=== PATIENT | female | born 1950 | race Caucasian/White ===

== ENCOUNTER 2017-03-12 21:58 | Inpatient (IN) | payer MEDICARE, SELFPAY ==
[2017-03-12 22:01] VITALS: BP 140/90; PULSE 90; RESP 20; TEMP 37.2; O2SAT 95; BMI 24.7
--- NOTE | 2017-03-12 23:13 | RAD_ITS ---
STUDY: X-RAY CHEST REASON FOR EXAM: Female, 67 years old. 100.1, chills, coughing since last night. Chemotherapy 03/04. History of breast cancer. TECHNIQUE: PA and lateral views of the chest. COMPARISON: 02/27/2017 FINDINGS: Stable left internal jugular port with catheter tip over the mid superior vena cava. Superimposed monitor leads, surgical clips right axilla with right mastectomy. There is stable hyperinflation interstitial prominence. There is left retrocardiac opacification, new since previous exam. There is no demonstrated pleural abnormality. Normal size heart. Normal mediastinum and wil. Normal visualized pulmonary arteries. There is atherosclerotic calcification of the aortic arch with tortuosity. There is demineralization of the osseous structures. Stable compression T12 vertebral body. Normal visualized ribs, clavicles, and shoulders. There is no demonstrated abnormality of the visualized soft tissue structures of the upper abdomen. RAD/Chest PA and Lateral IMPRESSION: Hyperinflation, mild chronic appearing interstitial lung disease. New airspace disease left retrocardiac lung possible early pneumonia. Other nonacute findings as outlined above. Electronically Signed: Ramya Mayberry MD at 1:05 EST , Service support ,
[2017-03-12 23:21] VITALS: BP 127/89; PULSE 92; RESP 26; O2SAT 96
[2017-03-12] MEDS: 0.9% Normal Saline 1,000 ML 125 ML IV (23:58)
[2017-03-13] VITALS (13 sets, daily range): BP systolic 110–127; BP diastolic 52–99; PULSE 80–101; RESP 17–24; TEMP 36.6–36.9; O2SAT 95–98; BMI 23.8
[2017-03-13 00:08] LABS: Hematocrit 35.4 % (37-47); Hemoglobin 11.7 g/dl (12.0-15.0); Mean Corp Hgb Conc 33.1 g/gl (32-36); Mean Corpuscular Hgb 30.1 pg (27.0-32.0); Mean Platelet Vol. 10.4 fl (6.2-12.0); Platelet Count 268 K/mm3 (150-450); RBC Distribution Width CV 16.1 % (11.6-14.6); RBC Distribution Width SD 53.4 fl (35.1-43.9); Red Blood Count 3.89 M/mm3 (4.2-5.4); White Blood Count 29.3 K/mm3 (4.4-11.0)
[2017-03-13 00:10] LABS: Differential Indicated MANUAL DIFF; POSITIVE COUNT YES; POSITIVE DIFFERENTIAL YES; POSITIVE MORPHOLOGY YES
[2017-03-13 00:21] LABS: ALB/GLOB Ratio 0.9 RATIO (0.9-2.4); AST(SGOT) 13 U/L (15-37); Alanine Aminotransfer ALT/SGPT 20 U/L (12-78); Albumin, Serum 3.2 g/dL (3.4-5.0); Alkaline Phosphatase 156 U/L (45-117); Anion Gap 11 (5-15); BUN 11 mg/dL (7-18); BUN/Creat Ratio 21.9 RATIO (10-20); Calcium,Total 8.8 mg/dL (8.5-10.1); Chloride 102 mmol/L (98-107); EST Glomerular Filtration Rate 130 mL/min (>60); Est Glom Filt Rate - Afr Amer 157 mL/min (>60); Estimated Creatinine Clearance 47.35 ml/min; Globulin 3.6 g/dL (2.2-4.2); Glucose 83 mg/dL (70-110); Potassium 3.5 mmol/L (3.5-5.1); Protein, Total 6.8 g/dL (6.4-8.2); Sodium Level 137 mmol/L (136-145)
[2017-03-13 00:53] LABS: Anisocytosis 1+; Hypochromasia RARE; Lymphocyte 5 % (19-41); Metamyelocyte 3 % (0-1); Microcytosis 1+; Monocyte 4 % (0-10); Myelocyte 1 (0-0); Neutrophil-Band 9 % (0-5); Neutrophil-Segmented 78 % (47-70); Polychromasia 1+; Total Cells Counted 100 (MANUAL DIFF)
[2017-03-13 00:54] LABS: Dohle Bodies RARE; Toxic Granulation 1+; Vacuolated Cells RARE
[2017-03-13 00:55] LABS: Absolute Lymphocyte Count 1.47 X10^3/ul (0.83-4.51); Absolute Neutrophil Count 25.5 X10^3/uL (2.0-7.7)
[2017-03-13 00:59] LABS: Bacteria 0 SEEN /hpf (None Seen)
[2017-03-13 01:01] LABS: Color, Urine Yellow (Yellow); Glucose, Dipstick Normal (Normal); Leukocyte Esterase-Dipstick 100 /ul (Negative); Nitrite-Dipstick Negative (Negative); Occult Blood-Urine 25 /ul (Negative); Protein-Dipstick 15 mg/dl (Negative); Urine Bilirubin Dipstick Negative (Negative); Urine Clarity Sl. Cloudy (Clear); Urine Urobilinogen Normal (Normal)
[2017-03-13 01:05] LABS: Ketone-Dipstick 150 mg/dl (Negative)
[2017-03-13 01:08] LABS: Mucous, Urine 2+ /hpf (<or=2+); Red Blood Cells-Urine 0-5 SEEN /hpf (0-5); Squamous Epithelial Cells - UA > 100 SEEN /hpf (5-10); White Blood Cells 10-25 SEEN /hpf (0-5)
--- NOTE | 2017-03-13 01:28 | ED.DCSUM_ITS ---
- ER Visit Summary Date of Service: 03/13/17 Chief Complaint: Fever 100.9 and cough recent chemotherapy History of Present Illness: The patient is a 67 F history of stage II breast cancer status post mastectomy who received her third course of chemotherapy March 04 presents with documented temperature 100.9, cough and not feeling well. She denies headache, double vision, blurred vision loss of vision. She denies photophobia. She denies earache or sore throat. Her cough is nonproductive. She has no chest pain of any type. She does plan of nausea without vomiting diarrhea. She denies dysuria, frequency, urgency or hematuria. She denies any skin lesions or bruising easily. Physical Examination: Vital signs are unremarkable. Patient appears ill. She is thin and pale. Pupils equal round reactive. Extra muscle intact. Nares slight boggy nasal mucosa. Posterior pharyngeal erythema x-ray. Mucosa is dry. TMs are normal. Heart is regular without murmur, gallop or rub. Lungs are without wheeze, rales or rhonchi. Breath sounds are noted bilaterally. Abdomen is soft nontender with no palpable semester no bruit. There are no skin lesions noted. Neuro exam is nonfocal. Test Results: White count is 29.3 thousand with 78 segs, 9 bands and myelocytes and metamyelocytes with toxic granulation. Electrode panel was unremarkable. Urine is a contaminated specimen. Lactate is pending. Chest x-ray reveals a left lower lobe infiltrate that is new from February 17. Emergency Department Course and Treatment: Neutropenic order set was initiated. Based on chest x-ray findings patient received 700 mg of levofloxacin IV piggyback. Treatment Plan: IV antibiotics, admission to the hospital Disposition: [facility] admission Impression: 1. Left lower lobe pneumonia 2. Sepsis 3. Immune suppressed patient 4. Stage II breast cancer, right 5. Status post total mastectomy This note was generated with [employer] dictation software. It may contain incorrect words, spelling, and punctuation that were not noted in review of the chart prior to signing ED Disposition - Plan for ED Patient: Chief Complaint: Fever Referrals: Weston Tobar MD [Primary Care Provider] -
--- NOTE | 2017-03-13 01:30 | PCM.HP.STD ---
Problem List (1) Chronic back pain Status: Chronic Qualifiers: Back pain location: back pain in unspecified location Back pain laterality: unspecified Qualified Code(s): M54.9 - Dorsalgia, unspecified; G89.29 - Other chronic pain (2) IBS (irritable bowel syndrome) Status: Chronic Qualifiers: Irritable bowel syndrome type: unspecified Qualified Code(s): K58.9 - Irritable bowel syndrome without diarrhea (3) GERD (gastroesophageal reflux disease) Status: Chronic Qualifiers: Esophagitis presence: esophagitis presence not specified Qualified Code(s): K21.9 - Gastro-esophageal reflux disease without esophagitis (4) Rheumatoid arthritis Status: Chronic Qualifiers: Rheumatoid arthritis location: unspecified site Rheumatoid factor presence: unspecified presence Qualified Code(s): M06.9 - Rheumatoid arthritis, unspecified (5) Anxiety and depression Status: Chronic (6) Invasive ductal carcinoma of right breast Status: Chronic Comment: Patient complains of pain all over body area as well as in her chest did give her her Percocet 5/325#15 but states she would have to get any additional pain meds from oncology if she needed more for pain due to chemo. History of Present Illness Date of Admission: 03/13/17 Chief Complaint: Fever, Chills, Coughing, Recent chemotherapy The patient is a 67 y/o F w/ PMHx: Rheumatoid Arthritis, Chronic Back Pain, IBS, Anxiety and Depression, Invasive ductal carcinoma of right breast s/p mastectomy, ongoing chemotherapy (03/04/17 last chemotherapy) following w/ Dr. Esparza who presents to the [facility] ED on 03/13/17 w/ history of ongoing fever, chills, cough, dyspnea x 24 hours. In the ED work-up included T 98.9, HR 90s, BP 127/89, RR 26-->20, 95% on RA, CBC w/ WBC 29.3, Hgb 11.7, Plts 268 with L shift, CMP w/ pending LA, alk phos 156, AST/ALT 13/20, UA poor sample, CXR w/ hyperinflation, mild chronic appearing interstitial lung disease, new airspace disease left retrocardiac lung. In the ED patient administered NS, levaquin. Past Medical History Past Medical History (Chronic Problems): Chronic Problems (Last Reviewed 02/27/17 @ 11:10 by Bryanna Nieto) Chronic back pain (Chronic) IBS (irritable bowel syndrome) (Chronic) GERD (gastroesophageal reflux disease) (Chronic) Rheumatoid arthritis (Chronic) Anxiety and depression (Chronic) Invasive ductal carcinoma of right breast (Chronic) Patient complains of pain all over body area as well as in her chest did give her her Percocet 5/325#15 but states she would have to get any additional pain meds from oncology if she needed more for pain due to chemo. Allergies Antihistamines - Alkylamine Allergy (Verified 03/12/17 22:03) TACHYCARDIA Antihistamines - Ethanolamine Allergy (Verified 03/12/17 22:03) TACHYCARDIA Antihistamines - Ethylenediamine Allergy (Verified 03/12/17 22:03) TACHYCARDIA Antihistamines - Piperazine Allergy (Verified 03/12/17 22:03) TACHYCARDIA Antihistamines - Piperidine Allergy (Verified 03/12/17 22:03) TACHYCARDIA diphenhydramine [From Benadryl] Allergy (Verified 03/12/17 22:03) TACHYCARDIA Home Medications: Ambulatory Orders Medication Instructions Recorded ALPRAZolam [Xanax] 0.5 mg PO BID PRN PRN #30 11/17/16 Lidocaine/Prilocaine 2.5 % TP DAILY PRN 01/21/17 [Lidocaine-Prilocaine Cream] Omeprazole 20 mg PO DAILY 02/11/17 Ibuprofen [Ibuprofen Ib] 200 mg PO Q6H PRN PRN 02/27/17 Acetaminophen [Tylenol Extra 500 mg PO Q6H PRN PRN 03/12/17 Strength] Loratadine [Claritin] 10 mg PO DAILY 03/12/17 Surgical History: - - R mastectomy, port placement, , appendectomy, cholecystectomy, lymph node dissection R axilla, L TKR. Psychiatric History: Anxiety, Depression [employer] History: No pertinent [employer] history Lives: Spouse/ Significant Other Smoking Status: Light Smoker (<10/day) Tobacco Use: Cigarettes Alcohol: None Drugs: None - *Family History Maternal Family History: Family History (Last Reviewed 02/27/17 @ 11:10 by Bryanna Nieto) Mother Heart disease Diabetes Arthritis Father Heart disease History Items: - - Maternal family history of arthritis, heart disease, diabetes. Paternal Family History: Family History (Last Reviewed 02/27/17 @ 11:10 by Bryanna Nieto) Mother Heart disease Diabetes Arthritis Father Heart disease History Items: - - Paternal family history of heart disease. Review of Systems Constitutional: Reports: Chills, Fever, Malaise, Weakness, Fatigue. Denies: Weight Change HEENT: Denies: Head Aches, Sinus Congestion, Sinus Drainage Cardiovascular: Denies: Chest Pain, Palpitations Respiratory: Reports: Cough, Shortness of Breath, Shortness of breath at rest, Shortness of breath upon exertion, Sputum production Gastrointestinal: Denies: Abdominal Pain, Nausea, Vomiting Genitourinary: Denies: Dysuria Musculoskeletal: Denies: Joint Pain, Joint Tenderness Skin: Denies: Rash, Wounds Neurological: Denies: Numbness, Tingling, Focal weakness Psychiatric: Reports: Anxiety, Depression. Denies: Homicidal Ideations, Suicidal Ideations Hematologic/ Lymphatic: Reports: Anemia. Denies: Easy Bruising, Easy Bleeding VTE Information - Inpt Only VTE Present on Admission: No VTE Mechan Device Prophylaxis: SCD's VTE Pharm Prophylaxis ordered?: No Subjective: Seated upright in the ED bed, fatigued appearing, NAD. Objective: Physical Examination: General: awake, alert, oriented x 3 and cooperative, seated upright in the ED bed, fatigued appearance, ill appearing. Skin: normal color, turgor, no icterus, cyanosis. HEENT: AT/NC, EOMI, PERRLA, dry MM, no carotid bruits or JVD noted. Lungs: Diminished BS, coarse bases, L>R, occasional expiratory wheeze noted, mild effort. Heart: Regular rate and rhythm; no gallop, rub audible, L chest port in place. Abdomen: soft, NTTP, ND, normal BS, no HSM. Extremities: no cyanosis, clubbing, or edema. Neurological: patient awake, alert, oriented x 3; cognitive function intact; pupils equally reactive to light and accomodation; cranial nerves II-XII grossly normal, moving all 4 extremities, no focal deficits, strength severely globally decreased secondary to acute presentation. Psychiatric: affect appears flat, no acute evidence of depressive or anxiety feelings. - Physical Exam Vital Signs Temp Pulse Resp BP Pulse Ox 98.3 F 90 20 H 127/66 H 98 03/13/17 00:59 03/13/17 00:59 03/13/17 00:59 03/13/17 00:59 03/13/17 00:59 Oxygen Delivery Method Room Air Weight: 122 lb 12.76 oz Body Mass Index (BMI) 24.7 Laboratory Tests Past 24 Hrs 03/12/17 03/12/17 03/13/17 23:45 23:45 00:45 WBC 29.3 H RBC 3.89 L Hgb 11.7 L Hct 35.4 L MCV 91.0 MCH 30.1 MCHC 33.1 RDW 16.1 H RDW Differential 53.4 H Plt Count 268 MPV 10.4 Neut % (Auto) Not Reportable Absolute Neuts (auto) 25.5 H Absolute Lymphs (auto) 1.47 Total Counted 100 Neutrophils % (Manual) 78 H Band Neutrophils % 9 H Lymphocytes % (Manual) 5 L Monocytes % (Manual) 4 Metamyelocytes % 3 H Myelocytes % 1 H Differential Comment RARE Diff Path Review May foll Toxic Granulation 1+ Dohle Bodies RARE Polychromasia 1+ Hypochromasia RARE Anisocytosis 1+ Microcytosis 1+ Sodium 137 Potassium 3.5 Chloride 102 Carbon Dioxide 24.0 Anion Gap 11 BUN 11 Creatinine 0.50 L Estim Creat Clear Calc 47.35 Est GFR (MDRD) Af Amer 157 Est GFR (MDRD) Non-Af 130 BUN/Creatinine Ratio 21.9 H Glucose 83 Lactic Acid Calcium 8.8 Total Bilirubin 0.40 AST 13 L ALT 20 Alkaline Phosphatase 156 H Total Protein 6.8 Albumin 3.2 L Globulin 3.6 Albumin/Globulin Ratio 0.9 Urine Color Yellow Urine Clarity Sl. Cloudy Urine pH 6.0 Ur Specific [place] 1.020 Urine Protein 15 H Urine Glucose (UA) Normal Urine Ketones 150 H Urine Occult Blood 25 H Urine Nitrite Negative Urine Bilirubin Negative Urine Urobilinogen Normal Ur Leukocyte Esterase 100 H Urine RBC 0-5 SEEN Urine WBC 10-25 SEEN Ur Squamous Epith Cells > 100 SEEN Urine Bacteria 0 SEEN Urine Mucus 2+ 03/13/17 01:18 WBC RBC Hgb Hct MCV MCH MCHC RDW RDW Differential Plt Count MPV Neut % (Auto) Absolute Neuts (auto) Absolute Lymphs (auto) Total Counted Neutrophils % (Manual) Band Neutrophils % Lymphocytes % (Manual) Monocytes % (Manual) Metamyelocytes % Myelocytes % Differential Comment Diff Path Review Toxic Granulation Dohle Bodies Polychromasia Hypochromasia Anisocytosis Microcytosis Sodium Potassium Chloride Carbon Dioxide Anion Gap BUN Creatinine Estim Creat Clear Calc Est GFR (MDRD) Af Amer Est GFR (MDRD) Non-Af BUN/Creatinine Ratio Glucose Lactic Acid Pending Calcium Total Bilirubin AST ALT Alkaline Phosphatase Total Protein Albumin Globulin Albumin/Globulin Ratio Urine Color Urine Clarity Urine pH Ur Specific [place] Urine Protein Urine Glucose (UA) Urine Ketones Urine Occult Blood Urine Nitrite Urine Bilirubin Urine Urobilinogen Ur Leukocyte Esterase Urine RBC Urine WBC Ur Squamous Epith Cells Urine Bacteria Urine Mucus Assessment/Plan The patient is a 67 y/o F w/ PMHx: Rheumatoid Arthritis, Chronic Back Pain, IBS, Anxiety and Depression, Invasive ductal carcinoma of right breast s/p mastectomy, ongoing chemotherapy (03/04/17 last chemotherapy) following w/ Dr. Esparza who presents to the [facility] ED on 03/13/17 w/ history of ongoing fever, chills, cough, dyspnea x 24 hours. (1) Acute Sepsis secondary to Community Acquired Pneumonia: CXR w/ hyperinflation, mild chronic appearing interstitial lung disease, new airspace disease left retrocardiac lung. Admission CBC w/ WBC 29.3, LA pending. Will admit to [facility], maintain on oxygen with wean as tolerated to room air, continue ATC duonebs, PRN albuterol, maintained on IV Rocephin and Azithromycin, HOB, IS parameters w/ pending sputum cultures and urine antigens. Bld cx x 2 obtained in the ED. (2) Invasive ductal carcinoma of right breast: Recent Dx, 10/2016 s/p mastectomy, ongoing chemotherapy w/ 03/04/17 last chemotherapy, following w/ Dr. Esparza. Mag, phos pending. (3) Rheumatoid Arthritis: Not on agent, likely secondary to ongoing chemotherapy, encourage frequent position changes, PRN pain regimen. (4) Chronic Back Pain: Encourage frequent position changes, PRN pain regimen. (5) IBS: Not on regimen, defer to outpatient. (6) Anxiety and Depression: Maintain on home xanax regimen. (7) Tobacco Abuse: Encouraged cessation, inpatient consultation per RT, NR if desired. (8) DVT Prophylaxis: SCDs, lovenox. Code Visit Inpatient E&M: 54494 Init Hosp L3
--- NOTE | 2017-03-13 01:43 | HP.PCM_ITS ---
Problem List (1) Chronic back pain Status: Chronic Qualifiers: Back pain location: back pain in unspecified location Back pain laterality : unspecified Qualified Code(s): M54.9 - Dorsalgia, unspecified; G89.29 - Other chronic pain (2) IBS (irritable bowel syndrome) Status: Chronic Qualifiers: Irritable bowel syndrome type: unspecified Qualified Code(s): K58.9 - Irritable bowel syndrome without diarrhea (3) GERD (gastroesophageal reflux disease) Status: Chronic Qualifiers: Esophagitis presence: esophagitis presence not specified Qualified Code(s) : K21.9 - Gastro-esophageal reflux disease without esophagitis (4) Rheumatoid arthritis Status: Chronic Qualifiers: Rheumatoid arthritis location: unspecified site Rheumatoid factor presence : unspecified presence Qualified Code(s): M06.9 - Rheumatoid arthritis, unspecified (5) Anxiety and depression Status: Chronic (6) Invasive ductal carcinoma of right breast Status: Chronic Comment: Patient complains of pain all over body area as well as in her chest did give her her Percocet 5/325#15 but states she would have to get any additional pain meds from oncology if she needed more for pain due to chemo. History of Present Illness Date of Admission: 03/13/17 Chief Complaint: Fever, Chills, Coughing, Recent chemotherapy The patient is a 67 y/o F w/ PMHx: Rheumatoid Arthritis, Chronic Back Pain, IBS , Anxiety and Depression, Invasive ductal carcinoma of right breast s/p mastectomy, ongoing chemotherapy (03/04/17 last chemotherapy) following w/ Dr. Esparza who presents to the [facility] ED on 03/13/17 w/ history of ongoing fever, chills, cough, dyspnea x 24 hours. In the ED work-up included T 98.9, HR 90s, BP 127/89, RR 26-->20, 95% on RA, CBC w/ WBC 29.3, Hgb 11.7, Plts 268 with L shift, CMP w/ pending LA, alk phos 156, AST/ALT 13/20, UA poor sample, CXR w/ hyperinflation, mild chronic appearing interstitial lung disease, new airspace disease left retrocardiac lung. In the ED patient administered NS, levaquin. Past Medical History Past Medical History (Chronic Problems): Chronic Problems (Last Reviewed 02/27/17 @ 11:10 by Bryanna Nieto) Chronic back pain (Chronic) IBS (irritable bowel syndrome) (Chronic) GERD (gastroesophageal reflux disease) (Chronic) Rheumatoid arthritis (Chronic) Anxiety and depression (Chronic) Invasive ductal carcinoma of right breast (Chronic) Patient complains of pain all over body area as well as in her chest did give her her Percocet 5/325#15 but states she would have to get any additional pain meds from oncology if she needed more for pain due to chemo. Allergies Antihistamines - Alkylamine Allergy (Verified 03/12/17 22:03) TACHYCARDIA Antihistamines - Ethanolamine Allergy (Verified 03/12/17 22:03) TACHYCARDIA Antihistamines - Ethylenediamine Allergy (Verified 03/12/17 22:03) TACHYCARDIA Antihistamines - Piperazine Allergy (Verified 03/12/17 22:03) TACHYCARDIA Antihistamines - Piperidine Allergy (Verified 03/12/17 22:03) TACHYCARDIA diphenhydramine [From Benadryl] Allergy (Verified 03/12/17 22:03) TACHYCARDIA Home Medications: Ambulatory Orders Medication Instructions Recorded ALPRAZolam [Xanax] 0.5 mg PO BID PRN PRN #30 11/17/16 Lidocaine/Prilocaine 2.5 % TP DAILY PRN 01/21/17 [Lidocaine-Prilocaine Cream] Omeprazole 20 mg PO DAILY 02/11/17 Ibuprofen [Ibuprofen Ib] 200 mg PO Q6H PRN PRN 02/27/17 Acetaminophen [Tylenol Extra 500 mg PO Q6H PRN PRN 03/12/17 Strength] Loratadine [Claritin] 10 mg PO DAILY 03/12/17 Surgical History: - - R mastectomy, port placement, , appendectomy, cholecystectomy, lymph node dissection R axilla, L TKR. 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 Paternal Family History: Family History (Last Reviewed 02/27/17 @ 11:10 by Bryanna Nieto) Mother Heart disease Diabetes Arthritis Father Heart disease History Items: - - Paternal family history of heart disease. Review of Systems Constitutional: Reports: Chills, Fever, Malaise, Weakness, Fatigue. Denies: Weight Change HEENT: Denies: Head Aches, Sinus Congestion, Sinus Drainage Cardiovascular: Denies: Chest Pain, Palpitations Respiratory: Reports: Cough, Shortness of Breath, Shortness of breath at rest, Shortness of breath upon exertion, Sputum production Gastrointestinal: Denies: Abdominal Pain, Nausea, Vomiting Genitourinary: Denies: Dysuria Musculoskeletal: Denies: Joint Pain, Joint Tenderness Skin: Denies: Rash, Wounds Neurological: Denies: Numbness, Tingling, Focal weakness Psychiatric: Reports: Anxiety, Depression. Denies: Homicidal Ideations, Suicidal Ideations Hematologic/ Lymphatic: Reports: Anemia. Denies: Easy Bruising, Easy Bleeding VTE Information - Inpt Only VTE Present on Admission: No VTE Mechan Device Prophylaxis: SCD's VTE Pharm Prophylaxis ordered?: No Subjective: Seated upright in the ED bed, fatigued appearing, NAD. Objective: Physical Examination: General: awake, alert, oriented x 3 and cooperative, seated upright in the ED bed, fatigued appearance, ill appearing. Skin: normal color, turgor, no icterus, cyanosis. HEENT: AT/NC, EOMI, PERRLA, dry MM, no carotid bruits or JVD noted. Lungs: Diminished BS, coarse bases, L>R, occasional expiratory wheeze noted, mild effort. Heart: Regular rate and rhythm; no gallop, rub audible, L chest port in place. Abdomen: soft, NTTP, ND, normal BS, no HSM. Extremities: no cyanosis, clubbing, or edema. Neurological: patient awake, alert, oriented x 3; cognitive function intact; pupils equally reactive to light and accomodation; cranial nerves II-XII grossly normal, moving all 4 extremities, no focal deficits, strength severely globally decreased secondary to acute presentation. Psychiatric: affect appears flat, no acute evidence of depressive or anxiety feelings. - Physical Exam Vital Signs Temp Pulse Resp BP Pulse Ox 98.3 F 90 20 H 127/66 H 98 03/13/17 00:59 03/13/17 00:59 03/13/17 00:59 03/13/17 00:59 03/13/17 00:59 Oxygen Delivery Method Room Air Weight: 122 lb 12.76 oz Body Mass Index (BMI) 24.7 Laboratory Tests Past 24 Hrs 03/12/17 03/12/17 03/13/17 23:45 23:45 00:45 WBC 29.3 H RBC 3.89 L Hgb 11.7 L Hct 35.4 L MCV 91.0 MCH 30.1 MCHC 33.1 RDW 16.1 H RDW Differential 53.4 H Plt Count 268 MPV 10.4 Neut % (Auto) Not Reportable Absolute Neuts (auto) 25.5 H Absolute Lymphs (auto) 1.47 Total Counted 100 Neutrophils % (Manual) 78 H Band Neutrophils % 9 H Lymphocytes % (Manual) 5 L Monocytes % (Manual) 4 Metamyelocytes % 3 H Myelocytes % 1 H Differential Comment RARE Diff Path Review May foll Toxic Granulation 1+ Dohle Bodies RARE Polychromasia 1+ Hypochromasia RARE Anisocytosis 1+ Microcytosis 1+ Sodium 137 Potassium 3.5 Chloride 102 Carbon Dioxide 24.0 Anion Gap 11 BUN 11 Creatinine 0.50 L Estim Creat Clear Calc 47.35 Est GFR (MDRD) Af Amer 157 Est GFR (MDRD) Non-Af 130 BUN/Creatinine Ratio 21.9 H Glucose 83 Lactic Acid Calcium 8.8 Total Bilirubin 0.40 AST 13 L ALT 20 Alkaline Phosphatase 156 H Total Protein 6.8 Albumin 3.2 L Globulin 3.6 Albumin/Globulin Ratio 0.9 Urine Color Yellow Urine Clarity Sl. Cloudy Urine pH 6.0 Ur Specific [place] 1.020 Urine Protein 15 H Urine Glucose (UA) Normal Urine Ketones 150 H Urine Occult Blood 25 H Urine Nitrite Negative Urine Bilirubin Negative Urine Urobilinogen Normal Ur Leukocyte Esterase 100 H Urine RBC 0-5 SEEN Urine WBC 10-25 SEEN Ur Squamous Epith Cells > 100 SEEN Urine Bacteria 0 SEEN Urine Mucus 2+ 03/13/17 01:18 WBC RBC Hgb Hct MCV MCH MCHC RDW RDW Differential Plt Count MPV Neut % (Auto) Absolute Neuts (auto) Absolute Lymphs (auto) Total Counted Neutrophils % (Manual) Band Neutrophils % Lymphocytes % (Manual) Monocytes % (Manual) Metamyelocytes % Myelocytes % Differential Comment Diff Path Review Toxic Granulation Dohle Bodies Polychromasia Hypochromasia Anisocytosis Microcytosis Sodium Potassium Chloride Carbon Dioxide Anion Gap BUN Creatinine Estim Creat Clear Calc Est GFR (MDRD) Af Amer Est GFR (MDRD) Non-Af BUN/Creatinine Ratio Glucose Lactic Acid Pending Calcium Total Bilirubin AST ALT Alkaline Phosphatase Total Protein Albumin Globulin Albumin/Globulin Ratio Urine Color Urine Clarity Urine pH Ur Specific [place] Urine Protein Urine Glucose (UA) Urine Ketones Urine Occult Blood Urine Nitrite Urine Bilirubin Urine Urobilinogen Ur Leukocyte Esterase Urine RBC Urine WBC Ur Squamous Epith Cells Urine Bacteria Urine Mucus Assessment/Plan The patient is a 67 y/o F w/ PMHx: Rheumatoid Arthritis, Chronic Back Pain, IBS , Anxiety and Depression, Invasive ductal carcinoma of right breast s/p mastectomy, ongoing chemotherapy (03/04/17 last chemotherapy) following w/ Dr. Esparza who presents to the [facility] ED on 03/13/17 w/ history of ongoing fever, chills, cough, dyspnea x 24 hours. (1) Acute Sepsis secondary to Community Acquired Pneumonia: CXR w/ hyperinflation, mild chronic appearing interstitial lung disease, new airspace disease left retrocardiac lung. Admission CBC w/ WBC 29.3, LA pending. Will admit to [facility], maintain on oxygen with wean as tolerated to room air, continue ATC duonebs, PRN albuterol, maintained on IV Rocephin and Azithromycin, HOB, IS parameters w/ pending sputum cultures and urine antigens. Bld cx x 2 obtained in the ED. (2) Invasive ductal carcinoma of right breast: Recent Dx, 10/2016 s/p mastectomy , ongoing chemotherapy w/ 03/04/17 last chemotherapy, following w/ Dr. Esparza. Mag, phos pending. (3) Rheumatoid Arthritis: Not on agent, likely secondary to ongoing chemotherapy , encourage frequent position changes, PRN pain regimen. (4) Chronic Back Pain: Encourage frequent position changes, PRN pain regimen. (5) IBS: Not on regimen, defer to outpatient. (6) Anxiety and Depression: Maintain on home xanax regimen. (7) Tobacco Abuse: Encouraged cessation, inpatient consultation per RT, NR if desired. (8) DVT Prophylaxis: SCDs, lovenox. Code Visit Inpatient E&M: 25748 Init Hosp L3
[2017-03-13 01:46] LABS: Lactic Acid 0.9 mmol/L (0.4-2.0)
[2017-03-13] MEDS: Ceftriaxone 1 GM/50 ML BAG IV (03:55)
[2017-03-13] MEDS: 0.9% Normal Saline 1,000 ML 125 ML IV ×3 (03:57→20:23)
[2017-03-13] MEDS: 0.9% NaCl Peripheral Flush Adult/Peds IV (04:08)
[2017-03-13] MEDS: Ibuprofen 200 MG Tablet PO ×2 (04:09→19:53)
[2017-03-13 04:12] LABS: Magnesium 2.1 mg/dL (1.6-2.6); Phosphorus 3.1 mg/dL (2.5-4.9)
[2017-03-13] MEDS: Ipratropium/Albuterol Sulfate 3 ML AMPUL.NEB INHALATION ×3 (06:58→19:55)
--- NOTE | 2017-03-13 07:32 | CPS ---
patient does not want incentive spirometer
--- NOTE | 2017-03-13 09:00 | PCM.HOSP.N ---
Hospitalist Note The patient is admitted with left retrocardiac community-acquired pneumonia. Patient has symptoms of cough, sore throat, fever with chills at home. Her son at home was also sick with URI symptoms. Chest x-ray shows left retrocardiac infiltrate background of bilateral interstitial changes Patient did not had fever or chills. Currently 97% on room air. Patient follows Dr. Esparza for invasive ductal carcinoma of right breast. Patient was diagnosed in August 2016 and probably chemo was started in September 2016. Last chemo was on March 04, 2016 and next is due on 25 March. After that, she also plan for radiotherapy. The patient wants her oncologist to be informed. Currently, on IV ceftriaxone and Zithromax. Was given Levaquin 750 mg in the ER.
[2017-03-13 09:35] LABS: Absolute Lymphocyte Count 1.27 X10^3/ul (0.83-4.51); Absolute Neutrophil Count 15.1 X10^3/uL (2.0-7.7); Basophil# 0.03 X10^3/uL; Basophil% 0.2 % (0-1); Eosinophil# 0.04 X10^3/uL; Eosinophils% 0.2 % (0-5); Hemoglobin 10.4 g/dl (12.0-15.0); Lymphocyte # 1.27 X10^3/ul (4.0); Lymphocyte % 6.9 % (19-41); Mean Corp Hgb Conc 32.5 g/gl (32-36); Mean Corpuscular Hgb 29.5 pg (27.0-32.0); Mean Corpuscular Volume 90.9 fL (81-99); Mean Platelet Vol. 9.9 fl (6.2-12.0); Monocyte# 1.51 X10^3/uL; Monocyte% 8.2 % (0-10); Neutrophil # 15.05 X10^3/uL (2.7-7.7); Neutrophil % 81.8 % (47-70); Platelet Count 214 K/mm3 (150-450); RBC Distribution Width SD 52.8 fl (35.1-43.9); Red Blood Count 3.52 M/mm3 (4.2-5.4); White Blood Count 18.4 K/mm3 (4.4-11.0)
--- NOTE | 2017-03-13 09:53 | CASEMGMT ---
CLINTON BEE met with patient. CLINTON BEE assessment complete. See attached link for full assessment. Disposition Plan: Home Transition Planning/Care Coordination: Patient is independent, is connected with community providers, and has good support at home. Patient denies any home-going needs. CLINTON BEE will continue to follow patient's hospital course and will provided case management interventions should needs arise. CLINTON BEE handoff provided to Mal Coe RN CM, MS2 business case analyst.
[2017-03-13 09:56] LABS: Differential Indicated SCAN CRITERIA MET; POSITIVE COUNT YES; POSITIVE DIFFERENTIAL YES; POSITIVE MORPHOLOGY YES
[2017-03-13 09:57] LABS: Differential Comment SCANNED; Platelet Estimate ADEQUATE (ADEQ)
[2017-03-13 10:07] LABS: Pathologist Review Reviewed
[2017-03-13] MEDS: guaiFENesin 1,200 MG Tablet 1200 MG PO ×2 (10:18→21:03)
[2017-03-13] MEDS: Enoxaparin 40 MG/0.4 ML Syringe SC (10:18)
[2017-03-13] MEDS: Loratadine 10 MG Tablet PO (10:18)
[2017-03-13] MEDS: Famotidine 20 MG Tablet PO ×2 (10:18→21:03)
--- NOTE | 2017-03-13 12:48 | CHAPLAIN ---
Type of Pastoral Visit _x__ Initial Visit ___ Follow-up Visit ___ On-call Visit ___ General Patient Visit ___ Spiritual Assessment ___ Family Conference ___ Bereavement ___ Rapid Response ___ Code Blue ___ Other (describe below) Pastoral Care Referral From _x__ Patient ___ Family ___ Nurse ___ Physician ___ Restrike Hammer Operator ___ Vocational Nursing Instructor ___ Other (describe below) Sacrament/Intervention _x__ Active listening ___ Anointing ___ Tenriism ___ Bereavement ___ Communion ___ Idania exploration ___ _x__ Life review _x__ Prayer ___ Reconciliation ___ Sacrament of Sick _x__ Supportive presence ___ Wedding ___ Other (describe below) Pastoral Comments patient talks about her life, family, and her illness; pt identifies anger, doubts, the why me questions, fear, shock as experiences and feelings she has encountered since diagnosis of cancer; pt tells me that she missing her job and the many people that she would see day to day because 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
--- NOTE | 2017-03-13 16:34 | ONC.CONSULT ---
Consult Referring Physician: Dr. Geradro Jha Date of Service:: 03/13/17 Chief Complaint: Admitted for Pneumonia. History of Present Illness: 67-year-old woman was diagnosed with right breast cancer stage IIa) T2 and 0M0, ER NE positive HER-2 negative. Tumor size 2.5 cm sentinel node negative. Oncotype DX score 34. She had right modified radical mastectomy and sentinel node biopsy on November 15, 2016. She started adjuvant therapy with Taxotere and Cytoxan on January 21, 2017. She received cycle 3 on March 04, 2017. 3 days ago she developed cough, shortness of breath and fever. She came to the ER yesterday, was found to have left lower lobe pneumonia. Admitted and started on antibiotics. She feels better today. Power of Academic Coordinator: No Living Will: No Health History: Social History Smoking Status Light Smoker (<10/day) Allergies/Adverse Reactions: Allergy/AdvReac Type Severity Reaction Status Date / Time Antihistamines - Alkylamine Allergy TACHYCARDIA Verified 03/12/17 22:03 Antihistamines - Ethanolamine Allergy TACHYCARDIA Verified 03/12/17 22:03 Antihistamines - Allergy TACHYCARDIA Verified 03/12/17 22:03 Ethylenediamine Antihistamines - Piperazine Allergy TACHYCARDIA Verified 03/12/17 22:03 Antihistamines - Piperidine Allergy TACHYCARDIA Verified 03/12/17 22:03 diphenhydramine Allergy TACHYCARDIA Verified 03/12/17 22:03 [From Benadryl] Home Medications Medication Instructions Recorded ALPRAZolam [Xanax] 0.5 mg PO BID PRN PRN #30 11/17/16 Lidocaine/Prilocaine 2.5 % TP DAILY PRN 01/21/17 [Lidocaine-Prilocaine Cream] Omeprazole 20 mg PO DAILY 02/11/17 Ibuprofen [Ibuprofen Ib] 200 mg PO Q6H PRN PRN 02/27/17 Acetaminophen [Tylenol Extra 500 mg PO Q6H PRN PRN 03/12/17 Strength] Loratadine [Claritin] 10 mg PO DAILY 03/12/17 Review of Systems Constitutional:: Reports: Fatigue, Fever. Denies: Sweats Cardiovascular:: Denies: Chest pain, Palpitations, Dyspnea on exertion, Orthopnea, PND, Shortness of breath Respiratory: Denies: Cough, Hemoptysis, Shortness of Breath, Wheezing Gastrointestinal:: Denies: Abdominal pain, Nausea, Vomiting, Diarrhea, Constipation, Hematochezia Genitourinary: Denies: Dysuria, Hematuria, 15, Flank pain Musculoskeletal:: Denies: Back pain, Myalgia, Arthralgia Skin: Denies: Rash, Skin Changes, Wounds Neurological:: Denies: Headache, Dizziness, Visual changes, Tinnitus, Hearing loss Psychiatric: Denies: Anxiety, Depression, Homicidal Ideations, Suicidal Ideations Vital Signs Height 5 ft Weight: 55.2 kg Weight in Pounds 121.7 lbs Pulse Ox 97 Temperature 98.1 F Pulse Rate 82 Respiratory Rate 18 Blood Pressure 110/52 Blood Pressure Position Sitting - Physical Exam General: Alert, Oriented x3, No apparent distress HEENT: Atraumatic, PERRLA, EOMI, Normocephalic Oropharynx:: Dry mucosa Neck:: Supple, Trachea midline. Negative for: JVD, bilateral Cardiac:: Regular rate, Regular rhythm, Normal S1, Normal S2. Negative for: Murmur Lungs: Clear to auscultation, Excusion symmetrical. Negative for: Rhonchi, Wheezes Abdomen:: Bowel sounds x 4, Soft, Non-tender, Non-distended. Negative for: Hepatosplenomegaly Extremities:: Negative for: Cyanosis, Edema Neurological: Neuro grossly intact Skin:: Negative for: Lesions, Rash, Petechiae, Ecchymosis Psychiatric:: Appropriate affect, Euthymic Lymphatics:: Negative for: Cervical lymphadenopathy, Supraclavicular lymphadenopathy, Axillary lymphadenopathy Laboratory Data: Microbiology 03/13/17 04:15 Gram Stain - Final Sputum, Expectorated/Coughed Laboratory Tests 03/13/17 Range/Units 09:20 WBC 18.4 H (4.4-11.0) K/mm3 RBC 3.52 L (4.2-5.4) M/mm3 Hgb 10.4 L (12.0-15.0) g/dl Hct 32.0 L (37-47) % MCV 90.9 (81-99) fL MCH 29.5 (27.0-32.0) pg MCHC 32.5 (32-36) g/gl RDW 16.0 H (11.6-14.6) % RDW Differential 52.8 H (35.1-43.9) fl Plt Count 214 (150-450) K/mm3 MPV 9.9 (6.2-12.0) fl Immature Gran % (Auto) 2.700 H (0.0-0.9) % Neut % (Auto) 81.8 H (47-70) % Lymph % (Auto) 6.9 L (19-41) % [place] % (Auto) 8.2 (0-10) % Eos % (Auto) 0.2 (0-5) % Baso % (Auto) 0.2 (0-1) % Absolute Neuts (auto) 15.1 H (2.0-7.7) X10^3/uL Absolute Lymphs (auto) 1.27 (0.83-4.51) X10^3/ul Total Counted Not Reportable Differential Comment SCANNED Diff Path Review May foll Platelet Estimate ADEQUATE (ADEQ) Diagnostic Data: Diagnostic Data Chest X-Ray 03/12/17 23:13 IMPRESSION: Hyperinflation, mild chronic appearing interstitial lung disease. New airspace disease left retrocardiac lung possible early pneumonia. Other nonacute findings as outlined above. Electronically Signed: Ramya Mayberry MD at 1:05 EST , Service support , Assessment and Plan Left lower lobe Pneumonia. Right breast cancer on adjuvant chemotherapy, next cycle is due on 03/25/2017. Suggestion to continue management for Pneumonia. If stable, to discharge home for outpatient follow up with Dr. Esparza at [facility]. Medications: Prescriptions This Visit Medication Instructions Recorded Acetaminophen [Tylenol Extra 500 mg PO Q6H PRN PRN 03/12/17 Strength] Loratadine [Claritin] 10 mg PO DAILY 03/12/17 Medications Added to Medication List This Visit Category Date Time Status Azithromycin [Zithromax] 500 mg Med 03/13/17 10:00 Active Dextrose 5% 250 ml IV Q24 Enoxaparin [Lovenox] Med 03/13/17 10:00 Active 40 mg SC DAILY@1000 Famotidine [Pepcid] Med 03/13/17 10:00 Active 20 mg PO BID Guaifenesin [Mucinex] Med 03/13/17 10:00 Active 1,200 mg PO BID Loratadine [Claritin] Med 03/13/17 10:00 Active 10 mg PO DAILY Potassium Chloride [K-Dur] Med 03/13/17 08:47 Active 40 meq PO DAILYCM Primary Care Provider: Weston Tobar MD Referring Provider: (1) Pneumonia Status: Acute (2) Invasive ductal carcinoma of right breast Status: Chronic Comment: Patient complains of pain all over body area as well as in her chest did give her her Percocet 5/325#15 but states she would have to get any additional pain meds from oncology if she needed more for pain due to chemo. Code Visit Office Visits / Consults: [id number] IP Consult L4
--- NOTE | 2017-03-13 16:44 | CON.PCM_ITS ---
Consult Referring Physician: Dr. Gerardo Jha Date of Service:: 03/13/17 Chief Complaint: Admitted for Pneumonia. History of Present Illness: 67-year-old woman was diagnosed with right breast cancer stage IIa) T2 and 0M0, ER [place] positive HER-2 negative. Tumor size 2.5 cm sentinel node negative. Oncotype DX score 34. She had right modified radical mastectomy and sentinel node biopsy on November 15, 2016. She started adjuvant therapy with Taxotere and Cytoxan on January 21, 2017. She received cycle 3 on March 04, 2017. 3 days ago she developed cough, shortness of breath and fever. She came to the ER yesterday, was found to have left lower lobe pneumonia. Admitted and started on antibiotics. She feels better today. Power of Butter Wrapper: No Living Will: No Health History: Social History Smoking Status Light Smoker (<10/day) Allergies/Adverse Reactions: Allergy/AdvReac Type Severity Reaction Status Date / Time Antihistamines - Alkylamine Allergy TACHYCARDIA Verified 03/12/17 22:03 Antihistamines - Ethanolamine Allergy TACHYCARDIA Verified 03/12/17 22:03 Antihistamines - Allergy TACHYCARDIA Verified 03/12/17 22:03 Ethylenediamine Antihistamines - Piperazine Allergy TACHYCARDIA Verified 03/12/17 22:03 Antihistamines - Piperidine Allergy TACHYCARDIA Verified 03/12/17 22:03 diphenhydramine Allergy TACHYCARDIA Verified 03/12/17 22:03 [From Benadryl] Home Medications Medication Instructions Recorded ALPRAZolam [Xanax] 0.5 mg PO BID PRN PRN #30 11/17/16 Lidocaine/Prilocaine 2.5 % TP DAILY PRN 01/21/17 [Lidocaine-Prilocaine Cream] Omeprazole 20 mg PO DAILY 02/11/17 Ibuprofen [Ibuprofen Ib] 200 mg PO Q6H PRN PRN 02/27/17 Acetaminophen [Tylenol Extra 500 mg PO Q6H PRN PRN 03/12/17 Strength] Loratadine [Claritin] 10 mg PO DAILY 03/12/17 Review of Systems Constitutional:: Reports: Fatigue, Fever. Denies: Sweats Cardiovascular:: Denies: Chest pain, Palpitations, Dyspnea on exertion, Orthopnea, PND, Shortness of breath Respiratory: Denies: Cough, Hemoptysis, Shortness of Breath, Wheezing Gastrointestinal:: Denies: Abdominal pain, Nausea, Vomiting, Diarrhea, Constipation, Hematochezia Genitourinary: Denies: Dysuria, Hematuria, 15, Flank pain Musculoskeletal:: Denies: Back pain, Myalgia, Arthralgia Skin: Denies: Rash, Skin Changes, Wounds Neurological:: Denies: Headache, Dizziness, Visual changes, Tinnitus, Hearing loss Psychiatric: Denies: Anxiety, Depression, Homicidal Ideations, Suicidal Ideations Vital Signs Height 5 ft Weight: 55.2 kg Weight in Pounds 121.7 lbs Pulse Ox 97 Temperature 98.1 F Pulse Rate 82 Respiratory Rate 18 Blood Pressure 110/52 Blood Pressure Position Sitting - Physical Exam General: Alert, Oriented x3, No apparent distress HEENT: Atraumatic, PERRLA, EOMI, Normocephalic Oropharynx:: Dry mucosa Neck:: Supple, Trachea midline. Negative for: JVD, bilateral Cardiac:: Regular rate, Regular rhythm, Normal S1, Normal S2. Negative for: Murmur Lungs: Clear to auscultation, Excusion symmetrical. Negative for: Rhonchi, Wheezes Abdomen:: Bowel sounds x 4, Soft, Non-tender, Non-distended. Negative for: Hepatosplenomegaly Extremities:: Negative for: Cyanosis, Edema Neurological: Neuro grossly intact Skin:: Negative for: Lesions, Rash, Petechiae, Ecchymosis Psychiatric:: Appropriate affect, Euthymic Lymphatics:: Negative for: Cervical lymphadenopathy, Supraclavicular lymphadenopathy, Axillary lymphadenopathy Laboratory Data: Microbiology 03/13/17 04:15 Gram Stain - Final Sputum, Expectorated/Coughed Laboratory Tests 3 03/13/17 Range/Units 09:20 WBC 18.4 H (4.4-11.0) K/mm3 RBC 3.52 L (4.2-5.4) M/mm3 Hgb 10.4 L (12.0-15.0) g/dl Hct 32.0 L (37-47) % MCV 90.9 (81-99) fL MCH 29.5 (27.0-32.0) pg MCHC 32.5 (32-36) g/gl RDW 16.0 H (11.6-14.6) % RDW Differential 52.8 H (35.1-43.9) fl Plt Count 214 (150-450) K/mm3 MPV 9.9 (6.2-12.0) fl Immature Gran % (Auto) 2.700 H (0.0-0.9) % Neut % (Auto) 81.8 H (47-70) % Lymph % (Auto) 6.9 L (19-41) % [place] % (Auto) 8.2 (0-10) % Eos % (Auto) 0.2 (0-5) % Baso % (Auto) 0.2 (0-1) % Absolute Neuts (auto) 15.1 H (2.0-7.7) X10^3/uL Absolute Lymphs (auto) 1.27 (0.83-4.51) X10^3/ul Total Counted Not Reportable Differential Comment SCANNED Diff Path Review May foll Platelet Estimate ADEQUATE (ADEQ) Diagnostic Data: Diagnostic Data Chest X-Ray 03/12/17 23:13 IMPRESSION: Hyperinflation, mild chronic appearing interstitial lung disease. New airspace disease left retrocardiac lung possible early pneumonia. Other nonacute findings as outlined above. Electronically Signed: Ramya Mayberry MD at 1:05 EST , Service support , Assessment and Plan Left lower lobe Pneumonia. Right breast cancer on adjuvant chemotherapy, next cycle is due on 03/25/2017. Suggestion to continue management for Pneumonia. If stable, to discharge home for outpatient follow up with Dr. Esparza at [facility]. Medications: Prescriptions This Visit Medication Instructions Recorded Acetaminophen [Tylenol Extra 500 mg PO Q6H PRN PRN 03/12/17 Strength] Loratadine [Claritin] 10 mg PO DAILY 03/12/17 Medications Added to Medication List This Visit Category Date Time Status Azithromycin [Zithromax] 500 mg Med 03/13/17 10:00 Active Dextrose 5% 250 ml IV Q24 Enoxaparin [Lovenox] Med 03/13/17 10:00 Active 40 mg SC DAILY@1000 Famotidine [Pepcid] Med 03/13/17 10:00 Active 20 mg PO BID Guaifenesin [Mucinex] Med 03/13/17 10:00 Active 1,200 mg PO BID Loratadine [Claritin] Med 03/13/17 10:00 Active 10 mg PO DAILY Potassium Chloride [K-Dur] Med 03/13/17 08:47 Active 40 meq PO DAILYCM Primary Care Provider: Weston Tobar MD Referring Provider: (1) Pneumonia Status: Acute (2) Invasive ductal carcinoma of right breast Status: Chronic Comment: Patient complains of pain all over body area as well as in her chest did give her her Percocet 5/325#15 but states she would have to get any additional pain meds from oncology if she needed more for pain due to chemo. Code Visit Office Visits / Consults: [id number] IP Consult L4
[2017-03-14] VITALS (9 sets, daily range): BP systolic 98–121; BP diastolic 57–70; PULSE 76–89; RESP 16–19; TEMP 36.4–36.8; O2SAT 96–98
[2017-03-14] MEDS: Ipratropium/Albuterol Sulfate 3 ML AMPUL.NEB INHALATION ×4 (01:05→19:55)
[2017-03-14] MEDS: guaiFENesin 10 ML UDC (200MG/10ML) PO (03:35)
[2017-03-14] MEDS: oxyCODONE 5 MG Tablet PO (03:40)
[2017-03-14] MEDS: 0.9% Normal Saline 1,000 ML 125 ML IV (03:52)
[2017-03-14 07:09] LABS: Hematocrit 29.5 % (37-47); Hemoglobin 9.4 g/dl (12.0-15.0); Mean Corp Hgb Conc 31.9 g/gl (32-36); Mean Corpuscular Hgb 29.9 pg (27.0-32.0); Mean Corpuscular Volume 93.9 fL (81-99); POSITIVE COUNT YES; POSITIVE DIFFERENTIAL NO; POSITIVE MORPHOLOGY YES; Platelet Count 189 K/mm3 (150-450); RBC Distribution Width CV 16.2 % (11.6-14.6); RBC Distribution Width SD 53.3 fl (35.1-43.9); Red Blood Count 3.14 M/mm3 (4.2-5.4); White Blood Count 16.7 K/mm3 (4.4-11.0)
[2017-03-14 07:10] LABS: Differential Indicated MANUAL DIFF
[2017-03-14 07:31] LABS: Anion Gap 7 (5-15); BUN 6 mg/dL (7-18); BUN/Creat Ratio 16.3 RATIO (10-20); Calcium,Total 7.8 mg/dL (8.5-10.1); Chloride 115 mmol/L (98-107); Creatinine, Serum 0.37 mg/dL (0.55-1.02); EST Glomerular Filtration Rate 186 mL/min (>60); Est Glom Filt Rate - Afr Amer 225 mL/min (>60); Estimated Creatinine Clearance 38.68 ml/min; Glucose 124 mg/dL (70-110); Potassium 3.7 mmol/L (3.5-5.1); Sodium Level 144 mmol/L (136-145)
[2017-03-14 07:48] LABS: Lymphocyte 9 % (19-41); Metamyelocyte 5 % (0-1); Neutrophil-Band 1 % (0-5); Neutrophil-Segmented 85 % (47-70); Platelet Estimate ADEQUATE (ADEQ); Total Cells Counted 100 (MANUAL DIFF); Toxic Granulation 1+
[2017-03-14 07:49] LABS: Absolute Neutrophil Count 14.4 X10^3/uL (2.0-7.7); Red Cell Morphology NORM C+C NORMAL (NORM C&C)
[2017-03-14] MEDS: Ceftriaxone 1 GM/50 ML BAG IV (09:35)
[2017-03-14] MEDS: Loratadine 10 MG Tablet PO (09:38)
[2017-03-14] MEDS: Famotidine 20 MG Tablet PO ×2 (09:38→21:35)
[2017-03-14] MEDS: Enoxaparin 40 MG/0.4 ML Syringe SC (09:38)
[2017-03-14 10:37] LABS: Pathologist Review Reviewed
[2017-03-14] MEDS: guaiFENesin 1,200 MG Tablet 1200 MG PO ×2 (11:56→21:35)
[2017-03-14] MEDS: guaiFENesin/Codeine 5 ML UDC 10 ML PO ×3 (12:00→21:35)
--- NOTE | 2017-03-14 15:17 | PCM.PN.HOSP ---
Patient Problems: Active and Suspected Problems (Last Reviewed 02/27/17 @ 11:10 by Bryanna Nieto) Pneumonia (Acute) Subjective: Patient complaint of sore throat, cough. No fever. She does still has leukocytosis with left shift. Vitals/I&O's: Vital Signs Temp Pulse Resp BP Pulse Ox 98.0 F 82 16 118/69 96 03/14/17 09:30 03/14/17 12:35 03/14/17 12:35 03/14/17 09:30 03/14/17 12:35 Oxygen Delivery Method Room Air Weight: 121 lb 11.123 oz Body Mass Index (BMI) 23.8 Intake and Output for Last 24 Hours 03/12/17 03/13/17 03/14/17 23:59 23:59 23:59 Intake Total 806 / 806 2761 / 2761 Balance 806 / 806 2761 / 2761 General: Alert, Oriented x3, Cooperative HEENT: Atraumatic, PERRLA, EOMI, Normocephalic Oral: - - No oropharyngeal thrush noted Neck: Supple, No JVD, Negative Carotid Bruits Lungs: Diminished, Rhonchi Cardiovascular: Regular rate, Regular Rhythm, Normal S1, Normal S2, No murmurs Abdomen: Bowel Sounds Present, Soft, Non Tender, Non-Distended Extremities: No edema, Capillary Refill Less than 3 Seconds Skin: No rashes, No breakdown Musculoskeletal: No Tenderness to Palpation of Joints or Extremities Neurological: Cranial nerves II-XII grossly intact Psych/Mental Status: Normal Affect, Appropriate Microbiology Past 72 Hours 03/13/17 04:15 Sputum, Expectorated/Coughed Gram Stain - Final 03/13/17 04:15 Sputum, Expectorated/Coughed Respiratory Culture - Preliminary Appears to be normal respiratory rosy. Further studies to follow. Laboratory Results 03/13/17 09:20: Diff Path Review Reviewed 03/14/17 06:12: WBC 16.7 H, RBC 3.14 L, Hgb 9.4 L, Hct 29.5 L, MCV 93.9, MCH 29.9, MCHC 31.9 L, RDW 16.2 H, RDW Differential 53.3 H, Plt Count 189, MPV 11.0, Neut % (Auto) Not Reportable, Absolute Neuts (auto) 14.4 H, Absolute Lymphs (auto) 1.50, Total Counted 100, Neutrophils % (Manual) 85 H, Band Neutrophils % 1, Lymphocytes % (Manual) 9 L, Metamyelocytes % 5 H, Diff Path Review May foll, Toxic Granulation 1+, Platelet Estimate ADEQUATE, RBC Morphology NORM C+C 03/14/17 06:12: Sodium 144, Potassium 3.7, Chloride 115 H, Carbon Dioxide 22.0, Anion Gap 7, BUN 6 L, Creatinine 0.37 L, Estim Creat Clear Calc 38.68, Est GFR (MDRD) Af Amer 225, Est GFR (MDRD) Non-Af 186, BUN/Creatinine Ratio 16.3, Glucose 124 H, Calcium 7.8 L Current Medications Acetaminophen (Tylenol) 650 mg PO Q4H PRN PRN PRN Reason: FEVER Acetaminophen (Tylenol) 650 mg PO Q6H PRN PRN PRN Reason: Mild Pain (scale 0-3)/T>100.7 Al Hydroxide/Mg Hydroxide (Mylanta Ii) 30 ml PO Q6H PRN PRN PRN Reason: Gastric burning Albuterol Sulfate (Ventolin Aerosols) 2.5 mg INHALATION Q2H PRN PRN PRN Reason: SHORTNESS OF BREATH Albuterol/Ipratropium (Duoneb) 3 ml INHALATION Q6H.RT [facility] Last Admin: 03/14/17 12:30 Dose: 3 ml Alprazolam (Xanax) 0.5 mg PO BID PRN PRN PRN Reason: ANXIETY Docusate Sodium (Colace) 100 mg PO BID PRN PRN PRN Reason: Constipation Enoxaparin Sodium (Lovenox) 40 mg SC DAILY@1000 [facility] Last Admin: 03/14/17 09:38 Dose: 40 mg Famotidine (Pepcid) 20 mg PO BID [facility] Last Admin: 03/14/17 09:38 Dose: 20 mg Guaifenesin (Mucinex) 1,200 mg PO BID [facility] Last Admin: 03/14/17 11:56 Dose: 1,200 mg Guaifenesin/Codeine Phosphate (Robitussin Ac) 10 ml PO Q4HWA [facility] Last Admin: 03/14/17 12:00 Dose: 10 ml Azithromycin 500 mg/ Dextrose 255 mls @ 250 mls/hr IV Q24 [facility] Stop: 03/15/17 11:02 Last Admin: 03/14/17 10:19 Dose: 250 mls/hr Ceftriaxone Sodium (Rocephin) 1 gm in 50 mls @ 100 mls/hr IV Q24 [facility] Last Admin: 03/14/17 09:35 Dose: 100 mls/hr Sodium Chloride () 250 mls @ 15 mls/hr IV .[id number] PRN PRN Reason: SALINE FLUSH Ibuprofen (Motrin) 200 mg PO Q6H PRN PRN PRN Reason: PAIN Last Admin: 03/13/17 19:53 Dose: 200 mg Lidocaine HCl (Xylocaine Viscous) 5 ml PO Q3H PRN PRN Reason: severe throat pain Last Admin: 03/14/17 11:56 Dose: 5 ml Lidocaine/Prilocaine (Emla Cream W/Tegaderm) 5 gm TOPICAL DAILY PRN PRN PRN Reason: PAIN Loratadine (Claritin) 10 mg PO DAILY [facility] Last Admin: 03/14/17 09:38 Dose: 10 mg Magnesium Hydroxide (Milk Of Magnesia) 30 ml PO DAILY PRN PRN PRN Reason: Constipation Morphine Sulfate (Morphine) 2 - 4 mg IV Q3H PRN PRN PRN Reason: Severe Pain (pain scale 6-10) Morphine Sulfate (Morphine) 1 - 2 mg IV Q4H PRN PRN PRN Reason: Moderate Pain (pain scale 4-5) Ondansetron HCl (Zofran) 4 mg IV Q8H PRN PRN PRN Reason: NAUSEA Oxycodone HCl (Oxyir) 5 mg PO Q4H PRN PRN PRN Reason: Moderate Pain (pain scale 4-5) Last Admin: 03/14/17 03:40 Dose: 5 mg Promethazine HCl (Phenergan (Ll)) 12.5 mg IV Q6H PRN PRN PRN Reason: NAUSEA/VOMITING Sodium Chloride () 5 - 30 ml IV UD PRN PRN Reason: SALINE FLUSH Last Admin: 03/13/17 04:08 Dose: 10 ml Throat Lozenges (Cepacol Sore Throat Lozenge) 1 lozenge MUCOUS MEM Q2H PRN PRN PRN Reason: SORE THROAT Assessment/Plan Active and Suspected Problems (Last Reviewed 02/27/17 @ 11:10 by Bryanna Nieto) Pneumonia (Acute) The patient is a 67 y/o F w/ PMHx: Rheumatoid Arthritis, Chronic Back Pain, IBS, Anxiety and Depression, Invasive ductal carcinoma of right breast s/p mastectomy, ongoing chemotherapy (03/04/17 last chemotherapy) following w/ Dr. Esparza who presents [facility] ED on 03/13/17 w/ history of ongoing fever, chills, cough, dyspnea x 24 hours. (1) Acute Sepsis secondary to left lower lobe community Acquired Pneumonia: And is being admitted on the gated bed. CXR with hyperinflation, mild chronic appearing interstitial lung disease, new airspace disease left retrocardiac lung. Admission CBC w/ WBC 29.3, LA normal. Continue oxygen with wean as tolerated to room air, continue ATC duonebs, PRN albuterol, maintained on IV Rocephin and Azithromycin. Blood culture is negative so far. Urinary antigens are negative. Sputum culture grows normal respiratory rosy. Upper respiratory infection with sore throat: On supportive treatment with lozenges and lidocaine oral suspension. (2) Invasive ductal carcinoma of right breast: Recent Dx, 10/2016 s/p mastectomy, ongoing chemotherapy w/ 03/04/17 last chemotherapy, following w/ Dr. Esparza. Dr. Gregory consult appreciated. Patient is right breast cancer stage IIa, T2 N0 M0, ER [place] positive, HER-2 negative. She had right modified radical mastectomy and sentinel node biopsy in November 15, 2069. Started on adjuvant chemotherapy on December 2016. She received third cycle on March 04, 2017. She also received Neupogen. Leukocytosis with left shift: WBC count is improving. I think leukocytosis probably due to Neupogen. (3) Rheumatoid Arthritis: Not on agent, likely secondary to ongoing chemotherapy, encourage frequent position changes, PRN pain regimen. (4) Chronic Back Pain: Encourage frequent position changes, PRN pain regimen. (5) IBS: Not on regimen, defer to outpatient. (6) Anxiety and Depression: Maintain on home xanax regimen. (7) Tobacco Abuse: Encouraged cessation, inpatient consultation per RT, nicotine patch. (8) DVT Prophylaxis: SCDs, lovenox. This note was generated with [employer] dictation software. Every effort was made to ensure accuracy, however computerized brush cleaner mistakes may be persist. Code Visit Inpatient E&M: 71434 [facility] Hosp L3
--- NOTE | 2017-03-14 15:28 | PN_ITS ---
Patient Problems: Active and Suspected Problems (Last Reviewed 02/27/17 @ 11:10 by Bryanna Nieto) Pneumonia (Acute) Subjective: Patient complaint of sore throat, cough. No fever. She does still has leukocytosis with left shift. Vitals/I&O's: Vital Signs Temp Pulse Resp BP Pulse Ox 98.0 F 82 16 118/69 96 03/14/17 09:30 03/14/17 12:35 03/14/17 12:35 03/14/17 09:30 03/14/17 12:35 Oxygen Delivery Method Room Air Weight: 121 lb 11.123 oz Body Mass Index (BMI) 23.8 Intake and Output for Last 24 Hours 03/12/17 03/13/17 03/14/17 23:59 23:59 23:59 Intake Total 806 / 806 2761 / 2761 Balance 806 / 806 2761 / 2761 General: Alert, Oriented x3, Cooperative HEENT: Atraumatic, PERRLA, EOMI, Normocephalic Oral: - - No oropharyngeal thrush noted Neck: Supple, No JVD, Negative Carotid Bruits Lungs: Diminished, Rhonchi Cardiovascular: Regular rate, Regular Rhythm, Normal S1, Normal S2, No murmurs Abdomen: Bowel Sounds Present, Soft, Non Tender, Non-Distended Extremities: No edema, Capillary Refill Less than 3 Seconds Skin: No rashes, No breakdown Musculoskeletal: No Tenderness to Palpation of Joints or Extremities Neurological: Cranial nerves II-XII grossly intact Psych/Mental Status: Normal Affect, Appropriate Microbiology Past 72 Hours 03/13/17 04:15 Sputum, Expectorated/Coughed Gram Stain - Final 03/13/17 04:15 Sputum, Expectorated/Coughed Respiratory Culture - Preliminary Appears to be normal respiratory rosy. Further studies to follow. Laboratory Results 03/13/17 09:20: Diff Path Review Reviewed 03/14/17 06:12: WBC 16.7 H, RBC 3.14 L, Hgb 9.4 L, Hct 29.5 L, MCV 93.9, MCH 29.9, MCHC 31.9 L, RDW 16.2 H, RDW Differential 53.3 H, Plt Count 189, MPV 11.0 , Neut % (Auto) Not Reportable, Absolute Neuts (auto) 14.4 H, Absolute Lymphs ( auto) 1.50, Total Counted 100, Neutrophils % (Manual) 85 H, Band Neutrophils % 1 , Lymphocytes % (Manual) 9 L, Metamyelocytes % 5 H, Diff Path Review May foll, Toxic Granulation 1+, Platelet Estimate ADEQUATE, RBC Morphology NORM C+C 03/14/17 06:12: Sodium 144, Potassium 3.7, Chloride 115 H, Carbon Dioxide 22.0, Anion Gap 7, BUN 6 L, Creatinine 0.37 L, Estim Creat Clear Calc 38.68, Est GFR ( MDRD) Af Amer 225, Est GFR (MDRD) Non-Af 186, BUN/Creatinine Ratio 16.3, Glucose 124 H, Calcium 7.8 L Current Medications Acetaminophen (Tylenol) 650 mg PO Q4H PRN PRN PRN Reason: FEVER Acetaminophen (Tylenol) 650 mg PO Q6H PRN PRN PRN Reason: Mild Pain (scale 0-3)/T>100.7 Al Hydroxide/Mg Hydroxide (Mylanta Ii) 30 ml PO Q6H PRN PRN PRN Reason: Gastric burning Albuterol Sulfate (Ventolin Aerosols) 2.5 mg INHALATION Q2H PRN PRN PRN Reason: SHORTNESS OF BREATH Albuterol/Ipratropium (Duoneb) 3 ml INHALATION Q6H.RT [facility] Last Admin: 03/14/17 12:30 Dose: 3 ml Alprazolam (Xanax) 0.5 mg PO BID PRN PRN PRN Reason: ANXIETY Docusate Sodium (Colace) 100 mg PO BID PRN PRN PRN Reason: Constipation Enoxaparin Sodium (Lovenox) 40 mg SC DAILY@1000 [facility] Last Admin: 03/14/17 09:38 Dose: 40 mg Famotidine (Pepcid) 20 mg PO BID [facility] Last Admin: 03/14/17 09:38 Dose: 20 mg Guaifenesin (Mucinex) 1,200 mg PO BID [facility] Last Admin: 03/14/17 11:56 Dose: 1,200 mg Guaifenesin/Codeine Phosphate (Robitussin Ac) 10 ml PO Q4HWA [facility] Last Admin: 03/14/17 12:00 Dose: 10 ml Azithromycin 500 mg/ Dextrose 255 mls @ 250 mls/hr IV Q24 [facility] Stop: 03/15/17 11:02 Last Admin: 03/14/17 10:19 Dose: 250 mls/hr Ceftriaxone Sodium (Rocephin) 1 gm in 50 mls @ 100 mls/hr IV Q24 [facility] Last Admin: 03/14/17 09:35 Dose: 100 mls/hr Sodium Chloride () 250 mls @ 15 mls/hr IV .[id number] PRN PRN Reason: SALINE FLUSH Ibuprofen (Motrin) 200 mg PO Q6H PRN PRN PRN Reason: PAIN Last Admin: 03/13/17 19:53 Dose: 200 mg Lidocaine HCl (Xylocaine Viscous) 5 ml PO Q3H PRN PRN Reason: severe throat pain Last Admin: 03/14/17 11:56 Dose: 5 ml Lidocaine/Prilocaine (Emla Cream W/Tegaderm) 5 gm TOPICAL DAILY PRN PRN PRN Reason: PAIN Loratadine (Claritin) 10 mg PO DAILY [facility] Last Admin: 03/14/17 09:38 Dose: 10 mg Magnesium Hydroxide (Milk Of Magnesia) 30 ml PO DAILY PRN PRN PRN Reason: Constipation Morphine Sulfate (Morphine) 2 - 4 mg IV Q3H PRN PRN PRN Reason: Severe Pain (pain scale 6-10) Morphine Sulfate (Morphine) 1 - 2 mg IV Q4H PRN PRN PRN Reason: Moderate Pain (pain scale 4-5) Ondansetron HCl (Zofran) 4 mg IV Q8H PRN PRN PRN Reason: NAUSEA Oxycodone HCl (Oxyir) 5 mg PO Q4H PRN PRN PRN Reason: Moderate Pain (pain scale 4-5) Last Admin: 03/14/17 03:40 Dose: 5 mg Promethazine HCl (Phenergan (Ll)) 12.5 mg IV Q6H PRN PRN PRN Reason: NAUSEA/VOMITING Sodium Chloride () 5 - 30 ml IV UD PRN PRN Reason: SALINE FLUSH Last Admin: 03/13/17 04:08 Dose: 10 ml Throat Lozenges (Cepacol Sore Throat Lozenge) 1 lozenge MUCOUS MEM Q2H PRN PRN PRN Reason: SORE THROAT Assessment/Plan Active and Suspected Problems (Last Reviewed 02/27/17 @ 11:10 by Bryanna Nieto) Pneumonia (Acute) The patient is a 67 y/o F w/ PMHx: Rheumatoid Arthritis, Chronic Back Pain, IBS , Anxiety and Depression, Invasive ductal carcinoma of right breast s/p mastectomy, ongoing chemotherapy (03/04/17 last chemotherapy) following w/ Dr. Esparza who presents to the [facility] ED on 03/13/17 w/ history of ongoing fever, chills, cough, dyspnea x 24 hours. (1) Acute Sepsis secondary to left lower lobe community Acquired Pneumonia: And is being admitted on the gated bed. CXR with hyperinflation, mild chronic appearing interstitial lung disease, new airspace disease left retrocardiac lung. Admission CBC w/ WBC 29.3, LA normal. Continue oxygen with wean as tolerated to room air, continue ATC duonebs, PRN albuterol, maintained on IV Rocephin and Azithromycin. Blood culture is negative so far. Urinary antigens are negative. Sputum culture grows normal respiratory rosy. Upper respiratory infection with sore throat: On supportive treatment with lozenges and lidocaine oral suspension. (2) Invasive ductal carcinoma of right breast: Recent Dx, 10/2016 s/p mastectomy , ongoing chemotherapy w/ 03/04/17 last chemotherapy, following w/ Dr. Esparza. Dr. Gregory consult appreciated. Patient is right breast cancer stage IIa, T2 N0 M0, ER [place] positive, HER-2 negative. She had right modified radical mastectomy and sentinel node biopsy in November 15, 2069. Started on adjuvant chemotherapy on December 2016. She received third cycle on March 04, 2017. She also received Neupogen. Leukocytosis with left shift: WBC count is improving. I think leukocytosis probably due to Neupogen. (3) Rheumatoid Arthritis: Not on agent, likely secondary to ongoing chemotherapy , encourage frequent position changes, PRN pain regimen. (4) Chronic Back Pain: Encourage frequent position changes, PRN pain regimen. (5) IBS: Not on regimen, defer to outpatient. (6) Anxiety and Depression: Maintain on home xanax regimen. (7) Tobacco Abuse: Encouraged cessation, inpatient consultation per RT, nicotine patch. (8) DVT Prophylaxis: SCDs, lovenox. This note was generated with [employer] dictation software. Every effort was made to ensure accuracy, however computerized machine turner mistakes may be persist. Code Visit Inpatient E&M: 93561 [facility] Hosp L3
[2017-03-15] VITALS (10 sets, daily range): BP systolic 102–130; BP diastolic 43–73; PULSE 79–90; RESP 14–20; TEMP 36.7–37.7; O2SAT 94–98
[2017-03-15] MEDS: guaiFENesin/Codeine 5 ML UDC 10 ML PO ×2 (05:21→09:43)
[2017-03-15] MEDS: Acetaminophen 325 MG Tablet 650 MG PO ×2 (05:29→23:28)
[2017-03-15] MEDS: 0.9% NaCl IVPB Med Flush (250 mL) 15 ML IV (05:29)
[2017-03-15] MEDS: Ipratropium/Albuterol Sulfate 3 ML AMPUL.NEB INHALATION ×4 (06:38→23:52)
[2017-03-15 07:55] LABS: Absolute Lymphocyte Count 1.23 X10^3/ul (0.83-4.51); Basophil# 0.03 X10^3/uL; Basophil% 0.2 % (0-1); Eosinophil# 0.05 X10^3/uL; Eosinophils% 0.3 % (0-5); Hematocrit 30.1 % (37-47); Hemoglobin 9.7 g/dl (12.0-15.0); Lymphocyte # 1.23 X10^3/ul (4.0); Lymphocyte % 7.9 % (19-41); Mean Corp Hgb Conc 32.2 g/gl (32-36); Mean Corpuscular Hgb 29.8 pg (27.0-32.0); Mean Corpuscular Volume 92.6 fL (81-99); Mean Platelet Vol. 10.9 fl (6.2-12.0); Monocyte# 0.85 X10^3/uL; Monocyte% 5.4 % (0-10); Neutrophil # 13.04 X10^3/uL (2.7-7.7); Neutrophil % 83.3 % (47-70); Platelet Count 195 K/mm3 (150-450); RBC Distribution Width SD 52.3 fl (35.1-43.9); Red Blood Count 3.25 M/mm3 (4.2-5.4); White Blood Count 15.7 K/mm3 (4.4-11.0)
[2017-03-15 08:00] LABS: Differential Indicated SCAN CRITERIA MET; POSITIVE COUNT YES; POSITIVE DIFFERENTIAL NO; POSITIVE MORPHOLOGY YES
[2017-03-15 08:24] LABS: Anion Gap 7 (5-15); BUN 4 mg/dL (7-18); BUN/Creat Ratio 8.7 RATIO (10-20); Calcium,Total 8.5 mg/dL (8.5-10.1); Chloride 108 mmol/L (98-107); Creatinine, Serum 0.46 mg/dL (0.55-1.02); EST Glomerular Filtration Rate 143 mL/min (>60); Est Glom Filt Rate - Afr Amer 173 mL/min (>60); Estimated Creatinine Clearance 38.68 ml/min; Glucose 110 mg/dL (70-110); Potassium 3.7 mmol/L (3.5-5.1); Sodium Level 141 mmol/L (136-145)
[2017-03-15] MEDS: guaiFENesin 1,200 MG Tablet 1200 MG PO ×2 (09:43→22:02)
[2017-03-15] MEDS: Loratadine 10 MG Tablet PO (09:43)
[2017-03-15] MEDS: Famotidine 20 MG Tablet PO ×2 (09:43→22:02)
[2017-03-15] MEDS: Enoxaparin 40 MG/0.4 ML Syringe SC (09:44)
[2017-03-15] MEDS: Ceftriaxone 1 GM/50 ML BAG IV (10:59)
--- NOTE | 2017-03-15 11:49 | PN_ITS ---
Patient Problems: Active and Suspected Problems (Last Reviewed 02/27/17 @ 11:10 by Bryanna Nieto) Pneumonia (Acute) Subjective: Patient is still has severe cough. Sore throat is better. Patient still gets short of breath on exertion. Vitals/I&O's: Vital Signs Temp Pulse Resp BP Pulse Ox 98.3 F 84 14 107/43 L 96 03/15/17 10:58 03/15/17 10:58 03/15/17 10:58 03/15/17 10:58 03/15/17 10:58 Oxygen Delivery Method Room Air Weight: 121 lb 11.123 oz Body Mass Index (BMI) 23.8 Intake and Output for Last 24 Hours 03/13/17 03/14/17 03/15/17 23:59 23:59 23:59 Intake Total 806 / 806 4209 / 4209 744 / 744 Balance 806 / 806 4209 / 4209 744 / 744 General: Alert, Oriented x3, Cooperative HEENT: Atraumatic, PERRLA, EOMI, Normocephalic Neck: Supple, No JVD, Negative Carotid Bruits Lungs: No rhonchi, No wheeze, Diminished - Air entry diminished in the left lung base., - Cardiovascular: Regular rate, Regular Rhythm, Normal S1, Normal S2, No murmurs Abdomen: Bowel Sounds Present, Soft, Non Tender, Non-Distended, No Hepato- splenomegaly Extremities: No edema, Capillary Refill Less than 3 Seconds Skin: No rashes, No breakdown Musculoskeletal: No Tenderness to Palpation of Joints or Extremities Neurological: Cranial nerves II-XII grossly intact Psych/Mental Status: Normal Affect, Appropriate Microbiology Past 72 Hours 03/13/17 04:15 Sputum, Expectorated/Coughed Gram Stain - Final 03/13/17 04:15 Sputum, Expectorated/Coughed Respiratory Culture - Final Mixed normal respiratory rosy. No Haemophilus, Streptococcus pneumoniae, beta-hemolytic Streptococcus or Staphylococcus aureus isolated. Laboratory Results 03/15/17 06:41: WBC 15.7 H, RBC 3.25 L, Hgb 9.7 L, Hct 30.1 L, MCV 92.6, MCH 29.8, MCHC 32.2, RDW 16.0 H, RDW Differential 52.3 H, Plt Count 195, MPV 10.9, Immature Gran % (Auto) 2.900 H, Neut % (Auto) 83.3 H, Lymph % (Auto) 7.9 L, [place] % (Auto) 5.4, Eos % (Auto) 0.3, Baso % (Auto) 0.2, Absolute Neuts (auto) 13.0 H, Absolute Lymphs (auto) 1.23, Total Counted Not Reportable, Diff Path Review June03/15/17 06:41: Sodium 141, Potassium 3.7, Chloride 108 H, Carbon Dioxide 26.0, Anion Gap 7, BUN 4 L, Creatinine 0.46 L, Estim Creat Clear Calc 38.68, Est GFR ( MDRD) Af Amer 173, Est GFR (MDRD) Non-Af 143, BUN/Creatinine Ratio 8.7 L, Glucose 110, Calcium 8.5 Current Medications Acetaminophen (Tylenol) 650 mg PO Q4H PRN PRN PRN Reason: FEVER Last Admin: 03/15/17 05:29 Dose: 650 mg Acetaminophen (Tylenol) 650 mg PO Q6H PRN PRN PRN Reason: Mild Pain (scale 0-3)/T>100.7 Al Hydroxide/Mg Hydroxide (Mylanta Ii) 30 ml PO Q6H PRN PRN PRN Reason: Gastric burning Albuterol Sulfate (Ventolin Aerosols) 2.5 mg INHALATION Q2H PRN PRN PRN Reason: SHORTNESS OF BREATH Albuterol/Ipratropium (Duoneb) 3 ml INHALATION Q4H.RT [facility] Alprazolam (Xanax) 0.5 mg PO BID PRN PRN PRN Reason: ANXIETY Artificial Tears (Tears Naturale, Artificial Tears) 2 drop EACH EYE Q1H PRN PRN PRN Reason: dry, itching eyes Diphenhydramine HCl (Benadryl) 25 mg PO TID PRN PRN PRN Reason: ITCHING Docusate Sodium (Colace) 100 mg PO BID PRN PRN PRN Reason: Constipation Enoxaparin Sodium (Lovenox) 40 mg SC DAILY@1000 [facility] Last Admin: 03/15/17 09:44 Dose: 40 mg Famotidine (Pepcid) 20 mg PO BID [facility] Last Admin: 03/15/17 09:43 Dose: 20 mg Guaifenesin (Mucinex) 1,200 mg PO BID [facility] Last Admin: 03/15/17 09:43 Dose: 1,200 mg Guaifenesin/Codeine Phosphate ([facility]itussin Ac) [facility] Ceftriaxone Sodium (Rocephin) 1 gm in 50 mls @ 100 mls/hr IV Q24 [facility] Last Admin: 03/15/17 10:59 Dose: 100 mls/hr Sodium Chloride () 250 mls @ 15 mls/hr IV .[id number] PRN PRN Reason: SALINE FLUSH Last Admin: 03/15/17 05:29 Dose: 15 mls/hr Ibuprofen (Motrin) 200 mg PO Q6H PRN PRN PRN Reason: PAIN Last Admin: 03/13/17 19:53 Dose: 200 mg Lidocaine HCl (Xylocaine Viscous) 5 ml PO Q3H PRN PRN Reason: severe throat pain Last Admin: 03/14/17 11:56 Dose: 5 ml Lidocaine/Prilocaine (Emla Cream W/Tegaderm) 5 gm TOPICAL DAILY PRN PRN PRN Reason: PAIN Loratadine (Claritin) 10 mg PO DAILY [facility] Last Admin: 03/15/17 09:43 Dose: 10 mg Magnesium Hydroxide (Milk Of Magnesia) 30 ml PO DAILY PRN PRN PRN Reason: Constipation Morphine Sulfate (Morphine) 2 - 4 mg IV Q3H PRN PRN PRN Reason: Severe Pain (pain scale 6-10) Morphine Sulfate (Morphine) 1 - 2 mg IV Q4H PRN PRN PRN Reason: Moderate Pain (pain scale 4-5) Ondansetron HCl (Zofran) 4 mg IV Q8H PRN PRN PRN Reason: NAUSEA Oxycodone HCl (Oxyir) 5 mg PO Q4H PRN PRN PRN Reason: Moderate Pain (pain scale 4-5) Last Admin: 03/14/17 03:40 Dose: 5 mg Promethazine HCl (Phenergan (Ll)) 12.5 mg IV Q6H PRN PRN PRN Reason: NAUSEA/VOMITING Sodium Chloride () 5 - 30 ml IV UD PRN PRN Reason: SALINE FLUSH Last Admin: 03/13/17 04:08 Dose: 10 ml Throat Lozenges (Cepacol Sore Throat Lozenge) 1 lozenge MUCOUS MEM Q2H PRN PRN PRN Reason: SORE THROAT Assessment/Plan Active and Suspected Problems (Last Reviewed 02/27/17 @ 11:10 by Bryanna Nieto) Pneumonia (Acute) The patient is a 67 y/o F w/ PMHx: Rheumatoid Arthritis, Chronic Back Pain, IBS , Anxiety and Depression, Invasive ductal carcinoma of right breast s/p mastectomy, ongoing chemotherapy (03/04/17 last chemotherapy) following w/ Dr. Esparza who presents to the [facility] ED on 03/13/17 w/ history of ongoing fever, chills, cough, dyspnea x 24 hours. (1) Acute Sepsis secondary to left lower lobe community Acquired Pneumonia: And is being admitted on the gated bed. CXR with hyperinflation, mild chronic appearing interstitial lung disease, new airspace disease left retrocardiac lung. Admission CBC w/ WBC 29.3, LA normal. Continue oxygen with wean as tolerated to room air, continue ATC duonebs, PRN albuterol, maintained on IV Rocephin and Azithromycin. Blood culture is negative so far. Urinary antigens are negative. Sputum culture grows normal respiratory rosy. Urine culture shows mixed gram-positive organisms, less than 1000 colonies per mL suggestive of contamination. Upper respiratory infection with sore throat: On supportive treatment with lozenges and lidocaine oral suspension. Patient is on Robitussin AC 5 mL every 4 hourly. (2) Invasive ductal carcinoma of right breast: Recent Dx, 10/2016 s/p mastectomy , ongoing chemotherapy w/ 03/04/17 last chemotherapy, following w/ Dr. Esparza. Dr. Gregory consult appreciated. Patient is right breast cancer stage IIa, T2 N0 M0, ER ND positive, HER-2 negative. She had right modified radical mastectomy and sentinel node biopsy in November 15, 2069. Started on adjuvant chemotherapy on December 2016. She received third cycle on March 04, 2017. She also received Neupogen. Leukocytosis with left shift: WBC count is improving. Patient is still has leukocytosis I think probably from Neupogen and possible sepsis from pneumonia (3) Rheumatoid Arthritis: Not on agent, likely secondary to ongoing chemotherapy , encourage frequent position changes, PRN pain regimen. (4) Chronic Back Pain: Encourage frequent position changes, PRN pain regimen. (5) IBS: Not on regimen, defer to outpatient. (6) Anxiety and Depression: Maintain on home xanax regimen. (7) Tobacco Abuse: Encouraged cessation, inpatient consultation per RT, nicotine patch. (8) DVT Prophylaxis: SCDs, lovenox. Anticipate discharge tomorrow a.m. This note was generated with [employer] dictation software. Every effort was made to ensure accuracy, however computerized mechanical insulator mistakes may persist. Code Visit Inpatient E&M: 58753 Subs Hosp L3
[2017-03-15] MEDS: guaiFENesin/Codeine 5 ML UDC PO ×3 (13:51→22:02)
[2017-03-15] MEDS: Calcium Carbonate 500 MG Tablet PO (20:50)
[2017-03-16] VITALS (11 sets, daily range): BP systolic 88–127; BP diastolic 45–60; PULSE 66–98; RESP 14–20; TEMP 36.4–37.1; O2SAT 92–98
[2017-03-16] MEDS: 0.9% NaCl IVPB Med Flush (250 mL) 15 ML IV ×2 (00:18→08:00)
[2017-03-16] MEDS: Ipratropium/Albuterol Sulfate 3 ML AMPUL.NEB INHALATION ×6 (03:15→23:05)
[2017-03-16] MEDS: guaiFENesin/Codeine 5 ML UDC PO ×5 (05:31→21:58)
[2017-03-16] MEDS: Docusate Sodium 100 MG Capsule PO ×2 (06:58→20:31)
[2017-03-16] MEDS: 0.9% Normal Saline 1,000 ML 250 ML IV ×2 (08:41→12:18)
[2017-03-16] MEDS: Loratadine 10 MG Tablet PO (08:52)
[2017-03-16] MEDS: Acetaminophen 325 MG Tablet 650 MG PO (08:52)
[2017-03-16] MEDS: Famotidine 20 MG Tablet PO ×2 (08:55→21:58)
--- NOTE | 2017-03-16 09:12 | PCM.PN.HOSP ---
Patient Problems: Active and Suspected Problems (Last Reviewed 02/27/17 @ 11:10 by Bryanna Nieto) Pneumonia (Acute) Subjective: Patient has hypotension, blood pressure 88/45's, 95/54 yesterday. No high-grade fever, T-max 99.8. No associated tachycardia. Patient complaint of severe throat pain mainly on the right angle of mandible than the left one. Patient grandson is sick and intubated in the other hospital most probably for URI Vitals/I&O's: Vital Signs Temp Pulse Resp BP Pulse Ox 98.3 F 68 18 106/60 95 03/16/17 08:26 03/16/17 08:26 03/16/17 08:26 03/16/17 08:26 03/16/17 08:26 Oxygen Delivery Method Room Air Weight: 121 lb 11.123 oz Body Mass Index (BMI) 23.8 Intake and Output for Last 24 Hours 03/14/17 03/15/17 03/16/17 23:59 23:59 23:59 Intake Total 4209 / 4209 2505 / 2505 114.3 / 114.3 Balance 4209 / 4209 2505 / 2505 114.3 / 114.3 General: Alert, Oriented x3, Cooperative HEENT: Atraumatic, PERRLA, EOMI, Normocephalic, - - On otoscopic exam, left TM is foggy, light reflex is damp in appearance suggestive of otitis media Right ear canal and tympanic membrane except mild wax appears okay. Good light reflex. Oral: - - Thrush present over the distal margin of soft palate, mainly on the right side Tenderness present over the right submandibular region/suprahyoid region Neck: Supple, No JVD, Negative Carotid Bruits Lungs: No rhonchi, No wheeze, No rales, Diminished - Left lung base Cardiovascular: Regular rate, No murmurs Abdomen: Bowel Sounds Present, Soft, Non Tender, Non-Distended Extremities: No edema, Capillary Refill Less than 3 Seconds Skin: No rashes, No breakdown Musculoskeletal: No Tenderness to Palpation of Joints or Extremities Neurological: Cranial nerves II-XII grossly intact Psych/Mental Status: Normal Affect, Appropriate Microbiology Past 72 Hours 03/13/17 04:15 Sputum, Expectorated/Coughed Gram Stain - Final 03/13/17 04:15 Sputum, Expectorated/Coughed Respiratory Culture - Final Mixed normal respiratory rosy. No Haemophilus, Streptococcus pneumoniae, beta-hemolytic Streptococcus or Staphylococcus aureus isolated. Current Medications Acetaminophen (Tylenol) 650 mg PO Q4H PRN PRN PRN Reason: FEVER Last Admin: 03/15/17 23:28 Dose: 650 mg Acetaminophen (Tylenol) 650 mg PO Q6H PRN PRN PRN Reason: Mild Pain (scale 0-3)/T>100.7 Last Admin: 03/16/17 08:52 Dose: 650 mg Al Hydroxide/Mg Hydroxide (Mylanta Ii) 30 ml PO Q6H PRN PRN PRN Reason: Gastric burning Albuterol Sulfate (Ventolin Aerosols) 2.5 mg INHALATION Q2H PRN PRN PRN Reason: SHORTNESS OF BREATH Albuterol/Ipratropium (Duoneb) 3 ml INHALATION Q4H.RT [facility] Last Admin: 03/16/17 06:42 Dose: 3 ml Alprazolam (Xanax) 0.5 mg PO BID PRN PRN PRN Reason: ANXIETY Artificial Tears (Tears Naturale, Artificial Tears) 2 drop EACH EYE Q1H PRN PRN PRN Reason: dry, itching eyes Calcium Carbonate (Tums) 500 mg PO Q6H PRN PRN PRN Reason: DYSPEPSIA Last Admin: 03/15/17 20:50 Dose: 500 mg Diphenhydramine HCl (Benadryl) 25 mg PO TID PRN PRN PRN Reason: ITCHING Docusate Sodium (Colace) 100 mg PO BID PRN PRN PRN Reason: Constipation Last Admin: 03/16/17 06:58 Dose: 100 mg Enoxaparin Sodium (Lovenox) 40 mg SC DAILY@1000 [facility] Last Admin: 03/15/17 09:44 Dose: 40 mg Famotidine (Pepcid) 20 mg PO BID [facility] Last Admin: 03/16/17 08:55 Dose: 20 mg Guaifenesin (Mucinex) 1,200 mg PO BID [facility] Last Admin: 03/16/17 08:57 Dose: Not Given Guaifenesin/Codeine Phosphate (Robitussin Ac) 5 ml PO Q4HWA [facility] Last Admin: 03/16/17 05:31 Dose: 5 ml Ceftriaxone Sodium (Rocephin) 1 gm in 50 mls @ 100 mls/hr IV Q24 [facility] Last Admin: 03/15/17 10:59 Dose: 100 mls/hr Sodium Chloride () 250 mls @ 15 mls/hr IV .[id number] PRN PRN Reason: SALINE FLUSH Last Admin: 03/16/17 00:18 Dose: 15 mls/hr Sodium Chloride () 1,000 mls @ 250 mls/hr IV .Q4H [facility] Stop: 03/16/17 15:49 Last Admin: 03/16/17 08:41 Dose: 250 mls/hr Sodium Chloride () 1,000 mls @ 100 mls/hr IV .Q10H [facility] Ibuprofen (Motrin) 200 mg PO Q6H PRN PRN PRN Reason: PAIN Last Admin: 03/13/17 19:53 Dose: 200 mg Lidocaine HCl (Xylocaine Viscous) 5 ml PO Q3H PRN PRN Reason: severe throat pain Last Admin: 03/14/17 11:56 Dose: 5 ml Lidocaine/Prilocaine (Emla Cream W/Tegaderm) 5 gm TOPICAL DAILY PRN PRN PRN Reason: PAIN Loratadine (Claritin) 10 mg PO DAILY [facility] Last Admin: 03/16/17 08:52 Dose: 10 mg Magnesium Hydroxide (Milk Of Magnesia) 30 ml PO DAILY PRN PRN PRN Reason: Constipation Morphine Sulfate (Morphine) 2 - 4 mg IV Q3H PRN PRN PRN Reason: Severe Pain (pain scale 6-10) Morphine Sulfate (Morphine) 1 - 2 mg IV Q4H PRN PRN PRN Reason: Moderate Pain (pain scale 4-5) Nystatin (Nystatin) 500,000 unit PO 4X/DAY [facility] Ondansetron HCl (Zofran) 4 mg IV Q8H PRN PRN PRN Reason: NAUSEA Oxycodone HCl (Oxyir) 5 mg PO Q4H PRN PRN PRN Reason: Moderate Pain (pain scale 4-5) Last Admin: 03/14/17 03:40 Dose: 5 mg Promethazine HCl (Phenergan (Ll)) 12.5 mg IV Q6H PRN PRN PRN Reason: NAUSEA/VOMITING Sodium Chloride () 5 - 30 ml IV UD PRN PRN Reason: SALINE FLUSH Last Admin: 03/13/17 04:08 Dose: 10 ml Throat Lozenges (Cepacol Sore Throat Lozenge) 1 lozenge MUCOUS MEM Q2H PRN PRN PRN Reason: SORE THROAT Assessment/Plan Active and Suspected Problems (Last Reviewed 02/27/17 @ 11:10 by Bryanna Nieto) Pneumonia (Acute) The patient is a 67 y/o F w/ PMHx: Rheumatoid Arthritis, Chronic Back Pain, IBS, Anxiety and Depression, Invasive ductal carcinoma of right breast s/p mastectomy, ongoing chemotherapy (03/04/17 last chemotherapy) following w/ Dr. Esparza who presents to the [facility] ED on 03/13/17 w/ history of ongoing fever, chills, cough, dyspnea x 24 hours. Patient had mild hypotension, low blood pressure the morning of 03/16/2017 which is responding with IV fluid normal saline (1) Acute severe sepsis secondary to left lower lobe community Acquired Pneumonia (tachycardia and mild hypotension) on admission: And is being admitted on the gated bed. CXR with hyperinflation, mild chronic appearing interstitial lung disease, new airspace disease left retrocardiac lung. Admission CBC w/ WBC 29.3, LA normal. Continue oxygen with wean as tolerated to room air, continue ATC duonebs, PRN albuterol, maintained on IV Rocephin and Azithromycin. Blood culture is negative so far. Urinary antigens are negative. Sputum culture grows normal respiratory rosy. Urine culture shows mixed gram-positive organisms, less than 1000 colonies per mL suggestive of contamination. Upper respiratory infection with sore throat and odynophagia, most probably with thrush: On supportive treatment with lozenges and lidocaine oral suspension. Patient is on Robitussin AC 5 mL every 4 hourly. Started on nystatin swish and swallow. ENT consult. Speech/swallow evaluation. (2) Invasive ductal carcinoma of right breast: Recent Dx, 10/2016 s/p mastectomy, ongoing chemotherapy w/ 03/04/17 last chemotherapy, following w/ Dr. Esparza. Dr. Gregory consult appreciated. Patient is right breast cancer stage IIa, T2 N0 M0, ER ND positive, HER-2 negative. She had right modified radical mastectomy and sentinel node biopsy in November 15, 2069. Started on adjuvant chemotherapy on December 2016. She received third cycle on March 04, 2017. She also received Neupogen. Leukocytosis with left shift: WBC count is improving. Patient is still has leukocytosis I think probably from Neupogen and possible sepsis from pneumonia (3) Rheumatoid Arthritis: Not on agent, likely secondary to ongoing chemotherapy, encourage frequent position changes, PRN pain regimen. (4) Chronic Back Pain: Encourage frequent position changes, PRN pain regimen. (5) IBS: Not on regimen, defer to outpatient. (6) Anxiety and Depression: Maintain on home xanax regimen. (7) Tobacco Abuse: Encouraged cessation, inpatient consultation per RT, nicotine patch. (8) DVT Prophylaxis: SCDs, lovenox. In view of severe throat point, odynophagia most probably due to URI, discharge is postponed. Anticipate discharge in 1-2 days when her throat symptoms gets better. This note was generated with [employer] dictation software. Every effort was made to ensure accuracy, however computerized olive packer mistakes may persist. Code Visit Inpatient E&M: 05623 Subs Hosp L3
--- NOTE | 2017-03-16 09:21 | PN_ITS ---
Patient Problems: Active and Suspected Problems (Last Reviewed 02/27/17 @ 11:10 by Bryanna Nieto) Pneumonia (Acute) Subjective: Patient has hypotension, blood pressure 88/45's, 95/54 yesterday. No high- grade fever, T-max 99.8. No associated tachycardia. Patient complaint of severe throat pain mainly on the right angle of mandible than the left one. Patient grandson is sick and intubated in the other hospital most probably for URI Vitals/I&O's: Vital Signs Temp Pulse Resp BP Pulse Ox 98.3 F 68 18 106/60 95 03/16/17 08:26 03/16/17 08:26 03/16/17 08:26 03/16/17 08:26 03/16/17 08:26 Oxygen Delivery Method Room Air Weight: 121 lb 11.123 oz Body Mass Index (BMI) 23.8 Intake and Output for Last 24 Hours 03/14/17 03/15/17 03/16/17 23:59 23:59 23:59 Intake Total 4209 / 4209 2505 / 2505 114.3 / 114.3 Balance 4209 / 4209 2505 / 2505 114.3 / 114.3 General: Alert, Oriented x3, Cooperative HEENT: Atraumatic, PERRLA, EOMI, Normocephalic, - - On otoscopic exam, left TM is foggy, light reflex is damp in appearance suggestive of otitis media Right ear canal and tympanic membrane except mild wax appears okay. Good light reflex. Oral: - - Thrush present over the distal margin of soft palate, mainly on the right side Tenderness present over the right submandibular region/suprahyoid region Neck: Supple, No JVD, Negative Carotid Bruits Lungs: No rhonchi, No wheeze, No rales, Diminished - Left lung base Cardiovascular: Regular rate, No murmurs Abdomen: Bowel Sounds Present, Soft, Non Tender, Non-Distended Extremities: No edema, Capillary Refill Less than 3 Seconds Skin: No rashes, No breakdown Musculoskeletal: No Tenderness to Palpation of Joints or Extremities Neurological: Cranial nerves II-XII grossly intact Psych/Mental Status: Normal Affect, Appropriate Microbiology Past 72 Hours 03/13/17 04:15 Sputum, Expectorated/Coughed Gram Stain - Final 03/13/17 04:15 Sputum, Expectorated/Coughed Respiratory Culture - Final Mixed normal respiratory rosy. No Haemophilus, Streptococcus pneumoniae, beta-hemolytic Streptococcus or Staphylococcus aureus isolated. Current Medications Acetaminophen (Tylenol) 650 mg PO Q4H PRN PRN PRN Reason: FEVER Last Admin: 03/15/17 23:28 Dose: 650 mg Acetaminophen (Tylenol) 650 mg PO Q6H PRN PRN PRN Reason: Mild Pain (scale 0-3)/T>100.7 Last Admin: 03/16/17 08:52 Dose: 650 mg Al Hydroxide/Mg Hydroxide (Mylanta Ii) 30 ml PO Q6H PRN PRN PRN Reason: Gastric burning Albuterol Sulfate (Ventolin Aerosols) 2.5 mg INHALATION Q2H PRN PRN PRN Reason: SHORTNESS OF BREATH Albuterol/Ipratropium (Duoneb) 3 ml INHALATION Q4H.RT [facility] Last Admin: 03/16/17 06:42 Dose: 3 ml Alprazolam (Xanax) 0.5 mg PO BID PRN PRN PRN Reason: ANXIETY Artificial Tears (Tears Naturale, Artificial Tears) 2 drop EACH EYE Q1H PRN PRN PRN Reason: dry, itching eyes Calcium Carbonate (Tums) 500 mg PO Q6H PRN PRN PRN Reason: DYSPEPSIA Last Admin: 03/15/17 20:50 Dose: 500 mg Diphenhydramine HCl (Benadryl) 25 mg PO TID PRN PRN PRN Reason: ITCHING Docusate Sodium (Colace) 100 mg PO BID PRN PRN PRN Reason: Constipation Last Admin: 03/16/17 06:58 Dose: 100 mg Enoxaparin Sodium (Lovenox) 40 mg SC DAILY@1000 [facility] Last Admin: 03/15/17 09:44 Dose: 40 mg Famotidine (Pepcid) 20 mg PO BID [facility] Last Admin: 03/16/17 08:55 Dose: 20 mg Guaifenesin (Mucinex) 1,200 mg PO BID [facility] Last Admin: 03/16/17 08:57 Dose: Not Given Guaifenesin/Codeine Phosphate (Robitussin Ac) 5 ml PO Q4HWA [facility] Last Admin: 03/16/17 05:31 Dose: 5 ml Ceftriaxone Sodium (Rocephin) 1 gm in 50 mls @ 100 mls/hr IV Q24 [facility] Last Admin: 03/15/17 10:59 Dose: 100 mls/hr Sodium Chloride () 250 mls @ 15 mls/hr IV .[id number] PRN PRN Reason: SALINE FLUSH Last Admin: 03/16/17 00:18 Dose: 15 mls/hr Sodium Chloride () 1,000 mls @ 250 mls/hr IV .Q4H [facility] Stop: 03/16/17 15:49 Last Admin: 03/16/17 08:41 Dose: 250 mls/hr Sodium Chloride () 1,000 mls @ 100 mls/hr IV .Q10H [facility] Ibuprofen (Motrin) 200 mg PO Q6H PRN PRN PRN Reason: PAIN Last Admin: 03/13/17 19:53 Dose: 200 mg Lidocaine HCl (Xylocaine Viscous) 5 ml PO Q3H PRN PRN Reason: severe throat pain Last Admin: 03/14/17 11:56 Dose: 5 ml Lidocaine/Prilocaine (Emla Cream W/Tegaderm) 5 gm TOPICAL DAILY PRN PRN PRN Reason: PAIN Loratadine (Claritin) 10 mg PO DAILY [facility] Last Admin: 03/16/17 08:52 Dose: 10 mg Magnesium Hydroxide (Milk Of Magnesia) 30 ml PO DAILY PRN PRN PRN Reason: Constipation Morphine Sulfate (Morphine) 2 - 4 mg IV Q3H PRN PRN PRN Reason: Severe Pain (pain scale 6-10) Morphine Sulfate (Morphine) 1 - 2 mg IV Q4H PRN PRN PRN Reason: Moderate Pain (pain scale 4-5) Nystatin (Nystatin) 500,000 unit PO 4X/DAY [facility] Ondansetron HCl (Zofran) 4 mg IV Q8H PRN PRN PRN Reason: NAUSEA Oxycodone HCl (Oxyir) 5 mg PO Q4H PRN PRN PRN Reason: Moderate Pain (pain scale 4-5) Last Admin: 03/14/17 03:40 Dose: 5 mg Promethazine HCl (Phenergan (Ll)) 12.5 mg IV Q6H PRN PRN PRN Reason: NAUSEA/VOMITING Sodium Chloride () 5 - 30 ml IV UD PRN PRN Reason: SALINE FLUSH Last Admin: 03/13/17 04:08 Dose: 10 ml Throat Lozenges (Cepacol Sore Throat Lozenge) 1 lozenge MUCOUS MEM Q2H PRN PRN PRN Reason: SORE THROAT Assessment/Plan Active and Suspected Problems (Last Reviewed 02/27/17 @ 11:10 by Bryanna Nieto) Pneumonia (Acute) The patient is a 67 y/o F w/ PMHx: Rheumatoid Arthritis, Chronic Back Pain, IBS , Anxiety and Depression, Invasive ductal carcinoma of right breast s/p mastectomy, ongoing chemotherapy (03/04/17 last chemotherapy) following w/ Dr. Esparza who presents to the [facility] ED on 03/13/17 w/ history of ongoing fever, chills, cough, dyspnea x 24 hours. Patient had mild hypotension, low blood pressure the morning of 03/16/2017 which is responding with IV fluid normal saline (1) Acute severe sepsis secondary to left lower lobe community Acquired Pneumonia (tachycardia and mild hypotension) on admission: And is being admitted on the gated bed. CXR with hyperinflation, mild chronic appearing interstitial lung disease, new airspace disease left retrocardiac lung. Admission CBC w/ WBC 29.3, LA normal. Continue oxygen with wean as tolerated to room air, continue ATC duonebs, PRN albuterol, maintained on IV Rocephin and Azithromycin. Blood culture is negative so far. Urinary antigens are negative. Sputum culture grows normal respiratory rosy. Urine culture shows mixed gram-positive organisms, less than 1000 colonies per mL suggestive of contamination. Upper respiratory infection with sore throat and odynophagia, most probably with thrush: On supportive treatment with lozenges and lidocaine oral suspension. Patient is on Robitussin AC 5 mL every 4 hourly. Started on nystatin swish and swallow. ENT consult. Speech/swallow evaluation. (2) Invasive ductal carcinoma of right breast: Recent Dx, 10/2016 s/p mastectomy , ongoing chemotherapy w/ 03/04/17 last chemotherapy, following w/ Dr. Esparza. Dr. Gregory consult appreciated. Patient is right breast cancer stage IIa, T2 N0 M0, ER GA positive, HER-2 negative. She had right modified radical mastectomy and sentinel node biopsy in November 15, 2069. Started on adjuvant chemotherapy on December 2016. She received third cycle on March 04, 2017. She also received Neupogen. Leukocytosis with left shift: WBC count is improving. Patient is still has leukocytosis I think probably from Neupogen and possible sepsis from pneumonia (3) Rheumatoid Arthritis: Not on agent, likely secondary to ongoing chemotherapy , encourage frequent position changes, PRN pain regimen. (4) Chronic Back Pain: Encourage frequent position changes, PRN pain regimen. (5) IBS: Not on regimen, defer to outpatient. (6) Anxiety and Depression: Maintain on home xanax regimen. (7) Tobacco Abuse: Encouraged cessation, inpatient consultation per RT, nicotine patch. (8) DVT Prophylaxis: SCDs, lovenox. In view of severe throat point, odynophagia most probably due to URI, discharge is postponed. Anticipate discharge in 1-2 days when her throat symptoms gets better. This note was generated with [employer] dictation software. Every effort was made to ensure accuracy, however computerized manager clinical pharmacy mistakes may persist. Code Visit Inpatient E&M: 37086 Subs Hosp L3
[2017-03-16 10:29] LABS: Lactic Acid 1.7 mmol/L (0.4-2.0)
[2017-03-16] MEDS: NYSTATIN 500,000 UNIT/5 ML UDC 500000 UNIT PO ×4 (10:53→21:58)
[2017-03-16] MEDS: Enoxaparin 40 MG/0.4 ML Syringe SC (10:53)
[2017-03-16] MEDS: Ibuprofen 200 MG Tablet PO ×2 (10:53→20:31)
[2017-03-16] MEDS: 0.9% Normal Saline 1,000 ML 100 ML IV ×2 (16:21→21:57)
[2017-03-16] MEDS: guaiFENesin 1,200 MG Tablet 1200 MG PO (21:58)
[2017-03-17] VITALS (8 sets, daily range): BP systolic 106–139; BP diastolic 57–76; PULSE 79–89; RESP 16–20; TEMP 36.8–36.9; O2SAT 94–96
[2017-03-17] MEDS: Ipratropium/Albuterol Sulfate 3 ML AMPUL.NEB INHALATION ×4 (03:33→22:23)
[2017-03-17] MEDS: guaiFENesin/Codeine 5 ML UDC PO ×5 (06:07→21:37)
[2017-03-17 06:49] LABS: Anion Gap 7 (5-15); BUN 8 mg/dL (7-18); Calcium,Total 8.1 mg/dL (8.5-10.1); Chloride 110 mmol/L (98-107); Creatinine, Serum 0.47 mg/dL (0.55-1.02); EST Glomerular Filtration Rate 140 mL/min (>60); Est Glom Filt Rate - Afr Amer 169 mL/min (>60); Estimated Creatinine Clearance 38.68 ml/min; Glucose 87 mg/dL (70-110); Potassium 3.8 mmol/L (3.5-5.1); Sodium Level 142 mmol/L (136-145)
[2017-03-17 06:54] LABS: Absolute Lymphocyte Count 0.85 X10^3/ul (0.83-4.51); Absolute Neutrophil Count 7.4 X10^3/uL (2.0-7.7); Basophil# 0.03 X10^3/uL; Basophil% 0.3 % (0-1); Eosinophil# 0.03 X10^3/uL; Eosinophils% 0.3 % (0-5); Hematocrit 27.8 % (37-47); Lymphocyte # 0.85 X10^3/ul (4.0); Lymphocyte % 9.4 % (19-41); Mean Corp Hgb Conc 32.4 g/gl (32-36); Mean Corpuscular Hgb 30.1 pg (27.0-32.0); Mean Platelet Vol. 10.5 fl (6.2-12.0); Monocyte% 5.5 % (0-10); Neutrophil # 7.42 X10^3/uL (2.7-7.7); Neutrophil % 82.5 % (47-70); Platelet Count 159 K/mm3 (150-450); RBC Distribution Width CV 15.5 % (11.6-14.6); RBC Distribution Width SD 50.4 fl (35.1-43.9); Red Blood Count 2.99 M/mm3 (4.2-5.4)
[2017-03-17 07:13] LABS: POSITIVE COUNT NO; POSITIVE DIFFERENTIAL NO; POSITIVE MORPHOLOGY NO
[2017-03-17] MEDS: Magnesium Hydroxide 30 ML UDC PO (07:34)
[2017-03-17] MEDS: Docusate Sodium 100 MG Capsule PO (07:34)
[2017-03-17] MEDS: Acetaminophen 325 MG Tablet 650 MG PO ×3 (07:37→21:37)
[2017-03-17] MEDS: 0.9% Normal Saline 1,000 ML 100 ML IV ×2 (07:40→17:29)
--- NOTE | 2017-03-17 08:23 | CON.PCM_ITS ---
Problem List (1) Sore throat Status: Acute Reason for Consult Date of Consultation: 03/17/17 Reason for Consultation: sore throat x 3 days History of Present Illness: The patient is a 67 year old F who is admitted for pneumonia. She reports development of sore throat and dysphagia 3 days ago. Initially this also had hoarse voice, but this has improved. She denies intolerance of oral intake or significant shortness of breath other than that from her pneumonia. She reports that nothing has helped much, but did get some Nystatin. She denies prior episodes, other than that of childhood illness. She denies sick contacts with similar symptoms. The sore throat has improved somewhat since its onset and she is no longer hoarse. Her pain radiates to the ears with swallowing, but she denies hearing loss, and has had trouble with the right ear since a traumatic cerumen removal many years ago. She denies discharge from the ear, nose, or throat. She does wear dentures.[] Past Medical History Past Medical History (Chronic Problems): Chronic Problems (Last Reviewed 02/27/17 @ 11:10 by Bryanna Nieto) Chronic back pain (Chronic) IBS (irritable bowel syndrome) (Chronic) GERD (gastroesophageal reflux disease) (Chronic) Rheumatoid arthritis (Chronic) Anxiety and depression (Chronic) Invasive ductal carcinoma of right breast (Chronic) Patient complains of pain all over body area as well as in her chest did give her her Percocet 5/325#15 but states she would have to get any additional pain meds from oncology if she needed more for pain due to chemo. Allergies Antihistamines - Alkylamine Allergy (Verified 03/12/17 22:03) TACHYCARDIA Antihistamines - Ethanolamine Allergy (Verified 03/12/17 22:03) TACHYCARDIA Antihistamines - Ethylenediamine Allergy (Verified 03/12/17 22:03) TACHYCARDIA Antihistamines - Piperazine Allergy (Verified 03/12/17 22:03) TACHYCARDIA Antihistamines - Piperidine Allergy (Verified 03/12/17 22:03) TACHYCARDIA diphenhydramine [From Benadryl] Allergy (Verified 03/12/17 22:03) TACHYCARDIA Home Medications: Ambulatory Orders Medication Instructions Recorded ALPRAZolam [Xanax] 0.5 mg PO BID PRN PRN #30 11/17/16 Lidocaine/Prilocaine 2.5 % TP DAILY PRN 01/21/17 [Lidocaine-Prilocaine Cream] Omeprazole 20 mg PO DAILY 02/11/17 Ibuprofen [Ibuprofen Ib] 200 mg PO Q6H PRN PRN 02/27/17 Acetaminophen [Tylenol Extra 500 mg PO Q6H PRN PRN 03/12/17 Strength] Loratadine [Claritin] 10 mg PO DAILY 03/12/17 Surgical History: - - R mastectomy, port placement, , appendectomy, cholecystectomy, lymph node dissection R axilla, L TKR. Psychiatric History: Anxiety, Depression [employer] History: No pertinent [employer] history Lives: Spouse/ Significant Other Smoking Status: Light Smoker (<10/day) Tobacco Use: Cigarettes Alcohol: None Drugs: None - *Family History Maternal Family History: Family History (Last Reviewed 02/27/17 @ 11:10 by Bryanna Nieto) Mother Heart disease Diabetes Arthritis Father Heart disease History Items: - - Maternal family history of arthritis, heart disease, diabetes. Paternal Family History: Family History (Last Reviewed 02/27/17 @ 11:10 by Bryanna Nieto) Mother Heart disease Diabetes Arthritis Father Heart disease History Items: - - Paternal family history of heart disease. Review of Systems HEENT: Reports: Ear Pain, Sore Throat Musculoskeletal: Reports: Neck Pain Patient Problems: Active and Suspected Problems (Last Reviewed 02/27/17 @ 11:10 by Bryanna Nieto) Pneumonia (Acute) Sore throat (Acute) - Physical Exam General: Alert, Oriented x3, Cooperative, No apparent distress HEENT: Atraumatic, PERRLA, EOMI, Normocephalic, TM's Clear, - - ear canals clear Oral: Dry Mucosa, - - dentures, mild erythema of soft palate, no edema or exudates Neck: Supple, No Nodes, No Nuchal Rigidity, Trachea Midline, Thyroid Normal Size and Texture, - - tender lateral to SCM bilaterally Lungs: Diminished Cardiovascular: Regular rate, Regular Rhythm Extremities: No clubbing, No cyanosis Skin: No rashes Lymphatic: No Cervical, Supraclavicular, or Inguinal Adenopathy Neurological: Cranial nerves II-XII grossly intact Psych/Mental Status: Normal Affect, Appropriate, Alert and oriented to time, place, person, mood and affect Vital Signs Temp Pulse Resp BP Pulse Ox 98.4 F 82 18 122/71 H 95 03/17/17 07:30 03/17/17 07:30 03/17/17 07:30 03/17/17 07:30 03/17/17 07:30 Oxygen Delivery Method Room Air Weight: 55.2 kg Body Mass Index (BMI) 23.8 Intake and Output for Last 24 Hours 03/15/17 03/16/17 03/17/17 23:59 23:59 23:59 Intake Total 2505 / 2505 3035.3 / 3035.3 1897 Balance 2505 / 2505 3035.3 / 3035.3 1897 Microbiology Past 72 Hours 03/16/17 11:50 Group A Streptococcus Rapid Screen - Preliminary Mucosa - Throat 03/13/17 04:15 Gram Stain - Final Sputum, Expectorated/Coughed Respiratory Culture - Final Mixed normal respiratory rosy. No Haemophilus, Streptococcus pneumoniae, beta-hemolytic Streptococcus or Staphylococcus aureus isolated. Laboratory Tests Past 24 Hrs 03/16/17 03/17/17 03/17/17 09:47 06:08 06:08 WBC 9.0 RBC 2.99 L Hgb 9.0 L Hct 27.8 L MCV 93.0 MCH 30.1 MCHC 32.4 RDW 15.5 H RDW Differential 50.4 H Plt Count 159 MPV 10.5 Immature Gran % (Auto) 2.000 H Neut % (Auto) 82.5 H Lymph % (Auto) 9.4 L [place] % (Auto) 5.5 Eos % (Auto) 0.3 Baso % (Auto) 0.3 Absolute Neuts (auto) 7.4 Absolute Lymphs (auto) 0.85 Total Counted Not Reportable Diff Path Review June Sodium 142 Potassium 3.8 Chloride 110 H Carbon Dioxide 25.0 Anion Gap 7 BUN 8 Creatinine 0.47 L Estim Creat Clear Calc 38.68 Est GFR (MDRD) Af Amer 169 Est GFR (MDRD) Non-Af 140 BUN/Creatinine Ratio 17.0 Glucose 87 Lactic Acid 1.7 Calcium 8.1 L Assessment/Plan Active and Suspected Problems (Last Reviewed 02/27/17 @ 11:10 by Bryanna Nieto) Pneumonia (Acute) Sore throat (Acute) Patient with acute sore throat in setting of pneumonia treatment. Acute infectious process suspected with fungal overgrowth likely in the setting of antibiotic, dry oral mucosa, and denture use. I see no acute ear disease or suspicious adenopathy of the neck. Coverage fo fungal infection is advised with Diflucan given incomplete resolution with Nystatin. Ear complaints may be followed as an outpatient if continue given chronic history.
[2017-03-17] MEDS: Loratadine 10 MG Tablet PO (08:53)
[2017-03-17] MEDS: NYSTATIN 500,000 UNIT/5 ML UDC 500000 UNIT PO ×4 (08:53→21:37)
[2017-03-17] MEDS: guaiFENesin 1,200 MG Tablet 1200 MG PO ×2 (08:53→21:37)
[2017-03-17] MEDS: Famotidine 20 MG Tablet PO ×2 (08:56→21:39)
[2017-03-17] MEDS: Fluconazole 100 MG Tablet 200 MG PO (09:46)
[2017-03-17] MEDS: Enoxaparin 40 MG/0.4 ML Syringe SC (09:47)
--- NOTE | 2017-03-17 10:45 | PCM.PN.HOSP ---
Patient Problems: Active and Suspected Problems (Last Reviewed 02/27/17 @ 11:10 by Bryanna Nieto) Pneumonia (Acute) Sore throat (Acute) Subjective: Patient was seen and examined. Complains of sore throat, difficulty swallowing. Appreciate ENT consult, noted addition of Diflucan. Denies any fever or chills. Complains of fatigue and is unwilling to be discharged today. Vitals/I&O's: Vital Signs Temp Pulse Resp BP Pulse Ox 98.4 F 82 18 122/71 H 95 03/17/17 07:30 03/17/17 07:30 03/17/17 07:30 03/17/17 07:30 03/17/17 07:30 Oxygen Delivery Method Room Air Weight: 55.2 kg Body Mass Index (BMI) 23.8 Intake and Output for Last 24 Hours 03/15/17 03/16/17 03/17/17 23:59 23:59 23:59 Intake Total 2505 / 2505 3035.3 / 3035.3 1897 / 1898 Balance 2505 / 2505 3035.3 / 3035.3 1897 General: Alert, Oriented x3, Cooperative, No apparent distress HEENT: Atraumatic, PERRLA, EOMI, Normocephalic Oral: Moist Mucosa, - - No oral thrush or exudate seen or edema Neck: Supple, - - Multiple anterior cervical lymph nodes with tenderness on palpation Lungs: Clear to auscultation, Normal air movement Cardiovascular: Regular rate, Regular Rhythm, Normal S1, Normal S2, No murmurs Abdomen: Bowel Sounds Present, Soft, Non Tender, Non-Distended, No Hepato-splenomegaly Extremities: No edema Skin: No rashes Musculoskeletal: No Tenderness to Palpation of Joints or Extremities Neurological: Cranial nerves II-XII grossly intact Psych/Mental Status: Normal Affect, Appropriate Microbiology Past 72 Hours 03/16/17 11:50 Mucosa - Throat Group A Streptococcus Rapid Screen - Preliminary 03/13/17 04:15 Sputum, Expectorated/Coughed Gram Stain - Final 03/13/17 04:15 Sputum, Expectorated/Coughed Respiratory Culture - Final Mixed normal respiratory rosy. No Haemophilus, Streptococcus pneumoniae, beta-hemolytic Streptococcus or Staphylococcus aureus isolated. Laboratory Results 03/17/17 06:08: WBC 9.0, RBC 2.99 L, Hgb 9.0 L, Hct 27.8 L, MCV 93.0, MCH 30.1, MCHC 32.4, RDW 15.5 H, RDW Differential 50.4 H, Plt Count 159, MPV 10.5, Immature Gran % (Auto) 2.000 H, Neut % (Auto) 82.5 H, Lymph % (Auto) 9.4 L, [place] % (Auto) 5.5, Eos % (Auto) 0.3, Baso % (Auto) 0.3, Absolute Neuts (auto) 7.4, Absolute Lymphs (auto) 0.85, Total Counted Not Reportable, Diff Path Review June03/17/17 06:08: Sodium 142, Potassium 3.8, Chloride 110 H, Carbon Dioxide 25.0, Anion Gap 7, BUN 8, Creatinine 0.47 L, Estim Creat Clear Calc 38.68, Est GFR (MDRD) Af Amer 169, Est GFR (MDRD) Non-Af 140, BUN/Creatinine Ratio 17.0, Glucose 87, Calcium 8.1 L Current Medications Acetaminophen (Tylenol) 650 mg PO Q4H PRN PRN PRN Reason: FEVER Last Admin: 03/15/17 23:28 Dose: 650 mg Acetaminophen (Tylenol) 650 mg PO Q6H PRN PRN PRN Reason: Mild Pain (scale 0-3)/T>100.7 Last Admin: 03/17/17 07:37 Dose: 650 mg Al Hydroxide/Mg Hydroxide (Mylanta Ii) 30 ml PO Q6H PRN PRN PRN Reason: Gastric burning Albuterol Sulfate (Ventolin Aerosols) 2.5 mg INHALATION Q2H PRN PRN PRN Reason: SHORTNESS OF BREATH Albuterol/Ipratropium (Duoneb) 3 ml INHALATION Q4H.RT [facility] Last Admin: 03/17/17 07:24 Dose: 3 ml Alprazolam (Xanax) 0.5 mg PO BID PRN PRN PRN Reason: ANXIETY Artificial Tears (Tears Naturale, Artificial Tears) 2 drop EACH EYE Q1H PRN PRN PRN Reason: dry, itching eyes Calcium Carbonate (Tums) 500 mg PO Q6H PRN PRN PRN Reason: DYSPEPSIA Last Admin: 03/15/17 20:50 Dose: 500 mg Diphenhydramine HCl (Benadryl) 25 mg PO TID PRN PRN PRN Reason: ITCHING Docusate Sodium (Colace) 100 mg PO BID PRN PRN PRN Reason: Constipation Last Admin: 03/17/17 07:34 Dose: 100 mg Enoxaparin Sodium (Lovenox) 40 mg SC DAILY@1000 [facility] Last Admin: 03/17/17 09:47 Dose: 40 mg Famotidine (Pepcid) 20 mg PO BID [facility] Last Admin: 03/17/17 08:56 Dose: 20 mg Fluconazole (Diflucan) 100 mg PO DAILY [facility] Stop: 03/31/17 23:59 Guaifenesin (Mucinex) 1,200 mg PO BID [facility] Last Admin: 03/17/17 08:53 Dose: 1,200 mg Guaifenesin/Codeine [facility]ate ([facility]) [facility] Last Admin: 03/17/17 08:56 Dose: 5 ml Sodium Chloride () 1,000 mls @ 100 mls/hr IV .Q10H [facility] Last Admin: 03/17/17 07:40 Dose: 100 mls/hr Piperacillin Sod/Tazobactam (Sod 3.375 gm/ Sodium Chloride) 50 mls @ 12.5 mls/hr IV Q8 [facility] Last Admin: 03/17/17 06:07 Dose: 12.5 mls/hr Sodium Chloride () 250 mls @ 15 mls/hr IV .[id number] PRN PRN Reason: SALINE FLUSH Ibuprofen (Motrin) 200 mg PO Q6H PRN PRN PRN Reason: PAIN Last Admin: 03/16/17 20:31 Dose: 200 mg Lactobacillus Acidophilus (Acidophilus) 1 tablet PO TID [facility] Last Admin: 03/17/17 06:07 Dose: 1 tablet Lidocaine HCl (Xylocaine Viscous) 5 ml PO Q3H PRN PRN Reason: severe throat pain Last Admin: 03/14/17 11:56 Dose: 5 ml Lidocaine/Prilocaine (Emla Cream W/Tegaderm) 5 gm TOPICAL DAILY PRN PRN PRN Reason: PAIN Loratadine (Claritin) 10 mg PO DAILY [facility] Last Admin: 03/17/17 08:53 Dose: 10 mg Magnesium Hydroxide (Milk Of Magnesia) 30 ml PO DAILY PRN PRN PRN Reason: Constipation Last Admin: 03/17/17 07:34 Dose: 30 ml Morphine Sulfate (Morphine) 2 - 4 mg IV Q3H PRN PRN PRN Reason: Severe Pain (pain scale 6-10) Morphine Sulfate (Morphine) 1 - 2 mg IV Q4H PRN PRN PRN Reason: Moderate Pain (pain scale 4-5) Nystatin (Nystatin) 500,000 unit PO 4X/DAY [facility] Last Admin: 03/17/17 08:53 Dose: 500,000 unit Ondansetron HCl (Zofran) 4 mg IV Q8H PRN PRN PRN Reason: NAUSEA Oxycodone HCl (Oxyir) 5 mg PO Q4H PRN PRN PRN Reason: Moderate Pain (pain scale 4-5) Last Admin: 03/14/17 03:40 Dose: 5 mg Promethazine HCl (Phenergan (Ll)) 12.5 mg IV Q6H PRN PRN PRN Reason: NAUSEA/VOMITING Sodium Chloride () 5 - 30 ml IV UD PRN PRN Reason: SALINE FLUSH Last Admin: 03/13/17 04:08 Dose: 10 ml Throat Lozenges (Cepacol Sore Throat Lozenge) 1 lozenge MUCOUS MEM Q2H PRN PRN PRN Reason: SORE THROAT Assessment/Plan Active and Suspected Problems (Last Reviewed 02/27/17 @ 11:10 by Bryanna Nieto) Pneumonia (Acute) Sore throat (Acute) 67 y/o female with Invasive ductal carcinoma of right breast s/p mastectomy, ongoing chemotherapy, 03/04/17 last chemotherapy, following with Dr. Esparza admitted through the ED 03/13/17 with history of ongoing fever, chills, cough, dyspnea x 24 hours. Written chest x-ray was suggestive of left retrocardiac pneumonia. 1. Acute severe sepsis secondary to left lower lobe community acquired Pneumonia, patient's vitals have remained stable, no fevers seen, white cell count has improved, remains at 9.0 this morning, blood cultures ?48 hours have been negative, urine streptococcal and Legionella antigens are negative. Remains on IV Zosyn since yesterday on account of relative hypotension, will continue on Zosyn for 24 hours, if patient continues to remain stable will de-escalate from IV Zosyn 2. Odynophagia, likely related to oropharyngeal candidiasis, status post nystatin swish and swallow, appreciate ENT consult, continue with Diflucan addition, will continue with supportive treatment with lozenges and lidocaine oral suspension 3. Invasive ductal carcinoma of right breast s/p mastectomy, ongoing chemotherapy, last chemotherapy on 03/04/2017, following Dr. Esparza. 4. Rheumatoid Arthritis. 5.Chronic Back Pain, on NSAIDs, oxycodone and as needed morphine 6. IBS: Not on regimen, defer to outpatient. 7. Anxiety and Depression, as needed Xanax 8. Tobacco Abuse: Encouraged cessation, inpatient consultation per RT, nicotine patch. 9. DVT Prophylaxis: SCDs, lovenox. 10. Disposition: Possible discharge in a.m. if patient continues to be stable Code Visit Inpatient E&M: 66119 Subs Hosp L2
[2017-03-17 10:48] LABS: Pathologist Review Reviewed
[2017-03-17 10:49] LABS: Pathologist Review Reviewed
--- NOTE | 2017-03-17 10:57 | PN_ITS ---
Patient Problems: Active and Suspected Problems (Last Reviewed 02/27/17 @ 11:10 by Bryanna Nieto) Pneumonia (Acute) Sore throat (Acute) Subjective: Patient was seen and examined. Complains of sore throat, difficulty swallowing. Appreciate ENT consult, noted addition of Diflucan. Denies any fever or chills. Complains of fatigue and is unwilling to be discharged today. Vitals/I&O's: Vital Signs Temp Pulse Resp BP Pulse Ox 98.4 F 82 18 122/71 H 95 03/17/17 07:30 03/17/17 07:30 03/17/17 07:30 03/17/17 07:30 03/17/17 07:30 Oxygen Delivery Method Room Air Weight: 55.2 kg Body Mass Index (BMI) 23.8 Intake and Output for Last 24 Hours 03/15/17 03/16/17 03/17/17 23:59 23:59 23:59 Intake Total 2505 / 2505 3035.3 / 3035.3 1897 / 1898 Balance 2505 / 2505 3035.3 / 3035.3 1897 General: Alert, Oriented x3, Cooperative, No apparent distress HEENT: Atraumatic, PERRLA, EOMI, Normocephalic Oral: Moist Mucosa, - - No oral thrush or exudate seen or edema Neck: Supple, - - Multiple anterior cervical lymph nodes with tenderness on palpation Lungs: Clear to auscultation, Normal air movement Cardiovascular: Regular rate, Regular Rhythm, Normal S1, Normal S2, No murmurs Abdomen: Bowel Sounds Present, Soft, Non Tender, Non-Distended, No Hepato- splenomegaly Extremities: No edema Skin: No rashes Musculoskeletal: No Tenderness to Palpation of Joints or Extremities Neurological: Cranial nerves II-XII grossly intact Psych/Mental Status: Normal Affect, Appropriate Microbiology Past 72 Hours 03/16/17 11:50 Mucosa - Throat Group A Streptococcus Rapid Screen - Preliminary 03/13/17 04:15 Sputum, Expectorated/Coughed Gram Stain - Final 03/13/17 04:15 Sputum, Expectorated/Coughed Respiratory Culture - Final Mixed normal respiratory rosy. No Haemophilus, Streptococcus pneumoniae, beta-hemolytic Streptococcus or Staphylococcus aureus isolated. Laboratory Results 03/17/17 06:08: WBC 9.0, RBC 2.99 L, Hgb 9.0 L, Hct 27.8 L, MCV 93.0, MCH 30.1, MCHC 32.4, RDW 15.5 H, RDW Differential 50.4 H, Plt Count 159, MPV 10.5, Immature Gran % (Auto) 2.000 H, Neut % (Auto) 82.5 H, Lymph % (Auto) 9.4 L, Mcdonald % (Auto) 5.5, Eos % (Auto) 0.3, Baso % (Auto) 0.3, Absolute Neuts (auto) 7.4, Absolute Lymphs (auto) 0.85, Total Counted Not Reportable, Diff Path Review June03/17/17 06:08: Sodium 142, Potassium 3.8, Chloride 110 H, Carbon Dioxide 25.0, Anion Gap 7, BUN 8, Creatinine 0.47 L, Estim Creat Clear Calc 38.68, Est GFR ( MDRD) Af Amer 169, Est GFR (MDRD) Non-Af 140, BUN/Creatinine Ratio 17.0, Glucose 87, Calcium 8.1 L Current Medications Acetaminophen (Tylenol) 650 mg PO Q4H PRN PRN PRN Reason: FEVER Last Admin: 03/15/17 23:28 Dose: 650 mg Acetaminophen (Tylenol) 650 mg PO Q6H PRN PRN PRN Reason: Mild Pain (scale 0-3)/T>100.7 Last Admin: 03/17/17 07:37 Dose: 650 mg Al Hydroxide/Mg Hydroxide (Mylanta Ii) 30 ml PO Q6H PRN PRN PRN Reason: Gastric burning Albuterol Sulfate (Ventolin Aerosols) 2.5 mg INHALATION Q2H PRN PRN PRN Reason: SHORTNESS OF BREATH Albuterol/Ipratropium (Duoneb) 3 ml INHALATION Q4H.RT CELINE Last Admin: 03/17/17 07:24 Dose: 3 ml Alprazolam (Xanax) 0.5 mg PO BID PRN PRN PRN Reason: ANXIETY Artificial Tears (Tears Naturale, Artificial Tears) 2 drop EACH EYE Q1H PRN PRN PRN Reason: dry, itching eyes Calcium Carbonate (Tums) 500 mg PO Q6H PRN PRN PRN Reason: DYSPEPSIA Last Admin: 03/15/17 20:50 Dose: 500 mg Diphenhydramine HCl (Benadryl) 25 mg PO TID PRN PRN PRN Reason: ITCHING Docusate Sodium (Colace) 100 mg PO BID PRN PRN PRN Reason: Constipation Last Admin: 03/17/17 07:34 Dose: 100 mg Enoxaparin Sodium (Lovenox) 40 mg SC DAILY@1000 [facility] Last Admin: 03/17/17 09:47 Dose: 40 mg Famotidine (Pepcid) 20 mg PO BID [facility] Last Admin: 03/17/17 08:56 Dose: 20 mg Fluconazole (Diflucan) 100 mg PO DAILY [facility] Stop: 03/31/17 23:59 Guaifenesin (Mucinex) 1,200 mg PO BID [facility] Last Admin: 03/17/17 08:53 Dose: 1,200 mg Guaifenesin/Codeine Phosphate ([facility]ussin [facility]) [facility] Last Admin: 03/17/17 08:56 Dose: 5 ml Sodium Chloride () 1,000 mls @ 100 mls/hr IV .Q10H [facility] Last Admin: 03/17/17 07:40 Dose: 100 mls/hr Piperacillin Sod/Tazobactam (Sod 3.375 gm/ Sodium Chloride) 50 mls @ 12.5 mls/ hr IV Q8 [facility] Last Admin: 03/17/17 06:07 Dose: 12.5 mls/hr Sodium Chloride () 250 mls @ 15 mls/hr IV .[id number] PRN PRN Reason: SALINE FLUSH Ibuprofen (Motrin) 200 mg PO Q6H PRN PRN PRN Reason: PAIN Last Admin: 03/16/17 20:31 Dose: 200 mg Lactobacillus Acidophilus (Acidophilus) 1 tablet PO TID [facility] Last Admin: 03/17/17 06:07 Dose: 1 tablet Lidocaine HCl (Xylocaine Viscous) 5 ml PO Q3H PRN PRN Reason: severe throat pain Last Admin: 03/14/17 11:56 Dose: 5 ml Lidocaine/Prilocaine (Emla Cream W/Tegaderm) 5 gm TOPICAL DAILY PRN PRN PRN Reason: PAIN Loratadine (Claritin) 10 mg PO DAILY [facility] Last Admin: 03/17/17 08:53 Dose: 10 mg Magnesium Hydroxide (Milk Of Magnesia) 30 ml PO DAILY PRN PRN PRN Reason: Constipation Last Admin: 03/17/17 07:34 Dose: 30 ml Morphine Sulfate (Morphine) 2 - 4 mg IV Q3H PRN PRN PRN Reason: Severe Pain (pain scale 6-10) Morphine Sulfate (Morphine) 1 - 2 mg IV Q4H PRN PRN PRN Reason: Moderate Pain (pain scale 4-5) Nystatin (Nystatin) 500,000 unit PO 4X/DAY CELINE Last Admin: 03/17/17 08:53 Dose: 500,000 unit Ondansetron HCl (Zofran) 4 mg IV Q8H PRN PRN PRN Reason: NAUSEA Oxycodone HCl (Oxyir) 5 mg PO Q4H PRN PRN PRN Reason: Moderate Pain (pain scale 4-5) Last Admin: 03/14/17 03:40 Dose: 5 mg Promethazine HCl (Phenergan (Ll)) 12.5 mg IV Q6H PRN PRN PRN Reason: NAUSEA/VOMITING Sodium Chloride () 5 - 30 ml IV UD PRN PRN Reason: SALINE FLUSH Last Admin: 03/13/17 04:08 Dose: 10 ml Throat Lozenges (Cepacol Sore Throat Lozenge) 1 lozenge MUCOUS MEM Q2H PRN PRN PRN Reason: SORE THROAT Assessment/Plan Active and Suspected Problems (Last Reviewed 02/27/17 @ 11:10 by Bryanna Nieto) Pneumonia (Acute) Sore throat (Acute) 67 y/o female with Invasive ductal carcinoma of right breast s/p mastectomy, ongoing chemotherapy, 03/04/17 last chemotherapy, following with Dr. Esparza admitted through the ED 03/13/17 with history of ongoing fever, chills, cough, dyspnea x 24 hours. Written chest x-ray was suggestive of left retrocardiac pneumonia. 1. Acute severe sepsis secondary to left lower lobe community acquired Pneumonia , patient's vitals have remained stable, no fevers seen, white cell count has improved, remains at 9.0 this morning, blood cultures ?48 hours have been negative, urine streptococcal and Legionella antigens are negative. Remains on IV Zosyn since yesterday on account of relative hypotension, will continue on Zosyn for 24 hours, if patient continues to remain stable will de- escalate from IV Zosyn 2. Odynophagia, likely related to oropharyngeal candidiasis, status post nystatin swish and swallow, appreciate ENT consult, continue with Diflucan addition, will continue with supportive treatment with lozenges and lidocaine oral suspension 3. Invasive ductal carcinoma of right breast s/p mastectomy, ongoing chemotherapy, last chemotherapy on 03/04/2017, following Dr. Esparza. 4. Rheumatoid Arthritis. 5.Chronic Back Pain, on NSAIDs, oxycodone and as needed morphine 6. IBS: Not on regimen, defer to outpatient. 7. Anxiety and Depression, as needed Xanax 8. Tobacco Abuse: Encouraged cessation, inpatient consultation per RT, nicotine patch. 9. DVT Prophylaxis: SCDs, lovenox. 10. Disposition: Possible discharge in a.m. if patient continues to be stable Code Visit Inpatient E&M: 23084 Subs Hosp L2
--- NOTE | 2017-03-17 11:41 | PCM.PROGNOTE ---
Patient Problems: Active and Suspected Problems (Last Reviewed 02/27/17 @ 11:10 by Bryanna Nieto) Pneumonia (Acute) Sore throat (Acute) Subjective: 67-year-old woman was diagnosed with right breast cancer stage IIa) T2 and 0M0, ER MT positive HER-2 negative. Tumor size 2.5 cm sentinel node negative. Oncotype DX score 34. She had right modified radical mastectomy and sentinel node biopsy on November 15, 2016. Began adjuvant therapy with Taxotere and Cytoxan on January 21, 2017. She received cycle 3 on March 04, 2017. 03/13/17 the patient developed cough, shortness of breath and fever which prompted presentation to [facility] ED. Was found to have left lower lobe pneumonia. Admitted and started on antibiotics. Due for cycle 4 TC on 03/25/17. Upon assessment, patient states I am feeling better in terms of breathing, however admits to moderate-severe fatigue. Just returned from walk with therapy and tolerated well. Otherwise, denies CP, palpitations, N/V, diarrhea, hematuria and swelling/pain of her extremities. Describes appetite as good. Continues to smoke. - Physical Exam General: Alert, Oriented x3, Cooperative HEENT: Atraumatic, Normocephalic Neck: Supple, No JVD, Negative Carotid Bruits Lungs: No rhonchi, No wheeze, No rales, Diminished Cardiovascular: Regular rate, Normal S1, Normal S2, No murmurs Abdomen: Bowel Sounds Present, Soft, Non Tender, No Hepato-splenomegaly Extremities: No edema, Capillary Refill Less than 3 Seconds, No Calf Tenderness, Peripheral Pulses Normal Skin: No rashes, No breakdown Musculoskeletal: No Tenderness to Palpation of Joints or Extremities Lymphatic: No Cervical, Supraclavicular, or Inguinal Adenopathy Neurological: Cranial nerves II-XII grossly intact Psych/Mental Status: Normal Affect, Appropriate Vital Signs Temp Pulse Resp BP Pulse Ox 98.4 F 82 18 122/71 H 95 03/17/17 07:30 03/17/17 07:30 03/17/17 07:30 03/17/17 07:30 03/17/17 07:30 Oxygen Delivery Method Room Air Weight: 55.2 kg Body Mass Index (BMI) 23.8 Intake and Output for Last 24 Hours 01/20/18 01/21/18 01/22/18 23:59 23:59 23:59 Intake Total 2505 / 2505 3035.3 / 3035.3 1897 Balance 2505 / 2505 3035.3 / 3035.3 1897 Microbiology Past 72 Hours 03/16/17 11:50 Group A Streptococcus Rapid Screen - Preliminary Mucosa - Throat 03/13/17 04:15 Gram Stain - Final Sputum, Expectorated/Coughed Respiratory Culture - Final Mixed normal respiratory rosy. No Haemophilus, Streptococcus pneumoniae, beta-hemolytic Streptococcus or Staphylococcus aureus isolated. Laboratory Tests Past 24 Hrs 03/14/17 03/15/17 03/17/17 06:12 06:41 06:08 WBC 9.0 RBC 2.99 L Hgb 9.0 L Hct 27.8 L MCV 93.0 MCH 30.1 MCHC 32.4 RDW 15.5 H RDW Differential 50.4 H Plt Count 159 MPV 10.5 Immature Gran % (Auto) 2.000 H Neut % (Auto) 82.5 H Lymph % (Auto) 9.4 L [place] % (Auto) 5.5 Eos % (Auto) 0.3 Baso % (Auto) 0.3 Absolute Neuts (auto) 7.4 Absolute Lymphs (auto) 0.85 Total Counted Not Reportable Diff Path Review Reviewed Reviewed June Sodium Potassium Chloride Carbon Dioxide Anion Gap BUN Creatinine Estim Creat Clear Calc Est GFR (MDRD) Af Amer Est GFR (MDRD) Non-Af BUN/Creatinine Ratio Glucose Calcium 03/17/17 06:08 WBC RBC Hgb Hct MCV MCH MCHC RDW RDW Differential Plt Count MPV Immature Gran % (Auto) Neut % (Auto) Lymph % (Auto) Washburn % (Auto) Eos % (Auto) Baso % (Auto) Absolute Neuts (auto) Absolute Lymphs (auto) Total Counted Diff Path Review Sodium 142 Potassium 3.8 Chloride 110 H Carbon Dioxide 25.0 Anion Gap 7 BUN 8 Creatinine 0.47 L Estim Creat Clear Calc 38.68 Est GFR (MDRD) Af Amer 169 Est GFR (MDRD) Non-Af 140 BUN/Creatinine Ratio 17.0 Glucose 87 Calcium 8.1 L Assessment/Plan Active and Suspected Problems (Last Reviewed 02/27/17 @ 11:10 by Bryanna Nieto) Pneumonia (Acute) Sore throat (Acute) 67 y/o female with Invasive ductal carcinoma of right breast s/p mastectomy, presently receiving TC chemotherapy supported with G-CSF admitted through the ED 03/13/17 for management of pneumonia. 1. Acute severe sepsis secondary to left lower lobe community acquired Pneumonia- Stable VS, no fevers. CBC reviewed, WBC improved now 9. On IV Zosyn. 2. Stage IIA invasive ductal cancer of the right breast s/p mastectomy- Began systemic adjuvant chemotherapy, non-anthracycline (TC) 01/21/2017 support with Neulasta, most recent dose administered on 03/04/17. Will await clinical picture 03/25/17 to determine whether or not she will commence with 4th and final cycle of TC as scheduled. 3. Tobacco Abuse: Encouraged cessation, inpatient consultation per RT, nicotine patch. 4. DVT Prophylaxis: SCDs, lovenox. 5. Central line- Patient has power port left upper chest. Certainly this can be utilized using sterile technique if adequate blood return is present upon aspiration. Ms. Colladomami to follow up with Dr. Esparza at [facility] upon discharge. Tonie Enrique, YAO, RN CLINICAL COORDINATOR-C, AOCNP
[2017-03-17] MEDS: 0.9% NaCl Peripheral Flush Adult/Peds IV (14:51)
[2017-03-18] MEDS: 0.9% Normal Saline 1,000 ML 100 ML IV (03:50)
[2017-03-18] MEDS: Acetaminophen 325 MG Tablet 650 MG PO (06:52)
[2017-03-18] MEDS: guaiFENesin/Codeine 5 ML UDC PO ×2 (06:53→09:54)
[2017-03-18 07:13] VITALS: PULSE 81; RESP 16; O2SAT 97
[2017-03-18] MEDS: Ipratropium/Albuterol Sulfate 3 ML AMPUL.NEB INHALATION ×2 (07:13→10:46)
--- NOTE | 2017-03-18 08:04 | PCM.PROGNOTE ---
Patient Problems: Active and Suspected Problems (Last Reviewed 02/27/17 @ 11:10 by Bryanna Nieto) Pneumonia (Acute) Sore throat (Acute) Subjective: Patient reports improved sore throat this morning with only mild residual discomfort. Overall she reports feeling much better and denies any significant complaints. She reports that she anticipated discharge today. Objective: Well appearing female with normal voicing. - Physical Exam General: Alert, Oriented x3 HEENT: Atraumatic, PERRLA, EOMI Oral: Dry Mucosa Skin: No rashes, No breakdown Lymphatic: No Cervical, Supraclavicular, or Inguinal Adenopathy Psych/Mental Status: Normal Affect Vital Signs Temp Pulse Resp BP Pulse Ox 98.3 F 81 16 139/76 H 97 03/17/17 20:40 03/18/17 07:13 03/18/17 07:13 03/17/17 20:40 03/18/17 07:13 Oxygen Delivery Method Room Air Weight: 55.2 kg Body Mass Index (BMI) 23.8 Intake and Output for Last 24 Hours 03/16/17 03/17/17 03/18/17 23:59 23:59 23:59 Intake Total 3035.3 / 3035.3 3768 / 3768 1934 / 1934 Balance 3035.3 / 3035.3 3768 / 3768 193 / 193 Microbiology Past 72 Hours 03/16/17 11:50 Group A Streptococcus Rapid Screen - Preliminary Mucosa - Throat 03/13/17 04:15 Gram Stain - Final Sputum, Expectorated/Coughed Respiratory Culture - Final Mixed normal respiratory rosy. No Haemophilus, Streptococcus pneumoniae, beta-hemolytic Streptococcus or Staphylococcus aureus isolated. Laboratory Tests Past 24 Hrs 03/14/17 03/15/17 06:12 06:41 Diff Path Review Reviewed Reviewed Assessment/Plan Active and Suspected Problems (Last Reviewed 02/27/17 @ 11:10 by Bryanna Nieto) Pneumonia (Acute) Sore throat (Acute) Good clinical improvement of sore throat complaints. Continuation of antibiotic and antifungal therapy due to compromised state is advised to ensure resolution. Follow-up as an outpatient is offered for any further issues or recurrence of sore throat or hoarseness complaints for further assessment and my card was provided at the bedside.
--- NOTE | 2017-03-18 08:35 | PCM.DC ---
- Discharge Diagnoses Current Active Problems: Current Active and Chronic Problems (Last Reviewed 02/27/17 @ 11:10 by Bryanna Nieto) Chronic back pain (Chronic) IBS (irritable bowel syndrome) (Chronic) GERD (gastroesophageal reflux disease) (Chronic) Rheumatoid arthritis (Chronic) Anxiety and depression (Chronic) Pneumonia (Acute) Sore throat (Acute) Reason(s) for Visit for Discharge Instructions: Fever, chills, cough You will use the following diet at home:: Regular Your food should be the consistency of: Regular Your liquids should be the consistency of: Regular/Thin Discharge Activity: Return to Normal Activity Additional Instructions: Call your doctor or report back to ED if ypu develop persistent fever more than 101F or you get short of breath Allergies/Adverse Reactions: Allergies Antihistamines - Alkylamine Allergy (Verified 03/12/17 22:03) TACHYCARDIA Antihistamines - Ethanolamine Allergy (Verified 03/12/17 22:03) TACHYCARDIA Antihistamines - Ethylenediamine Allergy (Verified 03/12/17 22:03) TACHYCARDIA Antihistamines - Piperazine Allergy (Verified 03/12/17 22:03) TACHYCARDIA Antihistamines - Piperidine Allergy (Verified 03/12/17 22:03) TACHYCARDIA diphenhydramine [From Benadryl] Allergy (Verified 03/12/17 22:03) TACHYCARDIA Medications to take at Discharge ALPRAZolam [Xanax] 0.5 mg PO BID PRN PRN #30 11/17/16 Lidocaine/Prilocaine [Lidocaine-Prilocaine Cream] 2.5 % TP DAILY PRN 01/21/17 Omeprazole 20 mg PO DAILY 02/11/17 Ibuprofen [Ibuprofen Ib] 200 mg PO Q6H PRN PRN 02/27/17 Acetaminophen [Tylenol] 500 mg PO Q6H PRN PRN 03/12/17 Loratadine [Claritin] 10 mg PO DAILY 03/12/17 Amox/Clavulanate Tablet [Augmentin Tablet] 875 mg PO Q12H #14 tablet 03/18/17 Fluconazole [Diflucan] 100 mg PO DAILY #10 tablet 03/18/17 Guaifenesin [Mucinex] 1,200 mg PO BID #20 tablet 03/18/17 Nystatin 500,000 unit PO 4X/DAY #1 bottle 01/23/18 The following prescriptions were given: Amox/Clavulanate Tablet [Augmentin Tablet] 875 mg PO Q12H #14 tablet Fluconazole [Diflucan] 100 mg PO DAILY #10 tablet Guaifenesin [Mucinex] 1,200 mg PO BID #20 tablet Nystatin 500,000 unit PO 4X/DAY #1 bottle Orders to be completed after discharge: Basic Metabolic Profile (BMP) Time Frame: 1 Week, Location: Laboratory CBC W/Diff, Automated Time Frame: 1 Week, Location: Laboratory Primary Care Physician: Weston Tobar MD [Primary Care Provider] - Please follow up with your Primary Care Physician in: within 2 weeks of discharge Please Follow Up With: Lorenza Esparza MD When: as scheduled Please Follow Up With: Jose M Henson MD When: within 2 weeks Proposed Discharge Date: 03/18/17
--- NOTE | 2017-03-18 08:44 | DS.PCM_ITS ---
Discharge Date and Diagnosis Date of Admission: 03/13/17 Date of Discharge: 03/18/17 - Primary Discharge Diagnosis Active and Suspected Problems (Last Reviewed 02/27/17 @ 11:10 by Bryanna Nieto) Pneumonia (Acute) Sore throat (Acute) - Secondary Discharge Diagnosis Chronic Problems (Last Reviewed 02/27/17 @ 11:10 by Bryanna Nieto) Chronic back pain (Chronic) IBS (irritable bowel syndrome) (Chronic) GERD (gastroesophageal reflux disease) (Chronic) Rheumatoid arthritis (Chronic) Anxiety and depression (Chronic) Invasive ductal carcinoma of right breast (Chronic) Patient complains of pain all over body area as well as in her chest did give her her Percocet 5/325#15 but states she would have to get any additional pain meds from oncology if she needed more for pain due to chemo. Hospital Course and Treatment Imaging Results: Clinical Impression(s) from Imaging Studies Chest X-Ray 03/12/17 23:13 IMPRESSION: Hyperinflation, mild chronic appearing interstitial lung disease. New airspace disease left retrocardiac lung possible early pneumonia. Other nonacute findings as outlined above. Electronically Signed: Ramya Mayberry MD at 1:05 EST , Service support , ENT Operations: None Procedures: None Summary of Care Provided: 67 y/o female with invasive ductal carcinoma of right breast s/p mastectomy, ongoing chemotherapy, her last chemotherapy was 03/04/17, following with Dr. Esparza admitted through the ED 03/13/17 with history of ongoing fever, chills , cough, dyspnea x 24 hours. Her admission chest x-ray was suggestive of left retrocardiac pneumonia. Active management was follows: 1. Acute severe sepsis secondary to left lower lobe community acquired Pneumonia , patient's vitals have remained stable, no fevers seen, white cell count has improved, remains at 9.0 this morning, blood cultures ?48 hours have been negative, urine streptococcal and Legionella antigens are negative. Initially on Zosyn and Vanco and discharged on Augmentin. 2. Odynophagia, likely related to oropharyngeal candidiasis,discharged on nystatin swish and swallow and diflucan. 3. Invasive ductal carcinoma of right breast s/p mastectomy, ongoing chemotherapy, last chemotherapy on 03/04/2017, following Dr. Esparza. 4. Rheumatoid Arthritis. 5.Chronic Back Pain, on NSAIDs, oxycodone and as needed morphine 6. IBS: Not on regimen, defer to outpatient. 7. Anxiety and Depression, as needed Xanax 8. Tobacco Abuse: Encouraged cessation, inpatient consultation per RT, nicotine patch. Discharge Diet: Low fat/ Low Cholesterol, 2000 mg Sodium Diet Discharge Activity: Return to Normal Activity Home Medications: Medications to take at Discharge ALPRAZolam [Xanax] 0.5 mg PO BID PRN PRN #30 11/17/16 Lidocaine/Prilocaine [Lidocaine-Prilocaine Cream] 2.5 % TP DAILY PRN 01/21/17 Omeprazole 20 mg PO DAILY 02/11/17 Ibuprofen [Ibuprofen Ib] 200 mg PO Q6H PRN PRN 02/27/17 Acetaminophen [Tylenol] 500 mg PO Q6H PRN PRN 03/12/17 Loratadine [Claritin] 10 mg PO DAILY 03/12/17 Amox/Clavulanate Tablet [Augmentin Tablet] 875 mg PO Q12H #14 tab 03/18/17 Fluconazole [Diflucan] 100 mg PO DAILY #10 tab 03/18/17 Guaifenesin [Mucinex] 1,200 mg PO BID #20 tab 03/18/17 Nystatin 500,000 unit PO 4X/DAY #1 bottle 03/18/17 Following Prescrptions Were Given to Patient: Amox/Clavulanate Tablet [Augmentin Tablet] 875 mg PO Q12H #14 tab Fluconazole [Diflucan] 100 mg PO DAILY #10 tab Guaifenesin [Mucinex] 1,200 mg PO BID #20 tab Nystatin 500,000 unit PO 4X/DAY #1 bottle Primary Care Physician: Weston Tobar MD [Primary Care Provider] - Please follow up with your Primary Care Physician in: within 2 weeks of discharge Please Follow Up With: Lorenza Esparza MD When: as scheduled Please Follow Up With: Jose M Henson MD When: within 2 weeks Disposition: Home Minutes spent on discharge:: 25 Patient Condition:: Stable Meaningful Use Info Meaningful Use Diagnoses (Choose all that apply): None applicable Code Visit Inpatient E&M: 58841 Disch Hosp
[2017-03-18 09:05] VITALS: BP 124/64; PULSE 89; RESP 18; TEMP 36.7; O2SAT 93
[2017-03-18] MEDS: guaiFENesin 1,200 MG Tablet 1200 MG PO (09:54)
[2017-03-18] MEDS: Enoxaparin 40 MG/0.4 ML Syringe SC (09:54)
[2017-03-18] MEDS: Fluconazole 100 MG Tablet PO (09:54)
[2017-03-18] MEDS: NYSTATIN 500,000 UNIT/5 ML UDC 500000 UNIT PO (09:54)
[2017-03-18] MEDS: Famotidine 20 MG Tablet PO (09:54)
[2017-03-18] MEDS: Loratadine 10 MG Tablet PO (09:54)
[2017-03-18 10:46] VITALS: PULSE 83; RESP 16
[2017-03-18 11:52] VITALS: BP 124/74; PULSE 88; RESP 18; TEMP 36.4; O2SAT 93
[2017-03-18 13:01] LABS: Pathologist Review Reviewed
== END 2017-03-18 12:37 | disposition home or self-care (01) | DRG 871 ==
LOC: ED 23:42 → MS2 03-13 02:04
PROVIDERS: Internal Medicine; Admitting Provider Family Medicine; Emergency Provider Emergency Medicine; Family Provider Internal Medicine; PCP Internal Medicine; Visit Provider Internal Medicine
DX: A41.9 Sepsis, unspecified organism (principal); J18.9 Pneumonia, unspecified organism; B37.0 Candidal stomatitis; C50.911 Malignant neoplasm of unspecified site of right female breast; R65.20 Severe sepsis without septic shock; G89.29 Other chronic pain; Z90.11 Acquired absence of right breast and nipple; M54.9 Dorsalgia, unspecified; F17.210 Nicotine dependence, cigarettes, uncomplicated; K21.9 Gastro-esophageal reflux disease without esophagitis; F41.9 Anxiety disorder, unspecified; F32.9 Major depressive disorder, single episode, unspecified; M06.9 Rheumatoid arthritis, unspecified; K58.9 Irritable bowel syndrome, unspecified; Z79.899 Other long term (current) drug therapy; Z17.0 Estrogen receptor positive status [ER+]
CPT/HCPCS: 36415; 71046; 80048; 80053; 81001; 83605; 83735; 84100; 85025; 87040; 87070; 87086; 87088; 87205; 87449; 87880; 94640; 94667; 94668; 97110; 97116; 97162; 97166; 97530; 97535; 99285; 99406; J7030; J7040; J7050; A4216

== ENCOUNTER → 2017-03-24 13:15 | Outpatient (CLI) | payer MEDICARE, SELFPAY ==
[2017-03-24 14:10] LABS: Absolute Lymphocyte Count 1.34 X10^3/ul (0.83-4.51); Absolute Neutrophil Count 6.2 X10^3/uL (2.0-7.7); Basophil# 0.06 X10^3/uL; Basophil% 0.7 % (0-1); Eosinophil# 0.01 X10^3/uL; Eosinophils% 0.1 % (0-5); Hematocrit 35.2 % (37-47); Hemoglobin 11.7 g/dl (12.0-15.0); Lymphocyte # 1.34 X10^3/ul (4.0); Lymphocyte % 16.3 % (19-41); Mean Corp Hgb Conc 33.2 g/gl (32-36); Mean Corpuscular Volume 93.4 fL (81-99); Mean Platelet Vol. 10.2 fl (6.2-12.0); Monocyte# 0.64 X10^3/uL; Monocyte% 7.8 % (0-10); Neutrophil # 6.15 X10^3/uL (2.7-7.7); Neutrophil % 74.7 % (47-70); Platelet Count 525 K/mm3 (150-450); RBC Distribution Width CV 16.5 % (11.6-14.6); RBC Distribution Width SD 53.8 fl (35.1-43.9); Red Blood Count 3.77 M/mm3 (4.2-5.4); White Blood Count 8.2 K/mm3 (4.4-11.0)
[2017-03-24 14:11] LABS: ALB/GLOB Ratio 0.8 RATIO (0.9-2.4); AST(SGOT) 15 U/L (15-37); Alanine Aminotransfer ALT/SGPT 27 U/L (13-56); Albumin, Serum 3.3 g/dL (3.2-5.0); Alkaline Phosphatase 110 U/L (45-117); Anion Gap 8 (5-15); BUN 11 mg/dL (7-18); BUN/Creat Ratio 20.4 RATIO (10-20); Calcium,Total 8.9 mg/dL (8.5-10.1); Chloride 104 mmol/L (98-107); Creatinine, Serum 0.54 mg/dL (0.55-1.02); EST Glomerular Filtration Rate 120 mL/min (>60); Est Glom Filt Rate - Afr Amer 145 mL/min (>60); Globulin 4.1 g/dL (2.2-4.2); Glucose 88 mg/dL (70-110); Potassium 4.3 mmol/L (3.5-5.1); Protein, Total 7.4 g/dL (6.4-8.2); Sodium Level 138 mmol/L (136-145)
[2017-03-24 14:12] LABS: POSITIVE COUNT NO; POSITIVE DIFFERENTIAL NO; POSITIVE MORPHOLOGY NO
[2017-03-24 21:24] LABS: Xtra Tube EP Lab EXTRA TUBE
== END ==
PROVIDERS: Internal Medicine Hematology & Oncology; Family Provider Internal Medicine; PCP Internal Medicine; Visit Provider Internal Medicine
DX: Z51.89 Encounter for other specified aftercare (principal); J18.9 Pneumonia, unspecified organism
CPT/HCPCS: 36591; 80053; 85025; A4216

== ENCOUNTER → 2017-05-01 12:14 | Outpatient (CLI) | payer MEDICARE, SELFPAY ==
[2017-04-25 10:48] VITALS: BMI 24.4
== END ==
PROVIDERS: Family Provider Internal Medicine; PCP Internal Medicine; Visit Provider Internal Medicine Hematology & Oncology
DX: Z78.0 Asymptomatic menopausal state (principal); C50.911 Malignant neoplasm of unspecified site of right female breast; Z79.899 Other long term (current) drug therapy
CPT/HCPCS: 77080

== ENCOUNTER → 2017-05-07 10:10 | Outpatient (CLI) | payer MEDICARE, SELFPAY ==
[2017-04-25 10:48] VITALS: BMI 24.4
--- NOTE | 2017-05-01 12:22 | HPBD_ITS ---
STUDY: DUAL ENERGY X-RAY ABSORPTIOMETRY / DXA REASON FOR EXAM: Female, 67 years old. The patient is postmenopausal. Loss of height of 3 images. TECHNIQUE: Bone Mineral Density (BMD) measurements of lumbar spine and bilateral hips were obtained. COMPARISON: None. FINDINGS: Lumbar Spine (L1-L4): g/cm2 (0.773) / T-score (-3.6) / Z-score (-1.9) Findings are suggestive of osteoporosis with a high fracture risk. Increased thoracic kyphosis. Left Femur Total: g/cm2 (0.619) / T-score (-3.1) / Z-score (-1.7) Left Femoral Neck: g/cm2 (0.631) / T-score (-2.9) / Z-score (-1.3) Right Femur Total: g/cm2 (0.617) / T-score (-3.1) / Z-score (-1.7) Right Femoral Neck: g/cm2 (0.651) / T-score (-2.8) / Z-score (-1.2) HPBD/Dexa Bone Density Study (HP) IMPRESSION: The patient is considered osteoporotic as outlined below according to World [employer] Organization (WHO) criteria with a high fracture risk. Reference Information: The T-score is the number of standard deviations above or below the standard which is normal for young adults at their peak bone mineral density. The World Health Organization (WHO) interprets the T-scores as follows: Above -1 Normal bone density Between -1 and -2.5 Osteopenia Equal to / or below -2.5 Osteoporosis As a practical clinical guideline, osteopenia may be graded as follows: Mild -1 through -1.5 Moderate -1.6 through -2.0 Severe -2.1 through -2.4 The Z-score is the number of standard deviations above or below age-matched controls. A Z-score of less than -1.5 would be considered abnormal. References: 1. NIH Osteoporosis and Related Bone Diseases http://www.osteo.org 2. International Society for Clinical Densitometry http://www.iscd.org 3. National Osteoporosis Foundation http://www.nof.org Electronically Signed: Channing Villanueva MD at 15:00 EST Tel [phone], Service support ,
--- NOTE | 2017-05-07 10:13 | NM_ITS ---
CLINICAL: Female, 67 years old. Breast cancer and osteoporosis. WHOLE BODY NUCLEAR BONE SCAN TECHNIQUE: Following the IV administration of mCi of Tc MDP, whole body bone imaging was performed with a gamma camera following a three hour delay. COMPARISON STUDIES : NM - None. CR - Not available for review at this time. CT - Not available for review at this time. MR - Not available for review at this time. US - Not available for review at this time. FINDINGS: No definite focal areas of abnormal uptake suspicious for skeletal metastatic disease. Degenerative type changes in the left mid cervical spine, both shoulders, both elbows, wrists, and the knees. NM/Bone Scan Whole Body IMPRESSION: No definite metastatic disease. Electronically Signed: Eduardo Willoughby MD at 14:13 EDT , Service support ,
== END ==
PROVIDERS: Family Provider Internal Medicine; PCP Internal Medicine; Visit Provider Internal Medicine Hematology & Oncology
DX: M54.9 Dorsalgia, unspecified (principal); C50.911 Malignant neoplasm of unspecified site of right female breast
CPT/HCPCS: 78306

== ENCOUNTER → 2017-06-06 13:57 | Outpatient (CLI) | payer MEDICARE, SELFPAY ==
[2017-04-25 10:48] VITALS: BMI 24.4
--- NOTE | 2017-06-06 13:57 | VDUE_ITS ---
Left Proximal Jugular vein intraluminal echogenicity extends fromproximal to mid Jugular V. Left subclavian vein is spontaneous, widely patent, phasic, with no intraluminal echogenicity noted. Left Arm Left axillary vein is spontaneous, patent, phasic, competent, compressible and demonstrates augmentation. Left brachial vein is compressible. Left cephalic vein is compressible. Left basilic vein is compressible. Left Lower Arm Left radial vein is compressible. Left ulnar vein is compressible. < Interpretation Summary Acute deep venous thrombosis left internal jugular vein. Patent and compressible left subclavian, axillary, brachial, radial and ulnar veins. Patent and compressible left cephalic and basilic veins. Ordering Physician: Divine Win Referring Physician: Divine Win
== END ==
PROVIDERS: Family Provider Internal Medicine; PCP Internal Medicine; Visit Provider Surgery
DX: M79.602 Pain in left arm (principal); M54.2 Cervicalgia; Z45.2 Encounter for adjustment and management of vascular access device
CPT/HCPCS: 93971

== ENCOUNTER 2017-07-03 19:56 | Emergency (ER) | payer MEDICARE, SELFPAY ==
[2017-06-19 15:58] VITALS: BMI 24.4
[2017-07-03 19:57] VITALS: BP 149/80; PULSE 91; RESP 20; TEMP 36.8; O2SAT 98; BMI 25.2
--- NOTE | 2017-07-03 20:15 | EKG12_ITS ---
Test Reason : CP Blood Pressure : / mmHG Vent. Rate : 086 BPM Atrial Rate : 086 BPM P-R Int : 176 ms QRS Dur : 074 ms QT Int : 388 ms P-R-T Axes : 059 024 045 degrees QTc Int : 464 ms Normal sinus rhythm Normal ECG Confirmed by STANISLAV HERNADEZ MD ([id number]), sound editor PACHECO CORDOVA ([id number]) on 07/08/2017 1:38:00 PM Referred By: VITO Confirmed By:STANISLAV HERNADEZ MD
--- NOTE | 2017-07-03 20:15 | RAD_ITS ---
STUDY: X-RAY CHEST REASON FOR EXAM: Female, 67 years old. Chest pain TECHNIQUE: 1 view COMPARISON: Prior chest radiograph of March 13, 2017 FINDINGS: The lungs are clear and expanded. There is no demonstrated pleural abnormality. Normal size heart. Normal mediastinum and wil. Normal visualized pulmonary arteries. Normal visualized aortic arch and descending thoracic aorta. There is demineralization of the osseous structures. Normal visualized ribs, clavicles, and shoulders. Surgical kamryn of the right axilla status post right mastectomy. RAD/Chest 1 View (Portable) IMPRESSION: No acute cardiopulmonary findings or changes. Negative for new consolidation, focal atelectasis, cardiomegaly or pleural effusion. Electronically Signed: Livier Whitney MD at 21:03 EDT , Service support ,
--- NOTE | 2017-07-03 20:18 | ED.DCSUM_ITS ---
- ER Visit Summary Date of Service: 07/03/17 Chief Complaint: Chest pain History of Present Illness: The patient is a 67 F presenting with chest pain ?1 hour. She states the pain started in her left chest and radiates to her left shoulder and left side of her neck. She denies shortness of breath or diaphoresis. No nausea or vomiting. She has a history of breast cancer, GERD, IBS, rheumatoid arthritis. 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 Her mom had an NM in her 50s. She is a smoker. Physical Examination: Vitals are stable. Patient is afebrile. Alert no acute distress. 98% on room air. HEENT exam is unremarkable. Neck is supple. Lungs are clear and equal bilaterally. Heart is regular rate and rhythm. Abdomen is soft nontender nondistended. Extremities are unremarkable. Skin is warm and dry. No focal neurologic deficit. Remainder of exam is unremarkable. Emergency Department Course and Treatment: Patient was given aspirin on arrival. EKG is sinus rate of 86 with no acute ischemic changes. Chest x-ray shows no acute process. CBC, chemistries are unremarkable. Troponin is negative. On reevaluation, recommend observation for serial enzymes and stress test. Patient does not want to stay in the hospital. She is advised the risks of leaving AGAINST MEDICAL ADVICE including NM and . Patient understands these risks and signed out AGAINST MEDICAL ADVICE. She is advised to follow-up with her primary care physician and advised to return to ED if she has any worsening complaints. Disposition: Left AGAINST MEDICAL ADVICE Impression: Chest pain This note was generated with [employer] dictation software. It may contain incorrect words, spelling, and punctuation that were not noted in review of the chart prior to signing ED Disposition - Plan for ED Patient: Chief Complaint: Chest Pain Referrals: Weston Tobar MD [Primary Care Provider] -
[2017-07-03] MEDS: Aspirin 81 MG TAB.CHEW 324 MG PO (20:20)
[2017-07-03 21:03] LABS: Absolute Lymphocyte Count 1.68 X10^3/ul (0.83-4.51); Absolute Neutrophil Count 3.2 X10^3/uL (2.0-7.7); Basophil# 0.02 X10^3/uL; Basophil% 0.4 % (0-1); Eosinophil# 0.12 X10^3/uL; Eosinophils% 2.2 % (0-5); Hematocrit 41.6 % (37-47); Hemoglobin 13.8 g/dl (12.0-15.0); Lymphocyte # 1.68 X10^3/ul (4.0); Lymphocyte % 30.8 % (19-41); Mean Corp Hgb Conc 33.2 g/gl (32-36); Mean Corpuscular Hgb 29.3 pg (27.0-32.0); Mean Corpuscular Volume 88.3 fL (81-99); Mean Platelet Vol. 10.6 fl (6.2-12.0); Monocyte# 0.41 X10^3/uL; Monocyte% 7.5 % (0-10); Neutrophil # 3.23 X10^3/uL (2.7-7.7); Neutrophil % 59.1 % (47-70); Platelet Count 208 K/mm3 (150-450); Red Blood Count 4.71 M/mm3 (4.2-5.4); White Blood Count 5.5 K/mm3 (4.4-11.0)
[2017-07-03 21:07] LABS: POSITIVE COUNT NO; POSITIVE DIFFERENTIAL NO; POSITIVE MORPHOLOGY NO
[2017-07-03 21:09] VITALS: BP 135/82; PULSE 82; RESP 97; O2SAT 17
[2017-07-03 21:18] LABS: Anion Gap 7 (5-15); BUN 20 mg/dL (7-18); BUN/Creat Ratio 24.6 RATIO (10-20); Calcium,Total 8.3 mg/dL (8.5-10.1); Chloride 110 mmol/L (98-107); Creatinine, Serum 0.81 mg/dL (0.55-1.02); EST Glomerular Filtration Rate 74 mL/min (>60); Est Glom Filt Rate - Afr Amer 90 mL/min (>60); Estimated Creatinine Clearance 55.62 ml/min; Glucose 119 mg/dL (74-106); Potassium 3.9 mmol/L (3.5-5.1); Sodium Level 144 mmol/L (136-145)
--- NOTE | 2017-07-03 22:35 | ED.DEP ---
ED Disposition - Plan for ED Patient: Chief Complaint: Chest Pain Instructions: ED Chest Pain Atypical Unkn Cause Referrals: Weston Tobar MD [Primary Care Provider] -
[2017-07-03 23:01] VITALS: BP 145/80; PULSE 71; RESP 16; O2SAT 98
--- NOTE | 2017-07-03 23:04 | ED.RN ---
PT VOICES UNDERSTANDING OF DC INSTRUCTIONS, WILL RETURN FOR ANY CHANGES IN SYMPTOMS OR CONCERNS.
== END 2017-07-03 23:03 | disposition left against medical advice (07) ==
PROVIDERS: Emergency Provider Emergency Medicine; Family Provider Internal Medicine; PCP Internal Medicine
DX: R07.9 Chest pain, unspecified (principal); M06.9 Rheumatoid arthritis, unspecified; M54.9 Dorsalgia, unspecified; G89.29 Other chronic pain; F17.200 Nicotine dependence, unspecified, uncomplicated; Z85.3 Personal history of malignant neoplasm of breast; Z79.02 Long term (current) use of antithrombotics/antiplatelets; Z79.891 Long term (current) use of opiate analgesic; Z79.899 Other long term (current) drug therapy
CPT/HCPCS: 71045; 80048; 84484; 85025; 93005; 99284; A4216

== ENCOUNTER → 2017-08-29 12:43 | Outpatient (CLI) | payer MEDICARE, SELFPAY ==
[2017-06-19 15:58] VITALS: BMI 24.4
--- NOTE | 2017-08-29 12:47 | CDU_ITS ---
Reason For Study: DIZZINESS Rt. Velocities/BP Lt. Velocities/BP Prox CCA 104.0/19.9 cm/sec. Prox CCA 86.8/20.5 cm/sec. Mid CCA 8734/22.9 cm/sec. Mid CCA 89.1/18.8 cm/sec. Dist CCA 74.5/19.3 cm/sec. Dist CCA 85.0/22.9 cm/sec. Prox ICA 92.6/24.0 cm/sec. Prox ICA 72.7/24.6 cm/sec. Mid ICA 90.9/28.1 cm/sec. Mid ICA 62.5/18.2 cm/sec. Dist ICA 70.0/21.5 cm/sec. Dist ICA 70.4/24.0 cm/sec. Rt. ICA/CCA = 1.1. Lt. ICA/CCA = .82. Prox ECA 116.0/22.9 cm/sec. Prox ECA 85.6/18.8 cm/sec. Rt. Vert. 45.2/12.2 cm/sec. Lt. Vert. 45.7/13.5 cm/sec. Right Extracranial There is intimal thickening but no significant atherosclerotic plaque noted in the right common carotid artery. There is heterogeneous, irregular atherosclerotic plaque noted in the right internal carotid artery. There is heterogeneous, smooth atherosclerotic plaque noted in the right external carotid artery. Antegrade flow is noted in the right vertebral artery. Left Extracranial There is intimal thickening but no significant atherosclerotic plaque noted in the left common carotid artery. There is heterogeneous, irregular atherosclerotic plaque noted in the left internal carotid artery. There is intimal thickening but no significant atherosclerotic plaque noted in the left external carotid artery. Antegrade flow is noted in the left vertebral artery. Procedure Carotid Duplex [id number]. Exam performed in department. Interpretation Summary Irregular plague at the proixmal right internal carotid with <50% stenosis. Moderate plague at the proximal right external carotid with mild stenosis. Irregular calcific plague at the proximal left internal carotid with <50% stenosis. Normal flow left external carotid Patent and antegrade vertebrals bilaterally Ordering Physician: Dhiraj Jean Referring Physician: Dhiraj Jean Performed By: Cally Galarza RVT
== END ==
LOC: CVS 12:46
PROVIDERS: Family Provider Internal Medicine; PCP Internal Medicine; Visit Provider Nurse Practitioner Family
DX: R42 Dizziness and giddiness (principal); I82.C19 Acute embolism and thrombosis of unspecified internal jugular vein; M54.2 Cervicalgia; Z72.0 Tobacco use
CPT/HCPCS: 93880

== ENCOUNTER → 2017-11-24 08:36 | Outpatient (CLI) | payer MEDICARE, SELFPAY ==
[2017-06-19 15:58] VITALS: BMI 24.4
--- NOTE | 2017-11-24 09:07 | VDUE_ITS ---
Reason For Study: DVT F/U Left Proximal Left jugular vein is spontaneous, widely patent, phasic, with no intraluminal echogenicity noted. Left Arm Left axillary vein is spontaneous, patent, phasic, competent, compressible and demonstrates augmentation. Left brachial vein is compressible. Left cephalic vein is compressible. Left basilic vein is compressible. Left Lower Arm Left radial vein is compressible. Left ulnar vein is compressible. Interpretation Summary No evidence for acute deep venous thrombosis[left] upper extremity with patent and compressible cephalic and basilic veins. No acute findings in the left jugular vein. Resolved since 06/06/17. Ordering Physician: Weston Tobar Referring Physician: Weston Tobar Performed By: Yenny Martinez, OSCAR, RVT ???
== END ==
PROVIDERS: Family Provider Internal Medicine; PCP Internal Medicine; Referring Provider Internal Medicine; Visit Provider Internal Medicine
DX: I82.C12 Acute embolism and thrombosis of left internal jugular vein (principal)
CPT/HCPCS: 93971

== ENCOUNTER → 2017-12-01 11:01 | Outpatient (CLI) | payer MEDICARE, SELFPAY ==
[2017-06-19 15:58] VITALS: BMI 24.4
--- NOTE | 2017-12-01 11:09 | BI_ITS ---
MAMMOGRAPHY - UNILATERAL DIAGNOSTIC: LEFT BREAST REASON FOR EXAM: Female, 67 years old. Right breast carcinoma and mastectomy 11/15/2016 with chemotherapy and estrogen inhibitor. 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 TECHNIQUE: Digital examination. Mediolateral oblique (MLO) and craniocaudad (CC) views of the breast were obtained. CAD: CAD performed COMPARISON: 09/06/2016. FINDINGS: Breast Composition: The breasts are extremely dense, which lowers the sensitivity of mammography. Scattered benign appearing calcifications are again seen. No dense spiculated dominant masses or suspicious microcalcification cluster are identified. No architectural distortion, asymmetric density, adenopathy, skin thickening or nipple retraction identified. No significant abnormality noted with tomosynthesis imaging. There has been no significant change since the most recent prior study. BI/UNILAT LT SCRN W/CAD IMPRESSION: No mammographic sign of malignancy. Routine yearly mammograms recommended. ASSESSMENT CATEGORY: BIRADS Category 2: Benign. A letter regarding these results will be sent to the patient by the facility within 30 days. FOLLOW UP RECOMMENDATION: Yearly follow up mammogram recommended. (A) If clinically indicated, MRI breasts may be more helpful for further evaluation due to extreme dense breast tissue which lowers the sensitivity of mammography for neoplasm. Negative mammographic results should not deter biopsy as a palpable lesion if present should be followed on clinical grounds and biopsy performed if clinically persistent for 3 months or increasing size. Approximately 10% of breast cancers are not detected by mammography. A normal mammogram should not delay biopsy of a clinically suspicious abnormality. Dense breast tissue mainstream neoplasm. Electronically Signed: Wilbur Barlow, at 10:34 EDT Tel , Service support ,
== END ==
LOC: OPBI 11:02
PROVIDERS: Family Provider Internal Medicine; PCP Internal Medicine; Referring Provider Internal Medicine Hematology & Oncology; Visit Provider Internal Medicine Hematology & Oncology
DX: Z85.3 Personal history of malignant neoplasm of breast (principal); Z90.11 Acquired absence of right breast and nipple
CPT/HCPCS: 77061; 77062; 77066; 77067; G0279

== ENCOUNTER → 2018-03-23 09:30 | Outpatient (CLI) | payer MEDICARE, SELFPAY ==
[2018-02-09 10:47] VITALS: BMI 24.4
[2018-03-23 08:45] VITALS: BMI 26.8
[2018-03-23 11:01] LABS: Anion Gap 10 (5-15); BUN 13 mg/dL (7-18); Calcium,Total 9.1 mg/dL (8.5-10.1); Chloride 107 mmol/L (98-107); Creatinine, Serum 0.68 mg/dL (0.55-1.02); EST Glomerular Filtration Rate 90 mL/min (>60); Est Glom Filt Rate - Afr Amer 109 mL/min (>60); Glucose 93 mg/dL (74-106); Potassium 3.6 mmol/L (3.5-5.1); Sodium Level 142 mmol/L (136-145)
== END ==
PROVIDERS: Family Provider Internal Medicine; PCP Internal Medicine; Referring Provider Internal Medicine; Visit Provider Internal Medicine
DX: I10 Essential (primary) hypertension (principal)
CPT/HCPCS: 36415; 80048

== ENCOUNTER 2018-05-29 18:52 | Emergency (ER) | payer MEDICARE, SELFPAY ==
[2018-02-09 10:47] VITALS: BMI 24.4
[2018-05-04 10:46] VITALS: BMI 27.3
[2018-05-29 18:53] VITALS: BP 128/73; PULSE 84; RESP 20; TEMP 36.6; O2SAT 97; BMI 26.2
[2018-05-29 19:09] VITALS: O2SAT 95
--- NOTE | 2018-05-29 19:23 | EKG12_ITS ---
Test Reason : Blood Pressure : / mmHG Vent. Rate : 076 BPM Atrial Rate : 076 BPM P-R Int : 190 ms QRS Dur : 072 ms QT Int : 402 ms P-R-T Axes : 060 035 035 degrees QTc Int : 452 ms Normal sinus rhythm Low voltage QRS Borderline ECG Confirmed by SATYA CRUZ, STANISLAV ([id number]), publication editor KARTHIK WORLEY ([id number]) on 06/01/2018 10:57:33 AM Referred By: MARKUS Confirmed By:STANISLAV HERNADEZ MD
--- NOTE | 2018-05-29 19:31 | ED.DCSUM_ITS ---
- ER Visit Summary Date of Service: 05/29/18 Chief Complaint: Cough, shortness of breath History of Present Illness: The patient is a 68 F with history of underlying lung disease and prior mastectomy for breast cancer presents to the emergency department cough, fever, shortness of breath. Patient states she feels like she is getting pneumonia. She did have this a few years ago. She states 3 days ago, she started with nasal drainage, runny nose, myalgias, and cough. Over the past 2 days, she had worsening cough. She describes pain in the right side of her chest. She does feel mildly short of breath. She states this feels very similar when she had pneumonia in the past. She did not get a flu shot this year. She denies any sick contacts. Physical Examination: Vital signs reviewed General: Well-nourished, well-developed Head: Normocephalic, atraumatic Eyes: Pupils equal and reactive, extraocular muscles intact Neck, supple, no lymphadenopathy Heart: Regular rate and rhythm Respiratory: No distress, rhonchi on the right Abdomen: Soft, nontender, nondistended, no peritoneal signs Back: Nontender Extremities: Nontender, no edema, no cords Skin: Normal color no rash Neuro: Alert and oriented, no focal or lateralizing deficits Test Results: [] Emergency Department Course and Treatment: The patient does have wheezing and rhonchi in the right lower lung field. She was not hypoxic. She has no tachyp carl. The patient was given nebulized breathing treatments and fluids. She had improvement of aeration. She was resting more comfortably. Her lung sounds have cleared. Chest x-ray shows no evidence of focal infiltrate. Patient's white blood cells were 4. The rest of her labs are unremarkable. Her influenza was negative. My suspicion is that this may be a COPD exacerbation versus an atypical pneumonia. I do feel the patient is safe for outpatient therapy. I am going to treat her with azithromycin. She is comfortable with this plan of care. She will be discharged home. Treatment Plan: [] Disposition: Discharge Impression: 1. Atypical pneumonia This note was generated with [employer] software. It may contain incorrect words, spelling, and punctuation that were not noted in review of the chart prior to signing ED Disposition - Plan for ED Patient: Instructions: ED Upper Resp Infec Abx Tx Prescriptions: Azithromycin [Zithromax] 250 mg PO DAILY #4 tab RX: Prednisone [Deltasone] 40 mg PO DAILY #10 tab Referrals: Weston Tobar MD [Primary Care Provider] -
[2018-05-29] MEDS: 0.9% Normal Saline 1,000 ML 1000 ML IV (19:57)
--- NOTE | 2018-05-29 20:00 | RAD_ITS ---
STUDY: X-RAY CHEST REASON FOR EXAM: Female, 68 years old. Cough TECHNIQUE: Frontal and lateral views COMPARISON: July 03, 2017. FINDINGS: The lungs are clear and expanded. There is no demonstrated pleural abnormality. Normal size heart. Normal mediastinum and wil. Normal visualized pulmonary arteries. Calcified visualized aortic arch and descending thoracic aorta. Normal visualized thoracic spine. Normal visualized ribs, clavicles, and shoulders. Surgical clips over the right axilla. There is no demonstrated abnormality of the visualized soft tissue structures of the upper abdomen. RAD/Chest PA and Lateral IMPRESSION: Normal x-ray examination of the chest. Electronically Signed: Avtar Morel DO at 21:01 EDT Tel [phone], Service support ,
[2018-05-29] MEDS: Albuterol 2.5 MG/3 ML VIAL.NEB. INHALATION ×2 (20:02)
[2018-05-29] MEDS: Ipratropium/Albuterol Sulfate 3 ML AMPUL.NEB INHALATION (20:02)
[2018-05-29 20:15] LABS: Absolute Lymphocyte Count 1.29 X10^3/ul (0.83-4.51); Absolute Neutrophil Count 2.3 X10^3/uL (2.0-7.7); Basophil# 0.02 X10^3/uL; Basophil% 0.5 % (0-1); Eosinophil# 0.05 X10^3/uL; Eosinophils% 1.3 % (0-5); Hematocrit 41.4 % (37-47); Hemoglobin 13.8 g/dl (12.0-15.0); Lymphocyte # 1.29 X10^3/ul (4.0); Lymphocyte % 32.6 % (19-41); Mean Corp Hgb Conc 33.3 g/gl (32-36); Mean Corpuscular Hgb 30.1 pg (27.0-32.0); Mean Corpuscular Volume 90.2 fL (81-99); Mean Platelet Vol. 10.6 fl (6.2-12.0); Monocyte% 7.6 % (0-10); Neutrophil # 2.29 X10^3/uL (2.7-7.7); Neutrophil % 57.7 % (47-70); Platelet Count 174 K/mm3 (150-450); RBC Distribution Width CV 12.9 % (11.6-14.6); RBC Distribution Width SD 42.1 fl (35.1-43.9); Red Blood Count 4.59 M/mm3 (4.2-5.4)
[2018-05-29 20:17] LABS: POSITIVE COUNT NO; POSITIVE DIFFERENTIAL NO; POSITIVE MORPHOLOGY NO
[2018-05-29 20:21] VITALS: PULSE 71; RESP 18
[2018-05-29 20:25] LABS: ALB/GLOB Ratio 1.2 RATIO (0.9-2.4); AST(SGOT) 18 U/L (15-37); Alanine Aminotransfer ALT/SGPT 23 U/L (13-56); Albumin, Serum 3.6 g/dL (3.2-5.0); Alkaline Phosphatase 96 U/L (45-117); Anion Gap 5 (5-15); BUN 10 mg/dL (7-18); BUN/Creat Ratio 17.7 RATIO (10-20); Calcium,Total 7.9 mg/dL (8.5-10.1); Chloride 108 mmol/L (98-107); Creatinine, Serum 0.56 mg/dL (0.55-1.02); EST Glomerular Filtration Rate 113 mL/min (>60); Est Glom Filt Rate - Afr Amer 137 mL/min (>60); Estimated Creatinine Clearance 49.43 ml/min; Glucose 90 mg/dL (74-106); Potassium 3.4 mmol/L (3.5-5.1); Protein, Total 6.6 g/dL (6.4-8.2); Sodium Level 140 mmol/L (136-145)
[2018-05-29 20:35] LABS: Lactic Acid 0.8 mmol/L (0.4-2.0)
[2018-05-29 20:37] LABS: Bacteria 0 SEEN /hpf (None Seen); Mucous, Urine 0 SEEN /hpf (<or=2+); White Blood Cells 0 SEEN /hpf (0-5)
[2018-05-29 20:43] LABS: Color, Urine Yellow (Yellow); Glucose, Dipstick Normal (Normal); Ketone-Dipstick Negative (Negative); Leukocyte Esterase-Dipstick Negative /ul (Negative); Nitrite-Dipstick Negative (Negative); Occult Blood-Urine 10 /ul (Negative); Protein-Dipstick Negative (Negative); Specific Gravity, Urine 1.005 (1.002-1.030); Urine Bilirubin Dipstick Negative (Negative); Urine Clarity Sl. Cloudy (Clear); Urine Urobilinogen Normal (Normal)
[2018-05-29 20:49] LABS: Red Blood Cells-Urine 0-5 SEEN /hpf (0-5); Squamous Epithelial Cells - UA 0-5 SEEN /hpf (5-10)
[2018-05-29 21:10] VITALS: BP 124/57; PULSE 85; RESP 20; O2SAT 95
[2018-05-29] MEDS: Azithromycin 250 MG Tablet 500 MG PO (21:26)
[2018-05-29] MEDS: MethylPREDNISolone 125 MG/2 ML Vial IV (21:26)
[2018-05-29 21:30] VITALS: BP 124/57; PULSE 87; RESP 16; O2SAT 95
== END 2018-05-29 21:39 | disposition home or self-care (01) ==
PROVIDERS: Emergency Provider Emergency Medicine; Family Provider Internal Medicine; PCP Internal Medicine
DX: J18.9 Pneumonia, unspecified organism (principal); J40 Bronchitis, not specified as acute or chronic; K21.9 Gastro-esophageal reflux disease without esophagitis; I10 Essential (primary) hypertension; Z72.0 Tobacco use; Z85.3 Personal history of malignant neoplasm of breast; Z79.82 Long term (current) use of aspirin; Z79.899 Other long term (current) drug therapy
CPT/HCPCS: 71046; 80053; 81001; 83605; 85025; 87040; 87804; 93005; 94640; 96361; 96374; 99285; J7030; A4216; J2405

== ENCOUNTER → 2018-12-08 | Outpatient (CLI) | payer MEDICARE, SELFPAY ==
[2018-02-09 10:47] VITALS: BMI 24.4
[2018-11-03 11:37] VITALS: BMI 26.9
--- NOTE | 2018-12-08 11:01 | BI_ITS ---
MAMMOGRAPHY - UNILATERAL SCREENING: LEFT BREAST REASON FOR EXAM: Female, 68 years old. Routine annual screening examination (unilateral). PERTINENT HISTORY: Personal history of breast cancer. Prior right mastectomy with chemotherapy. TECHNIQUE: Digital unilateral breast mita (3D mammographic acquisition) in the CC and MLO projections. 2-D mediolateral oblique (MLO) and craniocaudad (CC) views of both breasts were obtained. CAD: Full Field Digital Mammography with Computer Added Detection was performed. COMPARISON: Comparison is made with prior study dated December 01, 2017 and October 03, 2016. FINDINGS: Breast Composition: The breasts are extremely dense, which lowers the sensitivity of mammography. There are no dominant masses or suspicious calcifications. No other significant abnormalities are identified. There has been no significant change since the prior study. BI/SCREEN MAMM (CAD) W/MITA UNI L IMPRESSION: Stable unilateral screening mammogram. Yearly follow-up mammogram recommended. (A) ASSESSMENT CATEGORY: BIRADS Category 1: Negative. A letter regarding these results will be sent to the patient by the facility within 30 days. Approximately 10% of breast cancers are not detected by mammography. A normal mammogram should not delay biopsy of a clinically suspicious abnormality. [id number] Electronically Signed: Channing Villanueva, at 14:08 EDT , Service support ,
--- NOTE | 2018-12-08 12:19 | CT_ITS ---
STUDY: LOW DOSE CT LUNG CANCER SCREENING REASON FOR EXAM: Female, 68 years old. Patient has a smoking history of 2 packs per day for 55 years. History of breast cancer and mastectomy. RADIATION DOSAGE (If Supplied By Facility): CTDIvol = ( 1.7 ) mGy, DLP = ( 51.48 ) mGycm TECHNIQUE: No contrast was administered. Low dose technique was utilized (average mAS-38 and kVp 120). 1.25 mm axial source images with a slice interval of 1.25-mm were reconstructed in lung windows. 2.5 mm axial source images with a slice interval of 2.5-mm were reconstructed in lung windows. 5.0 mm axial source images with a slice interval of 5.0-mm were reconstructed in soft tissue windows. Nodule measured using lung windows on PACS and/or independent workstation with automated measurement of minimum and maximum diameter. Nodule measurement reported as average diameter rounded to the nearest whole number. Growth is defined as an increase ins size of greater than 1.5 mm. COMPARISON: None. Prior right mastectomy and right axillary kylie dissection. NODULES: Findings suggestive of scarring at the lung apices more prominent at the right lung apex. No suspicious nodules seen. Emphysema: Mild emphysematous changes. Aorta: Atherosclerotic calcification. Coronary arteries: Coronary artery calcification. Mediastinal nodes: Small lymph nodes. Other chest and abdominal findings: Degenerative changes of the thoracic spine. CT/Low Dose CT Lung Screening IMPRESSION: Lung-RADS category 2 - Continue annual screening with LDCT in 12 months. IMPORTANT NOTES FOR USE: ACR Lung-RADS Version 1.0 Assessment Categories Release Date: June 21, 2013 Category: Coded 0-4 bases on nodule(s) with highest degree of suspicion. Negative screen is defined as categories 1 and 2; a positive screen is defined as categories 3 and 4. Category 3 and 4A nodules that are unchanged on interval CT should be coded as category 2, and individuals returned to screening in 12 months. Category 4X: Category 3 or 4 nodules with additional imaging findings that increase the suspicion of lung cancer, such as spiculation, GGN that doubles in size in 1 year, enlarged lymph notes, etc. Category Modifiers: S (significant finding unrelated to lung cancer) and C (prior history of treated lung cancer) may be added to the 0-4 Lung-RADS Electronically Signed: Channing Villanueva, at 15:54 EDT , Service support ,
== END | disposition home or self-care (01) ==
PROVIDERS: Family Provider Internal Medicine; PCP Internal Medicine; Referring Provider Internal Medicine Hematology & Oncology; Visit Provider Internal Medicine Hematology & Oncology
DX: C50.911 Malignant neoplasm of unspecified site of right female breast (principal); F17.200 Nicotine dependence, unspecified, uncomplicated; Z12.2 Encounter for screening for malignant neoplasm of respiratory organs; Z12.31 Encounter for screening mammogram for malignant neoplasm of breast; Z87.891 Personal history of nicotine dependence
CPT/HCPCS: 77061; 77067; G0297; G0279

== ENCOUNTER → 2018-12-21 | Outpatient (CLI) | payer MEDICARE, SELFPAY ==
[2018-02-09 10:47] VITALS: BMI 24.4
[2018-12-21 11:07] VITALS: BMI 26.6
[2018-12-21 12:31] LABS: Cholesterol 215 mg/dL (200); High Density Lipoprotein 46 mg/dL; Triglycerides 108 mg/dL; Very Low Density Lipoprotein 22 mg/dL (5-40)
== END | disposition home or self-care (01) ==
LOC: BIMLAB 11:26
PROVIDERS: Family Provider Internal Medicine; PCP Internal Medicine; Visit Provider Internal Medicine
DX: I10 Essential (primary) hypertension (principal)
CPT/HCPCS: 36415; 80061

== ENCOUNTER 2019-11-23 04:58 | Emergency (ER) | payer MEDICARE, SELFPAY ==
[2018-02-09 10:47] VITALS: BMI 24.4
[2019-09-10 11:24] VITALS: BMI 27.8
[2019-11-23 05:01] VITALS: BP 137/60; PULSE 89; RESP 16; TEMP 37.1; O2SAT 95; BMI 28.0
--- NOTE | 2019-11-23 05:12 | RAD_ITS ---
STUDY: X-RAY CHEST REASON FOR EXAM: Female, 69 years old. CHILLS, COUGH, SOB, WEAKNESS. THAT IS WITH HER IS COVID POSITIVE TECHNIQUE: Single AP portable view of the chest. . COMPARISON: Chest x-ray 05/29/2018. FINDINGS: There are no confluent pulmonary infiltrates. There is no demonstrated pleural abnormality. Normal size heart. Normal mediastinum and wil. Normal visualized aortic arch and descending thoracic aorta. There are no demonstrated acute fractures or destructive bone lesions. There is no demonstrated abnormality of the visualized soft tissue structures of the upper abdomen. RAD/Chest 1 View (Portable) IMPRESSION: No evidence for acute cardiopulmonary pathology. Electronically Signed: Neno Lopez MD at 6:06 EDT , Service support ,
--- NOTE | 2019-11-23 05:17 | ED.VIS.GEN ---
History of Present Illness Chief Complaint: Weakness Informant: Patient Onset: Today Context: Sudden Onset Timing: Continuous Current Severity: Moderate Maximum Severity: Moderate Narrative: The patient is a 69-year-old female medical history significant for prior breast cancer status post mastectomy and chemo 4 years ago, smoking history, and hypertension that presents to the emergency department with chills and generalized malaise. The patient's was here yesterday and was diagnosed with COVID. She states she was doing fine until an hour prior to arrival. She began to have rigors and joint pain. She denies shortness of breath. She denies change in taste or smell. She felt like she had a fever but did not take her temperature. She is not currently on any immunosuppressants. She states she is otherwise been in her normal state of health. Prior similar symptoms: No Recent Illness/Hospitalization: No Past Medical History - Allergies and Home Meds Allergies/Adverse Reactions: Allergies Antihistamines - Alkylamine Allergy (Severe, Verified 11/23/19 05:06) TACHYCARDIA REVIEWED ALL ALERGEN/ADVREAC ON 07-29-17 Antihistamines - Ethanolamine Allergy (Severe, Verified 11/23/19 05:06) TACHYCARDIA Antihistamines - Ethylenediamine Allergy (Severe, Verified 11/23/19 05:06) TACHYCARDIA Antihistamines - Piperazine Allergy (Severe, Verified 11/23/19 05:06) TACHYCARDIA Antihistamines - Piperidine Allergy (Severe, Verified 11/23/19 05:06) TACHYCARDIA diphenhydramine [From Benadryl] Allergy (Severe, Verified 11/23/19 05:06) TACHYCARDIA Primary Care Physician: Weston Tobar MD [Primary Care Provider] - Prior records reviewed: Yes Past Medical History: - - Hypertension, prior breast cancer, rheumatoid arthritis Surgical History: noncontributory, - Smoking Status: Current every day smoker - Family History Maternal Family History: Family History (Last Reviewed 09/10/19 @ 11:22 by Shira Garcia) Mother Heart disease Diabetes Arthritis Father Heart disease Family History: Reports: - - Maternal family history of arthritis, heart disease, diabetes. Paternal Family History: Family History (Last Reviewed 09/10/19 @ 11:22 by Shira Garcia) Mother Heart disease Diabetes Arthritis Father Heart disease Family History: Reports: - - Paternal family history of heart disease. Review of Systems General: Reports: Chills, Malaise. Denies: Fever, Sweats Eyes: Denies: Visual changes - bilaterally, Diplopia ENT: Denies: Rhinorrhea, Sore throat Cardiovascular: Denies: Chest pain, Palpitations Respiratory: Denies: Dyspnea, Cough, Dyspnea on exertion Gastrointestinal: Denies: Abdominal pain, Nausea, Vomiting, Diarrhea, Melena, Hematochezia Genitourinary: Denies: Dysuria, Hematuria, Frequency Musculoskeletal: Denies: Back pain, Extremity Pain Skin: Denies: Rash, Wounds Neurological: Denies: Headache, Weakness, Numbness Physical Exam Vital Signs/Narrative: Vital Signs Temp Pulse Resp BP Pulse Ox 11/23/19 05:01 98.8 F 89 16 137/60 H 95 Inital Vital Signs reviewed: Yes General: Well nourished, Well developed, No Acute Distress Head: Normocephalic, Atraumatic Eyes: Perrl, EOMI ENT: Moist mucous membranes, No rhinorrhea Neck: Supple, Nontender Cardiovascular: Regular rate, Regular rhythm, No murmurs Respiratory: No distress, CTA bilaterally, Chest nontender Abdomen: Soft, Nontender, Nondistended, Normal bowel sounds Back: Nontender, Normal Inspection Extremities: Nontender, No edema Skin: Normal color, No rash Neurological: Alert, Oriented x3, Cranial nerves II-XII grossly intact, Normal Strength, Normal Sensation Psychological: Normal affect, Normal Mood Diagnostic/Tx/Re-eval Abnormal Lab Results 11/23/19 11/23/19 05:40 05:40 WBC 6.8 RBC 4.50 Hgb 13.5 Hct 41.2 MCV 91.6 MCH 30.0 MCHC 32.8 RDW Std Deviation 43.1 RDW Coeff of Awa 12.7 Plt Count 121 L MPV 11.4 Immature Gran % (Auto) 1.500 H Neut % (Auto) 87.0 H Lymph % (Auto) 7.6 L [place] % (Auto) 3.2 Eos % (Auto) 0.4 Baso % (Auto) 0.3 Absolute Neuts (auto) 6.0 Absolute Lymphs (auto) 0.52 L Nucleated RBC % 0 Sodium 140 Potassium 4.1 Chloride 108 H Carbon Dioxide 28.0 Anion Gap 4 L BUN 19 H Creatinine 0.79 Estim Creat Clear Calc 52.15 Est GFR (MDRD) Af Amer 92 Est GFR (MDRD) Non-Af 76 BUN/Creatinine Ratio 24.0 H Glucose 195 H Calcium 9.0 Total Bilirubin 0.30 AST 26 ALT 37 Alkaline Phosphatase 98 Total Protein 6.4 Albumin 3.3 Globulin 3.1 Albumin/Globulin Ratio 1.1 - Medical Decision Making The patient presents with rather sudden onset malaise and fatigue. She does have smoking history but is never formally been diagnosed with COPD. She is not tachypneic or hypoxic. She is in no distress. The patient's was diagnosed with COVID about 6 hours ago. Her symptoms have just started. COVID was obtained as a send out. Chest x-ray shows no focal infiltrative process. Screening labs are relatively unremarkable. The patient is in no distress. On reevaluation, she is resting comfortably. She has no oxygen requirement. She appears well-hydrated. I did discuss with her that this is likely COVID especially given her exposure. At this point however I do feel the patient is safe for discharge with outpatient monitoring. She is comfortable with this plan of care. She was counseled on quarantine and reasons to return. She will be discharged home. Impression 1. Exposure to COVID-19 2. Generalized malaise ED Disposition - Plan for ED Patient: Instructions: ED Viral Syndrome Referrals: Weston Tobar MD [Primary Care Provider] -
[2019-11-23] MEDS: 0.9% Normal Saline 1,000 ML 125 ML IV (05:35)
[2019-11-23 05:43] VITALS: BP 137/60; PULSE 89; RESP 16; TEMP 37.1; O2SAT 95
[2019-11-23 05:49] LABS: Absolute Lymphocyte Count 0.52 X10^3/uL (0.83-4.51); Basophil# 0.02 X10^3/uL; Basophil% 0.3 % (0-1); Differential Indicated SCAN CRITERIA MET; Eosinophil# 0.03 X10^3/uL; Eosinophils% 0.4 % (0-5); Hematocrit 41.2 % (37-47); Hemoglobin 13.5 g/dL (12.0-15.0); Lymphocyte # 0.52 X10^3/ul (4.0); Lymphocyte % 7.6 % (19-41); Mean Corp Hgb Conc 32.8 g/dL (32-36); Mean Corpuscular Volume 91.6 fL (81-99); Mean Platelet Vol. 11.4 fl (6.2-12.0); Monocyte# 0.22 X10^3/uL; Monocyte% 3.2 % (0-10); NRBC Flagged by Analyzer 0 % (0-5); Neutrophil # 5.95 X10^3/uL (2.7-7.7); POSITIVE COUNT YES; POSITIVE DIFFERENTIAL YES; Platelet Count 121 K/mm3 (150-450); RBC Distribution Width CV 12.7 % (11.6-14.6); RBC Distribution Width SD 43.1 fl (35.1-43.9); White Blood Count 6.8 K/mm3 (4.4-11.0)
[2019-11-23 06:01] LABS: ALB/GLOB Ratio 1.1 RATIO (0.9-2.4); AST(SGOT) 26 U/L (15-37); Alanine Aminotransfer ALT/SGPT 37 U/L (13-56); Albumin, Serum 3.3 g/dL (3.2-5.0); Alkaline Phosphatase 98 U/L (45-117); Anion Gap 4 (5-15); BUN 19 mg/dL (7-18); Chloride 108 mmol/L (98-107); Creatinine, Serum 0.79 mg/dL (0.55-1.02); EST Glomerular Filtration Rate 76 mL/min (>60); Est Glom Filt Rate - Afr Amer 92 mL/min (>60); Estimated Creatinine Clearance 52.15 ml/min; Globulin 3.1 g/dL (2.2-4.2); Glucose 195 mg/dL (74-106); Potassium 4.1 mmol/L (3.5-5.1); Protein, Total 6.4 g/dL (6.4-8.2); Sodium Level 140 mmol/L (136-145)
[2019-11-23 06:06] VITALS: BP 110/60; PULSE 84; RESP 22; TEMP 36.7; O2SAT 96
[2019-11-23 06:25] LABS: Differential Comment SCANNED
[2019-11-23 06:39] VITALS: BP 110/60; PULSE 84; RESP 22; TEMP 36.7; O2SAT 96
--- NOTE | 2019-11-25 10:48 | ED.RN ---
THIS NURSE LEFT A MESSAGE FOR THE PATIENT TO CONTACT THE ER
--- NOTE | 2019-11-25 18:38 | ED.RN ---
this nurse contacted the pt and informed her of the positive covid results
== END 2019-11-23 06:57 | disposition home or self-care (01) ==
LOC: ED 05:49
PROVIDERS: Emergency Provider Emergency Medicine; PCP Internal Medicine
DX: U07.1 COVID-19 (principal); R53.81 Other malaise; I10 Essential (primary) hypertension; M06.9 Rheumatoid arthritis, unspecified; F17.200 Nicotine dependence, unspecified, uncomplicated
CPT/HCPCS: 71045; 80053; 85025; 87635; 96360; 99284; J7030; U0003

== ENCOUNTER 2019-11-28 19:52 | Inpatient (IN) | payer MEDICARE, SELFPAY ==
[2018-02-09 10:47] VITALS: BMI 24.4
[2019-11-28] VITALS (10 sets, daily range): BP systolic 113–128; BP diastolic 60–99; PULSE 79–88; RESP 14–26; TEMP 36.2–36.6; O2SAT 95–98; BMI 26.2; BMI 26.9; BMI 27.0
--- NOTE | 2019-11-28 20:07 | RAD_ITS ---
STUDY: X-RAY CHEST REASON FOR EXAM: Female, 69 years old. Shortness of breath, COVID positive. TECHNIQUE: Single frontal view of the chest. COMPARISON: 11/23/2019 FINDINGS: Right axillary clips. The lungs are clear and expanded. There is no demonstrated pleural abnormality. Normal size heart. Normal mediastinum and wil. Normal visualized pulmonary arteries. Normal visualized aortic arch and descending thoracic aorta. Normal visualized thoracic spine. Normal visualized ribs, clavicles, and shoulders. Cholecystectomy clips. RAD/Chest 1 View (Portable) IMPRESSION: No acute pulmonary findings. Electronically Signed: Rashard Cao MD at 21:04 EDT Tel , Service support ,
--- NOTE | 2019-11-28 20:07 | EKG12_ITS ---
Test Reason : SOB Blood Pressure : / mmHG Vent. Rate : 084 BPM Atrial Rate : 084 BPM P-R Int : 178 ms QRS Dur : 072 ms QT Int : 380 ms P-R-T Axes : 046 027 025 degrees QTc Int : 449 ms Normal sinus rhythm Normal ECG Confirmed by SATYA CRUZ, STANISLAV ([id number]), map editor KARTHIK WORLEY ([id number]) on 12/01/2019 10:05:10 AM Referred By: Obdulio Valenzuela Confirmed By:STANISLAV HERNADEZ MD
--- NOTE | 2019-11-28 20:12 | ED.VIS.GEN ---
History of Present Illness Chief Complaint: Shortness of Breath Narrative: Patient presents with shortness of breath and generalized weakness. She tested positive for COVID 6 days ago. She is starting to feel short of breath 3 days ago. She denies fevers. Her has similar symptoms he is hospitalized with COVID. She has no nausea vomiting or abdominal pain. She is not hypoxic or has a history of hypoxia. Past Medical History - Allergies and Home Meds Allergies/Adverse Reactions: Allergies Antihistamines - Alkylamine Allergy (Severe, Verified 11/23/19 05:06) TACHYCARDIA REVIEWED ALL ALERGEN/ADVREAC ON 07-29-17 Antihistamines - Ethanolamine Allergy (Severe, Verified 11/23/19 05:06) TACHYCARDIA Antihistamines - Ethylenediamine Allergy (Severe, Verified 11/23/19 05:06) TACHYCARDIA Antihistamines - Piperazine Allergy (Severe, Verified 11/23/19 05:06) TACHYCARDIA Antihistamines - Piperidine Allergy (Severe, Verified 11/23/19 05:06) TACHYCARDIA diphenhydramine [From Benadryl] Allergy (Severe, Verified 11/23/19 05:06) TACHYCARDIA Primary Care Physician: Weston Tobar MD [Primary Care Provider] - Past Medical History: - - Hypertension, history of breast cancer, history of knee replacement. Surgical History: noncontributory, - Smoking Status: Current every day smoker - Family History Maternal Family History: Family History (Last Reviewed 09/10/19 @ 11:22 by Shira Garcia) Mother Heart disease Diabetes Arthritis Father Heart disease Family History: Reports: - - Maternal family history of arthritis, heart disease, diabetes. Paternal Family History: Family History (Last Reviewed 09/10/19 @ 11:22 by Shira Garcia) Mother Heart disease Diabetes Arthritis Father Heart disease Family History: Reports: - - Paternal family history of heart disease. Review of Systems All systems negative except as indicated General: Denies: Fever Eyes: Denies: Visual changes - bilaterally ENT: Denies: Rhinorrhea, Sore throat Cardiovascular: Denies: Chest pain Respiratory: Reports: Dyspnea, Cough. Denies: Sputum, Dyspnea on exertion Gastrointestinal: Reports: Nausea. Denies: Abdominal pain, Vomiting Genitourinary: Denies: Dysuria Musculoskeletal: Reports: Myalgias. Denies: Arthralgias, Neck pain, Back pain Neurological: Reports: - - Generalized weakness, no focal weakness. Denies: Headache Endocrine: Denies: Polyuria Hematologic: Denies: Easy bruising Allergy: Denies: Uticaria Physical Exam Vital Signs/Narrative: Vital Signs Temp Pulse Resp BP Pulse Ox 11/28/19 19:55 97.7 F L 86 26 H 127/71 H 96 11/28/19 19:52 97.7 F L 86 26 H 127/71 H 96 General: - - Patient appears in some distress but she is speaking in full sentences. Head: Normocephalic ENT: Moist mucous membranes Neck: Supple Cardiovascular: Regular rate, Regular rhythm Respiratory: - - Mostly clear breath sounds, some coarse breath sounds, she is not tachypneic. She is not hypoxic. She is on room air and speaking in full sentences. There are no retractions Abdomen: Soft Back: Nontender, Normal Inspection Extremities: Nontender, No edema. Negative for: Tenderness Skin: Normal color Neurological: Alert, Oriented x3 Diagnostic/Tx/Re-eval - Medical Decision Making Patient has an unremarkable ED work-up. She has no leukocytosis, she did not desaturate but when I try to ambulate her she felt quite lightheaded and weak. I did try to see if she can go home she tells me she is feeling too weak and too lightheaded and cannot go home tonight. I will call the hospitalist for admission. ED Disposition - Plan for ED Patient: Disposition: Acute Care Hospital [facility] Diagnosis: COVID-19 Referrals: Weston Tobar MD [Primary Care Provider] -
[2019-11-28 20:22] LABS: Absolute Lymphocyte Count 0.95 X10^3/uL (0.83-4.51); Absolute Neutrophil Count 3.4 X10^3/uL (2.0-7.7); Basophil# 0.01 X10^3/uL; Basophil% 0.2 % (0-1); Eosinophil# 0.01 X10^3/uL; Eosinophils% 0.2 % (0-5); Hematocrit 39.4 % (37-47); Hemoglobin 12.9 g/dL (12.0-15.0); Lymphocyte # 0.95 X10^3/ul (4.0); Lymphocyte % 19.5 % (19-41); Mean Corp Hgb Conc 32.7 g/dL (32-36); Mean Corpuscular Hgb 30.4 pg (27.0-32.0); Mean Corpuscular Volume 92.7 fL (81-99); Mean Platelet Vol. 11.2 fl (6.2-12.0); Monocyte# 0.44 X10^3/uL; NRBC Flagged by Analyzer 0 % (0-5); Neutrophil # 3.44 X10^3/uL (2.7-7.7); Neutrophil % 70.7 % (47-70); Platelet Count 169 K/mm3 (150-450); RBC Distribution Width SD 43.4 fl (35.1-43.9); Red Blood Count 4.25 M/mm3 (4.2-5.4); White Blood Count 4.9 K/mm3 (4.4-11.0)
[2019-11-28 20:32] LABS: International Normalized Ratio 0.9; Partial Thromboplast Time 25.1 Seconds (24.1-36.2); Prothrombin Time (Protime)PT. 12.1 SECONDS (11.7-14.9)
[2019-11-28 20:34] LABS: Squamous Epithelial Cells - UA 0 SEEN /hpf (5-10)
[2019-11-28 20:35] LABS: Color, Urine Yellow (Yellow); Glucose, Dipstick Normal (Normal); Ketone-Dipstick Negative (Negative); Leukocyte Esterase-Dipstick 25 /ul (Negative); Nitrite-Dipstick Negative (Negative); Occult Blood-Urine 25 /ul (Negative); Protein-Dipstick Negative (Negative); Specific Gravity, Urine 1.015 (1.002-1.030); Urine Bilirubin Dipstick Negative (Negative); Urine Clarity Clear (Clear); Urine Urobilinogen Normal (Normal)
[2019-11-28 20:41] LABS: AST(SGOT) 42 U/L (15-37); Alanine Aminotransfer ALT/SGPT 58 U/L (13-56); Albumin, Serum 3.4 g/dL (3.2-5.0); Alkaline Phosphatase 89 U/L (45-117); Anion Gap 4 (5-15); BUN 14 mg/dL (7-18); BUN/Creat Ratio 21.7 RATIO (10-20); Calcium,Total 8.3 mg/dL (8.5-10.1); Chloride 109 mmol/L (98-107); Creatinine, Serum 0.65 mg/dL (0.55-1.02); EST Glomerular Filtration Rate 96 mL/min (>60); Est Glom Filt Rate - Afr Amer 116 mL/min (>60); Estimated Creatinine Clearance 48.73 ml/min; Globulin 3.3 g/dL (2.2-4.2); Glucose 110 mg/dL (74-106); Potassium 3.3 mmol/L (3.5-5.1); Protein, Total 6.7 g/dL (6.4-8.2); Sodium Level 141 mmol/L (136-145)
[2019-11-28 20:43] LABS: Lactic Acid 1.3 mmol/L (0.4-1.9)
[2019-11-28 20:46] LABS: Bacteria 1+ /hpf (None Seen)
[2019-11-28 20:47] LABS: Mucous, Urine 1+ /hpf (<or=2+); Red Blood Cells-Urine 0-5 SEEN /hpf (0-5); White Blood Cells 0-5 SEEN /hpf (0-5)
[2019-11-28] MEDS: Ketorolac 15 MG/ML Vial IV (21:06)
--- NOTE | 2019-11-28 22:34 | HP.PCM_ITS ---
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 Comment: Left status post left IJ Port-A-Cath, which has been removed (9) Internal jugular (IJ) vein thromboembolism, acute Status: Inactive (10) Cancer of right female breast Status: Resolved Qualifiers: Breast location: central portion of breast Estrogen receptor status: positive Qualified Code(s): C50.111 - Malignant neoplasm of central portion of right female breast; Z17.0 - Estrogen receptor positive status [ER+] (11) Cough Status: Acute (12) Exertional dyspnea Status: Acute (13) Elevated d-dimer Status: Inactive (14) Chronic back pain Status: Chronic Qualifiers: Back pain location: back pain in unspecified location Back pain laterality: unspecified Qualified Code(s): M54.9 - Dorsalgia, unspecified; G89.29 - Other chronic pain (15) IBS (irritable bowel syndrome) Status: Chronic Qualifiers: Irritable bowel syndrome type: unspecified Qualified Code(s): K58.9 - Irritable bowel syndrome without diarrhea (16) GERD (gastroesophageal reflux disease) Status: Chronic Qualifiers: Esophagitis presence: esophagitis presence not specified Qualified Code(s): K21.9 - Gastro-esophageal reflux disease without esophagitis (17) Rheumatoid arthritis Status: Chronic Qualifiers: Rheumatoid arthritis location: unspecified site Rheumatoid factor presence: unspecified presence Qualified Code(s): M06.9 - Rheumatoid arthritis, unspecified (18) Anxiety and depression Status: Chronic (19) Pneumonia Status: Inactive (20) Sore throat Status: Inactive (21) Invasive ductal carcinoma of right breast Status: Chronic (22) Encounter for adjustment or management of vascular access device Status: Inactive (23) Educational circumstance Status: Inactive History of Present Illness Date of Admission: 11/28/19 Chief Complaint: SOB The patient is a 69 year old F with a significant history of rheumatoid arthritis; tobacco abuse; invasive ductal carcinoma of right breast status post mastectomy; and hypertension who presents to the emergency department with shortness of breath. Associated with her symptoms is wheezing; nonproductive cough; poor appetite; dysgeusia; change in sense of smell; fatigue and weakness. Also she reports a temperature of 100.2 Fahrenheit 3 days ago. Her symptoms started on 21 November 2019. She was diagnosed with COVID on 11/22/2019. Her is currently hospitalized at our hospital with COVID-19 infection. At the emergency department patient was not hypoxic. Her vitals was normal. However she was walked on the hallway and she reported weakness and lightheadedness. She thought she could not go home. Past Medical History Past Medical History (Chronic Problems): Chronic Problems (Last Reviewed 11/29/19 @ 01:[address] Obdulio Valenzuela MD) Tobacco abuse (Chronic) Vaginal dryness (Chronic) Hypertension (Chronic) Neck pain (Chronic) Osteoporosis (Chronic) Acute internal jugular vein thrombosis (Chronic) Left status post left IJ Port-A-Cath, which has been removed Chronic back pain (Chronic) IBS (irritable bowel syndrome) (Chronic) GERD (gastroesophageal reflux disease) (Chronic) Rheumatoid arthritis (Chronic) Anxiety and depression (Chronic) Invasive ductal carcinoma of right breast (Chronic) Medical History: Medical History (Last Reviewed 11/29/19 @ 01:[address] Obdulio Valenzuela MD) Neck pain (Chronic) M54.2 Acute internal jugular vein thrombosis (Chronic) I82.C19 Left status post left IJ Port-A-Cath, which has been removed Invasive ductal carcinoma of right breast (Chronic) C50.911 Encounter for adjustment or management of vascular access device (Acute) Z45.2 Arthritis M19.90 Back problem M53.9 Breast cancer, right C50.911 GERD (gastroesophageal reflux disease) K21.9 Hemorrhoids K64.9 IBS (irritable bowel syndrome) Rheumatoid arthritis M06.9 Allergies Antihistamines - Alkylamine Allergy (Severe, Verified 11/23/19 05:06) TACHYCARDIA REVIEWED ALL ALERGEN/ADVREAC ON 07-29-17 Antihistamines - Ethanolamine Allergy (Severe, Verified 11/23/19 05:06) TACHYCARDIA Antihistamines - Ethylenediamine Allergy (Severe, Verified 11/23/19 05:06) TACHYCARDIA Antihistamines - Piperazine Allergy (Severe, Verified 11/23/19 05:06) TACHYCARDIA Antihistamines - Piperidine Allergy (Severe, Verified 11/23/19 05:06) TACHYCARDIA diphenhydramine [From Benadryl] Allergy (Severe, Verified 11/23/19 05:06) TACHYCARDIA Home Medications: Ambulatory Orders Medication Instructions Recorded cholecalciferol (vitamin D3) 25 5,000 unit PO QDAY cap 06/13/17 mcg (1,000 unit) capsule denosumab 60 mg/mL subcutaneous 60 mg SC [id number] #1 ml 06/13/17 syringe Handicap Placard #1 ea 11/17/17 Ascorbic Acid [Vitamin C] 1,000 mg PO DAILY 05/29/18 Aspirin [Aspir 81] 81 mg PO DAILY 05/29/18 Anastrozole [Arimidex] 1 mg PO DAILY 90 Days #90 tab 06/01/19 amlodipine 5 mg tablet 5 mg PO QDAY #90 tab 09/10/19 escitalopram oxalate 5 mg tablet 5 mg PO QDAY #90 tab 09/10/19 losartan 25 mg tablet 25 mg PO DAILY #90 tab 09/10/19 Surgical History: Surgical History (Last Reviewed 11/29/19 @ 01:[address] Obdulio Valenzuela MD) H/O section Z98.891 History of appendectomy Z90.49 History of cholecystectomy Z90.49 History of lymph node dissection of right axilla Z98.890 History of reconstruction of right breast Z98.890 History of right total mastectomy Z90.11 11/15/16 History of total left knee replacement Z96.652 Surgical History: - Psychiatric History: Anxiety, Depression [employer] History: No pertinent [employer] history Smoking Status: Current every day smoker Tobacco Use: Cigarettes - *Family History Maternal Family History: Family History (Last Reviewed 11/29/19 @ 01:[address] Obdulio Valenzuela MD) Mother Heart disease Diabetes Arthritis Father Heart disease History Items: - - Maternal family history of arthritis, heart disease, diabetes. Paternal Family History: Family History (Last Reviewed 11/29/19 @ 01:[address] Obdulio Valenzuela MD) Mother Heart disease Diabetes Arthritis Father Heart disease History Items: - - Paternal family history of heart disease. Review of Systems Constitutional: Reports: Anorexia, Chills, Fever, Malaise, Weakness, Fatigue. Denies: Weight Change HEENT: Denies: Head Aches, Sinus Congestion, Sinus Drainage Cardiovascular: Reports: Light Headedness. Denies: Chest Pain, Palpitations Respiratory: Reports: Cough, Shortness of Breath. Denies: Sputum production Gastrointestinal: Denies: Abdominal Pain, Nausea, Vomiting Genitourinary: Denies: Dysuria Musculoskeletal: Denies: Joint Pain, Joint Tenderness Skin: Denies: Rash, Wounds Neurological: Denies: Numbness, Tingling, Focal weakness Psychiatric: Denies: Anxiety, Depression, Homicidal Ideations, Suicidal Ideations Hematologic/ Lymphatic: Denies: Easy Bruising, Easy Bleeding VTE Information - Inpt Only VTE Present on Admission: No VTE Mechan Device Prophylaxis: None VTE Pharm Prophylaxis ordered?: Yes Patient Problems: Active and Suspected Problems (Last Reviewed 11/29/19 @ 01:[address] Obdulio Valenzuela MD) COVID-19 (Acute) SARS-associated coronavirus infection (Acute) - Physical Exam Vitals/I&O's: Vital Signs Temp Pulse Resp BP Pulse Ox 97.4 F L 88 25 H 113/99 H 97 11/28/19 21:08 11/28/19 21:08 11/28/19 21:08 11/28/19 21:08 11/28/19 21:08 Oxygen Flow Rate (L/min) 2 Oxygen Delivery Method Room Air Weight: 58.967 kg Body Mass Index (BMI) 26.2 General: Alert, Oriented x3, Cooperative HEENT: Atraumatic, PERRLA, EOMI, Normocephalic Neck: Supple, No JVD, Negative Carotid Bruits Lungs: Rhonchi, Wheezes Cardiovascular: Regular rate, Normal S1, Normal S2, No murmurs Abdomen: Bowel Sounds Present, Soft, Non Tender Extremities: No edema, Capillary Refill Less than 3 Seconds Skin: No rashes, No breakdown Musculoskeletal: No Tenderness to Palpation of Joints or Extremities Neurological: Cranial nerves II-XII grossly intact Psych/Mental Status: Normal Affect, Appropriate Laboratory Results 11/28/19 20:05: WBC 4.9, RBC 4.25, Hgb 12.9, Hct 39.4, MCV 92.7, MCH 30.4, MCHC 32.7, RDW Std Deviation 43.4, RDW Coeff of Awa 13.0, Plt Count 169, MPV 11.2, Immature Gran % (Auto) 0.400, Neut % (Auto) 70.7 H, Lymph % (Auto) 19.5, Roberts % (Auto) 9.0, Eos % (Auto) 0.2, Baso % (Auto) 0.2, Absolute Neuts (auto) 3.4, Absolute Lymphs (auto) 0.95, Nucleated RBC % 0 11/28/19 20:05: PT 12.1, INR 0.9, APTT 25.1 11/28/19 20:05: Sodium 141, Potassium 3.3 L, Chloride 109 H, Carbon Dioxide 28.0, Anion Gap 4 L, BUN 14, Creatinine 0.65, Estim Creat Clear Calc 48.73, Est GFR (MDRD) Af Amer 116, Est GFR (MDRD) Non-Af 96, BUN/Creatinine Ratio 21.7 H, Glucose 110 H, Calcium 8.3 L, Total Bilirubin 0.30, AST 42 H, ALT 58 H, Alkaline Phosphatase 89, Total Protein 6.7, Albumin 3.4, Globulin 3.3, Albumin/Globulin Ratio 1.0 11/28/19 20:05: Lactic Acid 1.3 11/28/19 20:20: Urine Color Yellow, Urine Clarity Clear, Urine pH 6.0, Ur Specific [place] 1.015, Urine Protein Negative, Urine Glucose (UA) Normal, Urine Ketones Negative, Urine Occult Blood 25 H, Urine Nitrite Negative, Urine Bilirubin Negative, Urine Urobilinogen Normal, Ur Leukocyte Esterase 25 H, Urine RBC 0-5 SEEN, Urine WBC 0-5 SEEN, Ur Squamous Epith Cells 0 SEEN, Urine Bacteria 1+, Urine Mucus 1+ Assessment/Plan All Active Problems (Last Reviewed 11/29/19 @ 01:[address] Obdulio Valenzuela MD) COVID-19 (Acute) SARS-associated coronavirus infection (Acute) Cancer of right female breast (Resolved) Cough (Acute) Exertional dyspnea (Acute) The patient is a 69 year old F with a significant history of rheumatoid arthritis; tobacco abuse; invasive ductal carcinoma of right breast status post mastectomy; and hypertension who presents to the emergency department with shortness of breath; wheezing; nonproductive cough; poor appetite; dysgeusia; change in sense of smell; fever; fatigue; weakness; and was tested for COVID-19 infection. Acute bronchitis secondary to a COVID-19. Chest x-ray independent review did not show any acute cardiopulmonary process. Will start patient on dexamethasone IV. Scheduled DuoNeb) albuterol inhalation ordered. Will check a procalcitonin. Enhanced covid precautions. Mucinex for cough. Will admit patient to [facility] COVID unit and a consult bariatric program coordinator. Invasive ductal carcinoma of right breast status post mastectomy Arimidex continued Hypertension Blood pressure was elevated on presentation Amlodipine and losartan are continued Trend blood pressure and adjust blood pressure medication Osteoporosis On denosumab. Vitamin D continued. Depression/anxiety Lexapro continued. Tobacco abuse Counseled Declined nicotine patch. DVT prophylaxis Subcutaneous Lovenox per COVID-19 protocol. Inpatient E&M: [id number] Init Hosp L3
[2019-11-28] MEDS: guaiFENesin 1,200 MG Tablet 1200 MG PO (23:50)
[2019-11-28] MEDS: dexAMETHasone 10 MG/ML Vial 6 MG IV (23:50)
[2019-11-28] MEDS: 0.9% Saline Lock 10 ML Syringe IV (23:53)
[2019-11-29] VITALS (7 sets, daily range): BP systolic 118–125; BP diastolic 61–70; PULSE 75–86; RESP 18; TEMP 36.1–36.4; O2SAT 93–96
[2019-11-29 04:06] LABS: Absolute Lymphocyte Count 0.74 X10^3/uL (0.83-4.51); Absolute Neutrophil Count 3.8 X10^3/uL (2.0-7.7); Basophil# 0.01 X10^3/uL; Basophil% 0.2 % (0-1); Eosinophil# 0.01 X10^3/uL; Eosinophils% 0.2 % (0-5); Hematocrit 40.1 % (37-47); Hemoglobin 13.2 g/dL (12.0-15.0); Lymphocyte # 0.74 X10^3/ul (4.0); Lymphocyte % 15.7 % (19-41); Mean Corp Hgb Conc 32.9 g/dL (32-36); Mean Corpuscular Hgb 30.2 pg (27.0-32.0); Mean Corpuscular Volume 91.8 fL (81-99); Mean Platelet Vol. 10.9 fl (6.2-12.0); Monocyte# 0.14 X10^3/uL; NRBC Flagged by Analyzer 0 % (0-5); Neutrophil # 3.81 X10^3/uL (2.7-7.7); Neutrophil % 80.7 % (47-70); Platelet Count 169 K/mm3 (150-450); RBC Distribution Width CV 12.9 % (11.6-14.6); RBC Distribution Width SD 43.6 fl (35.1-43.9); Red Blood Count 4.37 M/mm3 (4.2-5.4); White Blood Count 4.7 K/mm3 (4.4-11.0)
[2019-11-29] MEDS: 0.9% Saline Lock 10 ML Syringe IV (04:13)
[2019-11-29 04:45] LABS: AST(SGOT) 36 U/L (15-37); Alanine Aminotransfer ALT/SGPT 60 U/L (13-56); Albumin, Serum 3.5 g/dL (3.2-5.0); Alkaline Phosphatase 90 U/L (45-117); Anion Gap 4 (5-15); BUN 14 mg/dL (7-18); BUN/Creat Ratio 24.3 RATIO (10-20); Calcium,Total 8.5 mg/dL (8.5-10.1); Chloride 108 mmol/L (98-107); Creatinine, Serum 0.58 mg/dL (0.55-1.02); EST Glomerular Filtration Rate 110 mL/min (>60); Est Glom Filt Rate - Afr Amer 133 mL/min (>60); Estimated Creatinine Clearance 50.08 ml/min; Globulin 3.5 g/dL (2.2-4.2); Glucose 154 mg/dL (74-106); Potassium 3.7 mmol/L (3.5-5.1); Sodium Level 140 mmol/L (136-145)
--- NOTE | 2019-11-29 07:21 | CON.PCM_ITS ---
Reason for Consult Date of Consultation: 11/29/19 Reason for Consultation: Acute coronavirus infection History of Present Illness: The patient is a 69-year-old female, with a history as outlined below, who presented to the emergency department on November 27 with complaints of shortness of breath, nonproductive cough, wheezing, generalized malaise, weakness and dizziness. Her is currently admitted to the hospital with coronavirus. The patient does have an extensive smoking history and continues to smoke 0.5 packs of cigarettes per day. She does not currently follow with a child care nurse, nor does utilize inhalers at her baseline. The patient's medical history is also significant for invasive ductal cell carcinoma of the right breast. On presentation to the emergency department, the patient was noted to be afebrile and hemodynamically stable. She was maintaining appropriate oxygen saturations on room air. Laboratory evaluation revealed a normal CBC with differential. Coagulation profile was within normal limits. Chemistry profile was unremarkable, with the exception of a potassium of 3.3. Lactate was within normal limits. Urine analysis was unremarkable. Plain film chest x-ray demonstrated no acute cardiopulmonary process. The patient was able to ambulate in the emergency department and maintain appropriate oxygen saturations. However, due to her report of weakness and dizziness, the decision was made to admit the patient to the hospital. Past Medical History Past Medical History (Chronic Problems): Chronic Problems (Last Reviewed 11/29/19 @ 01:[address] Obdulio Valenzuela MD) Tobacco abuse (Chronic) Vaginal dryness (Chronic) Hypertension (Chronic) Neck pain (Chronic) Osteoporosis (Chronic) Acute internal jugular vein thrombosis (Chronic) Left status post left IJ Port-A-Cath, which has been removed Chronic back pain (Chronic) IBS (irritable bowel syndrome) (Chronic) GERD (gastroesophageal reflux disease) (Chronic) Rheumatoid arthritis (Chronic) Anxiety and depression (Chronic) Invasive ductal carcinoma of right breast (Chronic) Medical History: Medical History (Last Reviewed 11/29/19 @ 01:[address] Obdulio Valenzuela MD) Neck pain (Chronic) M54.2 Acute internal jugular vein thrombosis (Chronic) I82.C19 Left status post left IJ Port-A-Cath, which has been removed Invasive ductal carcinoma of right breast (Chronic) C50.911 Encounter for adjustment or management of vascular access device (Inactive) Z45.2 Arthritis M19.90 Back problem M53.9 Breast cancer, right C50.911 GERD (gastroesophageal reflux disease) K21.9 Hemorrhoids K64.9 IBS (irritable bowel syndrome) Rheumatoid arthritis M06.9 Allergies Antihistamines - Alkylamine Allergy (Severe, Verified 11/23/19 05:06) TACHYCARDIA REVIEWED ALL ALERGEN/ADVREAC ON 07-29-17 Antihistamines - Ethanolamine Allergy (Severe, Verified 11/23/19 05:06) TACHYCARDIA Antihistamines - Ethylenediamine Allergy (Severe, Verified 11/23/19 05:06) TACHYCARDIA Antihistamines - Piperazine Allergy (Severe, Verified 11/23/19 05:06) TACHYCARDIA Antihistamines - Piperidine Allergy (Severe, Verified 11/23/19 05:06) TACHYCARDIA diphenhydramine [From Benadryl] Allergy (Severe, Verified 11/23/19 05:06) TACHYCARDIA Home Medications: Ambulatory Orders Medication Instructions Recorded cholecalciferol (vitamin D3) 25 5,000 unit PO QDAY cap 06/13/17 mcg (1,000 unit) capsule denosumab 60 mg/mL subcutaneous 60 mg SC [id number] #1 ml 06/13/17 syringe Handicap Placard #1 ea 11/17/17 Ascorbic Acid [Vitamin C] 1,000 mg PO DAILY 05/29/18 Aspirin [Aspir 81] 81 mg PO DAILY 05/29/18 Anastrozole [Arimidex] 1 mg PO DAILY 90 Days #90 tab 06/01/19 amlodipine 5 mg tablet 5 mg PO QDAY #90 tab 09/10/19 escitalopram oxalate 5 mg tablet 5 mg PO QDAY #90 tab 09/10/19 losartan 25 mg tablet 25 mg PO DAILY #90 tab 09/10/19 Albuterol IH (ProAir) [Proair Hfa] 1 puff INHALATION Q2H PRN PRN #1 11/29/19 inhaler Apixaban [Eliquis] 5 mg PO BID #30 tab 11/29/19 Azithromycin [Zithromax] 500 mg PO DAILY #5 tab 11/29/19 Dexamethasone 6 mg PO DAILY #10 tab 11/29/19 Guaifenesin [Mucinex] 1,200 mg PO BID #14 tab 11/29/19 Surgical History: Surgical History (Last Reviewed 11/29/19 @ 01:[address] Obdulio Valenzuela MD) H/O section Z98.891 History of appendectomy Z90.49 History of cholecystectomy Z90.49 History of lymph node dissection of right axilla Z98.890 History of reconstruction of right breast Z98.890 History of right total mastectomy Z90.11 11/15/16 History of total left knee replacement Z96.652 Surgical History: - Psychiatric History: Anxiety, Depression [employer] History: No pertinent [employer] history Smoking Status: Current every day smoker Tobacco Use: Cigarettes - *Family History Maternal Family History: Family History (Last Reviewed 11/29/19 @ 01:[address] Obdulio Valenzuela MD) Mother Heart disease Diabetes Arthritis Father Heart disease History Items: - - Maternal family history of arthritis, heart disease, diabetes. Paternal Family History: Family History (Last Reviewed 11/29/19 @ 01:[address] Obdulio Valenzuela MD) Mother Heart disease Diabetes Arthritis Father Heart disease History Items: - - Paternal family history of heart disease. Review of Systems Constitutional: Reports: Malaise, Weakness, Fatigue. Denies: Chills, Fever, Night Sweats Eyes: Denies: Blurred vision, Double vision HEENT: Denies: Head Aches, Sinus Congestion, Sinus Drainage Cardiovascular: Denies: Chest Pain, Palpitations Respiratory: Reports: Cough, Shortness of Breath, Wheezing. Denies: Sputum production Gastrointestinal: Denies: Abdominal Pain, Nausea, Vomiting Genitourinary: Denies: Dysuria Musculoskeletal: Denies: Joint Pain, Joint Tenderness Skin: Denies: Rash, Wounds Neurological: Denies: Numbness, Tingling, Focal weakness Psychiatric: Denies: Anxiety, Depression, Homicidal Ideations, Suicidal Ideations Hematologic/ Lymphatic: Denies: Easy Bruising, Easy Bleeding Patient Problems: Active and Suspected Problems (Last Reviewed 11/29/19 @ 01:[address] Obdulio Valenzuela MD) COVID-19 (Acute) SARS-associated coronavirus infection (Acute) Objective: The patient's most recent lab work, culture data and imaging studies have all been personally reviewed. Coronavirus PCR was positive on November 22. - Physical Exam Vitals/I&O's: Vital Signs Temp Pulse Resp BP Pulse Ox 97.6 F L 76 18 125/70 H 96 10/05/20 04:09 11/29/19 04:09 11/29/19 04:09 11/29/19 04:09 11/29/19 04:09 Oxygen Flow Rate (L/min) 2 Oxygen Delivery Method Room Air Weight: 133 lb 9.602 oz Body Mass Index (BMI) 26.9 Intake and Output for Last 24 Hours 11/27/19 11/28/19 11/29/19 23:59 23:59 23:59 Intake Total 240 / 240 240 / 240 Balance 240 / 240 240 / 240 General: Alert, Oriented x3, Cooperative, No apparent distress HEENT: Atraumatic, PERRLA, Normocephalic Oral: Moist Mucosa, No Gingival or Mucosal Lesions/ Ulcerations Neck: Supple, No Nodes, Trachea Midline Lungs: Diminished, Wheezes Cardiovascular: Regular rate, Regular Rhythm Abdomen: Bowel Sounds Present, Soft, Non Tender Extremities: No clubbing, No cyanosis, No edema Skin: No breakdown Musculoskeletal: No Tenderness to Palpation of Joints or Extremities, No Muscle Wasting Lymphatic: No Cervical, Supraclavicular, or Inguinal Adenopathy Neurological: Cranial nerves II-XII grossly intact, Neuro grossly intact Psych/Mental Status: Normal Affect, Appropriate Labs (Last 48 Hours) 11/28/19 11/28/19 11/28/19 20:05 20:05 20:05 WBC 4.9 RBC 4.25 Hgb 12.9 Hct 39.4 MCV 92.7 MCH 30.4 MCHC 32.7 RDW Std Deviation 43.4 RDW Coeff of Awa 13.0 Plt Count 169 MPV 11.2 Immature Gran % (Auto) 0.400 Neut % (Auto) 70.7 H Lymph % (Auto) 19.5 [place] % (Auto) 9.0 Eos % (Auto) 0.2 Baso % (Auto) 0.2 Absolute Neuts (auto) 3.4 Absolute Lymphs (auto) 0.95 Nucleated RBC % 0 PT 12.1 INR 0.9 APTT 25.1 Sodium 141 Potassium 3.3 L Chloride 109 H Carbon Dioxide 28.0 Anion Gap 4 L BUN 14 Creatinine 0.65 Estim Creat Clear Calc 48.73 Est GFR (MDRD) Af Amer 116 Est GFR (MDRD) Non-Af 96 BUN/Creatinine Ratio 21.7 H Glucose 110 H Lactic Acid Calcium 8.3 L Total Bilirubin 0.30 AST 42 H ALT 58 H Alkaline Phosphatase 89 Total Protein 6.7 Albumin 3.4 Globulin 3.3 Albumin/Globulin Ratio 1.0 Procalcitonin Urine Color Urine Clarity Urine pH Ur Specific [place] Urine Protein Urine Glucose (UA) Urine Ketones Urine Occult Blood Urine Nitrite Urine Bilirubin Urine Urobilinogen Ur Leukocyte Esterase Urine RBC Urine WBC Ur Squamous Epith Cells Urine Bacteria Urine Mucus 11/28/19 11/28/19 11/28/19 20:05 20:05 20:20 WBC RBC Hgb Hct MCV MCH MCHC RDW Std Deviation RDW Coeff of Awa Plt Count MPV Immature Gran % (Auto) Neut % (Auto) Lymph % (Auto) [place] % (Auto) Eos % (Auto) Baso % (Auto) Absolute Neuts (auto) Absolute Lymphs (auto) Nucleated RBC % PT INR APTT Sodium Potassium Chloride Carbon Dioxide Anion Gap BUN Creatinine Estim Creat Clear Calc Est GFR (MDRD) Af Amer Est GFR (MDRD) Non-Af BUN/Creatinine Ratio Glucose Lactic Acid 1.3 Calcium Total Bilirubin AST ALT Alkaline Phosphatase Total Protein Albumin Globulin Albumin/Globulin Ratio Procalcitonin Pending Urine Color Yellow Urine Clarity Clear Urine pH 6.0 Ur Specific [place] 1.015 Urine Protein Negative Urine Glucose (UA) Normal Urine Ketones Negative Urine Occult Blood 25 H Urine Nitrite Negative Urine Bilirubin Negative Urine Urobilinogen Normal Ur Leukocyte Esterase 25 H Urine RBC 0-5 SEEN Urine WBC 0-5 SEEN Ur Squamous Epith Cells 0 SEEN Urine Bacteria 1+ Urine Mucus 1+ 11/29/19 11/29/19 03:50 03:50 WBC 4.7 RBC 4.37 Hgb 13.2 Hct 40.1 MCV 91.8 MCH 30.2 MCHC 32.9 RDW Std Deviation 43.6 RDW Coeff of Awa 12.9 Plt Count 169 MPV 10.9 Immature Gran % (Auto) 0.200 Neut % (Auto) 80.7 H Lymph % (Auto) 15.7 L [place] % (Auto) 3.0 Eos % (Auto) 0.2 Baso % (Auto) 0.2 Absolute Neuts (auto) 3.8 Absolute Lymphs (auto) 0.74 L Nucleated RBC % 0 PT INR APTT Sodium 140 Potassium 3.7 Chloride 108 H Carbon Dioxide 28.0 Anion Gap 4 L BUN 14 Creatinine 0.58 Estim Creat Clear Calc 50.08 Est GFR (MDRD) Af Amer 133 Est GFR (MDRD) Non-Af 110 BUN/Creatinine Ratio 24.3 H Glucose 154 H Lactic Acid Calcium 8.5 Total Bilirubin 0.30 AST 36 ALT 60 H Alkaline Phosphatase 90 Total Protein 7.0 Albumin 3.5 Globulin 3.5 Albumin/Globulin Ratio 1.0 Procalcitonin Urine Color Urine Clarity Urine pH Ur Specific [place] Urine Protein Urine Glucose (UA) Urine Ketones Urine Occult Blood Urine Nitrite Urine Bilirubin Urine Urobilinogen Ur Leukocyte Esterase Urine RBC Urine WBC Ur Squamous Epith Cells Urine Bacteria Urine Mucus Clinical Impression(s) from Imaging Studies Chest X-Ray 11/28/19 20:07 IMPRESSION: No acute pulmonary findings. Electronically Signed: Rashard Cao MD at 21:04 EDT Tel , Service support , Current Medications Acetaminophen (Tylenol) 650 mg PO Q8H PRN PRN PRN Reason: Pain Score 1-10/Temp > 100.7 F Albuterol Sulfate (Proair Hfa (Sp) Surgery/Vent Pts) 1 puff INHALATION Q2H PRN PRN PRN Reason: SOB/WHEEZING Amlodipine Besylate (Norvasc) 5 mg PO DAILY [facility] Anastrozole (Arimidex) 1 mg PO DAILY [facility] Ascorbic Acid (Vitamin C) 1,000 mg PO DAILY [facility]) [facility] Cholecalciferol (Vitamin D (25mcg)) 5,000 unit PO DAILY [facility] Dexamethasone Sodium Phosphate (Decadron) 6 mg IV DAILY [facility] Last Admin: 11/28/19 23:50 Dose: 6 mg Documented by: Enoxaparin Sodium (Lovenox) 40 mg SC BID [facility] Escitalopram Oxalate (Lexapro) 5 mg PO DAILY [facility] Guaifenesin (Mucinex) 1,200 mg PO BID [facility] Last Admin: 11/28/19 23:50 Dose: 1,200 mg Documented by: Sodium Chloride () 250 mls @ 15 mls/hr IV .[id number] PRN PRN Reason: Saline Flush Sodium Chloride () 250 mls @ 15 mls/hr IV .[id number] PRN PRN Reason: Additional IVPB Infusion Losartan Potassium (Cozaar) 25 mg PO DAILY [facility] Melatonin (Melatonin) 3 mg PO QHS PRN PRN PRN Reason: INSOMNIA Miscellaneous Information (Pocket Chamber) 1 each INHALATION PRN PRN PRN Reason: with albuterol MDI Ondansetron HCl (Zofran) 4 mg IV Q8H PRN PRN PRN Reason: NAUSEA/VOMITING Senna/Docusate Sodium (Senokot-S, Niyah-Colace) 2 tablet PO BID PRN PRN PRN Reason: Constipation Sodium Chloride () 10 - 40 ml IV UD PRN PRN Reason: SALINE FLUSH Last Admin: 11/29/19 04:13 Dose: 20 ml Documented by: Assessment/Plan All Active Problems (Last Reviewed 11/29/19 @ 01:[address] Obdulio Valenzuela MD) COVID-19 (Acute) SARS-associated coronavirus infection (Acute) Cancer of right female breast (Resolved) Cough (Acute) Exertional dyspnea (Acute) RECOMMENDATIONS: 1. Continue scheduled bronchodilator therapy. Provide patient with prescription at discharge for duo nebs in her home environment. 2. Perform walking oximetry study this morning. 3. If the patient continues to maintain appropriate oxygen saturations with ambulation she can be discharged home. 4. Smoking cessation is strongly recommended. 5. The patient can follow-up in the pulmonary medicine clinic in 2 weeks for further work-up of her possible COPD. IMPRESSIONS: 1. Shortness of breath and cough Likely the sequelae of the patient's coronavirus infection, which was initially diagnosed on November 22. She does have an extensive smoking history and continues to smoke cigarettes daily. Therefore, the patient may have a component of underlying obstructive lung disease, which is in a state of exacerbation due to the aforementioned viral infection. Nevertheless, the patient is currently maintaining appropriate oxygen saturations on room air. She is afebrile without evidence of an elevated white blood cell count. At this time, I would recommend it be simply place her on scheduled bronchodilator therapy, which can be continued upon discharge from the hospital. If the patient is able to ambulate as she was yesterday without the need for supplemental oxygen, she can be discharged home with plans to continue to quarantine. Ideally, the patient should follow-up in the pulmonary medicine clinic in 2 weeks so that baseline PFTs can be obtained. 2. Tobacco dependency I personally spent 4 minutes discussing the deleterious effects of continued tobacco use with the patient, including modalities which could be utilized to achieve a smoke-free lifestyle. Nicotine replacement therapy can be offered to the patient while admitted to the hospital. 3. History of breast cancer/hypertension/depression/anxiety Complicates care, management, recovery and prognosis. Continue home medications as indicated. This note was generated with [employer] dictation software. It may contain incorrect words, spelling, and punctuation that were not noted in checking the note before signing. Inpatient E&M: 61468 Init Hosp L3 - Behavior Interventions Behavior Intervention: [id number] Smoking Cessation 3-10 min
--- NOTE | 2019-11-29 07:23 | PN_ITS ---
Patient Problems: Active and Suspected Problems (Last Reviewed 11/29/19 @ 01:[address] Obdulio Valenzuela MD) COVID-19 (Acute) SARS-associated coronavirus infection (Acute) Vitals/I&O's: Vital Signs Temp Pulse Resp BP Pulse Ox 97.6 F L 76 18 125/70 H 96 11/29/19 04:09 11/29/19 04:09 11/29/19 04:09 11/29/19 04:09 11/29/19 04:09 Oxygen Flow Rate (L/min) 2 Oxygen Delivery Method Room Air Weight: 60.6 kg Body Mass Index (BMI) 26.9 Intake and Output for Last 24 Hours 11/27/19 11/28/19 11/29/19 23:59 23:59 23:59 Intake Total 240 / 240 240 / 240 Balance 240 / 240 240 / 240 Laboratory Results 11/28/19 20:05: WBC 4.9, RBC 4.25, Hgb 12.9, Hct 39.4, MCV 92.7, MCH 30.4, MCHC 32.7, RDW Std Deviation 43.4, RDW Coeff of Awa 13.0, Plt Count 169, MPV 11.2, Immature Gran % (Auto) 0.400, Neut % (Auto) 70.7 H, Lymph % (Auto) 19.5, Real % (Auto) 9.0, Eos % (Auto) 0.2, Baso % (Auto) 0.2, Absolute Neuts (auto) 3.4, Absolute Lymphs (auto) 0.95, Nucleated RBC % 0 11/28/19 20:05: PT 12.1, INR 0.9, APTT 25.1 11/28/19 20:05: Sodium 141, Potassium 3.3 L, Chloride 109 H, Carbon Dioxide 28.0, Anion Gap 4 L, BUN 14, Creatinine 0.65, Estim Creat Clear Calc 48.73, Est GFR (MDRD) Af Amer 116, Est GFR (MDRD) Non-Af 96, BUN/Creatinine Ratio 21.7 H, Glucose 110 H, Calcium 8.3 L, Total Bilirubin 0.30, AST 42 H, ALT 58 H, Alkaline Phosphatase 89, Total Protein 6.7, Albumin 3.4, Globulin 3.3, Albumin/Globulin Ratio 1.0 11/28/19 20:05: Lactic Acid 1.3 11/28/19 20:05: Procalcitonin Pending 11/28/19 20:20: Urine Color Yellow, Urine Clarity Clear, Urine pH 6.0, Ur Specific [place] 1.015, Urine Protein Negative, Urine Glucose (UA) Normal, Urine Ketones Negative, Urine Occult Blood 25 H, Urine Nitrite Negative, Urine Bilirubin Negative, Urine Urobilinogen Normal, Ur Leukocyte Esterase 25 H, Urine RBC 0-5 SEEN, Urine WBC 0-5 SEEN, Ur Squamous Epith Cells 0 SEEN, Urine Bacteria 1+, Urine Mucus 1+ 11/29/19 03:50: WBC 4.7, RBC 4.37, Hgb 13.2, Hct 40.1, MCV 91.8, MCH 30.2, MCHC 32.9, RDW Std Deviation 43.6, RDW Coeff of Awa 12.9, Plt Count 169, MPV 10.9, Immature Gran % (Auto) 0.200, Neut % (Auto) 80.7 H, Lymph % (Auto) 15.7 L, Real % (Auto) 3.0, Eos % (Auto) 0.2, Baso % (Auto) 0.2, Absolute Neuts (auto) 3.8, Absolute Lymphs (auto) 0.74 L, Nucleated RBC % 0 11/29/19 03:50: Sodium 140, Potassium 3.7, Chloride 108 H, Carbon Dioxide 28.0, Anion Gap 4 L, BUN 14, Creatinine 0.58, Estim Creat Clear Calc 50.08, Est GFR (MDRD) Af Amer 133, Est GFR (MDRD) Non-Af 110, BUN/Creatinine Ratio 24.3 H, Glucose 154 H, Calcium 8.5, Total Bilirubin 0.30, AST 36, ALT 60 H, Alkaline Phosphatase 90, Total Protein 7.0, Albumin 3.5, Globulin 3.5, Albumin/Globulin Ratio 1.0 Current Medications Acetaminophen (Tylenol) 650 mg PO Q8H PRN PRN PRN Reason: Pain Score 1-10/Temp > 100.7 F Albuterol Sulfate (Proair Hfa (Sp) Surgery/Vent Pts) 1 puff INHALATION Q2H PRN PRN PRN Reason: SOB/WHEEZING Amlodipine Besylate (Norvasc) 5 mg PO DAILY [facility] Anastrozole (Arimidex) 1 mg PO DAILY [facility] Ascorbic Acid (Vitamin C) 1,000 mg PO DAILY [facility] Aspirin ([facility]) [facility] Cholecalciferol (Vitamin D (25mcg)) 5,000 unit PO DAILY [facility] Dexamethasone Sodium Phosphate (Decadron) 6 mg IV DAILY [facility] Last Admin: 11/28/19 23:50 Dose: 6 mg Documented by: Enoxaparin Sodium (Lovenox) 40 mg SC BID [facility] Escitalopram Oxalate (Lexapro) 5 mg PO DAILY [facility] Guaifenesin (Mucinex) 1,200 mg PO BID [facility] Last Admin: 11/28/19 23:50 Dose: 1,200 mg Documented by: Sodium Chloride () 250 mls @ 15 mls/hr IV .[id number] PRN PRN Reason: Saline Flush Sodium Chloride () 250 mls @ 15 mls/hr IV .[id number] PRN PRN Reason: Additional IVPB Infusion Losartan Potassium (Cozaar) 25 mg PO DAILY [facility] Melatonin (Melatonin) 3 mg PO QHS PRN PRN PRN Reason: INSOMNIA Miscellaneous Information (Pocket Chamber) 1 each INHALATION PRN PRN PRN Reason: with albuterol MDI Ondansetron HCl (Zofran) 4 mg IV Q8H PRN PRN PRN Reason: NAUSEA/VOMITING Senna/Docusate Sodium (Senokot-S, Niyah-Colace) 2 tablet PO BID PRN PRN PRN Reason: Constipation Sodium Chloride () 10 - 40 ml IV UD PRN PRN Reason: SALINE FLUSH Last Admin: 11/29/19 04:13 Dose: 20 ml Documented by: STROKE Vital Signs/Narrative: Vital Signs Temp Pulse Resp BP Pulse Ox 11/29/19 04:09 97.6 F L 76 18 125/70 H 96 Medical Necessity - Tobacco Use Smoking Status: Current every day smoker Tobacco Use: Cigarettes Assessment/Plan All Active Problems (Last Reviewed 11/29/19 @ 01:[address] Obdulio Valenzuela MD) COVID-19 (Acute) SARS-associated coronavirus infection (Acute) Cancer of right female breast (Resolved) Cough (Acute) Exertional dyspnea (Acute) Acute bronchitis secondary to a COVID-19. Invasive ductal carcinoma of right breast status post mastectomy Arimidex continued Hypertension Blood pressure was elevated on presentation Amlodipine and losartan are continued Trend blood pressure and adjust blood pressure medication Osteoporosis On denosumab. Vitamin D continued. Depression/anxiety Lexapro continued. Tobacco abuse Counseled Declined nicotine patch. DVT prophylaxis Subcutaneous Lovenox per COVID-19 protocol.
--- NOTE | 2019-11-29 08:42 | DCINST_ITS ---
- Discharge Diagnoses Current Active Problems: Current Active and Chronic Problems (Last Reviewed 11/29/19 @ 01:[address] Obdulio Valenzuela MD) COVID-19 (Acute) SARS-associated coronavirus infection (Acute) You will use the following diet at home:: No restrictions Your food should be the consistency of: Regular Call your doctor if you observe: Fever of 101 or Higher, Shortness of breath, Dizziness, Fainting spells, Chest pain, Calf discomfort Allergies/Adverse Reactions: Allergies Antihistamines - Alkylamine Allergy (Severe, Verified 11/23/19 05:06) TACHYCARDIA REVIEWED ALL ALERGEN/ADVREAC ON 07-29-17 Antihistamines - Ethanolamine Allergy (Severe, Verified 11/23/19 05:06) TACHYCARDIA Antihistamines - Ethylenediamine Allergy (Severe, Verified 11/23/19 05:06) TACHYCARDIA Antihistamines - Piperazine Allergy (Severe, Verified 11/23/19 05:06) TACHYCARDIA Antihistamines - Piperidine Allergy (Severe, Verified 11/23/19 05:06) TACHYCARDIA diphenhydramine [From Benadryl] Allergy (Severe, Verified 11/23/19 05:06) TACHYCARDIA Medications to take at Discharge cholecalciferol (vitamin D3) 25 mcg (1,000 unit) capsule 5,000 unit PO QDAY cap 06/13/17 denosumab 60 mg/mL subcutaneous syringe 60 mg SC [id number] #1 ml 06/13/17 Handicap Placard #1 ea 11/17/17 Ascorbic Acid [Vitamin C] 1,000 mg PO DAILY 05/29/18 Aspirin [Aspir 81] 81 mg PO DAILY 05/29/18 Anastrozole [Arimidex] 1 mg PO DAILY 90 Days #90 tab 06/01/19 amlodipine 5 mg tablet 5 mg PO QDAY #90 tab 09/10/19 escitalopram oxalate 5 mg tablet 5 mg PO QDAY #90 tab 09/10/19 losartan 25 mg tablet 25 mg PO DAILY #90 tab 09/10/19 Albuterol IH (ProAir) [Proair Hfa] 1 puff INHALATION Q2H PRN PRN #1 inhaler 11/29/19 Apixaban [Eliquis] 5 mg PO BID #30 tab 11/29/19 Azithromycin [Zithromax] 500 mg PO DAILY #5 tab 11/29/19 Dexamethasone 6 mg PO DAILY #10 tab 11/29/19 Guaifenesin [Mucinex] 1,200 mg PO BID #14 tab 11/29/19 The following prescriptions were given: Dexamethasone 6 mg PO DAILY #10 tab Transmission Status: Pending to [id number] Apixaban [Eliquis] 5 mg PO BID #30 tab Transmission Status: Pending to [facility] Guaifenesin [Mucinex] 1,200 mg PO BID #14 tab Transmission Status: Received by [id number] Albuterol IH (ProAir) [Proair Hfa] 1 puff INHALATION Q2H PRN PRN #1 inhaler PRN Reason: SOB/WHEEZING Transmission Status: Received by [id number] Azithromycin [Zithromax] 500 mg PO DAILY #5 tab Transmission Status: Pending to [facility] Primary Care Physician: Weston Tobar MD [Primary Care Provider] - Please follow up with your Primary Care Physician in: in 2 weeks Test Results: Test results from this visit will be discussed in further detail at your follow- up appointment, if applicable. Please Follow Up With: Antonio Judd DO When: in 2-3 weeks Proposed Discharge Date: 11/29/19
--- NOTE | 2019-11-29 08:48 | DS.PCM_ITS ---
Discharge Date and Diagnosis - Problem List Patient Problems: Active and Suspected Problems (Last Reviewed 11/29/19 @ 01:[address] Obdulio Valenzuela MD) COVID-19 (Acute) SARS-associated coronavirus infection (Acute) Date of Admission: 11/28/19 Date of Discharge: 11/29/19 - Primary Discharge Diagnosis Acute Problems: Active Problems (Last Reviewed 11/29/19 @ 01:[address] Obdulio Valenzuela MD) COVID-19 (Acute) SARS-associated coronavirus infection (Acute) - Secondary Discharge Diagnosis Chronic Problems: Chronic Problems (Last Reviewed 11/29/19 @ 01:[address] Obdulio Valenzuela MD) Tobacco abuse (Chronic) Vaginal dryness (Chronic) Hypertension (Chronic) Neck pain (Chronic) Osteoporosis (Chronic) Acute internal jugular vein thrombosis (Chronic) Left status post left IJ Port-A-Cath, which has been removed Chronic back pain (Chronic) IBS (irritable bowel syndrome) (Chronic) GERD (gastroesophageal reflux disease) (Chronic) Rheumatoid arthritis (Chronic) Anxiety and depression (Chronic) Invasive ductal carcinoma of right breast (Chronic) Hospital Course and Treatment Imaging Results: Clinical Impression(s) from Imaging Studies Chest X-Ray 11/28/19 20:07 IMPRESSION: No acute pulmonary findings. Electronically Signed: Rashard Cao MD at 21:04 EDT Tel , Service support , Summary of Care Provided: Patient is a 69-year-old lady admitted with progressive shortness of breath with wheezing and changes in smell. Been diagnosed with COVID-19 on 11/22/2019. Admitted to a monitored bed for further management 1. Acute bronchitis secondary to a COVID-19. - Admitted to a monitored bed managed with bronchodilator treatment, steroid as well as antibiotics. Patient did respond to treatment discharged home the day after admission with plans for patient to follow-up with her PCP and pulmonary medicine. Patient was prescribed Decadron, azithromycin, Eliquis for 2 weeks and a bronchodilator therapy in addition to her home regimen. She was instructed to come back to the ED if she develops shortness of breath chest pain and persistent fever. 2. Invasive ductal carcinoma of right breast status post mastectomy - on Arimidex continued 3. Hypertension - Blood pressure controlled, home medications continued with dose adjustment as needed 4. Osteoporosis - On denosumab and Vitamin D continued. 5. Depression/anxiety Lexapro continued. 6. Tobacco dependence - Counseled on cessation, offered nicotine patch for tobacco cravings 7. DVT prophylaxis Subcutaneous Lovenox per COVID-19 protocol. Patient Problems: Active and Suspected Problems (Last Reviewed 11/29/19 @ 01:[address] Obdulio lundberg MD) COVID-19 (Acute) SARS-associated coronavirus infection (Acute) - Physical Exam Vitals/I&O's: Vital Signs Temp Pulse Resp BP Pulse Ox 97.1 F L 78 18 118/61 94 11/29/19 08:44 11/29/19 08:44 11/29/19 08:44 11/29/19 08:44 11/29/19 08:44 Oxygen Flow Rate (L/min) 2 Oxygen Delivery Method Room Air Weight: 60.6 kg Body Mass Index (BMI) 26.9 Intake and Output for Last 24 Hours 11/27/19 11/28/19 11/29/19 23:59 23:59 23:59 Intake Total 240 / 240 240 / 240 Balance 240 / 240 240 / 240 General: Alert HEENT: Atraumatic Neck: Supple Lungs: Diminished Laboratory Results 11/28/19 20:05: WBC 4.9, RBC 4.25, Hgb 12.9, Hct 39.4, MCV 92.7, MCH 30.4, MCHC 32.7, RDW Std Deviation 43.4, RDW Coeff of Awa 13.0, Plt Count 169, MPV 11.2, Immature Gran % (Auto) 0.400, Neut % (Auto) 70.7 H, Lymph % (Auto) 19.5, [place] % (Auto) 9.0, Eos % (Auto) 0.2, Baso % (Auto) 0.2, Absolute Neuts (auto) 3.4, Absolute Lymphs (auto) 0.95, Nucleated RBC % 0 11/28/19 20:05: PT 12.1, INR 0.9, APTT 25.1 11/28/19 20:05: Sodium 141, Potassium 3.3 L, Chloride 109 H, Carbon Dioxide 28.0, Anion Gap 4 L, BUN 14, Creatinine 0.65, Estim Creat Clear Calc 48.73, Est GFR (MDRD) Af Amer 116, Est GFR (MDRD) Non-Af 96, BUN/Creatinine Ratio 21.7 H, Glucose 110 H, Calcium 8.3 L, Total Bilirubin 0.30, AST 42 H, ALT 58 H, Alkaline Phosphatase 89, Total Protein 6.7, Albumin 3.4, Globulin 3.3, Albumin/Globulin Ratio 1.0 11/28/19 20:05: Lactic Acid 1.3 11/28/19 20:05: Procalcitonin Pending 11/28/19 20:20: Urine Color Yellow, Urine Clarity Clear, Urine pH 6.0, Ur Specific Hobgood 1.015, Urine Protein Negative, Urine Glucose (UA) Normal, Urine Ketones Negative, Urine Occult Blood 25 H, Urine Nitrite Negative, Urine Bilirubin Negative, Urine Urobilinogen Normal, Ur Leukocyte Esterase 25 H, Urine RBC 0-5 SEEN, Urine WBC 0-5 SEEN, Ur Squamous Epith Cells 0 SEEN, Urine Bacteria 1+, Urine Mucus 1+ 11/29/19 03:50: WBC 4.7, RBC 4.37, Hgb 13.2, Hct 40.1, MCV 91.8, MCH 30.2, MCHC 32.9, RDW Std Deviation 43.6, RDW Coeff of Awa 12.9, Plt Count 169, MPV 10.9, Immature Gran % (Auto) 0.200, Neut % (Auto) 80.7 H, Lymph % (Auto) 15.7 L, [place] % (Auto) 3.0, Eos % (Auto) 0.2, Baso % (Auto) 0.2, Absolute Neuts (auto) 3.8, Absolute Lymphs (auto) 0.74 L, Nucleated RBC % 0 11/29/19 03:50: Sodium 140, Potassium 3.7, Chloride 108 H, Carbon Dioxide 28.0, Anion Gap 4 L, BUN 14, Creatinine 0.58, Estim Creat Clear Calc 50.08, Est GFR (MDRD) Af Amer 133, Est GFR (MDRD) Non-Af 110, BUN/Creatinine Ratio 24.3 H, Glucose 154 H, Calcium 8.5, Total Bilirubin 0.30, AST 36, ALT 60 H, Alkaline Phosphatase 90, Total Protein 7.0, Albumin 3.5, Globulin 3.5, Albumin/Globulin Ratio 1.0 Current Medications Acetaminophen (Tylenol) 650 mg PO Q8H PRN PRN PRN Reason: Pain Score 1-10/Temp > 100.7 F Albuterol Sulfate (Proair Hfa (Sp) Surgery/Vent Pts) 1 puff INHALATION Q2H PRN PRN PRN Reason: SOB/WHEEZING Amlodipine Besylate (Norvasc) 5 mg PO DAILY COUNT INCLUDES THE [facility] Anastrozole (Arimidex) 1 mg PO DAILY COUNT INCLUDES THE [facility] Ascorbic Acid (Vitamin C) 1,000 mg PO DAILY COUNT INCLUDES THE [facility] Cholecalciferol (Vitamin D (25mcg)) 5,000 unit PO DAILY COUNT INCLUDES THE [facility] Dexamethasone Sodium Phosphate (Decadron) 6 mg IV DAILY COUNT INCLUDES THE [facility] Last Admin: 11/28/19 23:50 Dose: 6 mg Documented by: Enoxaparin Sodium (Lovenox) 40 mg SC BID COUNT INCLUDES THE [facility] Escitalopram Oxalate (Lexapro) 5 mg PO DAILY COUNT INCLUDES THE [facility] Guaifenesin (Mucinex) 1,200 mg PO BID COUNT INCLUDES THE [facility] Last Admin: 11/28/19 23:50 Dose: 1,200 mg Documented by: Sodium Chloride () 250 mls @ 15 mls/hr IV .[id number] PRN PRN Reason: Saline Flush Sodium Chloride () 250 mls @ 15 mls/hr IV .[id number] PRN PRN Reason: Additional IVPB Infusion Losartan Potassium (Cozaar) 25 mg PO DAILY COUNT INCLUDES THE [facility] Melatonin (Melatonin) 3 mg PO QHS PRN PRN PRN Reason: INSOMNIA Miscellaneous Information (Pocket Chamber) 1 each INHALATION PRN PRN PRN Reason: with albuterol MDI Ondansetron HCl (Zofran) 4 mg IV Q8H PRN PRN PRN Reason: NAUSEA/VOMITING Senna/Docusate Sodium (Senokot-S, Niyah-Colace) 2 tablet PO BID PRN PRN PRN Reason: Constipation Sodium Chloride () 10 - 40 ml IV UD PRN PRN Reason: SALINE FLUSH Last Admin: 11/29/19 04:13 Dose: 20 ml Documented by: Discharge Diet: No Restrictions Discharge Activity: Return to Normal Activity Call your doctor if you observe: Fever of 101 or Higher, Shortness of breath, Dizziness, Fainting spells, Chest pain, Calf discomfort Home Medications: Medications to take at Discharge cholecalciferol (vitamin D3) 25 mcg (1,000 unit) capsule 5,000 unit PO QDAY cap 06/13/17 denosumab 60 mg/mL subcutaneous syringe 60 mg SC [id number] #1 ml 06/13/17 Handicap Placard #1 ea 11/17/17 Ascorbic Acid [Vitamin C] 1,000 mg PO DAILY 05/29/18 Aspirin [Aspir 81] 81 mg PO DAILY 05/29/18 Anastrozole [Arimidex] 1 mg PO DAILY 90 Days #90 tab 06/01/19 amlodipine 5 mg tablet 5 mg PO QDAY #90 tab 09/10/19 escitalopram oxalate 5 mg tablet 5 mg PO QDAY #90 tab 09/10/19 losartan 25 mg tablet 25 mg PO DAILY #90 tab 09/10/19 Albuterol IH (ProAir) [Proair Hfa] 1 puff INHALATION Q2H PRN PRN #1 inhaler 11/29/19 Apixaban [Eliquis] 5 mg PO BID #30 tab 11/29/19 Azithromycin [Zithromax] 500 mg PO DAILY #5 tab 11/29/19 Dexamethasone 6 mg PO DAILY #10 tab 11/29/19 Guaifenesin [Mucinex] 1,200 mg PO BID #14 tab 11/29/19 Following Prescriptions Were Given to Patient: Dexamethasone 6 mg PO DAILY #10 tab Transmission Status: Pending to [id number] Apixaban [Eliquis] 5 mg PO BID #30 tab Transmission Status: [facility] to [facility] Guaifenesin [Mucinex] 1,200 mg PO BID #14 tab Transmission Status: Received by [facility] Albuterol IH (ProAir) [Proair Hfa] 1 puff INHALATION Q2H PRN PRN #1 inhaler PRN Reason: SOB/WHEEZING Transmission Status: Received by [facility] Azithromycin [Zithromax] 500 mg PO DAILY #5 tab Transmission Status: Pending to [facility] Primary Care Physician: Weston Tobar MD [Primary Care Provider] - Please follow up with your Primary Care Physician in: in 2 weeks Please Follow Up With: Antonio Judd DO When: in 2-3 weeks Disposition: Home Minutes spent on discharge:: 35 Patient Condition:: Stable Medical Necessity - Tobacco Use Smoking Status: Current every day smoker Tobacco Use: Cigarettes Meaningful Use Info Meaningful Use Diagnoses (Choose all that apply): None applicable Inpatient E&M: 26805 Disch Hosp
--- NOTE | 2019-11-29 09:22 | CASEMGMT ---
CLINTON BEE assessment completed with patient via phone for initial transition planning/care coordination. CLINTON BEE introduced self and role at [facility], pt voices understanding. Care providers, pharmacy, and demographics verified. PCP: Dr. Tobar Specialists: Dr. Joseph (hx of breast CA, follows up q4-6 months) Preferred Pharmacy: [facility] [place] but gets her hormone tx from [facility] in [place] Insurance: [facility] Prescription Benefit: Yes LNOK: , Son Living Arrangements: with in a one story home with 4 steps to enter (handrail present). Transportation: Pt states she does not drive and her drives her to appointments. DME/HHC: Has a cane and walker available in the home if she would need them but does not use them regularly. Pt denies any other DME in home such as shower chairs, BSC, CPAP, nebulizers, or wheelchair. SNF: No previous stays HHC: Had s/p knee OR but does not recall the provider's name. Quarantine needs: Pt states she has a son who lives in the area who is able to obtain groceries or medications as needed. States she has been leaving a list and the money on the front step which the son picks up. Her son obtains the needed items and places them back on the door step for her to retrieve. Pt denies any other concerns with continued quarantine at discharge. Plan: Pt states she feels able to return home without services. Noted pt ambulating in room with one assist of nursing. Transportation home: Pt states she does not want her son to drive her home and place him at risk of blanche COVID. Pt's also hospitalized and not available at this time to transport. Pt states their car is at their home. Will investigate options. Wilfrido aRmsey RN CM
[2019-11-29] MEDS: Anastrozole 1 MG Tablet PO (10:10)
[2019-11-29] MEDS: Ascorbic Acid 500 MG Tablet 1000 MG PO (10:10)
[2019-11-29] MEDS: Escitalopram Oxalate 10 MG Tablet 5 MG PO (10:11)
[2019-11-29] MEDS: amLODIPine 5 MG Tablet PO (10:11)
[2019-11-29] MEDS: Losartan Potassium 25 MG Tablet PO (10:11)
[2019-11-29] MEDS: Aspirin E.C. 81 MG Tablet PO (10:12)
[2019-11-29] MEDS: Enoxaparin 40 MG/0.4 ML Syringe SC (10:12)
[2019-11-29] MEDS: dexAMETHasone 10 MG/ML Vial 6 MG IV (10:12)
--- NOTE | 2019-11-29 10:26 | CASEMGMT ---
Addendum entered by Alysa Bustillos 11/29/19 13:29: Call to Kaye in pharmacy and she states pt's total for meds is $47.49 at this time and pt preferred that this RN CM call (also pt in ICU) to update and for payment. Pt/ are both to be discharged today and transportation is set up at 1430 thru [facility]. Chris ALONZO aware of all, voices understanding. Original Note: Pt to be sent home on Eliquis at discharge and meds were initially sent to [facility] pharmacy. Per pt/, they would prefer meds be transferred here to [facility] so that they can just take them home at discharge. Call to Kaye in [facility] retail pharmacy and she is updated to transfer meds to [facility] at this time. Pt is concerned about cost so this RN CM will call later to check on out of pocket for pt's meds. Eliquis card will be applied. SStkemar ALONZO CM
--- NOTE | 2019-11-29 10:34 | PHA.DC.MC ---
Pharmacy Service has performed discharge medication reconciliation and counseling for this patient. The patient's discharge medication list was reviewed for discrepancies and discrepancies were resolved. The patient was counseled on the following discharge medications and changes in medications for homegoing were reviewed. Albuterol IH (ProAir) [Proair Hfa] 1 puff INHALATION Q2H PRN PRN #1 inhaler 11/29/19 Apixaban [Eliquis] 5 mg PO BID #30 tab 11/29/19 Azithromycin [Zithromax] 500 mg PO DAILY #5 tab 11/29/19 Dexamethasone 6 mg PO DAILY #10 tab 11/29/19 Guaifenesin [Mucinex] 1,200 mg PO BID #14 tab 11/29/19 The Reason for Use, instructions for use, and potential side effects were reviewed for all new medications. The patient's questions regarding all of their medications were answered. The patient demonstrated some understanding but would benefit from further education and reinforcement. Home Medications cholecalciferol (vitamin D3) 25 mcg (1,000 unit) capsule 5,000 unit PO QDAY cap 06/13/17 denosumab 60 mg/mL subcutaneous syringe 60 mg SC [id number] #1 ml 06/13/17 Handicap Placard #1 ea 11/17/17 Ascorbic Acid [Vitamin C] 1,000 mg PO DAILY 05/29/18 Aspirin [Aspir 81] 81 mg PO DAILY 05/29/18 Anastrozole [Arimidex] 1 mg PO DAILY 90 Days #90 tab 06/01/19 amlodipine 5 mg tablet 5 mg PO QDAY #90 tab 09/10/19 escitalopram oxalate 5 mg tablet 5 mg PO QDAY #90 tab 09/10/19 losartan 25 mg tablet 25 mg PO DAILY #90 tab 09/10/19 Albuterol IH (ProAir) [Proair Hfa] 1 puff INHALATION Q2H PRN PRN #1 inhaler 11/29/19 Apixaban [Eliquis] 5 mg PO BID #30 tab 11/29/19 Azithromycin [Zithromax] 500 mg PO DAILY #5 tab 11/29/19 Dexamethasone 6 mg PO DAILY #10 tab 11/29/19 Guaifenesin [Mucinex] 1,200 mg PO BID #14 tab 11/29/19 The patient's discharge medication list was reviewed for discrepancies and discrepancies were resolved.
--- NOTE | 2019-11-30 14:50 | CASEMGMT ---
CLINTON CM DC PHONE CALL DC DATE: 11/29/2019 DC DISPOSITION: Home DC DIAGNOSIS: COVID-19 LACE/STRATA: 11/26 F/U APPTS MADE PRIOR TO DC: NO PRESCRIPTIONS ACQUIRED BY PT: yes Attempted call to listed phone. No answer and no messaging available.
[2019-11-30 17:02] LABS: Procalcitonin 0.15 ng/mL (0.00-0.09)
== END 2019-11-29 14:45 | disposition home or self-care (01) | DRG 179 ==
LOC: ED 22:34 → ICU 22:46
PROVIDERS: Admitting Provider Hospitalist; Emergency Provider Emergency Medicine; PCP Internal Medicine; Referring Provider Hospitalist; Visit Provider Internal Medicine
DX: U07.1 COVID-19 (principal); J20.8 Acute bronchitis due to other specified organisms; I10 Essential (primary) hypertension; Z86.718 Personal history of other venous thrombosis and embolism; K21.9 Gastro-esophageal reflux disease without esophagitis; M06.9 Rheumatoid arthritis, unspecified; Z79.899 Other long term (current) drug therapy; F17.210 Nicotine dependence, cigarettes, uncomplicated; Z90.11 Acquired absence of right breast and nipple; M81.0 Age-related osteoporosis without current pathological fracture; F32.9 Major depressive disorder, single episode, unspecified; F41.9 Anxiety disorder, unspecified; C50.911 Malignant neoplasm of unspecified site of right female breast
CPT/HCPCS: 71045; 80053; 81001; 83605; 84145; 85025; 85610; 85730; 87040; 87086; 87088; 87186; 93005; 94640; 99285; J7040; A4216

== ENCOUNTER → 2019-12-09 | Outpatient (CLI) | payer MEDICARE, SELFPAY ==
[2018-02-09 10:47] VITALS: BMI 24.4
== END | disposition home or self-care (01) ==
LOC: MTDU 12-14 14:47
PROVIDERS: PCP Internal Medicine; Referring Provider Internal Medicine; Visit Provider Internal Medicine
DX: U07.1 COVID-19 (principal)
CPT/HCPCS: 87635; C9803; U0003

== ENCOUNTER → 2019-12-28 10:23 | Outpatient (CLI) | payer MEDICARE, SELFPAY ==
[2018-02-09 10:47] VITALS: BMI 24.4
== END ==
LOC: MTDU 10:23
PROVIDERS: PCP Internal Medicine; Referring Provider Internal Medicine; Visit Provider Internal Medicine
DX: U07.1 COVID-19 (principal)
CPT/HCPCS: 87635; C9803; U0003

== ENCOUNTER → 2020-01-14 09:49 | Outpatient (CLI) | payer MEDICARE, SELFPAY ==
[2018-02-09 10:47] VITALS: BMI 24.4
--- NOTE | 2020-01-14 09:53 | VDLE_ITS ---
Reason For Study: BLE EDEMA RIGHT LEFT GSV is normal. GSV is normal. CFV is compressible, spontaneous, phasic, CFV is compressible, spontaneous, phasic, competent and demonstrates normal competent, and demonstrates normal augmentation. augmentation. FV is compressible, spontaneous, phasic, FV is compressible, spontaneous, phasic, competent and demonstrates normal competent and demonstrates normal augmentation. augmentation. POP V is compressible, spontaneous, phasic, POP V is compressible, spontaneous, phasic, competent and demonstrates normal competent and demonstrates normal augmentation. augmentation. T/P Trunk is compressible. T/P Trunk is compressible. PTV is compressible. PTV is compressible. RT PerV is compressible. LT PerV is compressible. Procedure This is a venous duplex using B-mode, color flow and spectral Doppler. Exam performed in department. The study was technically difficult. BLE EDEMA R>L, RLE TENDER TO TOUCH, difficulty tolerating compressions. A preliminary report was called and/or faxed to Dhiraj Snyder @ [phone] @ 10:45am. Interpretation Summary Deep veins of the lower extremities are bilaterally patent and compressible segmentally. There is no evidence of deep vein thrombosis on either side. Valvular competence appears intact within the proximal deep venous systems bilaterally. The great saphenous veins appear bilaterally patent and compressible segmentally. Ordering Physician: Dhiraj Jean Referring Physician: Weston Aguilera Performed By: Slime Muro, OSCAR, RVT
== END ==
LOC: CVS 09:51
PROVIDERS: PCP Internal Medicine; Referring Provider Nurse Practitioner Family; Visit Provider Nurse Practitioner Family
DX: R60.0 Localized edema (principal)
CPT/HCPCS: 93970

== ENCOUNTER → 2020-02-08 14:02 | Outpatient (CLI) | payer MEDICARE, SELFPAY ==
[2018-02-09 10:47] VITALS: BMI 24.4
[2019-09-10 11:24] VITALS: BMI 27.8
--- NOTE | 2020-02-08 14:13 | CT_ITS ---
STUDY: LOW DOSE CT LUNG CANCER SCREENING REASON FOR EXAM: Female, 70 years old. SMOKER X 55 YEARS. 1 PACK EVERY 2 DAYS. HX OF HTN. HX OF BREAST CA RADIATION DOSAGE (If Supplied By Facility): CTDIvol = ( 1.70 ) mGy, DLP = ( 59.86 ) mGycm TECHNIQUE: No contrast was administered. Low dose technique was utilized (average mAS-38 and kVp 120). 1.25 mm axial source images with a slice interval of 1.25-mm were reconstructed in lung windows. 2.5 mm axial source images with a slice interval of 2.5-mm were reconstructed in lung windows. 5.0 mm axial source images with a slice interval of 5.0-mm were reconstructed in soft tissue windows. Nodule measured using lung windows on PACS and/or independent workstation with automated measurement of minimum and maximum diameter. Nodule measurement reported as average diameter rounded to the nearest whole number. Growth is defined as an increase ins size of greater than 1.5 mm. COMPARISON: Comparison is made with prior study dated 12/08/2018. Surgical clips are seen in the right axillary region. The patient is status post right mastectomy. NODULES: No suspicious nodules are seen. Emphysema: Stable scarring in the lung apices more prominent on the right side. Minimal increased markings in the lateral aspect of the left upper lobe adjacent to the left major fissure as seen on axial image #98. This is suggestive of focal scarring. Minimal increased linear markings at the left lung base suggestive of scarring. Aorta: Atherosclerotic calcification. Coronary arteries: Coronary artery calcifications. Mediastinal nodes: Small mediastinal lymph nodes. Other chest and abdominal findings: Degenerative changes of the thoracic spine. CT/Low Dose CT Lung Screening IMPRESSION: Lung-RADS category 2 - Continue annual screening with LDCT in 12 months. IMPORTANT NOTES FOR USE: ACR Lung-RADS Version 1.0 Assessment Categories Release Date: June 21, 2013 Category: Coded 0-4 bases on nodule(s) with highest degree of suspicion. Negative screen is defined as categories 1 and 2; a positive screen is defined as categories 3 and 4. Category 3 and 4A nodules that are unchanged on interval CT should be coded as category 2, and individuals returned to screening in 12 months. Category 4X: Category 3 or 4 nodules with additional imaging findings that increase the suspicion of lung cancer, such as spiculation, GGN that doubles in size in 1 year, enlarged lymph notes, etc. Category Modifiers: S (significant finding unrelated to lung cancer) and C (prior history of treated lung cancer) may be added to the 0-4 Lung-RADS Electronically Signed: Channing Villanueva, at 14:36 EST , Service support ,
== END ==
PROVIDERS: PCP Internal Medicine; Referring Provider Nurse Practitioner Family; Visit Provider Nurse Practitioner Family
DX: F17.210 Nicotine dependence, cigarettes, uncomplicated (principal); Z12.2 Encounter for screening for malignant neoplasm of respiratory organs
CPT/HCPCS: G0297

== ENCOUNTER → 2020-03-17 11:41 | Outpatient (CLI) | payer MEDICARE, SELFPAY ==
[2018-02-09 10:47] VITALS: BMI 24.4
[2020-03-17 11:04] VITALS: BMI 26.4
[2020-03-17 15:18] LABS: Absolute Lymphocyte Count 1.79 X10^3/uL (0.83-4.51); Absolute Neutrophil Count 4.6 X10^3/uL (2.0-7.7); Basophil# 0.03 X10^3/uL; Basophil% 0.4 % (0-1); Eosinophil# 0.07 X10^3/uL; Hematocrit 45.9 % (37-47); Hemoglobin 14.9 g/dL (12.0-15.0); Lymphocyte # 1.79 X10^3/ul (4.0); Lymphocyte % 25.6 % (19-41); Mean Corp Hgb Conc 32.5 g/dL (32-36); Mean Corpuscular Hgb 29.6 pg (27.0-32.0); Mean Corpuscular Volume 91.3 fL (81-99); Mean Platelet Vol. 11.5 fl (6.2-12.0); Monocyte# 0.45 X10^3/uL; Monocyte% 6.4 % (0-10); NRBC Flagged by Analyzer 0 % (0-5); Neutrophil # 4.63 X10^3/uL (2.7-7.7); Neutrophil % 66.2 % (47-70); Platelet Count 250 K/mm3 (150-450); RBC Distribution Width CV 12.6 % (11.6-14.6); RBC Distribution Width SD 41.9 fl (35.1-43.9); Red Blood Count 5.03 M/mm3 (4.2-5.4)
[2020-03-17 16:01] LABS: ALB/GLOB Ratio 1.1 RATIO (0.9-2.4); AST(SGOT) 16 U/L (15-37); Alanine Aminotransfer ALT/SGPT 30 U/L (13-56); Albumin, Serum 3.9 g/dL (3.2-5.0); Alkaline Phosphatase 90 U/L (45-117); Anion Gap 8 (5-15); BUN 17 mg/dL (7-18); BUN/Creat Ratio 22.3 RATIO (10-20); Calcium,Total 9.5 mg/dL (8.5-10.1); Chloride 100 mmol/L (98-107); Creatinine, Serum 0.76 mg/dL (0.55-1.02); EST Glomerular Filtration Rate 79 mL/min (>60); Est Glom Filt Rate - Afr Amer 96 mL/min (>60); Globulin 3.4 g/dL (2.2-4.2); Glucose 95 mg/dL (74-106); Potassium 3.2 mmol/L (3.5-5.1); Protein, Total 7.3 g/dL (6.4-8.2); Sodium Level 137 mmol/L (136-145)
== END ==
PROVIDERS: PCP Internal Medicine; Referring Provider Internal Medicine; Visit Provider Internal Medicine
DX: Z01.818 Encounter for other preprocedural examination (principal)
CPT/HCPCS: 36415; 80053; 85025

== ENCOUNTER → 2020-03-24 14:45 | Outpatient (CLI) | payer MEDICARE, SELFPAY ==
[2018-02-09 10:47] VITALS: BMI 24.4
[2020-03-13 13:17] VITALS: BMI 26.9
[2020-03-17 11:04] VITALS: BMI 26.4
--- NOTE | 2020-03-24 14:59 | CT_ITS ---
STUDY: CT RIGHTLOWER EXTREMITY WITHOUT CONTRAST REASON FOR EXAM: Female, 70 years old. Right knee osteoarthritis, templating for Makoplasty. RADIATION DOSAGE (If Supplied By Facility): CTDIvol = ( 18.42 ) mGy, DLP = ( 1140.14 ) mGycm TECHNIQUE: Thin section transaxial imaging of the ankle was obtained, with sagittal and coronal reconstructed images. Individualized dose optimization techniques were used for this CT. COMPARISON: Right knee x-ray dated March 13, 2020 Hip findings: Normal visualized femur from the hip joint to the knee joint. There is mild to moderate axial narrowing of the right hip joint. A benign bone island is present in the far anterior and central aspect of the right femoral head. No visualized fracture or avascular necrosis. No malignant lesions are seen. Knee findings: There is severe narrowing in the medial compartment of the knee and mild cortical osteophyte formation osteoarthritis. Normal proximal tibiofibular articulation. There is no joint effusion. The lateral compartment spaces preserved. There is mild narrowing of the patellofemoral compartment and osteoarthritis. A small joint effusion is present. The quadriceps tendon is grossly normal. The patellar tendon is grossly normal. Normal Hoffa''s fat pad. The soft tissues are unremarkable. Ankle findings: Normal visualized distal tibia and fibula. Normal tibiotalar articulation and talar dome. Normal talus, calcaneus, navicular and cuboid tarsal bones. Normal subtalar, talonavicular and calcaneocuboid articulations. Normal navicular-cuneiform, cuneiform tarsal bones and intercuneiform articulations. Normal tarsometatarsal articulations and visualized metatarsi. The soft tissue structures are grossly normal. CT/Extremity Lower without Contra IMPRESSION: 1. Severe narrowing of the medial compartment of the knee joint. 2. No fracture or suspicious abnormalities seen in the right lower extremity. Electronically Signed: Ramo Ortega MD at 21:18 EST , Service support ,
== END ==
LOC: CT 14:47
PROVIDERS: PCP Internal Medicine; Visit Provider Orthopaedic Surgery
DX: M17.11 Unilateral primary osteoarthritis, right knee (principal)
CPT/HCPCS: 73700

== ENCOUNTER 2020-04-04 15:32 | Observation (INO) | payer MEDICARE, SELFPAY ==
[2018-02-09 10:47] VITALS: BMI 24.4
[2020-03-13 13:17] VITALS: BMI 26.9
[2020-03-17 11:04] VITALS: BMI 26.4
--- NOTE | 2020-03-28 11:17 | EKG12_ITS ---
Test Reason : PRE SURGERY Blood Pressure : / mmHG Vent. Rate : 075 BPM Atrial Rate : 075 BPM P-R Int : 184 ms QRS Dur : 074 ms QT Int : 404 ms P-R-T Axes : 057 053 018 degrees QTc Int : 451 ms Normal sinus rhythm Normal ECG Confirmed by GARRETT CRUZ, BECCA ([id number]), commissioning editor DAY FARR ([id number]) on 03/29/2020 9:14:44 AM Referred By: Obdulio Zuleta Confirmed By:BECCA TUCKER MD
--- NOTE | 2020-03-28 11:20 | RAD_ITS ---
STUDY: X-RAY CHEST REASON FOR EXAM: Female, 70 years old. No chest complaints, pre op eval for knee surgery TECHNIQUE: PA and lateral views of the chest. COMPARISON: Comparison is made with prior examination dated 11/28/2019. FINDINGS: Surgical clips are seen in the right axillary region. Status post right mastectomy. The lungs are clear and expanded. There is no demonstrated pleural abnormality. Normal size heart. Normal mediastinum and wil. Normal visualized pulmonary arteries. There is atherosclerotic calcification of the aortic arch with tortuosity. Normal visualized thoracic spine. Normal visualized ribs, clavicles, and shoulders. There is no demonstrated abnormality of the visualized soft tissue structures of the upper abdomen. RAD/Chest PA and Lateral IMPRESSION: No acute abnormality is seen. Electronically Signed: Channing Villanueva MD at 12:43 EST , Service support ,
[2020-03-28 13:03] LABS: Prothrombin Time (Protime)PT. 12.2 SECONDS (11.7-14.9)
[2020-03-28 13:04] LABS: Partial Thromboplast Time 24.9 Seconds (24.1-36.2)
[2020-03-28 13:18] LABS: Magnesium 2.3 mg/dL (1.6-2.6)
[2020-03-28 13:19] LABS: Anion Gap 7 (5-15); BUN 13 mg/dL (7-18); BUN/Creat Ratio 17.5 RATIO (10-20); Calcium,Total 9.5 mg/dL (8.5-10.1); Chloride 102 mmol/L (98-107); Creatinine, Serum 0.74 mg/dL (0.55-1.02); EST Glomerular Filtration Rate 82 mL/min (>60); Est Glom Filt Rate - Afr Amer 99 mL/min (>60); Glucose 97 mg/dL (74-106); Potassium 3.4 mmol/L (3.5-5.1); Sodium Level 139 mmol/L (136-145)
[2020-03-29 08:24] LABS: Fructosamine 224 umol/L (0-285)
[2020-04-04] VITALS (10 sets, daily range): BP systolic 107–137; BP diastolic 56–77; PULSE 65–90; RESP 16–18; TEMP 36.3–36.7; O2SAT 94–100; BMI 28.7
[2020-04-04] MEDS: Acetaminophen 500 MG Tablet 1000 MG PO ×2 (10:43→21:41)
[2020-04-04] MEDS: Celecoxib 200 MG Capsule 400 MG PO (10:43)
[2020-04-04] MEDS: Gabapentin 600 MG Tablet PO (10:44)
[2020-04-04 11:26] LABS: Bedside Glucose 86 mg/dL (70-110)
--- NOTE | 2020-04-04 13:21 | HP.PCM_ITS ---
History and Physical Date of Admission: 04/04/20 Intake Vital Signs 03/13/20 Height 4 ft 11 in 03/13/20 Weight: 133 lb Intake Visit Reasons: Bilat knees Chief Complaint: BL knees Accompanied by: self Is patient in pain?: Yes Allergies Antihistamines - Alkylamine Allergy (Severe, Verified 02/09/20 14:25) TACHYCARDIA Antihistamines - Ethanolamine Allergy (Severe, Verified 02/09/20 14:25) TACHYCARDIA Antihistamines - Ethylenediamine Allergy (Severe, Verified 02/09/20 14:25) TACHYCARDIA Antihistamines - Piperazine Allergy (Severe, Verified 02/09/20 14:25) TACHYCARDIA Antihistamines - Piperidine Allergy (Severe, Verified 02/09/20 14:25) TACHYCARDIA diphenhydramine [From Benadryl] Allergy (Severe, Verified 02/09/20 14:25) TACHYCARDIA Medications cholecalciferol (vitamin D3) 25 mcg (1,000 unit) capsule 5,000 unit PO QDAY cap 06/13/17 [History Confirmed 03/13/20] denosumab 60 mg/mL subcutaneous syringe 60 mg SC [id number] #1 ml 06/13/17 [Rx Confirmed 03/13/20] Handicap Placard #1 ea 11/17/17 [Rx Confirmed 03/13/20] Ascorbic Acid [Vitamin C] 1,000 mg PO DAILY 05/29/18 [History Confirmed 03/13/20] Aspirin [Aspir 81] 81 mg PO DAILY 05/29/18 [History Confirmed 03/13/20] Anastrozole [Arimidex] 1 mg PO DAILY 90 Days #90 tab 06/01/19 [Rx Confirmed 03/13/20] escitalopram oxalate 5 mg tablet 5 mg PO QDAY #90 tab 09/10/19 [Rx Confirmed 03/13/20] losartan 25 mg tablet 25 mg PO DAILY #90 tab 09/10/19 [Rx Confirmed 03/13/20] amlodipine 2.5 mg tablet 2.5 mg PO QDAY #90 tab 01/11/20 [Rx Confirmed 03/13/20] [place] Protectrice See Rx Instructions .ROUTE .MEDSUPPLY #200 ea 02/01/20 [Rx Confirmed 03/13/20] furosemide 20 mg tablet 20 mg PO DAILY #30 tab 02/01/20 [Rx Confirmed 03/13/20] tramadol 50 mg tablet 50 mg PO BID PRN #20 tab 02/01/20 [Rx Confirmed 03/13/20] PFSH Medical History Neck pain (Chronic) Acute internal jugular vein thrombosis (Chronic) Invasive ductal carcinoma of right breast (Chronic) Encounter for adjustment or management of vascular access device (Inactive) Arthritis (Acute) Back problem (Acute) Breast cancer, right (Acute) GERD (gastroesophageal reflux disease) (Acute) Hemorrhoids (Acute) IBS (irritable bowel syndrome) (Acute) Rheumatoid arthritis (Acute) Surgical History H/O section (Acute) History of appendectomy (Acute) History of cholecystectomy (Acute) History of lymph node dissection of right axilla (Acute) History of reconstruction of right breast (Acute) History of right total mastectomy (Acute) History of total left knee replacement (Acute) Family History Mother Heart disease Diabetes Arthritis Father Heart disease Social History (Updated 03/13/20 @ 14:[address] Obdulio Zuleta, ) Smoking Status: Current every day smoker tobacco type: cigarettes Tobacco: How many years used: 55 Electronic Cigarette Use: not used second hand exposure: Yes quit status: has quit before counseling given: provider counseling alcohol intake: never substance use type: does not use caffeine: Yes what type of physical activity do you participate in: none, walking frequency: does not exercise seatbelt use: always HPI Bilat knees: Chief Complaint: Referral from Dr. Tobar bilateral knee pain Details: Parts of this documentation were recorded by a scribe, this documentation accurately reflects the service provided and the decisions made by me, Dr. Obdulio Zuleta DO 03/13/20 0756. LUIS F FERREIRA is a 70 year old F NEW patient here today for BL knee pain. Referred by Dr. Tobar. She has a partial knee replacement of the left knee which was done 7 years ago. She states the left knee was good after surgery. She started having left knee pain for about 1-2 months. Once Doctor in room patient states she has had left knee pain for 1-2 years. Denies any injury. She has had right knee pain for a few years and she was supposed to have a right TKA but did not go through with this. She states that she has generalized right knee over the anterior knee and she has posterior knee pain. She does have pain into her calf as well as into her rico a times. She does have numbness and tingling of the upper shins. Denies any PT. Denies any injections of the knees recently. She is on tramadol right now for the knee pain. She states she has painful popping and clicking of the right knee at times. She states that the left knee pain is over the anterior knee. She is unable to kneel d/t the pain. She is unable to fully extend the right knee and she has limited flexion of the right knee. She has full extension and good flexion of the left knee. She states she has tried bracing in the past along with PT. Right knee is medial anterior, posterior. She now states that she has had numbness of her BL feet since the chemo not in her shins. She has a hx of cancer and received chemo therapy and states she has had numbness since the chemo. Her last chemo treatment was about 4 years ago. She had breast cancer and has to have a right mastectomy. She has been in remission for 4 years now. She does get injections into her pain. Ortho Exam General General: Yes no acute distress Neurologic: Yes alert, Yes oriented x3 Psychologic: Yes reasonable and appropriate Right Knee Skin/Wound: No erythema, No ecchymosis, No swelling Homans Sign: No Knee ROM: No ROM-Extension -20 to 0 (lacking 3), No ROM-Flexion 0-140 (89) Examination: Yes Med jt line tenderness, No Lat jt line tenderness Stability: NML: Anterior Drawer, NML: Posterior Drawer, NML: Valgus 30, NML: Varus 30 Patella Grind: Yes KNEE: no significant swelling hypersensitivity of hamstring insertion faint joint effusion crepitation and pain with patellar grind hypersensitivity to the right lower leg Left Knee Skin/Wound: No ecchymosis, No erythema, No swelling Homans Sign: No Knee ROM: No ROM-Extension -20 to 0 (lacking 3), No ROM-Flexion 0-140 (95) Examination: Yes Lat jt line tenderness Stability: NML: Anterior Drawer, NML: Posterior Drawer, NML: Valgus 0, NML: Valgus 30 Apprehension with Lateral Translation: No Patella Grind: Yes KNEE: no significant swelling no joint effusion scap over incision from recent scratch no patellar instability Supplemental Info 03/13/2020 x-ray right knee advanced tricompartmental DJD 03/13/2020 x-ray left knee: Status post unicompartmental medial uniarthroplasty there is mild narrowing of the lateral compartment and mild spurring of the patellofemoral joint, Implant appears well fixed and well-positionedThe polyethylene markers appear to be positioned within the joint suggesting a mobile-bearing Assessment & Plan Plan Obtained X-rays of patient's right knee and left knee. Personally reviewed x- rays. There is no obvious fracture, dislocation, or lucency noted. Patient educated that the left knee partial replacement is in place and there is no sign of loosening but she is developing some very mild medial OA of the knee. It is recommended that she tries a left knee brace for stability after right TKA. Discussed increased risk of infection in left knee with injection of steroid and at this point patient does not wish to assume this risk. Educated that she has right knee advanced OA. Treatment options are do nothing or steroid injection or PT or NSAIDs or right TKA. Risks, benefits and alternatives of surgery reviewed including but not limited to bleeding, infection, nerve, artery and/or tissue damage, fracture, VTE, mechanical feel of the knee, continued pain, stiffness and expected post-operative course. Patient wishes to proceed with right total knee replacement at this time. We will plan on the patient staying the night for surgery. Patient may require transitional care or rehab before returning home considering her contralateral knee having pain. However at this time patient wishes to plan on returning home PO Day #1. We will proceed with [employer] robotic assist. Instructed and educated on IOVERA treatment. Patient wishes to proceed with IOVERA as long as the procedure is covered by insurance. Hold all NSAIDs 1 week prior to surgery. Follow up 2 weeks post op or for IOVERA treatment or sooner if pain, swelling, numbness or associated symptoms, or concerns develop. All questions answered. Patient in agreement of plan. will foward a copy to Dr. Tobar. thank you for this consultation Orders Orders: Knee 4 or More Views Today M25.562, Z96.659 Knee 4 or More Views Today M25.561 Coding Level of Care Code 20947 I have re-examined the patient. There are no clinical changes since date of exam
[2020-04-04] MEDS: Cefazolin 2 GM in 0.9% Normal Saline 100 ML IV (13:55)
[2020-04-04] MEDS: dexAMETHasone 10 MG/ML Vial IV (14:06)
[2020-04-04] MEDS: 0.9% Normal Saline (Pres. free 10 ML Vial (15:10)
[2020-04-04] MEDS: Betamethasone/Betamethasone 30 MG/5 ML Vial (15:10)
[2020-04-04] MEDS: Bupivacaine Mpf 0.5% 30 ML VIAL (15:10)
[2020-04-04] MEDS: Epinephrine (1 mg/ml) 1 MG/ML VIAL (15:10)
--- NOTE | 2020-04-04 15:36 | OP.PCM_ITS ---
Report of Operation Date of Procedure: 04/04/20 Description of Surgical Findings:: Preoperative diagnosis: Right knee DJD Postoperative diagnosis: Same Procedure: Right total knee arthroplasty CT guided Robotic Assisted Implant: Barbie triathlon cemented femoral component size2, cemented tibial baseplate size 2, cemented asymmetric patella size 32, polyethylene X3 size 9 CS Anesthesia: Spinal with adductor canal block Tourniquet time: 10 minutes at 300 mmHg Complications: None Condition: Stable to PACU Estimated blood loss: 125 cc Indication for procedure: This is a 70-year-old female with long standing degenerative joint disease of the knee who has failed conservative treatment and wished to proceed with elective total knee arthroplasty. Risk benefits and alternatives were reviewed including; risk of bleeding, infection, nerve artery and tissue damage, continued pain, postoperative stiffness, venous thromboembolism, need for postoperative rehabilitation, mechanical feel to the knee, and expected postoperative course. The operative CT and templating was performed with component sizing Procedure: The patient was met in the preoperative holding area. The operative extremity was identified by both patient and physician and was marked. Patient was met by anesthesia. An adductor canal block was placed by anesthesia postoperatively the patient was brought back to the operating room on a wheeled cart and transferred to the operating table in the supine position. Anesthesia was started. A well-padded tourniquet was placed on the operative extremity. The patient was prepped and draped in the usual sterile fashion. A timeout was called to ensure the proper patient procedure and extremity were being contemplated. An Esmarch was used to exsanguinate the extremity. The tourniquet was inflated. A 10 blade scalpel was used to make a midline incision down through the skin and subcutaneous tissue. Skin retractors placed. Bovie was used to perform meticulous hemostasis. full-thickness flaps were elevated medial and lateral along the joint capsule. A deep blade scalpel was used to perform a medial parapatellar arthrotomy. The knee was brought to full extension. A Bovie was used to release the soft tissues off the most proximal aspect of the medial tibial plateau, a three-quarter inch curved osteotome was also used for this process. The infrapatellar fat pad was excised. The superior fat pad was excised partially anteriorolateraly and portion the anterioromedial pad was elevated from the femur. At this point our intra- articular femoral array was placed of a 45 degree angle proximal and posterior to the medial epicondyle. Our tibial array was placed greater than 1 hands breath below the incision at a 20 degree angle stab incisions were used for this case were attached and checked with the robotic software. Tourniquet was let down. At this point registration huff were taken throughout the knee as well as checkpoints placed in the femur and tibia once the knee was registered then tensioned the medial and lateral ligaments in extension and 90 degrees of flexion. We then used these numbers to adjust our components within parameters to balance the knee in both flexion and extension once this was done on our monitor we then proceeded with using the robotic arm to make our tibial plateau cut and anterior posterior and chamfer cuts and distal on the femur we then trialed and achieved the desired plan with a well-balanced knee. Lug holes were drilled in the femur the tibia preparation was completed with a fin punch and the patella was prepared by first using a caliper to ensure sufficient bone stock and a patellar reamer to remove the desired amount of bone locals were drilled for an asymmetric poly-. We then brought the knee through range of motion with excellent patellar tracking. We thoroughly irrigated the knee with a trial components were removed a posterior capsular injection with her standard cocktail was performed the aqua Mantis was also used to aid in hemostasis. Betadine rinse was allowed to sit and washed out components were cemented Aricept rinse was then used followed by several more rate liters of irrigation after it was allowed to sit. Joint capsule was closed with #1 Ethibond [id number] followed by Vicryl in the subcutaneous tissues staple in the skin arrays and checkpoints were removed prior to closure all counts were correct stab incisions were closed with a stable standard dressing in the form of Mepilex for the main incision Xeroform 4 x 4 and Tegaderm over pin site holes. Thigh-high FRANKLYN hose applied over top of dressing. Patient tolerated the procedure well and was directed to PACU in stable condition no intraoperative complications
[2020-04-04] MEDS: Cefazolin 1 GM/50 ML BAG IV (16:29)
--- NOTE | 2020-04-04 16:30 | RAD_ITS ---
STUDY: X-RAY - RIGHT KNEE REASON FOR EXAM: Female, 70 years old. POST OP TECHNIQUE: 2 view(s) of the knee. COMPARISON: None. FINDINGS: Normal visualized distal femur. Normal visualized proximal tibia and fibula. Normal proximal tibiofibular articulation. Total knee arthroplasty. Normal medial femorotibial compartment. Normal lateral femorotibial compartment. Normal patellofemoral articulation. Skin kamryn anteriorly. Subcutaneous gas and gas in the joint. RAD/Knee 1 or 2 Views IMPRESSION: Status post total knee arthroplasty Electronically Signed: Julio Marie MD at 17:19 EST , Service support ,
[2020-04-04] MEDS: Lactated Ringers 1,000 ML 125 ML IV ×2 (16:35→18:46)
[2020-04-04] MEDS: oxyCODONE 5 MG Tablet PO (18:59)
[2020-04-04] MEDS: Senna/Docusate Sodium 1 Tablet 2 TABLET PO (21:41)
[2020-04-05] MEDS: Cefazolin 1 GM/50 ML BAG IV ×2 (00:12→08:50)
[2020-04-05] MEDS: 0.9% Saline Lock 10 ML Syringe IV ×3 (00:13→11:15)
[2020-04-05 02:35] VITALS: BP 133/70; PULSE 61; RESP 18; TEMP 36.5; O2SAT 98
[2020-04-05] MEDS: Acetaminophen 500 MG Tablet 1000 MG PO ×3 (06:18→21:21)
[2020-04-05] MEDS: APIXABAN 2.5 MG TABLET PO ×2 (06:18→21:21)
[2020-04-05 06:35] LABS: Hematocrit 41.6 % (37-47); Hemoglobin 13.6 g/dL (12.0-15.0); Mean Corp Hgb Conc 32.7 g/dL (32-36); Mean Corpuscular Hgb 29.9 pg (27.0-32.0); Mean Corpuscular Volume 91.4 fL (81-99); Platelet Count 198 K/mm3 (150-450); RBC Distribution Width SD 40.4 fl (35.1-43.9); Red Blood Count 4.55 M/mm3 (4.2-5.4); White Blood Count 14.3 K/mm3 (4.4-11.0)
[2020-04-05 07:04] LABS: Anion Gap 4 (5-15); BUN 13 mg/dL (7-18); BUN/Creat Ratio 15.8 RATIO (10-20); Calcium,Total 9.2 mg/dL (8.5-10.1); Chloride 104 mmol/L (98-107); Creatinine, Serum 0.82 mg/dL (0.55-1.02); EST Glomerular Filtration Rate 73 mL/min (>60); Est Glom Filt Rate - Afr Amer 88 mL/min (>60); Glucose 206 mg/dL (74-106); Potassium 4.5 mmol/L (3.5-5.1); Sodium Level 135 mmol/L (136-145)
[2020-04-05 08:45] VITALS: BP 127/55; PULSE 79; RESP 16; TEMP 36.3; O2SAT 97
[2020-04-05] MEDS: Senna/Docusate Sodium 1 Tablet 2 TABLET PO (08:50)
--- NOTE | 2020-04-05 10:12 | CASEMGMT ---
Social Work Assessment Referral Date: 04/04/2020 Date of Assessment: 04/05/2020 Reason for consult: Rehab/SNF Informant: Personal Status: SW met with pt to complete assessment. SW introduced self and role at [facility]. Pt is alert and orientated x3, answers questions appropriately. Living Arrangements: Pt states she lives with her in a one story home with 3-4 steps to enter. Pt states she has railings by the steps. DME: Cane, Walker, Crutches ADLs: Pt states was previously independent with [employer], states she no longer drives. Pt states her is usually able to drive but since he has been home from the hospital and recovering, he has not been able to drive. Pt states her has been home for 3 weeks. PCP: Dr. Tobar Pharmacy: [facility], pt states for her cancer medication she goes to [facility] in [place]. Substance Abuse Hx: Pt states she currently smokes. Mental Health Hx: Pt states history of anxiety. Pt states she is prescribed anxiety medication through her PCP. Pt states she hasn't been able to find the bottle of medications so she will need to order more. Pt states she has been through a lot with her cancer. Pt states all she knows is it was stage two and she had her breast removed. Pt states her son is supportive. Pt states she has been cancer free for four years. SW offered support to pt. HHC: Pt states she has had HHC in the pt when she had left knee done. Pt unable to remember name of the agency. SNF: Pt denied and then states I am not going to a long term. Before DANIE went to speak with pt DANIE spoke with PT. Pt was min assist able to walk about 50ft. SW spoke with pt regarding discharge plans. Pt states she cannot go home as her is too weak to assist. Pt states how is he going to help me to the bathroom with a walker when he needs to use a walker? Pt states that's why I want to go to fourth floor rehab unit. SW informed pt that pt's insurance will not approve RU and [facility] has no beds available at this time. SW explained that if pt feels she cannot go home, then she needs to consider SNF in the community. Patient was provided a list of SNF providers including quality and resource use data and consistent with the patient?s preferred geographic region, medical needs, and insurance network. Pt states I can't read it. SW asked pt if she can put on her glasses to read the list and pt states I still won't be able to see it, I am going blind. SW verbally went over list for pt. DANIE informed pt that only two SNF in [place] that are in contract with pt's insurance is [facility] and [facility] but explained [facility] is not taking anthem insurance at this time. SW also informed pt that regardless of SNF she goes to, pt will not be able to have visitors. Pt states that is not fair. SW provided support. Pt asked if she need to make a decision right now and SW informed pt that she needs to decide today as pt is likely medically ready for discharge and if SNF is the choice, pre-cert needs to be submitted today. Pt states she will be calling her son to discuss options. SW informed pt that this worker will stop back in and get choices and decision from pt today. Pt states understanding. DANIE placed a call to referral line and spoke with Belén. Belén confirms pt's insurance will not pay for RU. Belén states [facility] is having plan of care meetings today, may have a bed open up but is not sure. DANIE informed Belén to let this worker know if a bed opens up. Plan: TBD. Pt is deciding what she wants to do. Alysa De Oliveira MUSIC ARTIST, FIRE APPARATUS SPRINKLER INSPECTOR
--- NOTE | 2020-04-05 10:57 | CASEMGMT ---
Social Work Note DANIE updated that pt is agreeable to [facility]. DANIE and CLINTON BEE in to speak with pt. DANIE updated pt that at this time, [facility] also doesn't have beds available and reminded pt that this worker told that to pt earlier. DANIE explained again that if pt feels she cannot go home then she needs to consider SNF in the community. Pt then calls her son Shawn. Dumontwn on speaker phone. SW started to explain to Zacarias that pt's insurance will not approve RU and [facility] has no beds available at this time. Pt then starts to cry and states just send me home, they want me to go home and fall. DANIE and CLINTON BEE tried to speak with pt but pt becoming more tearful. CLINTON BEE took phone out of room to speak with Zacarias. SW stayed in room to provide support to pt. Pt states I just don't need any more stress right now, I don't want to go home and fall. DANIE spoke with pt about how pt can fall anywhere, (home, SNF) and that pt will have pain regardless as she just had knee surgery. DANIE spoke with pt regarding stress. Pt states her was at [facility] for four months with COVID and almost three times. Pt states he has only been home for three weeks and is recovering. DANIE offered support to pt and spoke with pt about how difficult that must have been. Pt states she doesn't want to go anywhere that will have COVID as she and her are getting over it. (Per chart, pt had COVID back in November). SW spoke with pt regarding her feelings of returning home and the anxiety she has. DANIE offered much support to pt. CLINTON BEE back into room with Zacarias on the phone and Zacarias agreeable to referral being sent to [facility]. Pt also agreeable. SW did inform pt and Zacarias and pt's procedure was an outpatient procedure and pt may get denied SNF. DANIE placed a call to [facility] and spoke with Jerrica, nurse manager ccu. DANIE updated Jerrica that referral will be sent and to let this worker know if they are able to accept pt. Jerrica states [facility]a is out today and may not get to review referral until tomorrow. DANIE asked Jerrica if anyone else is covering for Maura to look at referrals. Jerrica states she and another nurse manager ccu and child care center administrator is in today and may be able to look at referral and possibly call Maura regarding referral. SW asked Jerrica to let this worker know when they decide if they can accept or not. SW faxed referral. Plan: SNF pending acceptance and pre-cert Alysa De Oliveira ARCHITECTURAL SALES CONSULTANT, DEPENDENCY CASE MANAGER
[2020-04-05] MEDS: Losartan Potassium 25 MG Tablet PO (11:13)
[2020-04-05] MEDS: Escitalopram Oxalate 10 MG Tablet 5 MG PO (11:14)
[2020-04-05] MEDS: amLODIPine 2.5 MG Tablet PO (11:14)
[2020-04-05] MEDS: Furosemide 20 MG Tablet PO (11:14)
--- NOTE | 2020-04-05 11:35 | PN.ORTHO_ITS ---
Subjective: Upon entering the room patient states today that she is doing okay. She states that her block is still working very well having minimal pain in the knee. She states that she does have some early [id number] sensation within the ankle/foot. She states that this is starting to be a little sore in the same ankle/foot but that for the most part she is still numb from the block. Patient states that she has tried to walk a little bit but states that she only made it just out of the door and was having pain and unable to put all her weigh t on her knee so she had to turn back to the bed. At that point patient began to get a little emotional talking about how she can go home as her just came home from 4 months in the hospital due to Covid as well as Covid complications. She states that she cannot take care of herself at this point if he cannot move let alone try to take care of her . She states that she just cannot be at home her current physical state. Objective: Patient examined while she was sitting up in the bedside recliner. Patient was alert and oriented today and cooperative and appropriately responsive during conversation. She did as noted above get a little emotional and teary-eyed talking about her current state with her just getting home from the hospital. Inspection of the right knee shows a minor generalized swelling in the without any of the ecchymosis/bruising, erythema, or other skin changes. Incision sites are still covered with overlying Mepilex dressings. There is some minor saturation in the midportion of the larger dressing. This has not leaked to overlying stockings. Very minimal seeping on the smaller of the Mepilex dressings. There is no erythema, ecchymosis/bruising, warmth, or other signs of inflammation/infection around the dressing. Patient does have some minor tenderness on palpation of the knee. She has no calf tenderness today and and a negative Homans. She does have what she describes as soreness in the ankle/foot with light palpation. She states that she has pins and needle sensations here and palpation tends to cause a burning type sensation. She does have intact motor function of the knee/ankle/foot. She does have some discomfort with flexion and extension of the knee. Again she does have some decreased sensation to light touch secondary to waning block. She states that he is getting more and more sensation gradually. - Physical Exam Vitals/I&O's: Vital Signs Temp Pulse Resp BP Pulse Ox 97.3 F L 79 16 127/55 H 97 04/05/20 08:45 04/05/20 08:45 04/05/20 08:45 04/05/20 08:45 04/05/20 08:45 Oxygen Flow Rate (L/min) 6 Oxygen Delivery Method Room Air Weight: 132 lb 11.492 oz Body Mass Index (BMI) 28.7 Intake and Output for Last 24 Hours 04/03/20 04/04/20 04/05/20 23:59 23:59 23:59 Intake Total 1506.42 / 1506.42 2180.00 / 2180.00 Output Total 300 / 300 600 / 600 Balance 1206.42 / 1206.42 1580.00 / 1580.00 General: Alert, Oriented x3, Cooperative, No apparent distress - No signs of acute or uncontrolled pain, Well developed, Well nourished Oral: Moist Mucosa Lungs: Normal air movement Extremities: No cyanosis, No Calf Tenderness Skin: No rashes, Incision - Occlusive dressing (mepilex) still in place over both wounds. Some minor blood saturation in the center of the larger dressing (nothing through to overlying stocking). No surrounding erythema, ecchymosis, warmth, or tenderness to light touch. Musculoskeletal: Tenderness - minor tenderness on palpation of the knee. Psych/Mental Status: Appropriate, Depressed - Patient is emotional and gets teary eyed talking about her and how she wont be taken care of at home and cant do it herself. Microbiology Past 72 Hours 04/03/20 11:15 Interface Orders SARS-CoV-2 Antigen (Rapid) - Final Laboratory Results 04/05/20 06:25: WBC 14.3 H, RBC 4.55, Hgb 13.6, Hct 41.6, MCV 91.4, MCH 29.9, MCHC 32.7, RDW Std Deviation 40.4, RDW Coeff of Awa 12.0, Plt Count 198, MPV 11.0 04/05/20 06:25: Sodium 135 L, Potassium 4.5, Chloride 104, Carbon Dioxide 27.0, Anion Gap 4 L, BUN 13, Creatinine 0.82, Estim Creat Clear Calc 59.80, Est GFR (MDRD) Af Amer 88, Est GFR (MDRD) Non-Af 73, BUN/Creatinine Ratio 15.8, Glucose 206 H, Calcium 9.2 Current Medications Acetaminophen (Acetaminophen 500 Mg Tablet) 1,000 mg PO Q8 [facility] Last Admin: 04/05/20 06:18 Dose: 1,000 mg Documented by: Amlodipine Besylate (Amlodipine 2.5 Mg Tablet) 2.5 mg PO DAILY [facility] Last Admin: 04/05/20 11:14 Dose: 2.5 mg Documented by: Anastrozole (Anastrozole 1 Mg Tablet) 1 mg PO DAILY [facility] Last Admin: 04/05/20 11:21 Dose: Not Given Documented by: Apixaban (Apixaban 2.5 Mg Tablet) 2.5 mg PO BID [facility] Last Admin: 04/05/20 06:18 Dose: 2.5 mg Documented by: Aspirin ([facility]in E.C. 81 Mg Tablet) [facility] Escitalopram Oxalate (Escitalopram Oxalate 10 Mg Tablet) 5 mg PO DAILY [facility] Last Admin: 04/05/20 11:14 Dose: 5 mg Documented by: Furosemide (Furosemide 20 Mg Tablet) 20 mg PO DAILY [facility] Last Admin: 04/05/20 11:14 Dose: 20 mg Documented by: Hydromorphone HCl (Hydromorphone 0.5 Mg/0.5 Ml Syringe) 0.5 mg IV Q2H PRN PRN PRN Reason: Pain Score 6-10 Lactated Ringer's () 1,000 mls @ 125 mls/hr IV .Q8H [facility] Last Admin: 04/05/20 04:24 Dose: Not Given Documented by: Insulin Human Lispro (Insulin Lispro 100 Unit/Ml Insuln.Pen) 1 - 6 unit SC Q4H PRN PRN; Protocol PRN Reason: BG>/= 180, SEE PROTOCOL Ketorolac Tromethamine (Ketorolac 15 Mg/Ml Vial) 15 mg IV Q6H PRN PRN PRN Reason: Pain Score 1-5 Losartan Potassium (Losartan Potassium 25 Mg Tablet) 25 mg PO DAILY [facility] Last Admin: 04/05/20 11:13 Dose: 25 mg Documented by: Non-Formulary Medication (Omeprazole Magnesium [Prilosec Otc]) 20 mg PO QODAY [facility] Ondansetron HCl (Ondansetron 4 Mg/2 Ml Vial) 4 mg IV Q6H PRN PRN PRN Reason: NAUSEA Oxycodone HCl (Oxycodone 5 Mg Tablet) 5 - 10 mg PO Q4H PRN PRN PRN Reason: Pain Score 4-10 Last Admin: 04/04/20 18:59 Dose: 10 mg Documented by: Potassium Chloride (Potassium Chloride 20 Meq Tablet) 20 meq PO BID [facility] Last Admin: 04/05/20 11:14 Dose: 20 meq Documented by: Senna/Docusate Sodium (Senna/Docusate Sodium 1 Tablet) 2 tablet PO BID [facility] Last Admin: 04/05/20 08:50 Dose: 2 tablet Documented by: Sodium Chloride (0.9% Saline Lock 10 Ml Syringe) 10 - 40 ml IV UD PRN PRN Reason: SALINE FLUSH Last Admin: 04/05/20 11:15 Dose: 10 ml Documented by: Medical Necessity - Tobacco Use Smoking Status: Current every day smoker Tobacco Use: Cigarettes Assessment/Plan All Active Problems (Last Reviewed 03/17/20 @ 11:02 by Marlene Augustin) COVID-19 (Acute) SARS-associated coronavirus infection (Acute) Cancer of right female breast (Resolved) Cough (Acute) Exertional dyspnea (Acute) Postop day 1 status post right total knee arthroplasty. Patient seen today at patient's bedside sitting up in bedside recliner. At this time patient seems to be doing well at this point postop. She still having good relief from the postop block although starting to have some pins and needle sensation causing her some minor burning sensation in the ankle/foot. She does have intact motor function. Incisional dressings are still intact without any evidence of surrounding erythema, ecchymosis/bruising, warmth, or other signs of inflammation or infection. Minor saturation of the larger incision site dressing. Minor tenderness on palpation of the knee. She has no signs of DVT at this point. At this time patient has had some difficulties postop with ambulation. She was only able to walk approximately 20 to 30 feet and even then was not able to apply full weight onto the extremity and was apparently modified assist throughout ambulation. There is some concern with patient's current at home condition/living situation and that she does not feel that she would be able to safely take care of her self and especially able to take care of her who again just got out of the hospital after 4 months. She states that she does not really have anybody else that is able to come into the house to help her and just does not feel like she is able to be home right now. So at this point with her current physical and emotional state post-op as well as her living situation, it probably would be beneficial for her to be somewhere to receive some assistance until she feels comfortable/confident to be able to move and take care of her self as well as her . At this time we can continue ice, elevation, and SCDs while in hospital. She is to continue to ambulate only with assistance. She can be weightbearing as tolerated (with assistive device). She should continue with her thigh-high FRANKLYN hose. Continue with anticoagulation therapy at this point. We will continue to keep the current Mepilex dressing intact today. If there is worsening saturation could change tomorrow otherwise will change on day 3. Notify with any changes or other issues.
--- NOTE | 2020-04-05 13:48 | CASEMGMT ---
Social Work Note SW received call from Bel[facility] with TCU stating TCU will have a bed available for pt on Friday. Pre-cert will need to be submitted still. SW in to speak with pt. SW updated pt that TCU will now have a bed available for pt if she prefers to remain at [facility]. Pt [facility]. SW updated pt that pre-cert will be needed and pt still won't be allowed to have visitors. Pt states understanding, agreeable to [facility] TCU. Pt apologized for her break down earlier. SW spoke with pt about all the stress pt has had lately and that it is normal to have break downs. [facility] and updated her to disregard referral. Plan: TCU pending pre-cert Alysa De Oliveira [employer], [employer]
[2020-04-05 13:55] VITALS: BP 126/56; PULSE 73; RESP 16; TEMP 36.6; O2SAT 94
[2020-04-05] MEDS: oxyCODONE 5 MG Tablet PO ×2 (13:57→21:24)
--- NOTE | 2020-04-05 16:10 | CASEMGMT ---
CLINTON BEE in to discuss KELLY form with patient. RN CRISTAL explained KELLY form to patient, patient voiced understanding. Patient signed KELLY form and filed in chart. CLINTON BEE provided patient with copy of signed KELLY form. Patient had no further questions or concerns at this time.
[2020-04-05 20:29] VITALS: BP 129/57; PULSE 78; RESP 18; TEMP 36.5; O2SAT 97
[2020-04-06 03:17] VITALS: BP 128/68; PULSE 66; RESP 18; TEMP 36.6; O2SAT 98
[2020-04-06] MEDS: oxyCODONE 5 MG Tablet PO ×2 (03:24→21:37)
[2020-04-06] MEDS: Acetaminophen 500 MG Tablet 1000 MG PO ×3 (05:18→21:36)
[2020-04-06] MEDS: 0.9% Saline Lock 10 ML Syringe IV ×2 (05:20→23:19)
[2020-04-06] MEDS: Ketorolac 15 MG/ML Vial IV ×2 (05:20→23:19)
[2020-04-06 05:54] LABS: Hemoglobin 11.5 g/dL (12.0-15.0); Mean Corp Hgb Conc 31.9 g/dL (32-36); Mean Corpuscular Hgb 29.6 pg (27.0-32.0); Mean Corpuscular Volume 92.8 fL (81-99); Mean Platelet Vol. 11.5 fl (6.2-12.0); Platelet Count 173 K/mm3 (150-450); RBC Distribution Width CV 12.5 % (11.6-14.6); RBC Distribution Width SD 42.3 fl (35.1-43.9); Red Blood Count 3.88 M/mm3 (4.2-5.4); White Blood Count 9.9 K/mm3 (4.4-11.0)
[2020-04-06 07:27] VITALS: BP 129/68; PULSE 62; RESP 16; TEMP 36.4
[2020-04-06] MEDS: Aspirin E.C. 81 MG Tablet PO (07:51)
[2020-04-06] MEDS: Losartan Potassium 25 MG Tablet PO (09:03)
[2020-04-06] MEDS: Furosemide 20 MG Tablet PO (09:04)
[2020-04-06] MEDS: Escitalopram Oxalate 10 MG Tablet 5 MG PO (09:04)
[2020-04-06] MEDS: APIXABAN 2.5 MG TABLET PO ×2 (09:04→21:37)
[2020-04-06] MEDS: Pantoprazole Sodium 20 MG Tablet PO (09:05)
[2020-04-06] MEDS: amLODIPine 2.5 MG Tablet PO (09:05)
[2020-04-06] MEDS: Anastrozole 1 MG TABLET PO (09:05)
[2020-04-06] MEDS: Senna/Docusate Sodium 1 Tablet 2 TABLET PO (09:06)
--- NOTE | 2020-04-06 09:10 | PCM.PN.ORT ---
Subjective: Seen and examined. Doing okay ambulating with physical therapy complain of significant pain does not wish to return home wishes for rehab. Denies fevers chills nausea vomiting shortness of breath or chest pain she is eating and passing gas. - Physical Exam Vitals/I&O's: Vital Signs Temp Pulse Resp BP Pulse Ox 97.6 F L 62 16 129/68 H 98 04/06/20 07:27 04/06/20 07:27 04/06/20 07:27 04/06/20 07:27 04/06/20 03:17 Oxygen Flow Rate (L/min) 6 Oxygen Delivery Method Room Air Weight: 132 lb 11.492 oz Body Mass Index (BMI) 28.7 Intake and Output for Last 24 Hours 04/04/20 04/05/20 04/06/20 23:59 23:59 23:59 Intake Total 1506.42 / 1506.42 3880.00 / 3880.00 600 / 600 Output Total 300 / 300 900 / 900 Balance 1206.42 / 1206.42 2980.00 / 2980.00 600 / 600 General: Alert, Oriented x3, Cooperative, No apparent distress Extremities: - - Dressing with minimal drainage compartments soft neurovascular intact Microbiology Past 72 Hours 04/03/20 11:15 Interface Orders SARS-CoV-2 Antigen (Rapid) - Final Laboratory Results 04/06/20 05:10: WBC 9.9, RBC 3.88 L, Hgb 11.5 L, Hct 36.0 L, MCV 92.8, MCH 29.6, MCHC 31.9 L, RDW Std Deviation 42.3, RDW Coeff of Awa 12.5, Plt Count 173, MPV 11.5 Current Medications Acetaminophen (Acetaminophen 500 Mg Tablet) 1,000 mg PO Q8 [facility] Last Admin: 04/06/20 05:18 Dose: 1,000 mg Documented by: Amlodipine Besylate (Amlodipine 2.5 Mg Tablet) 2.5 mg PO DAILY [facility] Last Admin: 04/06/20 09:05 Dose: 2.5 mg Documented by: Anastrozole (Anastrozole 1 Mg Tablet) 1 mg PO DAILY [facility] Last Admin: 04/06/20 09:05 Dose: 1 mg Documented by: Apixaban (Apixaban 2.5 Mg Tablet) 2.5 mg PO BID [facility] Last Admin: 04/06/20 09:04 Dose: 2.5 mg Documented by: Aspirin (Aspirin E.C. 81 Mg Tablet) [facility] Last Admin: 04/06/20 07:51 Dose: 81 mg Documented by: Escitalopram Oxalate (Escitalopram Oxalate 10 Mg Tablet) 5 mg PO DAILY [facility] Last Admin: 04/06/20 09:04 Dose: 5 mg Documented by: Furosemide (Furosemide 20 Mg Tablet) 20 mg PO DAILY [facility] Last Admin: 04/06/20 09:04 Dose: 20 mg Documented by: Hydromorphone HCl (Hydromorphone 0.5 Mg/0.5 Ml Syringe) 0.5 mg IV Q2H PRN PRN PRN Reason: Pain Score 6-10 Insulin Human Lispro (Insulin Lispro 100 Unit/Ml Insuln.Pen) 1 - 6 unit SC Q4H PRN PRN; Protocol PRN Reason: BG>/= 180, SEE PROTOCOL Ketorolac Tromethamine (Ketorolac 15 Mg/Ml Vial) 15 mg IV Q6H PRN PRN PRN Reason: Pain Score 1-5 Last Admin: 04/06/20 05:20 Dose: 15 mg Documented by: Losartan Potassium (Losartan Potassium 25 Mg Tablet) 25 mg PO DAILY [facility] Last Admin: 04/06/20 09:03 Dose: 25 mg Documented by: Ondansetron HCl (Ondansetron 4 Mg/2 Ml Vial) 4 mg IV Q6H PRN PRN PRN Reason: NAUSEA Oxycodone HCl (Oxycodone 5 Mg Tablet) 5 - 10 mg PO Q4H PRN PRN PRN Reason: Pain Score 4-10 Last Admin: 04/06/20 03:24 Dose: 10 mg Documented by: Pantoprazole Sodium (Pantoprazole Sodium 20 Mg Tablet) 20 mg PO QODAY [facility] Last Admin: 04/06/20 09:05 Dose: 20 mg Documented by: Potassium Chloride (Potassium Chloride 20 Meq Tablet) 20 meq PO BID [facility] Last Admin: 04/06/20 09:04 Dose: 20 meq Documented by: Senna/Docusate Sodium (Senna/Docusate Sodium 1 Tablet) 2 tablet PO BID [facility] Last Admin: 04/06/20 09:06 Dose: 2 tablet Documented by: Sodium Chloride (0.9% Saline Lock 10 Ml Syringe) 10 - 40 ml IV UD PRN PRN Reason: SALINE FLUSH Last Admin: 04/06/20 05:20 Dose: 10 ml Documented by: Medical Necessity - Tobacco Use Smoking Status: Current every day smoker Tobacco Use: Cigarettes Assessment/Plan All Active Problems (Last Reviewed 03/17/20 @ 11:02 by Marlene Augustin) COVID-19 (Acute) SARS-associated coronavirus infection (Acute) Cancer of right female breast (Resolved) Cough (Acute) Exertional dyspnea (Acute) Postop day #2 right TKA PT OT weightbearing as tolerated DC to TCU versus home today DVT prophylaxis Pablo leal Follow-up in office 2 weeks
--- NOTE | 2020-04-06 09:15 | DCINST_ITS ---
Discharge Diet: No Restrictions Weight Bearing Status: Weight bearing as tolerated Keep extremity elevated above heart level: Operative Extremity Call your doctor if you observe: Shortness of breath, Chest pain Additional Instructions: Ice and elevate one week while not ambulating. Ambulation is encouraged. Weightbearing as tolerated. Use assistive devise for stability. Encourage FULL knee extension and flexion 1 time EVERY time you get up and down and MULTIPLE times per day. No showering 72 hours after surgery. Begin showering postop day #3. Remove the dressing prior to shower and gently wash with warm water and antibacterial soap then pat dry and place abdominal pad (or plain gauze) and FRANKLYN hose over top. This is to be done daily. Do not submerge for 3 weeks. If not showering daily after the initial 72 hours then you must clean incision and change dressing daily. Do not allow animals near the incision area. Keep clean. Follow anticoagulation recommendations as prescribed. Do not take any NSAIDs while on blood thinner. Do not take any additional narcotic pain medication other than what was prescribed on you surgery day without discussing with physician. Start physical therapy. If you are not currently scheduled for physical therapy or you are unsure of appointment time please call office [facility] to arrange. Call Dr. Zuleta with any concerns. Allergies/Adverse Reactions: Allergies Antihistamines - Alkylamine Allergy (Severe, Verified 04/04/20 10:02) TACHYCARDIA REVIEWED ALL ALERGEN/ADVREAC ON 07-29-17 Antihistamines - Ethanolamine Allergy (Severe, Verified 04/04/20 10:02) TACHYCARDIA Antihistamines - Ethylenediamine Allergy (Severe, Verified 04/04/20 10:02) TACHYCARDIA Antihistamines - Piperazine Allergy (Severe, Verified 04/04/20 10:02) TACHYCARDIA Antihistamines - Piperidine Allergy (Severe, Verified 04/04/20 10:02) TACHYCARDIA diphenhydramine [From Benadryl] Allergy (Severe, Verified 04/04/20 10:02) TACHYCARDIA Medications to take at Discharge cholecalciferol (vitamin D3) 25 mcg (1,000 unit) capsule 5,000 unit PO QDAY cap 06/13/17 denosumab 60 mg/mL subcutaneous syringe 60 mg SC [id number] #1 ml 06/13/17 Ascorbic Acid [Vitamin C] 1,000 mg PO DAILY 05/29/18 Aspirin [Aspir 81] 81 mg PO DAILY 05/29/18 Anastrozole [Arimidex] 1 mg PO DAILY 90 Days #90 tab 06/01/19 escitalopram oxalate 5 mg tablet 5 mg PO QDAY #90 tab 09/10/19 losartan 25 mg tablet 25 mg PO DAILY #90 tab 09/10/19 amlodipine 2.5 mg tablet 2.5 mg PO QDAY #90 tab 01/11/20 tramadol 50 mg tablet 50 mg PO BID PRN #20 tab 02/01/20 potassium chloride 20 mEq tablet,extended release 20 meq PO BID #60 tab 03/20/20 Omeprazole Magnesium [Prilosec Otc] 20 mg PO QODAY 03/21/20 furosemide 20 mg tablet 20 mg PO DAILY #30 tab 03/28/20 Acetaminophen [Tylenol Extra Strength] 1,000 mg PO Q6H PRN #100 tab 04/06/20 Apixaban [Eliquis] 2.5 mg PO BID #28 tab 04/06/20 Oxycodone [Oxyir] 5 mg PO Q4H PRN PRN #60 tab 04/06/20 The following prescriptions were given: Apixaban [Eliquis] 2.5 mg PO BID #28 tab Prescription Printed Oxycodone [Oxyir] 5 mg PO Q4H PRN PRN #60 tab PRN Reason: Pain Score 6-10 Prescription Printed Acetaminophen [Tylenol Extra Strength] 1,000 mg PO Q6H PRN #100 tab Prescription Printed Primary Care Physician: Weston Tobar MD [Primary Care Provider] - Test Results: Test results from this visit will be discussed in further detail at your follow- up appointment, if applicable. Please Follow Up With: Obdulio Zuleta DO - 2 weeks
--- NOTE | 2020-04-06 09:20 | DS.PCM_ITS ---
Discharge Date and Diagnosis Date of Admission: 04/04/20 Date of Discharge: 04/06/20 - Secondary Discharge Diagnosis Chronic Problems: Chronic Problems (Last Reviewed 03/17/20 @ 11:02 by Marlene Augustin) Tobacco abuse (Chronic) Vaginal dryness (Chronic) Hypertension (Chronic) Neck pain (Chronic) Osteoporosis (Chronic) Acute internal jugular vein thrombosis (Chronic) Left status post left IJ Port-A-Cath, which has been removed Chronic back pain (Chronic) IBS (irritable bowel syndrome) (Chronic) GERD (gastroesophageal reflux disease) (Chronic) Rheumatoid arthritis (Chronic) Anxiety and depression (Chronic) Invasive ductal carcinoma of right breast (Chronic) Hospital Course and Treatment Summary of Care Provided: The patient is a 70 year old F who has long history of 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 Patient underwent the aformentioned procedure on the admission date without any intraoperative complications. Patient did receive pre-and postoperative antibiotics which were discontinued within 23 hours postoperatively. Patient did receive spinal anesthesia as well as an adductor canal block postoperatively. pain was controlled with IV and transition to p.o. pain medication Patient will be discharged TCU vs home with oxycodone and will continue Tylenol as well. Patient had minimal intraoperative blood loss and 2gm tranexamic acid was administered there was no need for postoperative blood transfusion Patients vital signs remained stable. Patient was started on both mechanical and chemical DVT per prophylaxis postoperatively in the form of SCDs FRANKLYN hose and Eliquis 2.5 mg twice daily for which she will continue for 2 additional weeks post hospital discharge. thigh high franklyn hose placed over top of the meplix silver dressing. This should be removed 72 hrs post operatively and showering begun daily at that time with warm water and antibacterial soap. not to submerge for 3 weeks. To change dressing daily after first dressing change. Patient will follow-up in the office in 2 weeks. No intrahospital complications. - Physical Exam Vitals/I&O's: Vital Signs Temp Pulse Resp BP Pulse Ox 97.6 F L 62 16 129/68 H 98 04/06/20 07:27 04/06/20 07:27 04/06/20 07:27 04/06/20 07:27 04/06/20 03:17 Oxygen Flow Rate (L/min) 6 Oxygen Delivery Method Room Air Weight: 132 lb 11.492 oz Body Mass Index (BMI) 28.7 Intake and Output for Last 24 Hours 04/04/20 04/05/20 04/06/20 23:59 23:59 23:59 Intake Total 1506.42 / 1506.42 3880.00 / 3880.00 600 / 600 Output Total 300 / 300 900 / 900 Balance 1206.42 / 1206.42 2980.00 / 2980.00 600 / 600 Microbiology Past 72 Hours 04/03/20 11:15 Interface Orders SARS-CoV-2 Antigen (Rapid) - Final Laboratory Results 04/06/20 05:10: WBC 9.9, RBC 3.88 L, Hgb 11.5 L, Hct 36.0 L, MCV 92.8, MCH 29.6, MCHC 31.9 L, RDW Std Deviation 42.3, RDW Coeff of Awa 12.5, Plt Count 173, MPV 11.5 Current Medications Acetaminophen (Acetaminophen 500 Mg Tablet) 1,000 mg PO Q8 [facility] Last Admin: 04/06/20 05:18 Dose: 1,000 mg Documented by: Amlodipine Besylate (Amlodipine 2.5 Mg Tablet) 2.5 mg PO DAILY [facility] Last Admin: 04/06/20 09:05 Dose: 2.5 mg Documented by: Anastrozole (Anastrozole 1 Mg Tablet) 1 mg PO DAILY [facility] Last Admin: 04/06/20 09:05 Dose: 1 mg Documented by: Apixaban (Apixaban 2.5 Mg Tablet) 2.5 mg PO BID [facility] Last Admin: 04/06/20 09:04 Dose: 2.5 mg Documented by: Aspirin ([facility] E.C. 81 Mg [facility] Admin: 04/06/20 07:51 Dose: 81 mg Documented by: Escitalopram Oxalate (Escitalopram Oxalate 10 Mg Tablet) 5 mg PO DAILY [facility] Last Admin: 04/06/20 09:04 Dose: 5 mg Documented by: Furosemide (Furosemide 20 Mg Tablet) 20 mg PO DAILY [facility] Last Admin: 04/06/20 09:04 Dose: 20 mg Documented by: Hydromorphone HCl (Hydromorphone 0.5 Mg/0.5 Ml Syringe) 0.5 mg IV Q2H PRN PRN PRN Reason: Pain Score 6-10 Insulin Human Lispro (Insulin Lispro 100 Unit/Ml Insuln.Pen) 1 - 6 unit SC Q4H PRN PRN; Protocol PRN Reason: BG>/= 180, SEE PROTOCOL Ketorolac Tromethamine (Ketorolac 15 Mg/Ml Vial) 15 mg IV Q6H PRN PRN PRN Reason: Pain Score 1-5 Last Admin: 04/06/20 05:20 Dose: 15 mg Documented by: Losartan Potassium (Losartan Potassium 25 Mg Tablet) 25 mg PO DAILY [facility] Last Admin: 04/06/20 09:03 Dose: 25 mg Documented by: Ondansetron HCl (Ondansetron 4 Mg/2 Ml Vial) 4 mg IV Q6H PRN PRN PRN Reason: NAUSEA Oxycodone HCl (Oxycodone 5 Mg Tablet) 5 - 10 mg PO Q4H PRN PRN PRN Reason: Pain Score 4-10 Last Admin: 04/06/20 03:24 Dose: 10 mg Documented by: Pantoprazole Sodium (Pantoprazole Sodium 20 Mg Tablet) 20 mg PO QODAY [facility] Last Admin: 04/06/20 09:05 Dose: 20 mg Documented by: Potassium Chloride (Potassium Chloride 20 Meq Tablet) 20 meq PO BID [facility] Last Admin: 04/06/20 09:04 Dose: 20 meq Documented by: Senna/Docusate Sodium (Senna/Docusate Sodium 1 Tablet) 2 tablet PO BID [facility] Last Admin: 04/06/20 09:06 Dose: 2 tablet Documented by: Sodium Chloride (0.9% Saline Lock 10 Ml Syringe) 10 - 40 ml IV UD PRN PRN Reason: SALINE FLUSH Last Admin: 04/06/20 05:20 Dose: 10 ml Documented by: Discharge Diet: No Restrictions Weight Bearing Status: Weight bearing as tolerated Keep extremity elevated above heart level: Operative Extremity Call your doctor if you observe: Shortness of breath, Chest pain Home Medications: Medications to take at Discharge cholecalciferol (vitamin D3) 25 mcg (1,000 unit) capsule 5,000 unit PO QDAY cap 06/13/17 denosumab 60 mg/mL subcutaneous syringe 60 mg SC [id number] #1 ml 06/13/17 Ascorbic Acid [Vitamin C] 1,000 mg PO DAILY 05/29/18 Aspirin [Aspir 81] 81 mg PO DAILY 05/29/18 Anastrozole [Arimidex] 1 mg PO DAILY 90 Days #90 tab 06/01/19 escitalopram oxalate 5 mg tablet 5 mg PO QDAY #90 tab 09/10/19 losartan 25 mg tablet 25 mg PO DAILY #90 tab 09/10/19 amlodipine 2.5 mg tablet 2.5 mg PO QDAY #90 tab 01/11/20 potassium chloride 20 mEq tablet,extended release 20 meq PO BID #60 tab 03/20/20 Omeprazole Magnesium [Prilosec Otc] 20 mg PO QODAY 03/21/20 furosemide 20 mg tablet 20 mg PO DAILY #30 tab 03/28/20 Acetaminophen [Tylenol Extra Strength] 1,000 mg PO Q6H PRN #100 tab 04/06/20 Apixaban [Eliquis] 2.5 mg PO BID #28 tab 04/06/20 Oxycodone [Oxyir] 5 mg PO Q4H PRN PRN #60 tab 04/06/20 Following Prescriptions Were Given to Patient: Apixaban [Eliquis] 2.5 mg PO BID #28 tab Prescription Printed Oxycodone [Oxyir] 5 mg PO Q4H PRN PRN #60 tab PRN Reason: Pain Score 6-10 Prescription Printed Acetaminophen [Tylenol Extra Strength] 1,000 mg PO Q6H PRN #100 tab Prescription Printed Primary Care Physician: Weston Tobar MD [Primary Care Provider] - Please Follow Up With: Obdulio Zuleta DO - 2 weeks Additional Instructions: Ice and elevate one week while not ambulating. Ambulation is encouraged. Weightbearing as tolerated. Use assistive devise for stability. Encourage FULL knee extension and flexion 1 time EVERY time you get up and down and MULTIPLE times per day. No showering 72 hours after surgery. Begin showering postop day #3. Remove the dressing prior to shower and gently wash with warm water and antibacterial soap then pat dry and place abdominal pad (or plain gauze) and FRANKLYN hose over top. This is to be done daily. Do not submerge for 3 weeks. If not showering daily after the initial 72 hours then you must clean incision and change dressing daily. Do not allow animals near the incision area. Keep clean. Follow anticoagulation recommendations as prescribed. Do not take any NSAIDs while on blood thinner. Do not take any additional narcotic pain medication other than what was prescribed on you surgery day without discussing with physician. Start physical therapy. If you are not currently scheduled for physical therapy or you are unsure of appointment time please call office [facility] to arrange. Call Dr. Zuleta with any concerns. Medical Necessity - Tobacco Use Smoking Status: Current every day smoker Tobacco Use: Cigarettes Meaningful Use Info Meaningful Use Diagnoses (Choose all that apply): None applicable
--- NOTE | 2020-04-06 09:39 | CASEMGMT ---
Addendum entered by Alysa De Oliveira 04/06/20 14:34: DANIE received call from Belén with TCU stating pt's case is still in review, no determination has been made. Original Note: Social Work Note DANIE spoke with Belén in TCU. If pre-cert is obtained, pt can discharge to TCU today. DANIE updated physician that if pt is approved for TCU, pt will need another COVID test. Charge Nurse updated as well. Plan: TCU today pending pre-cert Alysa De Oliveira DENTAL TECHNICIAN, CIVIL PREPAREDNESS TRAINING OFFICER
[2020-04-06 13:30] VITALS: BP 116/72; PULSE 72; RESP 18; TEMP 36.9; O2SAT 95
--- NOTE | 2020-04-06 16:09 | CASEMGMT ---
Social Work Note SW hasn't heard anything regarding pre-cert. SW is leaving soon for the day. SW in to speak with pt. SW updated pt that this worker is still waiting to hear from insurance. SW encouraged pt to have a back up plan in the event pt gets denied. Pt states if that happens, call my son and he will call insurance. DANIE informed pt that pt could still get denied regardless and to have a back up plan. Pt states insurance has tried to tell my that he didn't need therapy and my son called and got it approved. SW informed pt that this worker will update pt as soon as this worker hears from insurance. DANIE placed a call to Belén in TCU and left message that SW is leaving for the day and to call [facility] if pre-cert is obtained. DANIE informed Belén to just call this worker if pt gets denied. Green sheet on the chart in the event pre-cert is obtained. Alysa De Oliveira HYPERBARIC TECHNOLOGIST,AD TRAFFICKER
[2020-04-06 21:26] VITALS: BP 139/67; PULSE 68; RESP 17; TEMP 36.8; O2SAT 97
[2020-04-07 02:43] VITALS: BP 111/58; PULSE 64; RESP 17; TEMP 36.8; O2SAT 97
[2020-04-07] MEDS: Acetaminophen 500 MG Tablet 1000 MG PO ×2 (05:48→13:51)
[2020-04-07 06:36] LABS: Hematocrit 37.8 % (37-47); Hemoglobin 12.2 g/dL (12.0-15.0); Mean Corp Hgb Conc 32.3 g/dL (32-36); Mean Corpuscular Hgb 30.1 pg (27.0-32.0); Mean Corpuscular Volume 93.3 fL (81-99); Mean Platelet Vol. 11.5 fl (6.2-12.0); Platelet Count 181 K/mm3 (150-450); RBC Distribution Width CV 12.7 % (11.6-14.6); RBC Distribution Width SD 43.8 fl (35.1-43.9); Red Blood Count 4.05 M/mm3 (4.2-5.4); White Blood Count 7.4 K/mm3 (4.4-11.0)
[2020-04-07] MEDS: oxyCODONE 5 MG Tablet PO (07:34)
[2020-04-07 07:39] VITALS: BP 148/78; PULSE 69; RESP 18; TEMP 36.3; O2SAT 98
--- NOTE | 2020-04-07 09:18 | CASEMGMT ---
Addendum entered by Alysa De Oliveira 04/07/20 11:38: DANIE updated by TCU that if pt needs Prolia Injection (every 6 months) while on TCU, medication will need to be brought in and TCU can administer it, TCU cannot order it. SW updated pt of this. Pt states her family will be able to bring in medication if needed. Original Note: Social Work Note DANIE received message from Belén in TCU stating pt was approved for TCU, can admit today, will need another COVID test. DANIE updated pt on approval and discharge to TCU. DANIE placed a call to Dr. Zuleta's office and updated Kim to update Dr. Zuleta that pt will be discharged to TCU today. Plan: TCU today Alysa De Oliveira REHAB TECH, MACHINE PAN GREASER
[2020-04-07] MEDS: Losartan Potassium 25 MG Tablet PO (10:44)
[2020-04-07] MEDS: Anastrozole 1 MG TABLET PO (10:44)
[2020-04-07] MEDS: Furosemide 20 MG Tablet PO (10:44)
[2020-04-07] MEDS: Escitalopram Oxalate 10 MG Tablet 5 MG PO (10:44)
[2020-04-07] MEDS: amLODIPine 2.5 MG Tablet PO (10:44)
[2020-04-07] MEDS: APIXABAN 2.5 MG TABLET PO (10:44)
[2020-04-07] MEDS: Aspirin E.C. 81 MG Tablet PO (10:44)
--- NOTE | 2020-04-07 11:31 | PHA.DC.MR ---
Pharmacy Service has performed discharge medication reconciliation for this patient upon transfer to TCU. Home Medications cholecalciferol (vitamin D3) 25 mcg (1,000 unit) capsule 5,000 unit PO QDAY cap 06/13/17 denosumab 60 mg/mL subcutaneous syringe 60 mg SC [id number] #1 ml 06/13/17 Ascorbic Acid [Vitamin C] 1,000 mg PO DAILY 05/29/18 Aspirin [Aspir 81] 81 mg PO DAILY 05/29/18 Anastrozole [Arimidex] 1 mg PO DAILY 90 Days #90 tab 06/01/19 escitalopram oxalate 5 mg tablet 5 mg PO QDAY #90 tab 09/10/19 losartan 25 mg tablet 25 mg PO DAILY #90 tab 09/10/19 amlodipine 2.5 mg tablet 2.5 mg PO QDAY #90 tab 01/11/20 potassium chloride 20 mEq tablet,extended release 20 meq PO BID #60 tab 03/20/20 Omeprazole Magnesium [Prilosec Otc] 20 mg PO QODAY 03/21/20 furosemide 20 mg tablet 20 mg PO DAILY #30 tab 03/28/20 Acetaminophen [Tylenol Extra Strength] 1,000 mg PO Q6H PRN #100 tab 04/06/20 Apixaban [Eliquis] 2.5 mg PO BID #28 tab 04/06/20 Oxycodone [Oxyir] 5 mg PO Q4H PRN PRN #60 tab 04/06/20 The patient's discharge medication list was reviewed for discrepancies and discrepancies were resolved.
--- NOTE | 2020-04-07 11:46 | NURSING ---
Report called to Mary MCCALL
== END 2020-04-07 13:57 | disposition skilled nursing facility (03) ==
LOC: SDC 15:38 → MS3 15:38
PROVIDERS: Anesthesiology; Admitting Provider Orthopaedic Surgery; PCP Internal Medicine; Referring Provider Orthopaedic Surgery; Visit Provider Orthopaedic Surgery
PROC: 0SRC0JZ Replacement of Right Knee Joint with Synthetic Substitute, Open Approach (ICD-10-PCS; CPT 27447; principal; 2020-04-04 12:15)
DX: M17.11 Unilateral primary osteoarthritis, right knee (principal); Z20.828 Contact with and (suspected) exposure to other viral communicable diseases; K21.9 Gastro-esophageal reflux disease without esophagitis; M06.9 Rheumatoid arthritis, unspecified; K58.9 Irritable bowel syndrome, unspecified; Z79.899 Other long term (current) drug therapy; Z79.82 Long term (current) use of aspirin; Z85.3 Personal history of malignant neoplasm of breast; F17.210 Nicotine dependence, cigarettes, uncomplicated; I10 Essential (primary) hypertension; F41.9 Anxiety disorder, unspecified; F32.9 Major depressive disorder, single episode, unspecified; Z86.718 Personal history of other venous thrombosis and embolism; Z87.19 Personal history of other diseases of the digestive system
CPT/HCPCS: 01400; 27447; 64447; S2900; 36415; 71046; 73560; 80048; 82962; 82985; 83735; 85027; 85610; 85730; 86850; 86900; 86901; 87081; 87426; 93005; 96361; 96365; 96366; 96375; 96376; 97110; 97116; 97162; 97166; 97530; 97535; 99218; 99251; 99406; C1776; C9803; J7120; A4216; G0378; G0379; G0463; J0702; J3475; J3490

== ENCOUNTER 2020-04-07 14:22 | Inpatient (IN) | payer MEDICARE, SELFPAY ==
[2018-02-09 10:47] VITALS: BMI 24.4
[2020-04-04 17:11] VITALS: BMI 28.7
[2020-04-07 14:32] VITALS: BP 123/64; PULSE 78; RESP 16; TEMP 36.1; O2SAT 96; BMI 27.1; BMI 27.2
--- NOTE | 2020-04-07 14:49 | PCM.HP.STD ---
Problem List (1) Debility Status: Acute (2) Osteoarthritis of right knee Status: Chronic (3) Vitamin D deficiency Status: Chronic (4) Breast cancer Status: Chronic (5) Depression Status: Chronic (6) Edema Status: Chronic (7) Hypertension Status: Chronic (8) Osteoporosis Status: Chronic History of Present Illness Date of Admission: 04/07/20 Chief Complaint: Here for rehabilitation, strengthening, prior to discharge home with . 04/04/2020 The patient is a 70 year old Female with below past medical history with followin03/28/2020 EKG normal sinus rhythm, normal EKG. Chest X-ray normal. 04/04/2020 Admit to Hospital. Orthopedics performed right total knee arthroplasty, CT guided, robotic assisted. Pre and post antibiotics given. Tranexamic acid 2GM given, no blood transfusion needed. Sequential compression devices, Franklyn hose, Eliquis for DVT prophylaxis thru 04/21/2020. 04/07/2020 Admit to TCU with debility, here for rehabilitation, strengthening, prior to discharge home with . Past Medical History Past Medical History (Chronic Problems): Chronic Problems (Last Reviewed 03/17/20 @ 11:02 by Marlene Augustin) Osteoarthritis of right knee (Chronic) Vitamin D deficiency (Chronic) Breast cancer (Chronic) Depression (Chronic) Edema (Chronic) Tobacco abuse (Chronic) Vaginal dryness (Chronic) Hypertension (Chronic) Neck pain (Chronic) Osteoporosis (Chronic) Acute internal jugular vein thrombosis (Chronic) Left status post left IJ Port-A-Cath, which has been removed Chronic back pain (Chronic) IBS (irritable bowel syndrome) (Chronic) GERD (gastroesophageal reflux disease) (Chronic) Rheumatoid arthritis (Chronic) Anxiety and depression (Chronic) Invasive ductal carcinoma of right breast (Chronic) Medical History: Medical History (Last Reviewed 03/17/20 @ 11:02 by Marlene Augustin) Neck pain (Chronic) M54.2 Acute internal jugular vein thrombosis (Chronic) I82.C19 Left status post left IJ Port-A-Cath, which has been removed Invasive ductal carcinoma of right breast (Chronic) C50.911 Encounter for adjustment or management of vascular access device (Inactive) Z45.2 Arthritis M19.90 Back problem M53.9 Breast cancer, right C50.911 GERD (gastroesophageal reflux disease) K21.9 Hemorrhoids K64.9 IBS (irritable bowel syndrome) Rheumatoid arthritis M06.9 Allergies Antihistamines - Alkylamine Allergy (Severe, Verified 04/04/20 10:02) TACHYCARDIA REVIEWED ALL ALERGEN/ADVREAC ON 07-29-17 Antihistamines - Ethanolamine Allergy (Severe, Verified 04/04/20 10:02) TACHYCARDIA Antihistamines - Ethylenediamine Allergy (Severe, Verified 04/04/20 10:02) TACHYCARDIA Antihistamines - Piperazine Allergy (Severe, Verified 04/04/20 10:02) TACHYCARDIA Antihistamines - Piperidine Allergy (Severe, Verified 04/04/20 10:02) TACHYCARDIA diphenhydramine [From Benadryl] Allergy (Severe, Verified 04/04/20 10:02) TACHYCARDIA Home Medications: Ambulatory Orders Medication Instructions Recorded cholecalciferol (vitamin D3) 25 5,000 unit PO QDAY cap 06/13/17 mcg (1,000 unit) capsule Ascorbic Acid [Vitamin C] 1,000 mg PO DAILY 05/29/18 Aspirin [Aspir 81] 81 mg PO DAILY 05/29/18 Omeprazole Magnesium [Prilosec Otc] 20 mg PO QODAY 03/21/20 Oxycodone [Oxyir] 5 mg PO Q4H PRN PRN #60 tab 04/06/20 Acetaminophen [Tylenol Extra 1,000 mg PO Q6H PRN PRN 04/07/20 Strength] Amlodipine Besylate 2.5 mg PO QDAY 04/07/20 Anastrozole [Arimidex] 1 mg PO DAILY 04/07/20 Apixaban [Eliquis] 2.5 mg PO BID 04/07/20 Denosumab [Prolia] 60 mg SC [id number] 04/07/20 Escitalopram Oxalate 5 mg PO QDAY 04/07/20 Furosemide [Lasix] 20 mg PO DAILY 04/07/20 Losartan Potassium [Cozaar] 25 mg PO DAILY 04/07/20 Potassium Chloride [K-Tab ER] 20 meq PO BID 04/07/20 Surgical History: Surgical History (Last Reviewed 03/17/20 @ 11:02 by Marlene Augustin) H/O section Z98.891 History of appendectomy Z90.49 History of cholecystectomy Z90.49 History of lymph node dissection of right axilla Z98.890 History of reconstruction of right breast Z98.890 History of right total mastectomy Z90.11 11/15/16 History of total left knee replacement Z96.652 Surgical History: appendectomy, cholecystectomy, mastectomy - Right total., total knee arthroplasty - Bilateral., - - Right axilla lymph node dissection, Right breast reconstruction. Psychiatric History: Anxiety, Depression BIG DATA PLATFORM ARCHITECT History: No pertinent BIG DATA PLATFORM ARCHITECT history Lives: Spouse/ Significant Other Smoking Status: Current every day smoker Tobacco Use: Cigarettes Alcohol: None Drugs: None - *Family History Maternal Family History: Family History (Last Reviewed 03/17/20 @ 11:02 by Marlene Augustin) Mother Heart disease Diabetes Arthritis Father Heart disease History Items: - - Maternal family history of arthritis, heart disease, diabetes. Paternal Family History: Family History (Last Reviewed 03/17/20 @ 11:02 by Marlene Augustin) Mother Heart disease Diabetes Arthritis Father Heart disease History Items: - - Paternal family history of heart disease. Review of Systems Constitutional: Denies: Chills, Fever, Weight Change HEENT: Denies: Head Aches, Sinus Congestion, Sinus Drainage Cardiovascular: Denies: Chest Pain, Palpitations Respiratory: Denies: Cough, Shortness of breath at rest, Sputum production Gastrointestinal: Denies: Abdominal Pain, Nausea, Vomiting Genitourinary: Denies: Dysuria Musculoskeletal: Denies: Joint Pain, Joint Tenderness Skin: Denies: Rash, Wounds Neurological: Denies: Numbness, Tingling, Focal weakness Psychiatric: Denies: Anxiety, Depression, Homicidal Ideations, Suicidal Ideations Hematologic/ Lymphatic: Denies: Easy Bruising, Easy Bleeding VTE Information - Inpt Only VTE Present on Admission: No VTE Mechan Device Prophylaxis: Knee High FRANKLYN Hose VTE Pharm Prophylaxis ordered?: Yes Patient Problems: Active and Suspected Problems (Last Reviewed 03/17/20 @ 11:02 by Marlene Augustin) Debility (Acute) - Physical Exam Vitals/I&O's: Body Mass Index (BMI) 28.7 General: Alert, Oriented x3, Cooperative HEENT: Atraumatic, PERRLA, EOMI, Normocephalic Neck: Supple, No JVD, Negative Carotid Bruits Lungs: Clear to auscultation, Normal air movement Cardiovascular: Regular rate, No murmurs Abdomen: Bowel Sounds Present, Soft, Non Tender Extremities: No edema, Capillary Refill Less than 3 Seconds Skin: No rashes, No breakdown Musculoskeletal: No Tenderness to Palpation of Joints or Extremities, - - Right knee dressed. Neurological: Cranial nerves II-XII grossly intact Psych/Mental Status: Normal Affect, Appropriate Current Medications Sodium Chloride (0.9% Saline Lock 10 Ml Syringe) 10 - 40 ml IV UD PRN PRN Reason: SALINE FLUSH Assessment/Plan All Active Problems (Last Reviewed 03/17/20 @ 11:02 by Marlene Augustin) COVID-19 (Acute) SARS-associated coronavirus infection (Acute) Debility (Acute) Cancer of right female breast (Resolved) Cough (Acute) Exertional dyspnea (Acute) 70 year old female with below past medical history hospitalized for CT guided, robotic assisted right total knee arthroplasty 04/04/2020, admitted to TCU with debility, here for rehabilitation, strengthening, prior to discharge home with . Debility - PT/OT. Pain - Tylenol 1000MG Q6H PRN pain (1-5), Oxycodone 5MG Q6H PRN pain (6-10). Bowel - Miralax 17GM daily, Senna/colace 2 tablets BID, MOM 30ML daily PRN, Dulcolax 10MG AK daily PRN. Adult immunization - Administer Prevnar 13, Pneumovax 23, Fluzone, COVID19 vaccine as appropriate. DVT prophylaxis - Eliquis 2.5MG BID thru 04/21/2020. Vitamin D deficiency - D3 1000IU daily. Vitamin C deficiency - Vitamin C 1000MG daily. CV prophylaxis - Aspirin 81MG daily. Breast cancer - Anastrozole 1MG daily. Depression - Escitalopram 5MG daily, stable chronic supervisor intermediates use, GDR not recommended. Hypertension - Losartan 25MG daily, Amlodipine 2.5MG daily. Hypokalemia - KCL ER 20MEQ daily. GERD - Pantoprazole 20MG every other day. Edema - Lasix 20MG daily.
--- NOTE | 2020-04-07 16:03 | CASEMGMT ---
Social Work Discussed code status with pt. Pt confirmed full code. MOLST form reviewed, communication to , placed in chart. Pt denied having POA/LW and not wanting to complete. Aida Warner, STEAM CLEAN MACHINE OPERATOR WIRE DRAWING MACHINE OPERATOR
[2020-04-07] MEDS: oxyCODONE 5 MG Tablet PO ×2 (17:19→22:00)
[2020-04-07] MEDS: Potassium Chloride Oral Tablet 20 MEQ PO (17:20)
[2020-04-07] MEDS: APIXABAN 2.5 MG TABLET PO (17:21)
[2020-04-07] MEDS: 0.9% Saline Lock 10 ML Syringe IV (21:05)
[2020-04-08 05:57] VITALS: BP 136/69; PULSE 75; RESP 16; TEMP 36.9; O2SAT 93
[2020-04-08] MEDS: APIXABAN 2.5 MG TABLET PO ×2 (06:00→17:00)
[2020-04-08] MEDS: Potassium Chloride Oral Tablet 20 MEQ PO ×2 (06:00→17:00)
[2020-04-08] MEDS: Escitalopram Oxalate 10 MG Tablet 5 MG PO (06:00)
[2020-04-08] MEDS: Furosemide 20 MG Tablet PO (06:00)
[2020-04-08] MEDS: Anastrozole 1 MG TABLET PO (06:00)
[2020-04-08] MEDS: Losartan Potassium 25 MG Tablet PO (06:00)
[2020-04-08] MEDS: amLODIPine 2.5 MG Tablet PO (06:00)
[2020-04-08] MEDS: Pantoprazole Sodium 20 MG Tablet PO (06:01)
[2020-04-08] MEDS: Senna/Docusate Sodium 1 Tablet 2 TABLET PO ×2 (06:01→17:00)
[2020-04-08] MEDS: Ascorbic Acid 500 MG Tablet 1000 MG PO (06:01)
--- NOTE | 2020-04-08 06:10 | NURSING ---
Patient states that she would like for some of her medication changed taking to many in the morning. Rn made aware
[2020-04-08 08:15] LABS: Absolute Lymphocyte Count 1.62 X10^3/uL (0.83-4.51); Absolute Neutrophil Count 4.9 X10^3/uL (2.0-7.7); Basophil# 0.05 X10^3/uL; Basophil% 0.7 % (0-1); Eosinophil# 0.12 X10^3/uL; Eosinophils% 1.6 % (0-5); Lymphocyte # 1.62 X10^3/ul (4.0); Lymphocyte % 21.8 % (19-41); Mean Corp Hgb Conc 31.6 g/dL (32-36); Mean Corpuscular Hgb 29.3 pg (27.0-32.0); Mean Corpuscular Volume 92.7 fL (81-99); Mean Platelet Vol. 11.5 fl (6.2-12.0); Monocyte# 0.63 X10^3/uL; Monocyte% 8.5 % (0-10); NRBC Flagged by Analyzer 0 % (0-5); Neutrophil # 4.91 X10^3/uL (2.7-7.7); Neutrophil % 66.1 % (47-70); Platelet Count 191 K/mm3 (150-450); RBC Distribution Width CV 12.8 % (11.6-14.6); RBC Distribution Width SD 43.6 fl (35.1-43.9); White Blood Count 7.4 K/mm3 (4.4-11.0)
[2020-04-08 08:48] LABS: Anion Gap 3 (5-15); BUN 15 mg/dL (7-18); BUN/Creat Ratio 22.3 RATIO (10-20); Calcium,Total 9.6 mg/dL (8.5-10.1); Chloride 103 mmol/L (98-107); Creatinine, Serum 0.67 mg/dL (0.55-1.02); EST Glomerular Filtration Rate 92 mL/min (>60); Est Glom Filt Rate - Afr Amer 111 mL/min (>60); Estimated Creatinine Clearance 49.69 ml/min; Glucose 119 mg/dL (74-106); Potassium 4.2 mmol/L (3.5-5.1); Sodium Level 135 mmol/L (136-145)
[2020-04-08] MEDS: Aspirin E.C. 81 MG Tablet PO (09:08)
[2020-04-08] MEDS: Acetaminophen 500 MG Tablet 1000 MG PO (09:12)
[2020-04-08] MEDS: Tuberculin,Purif.prot.deriv. 50 TU/ML Vial 5 ML ID (10:06)
[2020-04-08] MEDS: 0.9% Saline Lock 10 ML Syringe IV (10:10)
[2020-04-08 10:15] VITALS: PULSE 73; RESP 18; O2SAT 93
[2020-04-08 13:59] VITALS: BP 110/59; PULSE 74; RESP 18; TEMP 35.9; O2SAT 94
[2020-04-09 05:00] VITALS: BP 123/60; PULSE 77; RESP 18; TEMP 36.9; O2SAT 92
[2020-04-09] MEDS: Senna/Docusate Sodium 1 Tablet 2 TABLET PO (05:38)
[2020-04-09] MEDS: Losartan Potassium 25 MG Tablet PO (05:39)
[2020-04-09] MEDS: APIXABAN 2.5 MG TABLET PO ×2 (05:39→17:17)
[2020-04-09] MEDS: amLODIPine 2.5 MG Tablet PO (05:39)
[2020-04-09] MEDS: Furosemide 20 MG Tablet PO (05:39)
[2020-04-09] MEDS: Acetaminophen 500 MG Tablet 1000 MG PO (08:50)
[2020-04-09] MEDS: Aspirin E.C. 81 MG Tablet PO (08:52)
[2020-04-09] MEDS: Ascorbic Acid 500 MG Tablet 1000 MG PO (08:52)
[2020-04-09] MEDS: Potassium Chloride Oral Tablet 20 MEQ PO ×2 (08:52→17:17)
[2020-04-09] MEDS: Escitalopram Oxalate 10 MG Tablet 5 MG PO (08:53)
[2020-04-09] MEDS: Anastrozole 1 MG TABLET PO (08:54)
[2020-04-09] MEDS: 0.9% Saline Lock 10 ML Syringe IV (10:08)
[2020-04-09 14:52] VITALS: BP 113/62; PULSE 82; RESP 14; TEMP 36.7; O2SAT 95
[2020-04-09] MEDS: oxyCODONE 5 MG Tablet PO (20:10)
[2020-04-10 05:00] VITALS: BP 125/74; PULSE 77; RESP 18; TEMP 36.6; O2SAT 94
[2020-04-10] MEDS: Furosemide 20 MG Tablet PO (06:40)
[2020-04-10] MEDS: APIXABAN 2.5 MG TABLET PO ×2 (06:40→17:00)
[2020-04-10] MEDS: amLODIPine 2.5 MG Tablet PO (06:40)
[2020-04-10] MEDS: Losartan Potassium 25 MG Tablet PO (06:41)
[2020-04-10] MEDS: Pantoprazole Sodium 20 MG Tablet PO (06:44)
[2020-04-10] MEDS: Ascorbic Acid 500 MG Tablet 1000 MG PO (08:47)
[2020-04-10] MEDS: Potassium Chloride Oral Tablet 20 MEQ PO ×2 (08:47→17:00)
[2020-04-10] MEDS: Aspirin E.C. 81 MG Tablet PO (08:47)
[2020-04-10] MEDS: Escitalopram Oxalate 10 MG Tablet 5 MG PO (08:47)
[2020-04-10] MEDS: Anastrozole 1 MG TABLET PO (08:47)
[2020-04-10] MEDS: Acetaminophen 500 MG Tablet 1000 MG PO (10:10)
[2020-04-10] MEDS: oxyCODONE 5 MG Tablet PO ×2 (10:10→16:58)
--- NOTE | 2020-04-10 10:16 | PCM.PN.RX ---
<Malorie Jean - Last Filed: 04/10/20 10:16> Progress Note - Pharmacy Subjective: TCU Admission Objective: Allergies Antihistamines - Alkylamine Allergy (Severe, Verified 04/04/20 10:02) TACHYCARDIA REVIEWED ALL ALERGEN/ADVREAC ON 07-29-17 Antihistamines - Ethanolamine Allergy (Severe, Verified 04/04/20 10:02) TACHYCARDIA Antihistamines - Ethylenediamine Allergy (Severe, Verified 04/04/20 10:02) TACHYCARDIA Antihistamines - Piperazine Allergy (Severe, Verified 04/04/20 10:02) TACHYCARDIA Antihistamines - Piperidine Allergy (Severe, Verified 04/04/20 10:02) TACHYCARDIA diphenhydramine [From Benadryl] Allergy (Severe, Verified 04/04/20 10:02) TACHYCARDIA Current Medications Generic Name Dose Route Start Last Admin Trade Name Freq PRN Reason Stop Dose Admin Acetaminophen 1,000 mg 04/07/20 14:56 04/10/20 10:10 Acetaminophen 500 Mg Tablet PO 1,000 mg Q6H PRN PRN Administration Pain 1-10 or Fever Amlodipine Besylate 2.5 mg 04/08/20 06:00 04/10/20 06:40 Amlodipine 2.5 Mg Tablet PO 2.5 mg DAILY CELINE Administration Anastrozole 1 mg 04/09/20 08:00 04/10/20 08:47 Anastrozole 1 Mg Tablet PO 1 mg DAILYCM CELINE Administration Apixaban 2.5 mg 04/07/20 18:00 04/10/20 06:40 Apixaban 2.5 Mg Tablet PO 2.5 mg BID CELINE Administration Ascorbic Acid 1,000 mg 04/09/20 08:00 04/10/20 08:47 Ascorbic Acid 500 Mg Tablet PO 1,000 mg DAILYCM CELINE Administration Aspirin 81 mg 04/08/20 08:00 04/10/20 08:47 Aspirin E.C. 81 Mg Tablet PO 81 mg DAILYCM CELINE Administration Bisacodyl 10 mg 04/07/20 15:12 Bisacodyl 10 Mg Suppository RC DAILY PRN Constipation Cholecalciferol 5,000 unit 04/08/20 06:00 04/10/20 06:40 Cholecalciferol (Vit D3) 1,000 Unit (25mcg) PO 5,000 unit DAILY CELINE Administration Escitalopram Oxalate 5 mg 02/14/21 08:00 04/10/20 08:47 Escitalopram Oxalate 10 Mg Tablet PO 5 mg DAILYCM CELINE Administration Furosemide 20 mg 04/08/20 06:00 04/10/20 06:40 Furosemide 20 Mg Tablet PO 20 mg DAILY CELINE Administration Losartan Potassium 25 mg 04/08/20 06:00 04/10/20 06:41 Losartan Potassium 25 Mg Tablet PO 25 mg DAILY CELINE Administration Magnesium Hydroxide 30 ml 04/07/20 15:12 Magnesium Hydroxide 30 Ml Udc PO DAILY PRN Constipation Oxycodone HCl 5 mg 04/07/20 14:56 04/10/20 10:10 Oxycodone 5 Mg Tablet PO 5 mg Q4H PRN PRN Administration Pain Score 6-10 Pantoprazole Sodium 20 mg 04/08/20 06:00 04/10/20 06:44 Pantoprazole Sodium 20 Mg Tablet PO 20 mg QODAY@0600 CELINE Administration Polyethylene Glycol 17 gm 04/08/20 06:00 04/10/20 06:41 Polyethylene Glycol 3350 17 Gm Packet PO Not Given DAILY CELINE Potassium Chloride 20 meq 04/08/20 17:00 04/10/20 08:47 Potassium Chloride Oral Tablet 20 Meq PO 20 meq BIDCM CELINE Administration Senna/Docusate Sodium 2 tablet 04/07/20 18:00 04/10/20 06:40 Senna/Docusate Sodium 1 Tablet PO Not Given BID CELINE Sodium Chloride 10 - 40 ml 04/07/20 14:42 04/09/20 10:08 0.9% Saline Lock 10 Ml Syringe IV 10 ml UD PRN Administration SALINE FLUSH Tuberculin PPD 5 tu 04/15/20 10:00 Tuberculin,Purif.Prot.Deriv. 50 Tu/Ml Vial ID 04/15/20 10:01 X1 ONE Problem List (Last Reviewed 03/17/20 @ 11:02 by Marlene Augustin) Debility (Acute) Osteoarthritis of right knee (Chronic) Vitamin D deficiency (Chronic) Breast cancer (Chronic) Depression (Chronic) Edema (Chronic) Hypertension (Chronic) Osteoporosis (Chronic) Vital Signs Temp Pulse Resp BP Pulse Ox 97.8 F 77 18 125/74 H 94 04/10/20 05:00 04/10/20 05:00 04/10/20 05:00 04/10/20 05:00 04/10/20 05:00 Oxygen Delivery Method Room Air Weight: 61 kg Body Mass Index (BMI) 27.1 Sodium 135 mmol/L (136-145) L 04/08/20 07:22 Potassium 4.2 mmol/L (3.5-5.1) 04/08/20 07:22 Chloride 103 mmol/L (98-107) 04/08/20 07:22 Carbon Dioxide 29.0 mmol/L (21.0-32.0) 04/08/20 07:22 Anion Gap 3 (5-15) L 04/08/20 07:22 BUN 15 mg/dL (7-18) 04/08/20 07:22 Creatinine 0.67 mg/dL (0.55-1.02) 04/08/20 07:22 Est GFR (MDRD) Af Amer 111 mL/min (>60) 04/08/20 07:22 Est GFR (MDRD) Non-Af 92 mL/min (>60) 04/08/20 07:22 BUN/Creatinine Ratio 22.3 RATIO (10-20) H 04/08/20 07:22 Glucose 119 mg/dL (74-106) H 04/08/20 07:22 Assessment/Plan: 1. Pain: acetaminophen 1000mg PO Q6H PRN pain 1-10/10 and oxycodone 5mg PO Q6H PRN pain 6-10/10. Please continue to monitor for increased pain, PRN usage, constipation and respiratory depression. *2. DVT prophylaxis/CV prophylaxis: apixaban 2.5mg PO BID (thru 04/21/20) and aspirin 81mg PO DAILYCM. There is no stop date entered for apixaban. Please consider adding the stop date. Thanks. Please continue to monitor for S/S of bleeding/DVT, hemoglobin (last 12 g/dL) and platelets (191,000). 3. Hypertension: losartan 25mg PO daily and amlodipine 2.5mg PO daily. Please continue to monitor BP (last 125/74), HR (last 77), renal function and swelling. 4. Breast Cancer: anastrozole 1mg PO daily. Please continue to monitor for hot flashes and GI side effects. 5. GERD: pantoprazole 20mg PO every other day. Please continue to monitor for GI side effects. 6. Edema: furosemide 20mg PO daily. Please continue to monitor for edema, potassium levels, and renal function. 7. Hypokalemia: potassium chloride 20mEq PO BIDCM. Please continue to monitor potassium levels (last 4.2 mmol/L). *8. Vitamin deficiencies: cholecalciferol 5000units PO daily and ascorbic acid 1000mg PO DAILYCM. Please consider ordering a vitamin D level as patient does not have one in chart. Thanks. Psychotropic Medications: 1. Depression: escitalopram 5mg PO daily. Please see physician note regarding GDR. Unnecessary Medications: None *Bowel Regimen: Miralax 17gm PO daily, senna/docusate 2T PO BID, MOM 30mL PO daily PRN constipation, and bisacodyl 10mg RC daily PRN constipation. Please continue to monitor for S/S of constipation and PRN usage. Patient has refused 3/3 doses of Miralax. Please consider changing to PRN constipation. Thanks. Date of Note:: 04/10/20 - Provider Comments Provider responsibility: Provider responsible to enter orders to implement recommendations <Chidi Short Chi - Last Filed: 04/10/20 11:05> Progress Note - Pharmacy Subjective: [] Objective: Allergies Antihistamines - Alkylamine Allergy (Severe, Verified 04/04/20 10:02) TACHYCARDIA REVIEWED ALL ALERGEN/ADVREAC ON 618 Antihistamines - Ethanolamine Allergy (Severe, Verified 04/04/20 10:02) TACHYCARDIA Antihistamines - Ethylenediamine Allergy (Severe, Verified 04/04/20 10:02) TACHYCARDIA Antihistamines - Piperazine Allergy (Severe, Verified 04/04/20 10:02) TACHYCARDIA Antihistamines - Piperidine Allergy (Severe, Verified 04/04/20 10:02) TACHYCARDIA diphenhydramine [From Benadryl] Allergy (Severe, Verified 04/04/20 10:02) TACHYCARDIA Current Medications Generic Name Dose Route Start Last Admin Trade Name Freq PRN Reason Stop Dose Admin Acetaminophen 1,000 mg 04/07/20 14:56 04/10/20 10:10 Acetaminophen 500 Mg Tablet PO 1,000 mg Q6H PRN PRN Administration Pain 1-10 or Fever Amlodipine Besylate 2.5 mg 04/08/20 06:00 04/10/20 06:40 Amlodipine 2.5 Mg Tablet PO 2.5 mg DAILY CELINE Administration Anastrozole 1 mg 04/09/20 08:00 04/10/20 08:47 Anastrozole 1 Mg [facility] Administration Apixaban 2.5 mg 04/07/20 18:00 04/10/20 06:40 Apixaban 2.5 Mg Tablet PO 2.5 mg BID [facility] Administration Ascorbic Acid 1,000 mg 04/09/20 08:00 04/10/20 08:47 Ascorbic Acid 500 Mg Tablet PO 1,000 mg [facility] Administration Aspirin 81 mg 04/08/20 08:00 04/10/20 08:47 Aspirin E.C. 81 Mg Tablet PO 81 mg [facility] Administration Bisacodyl 10 mg 04/07/20 15:12 Bisacodyl 10 Mg Suppository RC DAILY PRN Constipation Cholecalciferol 5,000 unit 04/08/20 06:00 04/10/20 06:40 Cholecalciferol (Vit D3) 1,000 Unit (25mcg) PO 5,000 unit DAILY [facility] Administration Escitalopram Oxalate 5 mg 04/09/20 08:00 04/10/20 08:47 Escitalopram Oxalate 10 Mg Tablet PO 5 mg [facility] Administration Furosemide 20 mg 04/08/20 06:00 04/10/20 06:40 Furosemide 20 Mg Tablet PO 20 mg DAILY [facility] Administration Losartan Potassium 25 mg 04/08/20 06:00 04/10/20 06:41 Losartan Potassium 25 Mg Tablet PO 25 mg DAILY [facility] Administration Magnesium Hydroxide 30 ml 04/07/20 15:12 Magnesium Hydroxide 30 Ml Udc PO DAILY PRN Constipation Oxycodone HCl 5 mg 04/07/20 14:56 04/10/20 10:10 Oxycodone 5 Mg Tablet PO 5 mg Q4H PRN PRN Administration Pain Score 6-10 Pantoprazole Sodium 20 mg 04/08/20 06:00 04/10/20 06:44 Pantoprazole Sodium 20 Mg Tablet PO 20 mg QODAY@0600 [facility] Administration Polyethylene Glycol 17 gm 04/08/20 06:00 04/10/20 06:41 Polyethylene Glycol 3350 17 Gm Packet PO Not Given DAILY [facility] Potassium Chloride 20 meq 04/08/20 17:00 04/10/20 08:47 Potassium Chloride Oral Tablet 20 Meq PO 20 meq [facility] Administration Senna/Docusate Sodium 2 tablet 04/07/20 18:00 04/10/20 06:40 Senna/Docusate Sodium 1 Tablet PO Not Given BID CELINE Sodium Chloride 10 - 40 ml 04/07/20 14:42 04/09/20 10:08 0.9% Saline Lock 10 Ml Syringe IV 10 ml UD PRN Administration SALINE FLUSH Tuberculin PPD 5 tu 04/15/20 10:00 Tuberculin,Purif.Prot.Deriv. 50 Tu/Ml Vial ID 04/15/20 10:01 X1 ONE Problem List (Last Reviewed 03/17/20 @ 11:02 by Marlene Augustin) Debility (Acute) Osteoarthritis of right knee (Chronic) Vitamin D deficiency (Chronic) Breast cancer (Chronic) Depression (Chronic) Edema (Chronic) Hypertension (Chronic) Osteoporosis (Chronic) Vital Signs Temp Pulse Resp BP Pulse Ox 97.8 F 77 18 125/74 H 94 04/10/20 05:00 04/10/20 05:00 04/10/20 05:00 04/10/20 05:00 04/10/20 05:00 Oxygen Delivery Method Room Air Weight: 61 kg Body Mass Index (BMI) 27.1 Sodium 135 mmol/L (136-145) L 04/08/20 07:22 Potassium 4.2 mmol/L (3.5-5.1) 04/08/20 07:22 Chloride 103 mmol/L (98-107) 04/08/20 07:22 Carbon Dioxide 29.0 mmol/L (21.0-32.0) 04/08/20 07:22 Anion Gap 3 (5-15) L 04/08/20 07:22 BUN 15 mg/dL (7-18) 04/08/20 07:22 Creatinine 0.67 mg/dL (0.55-1.02) 04/08/20 07:22 Est GFR (MDRD) Af Amer 111 mL/min (>60) 04/08/20 07:22 Est GFR (MDRD) Non-Af 92 mL/min (>60) 04/08/20 07:22 BUN/Creatinine Ratio 22.3 RATIO (10-20) H 04/08/20 07:22 Glucose 119 mg/dL (74-106) H 04/08/20 07:22 Assessment/Plan: Psychotropic Medications: Unnecessary Medications: Bowel Regimen: - Provider Comments Provider responsibility: Provider responsible to enter orders to implement recommendations Provider Comments to Recommendations by Pharmacy: Agree
[2020-04-10 14:32] VITALS: BP 112/66; PULSE 74; RESP 18; TEMP 36.5; O2SAT 95
--- NOTE | 2020-04-10 15:51 | NURSING ---
Saline lock d/c today, pt tolerated well IV catheter intact
[2020-04-11 05:00] VITALS: BP 128/68; PULSE 80; RESP 16; TEMP 36.8; O2SAT 94
[2020-04-11] MEDS: Losartan Potassium 25 MG Tablet PO (05:29)
[2020-04-11] MEDS: amLODIPine 2.5 MG Tablet PO (05:29)
[2020-04-11] MEDS: APIXABAN 2.5 MG TABLET PO ×2 (05:29→17:28)
[2020-04-11] MEDS: Furosemide 20 MG Tablet PO (05:29)
[2020-04-11] MEDS: Senna/Docusate Sodium 1 Tablet 2 TABLET PO ×2 (05:32→17:29)
[2020-04-11] MEDS: oxyCODONE 5 MG Tablet PO ×2 (07:00→11:30)
[2020-04-11] MEDS: Aspirin E.C. 81 MG Tablet PO (08:53)
[2020-04-11] MEDS: Potassium Chloride Oral Tablet 20 MEQ PO ×2 (08:53→17:29)
[2020-04-11] MEDS: Anastrozole 1 MG TABLET PO (08:54)
[2020-04-11] MEDS: Escitalopram Oxalate 10 MG Tablet 5 MG PO (08:54)
[2020-04-11] MEDS: Ascorbic Acid 500 MG Tablet 1000 MG PO (08:55)
[2020-04-11 12:40] VITALS: BP 114/63; PULSE 74; RESP 18; TEMP 36.4; O2SAT 944
[2020-04-11 21:45] VITALS: PULSE 88; RESP 16; O2SAT 95
--- NOTE | 2020-04-12 00:51 | PCA ---
Patient stated they would like to get cleaned in the morning. Maryellen is an ADL with therapy in the morning
[2020-04-12 05:00] VITALS: BP 119/65; PULSE 78; RESP 16; TEMP 36.8; O2SAT 94
[2020-04-12] MEDS: oxyCODONE 5 MG Tablet PO ×3 (05:41→20:55)
[2020-04-12] MEDS: amLODIPine 2.5 MG Tablet PO (05:42)
[2020-04-12] MEDS: Furosemide 20 MG Tablet PO (05:42)
[2020-04-12] MEDS: Losartan Potassium 25 MG Tablet PO (05:42)
[2020-04-12] MEDS: APIXABAN 2.5 MG TABLET PO ×2 (05:42→17:25)
[2020-04-12] MEDS: Pantoprazole Sodium 20 MG Tablet PO (05:44)
[2020-04-12] MEDS: Anastrozole 1 MG TABLET PO (08:06)
[2020-04-12] MEDS: Escitalopram Oxalate 10 MG Tablet 5 MG PO (08:07)
[2020-04-12] MEDS: Aspirin E.C. 81 MG Tablet PO (08:07)
[2020-04-12] MEDS: Potassium Chloride Oral Tablet 20 MEQ PO ×2 (08:07→17:25)
[2020-04-12] MEDS: Ascorbic Acid 500 MG Tablet 1000 MG PO (08:07)
[2020-04-12 10:00] VITALS: PULSE 81; RESP 18; O2SAT 95
[2020-04-12 14:33] VITALS: BP 121/53; PULSE 78; RESP 15; TEMP 36.5; O2SAT 94
--- NOTE | 2020-04-12 14:38 | CASEMGMT ---
Social Work IDT met with patient and via conference call for care plan meeting. Discussed patient's progress in therapy and nursing. Therapy will practice box steps with pt. Pt is out of isolation 04/21. The goal is for pt to return home with at PLOF. pt has 4 steps to enter, independent prior and did not use AD. just discharged from hospital for s/p COVID and was admitted for about four weeks. is still recovering and pt should be close to PLOF at [place]. Explained [facility] insurance with NRD 04/12 and continued stay is not guaranteed. SW will continue to follow for DC plans. SHERMAN BeachW
--- NOTE | 2020-04-12 14:49 | NURSING ---
Pt refused to have dressing changed to knee today stated she just had it changed this morning after her shower.
[2020-04-13 05:00] VITALS: BP 123/64; PULSE 76; RESP 16; TEMP 36.8; O2SAT 93
[2020-04-13] MEDS: Losartan Potassium 25 MG Tablet PO (05:56)
[2020-04-13] MEDS: APIXABAN 2.5 MG TABLET PO ×2 (05:56→17:47)
[2020-04-13] MEDS: Furosemide 20 MG Tablet PO (05:58)
[2020-04-13] MEDS: amLODIPine 2.5 MG Tablet PO (05:59)
[2020-04-13] MEDS: Senna/Docusate Sodium 1 Tablet 2 TABLET PO ×2 (06:00→17:47)
[2020-04-13] MEDS: oxyCODONE 5 MG Tablet PO ×3 (07:17→20:09)
[2020-04-13] MEDS: Potassium Chloride Oral Tablet 20 MEQ PO ×2 (09:11→17:47)
[2020-04-13] MEDS: Escitalopram Oxalate 10 MG Tablet 5 MG PO (09:12)
[2020-04-13] MEDS: Aspirin E.C. 81 MG Tablet PO (09:14)
[2020-04-13] MEDS: Anastrozole 1 MG TABLET PO (09:15)
[2020-04-13] MEDS: Ascorbic Acid 500 MG Tablet 1000 MG PO (09:15)
[2020-04-13 15:17] VITALS: BP 112/73; PULSE 77; RESP 16; TEMP 36.3; O2SAT 93
[2020-04-13] MEDS: Acetaminophen 500 MG Tablet 1000 MG PO (20:09)
[2020-04-13 23:34] VITALS: PULSE 75; RESP 16; O2SAT 93
[2020-04-14 03:13] VITALS: BP 108/53; PULSE 75; RESP 16; TEMP 36.6; O2SAT 93
[2020-04-14] MEDS: Furosemide 20 MG Tablet PO (05:56)
[2020-04-14] MEDS: Losartan Potassium 25 MG Tablet PO (05:56)
[2020-04-14] MEDS: Senna/Docusate Sodium 1 Tablet 2 TABLET PO (05:56)
[2020-04-14] MEDS: APIXABAN 2.5 MG TABLET PO ×2 (05:56→17:11)
[2020-04-14] MEDS: amLODIPine 2.5 MG Tablet PO (05:56)
[2020-04-14] MEDS: Pantoprazole Sodium 20 MG Tablet PO (05:56)
[2020-04-14] MEDS: Acetaminophen 500 MG Tablet 1000 MG PO ×2 (06:01→23:33)
[2020-04-14] MEDS: oxyCODONE 5 MG Tablet PO ×2 (06:01→19:59)
[2020-04-14] MEDS: Aspirin E.C. 81 MG Tablet PO (09:00)
[2020-04-14] MEDS: Ascorbic Acid 500 MG Tablet 1000 MG PO (09:01)
[2020-04-14] MEDS: Anastrozole 1 MG TABLET PO (09:01)
[2020-04-14] MEDS: Potassium Chloride Oral Tablet 20 MEQ PO ×2 (09:01→17:12)
[2020-04-14] MEDS: Escitalopram Oxalate 10 MG Tablet 5 MG PO (09:01)
[2020-04-14 10:40] VITALS: PULSE 68; RESP 18; O2SAT 95
[2020-04-14 13:37] VITALS: BP 108/54; PULSE 16; RESP 16; TEMP 36.3; O2SAT 95
[2020-04-14] MEDS: Nystatin Powder 15gm Bottle 1 APPLIC TOPICAL (17:11)
[2020-04-15 05:00] VITALS: BP 109/59; PULSE 69; RESP 18; TEMP 36.6; O2SAT 94
[2020-04-15] MEDS: oxyCODONE 5 MG Tablet PO ×2 (06:17→10:24)
[2020-04-15] MEDS: Nystatin Powder 15gm Bottle 1 APPLIC TOPICAL ×2 (06:18→17:34)
[2020-04-15] MEDS: amLODIPine 2.5 MG Tablet PO (06:18)
[2020-04-15] MEDS: Losartan Potassium 25 MG Tablet PO (06:18)
[2020-04-15] MEDS: Furosemide 20 MG Tablet PO (06:18)
[2020-04-15] MEDS: APIXABAN 2.5 MG TABLET PO ×2 (06:18→17:32)
[2020-04-15 07:32] LABS: Absolute Neutrophil Count 3.9 X10^3/uL (2.0-7.7); Basophil# 0.04 X10^3/uL; Basophil% 0.7 % (0-1); Eosinophil# 0.15 X10^3/uL; Eosinophils% 2.5 % (0-5); Hematocrit 36.2 % (37-47); Hemoglobin 11.2 g/dL (12.0-15.0); Lymphocyte % 24.8 % (19-41); Mean Corp Hgb Conc 30.9 g/dL (32-36); Mean Corpuscular Volume 93.8 fL (81-99); Mean Platelet Vol. 10.7 fl (6.2-12.0); Monocyte# 0.47 X10^3/uL; Monocyte% 7.8 % (0-10); NRBC Flagged by Analyzer 0 % (0-5); Neutrophil # 3.85 X10^3/uL (2.7-7.7); Neutrophil % 63.4 % (47-70); Platelet Count 291 K/mm3 (150-450); RBC Distribution Width CV 12.9 % (11.6-14.6); RBC Distribution Width SD 44.1 fl (35.1-43.9); Red Blood Count 3.86 M/mm3 (4.2-5.4); White Blood Count 6.1 K/mm3 (4.4-11.0)
[2020-04-15 07:47] LABS: Anion Gap 5 (5-15); BUN 17 mg/dL (7-18); BUN/Creat Ratio 26.5 RATIO (10-20); Calcium,Total 9.5 mg/dL (8.5-10.1); Chloride 101 mmol/L (98-107); Creatinine, Serum 0.64 mg/dL (0.55-1.02); EST Glomerular Filtration Rate 97 mL/min (>60); Est Glom Filt Rate - Afr Amer 117 mL/min (>60); Estimated Creatinine Clearance 48.84 ml/min; Glucose 166 mg/dL (74-106); Potassium 3.5 mmol/L (3.5-5.1); Sodium Level 138 mmol/L (136-145)
[2020-04-15] MEDS: Anastrozole 1 MG TABLET PO (07:58)
[2020-04-15] MEDS: Escitalopram Oxalate 10 MG Tablet 5 MG PO (07:59)
[2020-04-15] MEDS: Aspirin E.C. 81 MG Tablet PO (07:59)
[2020-04-15] MEDS: Potassium Chloride Oral Tablet 20 MEQ PO ×2 (07:59→17:32)
[2020-04-15] MEDS: Ascorbic Acid 500 MG Tablet 1000 MG PO (08:00)
[2020-04-15] MEDS: Tuberculin,Purif.prot.deriv. 50 TU/ML Vial 5 ML ID (10:21)
[2020-04-15 15:15] VITALS: BP 113/58; PULSE 74; RESP 14; TEMP 36.8; O2SAT 94
[2020-04-16] MEDS: Losartan Potassium 25 MG Tablet PO (03:59)
[2020-04-16] MEDS: APIXABAN 2.5 MG TABLET PO ×2 (03:59→17:07)
[2020-04-16] MEDS: Pantoprazole Sodium 20 MG Tablet PO (04:00)
[2020-04-16] MEDS: Furosemide 20 MG Tablet PO (04:00)
[2020-04-16] MEDS: amLODIPine 2.5 MG Tablet PO (04:00)
[2020-04-16] MEDS: Nystatin Powder 15gm Bottle 1 APPLIC TOPICAL ×2 (04:01→17:09)
[2020-04-16] MEDS: oxyCODONE 5 MG Tablet PO ×2 (04:02→13:46)
[2020-04-16] MEDS: Iron Polysaccharide Complex 150 MG CAPSULE PO (04:02)
[2020-04-16 04:04] VITALS: BP 129/58; PULSE 72; RESP 18; TEMP 36.6; O2SAT 96
[2020-04-16] MEDS: Anastrozole 1 MG TABLET PO (08:27)
[2020-04-16] MEDS: Escitalopram Oxalate 10 MG Tablet 5 MG PO (08:28)
[2020-04-16] MEDS: Ascorbic Acid 500 MG Tablet 1000 MG PO (08:29)
[2020-04-16] MEDS: Potassium Chloride Oral Tablet 20 MEQ PO ×2 (08:29→17:06)
[2020-04-16] MEDS: Aspirin E.C. 81 MG Tablet PO (08:29)
[2020-04-16 10:00] VITALS: PULSE 70; O2SAT 92
[2020-04-16 14:13] VITALS: BP 109/60; PULSE 76; RESP 14; TEMP 36.7; O2SAT 100
[2020-04-16] MEDS: Senna/Docusate Sodium 1 Tablet 2 TABLET PO (17:06)
[2020-04-16] MEDS: Acetaminophen 500 MG Tablet 1000 MG PO (17:24)
[2020-04-17 03:07] VITALS: BP 111/52; PULSE 75; RESP 16; TEMP 36.7; O2SAT 95
[2020-04-17] MEDS: amLODIPine 2.5 MG Tablet PO (05:31)
[2020-04-17] MEDS: Iron Polysaccharide Complex 150 MG CAPSULE PO (05:31)
[2020-04-17] MEDS: Losartan Potassium 25 MG Tablet PO (05:31)
[2020-04-17] MEDS: APIXABAN 2.5 MG TABLET PO ×2 (05:31→17:42)
[2020-04-17] MEDS: Furosemide 20 MG Tablet PO (05:31)
[2020-04-17] MEDS: Nystatin Powder 15gm Bottle 1 APPLIC TOPICAL ×2 (05:32→17:43)
[2020-04-17 05:53] LABS: Hematocrit 35.8 % (37-47); Hemoglobin 11.3 g/dL (12.0-15.0)
[2020-04-17] MEDS: Ascorbic Acid 500 MG Tablet 1000 MG PO (08:14)
[2020-04-17] MEDS: Escitalopram Oxalate 10 MG Tablet 5 MG PO (08:14)
[2020-04-17] MEDS: Aspirin E.C. 81 MG Tablet PO (08:14)
[2020-04-17] MEDS: Anastrozole 1 MG TABLET PO (08:15)
[2020-04-17] MEDS: Potassium Chloride Oral Tablet 20 MEQ PO ×2 (08:15→17:42)
[2020-04-17] MEDS: oxyCODONE 5 MG Tablet PO (08:18)
--- NOTE | 2020-04-17 12:36 | NURSING ---
pt left unit to go to appt
--- NOTE | 2020-04-17 13:16 | MDS.RN ---
Information for the mds was obtained from review of the clinical record, interview of resident, staff, and direct observation of resident's care.
--- NOTE | 2020-04-17 13:44 | NURSING ---
ISRRAEL Alvarez calls from Dr Zuleta's office. She states that Dr Zuleta would like orders entered for resident to have a doppler to her RLE to be done today. Also to increased Oxycodone from 5mg to 10mg Q 4 hrs prn and to make the tylenol scheduled. Orders entered at this time.
[2020-04-17] MEDS: Acetaminophen 500 MG Tablet 1000 MG PO ×2 (14:42→19:51)
[2020-04-17 15:00] VITALS: BP 124/56; PULSE 79; RESP 16; TEMP 37; O2SAT 94
--- NOTE | 2020-04-17 15:35 | NURSING ---
PT STATED SHE WILL UPDATE SON.
--- NOTE | 2020-04-17 15:40 | NURSING ---
PT WENT TO SEE TODAY. NEW ORDER FOR A DOPPLER TO RIGHT LOWER LEG DUE TO PT COMPLAINT OF PAIN IN RIGHT CALF. RN AWARE
--- NOTE | 2020-04-17 16:13 | NURSING ---
DOPPLER TO RIGHT LOWER LEG CAME BACK NEGATIVE. RN AWARE
[2020-04-17 19:51] VITALS: PULSE 77; RESP 16; O2SAT 99
[2020-04-18] MEDS: Acetaminophen 500 MG Tablet 1000 MG PO ×4 (01:50→20:16)
[2020-04-18 02:32] VITALS: BP 105/49; PULSE 77; RESP 16; TEMP 36.9; O2SAT 100
[2020-04-18] MEDS: oxyCODONE 5 MG Tablet 10 MG PO ×2 (03:33→10:55)
[2020-04-18] MEDS: Pantoprazole Sodium 20 MG Tablet PO (05:18)
[2020-04-18] MEDS: Senna/Docusate Sodium 1 Tablet 2 TABLET PO (05:18)
[2020-04-18] MEDS: Furosemide 20 MG Tablet PO (05:18)
[2020-04-18] MEDS: APIXABAN 2.5 MG TABLET PO ×2 (05:18→17:37)
[2020-04-18] MEDS: Iron Polysaccharide Complex 150 MG CAPSULE PO (05:18)
[2020-04-18] MEDS: Losartan Potassium 25 MG Tablet PO (05:18)
[2020-04-18] MEDS: amLODIPine 2.5 MG Tablet PO (05:18)
[2020-04-18] MEDS: Nystatin Powder 15gm Bottle 1 APPLIC TOPICAL ×2 (05:20→17:40)
[2020-04-18] MEDS: Potassium Chloride Oral Tablet 20 MEQ PO ×2 (08:40→17:37)
[2020-04-18] MEDS: Anastrozole 1 MG TABLET PO (08:40)
[2020-04-18] MEDS: Escitalopram Oxalate 10 MG Tablet 5 MG PO (08:40)
[2020-04-18] MEDS: Aspirin E.C. 81 MG Tablet PO (08:40)
[2020-04-18] MEDS: Ascorbic Acid 500 MG Tablet 1000 MG PO (08:41)
[2020-04-18 09:30] VITALS: PULSE 78; RESP 18; O2SAT 95
[2020-04-18 12:39] VITALS: BP 108/56; PULSE 70; RESP 16; TEMP 36.2; O2SAT 95
--- NOTE | 2020-04-18 15:37 | NURSING ---
PT STATED SHE UPDATES FAMILY
[2020-04-19] MEDS: Acetaminophen 500 MG Tablet 1000 MG PO ×4 (02:07→21:01)
[2020-04-19 05:00] VITALS: BP 114/66; PULSE 68; RESP 16; TEMP 36.7; O2SAT 94
[2020-04-19] MEDS: Iron Polysaccharide Complex 150 MG CAPSULE PO (06:13)
[2020-04-19] MEDS: Escitalopram Oxalate 10 MG Tablet 5 MG PO (06:13)
[2020-04-19] MEDS: Losartan Potassium 25 MG Tablet PO (06:13)
[2020-04-19] MEDS: amLODIPine 2.5 MG Tablet PO (06:13)
[2020-04-19] MEDS: APIXABAN 2.5 MG TABLET PO ×2 (06:14→17:31)
[2020-04-19] MEDS: Furosemide 20 MG Tablet PO (06:14)
[2020-04-19] MEDS: Senna/Docusate Sodium 1 Tablet 2 TABLET PO (06:14)
[2020-04-19] MEDS: Potassium Chloride Oral Tablet 20 MEQ PO ×2 (08:01→17:30)
[2020-04-19] MEDS: Aspirin E.C. 81 MG Tablet PO (08:02)
[2020-04-19] MEDS: Anastrozole 1 MG TABLET PO (08:02)
[2020-04-19] MEDS: Ascorbic Acid 500 MG Tablet 1000 MG PO (08:03)
[2020-04-19] MEDS: oxyCODONE 5 MG Tablet 10 MG PO (12:31)
[2020-04-19 13:36] VITALS: BP 111/61; PULSE 83; RESP 18; TEMP 36.6; O2SAT 96
--- NOTE | 2020-04-19 16:50 | CASEMGMT ---
Social Work Insurance issued LCD 04/21, DC 04/22. Notified pt of DC date and appeal rights. Pt agreeable to DC. Pt agreeable to HHC vs OP. Provided [facility] list of providers including quality and resource use data and consistent with the patient?s preferred geographic region, medical needs, and insurance network. Inquired about preference - pt prefers [facility]. Referral made to [facility] PT/OT. Pt requesting FWW. Referral made to [facility]. Son to transport. Plan: DC home with , [facility] PT/OT, FWW Aida Warner, FOOD CHECKER CONTROL BOARD OPERATOR
[2020-04-19] MEDS: Nystatin Powder 15gm Bottle 1 APPLIC TOPICAL (17:31)
--- NOTE | 2020-04-19 19:00 | DCINST_ITS ---
- Discharge Diagnoses Current Active Problems: Current Active and Chronic Problems (Last Reviewed 03/17/20 @ 11:02 by Marlene Augustin) Debility (Acute) Osteoarthritis of right knee (Chronic) Vitamin D deficiency (Chronic) Breast cancer (Chronic) Depression (Chronic) Edema (Chronic) Hypertension (Chronic) Osteoporosis (Chronic) You will use the following diet at home:: No restrictions, Regular Your food should be the consistency of: Regular Your liquids should be the consistency of: Regular/Thin Discharge Activity: May Shower, Use Walker Weight Bearing Status: Weight bearing as tolerated Call your doctor if you observe: Fever of 101 or Higher, Inability to urinate, Inability to have a bowel movement, Shortness of breath, Chest pain, Uncontrolled pain Allergies/Adverse Reactions: Allergies Antihistamines - Alkylamine Allergy (Severe, Verified 04/04/20 10:02) TACHYCARDIA REVIEWED ALL ALERGEN/ADVREAC ON 07-29-17 Antihistamines - Ethanolamine Allergy (Severe, Verified 04/04/20 10:02) TACHYCARDIA Antihistamines - Ethylenediamine Allergy (Severe, Verified 04/04/20 10:02) TACHYCARDIA Antihistamines - Piperazine Allergy (Severe, Verified 04/04/20 10:02) TACHYCARDIA Antihistamines - Piperidine Allergy (Severe, Verified 04/04/20 10:02) TACHYCARDIA diphenhydramine [From Benadryl] Allergy (Severe, Verified 04/04/20 10:02) TACHYCARDIA Medications to take at Discharge cholecalciferol (vitamin D3) 25 mcg (1,000 unit) capsule 5,000 unit PO QDAY cap 06/13/17 Ascorbic Acid [Vitamin C] 1,000 mg PO DAILY 05/29/18 Aspirin [Aspir 81] 81 mg PO DAILY 05/29/18 Omeprazole Magnesium [Prilosec Otc] 20 mg PO QODAY 03/21/20 Acetaminophen [Tylenol] 1,000 mg PO Q6H PRN PRN 04/07/20 Amlodipine Besylate 2.5 mg PO QDAY 04/07/20 Anastrozole [Arimidex] 1 mg PO DAILY 04/07/20 Denosumab [Prolia] 60 mg SC [id number] 04/07/20 Escitalopram Oxalate 5 mg PO QDAY 04/07/20 Furosemide [Lasix] 20 mg PO DAILY 04/07/20 Losartan Potassium [Cozaar] 25 mg PO DAILY 04/07/20 Iron Polysaccharide Complex [Ferrex 150] 150 mg PO DAILY #30 cap 04/19/20 Nystatin Powder [Mycostatin Powder] 1 applic TOPICAL BID bottle 04/19/20 Oxycodone [Oxyir] 5 mg PO Q4H PRN PRN #42 tab 04/19/20 Polyethylene Glycol 3350 [Miralax] 17 gm PO DAILY #30 packet 04/19/20 Potassium Chloride [K-Tab ER] 20 meq PO BID #60 04/19/20 Senna/Docusate Sodium [Senokot-S] 2 tab PO BID #120 tab 04/19/20 The following prescriptions were given: Iron Polysaccharide Complex [Ferrex 150] 150 mg PO DAILY #30 cap Transmission Status: Pending to [facility] Potassium Chloride [K-Tab ER] 20 meq PO BID #60 Prescription Printed Polyethylene Glycol 3350 [Miralax] 17 gm PO DAILY #30 packet Transmission Status: Pending to [facility] Oxycodone [Oxyir] 5 mg PO Q4H PRN PRN #42 tab PRN Reason: Pain Score 6-10 Transmission Status: Received by [facility] [id number] Senna/Docusate Sodium [Senokot-S] 2 tab PO BID #120 tab Transmission Status: Pending to [facility] Primary Care Physician: Weston Tobar MD [Primary Care Provider] - Please follow up with your Primary Care Physician in: 1 week. Test Results: Test results from this visit will be discussed in further detail at your follow- up appointment, if applicable. Please Follow Up With: Dr. Zuleta When: 04/17/2020 Proposed Discharge Date: 04/22/20
--- NOTE | 2020-04-19 19:01 | PCM.DC.SUM ---
Discharge Date and Diagnosis - Problem List Patient Problems: Active and Suspected Problems (Last Reviewed 03/17/20 @ 11:02 by Marlene Augustin) Debility (Acute) Date of Admission: 04/07/20 Date of Discharge: 04/22/20 - Primary Discharge Diagnosis Acute Problems: Active Problems (Last Reviewed 03/17/20 @ 11:02 by Marlene Augustin) Debility (Acute) - Secondary Discharge Diagnosis Chronic Problems: Chronic Problems (Last Reviewed 03/17/20 @ 11:02 by Marlene Augustin) Osteoarthritis of right knee (Chronic) Vitamin D deficiency (Chronic) Breast cancer (Chronic) Depression (Chronic) Edema (Chronic) Tobacco abuse (Chronic) Vaginal dryness (Chronic) Hypertension (Chronic) Neck pain (Chronic) Osteoporosis (Chronic) Acute internal jugular vein thrombosis (Chronic) Left status post left IJ Port-A-Cath, which has been removed Chronic back pain (Chronic) IBS (irritable bowel syndrome) (Chronic) GERD (gastroesophageal reflux disease) (Chronic) Rheumatoid arthritis (Chronic) Anxiety and depression (Chronic) Invasive ductal carcinoma of right breast (Chronic) Hospital Course and Treatment Imaging Results: 04/07/20 15:01 Diet: Regular - General Food consistency:: Regular Liquid Consistency:: Regular/Thin Is pt able to select menu?: Yes Operations: None Procedures: None Summary of Care Provided: The patient is a 70 year old Female with below past medical history hospitalized for CT guided, robotic assisted right total knee arthroplasty 04/04/2020, admitted to TCU with debility, here for rehabilitation, strengthening, prior to discharge home with . Discharge home with , [facility] PT/OT, Front wheeled walker. Patient Problems: Active and Suspected Problems (Last Reviewed 03/17/20 @ 11:02 by Marlene Augustin) Debility (Acute) - Physical Exam Vitals/I&O's: Vital Signs Temp Pulse Resp BP Pulse Ox 97.9 F 83 18 111/61 96 04/19/20 13:36 04/19/20 13:36 04/19/20 13:36 04/19/20 13:36 04/19/20 13:36 Oxygen Delivery Method Room Air Weight: 60.838 kg Body Mass Index (BMI) 27.1 Intake and Output for Last 24 Hours 04/17/20 04/18/20 04/19/20 23:59 23:59 23:59 Intake Total 1060 / 1060 960 / 960 960 / 960 Balance 1060 / 1060 960 / 960 960 / 960 Current Medications Acetaminophen (Acetaminophen 500 Mg Tablet) 1,000 mg PO Q6H [facility] Last Admin: 04/19/20 14:47 Dose: 1,000 mg Documented by: Amlodipine Besylate (Amlodipine 2.5 Mg Tablet) 2.5 mg PO DAILY [facility] Last Admin: 04/19/20 06:13 Dose: 2.5 mg Documented by: Anastrozole ([facility] 1 Mg Tablet) [facility] Last Admin: 04/19/20 08:02 Dose: 1 mg Documented by: Apixaban (Apixaban 2.5 Mg Tablet) 2.5 mg PO BID [facility] Last Admin: 04/19/20 17:31 Dose: 2.5 mg Documented by: Ascorbic Acid (Ascorbic Acid 500 Mg Tablet) 1,[facility] Last Admin: 04/19/20 08:03 Dose: 1,000 mg Documented by: Aspirin (Aspirin E.C. 81 Mg Tablet) 81 [facility] Last Admin: 04/19/20 08:02 Dose: 81 mg Documented by: Bisacodyl (Bisacodyl 10 Mg Suppository) 10 mg RC DAILY PRN PRN Reason: Constipation Cholecalciferol (Cholecalciferol (Vit D3) 1,000 Unit (25mcg)) 5,000 unit PO DAILY [facility] Last Admin: 04/19/20 06:14 Dose: 5,000 unit Documented by: Escitalopram Oxalate (Escitalopram Oxalate 10 Mg Tablet) 5 [facility] Last Admin: 04/19/20 06:13 Dose: 5 mg Documented by: Furosemide (Furosemide 20 Mg Tablet) 20 mg PO DAILY [facility] Last Admin: 04/19/20 06:14 Dose: 20 mg Documented by: Losartan Potassium (Losartan Potassium 25 Mg Tablet) 25 mg PO DAILY [facility] Last Admin: 04/19/20 06:13 Dose: 25 mg Documented by: Magnesium Hydroxide (Magnesium Hydroxide 30 Ml Udc) 30 ml PO DAILY PRN PRN Reason: Constipation Nystatin (Nystatin Powder 15gm Bottle) 1 applic TOPICAL BID [facility]; Protocol Last Admin: 04/19/20 17:31 Dose: 1 applicatio Documented by: Oxycodone HCl (Oxycodone 5 Mg Tablet) 10 mg PO Q4H PRN PRN PRN Reason: Pain Score 6-10 Last Admin: 04/19/20 12:31 Dose: 10 mg Documented by: Pantoprazole Sodium (Pantoprazole Sodium 20 Mg Tablet) 20 mg PO QODAY@0600 [facility] Last Admin: 04/18/20 05:18 Dose: 20 mg Documented by: Polyethylene Glycol (Polyethylene Glycol 3350 17 Gm Packet) 17 gm PO DAILY [facility] Last Admin: 04/19/20 06:15 Dose: Not Given Documented by: Polysaccharide Iron Complex (Iron Polysaccharide Complex 150 Mg Capsule) 150 mg PO DAILY [facility] Last Admin: 04/19/20 06:13 Dose: 150 mg Documented by: Potassium Chloride (Potassium Chloride Oral Tablet 20 Meq) 20 meq PO BIDCM [facility] Last Admin: 04/19/20 17:30 Dose: 20 meq Documented by: Senna/Docusate Sodium (Senna/Docusate Sodium 1 Tablet) 2 tablet PO BID [facility] Last Admin: 04/19/20 17:31 Dose: Not Given Documented by: Sodium Chloride (0.9% Saline Lock 10 Ml Syringe) 10 - 40 ml IV UD PRN PRN Reason: SALINE FLUSH Last Admin: 04/09/20 10:08 Dose: 10 ml Documented by: Discharge Diet: No Restrictions Discharge Activity: May Shower, Use Walker Weight Bearing Status: Weight bearing as tolerated Call your doctor if you observe: Fever of 101 or Higher, Inability to urinate, Inability to have a bowel movement, Shortness of breath, Chest pain, Uncontrolled pain Home Medications: Medications to take at Discharge cholecalciferol (vitamin D3) 25 mcg (1,000 unit) capsule 5,000 unit PO QDAY cap 06/13/17 Ascorbic Acid [Vitamin C] 1,000 mg PO DAILY 05/29/18 Aspirin [Aspir 81] 81 mg PO DAILY 05/29/18 Omeprazole Magnesium [Prilosec Otc] 20 mg PO QODAY 03/21/20 Acetaminophen [Tylenol] 1,000 mg PO Q6H PRN PRN 04/07/20 Amlodipine Besylate 2.5 mg PO QDAY 04/07/20 Anastrozole [Arimidex] 1 mg PO DAILY 04/07/20 Denosumab [Prolia] 60 mg SC [id number] 04/07/20 Escitalopram Oxalate 5 mg PO QDAY 04/07/20 Furosemide [Lasix] 20 mg PO DAILY 04/07/20 Losartan Potassium [Cozaar] 25 mg PO DAILY 04/07/20 Iron Polysaccharide Complex [Ferrex 150] 150 mg PO DAILY #30 cap 04/19/20 Nystatin Powder [Mycostatin Powder] 1 applic TOPICAL BID bottle 04/19/20 Oxycodone [Oxyir] 5 mg PO Q4H PRN PRN #42 tab 04/19/20 Polyethylene Glycol 3350 [Miralax] 17 gm PO DAILY #30 packet 04/19/20 Potassium Chloride [K-Tab ER] 20 meq PO BID #60 04/19/20 Senna/Docusate Sodium [Senokot-S] 2 tab PO BID #120 tab 04/19/20 Following Prescriptions Were Given to Patient: Iron Polysaccharide Complex [Ferrex 150] 150 mg PO DAILY #30 cap Transmission Status: Pending to [facility] Potassium Chloride [K-Tab ER] 20 meq PO BID #60 Prescription Printed Polyethylene Glycol 3350 [Miralax] 17 gm PO DAILY #30 packet Transmission Status: Pending to [facility] Oxycodone [Oxyir] 5 mg PO Q4H PRN PRN #42 tab PRN Reason: Pain Score 6-10 Transmission Status: Received by [id number] Senna/Docusate Sodium [Senokot-S] 2 tab PO BID #120 tab Transmission Status: Pending to [facility] Primary Care Physician: Weston Tobar MD [Primary Care Provider] - Please follow up with your Primary Care Physician in: 1 week. Please Follow Up With: Dr. Zuleta When: 04/17/2020 Disposition: Home with Home Health Minutes spent on discharge:: 35 Patient Condition:: Stable Medical Necessity - Tobacco Use Smoking Status: Current every day smoker Tobacco Use: Cigarettes Meaningful Use Info Meaningful Use Diagnoses (Choose all that apply): None applicable
[2020-04-20] MEDS: Acetaminophen 500 MG Tablet 1000 MG PO ×4 (02:08→21:06)
[2020-04-20 05:00] VITALS: BP 126/73; PULSE 63; RESP 18; TEMP 36.6; O2SAT 92
[2020-04-20] MEDS: APIXABAN 2.5 MG TABLET PO ×2 (06:15→17:52)
[2020-04-20] MEDS: amLODIPine 2.5 MG Tablet PO (06:15)
[2020-04-20] MEDS: Senna/Docusate Sodium 1 Tablet 2 TABLET PO (06:15)
[2020-04-20] MEDS: Losartan Potassium 25 MG Tablet PO (06:15)
[2020-04-20] MEDS: Pantoprazole Sodium 20 MG Tablet PO (06:15)
[2020-04-20] MEDS: Furosemide 20 MG Tablet PO (06:15)
[2020-04-20] MEDS: Iron Polysaccharide Complex 150 MG CAPSULE PO (06:16)
[2020-04-20] MEDS: Nystatin Powder 15gm Bottle 1 APPLIC TOPICAL ×2 (06:17→17:57)
[2020-04-20] MEDS: Anastrozole 1 MG TABLET PO (09:15)
[2020-04-20] MEDS: Potassium Chloride Oral Tablet 20 MEQ PO ×2 (09:15→17:52)
[2020-04-20] MEDS: Aspirin E.C. 81 MG Tablet PO (09:15)
[2020-04-20] MEDS: Escitalopram Oxalate 10 MG Tablet 5 MG PO (09:16)
[2020-04-20] MEDS: Ascorbic Acid 500 MG Tablet 1000 MG PO (09:18)
[2020-04-20] MEDS: oxyCODONE 5 MG Tablet 10 MG PO (10:08)
[2020-04-20 10:10] VITALS: PULSE 76; RESP 18; O2SAT 96
--- NOTE | 2020-04-20 13:06 | MDS.RN ---
Completed pain interview for JAYY 04/22/20.
[2020-04-20 14:12] VITALS: BP 108/57; PULSE 76; RESP 17; TEMP 36.2; O2SAT 94
--- NOTE | 2020-04-20 14:48 | NURSING ---
pt stated she updates family.
[2020-04-21] MEDS: Acetaminophen 500 MG Tablet 1000 MG PO ×3 (02:12→20:58)
[2020-04-21 05:00] VITALS: BP 120/56; PULSE 73; RESP 18; TEMP 36.6; O2SAT 94
[2020-04-21] MEDS: amLODIPine 2.5 MG Tablet PO (05:50)
[2020-04-21] MEDS: Iron Polysaccharide Complex 150 MG CAPSULE PO (05:50)
[2020-04-21] MEDS: Furosemide 20 MG Tablet PO (05:50)
[2020-04-21] MEDS: APIXABAN 2.5 MG TABLET PO ×2 (05:50→17:39)
[2020-04-21] MEDS: Losartan Potassium 25 MG Tablet PO (05:50)
[2020-04-21] MEDS: Nystatin Powder 15gm Bottle 1 APPLIC TOPICAL ×2 (05:51→17:41)
[2020-04-21] MEDS: Anastrozole 1 MG TABLET PO (07:54)
[2020-04-21] MEDS: Potassium Chloride Oral Tablet 20 MEQ PO ×2 (07:54→17:40)
[2020-04-21] MEDS: Aspirin E.C. 81 MG Tablet PO (07:55)
[2020-04-21] MEDS: Ascorbic Acid 500 MG Tablet 1000 MG PO (07:55)
[2020-04-21] MEDS: Escitalopram Oxalate 10 MG Tablet 5 MG PO (07:56)
[2020-04-21] MEDS: oxyCODONE 5 MG Tablet 10 MG PO (08:02)
--- NOTE | 2020-04-21 08:57 | CASEMGMT ---
Social Work BIMS and PHQ-9 completed for MDS assessment. 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
[2020-04-21 14:29] VITALS: BP 136/68; PULSE 84; RESP 16; TEMP 36.7; O2SAT 94
[2020-04-22] MEDS: Acetaminophen 500 MG Tablet 1000 MG PO ×3 (02:06→13:15)
[2020-04-22] MEDS: oxyCODONE 5 MG Tablet 10 MG PO ×2 (03:04→13:15)
[2020-04-22 05:00] VITALS: BP 119/56; PULSE 72; RESP 16; TEMP 36.6; O2SAT 95
[2020-04-22] MEDS: Losartan Potassium 25 MG Tablet PO (05:40)
[2020-04-22] MEDS: Iron Polysaccharide Complex 150 MG CAPSULE PO (05:40)
[2020-04-22] MEDS: Furosemide 20 MG Tablet PO (05:41)
[2020-04-22] MEDS: Pantoprazole Sodium 20 MG Tablet PO (05:41)
[2020-04-22] MEDS: amLODIPine 2.5 MG Tablet PO (05:41)
[2020-04-22] MEDS: APIXABAN 2.5 MG TABLET PO (05:42)
[2020-04-22 07:26] LABS: Absolute Lymphocyte Count 2.26 X10^3/uL (0.83-4.51); Absolute Neutrophil Count 3.8 X10^3/uL (2.0-7.7); Basophil# 0.03 X10^3/uL; Basophil% 0.4 % (0-1); Eosinophil# 0.19 X10^3/uL; Eosinophils% 2.8 % (0-5); Hematocrit 40.5 % (37-47); Hemoglobin 12.7 g/dL (12.0-15.0); Lymphocyte # 2.26 X10^3/ul (4.0); Lymphocyte % 33.3 % (19-41); Mean Corp Hgb Conc 31.4 g/dL (32-36); Mean Corpuscular Hgb 29.7 pg (27.0-32.0); Mean Corpuscular Volume 94.8 fL (81-99); Mean Platelet Vol. 10.6 fl (6.2-12.0); Monocyte% 7.4 % (0-10); NRBC Flagged by Analyzer 0 % (0-5); Neutrophil # 3.77 X10^3/uL (2.7-7.7); Neutrophil % 55.5 % (47-70); Platelet Count 372 K/mm3 (150-450); RBC Distribution Width CV 13.4 % (11.6-14.6); RBC Distribution Width SD 46.6 fl (35.1-43.9); Red Blood Count 4.27 M/mm3 (4.2-5.4); White Blood Count 6.8 K/mm3 (4.4-11.0)
[2020-04-22 07:43] LABS: Anion Gap 7 (5-15); BUN 16 mg/dL (7-18); BUN/Creat Ratio 21.5 RATIO (10-20); Calcium,Total 9.6 mg/dL (8.5-10.1); Chloride 102 mmol/L (98-107); Creatinine, Serum 0.74 mg/dL (0.55-1.02); EST Glomerular Filtration Rate 82 mL/min (>60); Est Glom Filt Rate - Afr Amer 99 mL/min (>60); Estimated Creatinine Clearance 49.56 ml/min; Glucose 95 mg/dL (74-106); Potassium 3.6 mmol/L (3.5-5.1); Sodium Level 141 mmol/L (136-145)
[2020-04-22] MEDS: Escitalopram Oxalate 10 MG Tablet 5 MG PO (08:51)
[2020-04-22] MEDS: Potassium Chloride Oral Tablet 20 MEQ PO (08:53)
[2020-04-22] MEDS: Aspirin E.C. 81 MG Tablet PO (08:54)
[2020-04-22] MEDS: Anastrozole 1 MG TABLET PO (08:55)
[2020-04-22] MEDS: Ascorbic Acid 500 MG Tablet 1000 MG PO (08:55)
== END 2020-04-22 14:00 | disposition home health service (06) | DRG 561 ==
LOC: TCU 14:26
PROVIDERS: Admitting Provider Family Medicine Geriatric Medicine; PCP Internal Medicine; Visit Provider Family Medicine Geriatric Medicine
DX: Z47.1 Aftercare following joint replacement surgery (principal); Z96.651 Presence of right artificial knee joint; I10 Essential (primary) hypertension; E55.9 Vitamin D deficiency, unspecified; K21.9 Gastro-esophageal reflux disease without esophagitis; M06.9 Rheumatoid arthritis, unspecified; F17.210 Nicotine dependence, cigarettes, uncomplicated; F41.9 Anxiety disorder, unspecified; F32.9 Major depressive disorder, single episode, unspecified; E87.6 Hypokalemia
CPT/HCPCS: 36415; 80048; 85014; 85018; 85025; 87635; 97110; 97116; 97162; 97166; 97530; 97535; 97802; 99406; U0005; A4216; U0003

== ENCOUNTER → 2020-04-17 15:27 | Outpatient (CLI) | payer MEDICARE, SELFPAY ==
[2018-02-09 10:47] VITALS: BMI 24.4
[2020-04-17 13:34] VITALS: BMI 26.9
--- NOTE | 2020-04-17 15:33 | VDLE_ITS ---
Reason For Study: Right leg swelling RIGHT GSV is normal. CFV is compressible, spontaneous, phasic, competent and demonstrates normal augmentation. FV is compressible, spontaneous, phasic, competent and demonstrates normal augmentation. POP V is compressible, spontaneous, phasic, competent and demonstrates normal augmentation. T/P Trunk is compressible. PTV is compressible. RT PerV is compressible. Procedure This is a venous duplex using B-mode, color flow and spectral Doppler. Exam performed portable in patient room. A preliminary report was called and/or faxed to TCU RN and Mayra @ [facility]'s office. Interpretation Summary Deep veins of the right lower extremity are patent and compressible segmentally. There is no evidence of right lower extremity deep vein thrombosis. Valvular competence appears intact within the proximal deep venous system on the right . The right great saphenous vein appears patent and compressible segmentally. Ordering Physician: Obdulio Zuleta Referring Physician: Weston Tobar Performed By: Alysa Cantor RVT
== END ==
LOC: CVS 15:28
PROVIDERS: PCP Internal Medicine; Referring Provider Orthopaedic Surgery; Visit Provider Orthopaedic Surgery
DX: R22.41 Localized swelling, mass and lump, right lower limb (principal)
CPT/HCPCS: 93971

== ENCOUNTER 2020-05-23 05:37 | Day surgery (SDC) | payer MEDICARE, SELFPAY ==
[2018-02-09 10:47] VITALS: BMI 24.4
[2020-05-23] VITALS (8 sets, daily range): BP systolic 112–139; BP diastolic 51–70; PULSE 73–82; RESP 14–16; TEMP 36.2–36.7; O2SAT 94–100; BMI 27.3
[2020-05-23] MEDS: Cefazolin 2 GM in 0.9% Normal Saline 100 ML IV (07:12)
--- NOTE | 2020-05-23 07:13 | HP.PCM_ITS ---
History and Physical Date of Admission: 05/23/20 Intake Intake Visit Reasons: RIGHT KNEE Chief Complaint: right total knee replacement Allergies Antihistamines - Alkylamine Allergy (Severe, Verified 04/04/20 10:02) TACHYCARDIA Antihistamines - Ethanolamine Allergy (Severe, Verified 04/04/20 10:02) TACHYCARDIA Antihistamines - Ethylenediamine Allergy (Severe, Verified 04/04/20 10:02) TACHYCARDIA Antihistamines - Piperazine Allergy (Severe, Verified 04/04/20 10:02) TACHYCARDIA Antihistamines - Piperidine Allergy (Severe, Verified 04/04/20 10:02) TACHYCARDIA diphenhydramine [From Benadryl] Allergy (Severe, Verified 04/04/20 10:02) TACHYCARDIA [facility] Medical History (Updated 05/02/20 @ 15:03 by Dhiraj Jean MECHANICAL APPLICATIONS ENGINEER, MECHANICAL APPLICATIONS ENGINEER-C) Neck pain (Chronic) Acute internal jugular vein thrombosis (Chronic) Invasive ductal carcinoma of right breast (Chronic) Encounter for adjustment or management of vascular access device (Inactive) Arthritis (Acute) Back problem (Acute) Breast cancer, right (Acute) GERD (gastroesophageal reflux disease) (Acute) Hemorrhoids (Acute) IBS (irritable bowel syndrome) (Acute) Rheumatoid arthritis (Acute) Surgical History H/O section (Acute) History of appendectomy (Acute) History of cholecystectomy (Acute) History of lymph node dissection of right axilla (Acute) History of reconstruction of right breast (Acute) History of right total mastectomy (Acute) History of total left knee replacement (Acute) Family History Mother Heart disease Diabetes Arthritis Father Heart disease Social History (Updated 05/19/20 @ 12:[address] Obdulio Zuleta, DO) Smoking Status: Current every day smoker tobacco type: cigarettes Tobacco: How many years used: 55 Electronic Cigarette Use: not used second hand exposure: Yes quit status: has quit before counseling given: provider counseling alcohol intake: never substance use type: does not use caffeine: Yes what type of physical activity do you participate in: none, walking frequency: does not exercise seatbelt use: always HPI RIGHT KNEE: Details: Parts of this documentation were recorded by a scribe, this documentation accurately reflects the service provided and the decisions made by me, Dr. Obdulio Zuleta, DO 05/19/20 0747. LUIS F FERREIRA is a 70 year old F here today for 6 weeks post op right TKA. She has been in home PT 2 times weekly for an additional 2 weeks. Patient can extend her knee without problems to day but is having trouble with flexion can only go about 100 degrees. Patient continues with numbness and tingling from the knee down to her toes. Ortho Exam Right Knee Date of Surgery: 04/04/20 Skin/Wound: Yes healed, Yes swelling Homans Sign: Yes Knee ROM: Yes ROM-Extension -20 to 0, No ROM-Flexion 0-140 (95) Assessment & Plan Problems 1. Orthopedic aftercare Z47.89 2. 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 Explained patient was stiff prior to her surgery and is not improving. Surgery will be on 05/23/2020 for manipulation. Advised patient will also receive an administration of an injection for pain relief. All questions answered. Patient in agreement of plan. Follow up post-op or sooner if pain, swelling, numbness or associated symptoms, or concerns develop. 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 There are no clinical changes since date of exam Procedure Criteria Procedure Type: Elective COVID Risk Discussion: The surgeon/proceduralist and patient have discussed in detail the risk of exposure to and/or potential harm posed by the COVID-19 virus with having a hayward rgery/procedure at this time versus the risk of delaying the surgery/procedure. It is not possible to know either the risk of delaying the surgery or procedure or chance of getting an infection with perfect accuracy, but a joint decision was made between the patient and the surgeon/proceduralist to proceed at this time with the scheduled surgery/procedure as indicated on the consent form.
--- NOTE | 2020-05-23 07:14 | DCINST_ITS ---
Discharge Diet: No Restrictions Call your doctor if you observe: Shortness of breath, Chest pain Additional Instructions: Encourage full knee flexion and extension regularly. Start physical therapy immediately. May shower and return to activities as normal. Keep pain controlled with medications as discussed with Dr. Zuleta in order to keep full range of motion. Ice and elevate next 72 hours. Follow-up with Dr. Zuleta and call with any questions or concerns. Allergies/Adverse Reactions: Allergies Antihistamines - Alkylamine Allergy (Severe, Verified 05/23/20 06:06) TACHYCARDIA REVIEWED ALL ALERGEN/ADVREAC ON 07-29-17 Antihistamines - Ethanolamine Allergy (Severe, Verified 05/23/20 06:06) TACHYCARDIA Antihistamines - Ethylenediamine Allergy (Severe, Verified 05/23/20 06:06) TACHYCARDIA Antihistamines - Piperazine Allergy (Severe, Verified 05/23/20 06:06) TACHYCARDIA Antihistamines - Piperidine Allergy (Severe, Verified 05/23/20 06:06) TACHYCARDIA diphenhydramine [From Benadryl] Allergy (Severe, Verified 05/23/20 06:06) TACHYCARDIA Medications to take at Discharge cholecalciferol (vitamin D3) 25 mcg (1,000 unit) capsule 5,000 unit PO QDAY cap 06/13/17 Ascorbic Acid [Vitamin C] 1,000 mg PO DAILY 05/29/18 Aspirin [Aspir 81] 81 mg PO DAILY 05/29/18 Omeprazole Magnesium [Prilosec Otc] 20 mg PO QODAY 03/21/20 Acetaminophen [Tylenol] 1,000 mg PO Q6H PRN PRN 04/07/20 Amlodipine Besylate 2.5 mg PO QDAY 04/07/20 Anastrozole [Arimidex] 1 mg PO DAILY 04/07/20 Denosumab [Prolia] 60 mg SC [id number] 04/07/20 Iron Polysaccharide Complex [Ferrex 150] 150 mg PO DAILY #30 cap 04/19/20 Oxycodone [Oxyir] 5 mg PO Q4H PRN PRN #42 tab 04/19/20 Potassium Chloride [K-Tab ER] 20 meq PO BID #60 04/19/20 escitalopram oxalate 5 mg tablet 5 mg PO QDAY #90 tab 04/25/20 furosemide 20 mg tablet 20 mg PO DAILY #30 tab 04/25/20 losartan 25 mg tablet 25 mg PO DAILY #90 tab 04/25/20 Nystatin Powder [Mycostatin Powder] 1 applic TOPICAL BID PRN 05/22/20 Polyethylene Glycol 3350 17 gm PO DAILY PRN 05/22/20 Primary Care Physician: Weston Tobar MD [Primary Care Provider] - Test Results: Test results from this visit will be discussed in further detail at your follow- up appointment, if applicable. Please Follow Up With: Obdulio Zuleta DO - 2 weeks
--- NOTE | 2020-05-23 07:18 | OP.PCM_ITS ---
Report of Operation Date of Procedure: 05/23/20 Description of Surgical Findings:: Preoperative diagnosis: Arthrofibrosis right knee Postoperative diagnosis: Same Procedure: Manipulation under anesthesia with intra-articular steroid injection Anesthesia: General EBL: None Complications: None Condition: Able to PACU Indication for procedure: This is a 58-year-old male who underwent total knee arthroplasty approximately 6 weeks ago who is failed to gain her range of motion wish to undergo an elective manipulation under anesthesia to increase range of motion. risk benefits and alternatives were reviewed including risk of bleeding infection nerve, artery, bone, tissue damage, blood clot need for further surge ry and continued pain. Procedure: Patient was met in the preoperative holding area once again the operative extremity was identified by both patient and physician and was marked. Patient was brought back to the operating room anesthesia was started. A timeout was called into the proper patient procedure and extremity were being contemplated. The operative range of motion was lacking 8 degrees of extension and achieving 95 degrees flexion. After patient was adequately anesthetized extension manipulation was performed followed by patellar mobilization followed by gradual flexion scar tissue was palpated being released with no concerning signs for tendon rupture or fracture. Postoperative range of motion was much improved with near full extension and 125 degrees of flexion. Following the manipulation using sterile technique from the superior lateral position an intra-articular injection with 40 mg of depomedrol and 8 cc 0.25%marcaine with epi was injected. bandaid applied. Preoperative diagnosis: Arthrofibrosis right knee Postoperative diagnosis: Same Procedure: Manipulation under anesthesia with intra-articular steroid injection Anesthesia: General EBL: None Complications: None Condition: Able to PACU Indication for procedure: This is a 70-year-old female who underwent total knee arthroplasty approximately 6 weeks ago who is failed to gain her range of motion wish to undergo an elective manipulation under anesthesia to increase range of motion. risk benefits and alternatives were reviewed including risk of bleeding infection nerve, artery, bone, tissue damage, blood clot need for further surgery and continued pain. Procedure: Patient was met in the preoperative holding area once again the operative extremity was identified by both patient and physician and was marked. Patient was brought back to the operating room anesthesia was started. A timeout was called into the proper patient procedure and extremity were being contemplated. The operative range of motion was lacking 3 extension and achieving 90 degrees flexion. After patient was adequately anesthetized extension manipulation was performed followed by patellar mobilization followed by gradual flexion scar tissue was palpated being released with no concerning signs for tendon rupture or fracture. Postoperative range of motion was much improved with near full extension and 125 degrees of flexion. Following the manipulation using sterile technique from the superior lateral position an intra-articular injection with 40 mg of depomedrol and 8 cc 0.25%marcaine with epi was injected. bandaid applied
[2020-05-23] MEDS: MethylPREDNISolone Acetate 40 MG/ML Vial IM (07:24)
[2020-05-23] MEDS: Bupiv/Epi 0.25% 30 ML Vial (07:24)
== END 2020-05-23 09:14 | disposition home or self-care (01) ==
LOC: SDC 05:39 → AC 05:40
PROVIDERS: PCP Internal Medicine; Referring Provider Orthopaedic Surgery; Visit Provider Orthopaedic Surgery
PROC: (CPT 27570; principal; 2020-05-23 07:10)
DX: M24.661 Ankylosis, right knee (principal); M06.9 Rheumatoid arthritis, unspecified; K21.9 Gastro-esophageal reflux disease without esophagitis; F17.210 Nicotine dependence, cigarettes, uncomplicated; I10 Essential (primary) hypertension; F41.9 Anxiety disorder, unspecified; Z96.651 Presence of right artificial knee joint; Z79.899 Other long term (current) drug therapy; Z20.822 Contact with and (suspected) exposure to COVID-19
CPT/HCPCS: 20610; 27570; 87426; J7120

== ENCOUNTER 2020-06-12 12:30 | Outpatient (RCR) | payer MEDICARE, SELFPAY ==
[2018-02-09 10:47] VITALS: BMI 24.4
[2020-05-23 06:07] VITALS: BMI 27.3
--- NOTE | 2020-05-24 16:20 | HP.PTEVAL ---
Patient's Visit Information LUIS F FERREIRA is a 70 year old F referred to Physical Therapy by Dr. Obdulio Zuleta DO with a diagnosis of L TKR on 04-04-20 and Manipulation 05-23-20. Date of Evaluation: 05/24/20 Physical Therapist: DEBRA Noe - Visit Plan Frequency: 3x /Week Duration: 4 Weeks Plan: Await insurance approval. 3X/ week for 4 weeks for R knee AROM/PROM/AAROM, stretching, strengthening, stairs, sit to stands, manual therapy to increase ROM, functional activities with HEP - Subjective Pt had R TKR on 04-04-20 and then a manipulation on 05-23-20. She had minimal therapy after her TKR.... [place] was [place] and quarentined [place] there and did not get the therapy that she needed. She had her maipulation yesterday and she has very light pain but not like she was. She has stairs to her basement and 3 steps up onto deck. She is not using a walker or a cane. She has been moving her R knee a lot since yesterday and she has even been doing sink squats. HEP: Squats, stairs, knee flex and ext. - Pain R knee pain Pain Intensity (Out of 10): 2 - Objective Gait: Walks with slight antalgic gait on the R knee... R knee AROM: -1 degree from full extension to 102 degrees R knee fleixon. R knee PROM with a strap X 5 ... measure to 110 degrees. (pt in a lot of pain ... had to stop as she was going to pass out). SLR: able to do 10 with fatigue and needed to rest. R hip abd 4-/5 and L hip abd 4/5, R hip ext 3-/5, and L hip ext 3+/5.... R knee flex and ext not tested due to recent manip. Pt is able to walk on heels and toes with assist of UE. Nu-step L1 X 3 min and after a break 1 min) X 4 minutes total at seat #1 She was out of breath (pt will need an actual bike next visit). Stairs: Up and down recip with 2 handrails with increase hesitancy descending the stairs and bending the R knee. Palpation: tender over entire R knee especially joint line. - Goals Goal 1:: I HEP Goal Time Frame: 4-6 Weeks Goal 2:: Increase knee AROM 0-125 degrees without pain Goal Time Frame: 4-6 Weeks Goal 3:: Be able to go up and down the stairs recip with 1 handrail with no hesitation/ substitution Goal Time Frame: 4-6 Weeks Goal 4:: Increase L hip strength by 1/2 muscle grade( at time of eval: R hip abd 4-/5 and L hip abd 4/5, R hip ext 3-/5, and L hip ext 3+/5....). Goal Time Frame: 4-6 Weeks - Anticipated Interventions Patient/Client Instruction: Educate patient on: Condition, Plan of Care For the Purpose of:: To decrease pain, To decrease swelling/inflammation, To increase ROM, To improve nutrient delivery to tissue, To improve muscle performance and motor function, To improve ability to perform ADL's, To increase tolerance to activity/condition/position, To improve performance and independence with ADL's, To decrease level of supervision to perform tasks, To improve ability of physical actions for home/community/work/leisure, To improve gait and locomotor functions, To improve health of tissue, To decrease soft tissue restriction, To increase flexibility/ROM, To improve balance, To improve safety with gait Therapeutic Exercise to Include: Strength training, Flexibilty training, Gait and locomotor training, Passive ROM, Active ROM For the Purpose of:: To decrease pain, To decrease swelling/inflammation, To increase ROM, To improve nutrient delivery to tissue, To increase oxygenation perfusion, To improve muscle performance and motor function, To improve ability to perform ADL's, To increase tolerance to activity/condition/position, To improve performance and independence with ADL's, To decrease level of supervision to perform tasks, To improve ability of physical actions for home/community/work/leisure, To improve gait and locomotor functions, To improve health of tissue, To decrease soft tissue restriction, To increase flexibility/ROM Functional Training to Include: Gait training For the Purpose of:: To improve gait and locomotor functions Manual Therapy Techniques to Include: Passive ROM, Soft tissue mobilization For the Purpose of:: To increase ROM, To improve nutrient delivery to tissue Cryotherapy (ice pack, ice massage): Yes For the Purpose of:: To decrease pain, To decrease swelling/inflammation Thank you for the opportunity to evaluate your patient. For Medicare and Medicare HMO plans, please review the plan of care and approve it. It will need to be FAXED BACK to us at [phone] for Medicare purposes. For Medicare only, by signing this I certify the plan of care. Please let me know if there are questions or concerns regarding this plan of care. Physician Signature: Date:
--- NOTE | 2020-06-12 13:03 | HP.PTDCSUM ---
It has been my pleasure to treat LUIS F FERREIRA referred by Dr. Obdulio Zuleta DO, with the diagnosis of R TKR on 04-04-20 and Manipulation 05-23-20 for a total of 5 visit(s). Discharge Date: 06/12/20 Please see the following information for a summary of their discharge status. Subjective: Still struggling with the very end range bending. Pt needs to work on her eyesight. She does not want to be here in PT anymore and will do her exercises at home. R knee pain Pain Intensity (Out of 10): 2 % Improvement: 95 Objective/Function: 0 degrees extension R knee. 118 degrees R kne flexion. Stairs: up and down recip with 1 hand rail for balance Goal 1:: I HEP Goal Progress: Goal Met Goal 2:: Increase knee AROM 0-125 degrees without pain Goal Progress: Progressing Goal 3:: Be able to go up and down the stairs recip with 1 handrail with no hesitation/ substitution Goal Progress: Goal Met Goal 4:: Increase L hip strength by 1/2 muscle grade( at time of eval: R hip abd 4-/5 and L hip abd 4/5, R hip ext 3-/5, and L hip ext 3+/5....). Goal Progress: Progressing Plan: DC PT to HEP... pt can not afford further PT at this time Discharge Comments: DC PT to HEP If there are questions or concerns regarding this patient's physical therapy, please feel free to call me at [phone]. Thank you for the referral of this patient. Sincerely, Halley Shelley, MPT
== END 2020-06-12 19:00 | disposition home or self-care (01) ==
LOC: PT 12:30
PROVIDERS: PCP Internal Medicine; Referring Provider Orthopaedic Surgery; Visit Provider Orthopaedic Surgery
DX: Z47.1 Aftercare following joint replacement surgery (principal); Z96.651 Presence of right artificial knee joint
CPT/HCPCS: 97110; 97140; 97161

== ENCOUNTER → 2020-06-15 13:24 | Outpatient (CLI) | payer MEDICARE, SELFPAY ==
[2018-02-09 10:47] VITALS: BMI 24.4
[2020-06-05 15:44] VITALS: BMI 27.9
--- NOTE | 2020-06-15 13:27 | BI_ITS ---
MAMMOGRAPHY - UNILATERAL SCREENING: LEFT BREAST REASON FOR EXAM: Female, 70 years old. Routine annual screening examination (unilateral). PERTINENT HISTORY: Personal history of breast cancer. Prior right mastectomy and chemotherapy. TECHNIQUE: Digital unilateral breast mita (3D mammographic acquisition) in the CC and MLO projections. 2-D mediolateral oblique (MLO) and craniocaudad (CC) views of both breasts were obtained. CAD: Full Field Digital Mammography with Computer Added Detection was performed. COMPARISON: Comparison is made with prior study dated 12/08/2018 and 12/01/2017. FINDINGS: Breast Composition: The breasts are extremely dense, which lowers the sensitivity of mammography. There are no dominant masses or suspicious calcifications. No other significant abnormalities are identified. There has been no significant change since the prior study. BI/SCREEN MAMM (CAD) W/MITA UNI L IMPRESSION: Stable unilateral screening mammogram. Yearly follow-up mammogram recommended. (A) ASSESSMENT CATEGORY: BIRADS Category 1: Negative. A letter regarding these results will be sent to the patient by the facility within 30 days. Approximately 10% of breast cancers are not detected by mammography. A normal mammogram should not delay biopsy of a clinically suspicious abnormality. [id number] Electronically Signed: Channing Villanueva MD at 14:33 EDT , Service support ,
--- NOTE | 2020-06-15 13:29 | BD_ITS ---
STUDY: DUAL ENERGY X-RAY ABSORPTIOMETRY / DXA REASON FOR EXAM: Female, 70 years old. 733.00OsteoporosisBONE DENSITY REASON FOR EXAM TECHNIQUE: Bone Mineral Density (BMD) measurements of lumbar spine and bilateral hips were obtained. COMPARISON: Comparison is made with prior study dated 05/01/2017. FINDINGS: Lumbar Spine (L1-L4): g/cm2 (0.834) / T-score (-2.9) / Z-score (-1.2) Findings are suggestive of osteoporosis with a high fracture risk. Left Femur Total: g/cm2 (0.641) / T-score (-2.9) / Z-score (-1.4) Left Femoral Neck: g/cm2 (0.646) / T-score (-2.8) / Z-score (-1.1) Right Femur Total: g/cm2 (0.615) / T-score (-3.1) / Z-score (-1.6) Right Femoral Neck: g/cm2 (0.642) / T-score (-2.8) / Z-score (-1.1) The T-Scores on the most recent prior examination were: Lumbar Spine (L1-L4): There has been improvement of bone density since the previous examination. Left Femur Total: which represents an improvement of 3.6%. Right Femur Total: which represents a worsening of 0.3%. BD/Dexa Bone Density Study IMPRESSION: The patient is considered osteoporotic as outlined below according to World [employer] Organization (WHO) criteria with a high fracture risk. There has been improvement of bone density since the previous examination. Reference Information: The T-score is the number of standard deviations above or below the standard which is normal for young adults at their peak bone mineral density. The World Health Organization (WHO) interprets the T-scores as follows: Above -1 Normal bone density Between -1 and -2.5 Osteopenia Equal to / or below -2.5 Osteoporosis As a practical clinical guideline, osteopenia may be graded as follows: Mild -1 through -1.5 Moderate -1.6 through -2.0 Severe -2.1 through -2.4 The Z-score is the number of standard deviations above or below age-matched controls. A Z-score of less than -1.5 would be considered abnormal. References: 1. NIH Osteoporosis and Related Bone Diseases www osteo.org 2. International Society for Clinical Densitometry www iscd.org 3. National Osteoporosis Foundation www nof.org Electronically Signed: Channing Villanueva MD at 15:40 EDT , Service support ,
== END ==
PROVIDERS: PCP Internal Medicine; Referring Provider Internal Medicine Hematology & Oncology; Visit Provider Internal Medicine Hematology & Oncology
DX: M81.0 Age-related osteoporosis without current pathological fracture (principal); Z12.31 Encounter for screening mammogram for malignant neoplasm of breast
CPT/HCPCS: 77063; 77067; 77080

== ENCOUNTER 2020-07-07 02:42 | Observation (INO) | payer MEDICARE, SELFPAY ==
[2018-02-09 10:47] VITALS: BMI 24.4
[2020-06-23 11:31] VITALS: BMI 27.9
[2020-07-07] VITALS (18 sets, daily range): BP systolic 99–145; BP diastolic 46–79; PULSE 70–89; RESP 16–28; TEMP 36.1–37.3; O2SAT 95–98; BMI 26.5; BMI 26.2
--- NOTE | 2020-07-07 03:12 | EKG12_ITS ---
Test Reason : CP Blood Pressure : / mmHG Vent. Rate : 081 BPM Atrial Rate : 081 BPM P-R Int : 170 ms QRS Dur : 072 ms QT Int : 382 ms P-R-T Axes : 056 036 020 degrees QTc Int : 443 ms Normal sinus rhythm Normal ECG Confirmed by GARRETT CRUZ, BECCA ([id number]), videotape editor KARTHIK WORLEY ([id number]) on 07/10/2020 2:55:57 PM Referred By: VANESA Confirmed By:BECCA TUCKER MD
--- NOTE | 2020-07-07 03:13 | EX.ED.DYSGE1 ---
HPI History of Present Illness Chief Complaint: General Illness Detail of Chief Complaint: chills Informant: patient Onset/Context/Timing Onset: Hours (Within the past hour) Context: Sudden Onset (While sitting in chair, watching a movie 2-3 AM) Timing: Continuous Quality: Tightness, tremoring, chills Location: All over Current Severity: Mild Maximum Severity: Severe Worsened by: Nothing Relieved by: Nothing in particular Associated Symptoms Associated Symptoms: Chest tightness Narrative Narrative: Patient states she has been feeling fine, however while she was sitting in her chair this morning she started feeling very poorly, weak all over, tight in muscles all over, tightness in her chest and a mild dyspnea, she had no loss of consciousness or focal neurologic symptoms/lateralization. No history of seizures. She was feeling fine prior to this. She states she feels better now just malaised and she still has the tightness in her chest. No known history of heart problems. No pleuritic symptoms. [facility] Medical History Acute internal jugular vein thrombosis Arthritis Back problem Breast cancer, right Encounter for adjustment or management of vascular access device GERD (gastroesophageal reflux disease) Hemorrhoids IBS (irritable bowel syndrome) Invasive ductal carcinoma of right breast Macular degeneration Neck pain Rheumatoid arthritis Home Medications aspirin 81 mg PO DAILY 05/29/18 [History Last Taken Unknown] omeprazole magnesium 20 mg PO QODAY 03/21/20 [History Last Taken 05/23/20 04:30 20 MG] amlodipine 2.5 mg PO QDAY 04/07/20 [History Last Taken 05/23/20 04:30 2.5 MG] denosumab 60 mg SC [id number] 04/07/20 [History Last Taken Unknown] nystatin 1 applic TOPICAL BID PRN 05/22/20 [History Last Taken Unknown] escitalopram oxalate 5 mg tablet 5 mg PO QDAY #90 tablet 06/01/20 [Rx Last Taken Unknown] losartan 25 mg tablet 25 mg PO DAILY #90 tablet 06/01/20 [Rx Last Taken Unknown] potassium chloride 20 mEq tablet,extended release 20 meq PO BID #180 tablet 06/01/20 [Rx Last Taken Unknown] celecoxib 200 mg capsule 20 mg PO DAILY 06/23/20 [History Last Taken Unknown] furosemide 20 mg tablet 20 mg PO DAILY #30 tablet 06/30/20 [Rx Last Taken Unknown] anastrozole 1 mg tablet 1 mg PO DAILY 90 Days #90 tab NS 07/03/20 [Rx Last Taken Unknown] Allergy/AdvReac Type Severity Reaction Status Date / Time Antihistamines - Alkylamine Allergy Severe TACHYCARDIA Verified 06/05/20 15:38 Antihistamines - Ethanolamine Allergy Severe TACHYCARDIA Verified 06/05/20 15:38 Antihistamines - Allergy Severe TACHYCARDIA Verified 06/05/20 15:38 Ethylenediamine Antihistamines - Piperazine Allergy Severe TACHYCARDIA Verified 06/05/20 15:38 Antihistamines - Piperidine Allergy Severe TACHYCARDIA Verified 06/05/20 15:38 diphenhydramine Allergy Severe TACHYCARDIA Verified 06/05/20 15:38 [From [facility]] Family History Mother Heart disease Diabetes Arthritis Father Heart disease Surgical History H/O section History of appendectomy History of cholecystectomy History of lymph node dissection of right axilla History of reconstruction of right breast History of right total mastectomy History of total left knee replacement History of total right knee replacement (TKR) Social History (Updated 05/19/20 @ 12:[address] Obdulio Zuleta DO) Smoking Status: Former smoker quit date: 04/04/20 Tobacco: How many years used: 55 Electronic Cigarette Use: not used second hand exposure: Yes quit status: has quit before counseling given: provider counseling alcohol intake: never substance use type: does not use caffeine: Yes what type of physical activity do you participate in: none and walking frequency: does not exercise seatbelt use: always ROS ROS ED Constitutional Constitutional ED: Reports as per HPI, chills, malaise and weakness; Denies fever(s) Eyes Eyes: Denies change in vision or diplopia ENT ENT ED: Denies rhinorrhea or sore throat Cardiovascular Cardiovascular: Reports chest pain; Denies palpitations or racing heartbeat Respiratory/Chest Respiratory/Chest: Reports as per HPI and dyspnea; Denies cough Gastrointestinal Gastrointestinal: Reports diarrhea and other Details: several bouts of loose nonbloody diarrhea per day lately ; Denies abdominal pain, nausea or vomiting Genitourinary Genitourinary ED: Denies dysuria or hematuria Musculoskeletal Musculoskeletal: Denies back pain or neck pain Integumentary Denies abscess or rash Neurologic Neurologic: Denies headache(s), paresthesias or weakness Psychiatric Psychiatric: Denies anxiety or suicidal thoughts EXAM Physical Exam Const Vital Signs: 07/07/20 02:44 07/07/20 02:48 07/07/20 02:49 Temperature 99.1 F 99.1 F Temperature Source Oral Oral Pulse Rate 89 89 Respiratory Rate 28 H 28 H Respiratory Effort Non-Labored Respiratory Pattern Tachypnea Blood Pressure 136/77 H 136/77 H Blood Pressure Mean 96 96 Pulse Ox 95 95 Oxygen Delivery Method Room Air Room Air 07/07/20 03:39 07/07/20 03:44 07/07/20 03:46 Temperature Temperature Source Pulse Rate 82 82 Respiratory Rate 16 Respiratory Effort Respiratory Pattern Blood Pressure 145/65 H Blood Pressure Mean Pulse Ox Oxygen Delivery Method Room Air 07/07/20 04:11 07/07/20 04:26 07/07/20 04:34 Temperature Temperature Source Pulse Rate 87 82 82 Respiratory Rate 18 Respiratory Effort Respiratory Pattern Blood Pressure 141/79 H 109/64 Blood Pressure Mean Pulse Ox Oxygen Delivery Method 07/07/20 04:35 Temperature 98.9 F Temperature Source Temporal Pulse Rate 82 Respiratory Rate 18 Respiratory Effort Respiratory Pattern Blood Pressure 109/64 Blood Pressure Mean 79 Pulse Ox 96 Oxygen Delivery Method Room Air Positive well nourished and well developed General Appearance ED: well developed and NAD HEENT Reports moist mucous membranes normocephalic and atraumatic Eyes PERRL and EOMs intact bilaterally Neck full ROM and supple Resp normal respiratory effort and clear to auscultation bilaterally Cardio regular rate, regular rhythm and no murmurs Rate: Negative for tachycardic GI non-tender and non-distended Auscultation: normoactive bowel sounds Palpation: soft Back/Spine no CVA tenderness General Back: other FROM Extremity normal to inspection General Extremety ED: Negative for edema, pulses abnormal or tenderness General Extremity: Negative for edema or pulses abnormal Neuro oriented x3, CN's II-XII intact bilaterally and no sensory deficits noted Sensorium / Orientation: awake and alert Motor Exam: strength 5/5 throughout Psych mental status grossly normal Mood & Affect: anxious Skin no rashes or lesions noted and no wounds MDM MDM MDM Narrative Medical decision making narrative: Patient has chest discomfort along with fairly vague malaise, chills with a low-grade temperature. She does not have any other specific symptoms to indicate a source of infection. A septic work-up was obtained, including blood cultures. She does not meet criteria for sepsis proper, but her lactate is elevated, slightly and nonspecifically. She was given nitroglycerin in case her chest discomfort is cardiac in etiology although her EKG looks excellent, this did not help her chest discomfort at all. She does have a little prerenal azotemia. She was given some IV fluids. Heart score: 1, 0, 2, 1, 0 = 4 Will admit to rule out cardiac etiologies. Lab Data Attestation: I reviewed the patient's lab results. Labs: Laboratory Results - last 24 hr 07/07/20 07/07/20 07/07/20 03:00 03:00 03:00 WBC 5.9 RBC 4.79 Hgb 14.0 Hct 43.2 MCV 90.2 MCH 29.2 MCHC 32.4 RDW Std Deviation 42.0 RDW Coeff of Awa 12.6 Plt Count 232 MPV 10.4 Immature Gran % (Auto) 0.900 Neut % (Auto) 69.2 Lymph % (Auto) 22.7 [place] % (Auto) 3.8 Eos % (Auto) 2.7 Baso % (Auto) 0.7 Absolute Neuts (auto) 4.1 Absolute Lymphs (auto) 1.33 Nucleated RBC % 0 PT 12.3 INR 1.0 APTT 24.1 Sodium 139 Potassium 4.1 Chloride 105 Carbon Dioxide 28.0 Anion Gap 6 BUN 19 H Creatinine 0.79 Estim Creat Clear Calc 37.06 Est GFR (MDRD) Af Amer 92 Est GFR (MDRD) Non-Af 76 BUN/Creatinine Ratio 23.9 H Glucose 149 H Lactic Acid Calcium 8.7 Total Bilirubin 0.40 AST 14 L ALT 28 Alkaline Phosphatase 109 Troponin I < 0.015 Total Protein 7.3 Albumin 3.6 Globulin 3.7 Albumin/Globulin Ratio 1.0 Urine Color Urine Clarity Urine pH Ur Specific [place] Urine Protein Urine Glucose (UA) Urine Ketones Urine Occult Blood Urine Nitrite Urine Bilirubin Urine Urobilinogen Ur Leukocyte Esterase Urine RBC Urine WBC Ur Squamous Epith Cells Urine Bacteria Urine Mucus 07/07/20 07/07/20 03:00 04:30 WBC RBC Hgb Hct MCV MCH MCHC RDW Std Deviation RDW Coeff of Awa Plt Count MPV Immature Gran % (Auto) Neut % (Auto) Lymph % (Auto) [place] % (Auto) Eos % (Auto) Baso % (Auto) Absolute Neuts (auto) Absolute Lymphs (auto) Nucleated RBC % PT INR APTT Sodium Potassium Chloride Carbon Dioxide Anion Gap BUN Creatinine Estim Creat Clear Calc Est GFR (MDRD) Af Amer Est GFR (MDRD) Non-Af BUN/Creatinine Ratio Glucose Lactic Acid 2.3 H* Calcium Total Bilirubin AST ALT Alkaline Phosphatase Troponin I Total Protein Albumin Globulin Albumin/Globulin Ratio Urine Color Yellow Urine Clarity Clear Urine pH 5.0 Ur Specific [place] 1.025 Urine Protein 30 H Urine Glucose (UA) 50 H Urine Ketones 5 H Urine Occult Blood 50 H Urine Nitrite Negative Urine Bilirubin Negative Urine Urobilinogen Normal Ur Leukocyte Esterase 25 H Urine RBC 0-5 SEEN Urine WBC 0-5 SEEN Ur Squamous Epith Cells 0-5 SEEN Urine Bacteria 0 SEEN Urine Mucus 0 SEEN Radiography Chest X-Ray - ED: 1 View, Read by ED Physician, No Acute Disease and No Infiltrates Diagnostic Testing: Radiology Impression Chest X-Ray 07/07/20 03:43 IMPRESSION: Normal x-ray examination of the chest. Electronically Signed: Carloz Naqvi DO at 4:10 EDT Tel , Service support , EKG Initial EKG: Attestation: I personally reviewed and interpreted this EKG as follows: Interpretation: Sinus Rhythm and No Acute Injury Pattern Prior EKG tracings: available for review Prior: Unchanged Discharge Plan Dx/Rx/DC Orders Clinical Impression: Chest pain, unspecified Disposition Disposition: Acute Care [facility]
[2020-07-07 03:17] LABS: Absolute Lymphocyte Count 1.33 X10^3/uL (0.83-4.51); Absolute Neutrophil Count 4.1 X10^3/uL (2.0-7.7); Basophil# 0.04 X10^3/uL; Basophil% 0.7 % (0-1); Eosinophil# 0.16 X10^3/uL; Eosinophils% 2.7 % (0-5); Hematocrit 43.2 % (37-47); Lymphocyte # 1.33 X10^3/ul (0.83-4.51); Lymphocyte % 22.7 % (19-41); Mean Corp Hgb Conc 32.4 g/dL (32-36); Mean Corpuscular Hgb 29.2 pg (27.0-32.0); Mean Corpuscular Volume 90.2 fL (81-99); Mean Platelet Vol. 10.4 fl (6.2-12.0); Monocyte# 0.22 X10^3/uL; Monocyte% 3.8 % (0-10); NRBC Flagged by Analyzer 0 % (0-5); Neutrophil # 4.05 X10^3/uL (2.7-7.7); Neutrophil % 69.2 % (47-70); Platelet Count 232 K/mm3 (150-450); RBC Distribution Width CV 12.6 % (11.6-14.6); Red Blood Count 4.79 M/mm3 (4.2-5.4); White Blood Count 5.9 K/mm3 (4.4-11.0)
[2020-07-07 03:23] LABS: Prothrombin Time (Protime)PT. 12.3 SECONDS (11.7-14.9)
[2020-07-07 03:24] LABS: Partial Thromboplast Time 24.1 Seconds (24.1-36.2)
[2020-07-07 03:32] LABS: AST(SGOT) 14 U/L (15-37); Alanine Aminotransfer ALT/SGPT 28 U/L (13-56); Albumin, Serum 3.6 g/dL (3.2-5.0); Alkaline Phosphatase 109 U/L (45-117); Anion Gap 6 (5-15); BUN 19 mg/dL (7-18); BUN/Creat Ratio 23.9 RATIO (10-20); Calcium,Total 8.7 mg/dL (8.5-10.1); Chloride 105 mmol/L (98-107); Creatinine, Serum 0.79 mg/dL (0.55-1.02); EST Glomerular Filtration Rate 76 mL/min (>60); Est Glom Filt Rate - Afr Amer 92 mL/min (>60); Estimated Creatinine Clearance 37.06 ml/min; Globulin 3.7 g/dL (2.2-4.2); Glucose 149 mg/dL (74-106); Potassium 4.1 mmol/L (3.5-5.1); Protein, Total 7.3 g/dL (6.4-8.2); Sodium Level 139 mmol/L (136-145)
[2020-07-07 03:38] LABS: Lactic Acid 2.3 mmol/L (0.4-1.9)
[2020-07-07] MEDS: Nitroglycerin SL (ED/IMG/CATH) 0.4 MG TABLET SL ×3 (03:39→04:26)
[2020-07-07] MEDS: Acetaminophen 500 MG Tablet 1000 MG PO (03:39)
--- NOTE | 2020-07-07 03:43 | RAD_ITS ---
STUDY: X-RAY CHEST REASON FOR EXAM: Female, 70 years old. chest pain TECHNIQUE: Single AP portable view of the chest. COMPARISON: None. FINDINGS: The lungs are clear and expanded. There is no demonstrated pleural abnormality. Normal size heart. Normal mediastinum and wil. Normal visualized pulmonary arteries. Normal visualized aortic arch and descending thoracic aorta. Normal visualized thoracic spine. Normal visualized ribs, clavicles, and shoulders. There is no demonstrated abnormality of the visualized soft tissue structures of the upper abdomen. RAD/Chest 1 View (Portable) IMPRESSION: Normal x-ray examination of the chest. Electronically Signed: Carloz Naqvi DO at 4:10 EDT Tel , Service support ,
[2020-07-07 04:34] LABS: Bacteria 0 SEEN /hpf (None Seen); Mucous, Urine 0 SEEN /hpf (<or=2+)
[2020-07-07 04:35] LABS: Color, Urine Yellow (Yellow); Glucose, Dipstick 50 mg/dl (Normal); Ketone-Dipstick 5 mg/dl (Negative); Leukocyte Esterase-Dipstick 25 /ul (Negative); Nitrite-Dipstick Negative (Negative); Occult Blood-Urine 50 /ul (Negative); Protein-Dipstick 30 mg/dl (Negative); Specific Gravity, Urine 1.025 (1.002-1.030); Urine Bilirubin Dipstick Negative (Negative); Urine Clarity Clear (Clear); Urine Urobilinogen Normal (Normal)
[2020-07-07 04:40] LABS: Red Blood Cells-Urine 0-5 SEEN /hpf (0-5); Squamous Epithelial Cells - UA 0-5 SEEN /hpf (5-10); White Blood Cells 0-5 SEEN /hpf (0-5)
--- NOTE | 2020-07-07 05:06 | HP.PCM.HOS_ITS ---
[facility] - General General Date of Admission: 07/07/20 HPI Narrative Patient is a 70 yo F who presented to the emergency department with sudden onset chest pain that started few hours before presentation. Her chest pain started when she was sitting in her chair. She described the chest pain as severe tightening of her chest. The chest pain was nonradiating. She reports chills and rigors with shortness of breath. Also she had a tightening of all the muscles in her body. She was given nitroglycerin at the emergency department that did not really help her. She denies any ameliorating or aggravating factors to the chest pain. The chest pain was nonradiating. She denied any nausea or vomiting. About 3 hours before the chest pain started as she took oxycodone for right knee pain. [facility] Medical History Acute internal jugular vein thrombosis Arthritis Back problem Breast cancer, right Chest pain Encounter for adjustment or management of vascular access device GERD (gastroesophageal reflux disease) Hemorrhoids Hypertension IBS (irritable bowel syndrome) Invasive ductal carcinoma of right breast Macular degeneration Neck pain Rheumatoid arthritis Home Medications aspirin 81 mg PO DAILY 05/29/18 [History Last Taken Unknown] omeprazole magnesium 20 mg PO DAILY 03/21/20 [History Last Taken 05/23/20 04:30 20 MG] amlodipine 2.5 mg PO QDAY 04/07/20 [History Last Taken 05/23/20 04:30 2.5 MG] denosumab 60 mg SC [id number] 04/07/20 [History Last Taken Unknown] nystatin 1 applic TOPICAL BID PRN 05/22/20 [History Last Taken Unknown] escitalopram oxalate 5 mg tablet 5 mg PO QDAY #90 tablet 06/01/20 [Rx Last Taken Unknown] losartan 25 mg tablet 25 mg PO DAILY #90 tablet 06/01/20 [Rx Last Taken Unknown] potassium chloride 20 mEq tablet,extended release 20 meq PO BID #180 tablet 06/01/20 [Rx Last Taken Unknown] celecoxib 200 mg capsule 20 mg PO DAILY 06/23/20 [History Last Taken Unknown] furosemide 20 mg tablet 20 mg PO DAILY #30 tablet 06/30/20 [Rx Last Taken Unknown] anastrozole 1 mg PO DAILY 07/07/20 [History Last Taken Unknown] oxycodone 5 - 10 mg PO QHS 07/07/20 [History Last Taken Unknown] Allergy/AdvReac Type Severity Reaction Status Date / Time Antihistamines - Alkylamine Allergy Severe TACHYCARDIA Verified 06/05/20 15:38 Antihistamines - Ethanolamine Allergy Severe TACHYCARDIA Verified 06/05/20 15:38 Antihistamines - Allergy Severe TACHYCARDIA Verified 06/05/20 15:38 Ethylenediamine Antihistamines - Piperazine Allergy Severe TACHYCARDIA Verified 06/05/20 15:38 Antihistamines - Piperidine Allergy Severe TACHYCARDIA Verified 06/05/20 15:38 diphenhydramine Allergy Severe TACHYCARDIA Verified 06/05/20 15:38 [From Benadryl] Family History Mother Heart disease Diabetes Arthritis Father Heart disease Surgical History H/O section History of appendectomy History of cholecystectomy History of lymph node dissection of right axilla History of reconstruction of right breast History of right total mastectomy History of total left knee replacement History of total right knee replacement (TKR) Social History Smoking Status: Former smoker quit date: 04/04/20 Tobacco: How many years used: 55 Electronic Cigarette Use: not used second hand exposure: Yes quit status: has quit before counseling given: provider counseling alcohol intake: never substance use type: does not use caffeine: Yes what type of physical activity do you participate in: none and walking frequency: does not exercise seatbelt use: always ROS ROS Narrative 12 point review of system is negative except as stated in HPI Vital Signs Vital Signs Vital Signs: 07/07/20 02:44 07/07/20 02:48 07/07/20 02:49 Temperature 99.1 F 99.1 F Temperature Source Oral Oral Pulse Rate 89 89 Respiratory Rate 28 H 28 H Respiratory Effort Non-Labored Respiratory Pattern Tachypnea Blood Pressure 136/77 H 136/77 H Blood Pressure Mean 96 96 Pulse Ox 95 95 Oxygen Delivery Method Room Air Room Air 07/07/20 03:39 07/07/20 03:44 07/07/20 03:46 Temperature Temperature Source Pulse Rate 82 82 Respiratory Rate 16 Respiratory Effort Respiratory Pattern Blood Pressure 145/65 H Blood Pressure Mean Pulse Ox Oxygen Delivery Method Room Air 07/07/20 04:11 07/07/20 04:26 07/07/20 04:34 Temperature Temperature Source Pulse Rate 87 82 82 Respiratory Rate 18 Respiratory Effort Respiratory Pattern Blood Pressure 141/79 H 109/64 Blood Pressure Mean Pulse Ox Oxygen Delivery Method 07/07/20 04:35 Temperature 98.9 F Temperature Source Temporal Pulse Rate 82 Respiratory Rate 18 Respiratory Effort Respiratory Pattern Blood Pressure 109/64 Blood Pressure Mean 79 Pulse Ox 96 Oxygen Delivery Method Room Air Physical Exam Narrative Alert and oriented x3 Nontraumatic; normocephalic Lung clear to auscultate Heart sounds S1-S2. No murmur, gallop or rubs. Abdomen bowel sounds present soft, nontender nondistended Extremity without edema cyanosis or clubbing. Lab / Micro Data Result Diagrams: 07/07/20 03:00 07/07/20 03:00 Labs: Laboratory Results - last 24 hr 07/07/20 07/07/20 07/07/20 03:00 03:00 03:00 WBC 5.9 RBC 4.79 Hgb 14.0 Hct 43.2 MCV 90.2 MCH 29.2 MCHC 32.4 RDW Std Deviation 42.0 RDW Coeff of Awa 12.6 Plt Count 232 MPV 10.4 Immature Gran % (Auto) 0.900 Neut % (Auto) 69.2 Lymph % (Auto) 22.7 Traill % (Auto) 3.8 Eos % (Auto) 2.7 Baso % (Auto) 0.7 Absolute Neuts (auto) 4.1 Absolute Lymphs (auto) 1.33 Nucleated RBC % 0 PT 12.3 INR 1.0 APTT 24.1 Sodium 139 Potassium 4.1 Chloride 105 Carbon Dioxide 28.0 Anion Gap 6 BUN 19 H Creatinine 0.79 Estim Creat Clear Calc 37.06 Est GFR (MDRD) Af Amer 92 Est GFR (MDRD) Non-Af 76 BUN/Creatinine Ratio 23.9 H Glucose 149 H Lactic Acid Calcium 8.7 Total Bilirubin 0.40 AST 14 L ALT 28 Alkaline Phosphatase 109 Troponin I < 0.015 Total Protein 7.3 Albumin 3.6 Globulin 3.7 Albumin/Globulin Ratio 1.0 Urine Color Urine Clarity Urine pH Ur Specific Sprague Urine Protein Urine Glucose (UA) Urine Ketones Urine Occult Blood Urine Nitrite Urine Bilirubin Urine Urobilinogen Ur Leukocyte Esterase Urine RBC Urine WBC Ur Squamous Epith Cells Urine Bacteria Urine Mucus 07/07/20 07/07/20 03:00 04:30 WBC RBC Hgb Hct MCV MCH MCHC RDW Std Deviation RDW Coeff of Awa Plt Count MPV Immature Gran % (Auto) Neut % (Auto) Lymph % (Auto) Traill % (Auto) Eos % (Auto) Baso % (Auto) Absolute Neuts (auto) Absolute Lymphs (auto) Nucleated RBC % PT INR APTT Sodium Potassium Chloride Carbon Dioxide Anion Gap BUN Creatinine Estim Creat Clear Calc Est GFR (MDRD) Af Amer Est GFR (MDRD) Non-Af BUN/Creatinine Ratio Glucose Lactic Acid 2.3 H* Calcium Total Bilirubin AST ALT Alkaline Phosphatase Troponin I Total Protein Albumin Globulin Albumin/Globulin Ratio Urine Color Yellow Urine Clarity Clear Urine pH 5.0 Ur Specific Sprague 1.025 Urine Protein 30 H Urine Glucose (UA) 50 H Urine Ketones 5 H Urine Occult Blood 50 H Urine Nitrite Negative Urine Bilirubin Negative Urine Urobilinogen Normal Ur Leukocyte Esterase 25 H Urine RBC 0-5 SEEN Urine WBC 0-5 SEEN Ur Squamous Epith Cells 0-5 SEEN Urine Bacteria 0 SEEN Urine Mucus 0 SEEN Radiology Impression Chest X-Ray 07/07/20 03:43 IMPRESSION: Normal x-ray examination of the chest. Electronically Signed: Carloz Naqvi DO at 4:10 EDT Tel , Service support , Assessment & Plan Assessment/Plan (1) Chest pain: QUALIFIERS: Chest pain type: unspecified Qualified Code(s): R07.9 - Chest pain, unspecified PLAN: Chest pain Differential diagnosis include anxiety. Placed on a monitored bed at the PCU Actual CXR image was independently visualized. No acute cardiopulmonary process was noted. Actual EKG tracing was independently visualized. EKG tracing showed sinus rhythm ASA 81 mg p.o. daily ordered Morphine as needed for pain ordered We will check lipid panel. Initial troponin was negative Serial cardiac enzymes ordered Stat EKG as needed for chest pain Chemical stress test in the AM if the cardiac enzymes are negative. Of note patient has a history of right total knee replacement. DVT prophylaxis SCD ordered Visit Charges OBSV E&M: 37578 Initial observation care L2
--- NOTE | 2020-07-07 05:42 | EKG12_ITS ---
Test Reason : CP ADMIT Blood Pressure : / mmHG Vent. Rate : 075 BPM Atrial Rate : 075 BPM P-R Int : 178 ms QRS Dur : 072 ms QT Int : 410 ms P-R-T Axes : 053 011 031 degrees QTc Int : 457 ms Normal sinus rhythm Normal ECG Confirmed by GARRETT CRUZ, BECCA ([id number]), graphic editor KARTHIK WORLEY ([id number]) on 07/10/2020 2:58:21 PM Referred By: VALENTE Confirmed By:BECCA TUCKER MD
[2020-07-07] MEDS: Aspirin E.C. 81 MG Tablet PO (06:33)
[2020-07-07] MEDS: 0.9% Saline Lock 10 ML Syringe IV (06:38)
[2020-07-07 07:15] LABS: Reflex Lactate? Y
[2020-07-07 07:20] LABS: Cholesterol 183 mg/dL (200); High Density Lipoprotein 44 mg/dL; Triglycerides 67 mg/dL; Very Low Density Lipoprotein 13 mg/dL (5-40)
[2020-07-07 09:14] LABS: Lactic Acid 1.3 mmol/L (0.4-1.9)
[2020-07-07] MEDS: Potassium Chloride Oral Tablet 20 MEQ PO ×2 (11:27→16:52)
[2020-07-07] MEDS: Escitalopram Oxalate 10 MG Tablet 5 MG PO (11:28)
[2020-07-07] MEDS: Pantoprazole Sodium 20 MG Tablet PO (11:28)
[2020-07-07] MEDS: Losartan Potassium 25 MG Tablet PO (11:28)
[2020-07-07] MEDS: amLODIPine 2.5 MG Tablet PO (11:28)
--- NOTE | 2020-07-07 14:57 | PCM.DC ---
Discharge Instructions Diet Discharge Diet: No restrictions Activity Discharge Activity: Return to Normal Activity Follow Up Care Test Results: Test results from this visit will be discussed in further detail at your follow-up appointment, if applicable. Discharge Plan Admission Admit Date/Time: 07/07/20 05:05 Attending Provider: Jose M Rosen Primary Care Provider: Weston Tobar Instructions Patient Instructions: ED Chest Pain, Noncardiac Discharge Orders/Prescriptions Prescriptions: Continued celecoxib 200 mg capsule 20 mg PO DAILY RF: 0 aspirin 81 MG tablet,delayed release (DR/EC) 81 mg PO DAILY RF: 0 omeprazole magnesium 20 MG tablet,delayed release (DR/EC) 20 mg PO DAILY RF: 0 amlodipine 2.5 MG tablet 2.5 mg PO QDAY RF: 0 denosumab 60 MG/ML syringe 60 mg SC [id number] RF: 0 nystatin 1 APPLIC bottle 1 applic TOPICAL BID PRN (Reason: SKIN IRRITATION') RF: 0 anastrozole 1 mg tablet 1 mg PO DAILY RF: 0 oxycodone 5 mg tablet 5 - 10 mg PO QHS RF: 0 escitalopram oxalate 5 mg tablet 5 mg PO QDAY Qty: 90 RF: 2 losartan 25 mg tablet 25 mg PO DAILY Qty: 90 RF: 2 potassium chloride 20 mEq tablet extended release 20 meq PO BID Qty: 180 RF: 3 furosemide 20 mg tablet 20 mg PO DAILY Qty: 30 RF: 1 Referrals / Follow Up: Weston Tobar MD [Primary Care Provider] - Within 2 Weeks Disposition Disposition (needs filled in before D/C Order can be placed): Home, self care
[2020-07-07] MEDS: Furosemide 20 MG Tablet PO (16:52)
--- NOTE | 2020-07-07 17:12 | STRESSREP_ITS ---
Stress Test Report Pharmacologic myocardial perfusion stress test. Indication: 70-year-old female presented to the emergency department with sudden onset of chest pain. Patient is a former smoker, family history of CAD. Patient had a history of breast cancer as well as has a invasive ductal carcinoma of the right breast. And a history of mastectomy/right breast Stress protocol: Resting EKG demonstrates. Normal sinus rhythm. 0.4 mg of regadenoson was infused per usual protocol followed by rapid intravenous saline flush injection continuous EKG monitoring was performed. The maximum heart rate attained was [] bpm which was []% of maximum predicted heart . Stress EKG showed[, no significant change from the resting EKG, with maximum heart rate of 82 bpm. Arrhythmia: No arrhythmia demonstrated Symptoms: Patient had no symptoms of chest pain Blood pressure at rest: [120/78 mmHg, blood pressure at the end of stress: 120/70 mmHg] Myocardial perfusion protocol. [11.1 mCi ]of Technetium 99m Sestamibi was injected at rest. [ 0.4 mg ]of Regadenoson was infused per usual protocol peak infusion[33 mCi ]of Technetium 99m sestamibi was injected. Stress images were obtained stress and rest images were reconstructed and compared in the short axis vertical and horizontal long axis. Gated images were also obtained Perfusion SPECT analysis: Review of the images demonstrate normal uptake of sestamibi at rest, post stress images demonstrate similar uptake of sestamibi to the resting images, homogeneous tracer uptake With no evidence of reversible myocardial ischemia. Reduced tracer uptake in the inferior myocardium consistent with prior inferior SD. Gated SPECT analysis: The gated ejection fraction is [87 %]. Wall motion showed hyperdynamic left ventricle. Conclusion: Negative regadenoson sestamibi myocardial perfusion study for reversible myocardial ischemia Hyperdynamic left ventricle. Orville Jama MD,FACC,[facility]
--- NOTE | 2020-07-08 06:54 | PCM.DC.SUM ---
Providers Date of Admission: 07/07/20 Primary Care Physician: Dr. Weston Tobar MD Reason For Visit: CHEST PAIN Diagnosis Discharge Diagnosis (1) Chest pain: Status: Acute Code(s): R07.9 - Chest pain, unspecified Qualifiers: Chest pain type: unspecified Qualified Code(s): R07.9 - Chest pain, unspecified Medications at Discharge Home Medications aspirin 81 mg PO DAILY 05/29/18 omeprazole magnesium 20 mg PO DAILY 03/21/20 amlodipine 2.5 mg PO QDAY 04/07/20 denosumab 60 mg SC [id number] 04/07/20 nystatin 1 applic TOPICAL BID PRN 05/22/20 escitalopram oxalate 5 mg tablet 5 mg PO QDAY #90 tablet 06/01/20 losartan 25 mg tablet 25 mg PO DAILY #90 tablet 06/01/20 potassium chloride 20 mEq tablet,extended release 20 meq PO BID #180 tablet 06/01/20 celecoxib 200 mg capsule 20 mg PO DAILY 06/23/20 furosemide 20 mg tablet 20 mg PO DAILY #30 tablet 06/30/20 anastrozole 1 mg PO DAILY 07/07/20 oxycodone 5 - 10 mg PO QHS 07/07/20 Hospital Course Operations None Procedures Stress test Summary of Care Provided Hospital Course: Presents on the with chest pain that began shortly before presentation. Patient had tightening of the chest and just diffuse myalgias. Patient underwent a cardiac work-up including a stress test all of which was negative for cardiac etiology. Patient had no manifestations of infection during the course of her hospitalization as well. Patient discharged home in stable condition Physical Exam Const alert General Appearance: cooperative HEENT normocephalic Neck no lymphadenopathy Resp normal respiratory effort Cardio regular rate, regular rhythm, S1 normal heart sound and S2 normal heart sound ABG / Lab / Microbiology Data Result Diagrams: 07/07/20 03:00 07/07/20 03:00 Laboratory: Laboratory Results - last 24 hr 07/07/20 07/07/20 07/07/20 06:45 08:28 08:28 Lactic Acid 1.3 Troponin I < 0.015 < 0.015 Triglycerides 67 Cholesterol 183 LDL Cholesterol 126 VLDL Cholesterol 13 HDL Cholesterol 44 D/C Instructions Discharge Diet: No restrictions Discharge Activity: Return to Normal Activity Meaningful Use Info Meaningful Use Diagnoses (Choose all that apply): None applicable Discharge Plan Admission Admit Date/Time: 07/07/20 05:05 Attending Provider: Jose M Rosen Primary Care Provider: Weston Tobar Instructions Patient Instructions: ED Chest Pain, Noncardiac Discharge Orders/Prescriptions Prescriptions: Continued celecoxib 200 mg capsule 20 mg PO DAILY RF: 0 aspirin 81 MG tablet,delayed release (DR/EC) 81 mg PO DAILY RF: 0 omeprazole magnesium 20 MG tablet,delayed release (DR/EC) 20 mg PO DAILY RF: 0 amlodipine 2.5 MG tablet 2.5 mg PO QDAY RF: 0 denosumab 60 MG/ML syringe 60 mg SC [id number] RF: 0 nystatin 1 APPLIC bottle 1 applic TOPICAL BID PRN (Reason: SKIN IRRITATION') RF: 0 anastrozole 1 mg tablet 1 mg PO DAILY RF: 0 oxycodone 5 mg tablet 5 - 10 mg PO QHS RF: 0 escitalopram oxalate 5 mg tablet 5 mg PO QDAY Qty: 90 RF: 2 losartan 25 mg tablet 25 mg PO DAILY Qty: 90 RF: 2 potassium chloride 20 mEq tablet extended release 20 meq PO BID Qty: 180 RF: 3 furosemide 20 mg tablet 20 mg PO DAILY Qty: 30 RF: 1 Referrals / Follow Up: Weston Tobar MD [Primary Care Provider] - Within 2 Weeks Disposition Disposition (needs filled in before D/C Order can be placed): Home, self care Visit Charges OBSV E&M: 55398 Observ/hosp same date L2
== END 2020-07-07 17:24 | disposition home or self-care (01) ==
LOC: ED 04:50 → PCU 05:09
PROVIDERS: Admitting Provider Hospitalist; Emergency Provider Emergency Medicine; PCP Internal Medicine
DX: R07.89 Other chest pain (principal); K21.9 Gastro-esophageal reflux disease without esophagitis; M06.9 Rheumatoid arthritis, unspecified; H35.30 Unspecified macular degeneration; K58.9 Irritable bowel syndrome, unspecified; Z85.3 Personal history of malignant neoplasm of breast; Z79.899 Other long term (current) drug therapy; Z79.82 Long term (current) use of aspirin; Z87.891 Personal history of nicotine dependence
CPT/HCPCS: 36415; 71045; 78452; 80053; 80061; 81001; 83605; 84484; 85025; 85610; 85730; 87040; 87086; 87088; 93005; 93017; 96360; 99218; 99285; A9500; J7030; A4216; G0378; J2785

== ENCOUNTER → 2020-08-11 15:11 | Outpatient (CLI) | payer MEDICARE, SELFPAY ==
[2018-02-09 10:47] VITALS: BMI 24.4
[2020-08-11 14:39] VITALS: BMI 26.2
[2020-08-11 16:43] LABS: Absolute Lymphocyte Count 1.76 X10^3/uL (0.83-4.51); Basophil# 0.03 X10^3/uL; Basophil% 0.5 % (0-1); Eosinophil# 0.13 X10^3/uL; Hemoglobin 14.8 g/dL (12.0-15.0); Lymphocyte # 1.76 X10^3/ul (0.83-4.51); Lymphocyte % 27.4 % (19-41); Mean Corp Hgb Conc 32.9 g/dL (32-36); Mean Corpuscular Hgb 28.8 pg (27.0-32.0); Mean Corpuscular Volume 87.5 fL (81-99); Mean Platelet Vol. 10.7 fl (6.2-12.0); Monocyte% 7.8 % (0-10); NRBC Flagged by Analyzer 0 % (0-5); Neutrophil # 3.99 X10^3/uL (2.7-7.7); Platelet Count 260 K/mm3 (150-450); RBC Distribution Width CV 12.7 % (11.6-14.6); RBC Distribution Width SD 40.6 fl (35.1-43.9); Red Blood Count 5.14 M/mm3 (4.2-5.4); White Blood Count 6.4 K/mm3 (4.4-11.0)
[2020-08-11 16:58] LABS: AST(SGOT) 22 U/L (15-37); Alanine Aminotransfer ALT/SGPT 35 U/L (13-56); Albumin, Serum 3.7 g/dL (3.2-5.0); Alkaline Phosphatase 78 U/L (45-117); Anion Gap 7 (5-15); BUN 15 mg/dL (7-18); BUN/Creat Ratio 20.7 RATIO (10-20); Calcium,Total 9.4 mg/dL (8.5-10.1); Chloride 103 mmol/L (98-107); Creatinine, Serum 0.73 mg/dL (0.55-1.02); EST Glomerular Filtration Rate 84 mL/min (>60); Est Glom Filt Rate - Afr Amer 102 mL/min (>60); Globulin 3.8 g/dL (2.2-4.2); Glucose 106 mg/dL (74-106); Magnesium 2.2 mg/dL (1.6-2.6); Protein, Total 7.5 g/dL (6.4-8.2); Sodium Level 140 mmol/L (136-145)
== END ==
LOC: BIMLAB 15:12
PROVIDERS: PCP Internal Medicine; Referring Provider Internal Medicine; Visit Provider Internal Medicine
DX: I10 Essential (primary) hypertension (principal); E87.6 Hypokalemia
CPT/HCPCS: 36415; 80053; 83735; 85025

== ENCOUNTER → 2020-11-06 12:10 | Outpatient (CLI) | payer MEDICARE, SELFPAY ==
[2018-02-09 10:47] VITALS: BMI 24.4
--- NOTE | 2020-11-06 12:22 | RAD_ITS ---
STUDY: X-RAY - LUMBAR SPINE REASON FOR EXAM: Female, 70 years old. Low back pain TECHNIQUE: 3 view(s) of the lumbar spine were obtained. COMPARISON: None FINDINGS: Normal lumbar lordosis. There is no substantial scoliosis. There is a normal alignment of the vertebrae. There is multilevel endplate spondylosis of the lumbar vertebrae. There is multi-level degenerative disc disease with multi-level disc space narrowing. There is no demonstrated fracture. There is atherosclerotic calcification of the abdominal aorta without a demonstrated aneurysm. RAD/Lumbar Spine 2 or 3 Views IMPRESSION: Degenerative changes of the spine, as detailed above. Electronically Signed: Aditya Thompson MD at 16:56 EDT , Service support ,
[2020-11-06 12:55] LABS: Anion Gap 6 (5-15); BUN 12 mg/dL (7-18); BUN/Creat Ratio 17.1 RATIO (10-20); Calcium,Total 9.2 mg/dL (8.5-10.1); Chloride 104 mmol/L (98-107); EST Glomerular Filtration Rate 87 mL/min (>60); Est Glom Filt Rate - Afr Amer 106 mL/min (>60); Glucose 118 mg/dL (74-106); Sodium Level 138 mmol/L (136-145)
== END ==
LOC: LAB 12:11
PROVIDERS: PCP Internal Medicine; Referring Provider Internal Medicine; Visit Provider Internal Medicine
DX: M54.5 Low back pain (principal); I10 Essential (primary) hypertension
CPT/HCPCS: 36415; 72100; 80048

== ENCOUNTER 2020-12-14 12:30 | Outpatient (RCR) | payer MEDICARE, SELFPAY ==
[2018-02-09 10:47] VITALS: BMI 24.4
--- NOTE | 2020-11-23 14:58 | HP.PTEVAL ---
Patient's Visit Information LUIS F FERREIRA is a 70 year old F referred to Physical Therapy by Dr. Weston Tobar MD with a diagnosis of Low back pain, M54.5. Date of Evaluation: 11/23/20 Physical Therapist: Terrance Sánchez - Visit Plan Frequency: 1-2x /Week Duration: 6 Weeks Plan: Continue with core/back/hip strengthening. Also add balance exercises as well. - Subjective Pt. is a 70 y.o. female who has been having back pain for a couple of years but has gotten worse in the last several of months. Pt. PLOF includes no history of back pain in the past before this. She had recent x-ray of her lumbar spine which showed multilevel endplate spondylosis of the lumbar vertebrae, multilevel degenerative disc disease and narrowing. She has not had any other imaging. Pt. denies any change in her bowel or bladder function or unexplained weight loss. Pt. denies any falls and does not use an assistive device. She does get numbness in both of her legs especially from her knees down which is constant. She noted that the numbness got worse after her chemotherapy following her breast cancer diagnosis. Pt. has difficulty with bending forward, standing/walking long periods of time, occasionally sleeping, sitting longer than 15 minutes, lifting things, pushing/pulling, housework, and working in the [employer]. Pt. is retired and worked at [employer]. Her goal with physical therapy is to decrease her pain. She has had previous physical therapy for her right knee in the past. Pt. rates back pain at 4.5/10 currently, at worst 7/10, at best 1/10 and describes the pain as achy. Pt. will occasionally taking Tylenol and Oxycodone if needed. Her PMH includes right breast cancer with masectomy, former smoker quit last March, right TKR in 2019, left partial knee replacement, macular degeneration both eyes, appendectomy, irritable bowel syndrome, and gall bladder removed. Pt. lives with her in a one story home with four steps to enter and right side handrail. Her hobbies include working in her flower beds. - Objective Posture- Mild forward flexed posture. Palpation- Tenderness over lower lumbar spine at L5 and bilateral buttocks and sacrum. Lumbar AROM flexion- WNL and mild pain in low back. No change in numbness in either leg. extension- severe restriction and moderate pain in low back. No change in numbness in either leg. SB to left- WNL and no change in numbness in either leg. SB to right- WNL and no change in numbness in either leg. Rotation- min restriction and no change in numbness in either leg. Left LE strength hip flexion 5/5, abduction 4/5, adduction 5/5, extension 4/5, knee flexion 5/5, knee extension 5/5, DF 5/5, PF 5/5. Right LE strength hip flexion 4+/5, abduction 4/5, adduction 5/5, extension 4/5, knee flexion 5/5, knee extension 5/5, DF 5/5, PF 5/5. Core strength 4/5. Sensation- Decreased sensation bilateral LE from the knees down. Tandem stance right- 30 secs, left- 28 secs. SLS on right- 2 secs, left-4 secs. Special tests- Straight leg raise [-], Well's leg raise [-], ALEKSANDAR's [+ bilaterally], Hip scour [+ bilaterally], Hip quadrant [+ bilaterally]. Gait- Pt. ambulates with wider base of support. - Balance/Special Test Scores Oswestry Low Back Score: 30 - Goals Goal 1:: Pt. will be independent with home exercise program. Goal Time Frame: 2 Weeks Goal 2:: Pt. will be able to sit for at least 1 hour with pain < 3/10. Goal Time Frame: 4-6 Weeks Goal 3:: Pt. will be able to stand/walk for at least 20 minutes with pain < 3/10. Goal Time Frame: 4-6 Weeks Goal 4:: Pt. will be able to lift at least 15# with proper body mechanics and pain < 3/10. Goal Time Frame: 4-6 Weeks Goal 5:: Pt. will rate back pain at worst at 3/10 with ADL's. Goal Time Frame: 4-6 Weeks Goal 6:: Pt. will be able to sleep a full night with no back pain. Goal Time Frame: 4-6 Weeks - Rehabilitation Potential Physical Therapy Diagnosis: Decreased lumbar ROM, core/back/hip strength, balance, and pain Rehabilitation Potential: Good - Anticipated Interventions Patient/Client Instruction: Educate patient on: Condition, Plan of Care For the Purpose of:: To decrease pain, To decrease swelling/inflammation, To increase ROM, To improve ability to perform ADL's, To improve performance and independence with ADL's, To assume or resume ADL's, To improve tolerance to ADL's Therapeutic Exercise to Include: Strength training, Endurance training, Balance training, Body mechanics, Postural training, Flexibilty training, Gait and locomotor training, Active ROM, Dynamic Lumbar Stabilization, Scapular Strength/Stabilization Comment: Continue with core/back/hip strengthening. Add balance work as well. For the Purpose of:: To decrease pain, To decrease swelling/inflammation, To increase ROM, To improve ability to perform ADL's, To improve performance and independence with ADL's, To increase flexibility/ROM, To assume or resume ADL's, To improve tolerance to ADL's Functional Training to Include: ADL Training, Gait training For the Purpose of:: To decrease pain, To decrease swelling/inflammation, To increase ROM, To improve ability to perform ADL's, To improve performance and independence with ADL's, To improve tolerance to ADL's Assistive Devices: Cane, Wheeled walker Comment: Educated pt. on using a cane at this time due to her balance. For the Purpose of:: To improve ability to perform ADL's, To improve performance and independence with ADL's, To improve balance, To improve safety with gait, To assume or resume ADL's, To improve tolerance to ADL's Thank you for the opportunity to evaluate your patient. For Medicare and Medicare HMO plans, please review the plan of care and approve it. It will need to be FAXED BACK to us at [phone] for Medicare purposes. For Medicare only, by signing this I certify the plan of care. Please let me know if there are questions or concerns regarding this plan of care. Physician Signature: Date:
--- NOTE | 2021-03-12 09:12 | HP.PT.NRP ---
LUIS F FERREIRA was seen in my office for initial evaluation on 11/23/20. The following Plan of Care was established for this patient: Initial Frequency: 1-2x /Week Initial Duration: 6 Weeks Patient/Client Instruction: Educate patient on: Condition, Plan of Care For the Purpose of:: To decrease pain, To decrease swelling/inflammation, To increase ROM, To improve ability to perform ADL's, To improve performance and independence with ADL's, To assume or resume ADL's, To improve tolerance to ADL's Therapeutic Exercise to Include: Strength training, Endurance training, Balance training, Body mechanics, Postural training, Flexibilty training, Gait and locomotor training, Active ROM, Dynamic Lumbar Stabilization, Scapular Strength/Stabilization For the Purpose of:: To decrease pain, To decrease swelling/inflammation, To increase ROM, To improve ability to perform ADL's, To improve performance and independence with ADL's, To increase flexibility/ROM, To assume or resume ADL's, To improve tolerance to ADL's Functional Training to Include: ADL Training, Gait training For the Purpose of:: To decrease pain, To decrease swelling/inflammation, To increase ROM, To improve ability to perform ADL's, To improve performance and independence with ADL's, To improve tolerance to ADL's Assistive Devices: Cane, Wheeled walker Comment: Educated pt. on using a cane at this time due to her balance. For the Purpose of:: To improve ability to perform ADL's, To improve performance and independence with ADL's, To improve balance, To improve safety with gait, To assume or resume ADL's, To improve tolerance to ADL's This patient was last seen in our office 12/14/20. Pertinent comments regarding their Physical therapy will appear below: Pt seen 5 visits of POC but did not schedule or attend any further visits. At this point, it has been well over two months and I will discontinue due to nonattendance. At this point I will be discontinuing this patient from physical therapy. I would be happy to see this patient again in the future if found appropriate by the physician. Thank you! Jose M Luciano, DPT, OCS, CSCS Balance/Gait/Functional tests - Balance/Special Test Scores Oswestry Low Back Score: 30
== END 2020-12-14 19:00 | disposition home or self-care (01) ==
LOC: PT 12:30
PROVIDERS: PCP Internal Medicine; Referring Provider Internal Medicine; Visit Provider Internal Medicine
DX: M54.50 Low back pain, unspecified (principal); G89.29 Other chronic pain
CPT/HCPCS: 97110; 97162

== ENCOUNTER 2021-03-27 13:29 | Outpatient (CLI) | payer MEDICARE, SELFPAY ==
[2018-02-09 10:47] VITALS: BMI 24.4
--- NOTE | 2021-03-27 13:35 | CT_ITS ---
STUDY: LOW DOSE CT LUNG CANCER SCREENING REASON FOR EXAM: Female, 71 years old. Lung cancer screening -- asymptomatic; former smoker; 55 pk yr hx RADIATION DOSAGE (If Supplied By Facility): CTDIvol = ( 3.02 ) mGy, DLP = ( 85.35 ) mGycm TECHNIQUE: No contrast was administered. Low dose technique was utilized (average mAS-38 and kVp 120). 1.25 mm axial source images with a slice interval of 1.25-mm were reconstructed in lung windows. 2.5 mm axial source images with a slice interval of 2.5-mm were reconstructed in lung windows. 5.0 mm axial source images with a slice interval of 5.0-mm were reconstructed in soft tissue windows. Nodule measured using lung windows on PACS and/or independent workstation with automated measurement of minimum and maximum diameter. Nodule measurement reported as average diameter rounded to the nearest whole number. Growth is defined as an increase ins size of greater than 1.5 mm. COMPARISON: Comparison is made with prior examination dated 02/08/2020. Once again, surgical clips are seen in the right axillary region. The patient is status post right mastectomy. NODULES: No suspicious nodular densities are seen. Emphysema: Stable scarring in the lung apices more prominent on the right side. The previously seen focal area of heterogeneous density in the anterolateral aspect of the lingular segment of the left upper lobe is not seen at this time. Endobronchial lesion: None Aorta: Atherosclerotic calcification. Coronary arteries: Coronary artery calcification. Heart: Unremarkable Pulmonary artery: Unremarkable Mediastinal nodes: Small mediastinal lymph nodes. Other chest and abdominal findings: CT/Low Dose CT Lung Screening IMPRESSION: Lung-RADS category 2 - Continue annual screening with LDCT in 12 months. IMPORTANT NOTES FOR USE: ACR Lung-RADS Version 1.1 Assessment Categories Release Date: 2018 Category: Coded 0-4 bases on nodule(s) with highest degree of suspicion. Negative screen is defined as categories 1 and 2; a positive screen is defined as categories 3 and 4. Category 3 and 4A nodules that are unchanged on interval CT should be coded as category 2, and individuals returned to screening in 12 months. Category 4X: Category 3 or 4 nodules with additional imaging findings that increase the suspicion of lung cancer, such as spiculation, GGN that doubles in size in 1 year, enlarged lymph notes, etc. Category Modifiers: S (significant finding unrelated to lung cancer) Electronically Signed: Channing Villanueva MD at 14:00 EST ,
[2021-03-27 14:12] LABS: Absolute Lymphocyte Count 1.63 X10^3/uL (0.83-4.51); Absolute Neutrophil Count 3.4 X10^3/uL (2.0-7.7); Basophil# 0.03 X10^3/uL; Basophil% 0.5 % (0-1); Eosinophil# 0.11 X10^3/uL; Eosinophils% 1.9 % (0-5); Hematocrit 41.2 % (37-47); Lymphocyte # 1.63 X10^3/ul (0.83-4.51); Lymphocyte % 28.6 % (19-41); Mean Corpuscular Hgb 30.1 pg (27.0-32.0); Mean Corpuscular Volume 88.6 fL (81-99); Mean Platelet Vol. 10.6 fl (6.2-12.0); Monocyte# 0.46 X10^3/uL; Monocyte% 8.1 % (0-10); NRBC Flagged by Analyzer 0 % (0-5); Neutrophil # 3.44 X10^3/uL (2.7-7.7); Neutrophil % 60.5 % (47-70); Platelet Count 250 K/mm3 (150-450); RBC Distribution Width CV 12.8 % (11.6-14.6); RBC Distribution Width SD 41.4 fl (35.1-43.9); Red Blood Count 4.65 M/mm3 (4.2-5.4); White Blood Count 5.7 K/mm3 (4.4-11.0)
[2021-03-27 14:28] LABS: AST(SGOT) 19 U/L (15-37); Alanine Aminotransfer ALT/SGPT 33 U/L (13-56); Albumin, Serum 3.7 g/dL (3.2-5.0); Alkaline Phosphatase 66 U/L (45-117); Anion Gap 6 (5-15); BUN 15 mg/dL (7-18); BUN/Creat Ratio 19.6 RATIO (10-20); Chloride 105 mmol/L (98-107); Creatinine, Serum 0.76 mg/dL (0.55-1.02); EST Glomerular Filtration Rate 79 mL/min (>60); Est Glom Filt Rate - Afr Amer 96 mL/min (>60); Globulin 3.6 g/dL (2.2-4.2); Glucose 114 mg/dL (74-106); Potassium 3.6 mmol/L (3.5-5.1); Protein, Total 7.3 g/dL (6.4-8.2); Sodium Level 139 mmol/L (136-145)
== END 2021-03-27 23:59 | disposition short-term general hospital (02) ==
PROVIDERS: Nurse Practitioner Family; PCP Internal Medicine; Referring Provider Internal Medicine Hematology & Oncology; Visit Provider Internal Medicine Hematology & Oncology
DX: Z12.2 Encounter for screening for malignant neoplasm of respiratory organs (principal); C50.111 Malignant neoplasm of central portion of right female breast; M54.9 Dorsalgia, unspecified; Z17.0 Estrogen receptor positive status [ER+]; Z87.891 Personal history of nicotine dependence
CPT/HCPCS: 36415; 71271; 80053; 85025

== ENCOUNTER 2021-04-09 08:19 | Outpatient (CLI) | payer MEDICARE, SELFPAY ==
[2018-02-09 10:47] VITALS: BMI 24.4
--- NOTE | 2021-04-09 08:23 | NM_ITS ---
CLINICAL: 71-year-old female with history of carcinoma of the breast. WHOLE BODY 99m Tc MDP RADIONUCLIDE BONE SCINTIGRAPHY COMPARISON: Whole body bone scintigraphy report 05/07/2017 FINDINGS: Following the intravenous administration of 25.1 mCi of 99m Tc MDP, whole body bone images reveal: 1. Increased radiopharmaceutical concentration is defined in the mid cervical spine posteriorly on the left, lower cervical spine posteriorly on the right, fifth lumbar vertebra posteriorly on the left and right, right elbow, wrist and hands, glenohumeral and sternoclavicular compartments of both shoulders, acromioclavicular compartment of the right shoulder, patellofemoral compartment of the right knee. 2. The remaining skeletal structures are scintigraphically unremarkable with normal-appearing renal images and urinary bladder activity identified. Facilitated uptake is demonstrated in the femoral and tibial components of the right knee prosthesis and tibial-femoral components of the left hemiarthroplasty. An increase in tracer distribution is defined in the lateral cortical compartment of the bilateral mid-distal femoral diaphyses most consistent with periostitis. NM/Bone Scan Whole Body IMPRESSION: 1. The increase in radiopharmaceutical concentration identified in the cervical and lumbar spine, right elbow, bilateral wrists and hands, shoulders bilaterally, the patellofemoral compartment of the right knee (in the absence of orthopedic hardware placement) is most consistent with degenerative arthritis. 2. Overall compared to the previous whole body bone scintigraphy report dated 05/07/2017, there is no significant interval change. No current typical scintigraphic evidence of diffuse axial skeletal metastatic disease is defined on the present examination. Electronically Signed: Iván Maradiaga DO at 21:27 EST ,
== END 2021-04-09 23:59 | disposition home or self-care (01) ==
LOC: NM 08:21
PROVIDERS: PCP Internal Medicine; Referring Provider Nurse Practitioner Family; Visit Provider Nurse Practitioner Family
DX: M54.9 Dorsalgia, unspecified (principal); Z85.3 Personal history of malignant neoplasm of breast
CPT/HCPCS: 78306; A9503

== ENCOUNTER 2021-05-08 11:15 | Outpatient (CLI) | payer MEDICARE, SELFPAY ==
[2018-02-09 10:47] VITALS: BMI 24.4
[2021-05-08 12:49] LABS: Rheumatoid Factor < 10.0 IU/mL (<15)
[2021-05-10 08:19] LABS: CCP IgG Antibodies 10 units (0-19)
== END 2021-05-08 23:59 | disposition home or self-care (01) ==
LOC: BIMLAB 11:15
PROVIDERS: PCP Internal Medicine; Referring Provider Internal Medicine; Visit Provider Internal Medicine
DX: M19.90 Unspecified osteoarthritis, unspecified site (principal)
CPT/HCPCS: 36415; 86200; 86431

== ENCOUNTER → 2021-06-19 | Outpatient (CLI) | payer MEDICARE, SELFPAY ==
[2018-02-09 10:47] VITALS: BMI 24.4
--- NOTE | 2021-06-19 11:50 | BI_ITS ---
MAMMOGRAPHY - UNILATERAL SCREENING: LEFT BREAST REASON FOR EXAM: Female, 71 years old. Routine annual screening examination (unilateral). PERTINENT HISTORY: Personal history of breast cancer. Right prior mastectomy and chemotherapy. TECHNIQUE: Digital unilateral breast mita (3D mammographic acquisition) in the CC and MLO projections. 2-D mediolateral oblique (MLO) and craniocaudad (CC) views of the left breasts were obtained. CAD: Full Field Digital Mammography with Computer Added Detection was performed. COMPARISON: Left breast unilateral mammogram from 06/15/2020, 12/08/2018. Bilateral screening mammogram from 09/20/2016. Right breast unilateral mammogram from 10/03/2016. FINDINGS: Breast Composition: The left breast composition is extremely dense, which lowers the sensitivity of mammography. There are no dominant masses or suspicious calcifications. No other significant abnormalities are identified. There has been no significant change since the prior study. BI/SCREEN MAMM (CAD) W/MITA UNI L IMPRESSION: Stable unilateral screening mammogram. Yearly follow-up mammogram recommended. (A) ASSESSMENT CATEGORY: BIRADS Category 1: Negative. A letter regarding these results will be sent to the patient by the facility within 30 days. Approximately 10% of breast cancers are not detected by mammography. A normal mammogram should not delay biopsy of a clinically suspicious abnormality. [id number] Electronically Signed: Bart Webb, at 16:54 EDT ,
== END | disposition home or self-care (01) ==
LOC: OPBI 11:48
PROVIDERS: PCP Internal Medicine; Visit Provider Internal Medicine Hematology & Oncology
DX: Z12.31 Encounter for screening mammogram for malignant neoplasm of breast (principal); Z85.3 Personal history of malignant neoplasm of breast; Z90.11 Acquired absence of right breast and nipple
CPT/HCPCS: 77063; 77067

== ENCOUNTER → 2021-07-12 | Outpatient (CLI) | payer MEDICARE, SELFPAY ==
[2018-02-09 10:47] VITALS: BMI 24.4
[2021-07-12 19:00] LABS: Amphetamine Urine VISTA NEGATIVE (<1000 ng/mL); Barbiturate Urine VISTA NEGATIVE (< 200 ng/mL); Benzodiazepine Urine VISTA NEGATIVE (< 200 ng/mL); Cocaine Urine VISTA NEGATIVE (< 300 ng/mL); Ecstacy Urine VISTA NEGATIVE (< 500 ng/mL); Methadone Urine VISTA NEGATIVE (< 300 ng/mL); PCP Urine VISTA NEGATIVE (< 25 ng/mL); THC Urine VISTA NEGATIVE (< 50 ng/mL); Vista UDS pH Range 4
== END | disposition home or self-care (01) ==
LOC: LAB 13:21
PROVIDERS: PCP Internal Medicine; Visit Provider Anesthesiology Pain Medicine
DX: F11.20 Opioid dependence, uncomplicated (principal)
CPT/HCPCS: 80307

== ENCOUNTER → 2021-08-20 | Outpatient (CLI) | payer MEDICARE, SELFPAY ==
[2018-02-09 10:47] VITALS: BMI 24.4
--- NOTE | 2021-08-20 15:26 | RAD_ITS ---
STUDY: X-RAY - CERVICAL SPINE REASON FOR EXAM: Female, 71 years old. M50.30/M54.12 BILATERAL ARM PAIN RADIATING FROM NECK DOWN, X 6 MONTHS TECHNIQUE: 5 view(s) of the cervical spine were obtained. COMPARISON: None FINDINGS: Vertebral bodies are normal height. No definite fracture demonstrated. No subluxation. C1-2 alignment is maintained. Facet arthropathy at multiple levels. Prevertebral soft tissues are unremarkable. RAD/Cerv Spine 4 or 5 Views IMPRESSION: No evidence of fracture or subluxation. Degenerative changes with multilevel facet arthropathy. Electronically Signed: Yenny Fischer MD at 7:26 EDT ,
== END | disposition home or self-care (01) ==
LOC: RAD 15:13
PROVIDERS: PCP Internal Medicine; Visit Provider Anesthesiology Pain Medicine
DX: M50.30 Other cervical disc degeneration, unspecified cervical region (principal); M54.12 Radiculopathy, cervical region
CPT/HCPCS: 72050

== ENCOUNTER → 2021-10-04 | Outpatient (CLI) | payer MEDICARE, SELFPAY ==
[2018-02-09 10:47] VITALS: BMI 24.4
--- NOTE | 2021-10-04 13:09 | MRI_ITS ---
STUDY: MRI CERVICAL SPINE WITHOUT CONTRAST REASON FOR EXAM: Female, 71 years old. Radicular pain into shoulders and arms. TECHNIQUE: Standardized fat and water weighted pulse sequences were obtained in the sagittal and axial planes. COMPARISON: None FINDINGS: Normal foramen magnum and brainstem-cervical cord junction. Normal craniovertebral junction. Normal anterior atlantoaxial articulation. Normal odontoid process. Normal cervical lordosis. Normal vertebral bodies and posterior osseous elements. C2-3: Normal endplates. Normal disc height, signal and morphology. Normal central canal and intervertebral neural foramina. C3-4: Normal endplates. Normal disc height, signal and morphology. Normal central canal and intervertebral neural foramina. C4-5: Normal endplates. Normal disc height, signal and morphology. Normal central canal and intervertebral neural foramina. C5-6: Normal endplates. Normal disc height. Prominent ventral extra dural defect is suspicious for prominent posterior bulging disc. This appears to touch the ventral cord surface. The axial cuts do not match the level of this prominent ventral extra dural defect. Normal central canal and bilateral intervertebral neural foramina. C6-7: Normal endplates. Mild disc space height narrowing. Mild ventral extra dural defect due to small posterior bulging disc. Normal central canal and intervertebral neural foramina. The axial cuts do not match this mild ventral extra dural defect. In my opinion, the prominent ventral extra dural defect in the axial cuts corresponding to the C5-C6 disc level rather than the C6-C7 disc space level. C7-T1 and T1-T2: Normal endplates. Normal disc height, signal and morphology. Normal central canal and intervertebral neural foramina. T2-T3, T3-T4, T4-T5, T5-T6 and T6-T7: (Sagittal only). Normal endplates. Normal disc height, signal and morphology. Normal central canal and intervertebral neural foramina. Normal cervical cord. Normal included upper thoracic spinal cord. Normal included portions of the brainstem and cerebellum. Normal visualized soft tissue structures. MRI/Spine Cervical (Routine) IMPRESSION: 1. All disc levels of the axial cuts do not match the sagittal cuts. 2. Prominent ventral extra dural defect at C5-C6 disc space level is prominent posterior bulging disc. It touches the ventral cord surface without definite cord displacement. 3. Small C6-C7 posterior bulging disc. 4. No definite MRI evidence of cervical extruded disc fragment or nerve root displacement. 5. Normal cervical spinal cord. Electronically Signed: Krunla Daniels MD at 11:41 EDT ,
== END | disposition home or self-care (01) ==
LOC: MRI 12:40
PROVIDERS: PCP Internal Medicine; Referring Provider Anesthesiology Pain Medicine; Visit Provider Anesthesiology Pain Medicine
DX: M54.12 Radiculopathy, cervical region (principal)
CPT/HCPCS: 72141

== ENCOUNTER → 2021-11-13 | Outpatient (CLI) | payer MEDICARE, SELFPAY ==
[2018-02-09 10:47] VITALS: BMI 24.4
[2021-11-13 16:33] LABS: Absolute Lymphocyte Count 1.48 X10^3/uL (0.83-4.51); Absolute Neutrophil Count 3.1 X10^3/uL (2.0-7.7); Basophil# 0.03 X10^3/uL; Basophil% 0.6 % (0-1); Eosinophil# 0.15 X10^3/uL; Eosinophils% 2.8 % (0-5); Hematocrit 43.5 % (37-47); Hemoglobin 14.1 g/dL (12.0-15.0); Lymphocyte # 1.48 X10^3/ul (0.83-4.51); Mean Corp Hgb Conc 32.4 g/dL (32-36); Mean Corpuscular Hgb 29.8 pg (27.0-32.0); Mean Platelet Vol. 11.7 fl (6.2-12.0); Monocyte# 0.52 X10^3/uL; Monocyte% 9.8 % (0-10); NRBC Flagged by Analyzer 0 % (0-5); Neutrophil # 3.07 X10^3/uL (2.7-7.7); Neutrophil % 58.2 % (47-70); Platelet Count 212 K/mm3 (150-450); RBC Distribution Width CV 13.1 % (11.6-14.6); Red Blood Count 4.73 M/mm3 (4.2-5.4); White Blood Count 5.3 K/mm3 (4.4-11.0)
[2021-11-13 17:44] LABS: Anion Gap 9 (5-15); BUN 15 mg/dL (7-18); BUN/Creat Ratio 17.9 RATIO (10-20); Calcium,Total 9.7 mg/dL (8.5-10.1); Chloride 100 mmol/L (98-107); Creatinine, Serum 0.84 mg/dL (0.55-1.02); EST Glomerular Filtration Rate 71 mL/min (>60); Est Glom Filt Rate - Afr Amer 86 mL/min (>60); Glucose 125 mg/dL (74-106); Potassium 3.8 mmol/L (3.5-5.1); Sodium Level 139 mmol/L (136-145)
== END | disposition home or self-care (01) ==
LOC: BIMLAB 15:02
PROVIDERS: PCP Internal Medicine; Visit Provider Internal Medicine
DX: I10 Essential (primary) hypertension (principal)
CPT/HCPCS: 36415; 80048; 85025

== ENCOUNTER → 2022-02-11 | Outpatient (CLI) | payer MEDICARE, SELFPAY ==
[2018-02-09 10:47] VITALS: BMI 24.4
[2022-02-11 17:07] LABS: Anion Gap 6 (5-15); BUN 22 mg/dL (7-18); BUN/Creat Ratio 28.7 RATIO (10-20); Calcium,Total 9.5 mg/dL (8.5-10.1); Chloride 103 mmol/L (98-107); Creatinine, Serum 0.77 mg/dL (0.55-1.02); EST Glomerular Filtration Rate 79 mL/min (>60); Est Glom Filt Rate - Afr Amer 95 mL/min (>60); Glucose 164 mg/dL (74-106); Potassium 3.6 mmol/L (3.5-5.1); Sodium Level 140 mmol/L (136-145)
[2022-02-11 17:11] LABS: Vitamin D,25 Hydroxy 32.8 ng/mL
[2022-02-12 09:49] LABS: Hemoglobin A1c 7.9 % (3.8-5.6)
== END | disposition home or self-care (01) ==
LOC: BIMLAB 15:16
PROVIDERS: PCP Internal Medicine; Visit Provider Internal Medicine
DX: M81.0 Age-related osteoporosis without current pathological fracture (principal); R73.9 Hyperglycemia, unspecified
CPT/HCPCS: 36415; 80048; 82306; 83036

== ENCOUNTER 2022-06-24 01:24 | Emergency (ER) | payer MEDICARE, SELFPAY ==
[2018-02-09 10:47] VITALS: BMI 24.4
[2022-06-24 01:25] VITALS: BP 181/84; PULSE 90; RESP 18; TEMP 36.6; O2SAT 95
--- NOTE | 2022-06-24 01:38 | EDS_ITS ---
HPI History of Present Illness Chief Complaint: Hypertension Detail of Chief Complaint: Acute on chronic hypertension. Informant: patient Onset/Context/Timing Onset: Month(s) Context: Gradual Onset Timing: Intermittent Current Severity: Mild Maximum Severity: Mild Narrative Narrative: 72-year-old female history of hypertension. Blood pressures have been elevated lately. She denies other complaints. No significant headache. No chest pain. She is on amlodipine, losartan and furosemide. She states she has been taking an as prescribed. She has multiple blood pressure readings that she is taking her last several days. The highest has been is around 170/103. Prior similar symptoms: Yes Recent Illness/Hospitalization: No PFSH PFSH Medical History Acute internal jugular vein thrombosis Arthritis Back pain Back problem Blurry vision Breast cancer, right Chest pain Encounter for adjustment or management of vascular access device Encounter for screening for malignant neoplasm of lung in former smoker who quit in past 15 years with 30 pack year history or greater GERD (gastroesophageal reflux disease) Headache Health care maintenance Hemorrhoids History of breast cancer Hyperglycemia Hypertension IBS (irritable bowel syndrome) Intertriginous dermatitis associated with moisture Invasive ductal carcinoma of right breast Low back pain Macular degeneration Macular degeneration Neck pain Obesity (BMI 30-39.9) Rheumatoid arthritis Type 2 diabetes mellitus Venous insufficiency of both lower extremities Home Medications aspirin 81 mg tablet,delayed release 81 mg PO DAILY Heart Health 05/29/18 [History Last Taken Unknown] omeprazole magnesium 20 mg tablet,delayed release 20 mg PO DAILY GERD 03/21/20 [History Last Taken 05/23/20 04:30 20 MG] Iris Vision Goggles #1 ea 08/11/20 [Rx Last Taken Unknown] nystatin 100,000 unit/gram topical powder 1 applic topical BID PRN Dermatitis #60 grams 05/08/21 [Rx Last Taken Unknown] hydrocodone-acetaminophen 5-325mg 5mg-325mg 1 tab PO Q12H PRN pain 06/26/21 [History Last Taken Unknown] alendronate 70 mg tablet 70 mg PO QWEEK #14 tabs 02/11/22 [Rx Last Taken Unknown] cholecalciferol (vitamin D3) 125 mcg (5,000 unit) capsule 125 mcg PO DAILY #90 caps 02/11/22 [Rx Last Taken Unknown] blood sugar diagnostic (Blood Glucose Test strips) #100 ea 02/14/22 [Rx Last Taken Unknown] blood-glucose meter #1 ea 02/14/22 [Rx Last Taken Unknown] lancets (Fingerstix Lancets) #100 ea 02/14/22 [Rx Last Taken Unknown] escitalopram oxalate 5 mg tablet 5 mg PO QDAY Anxiety #90 tabs 03/19/22 [Rx Last Taken Unknown] amlodipine 2.5 mg tablet 2.5 mg PO QDAY BP #90 tabs 05/03/22 [Rx Last Taken Unknown] biotin 5 mg capsule 5 mg PO DAILY 05/03/22 [History Last Taken Unknown] furosemide 20 mg tablet 20 mg PO DAILY #90 tabs 05/03/22 [Rx Last Taken Unknown] mecobalamin (vitamin B12) 5,000 mcg disintegrating tablet 2,500 mcg PO DAILY 05/03/22 [History Last Taken Unknown] metformin 500 mg tablet,extended release 24 hr 500 mg PO BID #180 tabs 05/17/22 [Rx Last Taken Unknown] anastrozole 1 mg tablet 1 mg PO DAILY cancer #90 tabs 06/10/22 [Rx Last Taken Unknown] losartan 50 mg tablet 50 mg PO DAILY BP #60 tabs 06/17/22 [Rx Last Taken Unknown] latanoprost 0.005 % eye drops 1 drp EACH EYE DAILY 06/24/22 [History Last Taken Unknown] Allergy/AdvReac Type Severity Reaction Status Date / Time Antihistamines - Alkylamine Allergy Severe TACHYCARDIA Verified 06/17/22 13:01 Antihistamines - Ethanolamine Allergy Severe TACHYCARDIA Verified 06/17/22 13:01 Antihistamines - Allergy Severe TACHYCARDIA Verified 06/17/22 13:01 Ethylenediamine Antihistamines - Piperazine Allergy Severe TACHYCARDIA Verified 06/17/22 13:01 Antihistamines - Piperidine Allergy Severe TACHYCARDIA Verified 06/17/22 13:01 diphenhydramine Allergy Severe TACHYCARDIA Verified 06/17/22 13:01 [From Bensvenryl] Family History Mother Heart disease Diabetes Arthritis Father Heart disease Surgical History H/O section History of appendectomy History of cholecystectomy History of lymph node dissection of right axilla History of reconstruction of right breast History of right total mastectomy History of total left knee replacement History of total right knee replacement (TKR) Social History Smoking Status: Former smoker quit date: 04/04/20 Tobacco: How many years used: 55 Electronic Cigarette Use: not used second hand exposure: Yes quit status: has quit before counseling given: provider counseling alcohol intake: never substance use type: does not use caffeine: Yes what type of physical activity do you participate in: none and walking frequency: does not exercise seatbelt use: always ROS ROS ED ROS Narrative Denies recent illness. Review of Systems ROS Unobtainable: Denies due to encephalopathy Constitutional Constitutional ED: Denies chills or fever(s) Eyes Eyes: Denies blurry vision ENT ENT ED: Denies ear pain Cardiovascular Cardiovascular: Denies chest pain Respiratory/Chest Respiratory/Chest: Denies cough or dyspnea Gastrointestinal Gastrointestinal: Denies abdominal pain Genitourinary Genitourinary ED: Denies dysuria Musculoskeletal Musculoskeletal: Denies arthralgias Integumentary Denies abscess Neurologic Neurologic: Denies headache(s) Psychiatric Psychiatric: Denies anxiety Endocrine Endocrinology: Denies cold intolerance Hematologic/Lymphatic Hematologic/Lymphatic: Reports none Allergic/Immunologic Allergic/Immunologic ED: Denies mouth swelling or tongue swelling EXAM Physical Exam Narrative Exam Narrative: Well-appearing female. Vital signs stable afebrile. Initial blood pressure 181/84. While in the room at 152/90. She does not look septic or toxic. She is in no distress. She has no complaints. HEENT exam unremarkable. Pupils round reactive light. No facial droop. Normal speech. Lungs clear. Heart regular rhythm rate about 90 no murmur. Chest wall nontender. Abdomen soft nontender. Moving all 4 extremities. Normal motor strength. Neurologically she is awake and alert with no focal motor deficits. present in the room. Const Vital Signs: 06/24/22 01:25 06/24/22 01:28 Temperature 98 F Temperature Source Temporal Pulse Rate 90 Respiratory Rate 18 Respiratory Effort Normal Respiratory Pattern Normal Blood Pressure 181/84 H Blood Pressure Mean 116 Pulse Ox 95 Oxygen Delivery Method Room Air Positive well nourished and well developed; Negative for obese, cachectic, contractures or unkempt General Appearance ED: well developed and NAD; Negative for unkempt, cachectic, contractures, cyanotic or diaphoretic Nutritional Appearance: Negative for cachectic or obese HEENT Reports moist mucous membranes; Denies dry mucous membranes Negative for trauma or tenderness Mouth ED: No dry mucous membranes Mouth: No dry mucous membranes Eyes PERRL and EOMs intact bilaterally General Eye ED: Negative for pale conjunctiva or scleral icterus Neck no lymphadenopathy, supple and no JVD General: Negative for tenderness or other Lymph Lymphatic: Negative for other Chest Wall inspection of chest normal and palpation of chest normal Chest: Negative for other Resp normal respiratory effort and clear to auscultation bilaterally Effort and Inspection: Negative for retractions Auscultation: Negative for rales, rhonchi or wheezes Cardio regular rate, regular rhythm, S1 normal heart sound, S2 normal heart sound and no murmurs Palpation: Negative for palpable S3 or palpable S4 Rate: Negative for bradycardia Rhythm: Negative for abnormal rhythm GI normal to inspection, nondistended, normoactive bowel sounds, non-tender, non- distended and no masses Inspection: Negative for abdominal distention Auscultation: normoactive bowel sounds Palpation: soft; Negative for tender or guarding Bladder / Kidney Exam: No other Back/Spine no CVA tenderness General Back: Negative for CVA tenderness Cervical Spine: Negative for cervical spine tenderness Thoracic Spine / Upper Back: Negative for thoracic spinal tenderness Lumbar Spine / Lower Back: Negative for lumbar spinal tenderness Extremity normal to inspection General Extremety ED: Negative for edema or tenderness General Extremity: Negative for edema Neuro oriented x3 and CN's II-XII intact bilaterally Sensorium / Orientation: alert; Negative for orientation impaired, lethargic or stuporous Motor Exam: strength 5/5 throughout Psych mental status grossly normal Appearance: Negative for unkempt Attitude: No agitated Mood & Affect: Negative for depressed, anxious or tearful Skin no rashes or lesions noted and no wounds Rashes: No rashes noted Trauma: Negative for abrasion Wounds: Negative for wounds noted MDM MDM MDM Narrative Medical decision making narrative: Patient with acute on chronic hypertension. Currently on 3 medications for it. Normal exam. She does not need anything done at this time. We will repeat her blood pressure. She was instructed to follow-up with her doctor to see if they need to do any medication adjustments. History & Record Review Discussion w/independent historian: Patient and Family Discharge Plan Triage Chief Complaint: Hypertension ED Provider: Ramakrishna Garsia Dx/Rx/DC Orders Clinical Impression: Chronic hypertension, History of breast cancer, History of diabetes mellitus Instructions: Controlling High Blood Pressure, ED Hypertension, Established Prescriptions: No Action (DME) Iris Vision Goggles See Rx Instructions .Route .MEDSUPPLY Qty: 1 0RF Rx Instructions: As directed nystatin 100,000 unit/gram powder 1 applic TOPICAL BID PRN (Reason: Dermatitis) Qty: 60 3RF Protocol: *Topical Application Instructions APPLICATION INSTRUCTIONS: Apply to affected area hydrocodone-acetaminophen 5-325 mg tablet 1 tab PO Q12H PRN (Reason: pain) alendronate 70 mg tablet 70 mg PO QWEEK Qty: 14 3RF biotin 5 mg capsule 5 mg PO DAILY mecobalamin (vitamin B12) 5,000 mcg tablet,disintegrating 2,500 mcg PO DAILY amlodipine 2.5 mg tablet 2.5 mg PO QDAY Qty: 90 3RF furosemide 20 mg tablet 20 mg PO DAILY Qty: 90 2RF losartan 50 mg tablet 50 mg PO DAILY Qty: 60 2RF aspirin 81 MG tablet,delayed release (DR/EC) 81 mg PO DAILY omeprazole magnesium 20 MG tablet,delayed release (DR/EC) 20 mg PO DAILY latanoprost 0.005 % drops 1 drp EACH EYE DAILY Label Comments: Apply 1 drop in both eyes daily cholecalciferol (vitamin D3) 125 mcg (5,000 unit) capsule 125 mcg PO DAILY Qty: 90 2RF (DME) blood-glucose meter Misc See Rx Instructions .Route Qty: 1 0RF Rx Instructions: Check blood sugar twice a day (DME) lancets [Fingerstix Lancets] Misc See Rx Instructions .Route Qty: 100 3RF Rx Instructions: Check blood sugar twice a day (DME) Blood Glucose Test Strip See Rx Instructions .Route Qty: 100 3RF Rx Instructions: Check blood sugar twice a day escitalopram oxalate 5 mg tablet 5 mg PO QDAY Qty: 90 2RF metformin 500 mg tablet extended release 24 hr 500 mg PO BID Qty: 180 2RF anastrozole 1 mg tablet 1 mg PO DAILY Qty: 90 1RF Primary Care Provider: Weston Tobar Referrals: Weston Tobar MD [Primary Care Provider] - 1 Week Activity Restrictions/Additional Instructions: Log your blood pressures twice a day once in the morning and once in the evening. Follow-up with your primary care physician and show them the blood pressure readings. Your doctor and you can decide if they need to adjust or change any of your blood pressure medications. Disposition Disposition: Home, Self Care
[2022-06-24 01:47] VITALS: BP 158/79; PULSE 79; RESP 16; O2SAT 95
== END 2022-06-24 02:01 | disposition home or self-care (01) ==
LOC: ED 01:54
PROVIDERS: Emergency Provider Emergency Medicine; PCP Internal Medicine; Visit Provider Emergency Medicine
DX: I10 Essential (primary) hypertension (principal); E11.9 Type 2 diabetes mellitus without complications; Z87.891 Personal history of nicotine dependence; Z85.3 Personal history of malignant neoplasm of breast
CPT/HCPCS: 99283

== ENCOUNTER → 2022-06-25 | Outpatient (CLI) | payer MEDICARE, SELFPAY ==
[2018-02-09 10:47] VITALS: BMI 24.4
--- NOTE | 2022-06-25 12:58 | CT_ITS ---
STUDY: CT BRAIN WITHOUT CONTRAST REASON FOR EXAM: Female, 72 years old. Headache RADIATION DOSAGE (If Supplied By Facility): CTDIvol = ( 47.06 ) mGy, DLP = ( 819.74 ) mGycm TECHNIQUE: Transaxial CT imaging of the brain was performed without administration of intravenous contrast material. Individualized dose optimization techniques were used for this CT. COMPARISON: No relevant priors. FINDINGS: Normal soft tissue structures. Normal calvarium. There is mild cerebral atrophy with widening of the extra-axial spaces and ventricular dilatation. Normal white matter tracts of the cerebral hemispheres. There are small punctate calcifications of the basal ganglia which are seen in the aging brain as a normal variant. Normal brainstem. Normal cerebellum. There is no intracranial hemorrhage. There are no findings of an acute ischemic infarction. Atherosclerotic plaque formation of the cavernous portions of the internal carotid arteries bilaterally. Normal visualized paranasal sinuses. CT/Brain/Head without Contrast IMPRESSION: Chronic involutional changes of the brain. Electronically Signed: Channing Villanueva MD at 14:43 EDT ,
== END | disposition home or self-care (01) ==
LOC: CT 12:57
PROVIDERS: PCP Internal Medicine; Referring Provider Internal Medicine; Visit Provider Internal Medicine
DX: Z12.31 Encounter for screening mammogram for malignant neoplasm of breast (principal); R51.9 Headache, unspecified; Z87.891 Personal history of nicotine dependence
CPT/HCPCS: 70450; 71271; 77063; 77067

== ENCOUNTER → 2022-06-25 | Outpatient (CLI) | payer MEDICARE, SELFPAY ==
[2018-02-09 10:47] VITALS: BMI 24.4
--- NOTE | 2022-06-25 13:58 | CT_ITS ---
STUDY: LOW DOSE CT LUNG CANCER SCREENING REASON FOR EXAM: Female, 72 years old. Lung cancer screening -- and gt;20 pk yr hx;former smoker;asymptomatic RADIATION DOSAGE (If Supplied By Facility): CTDIvol = ( 2.39 ) mGy, DLP = ( 62.22 ) mGycm TECHNIQUE: No contrast was administered. Low dose technique was utilized (average mAS-38 and kVp 120). 1.25 mm axial source images with a slice interval of 1.25-mm were reconstructed in lung windows. 2.5 mm axial source images with a slice interval of 2.5-mm were reconstructed in lung windows. 5.0 mm axial source images with a slice interval of 5.0-mm were reconstructed in soft tissue windows. COMPARISON: Comparison is made with prior study dated March 27, 2021. The patient is status post right mastectomy and right No dissection. NODULES: No suspicious nodules are seen. Emphysema: Stable scarring at the lung apices slightly worse on the right side. Endobronchial lesion: Unremarkable Aorta: Atherosclerotic plaque formation. CORONARY ARTERIES: Coronary artery calcification is seen. Heart: Unremarkable. Pulmonary artery: Unremarkable. Mediastinal nodes: Stable small benign-appearing mediastinal lymph nodes. Other chest and abdominal findings: CT/Low Dose CT Lung Screening IMPRESSION: Lung-RADS category 2 - Continue annual screening with LDCT in 12 months. IMPORTANT NOTES FOR USE: ACR Lung-RADS Version 1.1 Assessment Categories Release Date: 2018 Category: Coded 0-4 bases on nodule(s) with highest degree of suspicion. Negative screen is defined as categories 1 and 2; a positive screen is defined as categories 3 and 4. Category 3 and 4A nodules that are unchanged on interval CT should be coded as category 2, and individuals returned to screening in 12 months. Category 4X: Category 3 or 4 nodules with additional imaging findings that increase the suspicion of lung cancer, such as spiculation, GGN that doubles in size in 1 year, enlarged lymph notes, etc. Category Modifiers: S (significant finding unrelated to lung cancer) Electronically Signed: Channing Villanueva MD at 14:42 EDT ,
--- NOTE | 2022-06-25 14:27 | BI_ITS ---
MAMMOGRAPHY - UNILATERAL SCREENING: LEFT BREAST REASON FOR EXAM: Female, 72 years old. Routine annual screening examination (unilateral). PERTINENT HISTORY: Personal history of breast cancer. Prior right mastectomy. TECHNIQUE: Digital unilateral breast mita (3D mammographic acquisition) in the CC and MLO projections. 2-D mediolateral oblique (MLO) and craniocaudad (CC) views of both breasts were obtained. CAD: Full Field Digital Mammography with Computer Added Detection was performed. COMPARISON: Comparison is made with prior study June 19, 2021 and June 15, 2020. FINDINGS: Breast Composition: The breasts are extremely dense, which lowers the sensitivity of mammography. There are no dominant masses or suspicious calcifications. No other significant abnormalities are identified. There has been no significant change since the prior study. BI/SCREEN MAMM (CAD) W/MITA UNI L IMPRESSION: ASSESSMENT CATEGORY: BIRADS Category 1: Negative. A letter regarding these results will be sent to the patient by the facility within 30 days. Approximately 10% of breast cancers are not detected by mammography. A normal mammogram should not delay biopsy of a clinically suspicious abnormality. [id number] Electronically Signed: Channing Villanueva MD at 15:43 EDT ,
== END | disposition home or self-care (01) ==
LOC: CT 12:52
PROVIDERS: PCP Internal Medicine; Referring Provider Nurse Practitioner Family; Visit Provider Nurse Practitioner Family
DX: Z12.31 Encounter for screening mammogram for malignant neoplasm of breast (principal); Z87.891 Personal history of nicotine dependence
CPT/HCPCS: 71271; 77063; 77067

== ENCOUNTER → 2022-07-03 | Outpatient (CLI) | payer MEDICARE, SELFPAY ==
[2018-02-09 10:47] VITALS: BMI 24.4
[2022-07-03 14:40] LABS: Amphetamine Urine VISTA NEGATIVE (<1000 ng/mL); Barbiturate Urine VISTA NEGATIVE (< 200 ng/mL); Benzodiazepine Urine VISTA NEGATIVE (< 200 ng/mL); Cocaine Urine VISTA NEGATIVE (< 300 ng/mL); Ecstacy Urine VISTA NEGATIVE (< 500 ng/mL); Methadone Urine VISTA NEGATIVE (< 300 ng/mL); PCP Urine VISTA NEGATIVE (< 25 ng/mL); THC Urine VISTA NEGATIVE (< 50 ng/mL); Vista UDS pH Range 5
== END | disposition home or self-care (01) ==
LOC: LAB 13:27
PROVIDERS: PCP Internal Medicine; Referring Provider Anesthesiology Pain Medicine; Visit Provider Anesthesiology Pain Medicine
DX: F11.20 Opioid dependence, uncomplicated (principal)
CPT/HCPCS: 80307

== ENCOUNTER → 2022-08-05 | Outpatient (CLI) | payer MEDICARE, SELFPAY ==
[2018-02-09 10:47] VITALS: BMI 24.4
[2022-08-05 15:39] LABS: Vitamin D,25 Hydroxy 89.6 ng/mL
[2022-08-05 15:46] LABS: ALB/GLOB Ratio 1.1 RATIO (0.9-2.4); AST(SGOT) 21 U/L (15-37); Alanine Aminotransfer ALT/SGPT 36 U/L (13-56); Albumin, Serum 3.6 g/dL (3.2-5.0); Alkaline Phosphatase 158 U/L (45-117); Anion Gap 5 (5-15); BUN 27 mg/dL (7-18); Calcium,Total 9.7 mg/dL (8.5-10.1); Chloride 105 mmol/L (98-107); Creatinine, Serum 0.93 mg/dL (0.55-1.02); EST Glomerular Filtration Rate 63 mL/min (>60); Est Glom Filt Rate - Afr Amer 76 mL/min (>60); Globulin 3.4 g/dL (2.2-4.2); Glucose 110 mg/dL (74-106); Potassium 4.5 mmol/L (3.5-5.1); Sodium Level 139 mmol/L (136-145); T4 Free Direct 1.15 ng/dL (0.76-1.46); Thyroid Stim Hormone (TSH) 1.44 uIU/mL (0.358-3.74)
== END | disposition home or self-care (01) ==
LOC: BIMLAB 13:18
PROVIDERS: PCP Internal Medicine; Visit Provider Internal Medicine
DX: E11.9 Type 2 diabetes mellitus without complications (principal); R06.09 Other forms of dyspnea; Z13.29 Encounter for screening for other suspected endocrine disorder; M81.0 Age-related osteoporosis without current pathological fracture
CPT/HCPCS: 36415; 80053; 82306; 83036; 84439; 84443

== ENCOUNTER → 2022-11-18 | Outpatient (CLI) | payer MEDICARE, SELFPAY ==
[2018-02-09 10:47] VITALS: BMI 24.4
[2022-11-18 15:37] LABS: Cholesterol 218 mg/dL (200); High Density Lipoprotein 60 mg/dL; Triglycerides 72 mg/dL; Very Low Density Lipoprotein 14 mg/dL (5-40)
== END | disposition home or self-care (01) ==
LOC: BIMLAB 13:26
PROVIDERS: PCP Internal Medicine; Visit Provider Internal Medicine
DX: E11.9 Type 2 diabetes mellitus without complications (principal)
CPT/HCPCS: 36415; 80061

== ENCOUNTER → 2022-12-16 | Outpatient (CLI) | payer MEDICARE, SELFPAY ==
[2018-02-09 10:47] VITALS: BMI 24.4
--- NOTE | 2022-12-16 13:57 | US_ITS ---
STUDY: SUPERFICIAL ULTRASOUND - RIGHT CHEST WALL. REASON FOR EXAM: Female, 72 years old. Right chest wall painful swelling TECHNIQUE: A superficial ultrasound was performed with real-time and static abebe-scale imaging. COMPARISON: None. FINDINGS: The palpable lump corresponds to a 1.7 cm x 1.5 cm x 0.6 cm irregular heterogeneous hypoechoic mass. Increased vascularity is seen within it. Biopsy is recommended. US/Chest IMPRESSION: The palpable lump corresponds to a 1.7 cm x 1.5 cm x 0.6 cm irregular heterogeneous hypoechoic mass with increased vascularity. Biopsy recommended. Electronically Signed: Channing Villanueva MD at 15:22 EDT ,
== END | disposition home or self-care (01) ==
LOC: US 13:56
PROVIDERS: PCP Internal Medicine; Referring Provider Internal Medicine; Visit Provider Internal Medicine
DX: R22.2 Localized swelling, mass and lump, trunk (principal); Z90.10 Acquired absence of unspecified breast and nipple; R07.89 Other chest pain
CPT/HCPCS: 76604

== ENCOUNTER → 2022-12-23 | Outpatient (CLI) | payer MEDICARE, SELFPAY ==
[2018-02-09 10:47] VITALS: BMI 24.4
--- NOTE | 2022-12-23 | IMM_PTH ---
PATIENT: LUIS F FERREIRA LOC: [facility] U#:[id number] AGE/SX: 72/F ROOM: RE12/23/[address]: Dr. Divine Win MD : 1950 BED: DIS: 12/23/2022 SPEC #: [id number] RECD: 12/25/22 14:09 STATUS: NATANAEL REQ #: [id number] ANYA: 12/23/22 00:[address]: Divine Win DEPT: IMMUNOHISTOCHEMISTRY RECD BY: Liz Underwood ENTERED: 12/25/22 14:10 SP TYPE: IMMUNO OTHR DR: Dr. Weston Tobar MD Tissues: Chest wall, NOS Procedures: CK20 (add) CK7 (add) CK8 (add) E-CAD (add) HER2 JUAN (add) KI-67 (add) MAMM (add) P53 (add) WV (add) Pankeratin (add) GATA3 (add) P40 (add) ER (initial) S-100 (add) PHYSICIAN & [address] [address] SPECIMEN INFORMATION: Tissue Source: Right chest wall mass Clinical Info: Right chest wall mass Specimen Number: [id number] CPT code: 71324, 99665 x13 METHODOLOGY: Deparaffinized sections of prefer/formalin-fixed tissue or PAP/DQ stained slides are incubated with monoclonal/polyclonal antibodies/oligonucleotide probes. Localization is made via biotin free immunoperoxidase method. Appropriate controls are performed and reacted as expected. Results on target cell population are indicated in the following table: RESULTS: ANTIBODY / CLONE RESULT ER (6F11) positive, 5%, dim WV (1E2) negative Her-2neu (CB11) negative E-Cad (ECH-6) positive Mammaglobin (31A5) positive GATA3 (L50-823) positive AE1-3 (AE1/AE3/PCK26) positive CK7 (OV-TL12/30) positive CK8 (58tlfnS40) positive CK20 (KS20.8) negative S-100 (4C4.9) negative P40 (BC28) negative P53 (DO-7) positive, missense pattern Ki-67 (30-9) positive, moderate These tests were developed and their performance characteristics determined by [facility]. They may not have been cleared or approved by the U.S. Food and Drug Administration. The FDA has determined that such clearance or approval is not necessary. The above immunohistochemical/dualISH markers are ordered and reviewed by the Pathologist. INTERPRETATION: Right chest wall mass, core biopsy: Consistent with invasive ductal carcinoma. AM:sd 12/26/2022 Case has been reviewed in consultation with Dr. Martines who concurs with the above diagnosis. IDC:SJ
--- NOTE | 2022-12-23 14:45 | MASS_PTH ---
PATIENT: LUIS F FERREIRA LOC: [facility] U#:[id number] AGE/SX: 72/F ROOM: RE12/23/[address]: Dr. Divine Win MD : 1950 BED: DIS: 12/23/2022 SPEC #: [id number] RECD: 12/23/22 15:15 STATUS: SOUNneka REQ #: [id number] ANYA: 12/23/22 14:[address]: Divine Win DEPT: SURGICAL PATHOLOGY RECD BY: Kim Wilson ENTERED: 12/24/22 08:51 SP TYPE: Mass OTHR DR: Dr. Weston Tobar MD Tissues: Chest wall, NOS Procedures: Surgery Specimen Level IV Comments: @ Originally on account #[id number] Req #[id number] HEADER OPERATION: Biopsy of right chest wall mass PRE-OP DIAGNOSIS: Right chest wall mass, ? recurrent breast cancer status post right mastectomy TISSUE SUBMITTED: Right chest wall mass MICROSCOPIC DIAGNOSIS Right chest wall mass, core biopsy: Metastatic carcinoma consistent with breast primary. See comment. AM:sd 12/25/2022 COMMENT Immunohistochemistry ([id number]) supports the above diagnosis and supports a breast primary. Case is discussed with Dr. Win 12/25/[address] Burns. Case has been reviewed in consultation with Dr. Martines who concurs with the above diagnosis. GINA:CLIFF MICROSCOPIC DESCRIPTION Slides are reviewed. GROSS DESCRIPTION Received in fixative is one container labeled with the patient's name and designated biopsy right chest wall mass. The specimen consists of multiple elongated pieces of rolon soft tissue measuring in aggregate 1.2 x 0.5 x 0.1 cm. The entire specimen is submitted in one cassette. / CLIFF:sd 12/24/2022 TC:0 CPT: 31678 ADDENDUM ADDENDUM ADDENDUM ADDENDUM ADDENDUM ADDENDUM ADDENDUM ADDENDUM ADDENDUM ADDENDUM ADDENDUM ADDENDUM ADDENDUM ADDENDUM ADDENDUM ADDENDUM ADDENDUM ADDENDUM ADDENDUM ADDENDUM ADDENDUM ADDENDUM ADDENDUM ADDENDUM ADDENDUM ADDENDUM ADDENDUM ADDENDUM ADDENDUM ADDENDUM 02/07/2023 10:17 ADDENDUM 02/07/2023 10:17 ADDENDUM 02/07/2023 10:17 ADDENDUM 02/07/2023 10:17 ADDENDUM 02/07/2023 10:17 PD-L1 (KEYTRUDA) IMMUNOHISTOCHEMICAL ANALYSIS FROM [facility] RESULTS: Tumor proportion score: <1% / [facility] REPORT FROM [facility] RESULT SUMMARY: Abnormal DETECTED STRUCTURAL ALTERATIONS: Complex cytogenetic abnormalities (three or more aberrations) were detected. DETECTED GENOMIC ALTERATIONS: Tier I: Variants of Strong Clinical Significance RB1 p.? TP53 p.([id number]) IMMUNOTHERAPY BIOMARKERS: Tumor Mutation Frontier: Low (2.3 Mutations / MB) Microsatellite Instability: MSI Negative (2.42%) PERTINENT NEGATIVE RESULTS: The following genes are NEGATIVE for clinically relevant mutations. Mutational hotspots and surrounding exonic regions were interrogated for DNA level point mutations and indels (fusions not assayed). AKT1, AR, MANUEL, ATR, ATRX, BARD1, BRAF, BRCA1, BRCA2, BRIP1, CCNE1, CDH1, CDK12, CHEK1, CHEK2, EGFR, EPCAM, ERBB2, ERBB3, ERBB4, ESR1, FANCA, FANCC, FANCL, FGFR1, FGFR2, FOXA1, KRAS, MLH1, MRE11A, MSH2, MSH6, MUTYH, MYC, NBN, PALB2, PIK3CA, PMS2, PTEN, RAD50, RAD51, RAD51B, RAD51C, RAD51D, RAD54L, RECQL4, TERT, XRCC2 Please see complete report in e-chart or EMR
== END | disposition home or self-care (01) ==
LOC: LABSPEC 15:45
PROVIDERS: PCP Internal Medicine; Referring Provider Surgery; Visit Provider Surgery
DX: R22.2 Localized swelling, mass and lump, trunk (principal)
CPT/HCPCS: 88305; 88341; 88342

== ENCOUNTER → 2023-01-14 | Outpatient (CLI) | payer MEDICARE, SELFPAY ==
[2018-02-09 10:47] VITALS: BMI 24.4
--- NOTE | 2023-01-14 06:54 | MRI_ITS ---
EXAM: MR HEAD WITHOUT AND WITH INTRAVENOUS CONTRAST CLINICAL INDICATION: LOCALLY RECURRENT BREAST CANCER, RESTAGING TECHNIQUE: Multiplanar and multisequence MR images of the brain were obtained without and with intravenous contrast. Magnetic field strength 1.5 T. CONTRAST: IV 12ml Clariscan. COMPARISON: Noncontrast head CT 07-16. FINDINGS: BRAIN AND EXTRA-AXIAL SPACES: Unremarkable. No intra- or extra-axial hemorrhage. No evidence of acute infarct. No intracranial mass or mass effect. There is preservation of the abebe/white matter interface. Posterior fossa structures are unremarkable. Ventricles are appropriate for age. No hydrocephalus. Basal cisterns are patent. SELLA: Unremarkable. Normal sella turcica, pituitary gland, infundibular stalk, optic chiasm and hypothalamus. AUDITORY SYSTEM: Unremarkable. The internal auditory canals are patent. BONES/JOINTS: Unremarkable. No discrete lytic or blastic abnormalities. SINUSES: Unremarkable as visualized. Clear. MASTOID AIR CELLS: Unremarkable as visualized. Clear. ORBITS: Unremarkable as visualized. Both globes, extraocular muscles, optic nerves and retrobulbar fat appear unremarkable. VASCULATURE: Unremarkable as visualized. Normal flow voids in the major intracranial circulation. MRI/Brain W/WO Contrast IMPRESSION: Negative MRI brain without and with intravenous contrast. Electronically Signed: Rashad Garcia MD at 16:05 EST ,
== END | disposition home or self-care (01) ==
PROVIDERS: PCP Internal Medicine; Referring Provider Internal Medicine Hematology & Oncology; Visit Provider Internal Medicine Hematology & Oncology
DX: C79.81 Secondary malignant neoplasm of breast (principal)
CPT/HCPCS: 70553; A9575

== ENCOUNTER 2023-01-27 13:45 | Emergency (ER) | payer MEDICARE, SELFPAY ==
[2018-02-09 10:47] VITALS: BMI 24.4
[2023-01-27 13:45] VITALS: BP 136/70; PULSE 89; RESP 16; TEMP 36.2; O2SAT 91
[2023-01-27 13:46] VITALS: BMI 28.9
--- NOTE | 2023-01-27 14:14 | CT_ITS ---
STUDY: CT ABDOMEN AND PELVIS WITH CONTRAST REASON FOR EXAM: Female, 72 years old. Abdominal pain. History of metastatic breast cancer. Prior mastectomy. RADIATION DOSAGE (If Supplied By Facility): CTDIvol = ( 11.07 ) mGy, DLP = ( 550.86 ) mGycm TECHNIQUE: Transaxial images were obtained from the dome of the diaphragm to the symphysis pubis without oral contrast. IV 100mL Isovue-300 was administered. Sagittal and coronal images were reconstructed. Individualized dose optimization techniques were used for this CT. COMPARISON: None. FINDINGS: The patient is status post right mastectomy. There is a 1.4 cm x 1.2 cm nodular density in the lung the inferior aspect of the right breast adjacent to the chest wall. The visualized lung bases are unremarkable. The visualized portions of the heart are within normal limits. Heterogeneous appearance of the right lobe of the liver with multiple hypodense lesions in keeping with diffuse metastatic disease. Enlargement of the inferior aspect of the right lobe of the liver. There are surgical clips in the gallbladder fossa consistent with a prior cholecystectomy. There is a 9.2 mm hypodensity in the posterior portion of the spleen. This is not a typical cyst. Normal pancreas. Normal bilateral adrenal glands. Normal right kidney. Normal left kidney. Normal visualized stomach. Normal small intestine. Normal colon. The appendix is visualized and appears normal. There is diffuse atherosclerotic calcification of the abdominal aorta, without a demonstrated aneurysm. Normal inferior vena cava. Normal retroperitoneum. Distended urinary bladder. Surgical clips are seen in both inguinal regions. Loss of height of the superior endplate of the T12 vertebrae. Prominent trabecular pattern involving the vertebrae. CT/Abdomen/Pelvis W IV Cont ONLY IMPRESSION: Metastasis involving the liver. Moderate degree of fecal material is seen in the colon. Electronically Signed: Channing Villanueva MD at 15:40 EST ,
--- NOTE | 2023-01-27 14:16 | ED.VIS.GI ---
HPI HPI - GI History of Present Illness Chief Complaint: Abd Pain Narrative Narrative: 72-year-old female states she has recurrent breast cancer, had mastectomy 6 years ago, now states that she has stage IV liver cancer was reportedly sent in by her oncologist, Dr. Garcia, because of abdominal pain and bloating. She states that she has mainly right-sided pain but diffuse and bloating that began yesterday. Her states that she ate mashed potatoes for breakfast this morning, and it seemed to worsen it. She states that she is supposed to have a Mediport placed on Friday, 2 days from now and supposed to start chemotherapy, but was sent in because of the worsening abdominal pain. She states past surgical history includes section, cholecystectomy, and appendectomy. She denies any nausea or vomiting, no fevers or chills, no problems with urination, no problems with bowel movements. No exacerbating or alleviating factors to her pain. She states it hurts whenever you touch her abdomen. [facility] Medical History Acute internal jugular vein thrombosis Anxiety Arthritis Back pain Back problem Blurry vision Breast cancer, right Chest pain Dietary restriction DVT (deep venous thrombosis) Encounter for adjustment or management of vascular access device Encounter for screening for malignant neoplasm of lung in former smoker who quit in past 15 years with 30 pack year history or greater Flu vaccine need GERD (gastroesophageal reflux disease) Headache Health care maintenance Hemorrhoids History of edema History of steroid therapy History of stress test History of tobacco use Hyperglycemia Hyperlipidemia Hypertension IBS (irritable bowel syndrome) Intertriginous dermatitis associated with moisture Invasive ductal carcinoma of right breast Legally blind Low back pain Macular degeneration Macular degeneration Metastasis to liver Neck pain Obesity (BMI 30-39.9) Recurrent breast cancer Restless legs Rheumatoid arthritis Scalp itch Screening for thyroid disorder Type 2 diabetes mellitus Venous insufficiency of both lower extremities Wears dentures Wears hearing aid Home Medications aspirin 81 mg tablet,delayed release 81 mg PO DAILY Heart Health 05/29/18 [History Last Taken 01/27/23] omeprazole magnesium 20 mg tablet,delayed release 20 mg PO DAILY GERD 03/21/20 [History Last Taken 01/27/23] Iris Vision Goggles #1 ea 08/11/20 [Rx Last Taken Unknown] nystatin 100,000 unit/gram topical powder 1 applic topical BID PRN Dermatitis #60 grams 05/08/21 [Rx Last Taken 01/27/23] hydrocodone-acetaminophen 5-325mg 5mg-325mg 1 tab PO Q12H PRN pain 06/26/21 [History Last Taken 01/27/23] biotin 5 mg capsule 5 mg PO DAILY 05/03/22 [History Last Taken 01/27/23] mecobalamin (vitamin B12) 5,000 mcg disintegrating tablet 2,500 mcg PO DAILY 05/03/22 [History Last Taken 01/27/23] latanoprost 0.005 % eye drops 1 drp EACH EYE DAILY 06/24/22 [History Last Taken 01/27/23] blood sugar diagnostic (Blood Glucose Test strips) #100 ea 07/01/22 [Rx Last Taken Unknown] furosemide 20 mg tablet 20 mg PO DAILY #90 tabs 07/01/22 [Rx Last Taken 01/27/23] metformin 500 mg tablet,extended release 24 hr 500 mg PO BID #180 tabs 08/05/22 [Rx Last Taken 01/27/23] cholecalciferol (vitamin D3) 125 mcg (5,000 unit) capsule 125 mcg PO DAILY #90 caps 09/02/22 [Rx Last Taken 01/27/23] escitalopram oxalate 5 mg tablet 5 mg PO QDAY Anxiety #90 tabs 09/02/22 [Rx Last Taken 01/27/23] losartan 100 mg tablet 100 mg PO DAILY BP #90 tabs 10/22/22 [Rx Last Taken 01/27/23] alendronate 70 mg tablet 70 mg PO QWEEK #14 tabs 11/27/22 [Rx Last Taken Unknown] blood-glucose meter #1 ea 11/27/22 [Rx Last Taken Unknown] lancets (Fingerstix Lancets) #100 ea 11/27/22 [Rx Last Taken Unknown] rosuvastatin 10 mg tablet 10 mg PO DAILY #60 tabs 11/27/22 [Rx Last Taken 01/27/23] amlodipine 2.5 mg tablet 2.5 mg PO QDAY BP #90 tabs 12/06/22 [Rx Last Taken 01/27/23] potassium chloride 10 mEq tablet,extended release 10 meq PO DAILY 12/31/22 [History Last Taken 01/27/23] Handicap Placard #1 ea 01/07/23 [Rx Last Taken Unknown] Handicap Placard #1 ea 01/07/23 [Rx Last Taken Unknown] tramadol 50 mg tablet 50 mg PO Q6H PRN pain 3 days #12 tabs 01/27/23 [Rx Last Taken Unknown] Allergy/AdvReac Type Severity Reaction Status Date / Time Antihistamines - Ethanolamine Allergy Severe TACHYCARDIA Verified 01/27/23 10:28 Antihistamines - Allergy Severe TACHYCARDIA Verified 01/27/23 10:28 Ethylenediamine Antihistamines - Piperazine Allergy Severe TACHYCARDIA Verified 01/27/23 10:28 Antihistamines - Piperidine Allergy Severe TACHYCARDIA Verified 01/27/23 10:28 diphenhydramine Allergy Severe TACHYCARDIA Verified 01/27/23 10:28 [From Benadryl] Antihistamines - Alkylamine AdvReac Mild TACHYCARDIA Verified 01/27/23 10:28 Family History Mother Heart disease Diabetes Arthritis Father Heart disease Surgical History H/O section H/O mastectomy History of appendectomy History of cholecystectomy History of lymph node dissection of right axilla History of reconstruction of right breast History of right total mastectomy History of total left knee replacement History of total right knee replacement (TKR) Hx of right knee surgery Social History Smoking Status: Former smoker quit date: 04/04/20 Tobacco: How many years used: 55 Electronic Cigarette Use: not used second hand exposure: Yes quit status: has quit before counseling given: provider counseling alcohol intake: never substance use type: does not use caffeine: Yes what type of physical activity do you participate in: none and walking frequency: does not exercise seatbelt use: always ROS ROS ED ROS Narrative Constitutional: No fever, no chills. HEENT: No sore throat. No neck pain. No loss of vision. No rhinorrhea. Cardiovascular: No chest pain. No palpitations. No pedal edema. Respiratory: No cough, no shortness of breath. Abdominal: Positive diffuse abdominal pain and bloating. No nausea. No vomiting. No problems with bowel movements. Genitourinary: No dysuria. No hematuria. Musculoskeletal: No myalgias. No arthralgias. Neurologic: No headaches. No dizziness. No lightheadedness. Skin: No rash. No change in color. Psychiatric: No depression. No anxiety. EXAM Physical Exam Narrative Exam Narrative: Afebrile. Vital signs noted. HEENT: Normocephalic. Atraumatic. PERRL, EOMI. Neck soft and supple. No point tenderness or step off. Cardiovascular: Regular rate and rhythm. No murmurs, rubs, or gallops appreciated. Respiratory: No tachypnea. Lungs clear to auscultation bilaterally. Gastrointestinal: Abdomen distended, diffusely tender, with decreased bowel sounds. No rebound or guarding. Neurological: Awake. Alert. Nonfocal, nonlateralizing. Skin: No rash. Normal color. No pallor. Musculoskeletal: No pedal edema. Full range of motion extremities. Const Vital Signs: 01/27/23 13:45 01/27/23 16:00 Temperature 97.1 F L 98.0 F Temperature Source Temporal Temporal Pulse Rate 89 67 Respiratory Rate 16 16 Blood Pressure 136/70 H 108/72 Blood Pressure Mean 92 84 Pulse Ox 91 96 Oxygen Delivery Method Room Air Room Air MDM MDM MDM Narrative Medical decision making narrative: In the differential diagnosis is bowel obstruction versus ileus versus diverticulitis. Comprehensive work-up was pursued. She will be administered morphine for analgesia. I do feel CT imaging is indicated given her cancer diagnosis. I will obtain laboratory work in the form of CBC, CMP, and UA. I did review her prior outpatient notes, especially her oncology note which shows that she had breast carcinoma with metastasis to liver. I reviewed her laboratory work from today and she has a normal white count of 10.2, hemoglobin 13.5, hematocrit 42.1, platelet count normal at 200. Her electrolyte panel is grossly unremarkable with a normal sodium of 139 and potassium 3.6, glucose appropriately elevated at 128 with a normal anion gap of 8. BUN slightly elevated at 19 with creatinine 0.7. AST is slightly elevated at 72 which I think is nonspecific and consistent with her liver metastasis. CT of the abdomen and pelvis with IV contrast was reviewed and there is no evidence of obstruction. She does have a large amount of stool in the colon. She did receive 2 doses of morphine to help control her pain. However, given that there is no acute obstruction, I do not feel that she merits observation. She states that palliative care is not coming out to her house until Friday. We discussed patient with [facility] hospice/palliative care even after I discussed the patient with the nurse practitioner for Dr. Esparza, who stated that there is a note in the computer that palliative care is coming out tomorrow morning at 10 AM. This was explained to the patient. I do not have a reason to admit her to the hospital currently. In order to help control her pain, was going to write her for tramadol tablets, and I wrote her for 12 tablets to get her through until she can have her palliative care consult. I then discovered that she had been being seen by pain management and picked up a prescription for 28 Cypress tablets which she has been taking from her pain management physician. Given her situation I do feel that she would benefit from augmenting her pain medications with tramadol because she states that she was told to not see her chronic pain management physician anymore. I think with the addition of palliative care, but they can start to manage her pain medications as well. Disposition is discharged home in stable condition. History & Record Review Discussion w/independent historian: Patient and Family Additional record(s) reviewed:: Prior ED visit and Prior labs Lab Data Attestation: I reviewed the patient's lab results. Labs: Laboratory Results - last 24 hr 01/27/23 14:25 WBC 10.2 RBC 4.64 Hgb 13.5 Hct 42.1 MCV 90.7 MCH 29.1 MCHC 32.1 RDW Std Deviation 42.7 RDW Coeff of Awa 13.0 Plt Count 200 MPV 10.6 Immature Gran % (Auto) 0.600 Neut % (Auto) 81.8 H Lymph % (Auto) 8.7 L [place] % (Auto) 8.2 Eos % (Auto) 0.3 Baso % (Auto) 0.4 Absolute Neuts (auto) 8.3 H Absolute Lymphs (auto) 0.89 Nucleated RBC % 0 Sodium 139 Potassium 3.6 Chloride 101 Carbon Dioxide 30.0 Anion Gap 8 BUN 19 H Creatinine 0.71 Est GFR (MDRD) Af Amer 103 Est GFR (MDRD) Non-Af 85 BUN/Creatinine Ratio 26.7 H Glucose 128 H Calcium 9.5 Total Bilirubin 0.70 AST 72 H ALT 44 Alkaline Phosphatase 115 Total Protein 7.2 Albumin 3.6 Globulin 3.6 Albumin/Globulin Ratio 1.0 Radiography Diagnostic Testing: Clinical Impression(s) from Imaging Studies Abdomen/Pelvis CT 01/27/23 14:14 IMPRESSION: Metastasis involving the liver. Moderate degree of fecal material is seen in the colon. Electronically Signed: Channing Villanueva MD at 15:40 EST , Management Discussion w/another healthcare provider: Customer Manager (Oncology, palliative care) Discharge Plan Triage Chief Complaint: Abd Pain ED Provider: Krunal Bourgeois Dx/Rx/DC Orders Clinical Impression: History of known metastasis to liver, Abdominal pain, Constipation Instructions: ED Abdominal Pain Unkn Cause Fem, ED Constipation (Adult) Prescriptions: New tramadol 50 mg tablet 50 mg PO Q6H PRN (Reason: pain) 3 Days Qty: 12 0RF No Action (DME) Iris Vision Goggles See Rx Instructions .Route .MEDSUPPLY Qty: 1 0RF Rx Instructions: As directed nystatin 100,000 unit/gram powder 1 applic TOPICAL BID PRN (Reason: Dermatitis) Qty: 60 3RF Protocol: *Topical Application Instructions APPLICATION INSTRUCTIONS: Apply to affected area hydrocodone-acetaminophen 5-325 mg tablet 1 tab PO Q12H PRN (Reason: pain) biotin 5 mg capsule 5 mg PO DAILY mecobalamin (vitamin B12) 5,000 mcg tablet,disintegrating 2,500 mcg PO DAILY metformin 500 mg tablet extended release 24 hr 500 mg PO BID Qty: 180 2RF rosuvastatin 10 mg tablet 10 mg PO DAILY Qty: 60 1RF alendronate 70 mg tablet 70 mg PO QWEEK Qty: 14 3RF (DME) lancets [Fingerstix Lancets] Misc See Rx Instructions .Route Qty: 100 3RF Rx Instructions: Check blood sugar twice a day (DME) blood-glucose meter Misc See Rx Instructions .Route Qty: 1 0RF Rx Instructions: Check blood sugar twice a day (DME) Handicap Placard See Rx Instructions .ROUTE .MEDSUPPLY Qty: 1 0RF Rx Instructions: As directed, length of time 3 years (DME) Handicap Placard See Rx Instructions .ROUTE .MEDSUPPLY Qty: 1 0RF Rx Instructions: As directed, length of time 3 years potassium chloride 10 mEq tablet extended release 10 meq PO DAILY aspirin 81 MG tablet,delayed release (DR/EC) 81 mg PO DAILY omeprazole magnesium 20 MG tablet,delayed release (DR/EC) 20 mg PO DAILY latanoprost 0.005 % drops 1 drp EACH EYE DAILY Patient Comments: Apply 1 drop in both eyes daily (DME) Blood Glucose Test Strip See Rx Instructions .Route Qty: 100 3RF Rx Instructions: Check blood sugar twice a day furosemide 20 mg tablet 20 mg PO DAILY Qty: 90 2RF cholecalciferol (vitamin D3) 125 mcg (5,000 unit) capsule 125 mcg PO DAILY Qty: 90 2RF escitalopram oxalate 5 mg tablet 5 mg PO QDAY Qty: 90 2RF losartan 100 mg tablet 100 mg PO DAILY Qty: 90 2RF amlodipine 2.5 mg tablet 2.5 mg PO QDAY Qty: 90 3RF Primary Care Provider: Weston Tobar Referrals: Weston Tobar MD [Primary Care Provider] - Activity Restrictions/Additional Instructions: Palliative care is going to visit you tomorrow morning at 10 AM. They will write you for more pain medications. Take the Vicodin that you had filled. Disposition Disposition: Home, Self Care
[2023-01-27] MEDS: 0.9% Normal Saline (1000mL) 1,000 ML 1000 ML IV (14:24)
[2023-01-27] MEDS: Morphine 4 MG/ML Syringe IV ×2 (14:25→15:41)
[2023-01-27 14:32] LABS: Absolute Lymphocyte Count 0.89 X10^3/uL (0.83-4.51); Absolute Neutrophil Count 8.3 X10^3/uL (2.0-7.7); Basophil# 0.04 X10^3/uL; Basophil% 0.4 % (0-1); Eosinophil# 0.03 X10^3/uL; Eosinophils% 0.3 % (0-5); Hematocrit 42.1 % (37-47); Hemoglobin 13.5 g/dL (12.0-15.0); Lymphocyte # 0.89 X10^3/ul (0.83-4.51); Lymphocyte % 8.7 % (19-41); Mean Corp Hgb Conc 32.1 g/dL (32-36); Mean Corpuscular Hgb 29.1 pg (27.0-32.0); Mean Corpuscular Volume 90.7 fL (81-99); Mean Platelet Vol. 10.6 fl (6.2-12.0); Monocyte# 0.84 X10^3/uL; Monocyte% 8.2 % (0-10); NRBC Flagged by Analyzer 0 % (0-5); Neutrophil # 8.33 X10^3/uL (2.7-7.7); Neutrophil % 81.8 % (47-70); Platelet Count 200 K/mm3 (150-450); RBC Distribution Width SD 42.7 fl (35.1-43.9); Red Blood Count 4.64 M/mm3 (4.2-5.4); White Blood Count 10.2 K/mm3 (4.4-11.0)
[2023-01-27 14:47] LABS: AST(SGOT) 72 U/L (15-37); Alanine Aminotransfer ALT/SGPT 44 U/L (13-56); Albumin, Serum 3.6 g/dL (3.2-5.0); Alkaline Phosphatase 115 U/L (45-117); Anion Gap 8 (5-15); BUN 19 mg/dL (7-18); BUN/Creat Ratio 26.7 RATIO (10-20); Calcium,Total 9.5 mg/dL (8.5-10.1); Chloride 101 mmol/L (98-107); Creatinine, Serum 0.71 mg/dL (0.55-1.02); EST Glomerular Filtration Rate 85 mL/min (>60); Est Glom Filt Rate - Afr Amer 103 mL/min (>60); Globulin 3.6 g/dL (2.2-4.2); Glucose 128 mg/dL (74-106); Potassium 3.6 mmol/L (3.5-5.1); Protein, Total 7.2 g/dL (6.4-8.2); Sodium Level 139 mmol/L (136-145)
[2023-01-27 16:00] VITALS: BP 108/72; PULSE 67; RESP 16; TEMP 36.7; O2SAT 96
--- NOTE | 2023-01-27 16:59 | ED.RN ---
PT AWARE PALLIATIVE CARE TO COME SEE PT AT 10:00 TOMORROW. PT REQUESTS PAIN MEDS BE SENT TO [facility] [place],
[2023-01-27 17:14] VITALS: BP 118/76; PULSE 69; RESP 16; TEMP 36.6; O2SAT 98
== END 2023-01-27 17:16 | disposition home or self-care (01) ==
PROVIDERS: Emergency Provider Emergency Medicine; PCP Internal Medicine; Visit Provider Emergency Medicine
DX: R10.9 Unspecified abdominal pain (principal); C78.7 Secondary malignant neoplasm of liver and intrahepatic bile duct; C50.919 Malignant neoplasm of unspecified site of unspecified female breast; E11.9 Type 2 diabetes mellitus without complications; Z87.891 Personal history of nicotine dependence; I10 Essential (primary) hypertension; E78.5 Hyperlipidemia, unspecified; Z90.10 Acquired absence of unspecified breast and nipple; Z90.49 Acquired absence of other specified parts of digestive tract; K59.00 Constipation, unspecified
CPT/HCPCS: 74177; 80053; 85025; 96361; 96374; 96376; 99282; J7030; Q9967

== ENCOUNTER 2023-01-29 10:13 | Day surgery (SDC) | payer MEDICARE, SELFPAY ==
[2018-02-09 10:47] VITALS: BMI 24.4
[2023-01-29] VITALS (9 sets, daily range): BP systolic 130–159; BP diastolic 77–102; PULSE 73–85; RESP 16; TEMP 36.2–37.6; O2SAT 92–96; BMI 27.1
[2023-01-29] MEDS: Lactated Ringers 1,000 ML 15 ML IV (10:52)
[2023-01-29 11:14] LABS: Bedside Glucose 91 mg/dL (74-106)
--- NOTE | 2023-01-29 11:36 | PCM.HP.STD ---
HPI - General General Date of Admission: 01/29/23 HPI Narrative LUIS F FERREIRA, is a 72 F who presents for right to port placement. 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 Patient previously had a left IJ Port-A-Cath and did have a clot in her left IJ after completing her chemotherapy and having it removed. [facility] Medical History Acute internal jugular vein thrombosis Anxiety Arthritis Back pain Back problem Blurry vision Breast cancer, right Chest pain Dietary restriction DVT (deep venous thrombosis) Encounter for adjustment or management of vascular access device Encounter for screening for malignant neoplasm of lung in former smoker who quit in past 15 years with 30 pack year history or greater Flu vaccine need GERD (gastroesophageal reflux disease) Headache Health care maintenance Hemorrhoids History of edema History of steroid therapy History of stress test History of tobacco use Hyperglycemia Hyperlipidemia Hypertension IBS (irritable bowel syndrome) Intertriginous dermatitis associated with moisture Invasive ductal carcinoma of right breast Legally blind Low back pain Macular degeneration Macular degeneration Metastasis to liver Neck pain Obesity (BMI 30-39.9) Recurrent breast cancer Restless legs Rheumatoid arthritis Scalp itch Screening for thyroid disorder Type 2 diabetes mellitus Venous insufficiency of both lower extremities Wears dentures Wears hearing aid Home Medications aspirin 81 mg tablet,delayed release 81 mg PO DAILY Heart Health 05/29/18 [History Last Taken 01/27/23] omeprazole magnesium 20 mg tablet,delayed release 20 mg PO DAILY GERD 03/21/20 [History Last Taken 01/29/23] Iris Vision Goggles #1 ea 08/11/20 [Rx Last Taken Unknown] nystatin 100,000 unit/gram topical powder 1 applic topical BID PRN Dermatitis #60 grams 05/08/21 [Rx Last Taken 01/27/23] hydrocodone-acetaminophen 5-325mg 5mg-325mg 1 tab PO Q12H PRN pain 06/26/21 [History Last Taken 01/27/23] biotin 5 mg capsule 5 mg PO DAILY 05/03/22 [History Last Taken 01/27/23] mecobalamin (vitamin B12) 5,000 mcg disintegrating tablet 2,500 mcg PO DAILY 05/03/22 [History Last Taken 01/27/23] latanoprost 0.005 % eye drops 1 drp EACH EYE DAILY 06/24/22 [History Last Taken 01/27/23] blood sugar diagnostic (Blood Glucose Test strips) #100 ea 07/01/22 [Rx Last Taken Unknown] furosemide 20 mg tablet 20 mg PO DAILY #90 tabs 07/01/22 [Rx Last Taken 01/27/23] metformin 500 mg tablet,extended release 24 hr 500 mg PO BID #180 tabs 08/05/22 [Rx Last Taken 01/27/23] cholecalciferol (vitamin D3) 125 mcg (5,000 unit) capsule 125 mcg PO DAILY #90 caps 09/02/22 [Rx Last Taken 01/27/23] escitalopram oxalate 5 mg tablet 5 mg PO QDAY Anxiety #90 tabs 09/02/22 [Rx Last Taken 01/27/23] losartan 100 mg tablet 100 mg PO DAILY BP #90 tabs 10/22/22 [Rx Last Taken 01/29/23] alendronate 70 mg tablet 70 mg PO QWEEK #14 tabs 11/27/22 [Rx Last Taken Unknown] blood-glucose meter #1 ea 11/27/22 [Rx Last Taken Unknown] lancets (Fingerstix Lancets) #100 ea 11/27/22 [Rx Last Taken Unknown] rosuvastatin 10 mg tablet 10 mg PO DAILY #60 tabs 11/27/22 [Rx Last Taken 01/27/23] amlodipine 2.5 mg tablet 2.5 mg PO QDAY BP #90 tabs 12/06/22 [Rx Last Taken 01/29/23] potassium chloride 10 mEq tablet,extended release 10 meq PO DAILY 12/31/22 [History Last Taken 01/27/23] Handicap Placard #1 ea 01/07/23 [Rx Last Taken Unknown] Handicap Placard #1 ea 01/07/23 [Rx Last Taken Unknown] tramadol 50 mg tablet 50 mg PO Q6H PRN pain 3 days #12 tabs 01/27/23 [Rx Last Taken Unknown] Allergy/AdvReac Type Severity Reaction Status Date / Time Antihistamines - Ethanolamine Allergy Severe TACHYCARDIA Verified 01/29/23 10:46 Antihistamines - Allergy Severe TACHYCARDIA Verified 01/29/23 10:46 Ethylenediamine Antihistamines - Piperazine Allergy Severe TACHYCARDIA Verified 01/29/23 10:46 Antihistamines - Piperidine Allergy Severe TACHYCARDIA Verified 01/29/23 10:46 diphenhydramine Allergy Severe TACHYCARDIA Verified 01/29/23 10:46 [From Benadryl] Antihistamines - Alkylamine AdvReac Mild TACHYCARDIA Verified 01/29/23 10:46 Family History Mother Heart disease Diabetes Arthritis Father Heart disease Surgical History H/O section H/O mastectomy History of appendectomy History of cholecystectomy History of lymph node dissection of right axilla History of reconstruction of right breast History of right total mastectomy History of total left knee replacement History of total right knee replacement (TKR) Hx of right knee surgery Social History Smoking Status: Former smoker quit date: 04/04/20 Tobacco: How many years used: 55 Electronic Cigarette Use: not used second hand exposure: Yes quit status: has quit before counseling given: provider counseling alcohol intake: never substance use type: does not use caffeine: Yes what type of physical activity do you participate in: none and walking frequency: does not exercise seatbelt use: always Vital Signs Vital Signs Vital Signs: 01/29/23 10:47 01/29/23 10:47 Temperature 99.6 F H Temperature Source Temporal Pulse Rate 74 Respiratory Rate 16 Respiratory Pattern Normal Blood Pressure 140/77 H Blood Pressure Mean 98 Blood Pressure Source Monitor Blood Pressure Position Semi-Fowlers Blood Pressure Location Left Arm Pulse Ox 95 Oxygen Delivery Method Room Air Weight Weight: 130 lb 1.164 oz Body Mass Index (BMI) 27.1 Physical Exam Const oriented x3 Resp normal respiratory effort Cardio regular rate GI soft to palpation Palpation: tender RUQ Extremity normal to inspection Results Lab / Micro Data Labs: Laboratory Results - last 24 hr 01/29/23 10:39: POC Glucose 91 Assessment & Plan Assessment/Plan (1) Admission for fitting of Port-A-Cath: (2) Recurrent breast cancer: QUALIFIERS: Laterality: right Qualified Code(s): C50.911 - Malignant neoplasm of unspecified site of right female breast (3) Metastasis to liver: PLAN: Plan I have discussed above with the patient- Port-a-Cath placement. Right IJ Patient has been counseled as to the risks/benefits of the procedure. I have explained the risks of the surgery, including but not limited to: infection, bleeding, injury to any blood vessels/nerves, injury to lungs (such as pneumothorax or hemothorax and need for chest tube), not having any access, nonfunctioning of port due to thrombosis, infection of port, etc. the patient understands and agrees to proceed. I have answered all the patient's questions to the patient?s satisfaction and the patient has no further questions. Divine Win M.D. Pager: [phone] [facility] [address] [place] [address] [address] [place] [address] Office: [phone]
[2023-01-29] MEDS: Cefazolin 2 GM in 0.9% Normal Saline (100mL Bag) 100 ML IV (12:30)
[2023-01-29] MEDS: Bupivacaine Mpf 0.5% 30 ML VIAL (12:56)
[2023-01-29] MEDS: Lidocaine 1% /Epi 1:100 (50ml) 50 ML VIAL (12:56)
--- NOTE | 2023-01-29 13:03 | PCM.OPRPT ---
Report of Operation Date of Procedure: 01/29/23 Pre-Operative Diagnosis: z45.2, recurrent metastatic breast cancer Post-Operative Diagnosis: Same Surgery/Procedure Performed:: 1. Placement of right IJ Port-A-Cath 2. Ultrasound 3. Use of fluoroscopy Surgeon: Divine Win Type of Anesthesia: Local MAC Anesthesiologist: Nikhil Alves Special Medications: Ancef 2 g IV x 1 Specimen's removed: None Estimated Blood Loss (mL): 10 cc Description of Procedure: After informed consent was given, the patient was brought to the operating room and placed in the supine position. Appropriate time out protocol was followed. Patient was then given IV conscious sedation for anesthesia. The patient's right upper chest and neck were then prepped with a surgical skin preparation and sterile surgical drapes were placed. After proper landmarks were ascertained, the skin at the upper right chest area was then infiltrated with 1:1 mixture of 1% lidocaine with epinephrine and 0.5% marcaine. A needle trocar was then inserted into the right internal jugular vein with ultrasound guidance-multiple vessels were viewed with u/s and the right IJ was chosen-- and there was good aspiration of venous blood. A wire was then threaded into the needle trocar and this was visualized under fluoroscopy to ensure that the wire was in the superior vena cava. Once this was done, then the needle trocar was removed. A small skin alysia was made with an 11 blade knife at the wire entrance site. The dilator with the introducer sheath attached was then placed over the wire into the right internal jugular vein via the Seldinger technique and this was visualized under fluoroscopy. The dilator and sheath were in proper position as visualized by fluoroscopy. A subcutaneous pocket was then created caudad to the catheter insertion site. A transverse skin incision was made after the skin and subcutaneous tissues were infiltrated with local anesthetic. Blunt dissection was then used to create a space large enough for placement of the subcutaneous port. The catheter was then tunneled into the subcutaneous pocket. The wire and dilator were then removed. The catheter was then threaded into the introducer sheath and was positioned with its tip at the junction of the superior vena cava and the right atrium as visualized under fluoroscopy. The excess catheter was transected. The catheter was then attached to the subcutaneous port using manufacturers guidelines. The catheter was flushed with a heparin saline mixture prior to placement. Hemostasis was carefully controlled with electrocautery. The port was sutured to the subcutaneous fascia using 2-0 Vicryl suture at two sites. The port was then placed in the subcutaneous pocket. The incision were reapproximated with interrupted subdermal 3-0 vicryl sutures. The skin was reapproximated with 3-0 nylon suture in a interrupted fashion. Steristrips were used for reinforcement of the skin closure at IJ insertion site and a sterile opsite dressings were applied. The patient tolerated the procedure well. Grafts/Implants Used: Bard PowerPort isp M.R.I. 6Fr Lot [id number] Complications none
--- NOTE | 2023-01-29 13:06 | DCINST_ITS ---
Discharge Instructions Procedure Port-A-Cath Diet Discharge Diet: Light diet - advance as tolerated Activity May shower in (days): 5 (Keep port site clean and dry x5 days. Neck incision okay to get wet after 1 day. Okay to lower shower and upper sponge bath. OR okay to taper off port site with a Ziploc bag to shower) Lifting Restrictions: No lifting > 15 pounds for 3 days with the arm on the side of the port Dressing / Incision Call your doctor if your incision/area has: Continuous Slow Oozing, Sudden Increased Bleeding, Increased Pain/ Swelling, Increased Redness, Foul Smelling Discharge and Swelling at the incision site Call your doctor if you observe: Fever of 101 or Higher Change Dressing in: 2 days (2-3 days- port site; ok to remove neck opsite in 1 day) Follow Up Care Please Follow Up With: Divine Win MD When: In 10 days for permanent suture removal?call office for appointment Test Results: Test results from this visit will be discussed in further detail at your follow- up appointment, if applicable. Discharge Plan Admission Attending Provider: Divine Win Primary Care Provider: Weston Tobar Discharge Orders/Prescriptions Prescriptions: Continued (DME) [employer] Goggles See Rx Instructions .Route .MEDSUPPLY Qty: 1 0RF Rx Instructions: As directed nystatin 100,000 unit/gram powder 1 applic TOPICAL BID PRN (Reason: Dermatitis) Qty: 60 3RF Protocol: *Topical Application Instructions APPLICATION INSTRUCTIONS: Apply to affected area hydrocodone-acetaminophen 5-325 mg tablet 1 tab PO Q12H PRN (Reason: pain) biotin 5 mg capsule 5 mg PO DAILY mecobalamin (vitamin B12) 5,000 mcg tablet,disintegrating 2,500 mcg PO DAILY metformin 500 mg tablet extended release 24 hr 500 mg PO BID Qty: 180 2RF rosuvastatin 10 mg tablet 10 mg PO DAILY Qty: 60 1RF alendronate 70 mg tablet 70 mg PO QWEEK Qty: 14 3RF (DME) lancets [Fingerstix Lancets] Misc See Rx Instructions .Route Qty: 100 3RF Rx Instructions: Check blood sugar twice a day (DME) blood-glucose meter Misc See Rx Instructions .Route Qty: 1 0RF Rx Instructions: Check blood sugar twice a day (DME) Handicap Placard See Rx Instructions .ROUTE .MEDSUPPLY Qty: 1 0RF Rx Instructions: As directed, length of time 3 years (DME) Handicap Placard See Rx Instructions .ROUTE .MEDSUPPLY Qty: 1 0RF Rx Instructions: As directed, length of time 3 years potassium chloride 10 mEq tablet extended release 10 meq PO DAILY aspirin 81 MG tablet,delayed release (DR/EC) 81 mg PO DAILY omeprazole magnesium 20 MG tablet,delayed release (DR/EC) 20 mg PO DAILY latanoprost 0.005 % drops 1 drp EACH EYE DAILY Patient Comments: Apply 1 drop in both eyes daily tramadol 50 mg tablet 50 mg PO Q6H PRN (Reason: pain) 3 Days Qty: 12 0RF (DME) Blood Glucose Test Strip See Rx Instructions .Route Qty: 100 3RF Rx Instructions: Check blood sugar twice a day furosemide 20 mg tablet 20 mg PO DAILY Qty: 90 2RF cholecalciferol (vitamin D3) 125 mcg (5,000 unit) capsule 125 mcg PO DAILY Qty: 90 2RF escitalopram oxalate 5 mg tablet 5 mg PO QDAY Qty: 90 2RF losartan 100 mg tablet 100 mg PO DAILY Qty: 90 2RF amlodipine 2.5 mg tablet 2.5 mg PO QDAY Qty: 90 3RF Referrals / Follow Up: Weston Tobar MD [Primary Care Provider] - Disposition Disposition (needs filled in before D/C Order can be placed): Home, Self Care
--- NOTE | 2023-01-29 13:10 | RAD_ITS ---
STUDY: X-RAY CHEST REASON FOR EXAM: Female, 72 years old. Port -- pacu TECHNIQUE: Single AP portable view of the chest. COMPARISON: Comparison is made with prior study dated July 07, 2020. FINDINGS: A right-sided Port-A-Cath is seen with the tip at the junction of the superior vena cava and right atrium. Surgical clips are seen in the right axilla. The lungs are clear and expanded. There is no demonstrated pleural abnormality. Normal size heart. Normal mediastinum and wil. Normal visualized pulmonary arteries. There is atherosclerotic calcification of the aortic arch with tortuosity. There are diffuse degenerative changes of the visualized thoracic spine. There is degenerative osteoarthritis of the bilateral shoulders. There is no demonstrated abnormality of the visualized soft tissue structures of the upper abdomen. RAD/Chest 1 View (Portable) IMPRESSION: The tip of the right-sided prerna catheter is at the junction of the superior vena cava and right atrium. Electronically Signed: Channing Villanueva MD at 13:53 EST ,
[2023-01-29] MEDS: traMADol 50 MG Tablet PO (14:56)
== END 2023-01-29 15:25 | disposition home or self-care (01) ==
LOC: SDC 10:14 → AC 10:17
PROVIDERS: PCP Internal Medicine; Referring Provider Surgery; Visit Provider Surgery
PROC: (CPT 36561; principal; 2023-01-29 12:05)
DX: Z45.2 Encounter for adjustment and management of vascular access device (principal); C78.7 Secondary malignant neoplasm of liver and intrahepatic bile duct; I82.C12 Acute embolism and thrombosis of left internal jugular vein; C50.911 Malignant neoplasm of unspecified site of right female breast; E11.9 Type 2 diabetes mellitus without complications; I10 Essential (primary) hypertension; E78.5 Hyperlipidemia, unspecified; Z79.84 Long term (current) use of oral hypoglycemic drugs; Z79.82 Long term (current) use of aspirin; Z87.891 Personal history of nicotine dependence; Z79.899 Other long term (current) drug therapy; Z90.10 Acquired absence of unspecified breast and nipple; E66.9 Obesity, unspecified
CPT/HCPCS: 36561; 00532; 71045; 77001; 82962; J7120; J2405

== ENCOUNTER 2023-03-07 22:15 | Inpatient (IN) | payer MEDICARE, SELFPAY ==
[2018-02-09 10:47] VITALS: BMI 24.4
[2023-03-07 22:16] VITALS: PULSE 90; RESP 20; TEMP 36.6; O2SAT 95; BMI 29.0
--- OUTSIDE RECORDS SUMMARY | 2023-03-07 22:22 | XMS RPT_ITS | CCD ---
Author Name Unknown Address [address] [place] [address] Organization [facility] Care Team Providers Care Mult Au Matic Operator Name Role Phone Jamar Leon MD Unavailable GIL, ALYCIA Unavailable Unavailable GIL, ALYCIA Unavailable Unavailable [facility] Unavailable Unavailable Weston Tobar MD Primary Care Provider [phone] Allergies Allergy Classification Reported Allergen(s) Allergy Type Date of Onset Reaction(s) Facility (1 source) [facility] ANTIHISTAMINE ALLERGY drug allergy 08-29-19 17 heart beats fast, headache [facility] Work Phone: (3 sources) ANTIHISTAMINES - ALKYLAMINE; Translations: [ANTIHISTAMINES - ALKYLAMINE] Propensity to adverse reactions to drug (disorder) 03-02-19 08 Other: See Comments [facility] Other [place] [facility] Medications Completed/Discontinued Medications Medication Drug Class(es) Dates Sig (Normalized) Sig (Original) acetaminophen 500 mg oral tablet (1 source) Start: 06-14-2014 take 2 tablets by mouth every eight hours acetaminophen (TYLENOL) 500 mg tablet Take 2 tablets by mouth every 8 hours. 90 tablet 0 06/14/2014 Active Problems Active Problems Problem Classification Problem Date Documented Da te Episodic/Chronic Cancer of breast (1 source) Infiltrating duct carcinoma of breast; Translations: [Malignant neoplasm of unspecified site of right female breast] Onset: 7 10-15-2016 Chronic Esophageal disorders (1 source) Gastroesophageal reflux disease; Translations: [Gastro-esophageal reflux disease with esophagitis] 08-28-2016 Chronic Osteoarthritis (1 source) Osteoarthritis of knee; Translations: [Osteoarthritis of knee, unspecified] Onset: 04-06-03-2014 Chronic Other gastrointestinal disorders (1 source) Irritable bowel syndrome with diarrhea; Translations: [Irritable bowel syndrome with diarrhea] Onset: 7 08-30-2016 Chronic Rheumatoid arthritis and related disease (1 source) Rheumatoid arthritis with rheumatoid factor, unspecified; Translations: [Rheumatoid arthritis with rheumatoid factor, unspecified] 08-28-2016 Chronic Substance-related disorders (1 source) Smoker; Translations: [Nicotine dependence, unspecified, uncomplicated] Onset: 7 11-01-2016 Chronic Unclassified (1 source) Preventive procedure; Translations: [Encounter for general adult medical examination without abnormal findings] Onset: 7 08-30-2016 Unclassified (1 source) Aftercare ; Translations: [Encounter for other specified surgical aftercare] Onset: 7 12-25-2016 Unclassified (1 source) Unknown / UNK(Unknown) Onset: 8 Past or Other Problems Problem Classification Problem Date Documented Date Episodic/Chronic Cardiac dysrhythmias (1 source) Palpitations; Translations: [Palpitations] Onset: 04-16-2017 Episodic Complication of device; implant or graft (1 source) Other mechanical complication of breast prosthesis and implant, initial encounter; Translations: [Other mechanical complication of breast prosthesis and implant, initial encounter] Onset: 12-25-2016 12-25-2016 Episodic Complications of surgical procedures or medical care (1 source) Other complications of procedures, not elsewhere classified, initial encounter; Translations: [Other complications of procedures, not elsewhere classified, initial encounter] Onset: 12-25-2016 12-25-2016 Episodic Nonmalignant breast conditions (3 sources) Breast lump; Translations: [Pain of breast] Onset: 09-13-2016 09-13-2016 Episodic Other injuries and conditions due to external causes (1 source) Late effect of radiation; Translations: [Radiation sickness, unspecified, sequela] Onset: 10-18-2016 11-01-2016 Episodic Other lower respiratory disease (2 sources) Shortness of breath; Translations: [Shortness of breath] Onset: 04-16-2017 Episodic Spondylosis; intervertebral disc disorders; other back problems (1 source) Pain in thoracic spine; Translations: [Pain in thoracic spine] Onset: 08-30-2016 08-30-2016 Episodic Unclassified (1 source) Encounter for screening for malignant neoplasm of cervix; Translations: [Encounter for screening for malignant neoplasm of cervix] Onset: 12-06-2016 12-06-2016 Episodic Unclassified (2 sources) Estrogen receptor positive status [ER+]; Translations: [History of right mastectomy] Onset: 10-18-2016 11-01-2016 Episodic Results Test Name Value Interpretation Reference Range Facil ity Vital Signs Date Time Vital Sign Value Performing Clinician Eva benavides 12-25-2016 08:51-0400 BMI (Body Mass Index) 23.43 kg/m2 [facility] Work Phone: 12-25-2016 08:51-0400 Body Temperature 97.7 [degF] [facility] Work Phone: 12-25-2016 08:51-0400 BP Diastolic 89 mm[Hg] [facility] Work Phone: 12-25-2016 08:51-0400 BP Systolic 152 mm[Hg] [facility] Work Phone: 12-25-2016 08:51-0400 BSA (Body Surface Area) 1.54 m2 [facility] Work Phone: 12-25-2016 08:51-0400 Height 154.94 cm [facility] Work Phone: 12-25-2016 08:51-0400 Pulse (Heart Rate) 80 /min [facility] Work Phone: 12-25-2016 08:51-0400 Respiratory Rate 16 /min [facility] Work Phone: 12-25-2016 08:51-0400 Weight 56.25 kg [facility] Work Phone: Encounters Encounter Date Encounter Type Care Provider Facility Start: 05-22-2022 ambulatory Khloe Faggiol i [facility] Work Phone: [facility] Procedures Date Procedure Procedure Detail Performing Clinician Start: 12-11-2016 End: 12-25-2016 Follow Up Appt 2 weeks Jamar Leon MD Start: 12-06-2016 End: 12-12-2016 Cytp slides c/v mnl scr under phys Weston Tobar MD Work Phone: Start: 12-06-2016 End: 12-12-2016 Follow Up Appt 3 months Weston keller MD Work Phone: Start: 12-04-2016 End: 12-25-2016 Follow up Appt 1 week Jamar Leon MD Start: 11-28-2016 End: 12-25-2016 Follow up Appt 1 week Jamar Leon MD Start: 10-18-2016 End: 11-17-2016 *CDIF - Clostridium Diff. Toxin Stool Jamar Leon MD Start: 10-18-2016 End: 11-01-2016 Follow Up Appt Other Jamar Leon MD Start: 08-30-2016 End: 09-10-2016 *CBC with Differential Weston mary MD Work Phone: Start: 08-30-2016 End: 09-10-2016 *CMP Complete Metabolic Panel Weston Tobar MD Work Phone: Start: 08-30-2016 End: 09-10-2016 Follow Up Appt 3 months Weston keller MD Work Phone: Start: 08-30-2016 End: 09-10-2016 Hemoglobin A1c/Hemoglobin.total in Blood Weston Tobar MD Work Phone: Start: 08-30-2016 End: 09-10-2016 Lipid 1996 panel - Serum or Plasma Weston Tobar MD Work Phone: Start: 08-30-2016 End: 09-10-2016 Mammogram, screening Weston Tobar MD Work Phone: Start: 11-30-2015 Colonoscopy Khloe montoya [facility] Work Phone: Plan of Treatment Date Care Activity Detail Author Start: 10-25-2022 Influenza vaccination INFLUENZA (Season Ended) [facility] Start: 02-24-2022 ADVANCE DIRECTIVE DISCUSSION ADVANCE DIRECTIVE DISCUSSION [facility] Start: 02-24-2022 DEPRESSION ASSESSMENT DEPRESSION ASSESSMENT [facility] Start: 09-10-2021 LIPID SCREEN LIPID SCREEN [facility] Start: 11-29-2020 Colonoscopy COLONOSCOPY [facility] Start: 11-29-2020 COLORECTAL CANCER SCREENING COLORECTAL CANCER SCREENING [facility] Start: 06-03-2017 DIABETES SCREEN DIABETES SCREEN [facility] Start: 12-27-2016 End: 12-27-2016 Appointment Appointment [facility] Work Phone: Start: 12-25-2016 End: 12-25-2016 Follow Up Appt Other Follow Up Appt Other [facility] Work Phone: Start: 12-25-2016 End: 12-25-2016 Appointment Appointment [facility] Work Phone: Start: 12-11-2016 End: 12-25-2016 Follow Up Appt 2 weeks Follow Up Appt 2 weeks [facility] Work Phone: Start: 12-06-2016 End: 12-12-2016 Cytp slides c/v mnl scr under phys Pap Smear [facility] Work Phone: Start: 12-06-2016 End: 12-12-2016 Follow Up Appt 3 months Follow Up Appt 3 months [facility] Work Phone: Start: 12-04-2016 End: 12-25-2016 Follow up Appt 1 week Follow up Appt 1 week [facility] Work Phone: Start: 11-28-2016 End: 12-25-2016 Follow up Appt 1 week Follow up Appt 1 week [facility] Work Phone: Start: 11-22-2016 End: 11-22-2016 Oncology Referral Oncology Referral Que [facility], [address], [place], [address] [facility] Work Phone: Start: 11-01-2016 End: 11-06-2016 Follow Up Appt Other Follow Up Appt Other [facility] Work Phone: Start: 11-01-2016 End: 11-01-2016 Us exam, breast(s) US Breast(s) [facility] Work Phone: Start: 10-18-2016 End: 11-17-2016 *CDIF - Clostridium Diff. Toxin Stool *CDIF - Clostridium Diff. Toxin Stool [facility] Work Phone: Start: 10-18-2016 End: 11-01-2016 Follow Up Appt Other Follow Up Appt Other [facility] Work Phone: Start: 10-11-2016 End: 10-15-2016 Bx breast w/device 1st lesion ultrasound guid Biopsy, breast, with ultrasound guidance [facility] Work Phone: Start: 10-11-2016 End: 10-15-2016 Follow Up Appt Other Follow Up Appt Other [facility] Work Phone: Start: 09-27-2016 End: 09-30-2016 Bx breast w/device 1st lesion ultrasound guid Bx Breast, device placement, US guidance [facility] Work Phone: Start: 09-27-2016 End: 09-30-2016 Follow Up Appt Other Follow Up Appt Other [facility] Work Phone: Start: 09-13-2016 End: 09-16-2016 Follow Up after Imaging/labs Follow Up after Imaging/labs [facility] Work Phone: Start: 09-13-2016 End: 09-13-2016 Mammogram, one breast Mammogram, Diagnositic Unilateral [facility] Work Phone: Start: 09-13-2016 End: 09-13-2016 Us exam, breast(s) US Breast(s) [facility] Work Phone: Start: 08-30-2016 End: 09-10-2016 *CBC with Differential *CBC with Differential [facility] Work Phone: Start: 08-30-2016 End: 09-10-2016 *CMP Complete Metabolic Panel *CMP Complete Metabolic Panel [facility] Work Phone: Start: 08-30-2016 End: 09-10-2016 Follow Up Appt 3 months Follow Up Appt 3 months [facility] Work Phone: Start: 08-30-2016 End: 09-10-2016 Hemoglobin A1c/Hemoglobin.total mass fraction (Bld) *HgA1C [facility] Work Phone: Start: 08-30-2016 End: 09-10-2016 Lipid panel [AGGREGATE] *Lipid Profile [facility] Work Phone: Start: 08-30-2016 End: 09-10-2016 Mammogram, screening Mammogram, Screening, both breasts [facility] Work Phone: Start: 2014 BONE DENSITY BONE DENSITY [facility] Start: 1999 SHINGRIX VACCINE (1 of 2) SHINGRIX VACCINE (1 of 2) [facility] Start: 1994 COLOGUARD (FIT-DNA) COLOGUARD (FIT-DNA) [facility] Start: [address] COLONOGRAPHY [facility] Start: 1994 FECAL OCCULT BLOOD FECAL OCCULT BLOOD [facility] Start: 1994 SIGMOIDOSCOPY SIGMOIDOSCOPY [facility] Start: 1989 Mammography MAMMOGRAM [facility] Start: 02-03-1968 Urine microalbumin profile DTAP,TDAP,TD (1 - Tdap) [facility] Start: 1967 HEPATITIS C SCREENING HEPATITIS C SCREENING [facility] Start: 1955 PNEUMOCOCCAL: 65+ (1 - PCV) PNEUMOCOCCAL: 65+ (1 - PCV) [facility] Start: 1949 COVID-19 VACCINE (#1) COVID-19 VACCINE (#1) [facility] Patient Education Medications [facility] Work Phone: Payers Date Payer Category Payer Medicare MEDICARE MEDICAR E A AND B [id number] 2014-Present [phone] [place] [address] Medicare [id number] Medicare [id number] Social History Date Type Detail Facility Start: [facility]-16-2017 [facility] History of tobacco use Cigarette Smoker C [facility] Start: 04-16-2017 Cigarettes smoked cu rrent (pack per day) - Reported 0.5 [facility] Start: 04-16-2017 Tobacco use and exposure Smoke less tobacco non-user [facility] Start: 04-16-2017 Alcohol intake Current non-dr head swamper of alcohol (finding) [facility] Start: 11-30-2015 [facility] Start: 1950 Sex Assigned At Not on file C [facility] Medical Equipment Procedure Code Equipment Code Equipment Origin al Text Equipment Identifier Dates Renny Bn Co Hv 40g m - [id number] Start: 06-13-2014 Bear 4mm Oxfd Ar cm Lt Menis Kn - [id number] Start: 06-13-2014 Progress note 05-22-2022 Note Date & Type Note Facility 05-22-2022 Note HNO ID: [id number] Author: Do Mireles Service: ? Author Type: ? Type: Progress Notes Filed: 05/22/2022 3:36 PM Note Text: Attestation signed by Khloe Smith RPh at 05/27/2022 11:47 AM Approving student documentation and outreach below. Khloe Smith RPh PharmD BCPS Lisa Ferreira is identified through a medication adherence outreach initiative based on pharmacy claims data from [employer] (insurer) for Non-insulin DM medication(s). Patient is reviewed 05/22/22 due to medication adherence concerns with the following medications (name, strength, sig): metformin 500 mg tablets - 1 tablet by mouth twice daily. Per data/report, last fill date and days supply: metformin 500 mg tablets - 1 tablet by mouth ONCE daily 90 d/s filled on 05/03/22 Outcome of review/outreach: (choose outcome source and status) - Medication changed or discontinued per out of network report Do Mireles PharmD candidate 2022 [facility] History of Present illness Narrative 05-22-2022 Do Mireles - 05/22/2022 3:34 PM EDT Note Date & Type Note Facility 05-22-2022 History of Presen t illness Narrative Lisa Ferreira is identified through a medication adherence outreach initiative based on pharmacy claims data from [employer] (insurer) for Non-insulin DM medication(s). Patient is reviewed 05/22/22 due to medication adherence concerns with the following medications (name, strength, sig): metformin 500 mg tablets - 1 tablet by mouth twice daily. Per data/report, last fill date and days supply: metformin 500 mg tablets - 1 tablet by mouth ONCE daily 90 d/s filled on 05/03/22 Outcome of review/outreach: (choose outcome source and status) - Medication changed or discontinued per out of network report Do Mireles PharmD candidate 2022 Associated attestation - Khloe Smith RPh - 05/27/2022 11:47 AM EDT Approving student documentation and outreach below. Khloe Smith RPh PharmLisa BCPS documented in this encounter [facility] Clinical Note 05-22-2022 Note Date & Type Note Facility 05-22-2022 Note Patient Outreach ([facility]) LISA FERREIRA ([id number]) 1950 F Date Time Provider Department 05/22/22 KHLOE SMITH During your visit today, we recorded the following information about you: Do Mireles 05/22/2022 3:36 PM Attested Attestation signed by Khloe Smith RPh at 05/27/2022 11:47 AM Approving student documentation and outreach below. Khloe Smith RPh PharmD BCPS Lisa Ferreira is identified through a medication adherence outreach initiative based on pharmacy claims data from [employer] (insurer) for Non-insulin DM medication(s). Patient is reviewed 05/22/22 due to medication adherence concerns with the following medications (name, strength, sig): metformin 500 mg tablets - 1 tablet by mouth twice daily. Per data/report, last fill date and days supply: metformin 500 mg tablets - 1 tablet by mouth ONCE daily 90 d/s filled on 05/03/22 Outcome of review/outreach: (choose outcome source and status) - Medication changed or discontinued per out of network report Do Mireles PharmD candidate 2023 Allergies As of Date: 05/22/2022 Noted Allergy Reaction ANTIHISTAMINES - ALKYLAMINE 03/02/2007 14 - Other: See Comments Comments: Pounding headache Date Reviewed: 04/16/2017 Reviewed by: Alycia Yuan - Fully Assessed Reason for Visit: Allied Health Visit [5] Cmt: Medication adherence outreach Prescriptions as of 05/27/2022 - acetaminophen (TYLENOL) 500 mg tablet Take 2 tablets by mouth every 8 hours. Problem List As Of Date 05/22/2022 Noted Resolved OA (osteoarthritis) of knee [M17.9] 06/03/2014 Osteoarthrosis, unspecified whether generalized*06/13/2014 06/13/2014 Encounter Status:Closed by KHLOE SMITH on 05/27/22 [facility] History of Past illness Narrative 06-13-2014 Note Date & Type Note Facility documented as of this encounter (statuses as of 05/27/2022) [facility] Summary Purpose Family History No Family History Records FoundNo Family History Records FoundNo Family History Records Found Advance Directives No Advanced Directives Records FoundNo Advanced Directives Records FoundNo Advanced Directives Records Found Additional Source Comments INFORMATION SOURCE (unrecogn ized section and content) DATE CREATED AUTHOR AUTHOR'S ORGANIZ ATION 08/15/2017 [facility] DATE CREATED AUTHOR AUTHOR'S ORGANIZ ATION 05/27/2022 [facility] Source Comments (unrecognize d section and content) In the event this informatio n is protected by the Federal Confidentiality of Alcohol and Drug Abuse Patient Records regulations: The Federal rules restrict any use of the information to criminally investigate or prosecute any alcohol or drug abuse patient.[facility] Reason for Visit (unrecogniz ed section and content) Care Teams (unrecognized sec tion and content) FOR RECORDS PERTAINING TO PATIENTS WHO ARE OR HAVE BEEN ENROLLED IN A CHEMICAL DEPENDENCY/SUBSTANCEABUSE PROGRAM, SOME INFORMATION MAY BE OMITTED. This clinical summary was aggregated from multiple sources. Caution should be exercised in using it in the provision of clinical care. This summary normalizes information from multiple sources, and as a consequence, information in this document may materially change the coding, format and clinical context of patient data. In addition, data may be omitted in some cases. CLINICAL DECISIONS SHOULD BE BASED ON THE PRIMARY CLINICAL RECORDS. [facility]. provides no warranty or guarantee of the accuracy or completeness of information in this document.
[2023-03-07 22:23] VITALS: BP 120/63
--- NOTE | 2023-03-07 22:24 | RAD_ITS ---
INDICATION: chest pain EXAMINATION/TECHNIQUE: X-RAY - XR Chest 1 View COMPARISON 74: Chest x-ray January 29, 2023. FINDINGS: LINES/DEVICES: Right-sided tunneled chest port with the tip in the right atrium, unchanged. LUNGS: Symmetric normal lung volumes. No airspace opacity or abnormal interstitial pattern. No nodule or mass. No pleural effusion or pneumothorax. MEDIASTINUM AND CARDIOVASCULAR STRUCTURES: Normal size and contour of the cardiomediastinal silhouette. No evidence of pulmonary vascular congestion. BONES AND SOFT TISSUES: No fracture or focal osseous lesion. Surgical clips right axilla. Poorly visualized right breast shadow suggesting prior right mastectomy. RAD/Chest 1 View (Portable) IMPRESSION: 1. No radiographic evidence of acute cardiopulmonary disease. 2. Right tunneled chest port, right axillary clips and likely absent right breast shadow suggesting treatment for breast cancer. Electronically Signed: Rashad Real DO at 23:46 EST ,
--- NOTE | 2023-03-07 22:24 | EKG12_ITS ---
Test Reason : DYSRHYTHMIA Blood Pressure : / mmHG Vent. Rate : 086 BPM Atrial Rate : 086 BPM P-R Int : 176 ms QRS Dur : 076 ms QT Int : 382 ms P-R-T Axes : 056 007 013 degrees QTc Int : 457 ms Normal sinus rhythm Cannot rule out Inferior infarct , age undetermined Abnormal ECG Confirmed by SATYA CRUZ, STANISLAV ([id number]), editor school photograph JOSE SALGADO ([id number]) on 03/10/2023 6:40:18 AM Referred By: Confirmed By:STANISLAV HERNADEZ MD
--- NOTE | 2023-03-07 22:26 | EDS_ITS ---
HPI History of Present Illness Chief Complaint: Weakness Detail of Chief Complaint: Generalized weakness and not feeling well Informant: patient Narrative Narrative: Patient presents to the emergency department complaint of generalized weakness. Patient states that she started not feeling well around 7 PM tonight. She describes some numbness and tingling in both arms and some mild discomfort in her chest and back discomfort. Patient currently undergoing treatment for metastatic breast cancer. Last chemotherapy was 3 days ago. She denies fevers. Her at [place] had a sore throat for 3 days. Patient states she started with diarrhea today and has had frequent episodes this afternoon. She has had no vomiting. Describes some diffuse mild abdominal discomfort as well. Patient denies urinary symptoms. She has no heart history. No recent travel or surgery. [facility] Medical History (Updated 03/08/23 @ 04:22 by Mellisa Washington) Abdominal bloating Acute internal jugular vein thrombosis Anxiety Arthritis Back pain Back problem Blurry vision Breast cancer, right Cancer Chest pain Chronic pain Diabetes Dietary restriction DVT (deep venous thrombosis) Encounter for adjustment or management of vascular access device Encounter for chemotherapy management Encounter for screening for malignant neoplasm of lung in former smoker who quit in past 15 years with 30 pack year history or greater Flu vaccine need GERD (gastroesophageal reflux disease) Headache Health care maintenance Hemorrhoids History of edema History of steroid therapy History of stress test History of tobacco use Hyperglycemia Hyperlipidemia Hypertension IBS (irritable bowel syndrome) Intertriginous dermatitis associated with moisture Invasive ductal carcinoma of right breast Legally blind Low back pain Macular degeneration Macular degeneration Metastasis to liver Neck pain Obesity (BMI 30-39.9) Recurrent breast cancer Restless legs Rheumatoid arthritis Scalp itch Screening for thyroid disorder Type 2 diabetes mellitus Venous insufficiency of both lower extremities Wears dentures Wears hearing aid Home Medications aspirin 81 mg tablet,delayed release 81 mg PO DAILY Heart Health 05/29/18 [History Last Taken 01/27/23] omeprazole magnesium 20 mg tablet,delayed release 20 mg PO DAILY GERD 03/21/20 [History Last Taken 01/29/23] Iris Vision Goggles #1 ea 08/11/20 [Rx Last Taken Unknown] nystatin 100,000 unit/gram topical powder 1 applic topical BID PRN Dermatitis #60 grams 05/08/21 [Rx Last Taken 01/27/23] hydrocodone-acetaminophen 5-325mg 5mg-325mg 1 tab PO Q12H PRN pain 06/26/21 [History Last Taken 01/27/23] biotin 5 mg capsule 5 mg PO DAILY 05/03/22 [History Last Taken 01/27/23] mecobalamin (vitamin B12) 5,000 mcg disintegrating tablet 5,000 mcg PO DAILY 05/03/22 [History Last Taken 01/27/23] latanoprost 0.005 % eye drops 1 drp EACH EYE DAILY 06/24/22 [History Last Taken 01/27/23] alendronate 70 mg tablet 70 mg PO QWEEK #14 tabs 11/27/22 [Rx Last Taken 03/03/23] lancets (Fingerstix Lancets) #100 ea 11/27/22 [Rx Last Taken Unknown] amlodipine 2.5 mg tablet 2.5 mg PO QDAY BP #90 tabs 12/06/22 [Rx Last Taken 01/29/23] potassium chloride 10 mEq tablet,extended release 10 meq PO DAILY 12/31/22 [History Last Taken 01/27/23] Handicap Placard #1 ea 01/07/23 [Rx Last Taken Unknown] Handicap Placard #1 ea 01/07/23 [Rx Last Taken Unknown] tramadol 50 mg tablet 50 mg PO Q6H PRN pain 3 days #12 tabs 01/27/23 [Rx Last Taken Unknown] blood sugar diagnostic (OneTouch Verio test strips) #100 ea 02/06/23 [Rx Last Taken Unknown] blood-glucose meter (OneTouch Verio Flex Meter) #1 ea 02/06/23 [Rx Last Taken Unknown] cholecalciferol (vitamin D3) 125 mcg (5,000 unit) capsule 125 mcg PO DAILY #90 caps 03/03/23 [Rx Last Taken Unknown] escitalopram oxalate 5 mg tablet 5 mg PO QDAY Anxiety #90 tabs 03/03/23 [Rx Last Taken Unknown] furosemide 20 mg tablet 20 mg PO DAILY #90 tabs 03/03/23 [Rx Last Taken Unknown] losartan 100 mg tablet 100 mg PO DAILY BP #90 tabs 03/03/23 [Rx Last Taken Unknown] metformin 500 mg tablet,extended release 24 hr 500 mg PO BID #180 tabs 03/03/23 [Rx Last Taken Unknown] rosuvastatin 10 mg tablet 10 mg PO DAILY #90 tabs 03/03/23 [Rx Last Taken Unknown] Allergy/AdvReac Type Severity Reaction Status Date / Time Antihistamines - Ethanolamine Allergy Severe TACHYCARDIA Verified 03/07/23 22:16 Antihistamines - Allergy Severe TACHYCARDIA Verified 03/07/23 22:16 Ethylenediamine Antihistamines - Piperazine Allergy Severe TACHYCARDIA Verified 03/07/23 22:16 Antihistamines - Piperidine Allergy Severe TACHYCARDIA Verified 03/07/23 22:16 diphenhydramine Allergy Severe TACHYCARDIA Verified 03/07/23 22:16 [From Benadryl] Antihistamines - Alkylamine AdvReac Mild TACHYCARDIA Verified 03/07/23 22:16 Family History Mother Heart disease Diabetes Arthritis Father Heart disease Surgical History H/O section H/O mastectomy History of appendectomy History of cholecystectomy History of lymph node dissection of right axilla History of reconstruction of right breast History of right total mastectomy History of total left knee replacement History of total right knee replacement (TKR) Hx of right knee surgery Social History Smoking Status: Former smoker quit date: 04/04/20 Tobacco: How many years used: 55 Electronic Cigarette Use: not used second hand exposure: Yes quit status: has quit before counseling given: provider counseling alcohol intake: never substance use type: does not use caffeine: Yes what type of physical activity do you participate in: none and walking frequency: does not exercise seatbelt use: always ROS ROS ED Review of Systems ROS Unobtainable: other Constitutional Constitutional ED: Reports lethargy; Denies chills, fever(s), sweats or weight loss Eyes Eyes: Denies blurry vision, change in vision or diplopia ENT ENT ED: Denies rhinorrhea or sore throat Cardiovascular Cardiovascular: Reports chest pain; Denies orthopnea or racing heartbeat Respiratory/Chest Respiratory/Chest: Denies cough, dyspnea, dyspnea on exertion, orthopnea or sputum Gastrointestinal Gastrointestinal: Reports abdominal pain, diarrhea and nausea; Denies vomiting Genitourinary Genitourinary ED: Denies dysuria, hematuria or urinary frequency Musculoskeletal Musculoskeletal: Denies arthralgias, back pain, myalgias or neck pain Integumentary Denies abscess, Abrasions or rash Neurologic Neurologic: Denies headache(s) or weakness Psychiatric Psychiatric: Denies anxiety, depression or suicidal thoughts Endocrine Endocrinology: Denies polydipsia, polyphagia or polyuria Hematologic/Lymphatic Hematologic/Lymphatic: Denies easy bleeding, easy bruising or lymphadenopathy Allergic/Immunologic Allergic/Immunologic ED: Denies mouth swelling, tongue swelling or urticaria EXAM Physical Exam Const Vital Signs: 03/07/23 22:16 03/07/23 22:16 03/07/23 22:23 Temperature 97.9 F Temperature Source Oral Pulse Rate 90 Respiratory Rate 20 H Respiratory Effort Normal Non-Labored Respiratory Pattern Normal Blood Pressure 120/63 Blood Pressure Mean 82 Pulse Ox 95 Oxygen Delivery Method Room Air 03/08/23 03:25 Temperature Temperature Source Pulse Rate 83 Respiratory Rate 20 H Respiratory Effort Respiratory Pattern Blood Pressure 116/68 Blood Pressure Mean 84 Pulse Ox 95 Oxygen Delivery Method Positive well nourished and well developed General Appearance ED: well developed and NAD HEENT Reports TM's clear and moist mucous membranes normocephalic and atraumatic; Negative for trauma or tenderness Tympanic Membrane ED: Yes TM's clear Eyes PERRL and EOMs intact bilaterally General Eye ED: Negative for pale conjunctiva or scleral icterus Neck no lymphadenopathy, supple and no JVD General: Negative for tenderness Chest Wall inspection of chest normal and palpation of chest normal Chest: Negative for tenderness Resp normal respiratory effort and clear to auscultation bilaterally Effort and Inspection: Negative for respiratory distress or pain with movement Auscultation: Negative for rhonchi, wheezes or diminished lung sounds Cardio regular rate, regular rhythm, S1 normal heart sound, S2 normal heart sound and no murmurs Peripheral Pulses: pulses 2+ throughout GI normal to inspection, nondistended, normoactive bowel sounds, soft to palpation, non-distended and no masses GI Narrative: Mild diffuse tenderness. There is no rebound, rigidity, or perineal signs. No mass palpated. Back/Spine no CVA tenderness and no thoracic nor lumbar tenderness Extremity normal to inspection General Extremety ED: Negative for edema General Extremity: Negative for edema Neuro oriented x3, CN's II-XII intact bilaterally, no sensory deficits noted and gait normal Sensorium / Orientation: awake, alert, oriented to person, oriented to place and oriented to time Motor Exam: strength 5/5 throughout and strength abnormal Psych mental status grossly normal Skin no rashes or lesions noted and no wounds MDM MDM MDM Narrative Medical decision making narrative: Presents with diarrhea and not feeling well. She complained of some chest pain and back pain. Recently had chemo 3 days ago. IV line established. She was given normal saline. CBC with differential white count 3.9 with hemoglobin of 11.6 and platelet count of 204. Chemistry is unremarkable. Lactate was slightly elevated 2.1. LFTs will be. Analysis. D-dimer was elevated at 0.78 therefore CTA of the chest was obtained which was negative for PE or dissection. Troponin was normal at 6. EKG obtained on arrival showed sinus rhythm with a rate of 86 bpm. Patient continues to complain of weakness and continues to have watery stool in the department. C. difficile was negative. I did order enteric pathogen's. Lab Data Attestation: I reviewed the patient's lab results. Labs: Laboratory Results - last 24 hr 03/07/23 03/07/23 03/08/23 22:50 23:31 03:22 WBC 3.9 L RBC 3.94 L Hgb 11.6 L Hct 35.7 L MCV 90.6 MCH 29.4 MCHC 32.5 RDW Std Deviation 43.8 RDW Coeff of Awa 13.4 Plt Count 204 MPV 12.0 Neut % (Auto) Not Reportable Absolute Neuts (auto) 2.3 Absolute Lymphs (auto) 0.47 L Total Counted 100 Neutrophils % (Manual) 49 Band Neutrophils % 9 H Lymphocytes % (Manual) 12 L Monocytes % (Manual) 4 Eosinophils % (Manual) 3 Metamyelocytes % 20 H Myelocytes % 3 H Diff Path Review May foll Platelet Estimate ADEQUATE RBC Morphology NORM C+C D-Dimer Quant (PE/DVT) 0.78 H* Sodium 139 Potassium 3.5 Chloride 104 Carbon Dioxide 26.0 Anion Gap 9 BUN 25 H Creatinine 0.76 Estim Creat Clear Calc 51.10 Est GFR (MDRD) Af Amer 96 Est GFR (MDRD) Non-Af 79 BUN/Creatinine Ratio 32.9 H Glucose 162 H Lactic Acid 2.1 H* 0.8 Calcium 8.8 Total Bilirubin 0.50 AST 32 ALT 32 Alkaline Phosphatase 87 Troponin I High Sens 6 Total Protein 6.3 L Albumin 3.1 L Globulin 3.2 Albumin/Globulin Ratio 1.0 Urine Color Yellow Urine Clarity Clear Urine pH 6.0 Ur Specific Terrell 1.015 Urine Protein 15 H Urine Glucose (UA) Normal Urine Ketones Negative Urine Occult Blood Negative Urine Nitrite Negative Urine Bilirubin Negative Urine Urobilinogen Normal Ur Leukocyte Esterase 25 H Urine RBC 0 SEEN Urine WBC 0-5 SEEN Ur Squamous Epith Cells 0-5 SEEN Urine Bacteria 0 SEEN Urine Mucus 0 SEEN POC Glucose 03/08/23 03:46 WBC RBC Hgb Hct MCV MCH MCHC RDW Std Deviation RDW Coeff of Awa Plt Count MPV Neut % (Auto) Absolute Neuts (auto) Absolute Lymphs (auto) Total Counted Neutrophils % (Manual) Band Neutrophils % Lymphocytes % (Manual) Monocytes % (Manual) Eosinophils % (Manual) Metamyelocytes % Myelocytes % Diff Path Review Platelet Estimate RBC Morphology D-Dimer Quant (PE/DVT) Sodium Potassium Chloride Carbon Dioxide Anion Gap BUN Creatinine Estim Creat Clear Calc Est GFR (MDRD) Af Amer Est GFR (MDRD) Non-Af BUN/Creatinine Ratio Glucose Lactic Acid Calcium Total Bilirubin AST ALT Alkaline Phosphatase Troponin I High Sens Total Protein Albumin Globulin Albumin/Globulin Ratio Urine Color Urine Clarity Urine pH Ur Specific Terrell Urine Protein Urine Glucose (UA) Urine Ketones Urine Occult Blood Urine Nitrite Urine Bilirubin Urine Urobilinogen Ur Leukocyte Esterase Urine RBC Urine WBC Ur Squamous Epith Cells Urine Bacteria Urine Mucus POC Glucose 85 Radiography Diagnostic Testing: Clinical Impression(s) from Imaging Studies Chest X-Ray 03/07/23 22:24 IMPRESSION: 1. No radiographic evidence of acute cardiopulmonary disease. 2. Right tunneled chest port, right axillary clips and likely absent right breast shadow suggesting treatment for breast cancer. Electronically Signed: Rashad Real, at 23:46 EST , Chest CTA 03/08/23 01:14 IMPRESSION: 1. No pulmonary embolism. 2. 1.2 cm nodular mass in the subcutaneous soft tissues of the right anterior chest wall corresponds to the abnormality seen on PET/CT from 01/14/2023. 3. Metastatic liver disease. Electronically Signed: Og Meza, at 2:20 EST , View chest x-ray obtained interpreted by myself as no evidence of infiltrate or pneumothorax or acute disease process. Radiology in agreement. EKG Initial EKG: Attestation: I personally reviewed and interpreted this EKG as follows: Comments: Sinus rhythm with rate of 85 bpm with no acute ST segment changes Discharge Plan Dx/Rx/DC Orders Clinical Impression: Diarrhea, Weakness, Acidosis, lactic Disposition Disposition: Acute Care Hospital [facility] Discharge Date/Time: 03/08/23 04:03
[2023-03-07] MEDS: 0.9% Normal Saline (1000mL) 1,000 ML 150 ML IV (22:52)
[2023-03-07] MEDS: Ondansetron 4 MG/2 ML Vial IV (22:52)
[2023-03-07 23:06] LABS: Hematocrit 35.7 % (37-47); Hemoglobin 11.6 g/dL (12.0-15.0); Mean Corp Hgb Conc 32.5 g/dL (32-36); Mean Corpuscular Hgb 29.4 pg (27.0-32.0); Mean Corpuscular Volume 90.6 fL (81-99); POSITIVE COUNT YES; POSITIVE MORPHOLOGY YES; Platelet Count 204 K/mm3 (150-450); RBC Distribution Width CV 13.4 % (11.6-14.6); RBC Distribution Width SD 43.8 fl (35.1-43.9); Red Blood Count 3.94 M/mm3 (4.2-5.4); White Blood Count 3.9 K/mm3 (4.4-11.0)
[2023-03-07 23:15] LABS: Differential Indicated MANUAL DIFF
[2023-03-07 23:24] LABS: AST(SGOT) 32 U/L (15-37); Alanine Aminotransfer ALT/SGPT 32 U/L (13-56); Albumin, Serum 3.1 g/dL (3.2-5.0); Alkaline Phosphatase 87 U/L (45-117); Anion Gap 9 (5-15); BUN 25 mg/dL (7-18); BUN/Creat Ratio 32.9 RATIO (10-20); Calcium,Total 8.8 mg/dL (8.5-10.1); Chloride 104 mmol/L (98-107); Creatinine, Serum 0.76 mg/dL (0.55-1.02); EST Glomerular Filtration Rate 79 mL/min (>60); Est Glom Filt Rate - Afr Amer 96 mL/min (>60); Globulin 3.2 g/dL (2.2-4.2); Glucose 162 mg/dL (74-106); Potassium 3.5 mmol/L (3.5-5.1); Protein, Total 6.3 g/dL (6.4-8.2); Sodium Level 139 mmol/L (136-145); Troponin-I HS 6 pg/mL (3.0-54.0)
[2023-03-07 23:31] LABS: Lactic Acid 2.1 mmol/L (0.4-1.9)
[2023-03-07 23:38] LABS: Bacteria 0 SEEN /hpf (None Seen); Mucous, Urine 0 SEEN /hpf (<or=2+); Red Blood Cells-Urine 0 SEEN /hpf (0-5)
[2023-03-07 23:39] LABS: Color, Urine Yellow (Yellow); Glucose, Dipstick Normal (Normal); Ketone-Dipstick Negative (Negative); Leukocyte Esterase-Dipstick 25 /ul (Negative); Nitrite-Dipstick Negative (Negative); Occult Blood-Urine Negative /ul (Negative); Protein-Dipstick 15 mg/dl (Negative); Specific Gravity, Urine 1.015 (1.002-1.030); Urine Bilirubin Dipstick Negative (Negative); Urine Clarity Clear (Clear); Urine Urobilinogen Normal (Normal)
[2023-03-07 23:40] LABS: D-Dimer Quantitative (DVT/PE) 0.78 FEU/ug/m (0.27-0.49)
[2023-03-07 23:57] LABS: Squamous Epithelial Cells - UA 0-5 SEEN /hpf (5-10); White Blood Cells 0-5 SEEN /hpf (0-5)
[2023-03-08] VITALS (7 sets, daily range): BP systolic 92–129; BP diastolic 46–68; PULSE 75–83; RESP 16–20; TEMP 36.4–37.2; O2SAT 94–98; BMI 27.1
[2023-03-08 00:47] LABS: Eosinophil 3 % (0-5); Lymphocyte 12 % (19-41); Metamyelocyte 20 % (0-1); Monocyte 4 % (0-10); Myelocyte 3 % (0-0); Neutrophil-Band 9 % (0-5); Neutrophil-Segmented 49 % (47-70); Total Cells Counted 100 (MANUAL DIFF)
[2023-03-08 00:49] LABS: Absolute Lymphocyte Count 0.47 X10^3/uL (0.83-4.51); Absolute Neutrophil Count 2.3 X10^3/uL (2.0-7.7); Lymphocyte # 0.47 X10^3/ul (0.83-4.51); Neutrophil # 2.25 X10^3/uL (2.7-7.7); Platelet Estimate ADEQUATE (ADEQ)
[2023-03-08 00:50] LABS: Red Cell Morphology NORM C+C NORMAL (NORM C&C)
--- NOTE | 2023-03-08 01:14 | CT_ITS ---
INDICATION: chest pain, elevated d-dimer EXAMINATION: CT CHEST WITH CONTRAST - CTA Chest WO/W Contrast Injection TECHNIQUE: Helically acquired images were obtained of the chest following IV contrast timed in the pulmonary arterial phase with sagittal and coronal reconstructed images. Post-processing of the angiographic images was performed with multiplanar reformation and 3D reconstruction. Individualized dose optimization techniques were used for this CT. IV contrast dosage and agent: 75 mL of [id number]-[id number]. COMPARISON: 06/25/2022 CT. FINDINGS: LUNGS, PLEURA AND LARGE AIRWAYS: No consolidation or edema. No pulmonary nodule. No pleural effusion. No pneumothorax. THYROID: Unremarkable. HEART AND PERICARDIUM: Coronary artery calcifications are present. No pericardial effusion. No evidence of right heart strain. Right ventricle to left ventricle ratio measures less than 1. MEDIASTINUM AND RICARDO: No mediastinal or hilar adenopathy. Esophagus is unremarkable. No hiatal hernia. VESSELS: No pulmonary embolism. No thoracic aortic aneurysm. UPPER ABDOMEN: Low-density liver lesions consistent with metastatic liver disease, as seen on contrast enhanced CT from 01/27/2023. Low-density lesion within the spleen, better visualized on contrast enhanced CT from 01/27/2023. BONES: No acute abnormality. 1.2 x 0.8 cm nodular density in the subcutaneous soft tissues of the right anterior chest wall. Status post right mastectomy and right axillary lymph node dissection. CT/CTA Chest W/WO Contrast IMPRESSION: 1. No pulmonary embolism. 2. 1.2 cm nodular mass in the subcutaneous soft tissues of the right anterior chest wall corresponds to the abnormality seen on PET/CT from 01/14/2023. 3. Metastatic liver disease. Electronically Signed: Og Meza DO at 2:20 EST ,
[2023-03-08 03:02] LABS: Reflex Lactate? Y
--- NOTE | 2023-03-08 03:02 | HP.PCM.HOS_ITS ---
HPI - General General Date of Admission: 03/08/23 Date of Service: 03/08/23 Chief Complaint: weakness HPI Narrative LUIS F FERREIRA, is a 73 F with a PMH as outlined which includes metastatic breast cancer for which she is on chemotherapy who presents via the ED on 03/08/2023 with a complaitn of generalised weakness. She last had chemotherapy 3 days prior to admission. She started not feeling well on the day of admission, with associated diarrhea, generalised weakness and abdominal pain. She denied any fever, chills though she did admit some chest pain. She hadnt recently been on any antibiotics. Review of systems is otherwise negative. Vitals in the ED were temp of 97.9F, BP of 120/63, OK of 90, RR of 20 and she was saturating at 95% on room air. CBC showed Hb of 11.6, wbc of 3.9, platelets of 204. D dimer was 0.78. Chemistry showed sodium of 139, potassium of 3.5 and bicarb of 26. Lactic acid was 2.1. CTA chest was negative for any evidence of PE. Urinalysis showed no evidence of UTI and C diff test was negative. She is b eing admitted to be managed for general weakness and debility due to metastatic breast cancer with recent chemotherapy. [facility] Medical History (Updated 03/08/23 @ 03:[address] Radha Jensen DO) Abdominal bloating Acute internal jugular vein thrombosis Anxiety Arthritis Back pain Back problem Blurry vision Breast cancer, right Chest pain Dietary restriction DVT (deep venous thrombosis) Encounter for adjustment or management of vascular access device Encounter for chemotherapy management Encounter for screening for malignant neoplasm of lung in former smoker who quit in past 15 years with 30 pack year history or greater Flu vaccine need GERD (gastroesophageal reflux disease) Headache Health care maintenance Hemorrhoids History of edema History of steroid therapy History of stress test History of tobacco use Hyperglycemia Hyperlipidemia Hypertension IBS (irritable bowel syndrome) Intertriginous dermatitis associated with moisture Invasive ductal carcinoma of right breast Legally blind Low back pain Macular degeneration Macular degeneration Metastasis to liver Neck pain Obesity (BMI 30-39.9) Recurrent breast cancer Restless legs Rheumatoid arthritis Scalp itch Screening for thyroid disorder Type 2 diabetes mellitus Venous insufficiency of both lower extremities Wears dentures Wears hearing aid Home Medications aspirin 81 mg tablet,delayed release 81 mg PO DAILY [facility] 05/29/18 [History Last Taken 01/27/23] omeprazole magnesium 20 mg tablet,delayed release 20 mg PO DAILY GERD 03/21/20 [History Last Taken 01/29/23] Iris Vision Goggles #1 ea 08/11/20 [Rx Last Taken Unknown] nystatin 100,000 unit/gram topical powder 1 applic topical BID PRN Dermatitis #60 grams 05/08/21 [Rx Last Taken 01/27/23] hydrocodone-acetaminophen 5-325mg 5mg-325mg 1 tab PO Q12H PRN pain 06/26/21 [History Last Taken 01/27/23] biotin 5 mg capsule 5 mg PO DAILY 05/03/22 [History Last Taken 01/27/23] mecobalamin (vitamin B12) 5,000 mcg disintegrating tablet 2,500 mcg PO DAILY 05/03/22 [History Last Taken 01/27/23] latanoprost 0.005 % eye drops 1 drp EACH EYE DAILY 06/24/22 [History Last Taken 01/27/23] alendronate 70 mg tablet 70 mg PO QWEEK #14 tabs 11/27/22 [Rx Last Taken Unknown] lancets (Fingerstix Lancets) #100 ea 11/27/22 [Rx Last Taken Unknown] amlodipine 2.5 mg tablet 2.5 mg PO QDAY BP #90 tabs 12/06/22 [Rx Last Taken 01/29/23] potassium chloride 10 mEq tablet,extended release 10 meq PO DAILY 12/31/22 [History Last Taken 01/27/23] Handicap Placard #1 ea 01/07/23 [Rx Last Taken Unknown] Handicap Placard #1 ea 01/07/23 [Rx Last Taken Unknown] tramadol 50 mg tablet 50 mg PO Q6H PRN pain 3 days #12 tabs 01/27/23 [Rx Last Taken Unknown] blood sugar diagnostic (OneTouch Verio test strips) #100 ea 02/06/23 [Rx Last Taken Unknown] blood-glucose meter (OneTouch Verio Flex Meter) #1 ea 02/06/23 [Rx Last Taken Unknown] cholecalciferol (vitamin D3) 125 mcg (5,000 unit) capsule 125 mcg PO DAILY #90 caps 03/03/23 [Rx Last Taken Unknown] escitalopram oxalate 5 mg tablet 5 mg PO QDAY Anxiety #90 tabs 03/03/23 [Rx Last Taken Unknown] furosemide 20 mg tablet 20 mg PO DAILY #90 tabs 03/03/23 [Rx Last Taken Unknown] losartan 100 mg tablet 100 mg PO DAILY BP #90 tabs 03/03/23 [Rx Last Taken Unknown] metformin 500 mg tablet,extended release 24 hr 500 mg PO BID #180 tabs 03/03/23 [Rx Last Taken Unknown] rosuvastatin 10 mg tablet 10 mg PO DAILY #90 tabs 03/03/23 [Rx Last Taken Unkn own] Allergy/AdvReac Type Severity Reaction Status Date / Time Antihistamines - Ethanolamine Allergy Severe TACHYCARDIA Verified 03/07/23 22:16 Antihistamines - Allergy Severe TACHYCARDIA Verified 03/07/23 22:16 Ethylenediamine Antihistamines - Piperazine Allergy Severe TACHYCARDIA Verified 03/07/23 22:16 Antihistamines - Piperidine Allergy Severe TACHYCARDIA Verified 03/07/23 22:16 diphenhydramine Allergy Severe TACHYCARDIA Verified 03/07/23 22:16 [From Benadryl] Antihistamines - Alkylamine AdvReac Mild TACHYCARDIA Verified 03/07/23 22:16 Family History Mother Heart disease Diabetes Arthritis Father Heart disease Surgical History H/O section H/O mastectomy History of appendectomy History of cholecystectomy History of lymph node dissection of right axilla History of reconstruction of right breast History of right total mastectomy History of total left knee replacement History of total right knee replacement (TKR) Hx of right knee surgery Social History Smoking Status: Former smoker quit date: 04/04/20 Tobacco: How many years used: 55 Electronic Cigarette Use: not used second hand exposure: Yes quit status: has quit before counseling given: provider counseling alcohol intake: never substance use type: does not use caffeine: Yes what type of physical activity do you participate in: none and walking frequency: does not exercise seatbelt use: always ROS Review of Systems ROS Unobtainable: Denies due to encephalopathy Constitutional Constitutional: Reports fatigue, malaise and weakness; Denies anorexia, change in weight, chills or fever(s) Eyes Eyes: Denies change in vision ENT HEENT: Denies dysphagia, headache(s) or sore throat Cardiovascular Cardiovascular: Denies chest pain, dyspnea on exertion, edema, lightheadedness, orthopnea, palpitations, paroxysmal nocturnal dyspnea, rapid heart rate or syncope Respiratory/Chest Respiratory/Chest: Denies cough, dyspnea, productive cough, shortness of breath at rest or shortness of breath with exertion Gastrointestinal Gastrointestinal: Reports diarrhea, nausea and vomiting; Denies abdominal pain, coffee ground emesis, constipation or dyspepsia Genitourinary Genitourinary: Denies burning urination or dysuria Musculoskeletal Musculoskeletal: Denies arthralgias Neurologic Neurologic: Denies confusion, dizziness, focal weakness, headache(s), numbness, paresthesias or seizure-like activity Psychiatric Psychiatric: Denies anxiety or depression Endocrine Endocrinology: Denies change in body appearance Vital Signs Vital Signs Vital Signs: 03/07/23 22:16 03/07/23 22:16 03/07/23 22:23 Temperature 97.9 F Temperature Source Oral Pulse Rate 90 Respiratory Rate 20 H Respiratory Effort Normal Non-Labored Respiratory Pattern Normal Blood Pressure 120/63 Blood Pressure Mean 82 Pulse Ox 95 Oxygen Delivery Method Room Air Weight Weight: 138 lb 11.085 oz Body Mass Index (BMI) 29.0 Physical Exam Const alert, oriented x3 and no apparent distress General Appearance: cooperative HEENT normocephalic and head/scalp atraumatic HEENT Narrative: dry oral mucosa Mouth: oral and palatal mucosa normal Eyes PERRL, EOMs intact bilaterally and conjunctivae normal Neck supple Resp normal respiratory effort, no retractions and no use of accessory muscles Cardio regular rate, regular rhythm, S1 normal heart sound, S2 normal heart sound and no murmurs GI normal to inspection, nondistended, normoactive bowel sounds, soft to palpation and non-tender Extremity normal to inspection, full ROM and no clubbing, cyanosis or edema Neuro oriented x3, CN's II-XII intact bilaterally, moves all extremities and no focal motor deficits Sensorium / Orientation: awake and alert Motor Exam: strength 5/5 throughout Psych affect normal Results Lab / Micro Data 03/07/23 22:50 03/07/23 22:50 Labs: Laboratory Results - last 24 hr 03/07/23 22:50: WBC 3.9 L, RBC 3.94 L, Hgb 11.6 L, Hct 35.7 L, MCV 90.6, MCH 29. 4, MCHC 32.5, RDW Std Deviation 43.8, RDW Coeff of Awa 13.4, Plt Count 204, MPV 12.0, Neut % (Auto) Not Reportable, Absolute Neuts (auto) 2.3, Absolute Lymphs (auto) 0.47 L, Total Counted 100, Neutrophils % (Manual) 49, Band Neutrophils % 9 H, Lymphocytes % (Manual) 12 L, Monocytes % (Manual) 4, Eosinophils % (Manual) 3, Metamyelocytes % 20 H, Myelocytes % 3 H, Diff Path Review June, Platelet Estimate ADEQUATE, RBC Morphology NORM C+C, D-Dimer Quant (PE/DVT) 0.78 H*, Sodium 139, Potassium 3.5, Chloride 104, Carbon Dioxide 26.0, Anion Gap 9, BUN 25 H, Creatinine 0.76, Estim Creat Clear Calc 51.10, Est GFR (MDRD) Af Amer 96, Est GFR (MDRD) Non-Af 79, BUN/Creatinine Ratio 32.9 H, Glucose 162 H, Lactic Acid 2.1 H*, Calcium 8.8, Total Bilirubin 0.50, AST 32, ALT 32, Alkaline Phosphatase 87, Troponin I High Sens 6, Total Protein 6.3 L, Albumin 3.1 L, Globulin 3.2, Albumin/Globulin Ratio 1.0 03/07/23 23:31: Urine Color Yellow, Urine Clarity Clear, Urine pH 6.0, Ur Specific [place] 1.015, Urine Protein 15 H, Urine Glucose (UA) Normal, Urine Ketones Negative, Urine Occult Blood Negative, Urine Nitrite Negative, Urine Bilirubin Negative, Urine Urobilinogen Normal, Ur Leukocyte Esterase 25 H, Urine RBC 0 SEEN, Urine WBC 0-5 SEEN, Ur Squamous Epith Cells 0-5 SEEN, Urine Bacteria 0 SEEN, Urine Mucus 0 SEEN Micro: Microbiology 03/07/23 23:40 Stool Clostridioides difficile (PCR) - Final 03/07/23 22:57 Mucosa - Nose SARS-CoV-2, Influenza & RSV (PCR) - Final Imagaing Radiology Impression Chest X-Ray 03/07/23 22:24 IMPRESSION: 1. No radiographic evidence of acute cardiopulmonary disease. 2. Right tunneled chest port, right axillary clips and likely absent right breast shadow suggesting treatment for breast cancer. Electronically Signed: Rashad Real, DO at 23:46 EST , Chest CTA 03/08/23 01:14 IMPRESSION: 1. No pulmonary embolism. 2. 1.2 cm nodular mass in the subcutaneous soft tissues of the right anterior chest wall corresponds to the abnormality seen on PET/CT from 01/14/2023. 3. Metastatic liver disease. Electronically Signed: Og Meza, DO at 2:20 EST , Assessment & Plan Assessment/Plan (1) Weakness: (2) Diarrhea: (3) Acidosis, lactic: PLAN: Plan #Debility and weakness in the setting of metastatic breast cancer * admit to med surg * labs are largely unremarkable and stool for CDiff was also negative. * CTA chest showed no evidence of PE and was otherwise unremarkable. * last had chemo three days prior to this admission, so this may be contributing to her symptoms * hydrate gently with iVF * get blood cultures as well * PT/OT consult * fall precautions * #Elevated D dimer: CTA chest negative for PE # Metastatic breast cancer: * Currently undergoing chemotherapy. * says she now has stage IV cancer. Had previously had chemotherapy from December 2017 to March 2017. She was on Arimidex from april 2017 till December 2022 and stopped when she was diagnosed with recurrent disease * She is now on palliative paclitaxel and had the first cycle of palliative chemotherapy on 03/05/2023. * diarrhea, asthenia and myalgia are noted to be common reactions to Paclitaxel and may be the cause of her presenting symptoms. * Follow-up with oncology on outpatient basis. #Hypertension: On amlodipine and losartan. #Diabetes mellitus: on metformin. ISS. Accuchecks ACHS #Hyperlipidemia: on statin. DVT prophylaxis: lovenox Code status: full code * Patient counseled extensively about different types of CODE STATUS including full code, DNR CCA and DNR CCA. Patient elects to be full code. Total [id number] time 17 minutes. * Total time spent on evaluation and management of patient, reviewing chart and specialist notes, discussing plan with patient, discussion with nursing and ancillary staff as well as documentation: 52 mins Charges/Coding Visit Charges Inpatient E&M: 14354 Init Hosp L2 Procedures Hospitalists Procedures: 25639 Advncd Care Plan 30 Min
--- OUTSIDE RECORDS SUMMARY | 2023-03-08 03:23 | XMS RPT_ITS | CCD ---
Author Name Unknown Address [address] [place] [address] Organization [facility] Care Team Providers Care Graphic Arts Technician Name Role Phone Jamar Leon MD Unavailable GIL, ALYCIA Unavailable Unavailable GIL, ALYCIA Unavailable Unavailable [facility] Unavailable Unavailable Weston Tobar MD Primary Care Provider [phone] Allergies Allergy Classification Reported Allergen(s) Allergy Type Date of Onset Reaction(s) Facility (1 source) [facility] ANTIHISTAMINE ALLERGY drug allergy 08-29-19 17 heart beats fast, headache [facility] Work Phone: (3 sources) ANTIHISTAMINES - ALKYLAMINE; Translations: [ANTIHISTAMINES - ALKYLAMINE] Propensity to adverse reactions to drug (disorder) 03-02-19 08 Other: See Comments [facility] Other [place] [facility] Medications Completed/Discontinued Medications Medication Drug Class(es) [...] Facility Start: 05-22-2022 ambulatory Khloe Faggiol i [facility] Work Phone: [facility] Procedures Date [...] Work Phone: Start: 11-30-2015 Colonoscopy Khloe montoya [facility] Work Phone: Plan of Treatment Date Care Activity Detail Author Start: 10-25-2022 Influenza vaccination INFLUENZA (Season Ended) [facility] Start: 02-24-2022 ADVANCE DIRECTIVE DISCUSSION ADVANCE DIRECTIVE DISCUSSION [facility] Start: 02-24-2022 DEPRESSION ASSESSMENT DEPRESSION ASSESSMENT [facility] Start: 09-10-2021 LIPID SCREEN LIPID SCREEN [facility] Start: 11-29-2020 Colonoscopy COLONOSCOPY [facility] Start: 11-29-2020 COLORECTAL CANCER SCREENING COLORECTAL CANCER SCREENING [facility] Start: 06-03-2017 DIABETES SCREEN DIABETES SCREEN [facility] Start: 12-27-2016 End: 12-27-2016 Appointment Appointment [facility] Work Phone: Start: 12-25-2016 End: 12-25-2016 Follow Up Appt Other Follow Up Appt Other [facility] Work Phone: Start: 12-25-2016 End: 12-25-2016 Appointment Appointment [facility] Work Phone: Start: 12-11-2016 End: 12-25-2016 Follow Up Appt 2 weeks Follow Up Appt 2 weeks [facility] Work Phone: Start: 12-06-2016 End: 12-12-2016 Cytp slides c/v mnl scr under phys Pap Smear [facility] Work Phone: Start: 12-06-2016 End: 12-12-2016 Follow Up Appt 3 months Follow Up Appt 3 months [facility] Work Phone: Start: 12-04-2016 End: 12-25-2016 Follow up Appt 1 week Follow up Appt 1 week [facility] Work Phone: Start: 11-28-2016 End: 12-25-2016 Follow up Appt 1 week Follow up Appt 1 week [facility] Work Phone: Start: 11-22-2016 End: 11-22-2016 Oncology Referral Oncology Referral [facility], [address], [place], [address] [facility] Work Phone: Start: 11-01-2016 End: 11-06-2016 Follow Up Appt Other Follow Up Appt Other [facility] Work Phone: Start: 11-01-2016 End: 11-01-2016 Us exam, breast(s) US Breast(s) [facility] Work Phone: Start: 10-18-2016 End: 11-17-2016 *CDIF - Clostridium Diff. Toxin Stool *CDIF - Clostridium Diff. Toxin Stool [facility] Work Phone: Start: 10-18-2016 End: 11-01-2016 Follow Up Appt Other Follow Up Appt Other [facility] Work Phone: Start: 10-11-2016 End: 10-15-2016 Bx breast w/device 1st lesion ultrasound guid Biopsy, breast, with ultrasound guidance [facility] Work Phone: Start: 10-11-2016 End: 10-15-2016 Follow Up Appt Other Follow Up Appt Other [facility] Work Phone: Start: 09-27-2016 End: 09-30-2016 Bx breast w/device 1st lesion ultrasound guid Bx Breast, device placement, US guidance [facility] Work Phone: Start: 09-27-2016 End: 09-30-2016 Follow Up Appt Other Follow Up Appt Other [facility] Work Phone: Start: 09-13-2016 End: 09-16-2016 Follow Up after Imaging/labs Follow Up after Imaging/labs [facility] Work Phone: Start: 09-13-2016 End: 09-13-2016 Mammogram, one breast Mammogram, Diagnositic Unilateral [facility] Work Phone: Start: 09-13-2016 End: 09-13-2016 Us exam, breast(s) US Breast(s) [facility] Work Phone: Start: 08-30-2016 End: 09-10-2016 *CBC with Differential *CBC with Differential [facility] Work Phone: Start: 08-30-2016 End: 09-10-2016 *CMP Complete Metabolic Panel *CMP Complete Metabolic Panel [facility] Work Phone: Start: 08-30-2016 End: 09-10-2016 Follow Up Appt 3 months Follow Up Appt 3 months [facility] Work Phone: Start: 08-30-2016 End: 09-10-2016 Hemoglobin A1c/Hemoglobin.total mass fraction (Bld) *HgA1C [facility] Work Phone: Start: 08-30-2016 End: 09-10-2016 Lipid panel [AGGREGATE] *Lipid Profile [facility] Work Phone: Start: 08-30-2016 End: 09-10-2016 Mammogram, screening Mammogram, Screening, both breasts [facility] Work Phone: Start: 2014 BONE DENSITY BONE DENSITY [facility] Start: 1999 SHINGRIX VACCINE (1 of 2) SHINGRIX VACCINE (1 of 2) [facility] Start: 1994 COLOGUARD (FIT-DNA) COLOGUARD (FIT-DNA) [facility] Start: [address] COLONOGRAPHY [facility] Start: 1994 FECAL OCCULT BLOOD FECAL OCCULT BLOOD [facility] Start: 1994 SIGMOIDOSCOPY SIGMOIDOSCOPY [facility] Start: 1989 Mammography MAMMOGRAM [facility] Start: 02-03-1968 Urine microalbumin profile DTAP,TDAP,TD (1 - Tdap) [facility] Start: 1967 HEPATITIS C SCREENING HEPATITIS C SCREENING [facility] Start: 1955 PNEUMOCOCCAL: 65+ (1 - PCV) PNEUMOCOCCAL: 65+ (1 - PCV) [facility] Start: 1949 COVID-19 VACCINE (#1) COVID-19 VACCINE (#1) [facility] Patient Education Medications [facility] Work Phone: Payers Date Payer Category Payer Medicare MEDICARE MEDICAR E A AND B [id number] 2014-Present [phone] [place] [address] Medicare [id number] Medicare [id number] Social History Date Type Detail Facility Start: 04-16-2017 [facility] History of tobacco use Cigarette Smoker [facility] Start: 04-16-2017 Cigarettes smoked cu rrent (pack per day) - Reported 0.5 [facility] Start: 04-16-2017 Tobacco use and exposure Smoke less tobacco non-user [facility] Start: 04-16-2017 Alcohol intake Current non-dr regional cra of alcohol (finding) [facility] Start: 11-30-2015 [facility] Start: 1950 Sex Assigned At Not on file [facility] Medical Equipment Procedure Code Equipment Code Equipment Origin al Text Equipment Identifier Dates Renny Bn Co Hv 40g m - [id number] Start: 06-13-2014 Bear 4mm Oxfd Ar cm Lt Menis Kn - [id number] Start: 06-13-2014 Progress note 05-22-2022 Note Date & Type Note Facility 05-22-2022 Note HNO ID: [id number] Author: Do Mireles Service: ? Author Type: ? Type: Progress Notes Filed: 05/22/2022 3:36 PM Note Text: Attestation signed by Khloe Smith RPh at 05/27/2022 11:47 AM Approving student documentation and outreach below. Khloe Smith RPh PharmD BCPS Lisa Ferreira is identified through a medication adherence outreach initiative based on pharmacy claims data from [employer] (insurer) for Non-insulin DM medication(s). Patient is [...] network report Do Mireles PharmD candidate 2022 [facility] History of Present illness Narrative 05-22-2022 Do Mireles - 05/22/2022 3:34 PM EDT Note Date & Type Note Facility 05-22-2022 History of Presen t illness Narrative Lisa Ferreira is identified through a medication adherence outreach initiative based on pharmacy claims data from [employer] (insurer) for Non-insulin DM medication(s). Patient is [...] RPh PharmLisa BCPS documented in this encounter [facility] Clinical Note 05-22-2022 Note Date & Type Note Facility 05-22-2022 Note Patient Outreach ([facility]) LISA FERREIRA ([id number]) 1950 F Date Time Provider Department 05/22/22 KHLOE SMITH During your visit today, we recorded the following information about you: Do Mireles 05/22/2022 3:36 PM Attested Attestation signed by Khloe Smith RPh at 05/27/2022 11:47 AM Approving student documentation and outreach below. Khloe Smith RPh PharmD BCPS Lisa Ferreira is identified through a medication adherence outreach initiative based on pharmacy claims data from [employer] (insurer) for Non-insulin DM medication(s). Patient is [...] Encounter Status:Closed by KHLOE SMITH on 05/27/22 [facility] History of Past illness Narrative 06-13-2014 Note Date & Type Note Facility documented as of this encounter (statuses as of 05/27/2022) [facility] Summary Purpose Family History No Family History Records FoundNo Family History Records FoundNo Family History Records Found Advance Directives No Advanced Directives Records FoundNo Advanced Directives Records FoundNo Advanced Directives Records Found Additional Source Comments INFORMATION SOURCE (unrecogn ized section and content) DATE CREATED AUTHOR AUTHOR'S ORGANIZ ATION 08/15/2017 [facility] [employer] DATE CREATED AUTHOR AUTHOR'S ORGANIZ ATION 05/27/2022 [facility] Source Comments (unrecognize d section and content) In the event this informatio n is protected by the Federal Confidentiality of Alcohol and Drug Abuse Patient Records regulations: The Federal rules restrict any use of the information to criminally investigate or prosecute any alcohol or drug abuse patient.[facility] Reason for Visit (unrecogniz ed section [...] BE BASED ON THE PRIMARY CLINICAL RECORDS. [facility] [employer] [facility]. provides no warranty or guarantee of the accuracy or completeness of information in this document.
[2023-03-08 03:56] LABS: Lactic Acid 0.8 mmol/L (0.4-1.9)
--- OUTSIDE RECORDS SUMMARY | 2023-03-08 04:04 | XMS RPT_ITS | CCD ---
Author Name Unknown Address [address] [place] [address] Organization [facility] Care Team Providers Care Cable Splicer Helper Name Role Phone Jamar Leon MD Unavailable GIL, ALYCIA Unavailable Unavailable GIL, ALYCIA Unavailable Unavailable [facility] Unavailable Unavailable Weston Tobar MD Primary Care Provider [phone] Allergies Allergy Classification Reported Allergen(s) Allergy Type Date of Onset Reaction(s) Facility (1 source) [facility] ANTIHISTAMINE ALLERGY drug allergy 08-29-19 17 heart beats fast, headache [facility] Work Phone: (3 sources) ANTIHISTAMINES - ALKYLAMINE; Translations: [ANTIHISTAMINES - ALKYLAMINE] Propensity to adverse reactions to drug (disorder) 03-02-19 08 Other: See Comments [facility] Other [place] [facility] Medications Completed/Discontinued Medications Medication Drug Class(es) [...] Facility Start: 05-22-2022 ambulatory Khloe Faggiol i [facility] Work Phone: Pharm Pop Health Procedures Date [...] Work Phone: Start: 11-30-2015 Colonoscopy Khloe montoya [facility] Work Phone: Plan of Treatment Date Care Activity Detail Author Start: 10-25-2022 Influenza vaccination INFLUENZA (Season Ended) [facility] Start: 02-24-2022 ADVANCE DIRECTIVE DISCUSSION ADVANCE DIRECTIVE DISCUSSION [facility] Start: 02-24-2022 DEPRESSION ASSESSMENT DEPRESSION ASSESSMENT [facility] Start: 09-10-2021 LIPID SCREEN LIPID SCREEN [facility] Start: 11-29-2020 Colonoscopy COLONOSCOPY [facility] Start: 11-29-2020 COLORECTAL CANCER SCREENING COLORECTAL CANCER SCREENING [facility] Start: 06-03-2017 DIABETES SCREEN DIABETES SCREEN [facility] Start: 12-27-2016 End: 12-27-2016 Appointment Appointment [facility] Work Phone: Start: 12-25-2016 End: 12-25-2016 Follow Up Appt Other Follow Up Appt Other [facility] Work Phone: Start: 12-25-2016 End: 12-25-2016 Appointment Appointment [facility] Work Phone: Start: 12-11-2016 End: 12-25-2016 Follow Up Appt 2 weeks Follow Up Appt 2 weeks [facility] Work Phone: Start: 12-06-2016 End: 12-12-2016 Cytp slides c/v mnl scr under phys Pap Smear [facility] Work Phone: Start: 12-06-2016 End: 12-12-2016 Follow Up Appt 3 months Follow Up Appt 3 months [facility] Work Phone: Start: 12-04-2016 End: 12-25-2016 Follow up Appt 1 week Follow up Appt 1 week [facility] Work Phone: Start: 11-28-2016 End: 12-25-2016 Follow up Appt 1 week Follow up Appt 1 week [facility] Work Phone: Start: 11-22-2016 End: 11-22-2016 Oncology Referral Oncology Referral Que Esparza, [address], [place], [address] [facility] Work Phone: Start: 11-01-2016 End: 11-06-2016 Follow Up Appt Other Follow Up Appt Other [facility] Work Phone: Start: 11-01-2016 End: 11-01-2016 Us exam, breast(s) US Breast(s) [facility] Work Phone: Start: 10-18-2016 End: 11-17-2016 *CDIF - Clostridium Diff. Toxin Stool *CDIF - Clostridium Diff. Toxin Stool [facility] Work Phone: Start: 10-18-2016 End: 11-01-2016 Follow Up Appt Other Follow Up Appt Other [facility] Work Phone: Start: 10-11-2016 End: 10-15-2016 Bx breast w/device 1st lesion ultrasound guid Biopsy, breast, with ultrasound guidance [facility] Work Phone: Start: 10-11-2016 End: 10-15-2016 Follow Up Appt Other Follow Up Appt Other [facility] Work Phone: Start: 09-27-2016 End: 09-30-2016 Bx breast w/device 1st lesion ultrasound guid Bx Breast, device placement, US guidance [facility] Work Phone: Start: 09-27-2016 End: 09-30-2016 Follow Up Appt Other Follow Up Appt Other [facility] Work Phone: Start: 09-13-2016 End: 09-16-2016 Follow Up after Imaging/labs Follow Up after Imaging/labs [facility] Work Phone: Start: 09-13-2016 End: 09-13-2016 Mammogram, one breast Mammogram, Diagnositic Unilateral [facility] Work Phone: Start: 09-13-2016 End: 09-13-2016 Us exam, breast(s) US Breast(s) [facility] Work Phone: Start: 08-30-2016 End: 09-10-2016 *CBC with Differential *CBC with Differential [facility] Work Phone: Start: 08-30-2016 End: 09-10-2016 *CMP Complete Metabolic Panel *CMP Complete Metabolic Panel [facility] Work Phone: Start: 08-30-2016 End: 09-10-2016 Follow Up Appt 3 months Follow Up Appt 3 months [facility] Work Phone: Start: 08-30-2016 End: 09-10-2016 Hemoglobin A1c/Hemoglobin.total mass fraction (Bld) *HgA1C [facility] Work Phone: Start: 08-30-2016 End: 09-10-2016 Lipid panel [AGGREGATE] *Lipid Profile [facility] Work Phone: Start: 08-30-2016 End: 09-10-2016 Mammogram, screening Mammogram, Screening, both breasts [facility] Work Phone: Start: 2014 BONE DENSITY BONE DENSITY [facility] Start: 1999 SHINGRIX VACCINE (1 of 2) SHINGRIX VACCINE (1 of 2) [facility] Start: 1994 COLOGUARD (FIT-DNA) COLOGUARD (FIT-DNA) [facility] Start: [address] COLONOGRAPHY [facility] Start: 1994 FECAL OCCULT BLOOD FECAL OCCULT BLOOD [facility] Start: 1994 SIGMOIDOSCOPY SIGMOIDOSCOPY [facility] Start: 1989 Mammography MAMMOGRAM [facility] Start: 02-03-1968 Urine microalbumin profile DTAP,TDAP,TD (1 - Tdap) [facility] Start: 1967 HEPATITIS C SCREENING HEPATITIS C SCREENING [facility] Start: 1955 PNEUMOCOCCAL: 65+ (1 - PCV) PNEUMOCOCCAL: 65+ (1 - PCV) [facility] Start: 1949 COVID-19 VACCINE (#1) COVID-19 VACCINE (#1) [facility] Patient Education Medications [facility] Work Phone: Payers Date Payer Category Payer Medicare MEDICARE MEDICAR E A AND B [id number] 2014-Present [phone] [place] [address] Medicare 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 Author Type: ? Type: Progress Notes Filed: 05/22/2022 3:36 PM Note Text: Attestation signed by Khloe Smith RPh at 05/27/2022 11:47 AM Approving student documentation and outreach below. Khloe Smith RPh PharmD BCPS Lisa Ferreira is identified through a medication adherence outreach initiative based on pharmacy claims data from [employer] (insurer) for Non-insulin DM medication(s). Patient is [...] network report Do Mireles PharmD candidate 2022 [facility] History of Present illness Narrative 05-22-2022 Do Mireles - 05/22/2022 3:34 PM EDT Note Date & Type Note Facility 05-22-2022 History of Presen t illness Narrative Lisa Ferreira is identified through a medication adherence outreach initiative based on pharmacy claims data from [employer] (insurer) for Non-insulin DM medication(s). Patient is [...] RPh PharmLisa BCPS documented in this encounter [facility] Clinical Note 05-22-2022 Note Date & Type Note Facility 05-22-2022 Note Patient Outreach ([facility]) LISA FERREIRA ([id number]) 1950 F Date Time Provider Department 05/22/22 KHLOE SMITH During your visit today, we recorded the following information about you: Do Mireles 05/22/2022 3:36 PM Attested Attestation signed by Khloe Smith RPh at 05/27/2022 11:47 AM Approving student documentation and outreach below. Khloe Smith RPh PharmD BCPS Lisa Ferreira is identified through a medication adherence outreach initiative based on pharmacy claims data from [employer] (insurer) for Non-insulin DM medication(s). Patient is [...] Encounter Status:Closed by KHLOE SMITH on 05/27/22 [facility] History of Past illness Narrative 06-13-2014 Note Date & Type Note Facility documented as of this encounter (statuses as of 05/27/2022) [facility] Summary Purpose Family History No Family History Records FoundNo Family History Records FoundNo Family History Records Found Advance Directives No Advanced Directives Records FoundNo Advanced Directives Records FoundNo Advanced Directives Records Found Additional Source Comments INFORMATION SOURCE (unrecogn ized section and content) DATE CREATED AUTHOR AUTHOR'S ORGANIZ ATION 08/15/2017 [facility] [email or web address] DATE CREATED AUTHOR AUTHOR'S ORGANIZ ATION 05/27/2022 [facility] Source Comments (unrecognize d section and content) In the event this informatio n is protected by the Federal Confidentiality of Alcohol and Drug Abuse Patient Records regulations: The Federal rules restrict any use of the information to criminally investigate or prosecute any alcohol or drug abuse patient.[facility] Reason for Visit (unrecogniz ed section and [...] BE BASED ON THE PRIMARY CLINICAL RECORDS. [facility] provides no warranty or guarantee of the accuracy or completeness of information in this document.
[2023-03-08 04:06] LABS: Bedside Glucose 85 mg/dL (74-106)
[2023-03-08] MEDS: Acetaminophen 325 MG Tablet 650 MG PO ×3 (04:40→23:24)
[2023-03-08] MEDS: oxyCODONE 5 MG Tablet PO (04:41)
[2023-03-08] MEDS: 0.9% Normal Saline (1000mL) 1,000 ML 150 ML IV ×4 (04:41→21:12)
[2023-03-08] MEDS: 0.9% Saline Lock 10 ML Syringe IV (04:41)
[2023-03-08 06:57] LABS: Hematocrit 33.8 % (37-47); Hemoglobin 10.9 g/dL (12.0-15.0); Mean Corp Hgb Conc 32.2 g/dL (32-36); Mean Corpuscular Hgb 29.2 pg (27.0-32.0); Mean Corpuscular Volume 90.6 fL (81-99); Mean Platelet Vol. 11.8 fl (6.2-12.0); POSITIVE COUNT YES; POSITIVE MORPHOLOGY YES; Platelet Count 208 K/mm3 (150-450); RBC Distribution Width CV 13.7 % (11.6-14.6); RBC Distribution Width SD 44.7 fl (35.1-43.9); Red Blood Count 3.73 M/mm3 (4.2-5.4); White Blood Count 4.5 K/mm3 (4.4-11.0)
[2023-03-08 07:07] LABS: Differential Indicated MANUAL DIFF
[2023-03-08 08:05] LABS: Lymphocyte 35 % (19-41); Metamyelocyte 8 % (0-1); Monocyte 1 % (0-10); Neutrophil-Band 12 % (0-5); Neutrophil-Segmented 44 % (47-70); Total Cells Counted 100 (MANUAL DIFF)
[2023-03-08 08:06] LABS: Platelet Estimate ADEQUATE (ADEQ)
[2023-03-08 08:07] LABS: Red Cell Morphology NORM C+C NORMAL (NORM C&C)
[2023-03-08 08:45] LABS: Anion Gap 7 (5-15); BUN 17 mg/dL (7-18); BUN/Creat Ratio 27.6 RATIO (10-20); Calcium,Total 8.1 mg/dL (8.5-10.1); Chloride 109 mmol/L (98-107); Creatinine, Serum 0.62 mg/dL (0.55-1.02); EST Glomerular Filtration Rate 101 mL/min (>60); Est Glom Filt Rate - Afr Amer 122 mL/min (>60); Estimated Creatinine Clearance 49.51 ml/min; Glucose 105 mg/dL (74-106); Potassium 3.5 mmol/L (3.5-5.1); Sodium Level 141 mmol/L (136-145)
[2023-03-08] MEDS: traMADol 50 MG Tablet PO ×3 (08:54→22:48)
[2023-03-08] MEDS: Aspirin E.C. 81 MG Tablet PO (08:54)
[2023-03-08] MEDS: amLODIPine 2.5 MG Tablet PO (08:54)
[2023-03-08] MEDS: Escitalopram Oxalate 10 MG Tablet 5 MG PO (08:54)
[2023-03-08] MEDS: Pantoprazole Sodium 20 MG Tablet PO (08:54)
[2023-03-08] MEDS: Potassium Chloride Oral Tablet 10 MEQ PO (08:55)
[2023-03-08] MEDS: Enoxaparin 40 MG/0.4 ML Syringe SC (08:56)
[2023-03-08] MEDS: Losartan Potassium 100 MG Tablet PO (08:56)
[2023-03-08] MEDS: Ondansetron 4 MG/2 ML Vial IV (09:01)
[2023-03-08 12:30] LABS: Bedside Glucose 148 mg/dL (74-106)
--- NOTE | 2023-03-08 13:23 | PN.HOSP_ITS ---
Reason for Visit Reason for Visit: Diagnoses Acidosis, unspecified (03/08/23) Diarrhea, unspecified (03/08/23) Weakness (03/08/23) Objective Data Objective Data Vital Signs: Vital Signs Temp Pulse Resp BP Pulse Ox O2 Del Method 99 F 79 16 92/48 L 94 Room Air 03/08/23 11:20 03/08/23 11:20 03/08/23 11:20 03/08/23 11:20 03/08/23 11:20 03/08/23 11:20 Oxygen Delivery Method Room Air Weight: 129 lb 11.2 oz Body Mass Index (BMI) 27.1 Intake & Output: Intake and Output for Last 24 Hours 03/06/23 03/07/23 03/08/23 23:59 23:59 23:59 Intake Total 2167.5 / 2167.5 Balance 2167.5 / 2167.5 Lab / Micro Data 03/08/23 06:32 03/08/23 06:32 Labs: Laboratory Results - last 24 hr 03/07/23 22:50: WBC 3.9 L, RBC 3.94 L, Hgb 11.6 L, Hct 35.7 L, MCV 90.6, MCH 29.4, MCHC 32.5, RDW Std Deviation 43.8, RDW Coeff of Awa 13.4, Plt Count 204, MPV 12.0, Neut % (Auto) Not Reportable, Absolute Neuts (auto) 2.3, Absolute Lymphs (auto) 0.47 L, Total Counted 100, Neutrophils % (Manual) 49, Band Neutrophils % 9 H, Lymphocytes % (Manual) 12 L, Monocytes % (Manual) 4, Eosinophils % (Manual) 3, Metamyelocytes % 20 H, Myelocytes % 3 H, Diff Path Review June, Platelet Estimate ADEQUATE, RBC Morphology NORM C+C, D-Dimer Quant (PE/DVT) 0.78 H*, Sodium 139, Potassium 3.5, Chloride 104, Carbon Dioxide 26.0, Anion Gap 9, BUN 25 H, Creatinine 0.76, Estim Creat Clear Calc 51.10, Est GFR (MDRD) Af Amer 96, Est GFR (MDRD) Non-Af 79, BUN/Creatinine Ratio 32.9 H, Glucose 162 H, Lactic Acid 2.1 H*, Calcium 8.8, Total Bilirubin 0.50, AST 32, ALT 32, Alkaline Phosphatase 87, Troponin I High Sens 6, Total Protein 6.3 L, Albumin 3.1 L, Globulin 3.2, Albumin/Globulin Ratio 1.0 03/07/23 23:31: Urine Color Yellow, Urine Clarity Clear, Urine pH 6.0, Ur Specific [place] 1.015, Urine Protein 15 H, Urine Glucose (UA) Normal, Urine Ketones Negative, Urine Occult Blood Negative, Urine Nitrite Negative, Urine Bilirubin Negative, Urine Urobilinogen Normal, Ur Leukocyte Esterase 25 H, Urine RBC 0 SEEN, Urine WBC 0-5 SEEN, Ur Squamous Epith Cells 0-5 SEEN, Urine Bacteria 0 SEEN, Urine Mucus 0 SEEN 03/08/23 03:22: Lactic Acid 0.8 03/08/23 03:46: POC Glucose 85 03/08/23 06:32: WBC 4.5, RBC 3.73 L, Hgb 10.9 L, Hct 33.8 L, MCV 90.6, MCH 29.2, MCHC 32.2, RDW Std Deviation 44.7 H, RDW Coeff of Awa 13.7, Plt Count 208, MPV 11.8, Neut % (Auto) Not Reportable, Total Counted 100, Neutrophils % (Manual) 44 L, Band Neutrophils % 12 H, Lymphocytes % (Manual) 35, Monocytes % (Manual) 1, Metamyelocytes % 8 H, Diff Path Review June, Platelet Estimate ADEQUATE, RBC Morphology NORM C+C, Sodium 141, Potassium 3.5, Chloride 109 H, Carbon Dioxide 25.0, Anion Gap 7, BUN 17, Creatinine 0.62, Estim Creat Clear Calc 49.51, Est GFR (MDRD) Af Amer 122, Est GFR (MDRD) Non-Af 101, BUN/Creatinine Ratio 27.6 H, Glucose 105, Calcium 8.1 L 03/08/23 12:11: POC Glucose 148 H Micro: Microbiology 03/07/23 23:40 Stool Enteric Bacteriology - Final 03/07/23 23:40 Stool Clostridioides difficile (PCR) - Final 03/07/23 22:57 Mucosa - Nose SARS-CoV-2, Influenza & RSV (PCR) - Final Radiography Diagnostic Testing: Radiology Impression Chest X-Ray 03/07/23 22:24 IMPRESSION: 1. No radiographic evidence of acute cardiopulmonary disease. 2. Right tunneled chest port, right axillary clips and likely absent right breast shadow suggesting treatment for breast cancer. Electronically Signed: Rashad Real, DO at 23:46 EST , Chest CTA 03/08/23 01:14 IMPRESSION: 1. No pulmonary embolism. 2. 1.2 cm nodular mass in the subcutaneous soft tissues of the right anterior chest wall corresponds to the abnormality seen on PET/CT from 01/14/2023. 3. Metastatic liver disease. Electronically Signed: Og Meza, DO at 2:20 EST , Physical Exam Narrative Seen and examined. Patient is states that she has invasive ductal cancer of right breast, multifocal stage IIa, ER positive [place] positive HER2/serg not expressed. Status postmastectomy in 2017.. She had 6 years ago and resolved then came back. She follows oncologist Dr. Esparza. She is on chemotherapy. She was admitted with nausea, no vomiting. Abdominal diarrhea 6 times but this started yesterday. Complain of mild abdominal pain. Denies fever. Lab chemotherapy 3 days ago. Patient also stated that she has liver cancer but on imaging it seems patient has diffuse metastatic lesions in the liver. Patient also has osteoporosis on bone scan. On oral bisphosphonate., Ex-smoker quit in early 2020. Physical exam General: Alert, Oriented x3, Cooperative HEENT: Atraumatic, PERRLA, EOMI, Normocephalic Oral: No Gingival or Mucosal Lesions/ Ulcerations Neck: supple, No JVD, Negative Carotid Bruits Chest wall/lungs: Mediport over right chest wall. Air entry diminished in bilateral lung bases. No crepitation/rhonchi Cardiovascular: Regular rate, Regular Rhythm, Normal S1, Normal S2, No murmurs Abdomen: Mild tenderness present over right upper quadrant and right lower chest wall, liver region. Mild distention. Bowel Sounds Present, Soft : No renal angle tenderness. No suprapubic tenderness. Extremities: No edema, Capillary Refill Less than 3 Seconds Skin: No rashes, No breakdown Musculoskeletal: No Tenderness to Palpation of Joints or Extremities Neurological: Cranial nerves II-XII grossly intact, DTR 2+/4. No acute focal neurological deficit. Psych/Mental Status: Flat affect. Assessment & Plan Assessment/Plan (1) Weakness: (2) Diarrhea: (3) Acidosis, lactic: PLAN: Plan The patient admitted with generalized weakness and debility. She had last chemotherapy 3 days ago prior to admission. She has pain over the chest and abdomen mainly right side. Last abdomen CT on 1223 shows multiple hypodensity lesions in the liver suggestive of diffuse metastatic disease along with enlargement of the inferior aspect of right lobe of the liver. 9.2 mm hypodensity in the posterior portion of the spleen possible metastatic lesion too as it does not look like typical cyst #Debility and weakness in the setting of metastatic breast cancer * admit to med surg * labs are largely unremarkable and stool for CDiff was also negative. Enteric bacteriology panel negative. SARS-CoV-2 flu and RSV negative. * CTA chest showed no evidence of PE and was otherwise unremarkable. * IV fluid for dehydration. * PT/OT consult * fall precautions * CBC with differential shows neutrophil 44%, bands 12%, metamyelocytes 8% s uggestive of left shift. Total WBC count was low at 3.9 thousand yesterday but normal today #Elevated D dimer: CTA chest negative for PE # Metastatic breast cancer: * Currently undergoing chemotherapy. * says she now has stage IV cancer. Had previously had chemotherapy from December 2017 to March 2017. She was on Arimidex from april 2017 till December 2022 and stopped when she was diagnosed with recurrent disease * She is now on palliative paclitaxel and had the first cycle of palliative ch emotherapy on 03/05/2023. * diarrhea, asthenia and myalgia are noted to be common reactions to Paclitaxel and may be the cause of her presenting symptoms. * Follow-up with oncology on outpatient basis. * #Hypertension: On amlodipine and losartan. #Diabetes mellitus: on metformin. ISS. Accuchecks ACHS #Hyperlipidemia: on statin. DVT prophylaxis: lovenox Code status: full code * Patient counseled extensively about different types of CODE STATUS including full code, DNR CCA and DNR CCA. Patient elects to be full code. Total [id number]-gd-[id number] time 17 minutes. Microbiology Past 72 Hours 03/07/23 23:40 Stool Enteric Bacteriology - Final 03/07/23 23:40 Stool Clostridioides difficile (PCR) - Final 03/07/23 22:57 Mucosa - Nose SARS-CoV-2, Influenza & RSV (PCR) - Final Laboratory Results 03/07/23 22:50: WBC 3.9 L, RBC 3.94 L, Hgb 11.6 L, Hct 35.7 L, MCV 90.6, MCH 29.4, MCHC 32.5, RDW Std Deviation 43.8, RDW Coeff of Awa 13.4, Plt Count 204, MPV 12.0, Neut % (Auto) Not Reportable, Absolute Neuts (auto) 2.3, Absolute Lymphs (auto) 0.47 L, Total Counted 100, Neutrophils % (Manual) 49, Band Neutrophils % 9 H, Lymphocytes % (Manual) 12 L, Monocytes % (Manual) 4, Eosino phils % (Manual) 3, Metamyelocytes % 20 H, Myelocytes % 3 H, Diff Path Review June, Platelet Estimate ADEQUATE, RBC Morphology NORM C+C, D-Dimer Quant (PE/DVT) 0.78 H*, Sodium 139, Potassium 3.5, Chloride 104, Carbon Dioxide 26.0, Anion Gap 9, BUN 25 H, Creatinine 0.76, Estim Creat Clear Calc 51.10, Est GFR (MDRD) Af Amer 96, Est GFR (MDRD) Non-Af 79, BUN/Creatinine Ratio 32.9 H, Glucose 162 H, Lactic Acid 2.1 H*, Calcium 8.8, Total Bilirubin 0.50, AST 32, ALT 32, Alkaline Phosphatase 87, Troponin I High Sens 6, Total Protein 6.3 L, Albumin 3.1 L, Globulin 3.2, Albumin/Globulin Ratio 1.0 03/07/23 23:31: Urine Color Yellow, Urine Clarity Clear, Urine pH 6.0, Ur Specific [place] 1.015, Urine Protein 15 H, Urine Glucose (UA) Normal, Urine Ketones Negative, Urine Occult Blood Negative, Urine Nitrite Negative, Urine Bilirubin Negative, Urine Urobilinogen Normal, Ur Leukocyte Esterase 25 H, Urine RBC 0 SEEN, Urine WBC 0-5 SEEN, Ur Squamous Epith Cells 0-5 SEEN, Urine Bacteria 0 SEEN, Urine Mucus 0 SEEN 03/08/23 03:22: Lactic Acid 0.8 03/08/23 03:46: POC Glucose 85 03/08/23 06:32: WBC 4.5, RBC 3.73 L, Hgb 10.9 L, Hct 33.8 L, MCV 90.6, MCH 29.2, MCHC 32.2, RDW Std Deviation 44.7 H, RDW Coeff of Awa 13.7, Plt Count 208, MPV 11.8, Neut % (Auto) Not Reportable, Absolute Neuts (auto) 2.5, Absolute Lymphs (auto) 1.60, Total Counted 100, Neutrophils % (Manual) 44 L, Band Neutrophils % 12 H, Lymphocytes % (Manual) 35, Monocytes % (Manual) 1, Metamyelocytes % 8 H, Diff Path Review May , Platelet Estimate ADEQUATE, RBC Morphology NORM C+C, Sodium 141, Potassium 3.5, Chloride 109 H, Carbon Dioxide 25.0, Anion Gap 7, BUN 17, Creatinine 0.62, Estim Creat Clear Calc 49.51, Est GFR (MDRD) Af Amer 122, Est GFR (MDRD) Non-Af 101, BUN/Creatinine Ratio 27.6 H, Glucose 105, Calcium 8.1 L 03/08/23 12:11: POC Glucose 148 H Charges/Coding Visit Charges Inpatient E&M: 46654 Subs Hosp L2
[2023-03-08 14:31] LABS: Absolute Neutrophil Count 2.5 X10^3/uL (2.0-7.7)
[2023-03-08 16:21] LABS: Bedside Glucose 88 mg/dL (74-106)
--- NOTE | 2023-03-08 17:00 | CASEMGMT ---
CLINTON BEE NOTE: CLINTON BEE to room. Introduced self and role. Pt sitting up in bed, eating dinner. Pt states she lives w/her and is independent w/ADL's, IADL's, and manages her own medications. She states her son stays w/her when her goes to work @ night. Discussed discharge planning. Pt states she wishes to discharge home and denies having any concerns w/going home. She has 4 steps to enter her home and states she does okay w/them and does not anticipate any difficulty getting in her home. She has a shower chair that she uses and a cane and walker available, if needed, but she does not use them. She also has a functioning glucometer w/supplies. She declines wanting HHC and denies need for OP therapy. Pt made aware, if she changes her mind once returning home, to discuss this w/her PCP. She voices understanding. She declines any discharge needs. KELLY form explained re: Observation status for treatment of weakness.? Explained hospitalization will be paid per?her insurance policy for Outpatient billing?and condition will continue to be evaluated for Inpt necessity. Also let pt know that [facility] sends paper in the billing packet with their phone number if questions arise. Pt verbalizes understanding and does not have further questions. ?Form signed, copy made and placed in chart, and original given to pt. Plan: Home w/family support and discharge plans in place. Derek ROWELL RN, CM
[2023-03-08] MEDS: Atorvastatin Calcium 20 MG Tablet PO (21:12)
[2023-03-08 21:56] LABS: Bedside Glucose 125 mg/dL (74-106)
[2023-03-08] MEDS: Latanoprost 0.005% 1 Bottle 1 DRP EACH EYE (22:39)
[2023-03-08] MEDS: Morphine 2 MG/ML Syringe 1 MG IV (23:50)
[2023-03-09] MEDS: 0.9% Normal Saline (1000mL) 1,000 ML 150 ML IV ×2 (04:14→10:14)
[2023-03-09 04:31] VITALS: BP 119/62; PULSE 84; RESP 18; TEMP 36.7; O2SAT 93
[2023-03-09] MEDS: traMADol 50 MG Tablet PO ×2 (04:41→16:47)
[2023-03-09 05:38] LABS: Bedside Glucose 79 mg/dL (74-106)
[2023-03-09] MEDS: Morphine 2 MG/ML Syringe 1 MG IV (06:49)
[2023-03-09 08:54] VITALS: BP 132/69; PULSE 84; RESP 18; TEMP 36.8; O2SAT 93
[2023-03-09] MEDS: Aspirin E.C. 81 MG Tablet PO (09:02)
[2023-03-09] MEDS: Pantoprazole Sodium 20 MG Tablet PO (09:02)
[2023-03-09] MEDS: amLODIPine 2.5 MG Tablet PO (09:03)
[2023-03-09] MEDS: Potassium Chloride Oral Tablet 10 MEQ PO (09:03)
[2023-03-09] MEDS: Escitalopram Oxalate 10 MG Tablet 5 MG PO (09:03)
[2023-03-09] MEDS: Enoxaparin 40 MG/0.4 ML Syringe SC (09:03)
[2023-03-09] MEDS: Losartan Potassium 100 MG Tablet PO (09:03)
[2023-03-09] MEDS: Latanoprost 0.005% 1 Bottle 1 DRP EACH EYE (09:04)
[2023-03-09] MEDS: Acetaminophen 325 MG Tablet 650 MG PO (09:05)
[2023-03-09] MEDS: 0.9% Saline Lock 10 ML Syringe IV ×3 (09:28→21:10)
[2023-03-09] MEDS: Potassium Chloride Oral Tablet 20 MEQ 40 MEQ PO (09:28)
[2023-03-09] MEDS: HYDROmorphone 0.5 MG/0.5 ML SYRINGE IV ×2 (09:28→21:11)
[2023-03-09] MEDS: Ondansetron 4 MG/2 ML Vial IV (09:32)
[2023-03-09 11:47] LABS: Bedside Glucose 118 mg/dL (74-106)
--- NOTE | 2023-03-09 13:03 | CT_ITS ---
STUDY: CT Abdomen And Pelvis W/ Contrast Injection 03/09/2023 4:11 PM REASON FOR EXAM: Female, 73 years old. Abdominal pain Abdominal pain and distention. -- With oral and IV contrast both. Individualized dose optimization techniques were used for this CT. COMPARISON: 01.27.23 TECHNIQUE: CT Abdomen And Pelvis W/ Contrast Injection Oral and amp; IV Gastrografin and amp; 100mL [id number] FINDINGS: There are atherosclerotic calcifications of visualized coronary arteries. There are bilateral pleural effusions. Stable diffuse metastatic disease to the liver. There are surgical clips in the gallbladder fossa consistent with a prior cholecystectomy. Stable nonspecific hypodense lesion in the spleen. Normal pancreas. Normal bilateral adrenal glands. No acute findings of the right kidney. No acute findings of the left kidney. Normal visualized stomach. Normal small intestine. Stool throughout the colon. There is non-visualization of the appendix. There are calcifications of the abdominal aorta. This is consistent for atherosclerotic disease. There is NO abdominal aortic aneurysm. Vascular workup can be obtained based on clinical correlation. Normal inferior vena cava. Subcentimeter mesenteric lymph nodes. Urinary bladder wall has wall thickening. This can be related to a partially contractile state. However, a cystitis is not excluded. Urinalysis should be performed in an effort to exclude cystitis. Normal visualized uterus. There is an umbilical hernia containing fat. Old compression deformity of T12. CT/Abdomen/Pelvis WITH Contrast IMPRESSION: (NOT LISTED IN ORDER OF SIGNIFICANCE) Stable diffuse metastatic disease to the liver. There are bilateral pleural effusions. Constipation. Urinary bladder wall has wall thickening. This can be related to a partially contractile state. However, a cystitis is not excluded. Urinalysis should be performed in an effort to exclude cystitis. Other findings as above. Electronically Signed: Isac Quiñones MD at 16:22 EST ,
--- NOTE | 2023-03-09 13:36 | PN.HOSP_ITS ---
Reason for Visit Reason for Visit: Diagnoses Acidosis, unspecified (03/08/23) Diarrhea, unspecified (03/08/23) Weakness (03/08/23) Objective Data Objective Data Vital Signs: Vital Signs Temp Pulse Resp BP Pulse Ox O2 Del Method 98.3 F 84 18 132/69 H 93 Room Air 03/09/23 08:54 03/09/23 08:54 03/09/23 08:54 03/09/23 08:54 03/09/23 08:54 03/09/23 08:54 Oxygen Delivery Method Room Air Weight: 129 lb 11.2 oz Body Mass Index (BMI) 27.1 Intake & Output: Intake and Output for Last 24 Hours 03/07/23 03/08/23 03/09/23 23:59 23:59 23:59 Intake Total 4000.0 / 4000.0 1900 / 1900 Output Total 50 / 50 Balance 3950.0 / 3950.0 1900 / 1900 Lab / Micro Data 03/08/23 06:32 03/08/23 06:32 Labs: Laboratory Results - last 24 hr 03/08/23 06:32: Absolute Neuts (auto) 2.5, Absolute Lymphs (auto) 1.60 03/08/23 16:03: POC Glucose 88 03/08/23 21:10: POC Glucose 125 H 03/09/23 04:35: POC Glucose 79 03/09/23 11:22: POC Glucose 118 H Micro: Microbiology 03/07/23 23:40 Stool Enteric Bacteriology - Final 03/07/23 23:40 Stool Clostridioides difficile (PCR) - Final 03/07/23 22:57 Mucosa - Nose SARS-CoV-2, Influenza & RSV (PCR) - Final Physical Exam Narrative Seen and examined. Patient complains of severe abdominal pain and states 15 out of 10. She could not describe well but seems it is more on the right sided right upper and lower and it goes up to the chest near throat. She states not burning but more stabbing severe and sharp. She has another pain on the back from lumbar spine to cervical spine.Patient also has osteoporosis on bone scan. On oral bisphosp honate. No fever. Physical exam General: Alert, Oriented x3, Cooperative HEENT: Atraumatic, PERRLA, EOMI, Normocephalic Oral: Oral mucosa dry. No Gingival or Mucosal Lesions/ Ulcerations Neck: supple, No JVD, Negative Carotid Bruits Chest wall/lungs: Mediport over right chest wall. Air entry diminished in bilateral lung bases. No crepitation/rhonchi Cardiovascular: Regular rate, Regular Rhythm, Normal S1, Normal S2, No murmurs Abdomen: Diffuse tenderness present but predominantly right-sided. Bowel sounds increased. Mild distention. Soft. No palpable mass. : No renal angle tenderness. No suprapubic tenderness. Extremities: No edema, Capillary Refill Less than 3 Seconds Skin: No rashes, No breakdown Musculoskeletal: No Tenderness to Palpation of Joints or Extremities Neurological: Cranial nerves II-XII grossly intact, DTR 2+/4. No acute focal neurological deficit. Psych/Mental Status: Flat affect. Assessment & Plan Assessment/Plan (1) Weakness: (2) Diarrhea: (3) Acidosis, lactic: PLAN: Plan The patient admitted with generalized weakness and debility. She had last ch emotherapy 3 days ago prior to admission. She has pain over the chest and abdomen mainly right side. She also had diarrhea about 6 times, started 2 days prior to admission. Last abdomen CT on 1223 shows multiple hypodensity lesions in the liver suggestive of diffuse metastatic disease along with enlargement of the inferior aspect of right lobe of the liver. 9.2 mm hypodensity in the posterior portion of the spleen possible metastatic lesion too as it does not look like typical cyst 1. Severe abdominal pain with abdominal distention: Patient nausea vomiting has resolved. She also had diarrhea. Abdomen is tender, CT abdomen and pelvis with oral and IV contrast ordered. Dilaudid given for pain management. Abs ordered. Will keep the patient NPO.Further plan as per the CT scan. #Debility and weakness in the setting of metastatic breast cancer * admit to med surg * labs are largely unremarkable and stool for CDiff was also negative. Enteric bacteriology panel negative. SARS-CoV-2 flu and RSV negative. * CTA chest showed no evidence of PE and was otherwise unremarkable. * IV fluid for dehydration. * PT/OT consult * fall precautions * CBC with differential shows neutrophil 44%, bands 12%, metamyelocytes 8% suggestive of left shift. Total WBC count was low at 3.9 thousand yesterday but normal today #Elevated D dimer: CTA chest negative for PE # Metastatic breast cancer:Patient is states that she has invasive ductal cancer of right breast, multifocal stage IIa, ER positive [place] positive HER2/serg not expressed. Status postmastectomy in 2017. She follows oncologist Dr. Esparza. Patient also stated that she has liver cancer but on imaging it seems patient has diffuse metastatic lesions in the liver. Ex-smoker quit in early 2020. * Currently undergoing chemotherapy. * says she now has stage IV cancer. Had previously had chemotherapy from December 2017 to March 2017. She was on Arimidex from april 2017 till December 2022 and stopped when she was diagnosed with recurrent disease * She is now on palliative paclitaxel and had the first cycle of palliative chemotherapy on 03/05/2023. * diarrhea, asthenia and myalgia are noted to be common reactions to Paclitaxel and may be the cause of her presenting symptoms. * Follow-up with oncology on outpatient basis. * #Hypertension: On amlodipine and losartan. #Diabetes mellitus: on metformin. ISS. Accuchecks ACHS #Hyperlipidemia: on statin. DVT prophylaxis: lovenox Code status: full code * Patient counseled extensively about different types of CODE STATUS including full code, DNR CCA and DNR CCA. Patient elects to be full code. Total [id number] time 17 minutes. Microbiology Past 72 Hours 03/07/23 23:40 Stool Enteric Bacteriology - Final 03/07/23 23:40 Stool Clostridioides difficile (PCR) - Final 03/07/23 22:57 Mucosa - Nose SARS-CoV-2, Influenza & RSV (PCR) - Final Laboratory Results 03/08/23 06:32: Absolute Neuts (auto) 2.5, Absolute Lymphs (auto) 1.60 03/08/23 16:03: POC Glucose 88 03/08/23 21:10: POC Glucose 125 H 03/09/23 04:35: POC Glucose 79 03/09/23 11:22: POC Glucose 118 H Charges/Coding Visit Charges Inpatient E&M: 56197 Subs Hosp L2
[2023-03-09] MEDS: Potassium Chloride 40 MEQ in 0.45% Normal Saline 1,000 ML 75 MEQ IV (13:41)
[2023-03-09 14:36] VITALS: BP 101/54; PULSE 82; RESP 18; TEMP 36.7; O2SAT 96
[2023-03-09 14:42] LABS: Hematocrit 34.4 % (37-47); Hemoglobin 10.6 g/dL (12.0-15.0); Mean Corp Hgb Conc 30.8 g/dL (32-36); Mean Corpuscular Hgb 29.4 pg (27.0-32.0); Mean Corpuscular Volume 95.3 fL (81-99); Mean Platelet Vol. 11.5 fl (6.2-12.0); POSITIVE COUNT YES; POSITIVE MORPHOLOGY YES; Platelet Count 185 K/mm3 (150-450); RBC Distribution Width CV 13.9 % (11.6-14.6); RBC Distribution Width SD 47.7 fl (35.1-43.9); Red Blood Count 3.61 M/mm3 (4.2-5.4); White Blood Count 5.1 K/mm3 (4.4-11.0)
[2023-03-09 14:44] LABS: Differential Indicated MANUAL DIFF
[2023-03-09 15:01] LABS: Eosinophil 2 % (0-5); Lymphocyte 20 % (19-41); Metamyelocyte 1 % (0-1); Monocyte 3 % (0-10); Myelocyte 2 % (0-0); Neutrophil-Band 5 % (0-5); Neutrophil-Segmented 67 % (47-70); Total Cells Counted 100 (MANUAL DIFF)
[2023-03-09 15:02] LABS: Platelet Estimate ADEQUATE (ADEQ); Red Cell Morphology NORM C+C NORMAL (NORM C&C)
[2023-03-09 15:03] LABS: Absolute Neutrophil Count 3.7 X10^3/uL (2.0-7.7)
[2023-03-09 15:04] LABS: Absolute Lymphocyte Count 1.02 X10^3/uL (0.83-4.51)
[2023-03-09 15:29] LABS: AST(SGOT) 60 U/L (15-37); Alanine Aminotransfer ALT/SGPT 67 U/L (13-56); Albumin, Serum 2.7 g/dL (3.2-5.0); Alkaline Phosphatase 131 U/L (45-117); Anion Gap 6 (5-15); BUN 10 mg/dL (7-18); BUN/Creat Ratio 16.4 RATIO (10-20); Calcium,Total 7.8 mg/dL (8.5-10.1); Chloride 111 mmol/L (98-107); Creatinine, Serum 0.61 mg/dL (0.55-1.02); EST Glomerular Filtration Rate 102 mL/min (>60); Est Glom Filt Rate - Afr Amer 123 mL/min (>60); Estimated Creatinine Clearance 49.51 ml/min; Globulin 2.8 g/dL (2.2-4.2); Glucose 158 mg/dL (74-106); Protein, Total 5.5 g/dL (6.4-8.2); Sodium Level 143 mmol/L (136-145)
[2023-03-09 17:14] LABS: Bedside Glucose 110 mg/dL (74-106)
[2023-03-09 21:02] VITALS: BP 116/59; PULSE 90; RESP 18; TEMP 36.8; O2SAT 94
[2023-03-09] MEDS: Atorvastatin Calcium 20 MG Tablet PO (21:08)
[2023-03-09 22:27] LABS: Bedside Glucose 83 mg/dL (74-106)
[2023-03-10 02:45] VITALS: BP 128/49; PULSE 93; RESP 20; TEMP 36.8; O2SAT 95
[2023-03-10] MEDS: traMADol 50 MG Tablet PO ×2 (02:48→22:28)
[2023-03-10] MEDS: Potassium Chloride 40 MEQ in 0.45% Normal Saline 1,000 ML 75 MEQ IV ×2 (02:50→16:09)
[2023-03-10] MEDS: 0.9% Saline Lock 10 ML Syringe IV (06:05)
[2023-03-10] MEDS: HYDROmorphone 0.5 MG/0.5 ML SYRINGE IV ×3 (06:05→17:15)
[2023-03-10 06:35] LABS: Bedside Glucose 80 mg/dL (74-106)
[2023-03-10 06:41] LABS: Absolute Lymphocyte Count 1.23 X10^3/uL (0.83-4.51); Basophil# 0.04 X10^3/uL; Basophil% 0.4 % (0-1); Eosinophil# 0.09 X10^3/uL; Hematocrit 32.9 % (37-47); Hemoglobin 10.4 g/dL (12.0-15.0); Lymphocyte # 1.23 X10^3/ul (0.83-4.51); Lymphocyte % 13.3 % (19-41); Mean Corp Hgb Conc 31.6 g/dL (32-36); Mean Corpuscular Hgb 29.1 pg (27.0-32.0); Mean Corpuscular Volume 92.2 fL (81-99); Mean Platelet Vol. 11.9 fl (6.2-12.0); Monocyte# 0.79 X10^3/uL; Monocyte% 8.6 % (0-10); NRBC Flagged by Analyzer 0 % (0-5); Neutrophil # 6.96 X10^3/uL (2.7-7.7); Neutrophil % 75.4 % (47-70); POSITIVE MORPHOLOGY YES; Platelet Count 198 K/mm3 (150-450); RBC Distribution Width CV 14.2 % (11.6-14.6); RBC Distribution Width SD 47.8 fl (35.1-43.9); Red Blood Count 3.57 M/mm3 (4.2-5.4); White Blood Count 9.2 K/mm3 (4.4-11.0)
[2023-03-10 06:46] LABS: Differential Indicated SCAN CRITERIA MET
[2023-03-10 07:05] LABS: Anion Gap 6 (5-15); BUN 6 mg/dL (7-18); BUN/Creat Ratio 11.7 RATIO (10-20); Calcium,Total 8.2 mg/dL (8.5-10.1); Chloride 109 mmol/L (98-107); Creatinine, Serum 0.51 mg/dL (0.55-1.02); EST Glomerular Filtration Rate 124 mL/min (>60); Est Glom Filt Rate - Afr Amer 150 mL/min (>60); Estimated Creatinine Clearance 49.51 ml/min; Glucose 79 mg/dL (74-106); Potassium 4.1 mmol/L (3.5-5.1); Sodium Level 139 mmol/L (136-145)
[2023-03-10 07:18] LABS: Atypical Lymphocyte 2+ %
[2023-03-10 07:55] VITALS: O2SAT 96
[2023-03-10 08:45] VITALS: BP 118/50; PULSE 89; RESP 16; TEMP 36.6; O2SAT 98
[2023-03-10] MEDS: Escitalopram Oxalate 10 MG Tablet 5 MG PO (08:48)
[2023-03-10] MEDS: Enoxaparin 40 MG/0.4 ML Syringe SC (08:48)
[2023-03-10] MEDS: Latanoprost 0.005% 1 Bottle 1 DRP EACH EYE (08:49)
[2023-03-10] MEDS: Losartan Potassium 100 MG Tablet PO (08:49)
[2023-03-10] MEDS: amLODIPine 2.5 MG Tablet PO (08:49)
[2023-03-10] MEDS: Aspirin E.C. 81 MG Tablet PO (08:49)
[2023-03-10] MEDS: Pantoprazole Sodium 20 MG Tablet PO (08:49)
[2023-03-10] MEDS: Potassium Chloride Oral Tablet 20 MEQ 40 MEQ PO (08:51)
[2023-03-10 10:12] LABS: Pathologist Review Reviewed
[2023-03-10 10:16] LABS: Pathologist Review Reviewed
[2023-03-10 11:57] VITALS: BP 137/68; PULSE 90; RESP 18; TEMP 36.8; O2SAT 94
[2023-03-10 12:21] LABS: Bedside Glucose 89 mg/dL (74-106)
[2023-03-10] MEDS: Ondansetron 4 MG/2 ML Vial IV (12:27)
--- NOTE | 2023-03-10 15:55 | CHAPLAIN ---
Type of Pastoral Visit _x__ Initial Visit ___ Follow-up Visit ___ On-call Visit ___ General Patient Visit ___ Spiritual Assessment ___ Family Conference ___ Bereavement ___ Rapid Response ___ Code Blue ___ Other (describe below) Pastoral Care Referral From _x__ Patient ___ Family ___ Nurse ___ Physician ___ Commercial Sales Consultant ___ Endless Track Vehicle Mechanic ___ Other (describe below) Sacrament/Intervention _x__ Active listening ___ Anointing ___ Roman Catholic ___ Bereavement ___ Communion _x__ Idania exploration ___ _x__ Life review _x__ Prayer ___ Reconciliation ___ Sacrament of Sick _x__ Supportive presence ___ Wedding ___ Other (describe below) Pastoral Comments patient initially speaks of her pain and discloses that she has stage four cancer; explored with patient her feelings, thoughts, and how she is handling this news that is only two months old; pt is clear in her speech that I am a fighter and will fight against this; I am not going to lie down and ; pt has alreaday started her chemo treatments and has concerns about staying on schedule and not getting sick; pt called on the phone at this time; as pt hung up the phone she stated that spouse is overwhelmed, so worried about her, and not handling this very well ; offer of support for the needs of the spouse and gave explanation of the acceptance of this normal reaction ; pt is not connected to a local idania community but used to be Congregational; pt welcomes presence and prayer
[2023-03-10 16:43] LABS: Bedside Glucose 110 mg/dL (74-106)
--- NOTE | 2023-03-10 17:14 | PCM.PN.HOSP ---
Reason for Visit Reason for Visit: Diagnoses Acidosis, unspecified (03/08/23) Diarrhea, unspecified (03/08/23) Weakness (03/08/23) Subjective Subjective Patient still reports right-sided abdominal pain, better than previous but still fairly significant for her. 2 episodes of diarrhea since yesterday which has slowed down. Overall just feels generally unwell, little bit of nausea with no vomiting, denies any urinary symptoms whatsoever Objective Data Objective Data Vital Signs: Vital Signs Temp Pulse Resp BP Pulse Ox O2 Del Method O2 Flow Rate 98.3 F 90 18 137/68 H 94 Room Air 2 03/10/23 11:57 03/10/23 11:57 03/10/23 11:57 03/10/23 11:57 03/10/23 11:57 03/10/23 11:57 03/10/23 08:45 Oxygen Flow Rate (L/min) 2 Oxygen Delivery Method Room Air Weight: 58.831 kg Body Mass Index (BMI) 27.1 Intake & Output: Intake and Output for Last 24 Hours 03/08/23 03/09/23 03/10/23 23:59 23:59 23:59 Intake Total 4000.0 / 4000.0 2555.0 / 2555.0 2301.25 / 2301.25 Output Total 50 / 50 900 / 900 Balance 3950.0 / 3950.0 2555.0 / 2555.0 1401.25 / 1401.25 Lab / Micro Data 03/10/23 05:58 03/10/23 05:58 Labs: Laboratory Results - last 24 hr 03/08/23 06:32: Diff Path Review Reviewed 03/09/23 14:36: Diff Path Review Reviewed 03/09/23 16:43: POC Glucose 110 H 03/09/23 21:07: POC Glucose 83 03/10/23 05:58: WBC 9.2, RBC 3.57 L, Hgb 10.4 L, Hct 32.9 L, MCV 92.2, MCH 29.1, MCHC 31.6 L, RDW Std Deviation 47.8 H, RDW Coeff of Awa 14.2, Plt Count 198, MPV 11.9, Immature Gran % (Auto) 1.300 H, Neut % (Auto) 75.4 H, Lymph % (Auto) 13.3 L, [place] % (Auto) 8.6, Eos % (Auto) 1.0, Baso % (Auto) 0.4, Absolute Neuts (auto) 7.0, Absolute Lymphs (auto) 1.23, Nucleated RBC % 0, Atypical Lymphocytes 2+, Sodium 139, Potassium 4.1, Chloride 109 H, Carbon Dioxide 24.0, Anion Gap 6, BUN 6 L, Creatinine 0.51 L, Estim Creat Clear Calc 49.51, Est GFR (MDRD) Af Amer 150, Est GFR (MDRD) Non-Af 124, BUN/Creatinine Ratio 11.7, Glucose 79, Calcium 8.2 L 03/10/23 06:08: POC Glucose 80 03/10/23 11:47: POC Glucose 89 03/10/23 16:23: POC Glucose 110 H Micro: Microbiology 03/07/23 23:06 Blood Culture (Wb) - Left Hand Blood Culture - Preliminary No growth in 48 hours. 03/07/23 22:50 Blood Culture (Wb) - Port Blood Culture - Preliminary No growth in 48 hours. 03/07/23 23:40 Stool Enteric Bacteriology - Final 03/07/23 23:40 Stool Clostridioides difficile (PCR) - Final 03/07/23 22:57 Mucosa - Nose SARS-CoV-2, Influenza & RSV (PCR) - Final Physical Exam Narrative General: Alert, oriented HEENT: Atraumatic, normocephalic Eyes: Anicteric, normal conjunctiva, extraocular movements grossly intact Neck: Supple Respiratory: Clear to auscultation bilaterally, normal respiratory effort Cardiovascular: Regular rate, systolic ejection murmur GI: Soft, nondistended, tender mostly on right side of abdomen without rebound, guarding, rigidity Extremities: No edema Musculoskeletal: Moving all extremities Neuro: No overt focal neurological deficits Skin: No rashes appreciated Psych: Cooperative Assessment & Plan Assessment/Plan (1) Weakness: (2) Diarrhea: (3) Acidosis, lactic: PLAN: Plan The patient admitted with generalized weakness and debility. She had last chemotherapy 3 days ago prior to admission. She has pain over the chest and abdomen mainly right side. She also had diarrhea about 6 times, started 2 days prior to admission. Last abdomen CT on 1223 shows multiple hypodensity lesions in the liver suggestive of diffuse metastatic disease along with enlargement of the inferior aspect of right lobe of the liver. 9.2 mm hypodensity in the posterior portion of the spleen possible metastatic lesion too as it does not look like typical cyst #Severe abdominal pain with abdominal distention: Patient nausea vomiting has resolved. She also had diarrhea. Abdomen is tender, CT abdomen and pelvis with oral and IV contrast ordered. Dilaudid given for pain management. Abs ordered. Will keep the patient NPO.Further plan as per the CT scan. -03/10: CT abdomen demonstrated stable diffuse metastatic disease to liver and constipation, does not appear to have rectal impaction, diet was resumed, adding Ensure, did report diarrhea was improving and abdominal pain better than yesterday, C. difficile and enteric pathogen's -03/07, will continue to monitor with supportive care and escalate/further investigate pending progress #Debility and weakness in the setting of metastatic breast cancer admit to med surg labs are largely unremarkable and stool for CDiff was also negative. Enteric bacteriology panel negative. SARS-CoV-2 flu and RSV negative. CTA chest showed no evidence of PE and was otherwise unremarkable. IV fluid for dehydration. PT/OT consult fall precautions CBC with differential shows neutrophil 44%, bands 12%, metamyelocytes 8% suggestive of left shift. Total WBC count was low at 3.9 thousand yesterday but normal today -03/10: Continue work with PT/OT, dispo pending progress and safety #Elevated D dimer: CTA chest negative for PE # Metastatic breast cancer:Patient is states that she has invasive ductal cancer of right breast, multifocal stage IIa, ER positive [place] positive HER2/serg not expressed. Status postmastectomy in 2017. She follows oncologist Dr. Esparza. Patient also stated that she has liver cancer but on imaging it seems patient has diffuse metastatic lesions in the liver. Ex-smoker quit in early 2020. Currently undergoing chemotherapy. says she now has stage IV cancer. Had previously had chemotherapy from December 2017 to March 2017. She was on Arimidex from april 2017 till December 2022 and stopped when she was diagnosed with recurrent disease She is now on palliative paclitaxel and had the first cycle of palliative chemotherapy on 03/05/2023. diarrhea, asthenia and myalgia are noted to be common reactions to Paclitaxel and may be the cause of her presenting symptoms. Follow-up with oncology on outpatient basis. #Hypertension: On amlodipine and losartan. #Diabetes mellitus: ISS. Accuchecks ACHS #Hyperlipidemia: on statin. DVT prophylaxis: lovenox Time spent in the patient's overall evaluation,decision-making process, review of diagnostic data, adjustment of management, discussion with other providers, nursing nursing and ancillary staff involved in patient's care documentation, 35 minutes Capacity Legal Chief Knowledge Officer Reflex Medical hold order details:: IF a medical hold is selected below, a suggested order for a MEDICAL HOLD will reflex upon signing the document. Next of kin: [place] law dictates a PRIORITY LIST for identifying legal decision-maker/legal next of kin in the following order (LNOK): 1st: The patient?s legal guardian, if any 2nd: The patient's spouse (if status is questionable, consult Risk Management) 3rd: The patient?s adult child(mckayla) (majority, if multiple children) 4th: The patient?s parents 5th: The patient?s adult siblings (majority, if multiple children siblings) Charges/Coding Visit Charges Inpatient E&M: 88055 Subs Hosp L2
[2023-03-10 20:38] VITALS: BP 129/62; PULSE 87; RESP 16; TEMP 36.8; O2SAT 100
[2023-03-10] MEDS: Atorvastatin Calcium 20 MG Tablet PO (21:40)
[2023-03-10 22:42] LABS: Bedside Glucose 121 mg/dL (74-106)
[2023-03-11] VITALS (7 sets, daily range): BP systolic 111–141; BP diastolic 61–70; PULSE 86–94; RESP 16–18; TEMP 36.5–37.2; O2SAT 92–99
[2023-03-11] MEDS: Potassium Chloride 40 MEQ in 0.45% Normal Saline 1,000 ML 75 MEQ IV ×2 (04:47→17:47)
[2023-03-11] MEDS: traMADol 50 MG Tablet PO ×3 (04:49→17:47)
[2023-03-11 07:01] LABS: Bedside Glucose 85 mg/dL (74-106)
[2023-03-11 08:25] LABS: Hematocrit 32.7 % (37-47); Hemoglobin 10.4 g/dL (12.0-15.0); Mean Corp Hgb Conc 31.8 g/dL (32-36); Mean Corpuscular Hgb 29.3 pg (27.0-32.0); Mean Corpuscular Volume 92.1 fL (81-99); Mean Platelet Vol. 11.5 fl (6.2-12.0); POSITIVE COUNT YES; POSITIVE DIFFERENTIAL YES; POSITIVE MORPHOLOGY YES; Platelet Count 199 K/mm3 (150-450); RBC Distribution Width CV 14.6 % (11.6-14.6); RBC Distribution Width SD 48.7 fl (35.1-43.9); Red Blood Count 3.55 M/mm3 (4.2-5.4); White Blood Count 17.3 K/mm3 (4.4-11.0)
[2023-03-11 08:29] LABS: Differential Indicated MANUAL DIFF
[2023-03-11 08:52] LABS: ALB/GLOB Ratio 0.9 RATIO (0.9-2.4); AST(SGOT) 43 U/L (15-37); Alanine Aminotransfer ALT/SGPT 48 U/L (13-56); Albumin, Serum 2.7 g/dL (3.2-5.0); Alkaline Phosphatase 192 U/L (45-117); Anion Gap 5 (5-15); BUN 4 mg/dL (7-18); BUN/Creat Ratio 7.5 RATIO (10-20); Calcium,Total 8.8 mg/dL (8.5-10.1); Chloride 108 mmol/L (98-107); Creatinine, Serum 0.53 mg/dL (0.55-1.02); EST Glomerular Filtration Rate 120 mL/min (>60); Est Glom Filt Rate - Afr Amer 145 mL/min (>60); Estimated Creatinine Clearance 49.51 ml/min; Globulin 3.1 g/dL (2.2-4.2); Glucose 87 mg/dL (74-106); Potassium 4.5 mmol/L (3.5-5.1); Protein, Total 5.8 g/dL (6.4-8.2); Sodium Level 138 mmol/L (136-145)
[2023-03-11 09:34] LABS: Pathologist Review Reviewed
[2023-03-11] MEDS: Acetaminophen 325 MG Tablet 650 MG PO (09:35)
[2023-03-11] MEDS: Enoxaparin 40 MG/0.4 ML Syringe SC (09:35)
[2023-03-11] MEDS: Pantoprazole Sodium 20 MG Tablet PO (09:36)
[2023-03-11] MEDS: Potassium Chloride Oral Tablet 20 MEQ 40 MEQ PO (09:36)
[2023-03-11] MEDS: Losartan Potassium 100 MG Tablet PO (09:36)
[2023-03-11] MEDS: Escitalopram Oxalate 10 MG Tablet 5 MG PO (09:36)
[2023-03-11] MEDS: Latanoprost 0.005% 1 Bottle 1 DRP EACH EYE (09:36)
[2023-03-11] MEDS: Aspirin E.C. 81 MG Tablet PO (09:36)
[2023-03-11] MEDS: amLODIPine 2.5 MG Tablet PO (09:36)
[2023-03-11 09:41] LABS: Lymphocyte 10 % (19-41); Metamyelocyte 1 % (0-1); Monocyte 6 % (0-10); Myelocyte 3 % (0-0); Neutrophil-Band 6 % (0-5); Neutrophil-Segmented 74 % (47-70); Platelet Estimate ADEQUATE (ADEQ); Total Cells Counted 100 (MANUAL DIFF)
[2023-03-11 09:42] LABS: Absolute Lymphocyte Count 1.73 X10^3/uL (0.83-4.51); Absolute Neutrophil Count 13.8 X10^3/uL (2.0-7.7); Red Cell Morphology NORM C+C NORMAL (NORM C&C)
[2023-03-11] MEDS: Insulin Lispro 100 UNIT/ML INSULN.PEN SC ×3 (11:52→22:14)
[2023-03-11] MEDS: Glucerna Shake 120 ML LIQUID PO (11:53)
[2023-03-11 12:11] LABS: Bedside Glucose 166 mg/dL (74-106)
--- NOTE | 2023-03-11 14:42 | RAD_ITS ---
STUDY: X-RAY - ABDOMEN/PELVIS REASON FOR EXAM: Female, 73 years old. Continued Abd pain TECHNIQUE: Single AP view of the abdomen / pelvis. COMPARISON: None. FINDINGS: Normal visualized lung bases. Oral contrast is seen within the colon. Surgical clips are seen in the right upper quadrant. There are calcified phleboliths in the pelvis. There are degenerative changes of the visualized lumbar spine. RAD/Abdomen Single View (Portable) IMPRESSION: Oral contrast is seen within the colon from prior CT scan. Electronically Signed: Channing Villanueva MD at 15:18 EST ,
[2023-03-11 16:15] LABS: Bedside Glucose 165 mg/dL (74-106)
--- NOTE | 2023-03-11 19:11 | PN.HOSP_ITS ---
Reason for Visit Reason for Visit: Diagnoses Acidosis, unspecified (03/10/23) Diarrhea, unspecified (03/10/23) Weakness (03/10/23) Subjective Subjective Sitting up in chair, still having some abdominal pain complaints Objective Data Objective Data Vital Signs: Vital Signs Temp Pulse Resp BP Pulse Ox O2 Del Method O2 Flow Rate 98.9 F 86 18 111/61 92 Room Air 1 03/11/23 16:15 03/11/23 16:15 03/11/23 16:15 03/11/23 16:15 03/11/23 16:15 03/11/23 16:15 03/11/23 09:06 Oxygen Flow Rate (L/min) 1 Oxygen Delivery Method Room Air Weight: 58.831 kg Body Mass Index (BMI) 27.1 Intake & Output: Intake and Output for Last 24 Hours 03/09/23 03/10/23 03/11/23 23:59 23:59 23:59 Intake Total 2555.0 / 2555.0 2551.25 / 2551.25 1922.5 / 1922.5 Output Total 1400 / 1400 800 / 800 Balance 2555.0 / 2555.0 1151.25 / 1151.25 1122.5 / 1122.5 Lab / Micro Data 03/11/23 07:49 03/11/23 07:49 Labs: Laboratory Results - last 24 hr 03/07/23 22:50: Diff Path Review Reviewed 03/10/23 21:39: POC Glucose 121 H 03/11/23 06:38: POC Glucose 85 03/11/23 07:49: WBC 17.3 H, RBC 3.55 L, Hgb 10.4 L, Hct 32.7 L, MCV 92.1, MCH 29.3, MCHC 31.8 L, RDW Std Deviation 48.7 H, RDW Coeff of Awa 14.6, Plt Count 199, MPV 11.5, Neut % (Auto) Not Reportable, Absolute Neuts (auto) 13.8 H, Absolute Lymphs (auto) 1.73, Total Counted 100, Neutrophils % (Manual) 74 H, Band Neutrophils % 6 H, Lymphocytes % (Manual) 10 L, Monocytes % (Manual) 6, Metamyelocytes % 1, Myelocytes % 3 H, Diff Path Review May foll, Platelet Estimate ADEQUATE, Plt Morphology Comment PRODUCT DEVELOPMENT ASSISTANT, RBC Morphology NORM C+C, Sodium 138, Potassium 4.5, Chloride 108 H, Carbon Dioxide 25.0, Anion Gap 5, BUN 4 L, Creatinine 0.53 L, Estim Creat Clear Calc 49.51, Est GFR (MDRD) Af Amer 145, Est GFR (MDRD) Non-Af 120, BUN/Creatinine Ratio 7.5 L, Glucose 87, Calcium 8.8, Total Bilirubin 0.40, AST 43 H, ALT 48, Alkaline Phosphatase 192 H, Total Protein 5.8 L, Albumin 2.7 L, Globulin 3.1, Albumin/Globulin Ratio 0.9 03/11/23 11:46: POC Glucose 166 H 03/11/23 15:57: POC Glucose 165 H Micro: Microbiology 03/07/23 23:06 Blood Culture (Wb) - Left Hand Blood Culture - Preliminary No growth in 48 hours. 03/07/23 22:50 Blood Culture (Wb) - Port Blood Culture - Preliminary No growth in 48 hours. 03/07/23 23:40 Stool Enteric Bacteriology - Final 03/07/23 23:40 Stool Clostridioides difficile (PCR) - Final 03/07/23 22:57 Mucosa - Nose SARS-CoV-2, Influenza & RSV (PCR) - Final Radiography Diagnostic Testing: Radiology Impression KUB X-Ray 03/11/23 14:42 IMPRESSION: Oral contrast is seen within the colon from prior CT scan. Electronically Signed: Channing Villanueva MD at 15:18 EST Reading Location ID and State: [facility] / [place] , Service support , Physical Exam Narrative General: Alert, oriented HEENT: Atraumatic, normocephalic Eyes: Anicteric, normal conjunctiva, extraocular movements grossly intact Neck: Supple Respiratory: Clear to auscultation bilaterally, normal respiratory effort Cardiovascular: Regular rate, systolic ejection murmur GI: Soft, nondistended, tender mostly on right side of abdomen without rebound, guarding, rigidity Extremities: No edema Musculoskeletal: Moving all extremities Neuro: No overt focal neurological deficits Skin: No rashes appreciated Psych: Cooperative Assessment & Plan Assessment/Plan (1) Weakness: (2) Diarrhea: (3) Acidosis, lactic: PLAN: Plan The patient admitted with generalized weakness and debility. She had last chemotherapy 3 days ago prior to admission. She has pain over the chest and abdomen mainly right side. She also had diarrhea about 6 times, started 2 days prior to admission. Last abdomen CT on 122 shows multiple hypodensity lesions in the liver suggestive of diffuse metastatic disease along with enlargement of the inferior aspect of right lobe of the liver. 9.2 mm hypodensity in the posterior portion of the spleen possible metastatic lesion too as it does not look like typical cyst #Severe abdominal pain with abdominal distention: Patient nausea vomiting has resolved. She also had diarrhea. Abdomen is tender, CT abdomen and pelvis with oral and IV contrast ordered. Dilaudid given for pain management. Abs ordered. Will keep the patient NPO.Further plan as per the CT scan. -03/10: CT abdomen demonstrated stable diffuse metastatic disease to liver and constipation, does not appear to have rectal impaction, diet was resumed, adding Ensure, did report diarrhea was improving and abdominal pain better than yest harmony, C. difficile and enteric pathogen's -03/07, will continue to monitor with supportive care and escalate/further investigate pending progress -03/11: Overall improving but given continued pain KUB obtained, patient still has contrast in colon from previous CT scan and given the CT also reported c onstipation suspect that this is a large cause or contributor, patient also now feeling constipated, will start psyllium and MiraLAX and reassess for progress. Had significant elevation white blood cell count today but everything else stable, no other signs or symptoms of infection so etiology unclear, will recheck in the a.m and will obtain blood cultures. If still elevated may need further investigation but exam has been overall unchanged from day before and patient with no new complaints, liver and kidney function stable, and vital stable so do not want to start empiric antibiotics at this time unless cultures positive or other signs or symptoms of infection #Debility and weakness in the setting of metastatic breast cancer * admit to med surg * labs are largely unremarkable and stool for CDiff was also negative. Enteric bacteriology panel negative. SARS-CoV-2 flu and RSV negative. * CTA chest showed no evidence of PE and was otherwise unremarkable. * IV fluid for dehydration. * PT/OT consult * fall precautions * CBC with differential shows neutrophil 44%, bands 12%, metamyelocytes 8% suggestive of left shift. Total WBC count was low at 3.9 thousand yesterday but normal today -03/10: Continue work with PT/OT, dispo pending progress and safety #Elevated D dimer: CTA chest negative for PE # Metastatic breast cancer:Patient is states that she has invasive ductal cancer of right breast, multifocal stage IIa, ER positive [place] positive HER2/serg not expressed. Status postmastectomy in 2017. She follows oncologist Dr. Esparza. Patient also stated that she has liver cancer but on imaging it seems patient has diffuse metastatic lesions in the liver. Ex-smoker quit in early 2020. * Currently undergoing chemotherapy. * says she now has stage IV cancer. Had previously had chemotherapy from December 2017 to March 2017. She was on Arimidex from april 2017 till December 2022 and stopped when she was diagnosed with recurrent disease * She is now on palliative paclitaxel and had the first cycle of palliative chemotherapy on 03/05/2023. * diarrhea, asthenia and myalgia are noted to be common reactions to Paclitaxel and may be the cause of her presenting symptoms. * Follow-up with oncology on outpatient basis. #Hypertension: On amlodipine and losartan. #Diabetes mellitus: ISS. Accuchecks ACHS #Hyperlipidemia: on statin. DVT prophylaxis: lovenox Time spent in the patient's overall evaluation,decision-making process, review of diagnostic data, adjustment of management, discussion with other providers, nursing nursing and ancillary staff involved in patient's care documentation, 35 minutes Capacity Legal Towel Cabinet Repairer Reflex Medical hold order details:: IF a medical hold is selected below, a suggested order for a MEDICAL HOLD will reflex upon signing the document. Next of kin: [place] law dictates a PRIORITY LIST for identifying legal decision-maker/legal next of kin in the following order (LNOK): 1st: The patient?s legal guardian, if any 2nd: The patient's spouse (if status is questionable, consult Risk Management) 3rd: The patient?s adult child(mckayla) (majority, if multiple children) 4th: The patient?s parents 5th: The patient?s adult siblings (majority, if multiple children siblings) Charges/Coding Visit Charges Inpatient E&M: 82495 Subs Hosp L2
[2023-03-11] MEDS: HYDROmorphone 0.5 MG/0.5 ML SYRINGE IV (19:38)
[2023-03-11] MEDS: Ondansetron 4 MG/2 ML Vial IV (19:38)
[2023-03-11] MEDS: 0.9% Saline Lock 10 ML Syringe IV (19:39)
[2023-03-11] MEDS: 0.9% Normal Saline (1000mL) 1,000 ML 50 ML IV (19:45)
[2023-03-11] MEDS: Polyethylene Glycol 3350 17 GM PACKET PO (19:47)
[2023-03-11] MEDS: Atorvastatin Calcium 20 MG Tablet PO (22:14)
[2023-03-11] MEDS: Psyllium 1 PACKET PO (22:14)
[2023-03-11 22:51] LABS: Bedside Glucose 189 mg/dL (74-106)
[2023-03-12] MEDS: traMADol 50 MG Tablet PO ×4 (00:08→22:58)
[2023-03-12 04:30] VITALS: BP 121/61; PULSE 87; RESP 16; TEMP 36.7; O2SAT 91
[2023-03-12] MEDS: Psyllium 1 PACKET PO ×3 (06:35→22:54)
[2023-03-12 06:54] LABS: Bedside Glucose 101 mg/dL (74-106)
[2023-03-12 08:06] VITALS: O2SAT 95
[2023-03-12 08:09] LABS: Basophil# 0.04 X10^3/uL; Eosinophil# 0.07 X10^3/uL; Hematocrit 32.1 % (37-47); Hemoglobin 10.1 g/dL (12.0-15.0); Mean Corp Hgb Conc 31.5 g/dL (32-36); Mean Corpuscular Hgb 29.1 pg (27.0-32.0); Mean Corpuscular Volume 92.5 fL (81-99); Mean Platelet Vol. 11.7 fl (6.2-12.0); Monocyte# 2.32 X10^3/uL; NRBC Flagged by Analyzer 0.5 % (0-5); POSITIVE COUNT YES; POSITIVE DIFFERENTIAL YES; POSITIVE MORPHOLOGY YES; Platelet Count 190 K/mm3 (150-450); RBC Distribution Width CV 15.4 % (11.6-14.6); RBC Distribution Width SD 50.9 fl (35.1-43.9); Red Blood Count 3.47 M/mm3 (4.2-5.4); White Blood Count 17.7 K/mm3 (4.4-11.0)
[2023-03-12 08:16] VITALS: BP 121/78; PULSE 95; RESP 18; TEMP 37.3; O2SAT 93
[2023-03-12 08:18] LABS: Differential Indicated SCAN CRITERIA MET
[2023-03-12] MEDS: Losartan Potassium 100 MG Tablet PO (08:25)
[2023-03-12] MEDS: Aspirin E.C. 81 MG Tablet PO (08:26)
[2023-03-12] MEDS: Pantoprazole Sodium 20 MG Tablet PO (08:26)
[2023-03-12] MEDS: Escitalopram Oxalate 10 MG Tablet 5 MG PO (08:26)
[2023-03-12] MEDS: amLODIPine 2.5 MG Tablet PO (08:26)
[2023-03-12] MEDS: Potassium Chloride Oral Tablet 20 MEQ 40 MEQ PO (08:27)
[2023-03-12] MEDS: Enoxaparin 40 MG/0.4 ML Syringe SC (08:27)
[2023-03-12] MEDS: Polyethylene Glycol 3350 17 GM PACKET PO ×2 (08:28→22:54)
[2023-03-12 08:30] LABS: ALB/GLOB Ratio 0.8 RATIO (0.9-2.4); AST(SGOT) 40 U/L (15-37); Alanine Aminotransfer ALT/SGPT 41 U/L (13-56); Albumin, Serum 2.7 g/dL (3.2-5.0); Alkaline Phosphatase 196 U/L (45-117); Anion Gap 4 (5-15); BUN 5 mg/dL (7-18); BUN/Creat Ratio 9.5 RATIO (10-20); Chloride 106 mmol/L (98-107); Creatinine, Serum 0.53 mg/dL (0.55-1.02); EST Glomerular Filtration Rate 120 mL/min (>60); Est Glom Filt Rate - Afr Amer 146 mL/min (>60); Estimated Creatinine Clearance 49.51 ml/min; Globulin 3.2 g/dL (2.2-4.2); Glucose 125 mg/dL (74-106); Protein, Total 5.9 g/dL (6.4-8.2); Sodium Level 137 mmol/L (136-145)
[2023-03-12] MEDS: Acetaminophen 325 MG Tablet 650 MG PO (08:30)
--- NOTE | 2023-03-12 08:41 | PN.HOSP_ITS ---
Reason for Visit Reason for Visit: Diagnoses Acidosis, unspecified (03/10/23) Diarrhea, unspecified (03/10/23) Weakness (03/10/23) Subjective Subjective Slightly better than yesterday but still nausea and pain Objective Data Objective Data Vital Signs: Vital Signs Temp Pulse Resp BP Pulse Ox O2 Del Method O2 Flow Rate 99.2 F H 95 18 121/78 H 93 Room Air 2 03/12/23 08:16 03/12/23 08:16 03/12/23 08:16 03/12/23 08:16 03/12/23 08:16 03/12/23 08:16 03/11/23 20:22 Oxygen Flow Rate (L/min) 2 Oxygen Delivery Method Room Air Weight: 58.831 kg Body Mass Index (BMI) 27.1 Intake & Output: Intake and Output for Last 24 Hours 03/10/23 03/11/23 03/12/23 23:59 23:59 23:59 Intake Total 2551.25 / 2551.25 2070.0 / 2070.0 Output Total 1400 / 1400 900 / 900 300 / 300 Balance 1151.25 / 1151.25 1170.0 / 1170.0 -300 / -300 Lab / Micro Data 03/12/23 07:15 03/12/23 07:15 Labs: Laboratory Results - last 24 hr 03/07/23 22:50: Diff Path Review Reviewed 03/11/23 07:49: Absolute Neuts (auto) 13.8 H, Absolute Lymphs (auto) 1.73, Total Counted 100, Neutrophils % (Manual) 74 H, Band Neutrophils % 6 H, Lymphocytes % (Manual) 10 L, Monocytes % (Manual) 6, Metamyelocytes % 1, Myelocytes % 3 H, Diff Path Review May foll, Platelet Estimate ADEQUATE, Plt Morphology Comment CREDIT ADMINISTRATOR, RBC Morphology NORM C+C, Sodium 138, Potassium 4.5, Chloride 108 H, Carbon Dioxide 25.0, Anion Gap 5, BUN 4 L, Creatinine 0.53 L, Estim Creat Clear Calc 49.51, Est GFR (MDRD) Af Amer 145, Est GFR (MDRD) Non-Af 120, BUN/Creatinine Ratio 7.5 L, Glucose 87, Calcium 8.8, Total Bilirubin 0.40, AST 43 H, ALT 48, Alkaline Phosphatase 192 H, Total Protein 5.8 L, Albumin 2.7 L, Globulin 3.1, Albumin/Globulin Ratio 0.9 03/11/23 11:46: POC Glucose 166 H 03/11/23 15:57: POC Glucose 165 H 03/11/23 22:13: POC Glucose 189 H 03/12/23 06:34: POC Glucose 101 03/12/23 07:15: WBC 17.7 H, RBC 3.47 L, Hgb 10.1 L, Hct 32.1 L, MCV 92.5, MCH 29.1, MCHC 31.5 L, RDW Std Deviation 50.9 H, RDW Coeff of Awa 15.4 H, Plt Count 190, MPV 11.7, Immature Gran % (Auto) 11.500 H, Neut % (Auto) 64.6, Lymph % (Auto) 10.2 L, [place] % (Auto) 13.1 H, Eos % (Auto) 0.4, Baso % (Auto) 0.2, Absolute Neuts (auto) 11.4 H, Absolute Lymphs (auto) 1.80, Nucleated RBC % 0.5, Sodium 137, Potassium 4.0, Chloride 106, Carbon Dioxide 27.0, Anion Gap 4 L, BUN 5 L, Creatinine 0.53 L, Estim Creat Clear Calc 49.51, Est GFR (MDRD) Af Amer 146, Est GFR (MDRD) Non-Af 120, BUN/Creatinine Ratio 9.5 L, Glucose 125 H, Calcium 9.0, Total Bilirubin 0.40, AST 40 H, ALT 41, Alkaline Phosphatase 196 H, Total Protein 5.9 L, Albumin 2.7 L, Globulin 3.2, Albumin/Globulin Ratio 0.8 L Micro: Microbiology 03/07/23 23:06 Blood Culture (Wb) - Left Hand Blood Culture - Preliminary No growth in 48 hours. 03/07/23 22:50 Blood Culture (Wb) - Port Blood Culture - Preliminary No growth in 48 hours. 03/07/23 23:40 Stool Enteric Bacteriology - Final 03/07/23 23:40 Stool Clostridioides difficile (PCR) - Final 03/07/23 22:57 Mucosa - Nose SARS-CoV-2, Influenza & RSV (PCR) - Final Radiography Diagnostic Testing: Radiology Impression KUB X-Ray 03/11/23 14:42 IMPRESSION: Oral contrast is seen within the colon from prior CT scan. Electronically Signed: Channing Villanueva MD at 15:18 EST , Physical Exam Narrative General: Alert, oriented HEENT: Atraumatic, normocephalic Eyes: Anicteric, normal conjunctiva, extraocular movements grossly intact Neck: Supple Respiratory: Clear to auscultation bilaterally, normal respiratory effort Cardiovascular: Regular rate, systolic ejection murmur GI: Soft, nondistended, tender mostly on right side of abdomen without rebound, guarding, rigidity Extremities: No edema Musculoskeletal: Moving all extremities Neuro: No overt focal neurological deficits Skin: No rashes appreciated Psych: Cooperative Assessment & Plan Assessment/Plan (1) Weakness: (2) Diarrhea: (3) Acidosis, lactic: PLAN: Plan The patient admitted with generalized weakness and debility. She had last chemotherapy 3 days ago prior to admission. She has pain over the chest and abdomen mainly right side. She also had diarrhea about 6 times, started 2 days prior to admission. Last abdomen CT on 1222 shows multiple hypodensity lesions in the liver suggestive of diffuse metastatic disease along with enlargement of the inferior aspect of right lobe of the liver. 9.2 mm hypodensity in the posterior portion of the spleen possible metastatic lesion too as it does not look like typical cyst #Severe abdominal pain with abdominal distention: Patient nausea vomiting has resolved. She also had diarrhea. Abdomen is tender, CT abdomen and pelvis with oral and IV contrast ordered. Dilaudid given for pain management. Abs ordered. Will keep the patient NPO.Further plan as per the CT scan. -03/10: CT abdomen demonstrated stable diffuse metastatic disease to liver and constipation, does not appear to have rectal impaction, diet was resumed, adding Ensure, did report diarrhea was improving and abdominal pain better than yesterday, C. difficile and enteric pathogen's -03/07, will continue to monitor with supportive care and escalate/further investigate pending progress -03/11: Overall improving but given continued pain KUB obtained, patient still has contrast in colon from previous CT scan and given the CT also reported constipation suspect that this is a large cause or contributor, patient also now feeling constipated, will start psyllium and MiraLAX and reassess for progress. Had significant elevation white blood cell count today but everything else stable, no other signs or symptoms of infection so etiology unclear, will recheck in the a.m and will obtain blood cultures. If still elevated may need further investigation but exam has been overall unchanged from day before and patient with no new complaints, liver and kidney function stable, and vital stable so do not want to start empiric antibiotics at this time unless cultures positive or other signs or symptoms of infection -03/12: Slightly better today, patient does feel constipated, escalating bowel re gimen, supportive care for nausea, food as tolerated. #Leukocytosis -Cultures obtained 03/11/2023 to verify no underlying infection however given everything else within normal limits and no fever patient not started empirically on antibiotics. Discussed with son who said she had a white cell count stimulator given on -Do not think patient has underlying infection but will follow cultures #Debility and weakness in the setting of metastatic breast cancer * admit to med surg * labs are largely unremarkable and stool for CDiff was also negative. Enteric bacteriology panel negative. SARS-CoV-2 flu and RSV negative. * CTA chest showed no evidence of PE and was otherwise unremarkable. * IV fluid for dehydration. * PT/OT consult * fall precautions * CBC with differential shows neutrophil 44%, bands 12%, metamyelocytes 8% suggestive of left shift. Total WBC count was low at 3.9 thousand yesterday but normal today -03/10: Continue work with PT/OT, dispo pending progress and safety -03/12: Continue to encourage ambulation #Elevated D dimer: CTA chest negative for PE # Metastatic breast cancer:Patient is states that she has invasive ductal cancer of right breast, multifocal stage IIa, ER positive IA positive HER2/serg not expressed. Status postmastectomy in 2017. She follows oncologist Dr. Esparza. Patient also stated that she has liver cancer but on imaging it seems patient has diffuse metastatic lesions in the liver. Ex-smoker quit in early 2020. * Currently undergoing chemotherapy. * says she now has stage IV cancer. Had previously had chemotherapy from December 2017 to March 2017. She was on Arimidex from april 2017 till December 2022 and stopped when she was diagnosed with recurrent disease * She is now on palliative paclitaxel and had the first cycle of palliative chemotherapy on 03/05/2023. * diarrhea, asthenia and myalgia are noted to be common reactions to Paclitaxel and may be the cause of her presenting symptoms. * Follow-up with oncology on outpatient basis. #Hypertension: On amlodipine and losartan. #Diabetes mellitus: ISS. Accuchecks ACHS #Hyperlipidemia: on statin. DVT prophylaxis: lovenox Time spent in the patient's overall evaluation,decision-making process, review of diagnostic data, adjustment of management, discussion with other providers, nursing nursing and ancillary staff involved in patient's care documentation, 35 minutes Capacity Legal Topographic Computator Reflex Medical hold order details:: IF a medical hold is selected below, a suggested order for a MEDICAL HOLD will reflex upon signing the document. Next of kin: [place] law dictates a PRIORITY LIST for identifying legal decision-maker/legal next of kin in the following order (LNOK): 1st: The patient?s legal guardian, if any 2nd: The patient's spouse (if status is questionable, consult Risk Management) 3rd: The patient?s adult child(mckayla) (majority, if multiple children) 4th: The patient?s parents 5th: The patient?s adult siblings (majority, if multiple children siblings) Charges/Coding Visit Charges Inpatient E&M: 88189 Subs Hosp L2
[2023-03-12 09:48] LABS: Anisocytosis 1+; Hypochromasia 1+; Lymphocyte 9 % (19-41); Metamyelocyte 9 % (0-1); Monocyte 8 % (0-10); Myelocyte 1 % (0-0); Neutrophil-Band 9 % (0-5); Neutrophil-Segmented 64 % (47-70); Nucleated Red Bld Cells,Manual 2 % (0-5); Platelet Estimate ADEQUATE (ADEQ); Total Cells Counted 100 (MANUAL DIFF)
[2023-03-12 09:49] LABS: Absolute Lymphocyte Count 1.56 X10^3/uL (0.83-4.51); Absolute Neutrophil Count 12.9 X10^3/uL (2.0-7.7); Lymphocyte # 1.59 X10^3/ul (0.83-4.51)
[2023-03-12 11:30] LABS: Bedside Glucose 115 mg/dL (74-106)
[2023-03-12 12:32] LABS: Procalcitonin 0.25 ng/mL (0.00-0.09)
--- NOTE | 2023-03-12 12:57 | CHAPLAIN ---
Type of Pastoral Visit ___ Initial Visit _x__ Follow-up Visit ___ On-call Visit ___ General Patient Visit ___ Spiritual Assessment ___ Family Conference ___ Bereavement ___ Rapid Response ___ Code Blue ___ Other (describe below) Pastoral Care Referral From _x__ Patient ___ Family ___ Nurse ___ Physician ___ Validation Leader ___ Student Success Coach ___ Other (describe below) Sacrament/Intervention _x__ Active listening ___ Anointing ___ Church ___ Bereavement ___ Communion ___ Idania exploration ___ ___ Life review _x__ Prayer ___ Reconciliation ___ Sacrament of Sick _x__ Supportive presence ___ Wedding ___ Other (describe below) Pastoral Comments follow up to this cancer patient; pt says some improvement but still having pain; pt speaks of doing her best through this illness and wanting to stay positive; spouse was in to see her and that helps she acknowledges; pt welcomes the support and the prayers
[2023-03-12 14:21] VITALS: BP 129/67; PULSE 84; RESP 18; TEMP 36.8; O2SAT 93
[2023-03-12] MEDS: Ondansetron 4 MG/2 ML Vial IV (14:27)
[2023-03-12 14:28] LABS: Scan Smear per Review Criteria MANUAL DIFF
[2023-03-12] MEDS: 0.9% Normal Saline (1000mL) 1,000 ML 50 ML IV (14:31)
[2023-03-12] MEDS: Senna/Docusate Sodium 1 Tablet 2 TABLET PO (16:39)
[2023-03-12 16:52] LABS: Bedside Glucose 137 mg/dL (74-106)
[2023-03-12 22:44] LABS: Bedside Glucose 124 mg/dL (74-106)
[2023-03-12] MEDS: Atorvastatin Calcium 20 MG Tablet PO (22:54)
[2023-03-12] MEDS: Latanoprost 0.005% 1 Bottle 1 DRP EACH EYE (22:55)
[2023-03-12] MEDS: Senna/Docusate Sodium 1 Tablet PO (22:58)
[2023-03-12 23:10] VITALS: BP 117/56; PULSE 84; RESP 16; TEMP 37.2; O2SAT 92
[2023-03-13] MEDS: HYDROmorphone 0.5 MG/0.5 ML SYRINGE IV (03:01)
[2023-03-13] MEDS: Ondansetron 4 MG/2 ML Vial IV (03:01)
[2023-03-13] MEDS: Acetaminophen 325 MG Tablet 650 MG PO ×2 (03:06→13:08)
[2023-03-13 03:39] VITALS: BP 121/58; PULSE 90; RESP 16; TEMP 37; O2SAT 92
[2023-03-13] MEDS: traMADol 50 MG Tablet PO (06:45)
[2023-03-13] MEDS: Insulin Lispro 100 UNIT/ML INSULN.PEN SC ×2 (06:47→11:09)
[2023-03-13 07:45] VITALS: BP 109/54; PULSE 72; RESP 18; TEMP 36.3; O2SAT 88; O2SAT 96; O2SAT 97
[2023-03-13 07:53] LABS: Hematocrit 29.8 % (37-47); Hemoglobin 9.5 g/dL (12.0-15.0); Mean Corp Hgb Conc 31.9 g/dL (32-36); Mean Corpuscular Hgb 29.4 pg (27.0-32.0); Mean Corpuscular Volume 92.3 fL (81-99); Mean Platelet Vol. 11.9 fl (6.2-12.0); POSITIVE COUNT YES; POSITIVE DIFFERENTIAL YES; POSITIVE MORPHOLOGY YES; Platelet Count 174 K/mm3 (150-450); RBC Distribution Width CV 15.7 % (11.6-14.6); RBC Distribution Width SD 51.3 fl (35.1-43.9); Red Blood Count 3.23 M/mm3 (4.2-5.4); White Blood Count 20.7 K/mm3 (4.4-11.0)
[2023-03-13] MEDS: Enoxaparin 40 MG/0.4 ML Syringe SC (07:58)
[2023-03-13] MEDS: Aspirin E.C. 81 MG Tablet PO (07:58)
[2023-03-13] MEDS: Losartan Potassium 100 MG Tablet PO (07:58)
[2023-03-13] MEDS: Pantoprazole Sodium 20 MG Tablet PO (07:59)
[2023-03-13] MEDS: amLODIPine 2.5 MG Tablet PO (07:59)
[2023-03-13] MEDS: Polyethylene Glycol 3350 17 GM PACKET PO (07:59)
[2023-03-13] MEDS: Escitalopram Oxalate 10 MG Tablet 5 MG PO (07:59)
[2023-03-13] MEDS: Senna/Docusate Sodium 1 Tablet PO (08:00)
[2023-03-13] MEDS: 0.9% Saline Lock 10 ML Syringe IV ×2 (08:00→16:10)
[2023-03-13] MEDS: Potassium Chloride Oral Tablet 20 MEQ PO (08:03)
[2023-03-13 08:06] LABS: Differential Indicated MANUAL DIFF
[2023-03-13 08:29] LABS: ALB/GLOB Ratio 0.8 RATIO (0.9-2.4); AST(SGOT) 37 U/L (15-37); Alanine Aminotransfer ALT/SGPT 43 U/L (13-56); Albumin, Serum 2.5 g/dL (3.2-5.0); Alkaline Phosphatase 199 U/L (45-117); Anion Gap 4 (5-15); BUN 5 mg/dL (7-18); BUN/Creat Ratio 7.7 RATIO (10-20); Chloride 107 mmol/L (98-107); Creatinine, Serum 0.65 mg/dL (0.55-1.02); EST Glomerular Filtration Rate 95 mL/min (>60); Est Glom Filt Rate - Afr Amer 115 mL/min (>60); Estimated Creatinine Clearance 49.51 ml/min; Globulin 3.2 g/dL (2.2-4.2); Glucose 142 mg/dL (74-106); Potassium 3.8 mmol/L (3.5-5.1); Protein, Total 5.7 g/dL (6.4-8.2); Sodium Level 139 mmol/L (136-145)
[2023-03-13 08:31] VITALS: O2SAT 95
[2023-03-13 08:39] LABS: Lymphocyte 6 % (19-41); Monocyte 9 % (0-10); Myelocyte 2 % (0-0); Neutrophil-Segmented 82 % (47-70); Promyelocyte 1 % (0-0); Total Cells Counted 100 (MANUAL DIFF)
[2023-03-13 09:28] LABS: Pathologist Review Reviewed
[2023-03-13 09:35] LABS: Pathologist Review Reviewed
[2023-03-13 10:43] VITALS: O2SAT 94
[2023-03-13 11:42] LABS: Bedside Glucose 153 mg/dL (74-106)
[2023-03-13 14:38] VITALS: BP 100/45; PULSE 89; RESP 18; TEMP 36.6; O2SAT 92
--- NOTE | 2023-03-13 15:16 | CASEMGMT ---
RN CM into pt room, pt sitting up in bed in no distress. Pt denies need for any homecare. Pt states she feels strong enough to return home on her own. Pt has DME. Pt states I am feeling better and just want to go home . No further needs at this time.
--- NOTE | 2023-03-13 15:23 | PCM.DC.SUM ---
Providers Date of Admission: 03/10/23 Date of Discharge: 03/13/23 Primary Care Physician: Dr. Weston Tobar MD Reason For Visit: weakness Diagnosis Discharge Diagnosis (1) Weakness: Status: Acute Code(s): R53.1 - Weakness (2) Diarrhea: Status: Acute Code(s): R19.7 - Diarrhea, unspecified (3) Acidosis, lactic: Status: Acute Code(s): E87.20 - Acidosis, unspecified Plan #Constipation and abd pain #Leukocytosis #Deblity and weakness #Metastatic breast cancer #HTN #DMII Medications at Discharge Home Medications aspirin 81 mg tablet,delayed release 81 mg PO DAILY Heart Health 05/29/18 omeprazole magnesium 20 mg tablet,delayed release 20 mg PO DAILY GERD 03/21/20 Iris Vision Goggles #1 ea 08/11/20 nystatin 100,000 unit/gram topical powder 1 applic topical BID PRN Dermatitis #60 grams 05/08/21 hydrocodone-acetaminophen 5-325mg 5mg-325mg 1 tab PO Q12H PRN pain 06/26/21 biotin 5 mg capsule 5 mg PO DAILY 05/03/22 mecobalamin (vitamin B12) 5,000 mcg disintegrating tablet 5,000 mcg PO DAILY 05/03/22 latanoprost 0.005 % eye drops 1 drp EACH EYE DAILY 06/24/22 alendronate 70 mg tablet 70 mg PO QWEEK #14 tabs 11/27/22 lancets (Fingerstix Lancets) #100 ea 11/27/22 amlodipine 2.5 mg tablet 2.5 mg PO QDAY BP #90 tabs 12/06/22 potassium chloride 10 mEq tablet,extended release 10 meq PO DAILY 12/31/22 Handicap Placard #1 ea 01/07/23 Handicap Placard #1 ea 01/07/23 tramadol 50 mg tablet 50 mg PO Q6H PRN pain 3 days #12 tabs 01/27/23 blood sugar diagnostic (OneTouch Verio test strips) #100 ea 02/06/23 blood-glucose meter (OneTouch Verio Flex Meter) #1 ea 02/06/23 cholecalciferol (vitamin D3) 125 mcg (5,000 unit) capsule 125 mcg PO DAILY #90 caps 03/03/23 escitalopram oxalate 5 mg tablet 5 mg PO QDAY Anxiety #90 tabs 03/03/23 furosemide 20 mg tablet 20 mg PO DAILY #90 tabs 03/03/23 losartan 100 mg tablet 100 mg PO DAILY BP #90 tabs 03/03/23 metformin 500 mg tablet,extended release 24 hr 500 mg PO BID #180 tabs 03/03/23 rosuvastatin 10 mg tablet 10 mg PO DAILY #90 tabs 03/03/23 polyethylene glycol 3350 17 gram oral powder packet 17 g PO BID #0 ea 03/13/23 psyllium husk (aspartame) 3 gram oral powder packet (Daily Fiber (psyllium-aspartame)) 1 packet PO TID #0 ea 03/13/23 Hospital Course Summary of Care Provided Minutes Spent on Discharge: 32 Hospital Course: 73-year-old female with history of metastatic breast cancer, diabetes, hypertension, hyperlipidemia presented 03/08/2023 and was admitted with generalized weakness and debility. She had last chemotherapy 3 days ago prior to admission. She has pain over the chest and abdomen mainly right side. She also had diarrhea about 6 times, started 2 days prior to admission. Last abdomen CT on 1222 shows multiple hypodensity lesions in the liver suggestive of diffuse metastatic disease along with enlargement of the inferior aspect of right lobe of the liver. 9.2 mm hypodensity in the posterior portion of the spleen possible metastatic lesion too as it does not look like typical cyst. Patient complained of debility and weakness in the setting of her cancer and was admitted and started on IV fluids and worked with PT/OT. During her stay she had right-sided abdominal pain and initially complained of diarrhea but had CT that reported constipation and 2 days later KUB still had contrast in colon from CT scan and patient ultimately reported that she had this pain before when she was constipated and was relieved when she started having adequate bowel movements. Patient started on bowel regimen and on day of discharge was beginning to move bowels and was feeling better with softer abdomen and less pain and patient is mentally agreeable to discharge home and follow-up with her outpatient physicians. Patient did develop a leukocytosis and cultures obtained which were no growth to date, son did report she had received a white blood cell stimulating injection after her last chemo and patient was afebrile with no other infectious signs or symptoms or complaints so she was not started on empiric antibiotics. Discharge instructions as followed: -Will be important to maintain regular bowel movements, would recommend taking Metamucil 3 times daily and MiraLAX until you have regular bowel movements and then can scale back on this regimen. Will be important to maintain your hydration and food intake -Follow-up with your oncologist as previously scheduled -Please call your primary care provider's office upon discharge to schedule a hospital follow up within 1 week. -For any concerning signs or symptoms please call 911 or proceed to the nearest emergency department Physical Exam Narrative General: Alert, oriented HEENT: Atraumatic, normocephalic Eyes: Anicteric, normal conjunctiva, extraocular movements grossly intact Neck: Supple Respiratory: Clear to auscultation bilaterally, normal respiratory effort Cardiovascular: Regular rate, systolic ejection murmur GI: Soft, nondistended, tenderness significantly improved Extremities: No edema Musculoskeletal: Moving all extremities Neuro: No overt focal neurological deficits Skin: No rashes appreciated Psych: Cooperative Weight / BMI Weight Weight: 58.831 kg Body Mass Index (BMI) 27.1 ABG / Lab / Microbiology Data 03/13/23 07:17 03/13/23 07:17 Laboratory: Laboratory Results - last 24 hr 03/11/23 07:49: Diff Path Review Reviewed 03/12/23 07:15: Diff Path Review Reviewed 03/12/23 16:35: POC Glucose 137 H 03/12/23 22:20: POC Glucose 124 H 03/13/23 07:17: WBC 20.7 H, RBC 3.23 L, Hgb 9.5 L, Hct 29.8 L, MCV 92.3, MCH 29.4, MCHC 31.9 L, RDW Std Deviation 51.3 H, RDW Coeff of Awa 15.7 H, Plt Count 174, MPV 11.9, Neut % (Auto) Not Reportable, Total Counted 100, Neutrophils % (Manual) 82 H, Lymphocytes % (Manual) 6 L, Monocytes % (Manual) 9, Myelocytes % 2 H, Promyelocytes % 1 H, Diff Path Review May foll, Sodium 139, Potassium 3.8, Chloride 107, Carbon Dioxide 28.0, Anion Gap 4 L, BUN 5 L, Creatinine 0.65, Estim Creat Clear Calc 49.51, Est GFR (MDRD) Af Amer 115, Est GFR (MDRD) Non-Af 95, BUN/Creatinine Ratio 7.7 L, Glucose 142 H, Calcium 9.0, Total Bilirubin 0.30, AST 37, ALT 43, Alkaline Phosphatase 199 H, Total Protein 5.7 L, Albumin 2.5 L, Globulin 3.2, Albumin/Globulin Ratio 0.8 L 03/13/23 11:07: POC Glucose 153 H Microbiology: Microbiology 03/07/23 23:06 Blood Culture (Wb) - Left Hand Blood Culture - Final No growth in 5 days. 03/07/23 22:50 Blood Culture (Wb) - Port Blood Culture - Final No growth in 5 days. 03/07/23 23:40 Stool Enteric Bacteriology - Final 03/07/23 23:40 Stool Clostridioides difficile (PCR) - Final 03/07/23 22:57 Mucosa - Nose SARS-CoV-2, Influenza & RSV (PCR) - Final D/C Instructions Discharge Diet: Light diet - advance as tolerated Meaningful Use Info Meaningful Use Diagnoses (Choose all that apply): None applicable Discharge Plan Admission Admit Date/Time: 03/10/23 17:14 Primary Reason for Your Visit: Weakness Attending Provider: Sue Chino Primary Care Provider: Weston Tobar Consulting Providers: Julieth Parra; Kam Carrillo Instructions Patient Instructions: ED Fall Prevention Additional Instructions / Restrictions: DISCHARGE INSTRUCTIONS PLEASE READ *Please take this with you to your next doctors appointment* -Will be important to maintain regular bowel movements, would recommend taking Metamucil 3 times daily and MiraLAX until you have regular bowel movements and then can scale back on this regimen. Will be important to maintain your hydration and food intake -Follow-up with your oncologist as previously scheduled -Please call your primary care provider's office upon discharge to schedule a hospital follow up within 1 week. -For any concerning signs or symptoms please call 911 or proceed to the nearest emergency department Discharge Orders/Prescriptions Prescriptions: New polyethylene glycol 3350 17 gram Powder In Packet 17 g PO BID Qty: 0 0RF Daily Fiber (psyllium-aspart) 3 gram Powder In Packet 1 packet PO TID Qty: 0 0RF No Action (DME) Iris Vision Goggles See Rx Instructions .Route .MEDSUPPLY Qty: 1 0RF Rx Instructions: As directed nystatin 100,000 unit/gram powder 1 applic TOPICAL BID PRN (Reason: Dermatitis) Qty: 60 3RF Protocol: *Topical Application Instructions APPLICATION INSTRUCTIONS: Apply to affected area hydrocodone-acetaminophen 5-325 mg tablet 1 tab PO Q12H PRN (Reason: pain) biotin 5 mg capsule 5 mg PO DAILY mecobalamin (vitamin B12) 5,000 mcg tablet,disintegrating 5,000 mcg PO DAILY Rx Instructions: daily; alendronate 70 mg tablet 70 mg PO QWEEK Qty: 14 3RF Patient Comments: MONDAYS (DME) lancets [Fingerstix Lancets] [facility] See Rx Instructions .Route Qty: 100 3RF Rx Instructions: Check blood sugar twice a day (DME) Handicap Placard See Rx Instructions .ROUTE .MEDSUPPLY Qty: 1 0RF Rx Instructions: As directed, length of time 3 years (DME) Handicap Placard See Rx Instructions .ROUTE .MEDSUPPLY Qty: 1 0RF Rx Instructions: As directed, length of time 3 years potassium chloride 10 mEq tablet extended release 10 meq PO DAILY aspirin 81 MG tablet,delayed release (DR/EC) 81 mg PO DAILY omeprazole magnesium 20 MG tablet,delayed release (DR/EC) 20 mg PO DAILY latanoprost 0.005 % drops 1 drp EACH EYE DAILY Patient Comments: Apply 1 drop in both eyes daily tramadol 50 mg tablet 50 mg PO Q6H PRN (Reason: pain) 3 Days Qty: 12 0RF amlodipine 2.5 mg tablet 2.5 mg PO QDAY Qty: 90 3RF (DME) OneTouch Verio test strips Strip See Rx Instructions .Route Qty: 100 3RF Rx Instructions: As directed ([facility]) blood-glucose meter [OneTouch Verio Flex meter] [facility] See Rx Instructions .Route Qty: 1 0RF Rx Instructions: As directed cholecalciferol (vitamin D3) 125 mcg (5,000 unit) capsule 125 mcg PO DAILY Qty: 90 2RF escitalopram oxalate 5 mg tablet 5 mg PO QDAY Qty: 90 2RF furosemide 20 mg tablet 20 mg PO DAILY Qty: 90 2RF losartan 100 mg tablet 100 mg PO DAILY Qty: 90 2RF metformin 500 mg tablet extended release 24 hr 500 mg PO BID Qty: 180 2RF rosuvastatin 10 mg tablet 10 mg PO DAILY Qty: 90 1RF Referrals / Follow Up: Weston Tobar MD [Primary Care Provider] - 03/17/23 1:15 pm Disposition Disposition (needs filled in before D/C Order can be placed): Home, Self Care Charges/Coding Visit Charges Inpatient E&M: 70480 Disch Hosp >30min
[2023-03-13 16:28] LABS: Bedside Glucose 173 mg/dL (74-106)
[2023-03-13 16:35] LABS: Bedside Glucose 108 mg/dL (74-106)
[2023-03-13 23:02] LABS: Absolute Lymphocyte Count 1.24 X10^3/uL (0.83-4.51)
[2023-03-14 14:53] LABS: Pathologist Review Reviewed
== END 2023-03-13 20:06 | disposition home or self-care (01) | DRG 948 ==
LOC: ED 03-08 03:13 → MS3 03-08 04:02
PROVIDERS: Internal Medicine; Admitting Provider Student in an Organized Health Care Education/Training Program; Emergency Provider Emergency Medicine; PCP Internal Medicine; Visit Provider Internal Medicine
DX: R53.1 Weakness (principal); C78.89 Secondary malignant neoplasm of other digestive organs; E87.20 Acidosis, unspecified; C78.7 Secondary malignant neoplasm of liver and intrahepatic bile duct; C50.911 Malignant neoplasm of unspecified site of right female breast; E11.9 Type 2 diabetes mellitus without complications; E86.0 Dehydration; I10 Essential (primary) hypertension; K59.00 Constipation, unspecified; E78.5 Hyperlipidemia, unspecified; M54.9 Dorsalgia, unspecified; R11.0 Nausea; R19.7 Diarrhea, unspecified; K21.9 Gastro-esophageal reflux disease without esophagitis; Z95.828 Presence of other vascular implants and grafts; M81.0 Age-related osteoporosis without current pathological fracture; R79.89 Other specified abnormal findings of blood chemistry; T45.1X5A Adverse effect of antineoplastic and immunosuppressive drugs, initial encounter; Z11.52 Encounter for screening for COVID-19; R53.81 Other malaise; Z79.83 Long term (current) use of bisphosphonates; G89.29 Other chronic pain; R07.9 Chest pain, unspecified; H54.8 Legal blindness, as defined in USA; Z17.0 Estrogen receptor positive status [ER+]; Z79.82 Long term (current) use of aspirin; Z79.84 Long term (current) use of oral hypoglycemic drugs; Z79.899 Other long term (current) drug therapy; Z87.891 Personal history of nicotine dependence; Z96.653 Presence of artificial knee joint, bilateral; Z90.11 Acquired absence of right breast and nipple
CPT/HCPCS: 36415; 36591; 71045; 71275; 74018; 74177; 80048; 80053; 81001; 82962; 83605; 84145; 84484; 85025; 85379; 87040; 87493; 87506; 87631; 93005; 94668; 97116; 97162; 97166; 97530; 97535; 99285; J7030; Q9967; A4216; J2405

== ENCOUNTER → 2023-03-17 | Outpatient (CLI) | payer MEDICARE, SELFPAY ==
[2023-03-14 09:40] VITALS: BMI 24.4
[2023-03-17 13:53] LABS: Bacteria 0 SEEN /hpf (None Seen); Mucous, Urine 0 SEEN /hpf (<or=2+); Red Blood Cells-Urine 0 SEEN /hpf (0-5)
[2023-03-17 15:38] LABS: Color, Urine Yellow (Yellow); Glucose, Dipstick Normal (Normal); Ketone-Dipstick Negative (Negative); Leukocyte Esterase-Dipstick 25 /ul (Negative); Nitrite-Dipstick Negative (Negative); Occult Blood-Urine Negative /ul (Negative); Protein-Dipstick 15 mg/dl (Negative); Specific Gravity, Urine 1.015 (1.002-1.030); Urine Bilirubin Dipstick Negative (Negative); Urine Clarity Clear (Clear); Urine Urobilinogen Normal (Normal); Urine pH 6.5 (5.0 - 8.0)
[2023-03-17 16:19] LABS: Squamous Epithelial Cells - UA 0-5 SEEN /hpf (5-10); White Blood Cells 0-5 SEEN /hpf (0-5)
== END | disposition home or self-care (01) ==
LOC: LABSPEC 13:52
PROVIDERS: PCP Internal Medicine; Referring Provider Internal Medicine; Visit Provider Internal Medicine
DX: R33.9 Retention of urine, unspecified (principal)
CPT/HCPCS: 81001

== ENCOUNTER → 2023-04-24 | Outpatient (CLI) | payer MEDICARE, SELFPAY ==
[2023-03-14 09:40] VITALS: BMI 24.4
== END | disposition home or self-care (01) ==
LOC: PSN 10:48
PROVIDERS: PCP Internal Medicine; Referring Provider Nurse Practitioner; Visit Provider Nurse Practitioner
DX: R00.2 Palpitations (principal)
CPT/HCPCS: 93225; 93226

== ENCOUNTER → 2023-06-02 | Outpatient (CLI) | payer MEDICARE, SELFPAY ==
[2023-03-14 09:40] VITALS: BMI 24.4
--- NOTE | 2023-06-02 13:10 | CT_ITS ---
STUDY: CT CHEST T ABDOMEN WITH CONTRAST REASON FOR EXAM: Female, 73 years old. F/U BREAST CA ON RX IV CONTRAST ONLY RADIATION DOSAGE (If Supplied By Facility): CTDIvol = ( 7.97 ) mGy, DLP = ( 455.03 ) mGycm TECHNIQUE: Transaxial imaging was performed following intravenous administration of 100ML ISOVUE 300. Multiplanar coronal and sagittal images were reformatted. Individualized dose optimization techniques were used for this CT. COMPARISON: Comparison is made with prior study of Richie 2023. FINDINGS: CHEST A right-sided portacatheter is seen with the tip in the superior vena cava. The patient is status post right mastectomy and right axillary node dissection. The lungs are normal. There is no demonstrated pleural abnormality. There are calcifications of the coronary arteries. Normal mediastinum. Normal hilar regions. Normal unenhanced pulmonary arteries. Normal aorta arch and descending thoracic aorta. Stable compression deformity of the T12 vertebrae. There is no demonstrated abnormality of the visualized upper abdomen. ABDOMEN There is decreased attenuation of the liver consistent with steatosis. Since prior study dated September 07, 2023, the previously seen hypodense masses in the liver have improved. The largest is seen in the inferior medial aspect of the right lobe of the liver measuring 2.9 cm x 2 cm. There are surgical clips in the gallbladder fossa consistent with a prior cholecystectomy. Splenomegaly. Stable 7.5 mm hypodense nodule in the inferior lateral aspect of the spleen. Normal pancreas. Normal bilateral adrenal glands. Normal right kidney. Normal left kidney. Normal visualized stomach. Normal small intestine. Moderate amount of fecal material is seen in the colon. The appendix is visualized and appears normal. There is diffuse atherosclerotic calcification of the abdominal aorta, without a demonstrated aneurysm. Normal inferior vena cava. Normal retroperitoneum. There is a small umbilical hernia containing fat. There are diffuse degenerative changes of the visualized lumbar spine. CT/CT Chest AND Abd W/ Contrast IMPRESSION: Interval improvement of the liver metastasis. Stable hypodensity in the spleen. Splenomegaly. Electronically Signed: Channing Villanueva MD at 16:02 EDT ,
[2023-06-02] MEDS: 0.9% Saline Lock 10 ML Syringe IV (13:16)
== END | disposition home or self-care (01) ==
LOC: CT 12:38
PROVIDERS: PCP Internal Medicine; Referring Provider Internal Medicine Hematology & Oncology; Visit Provider Internal Medicine Hematology & Oncology
DX: C50.911 Malignant neoplasm of unspecified site of right female breast (principal); C78.7 Secondary malignant neoplasm of liver and intrahepatic bile duct
CPT/HCPCS: 71260; 74160; Q9967; A4216

== ENCOUNTER → 2023-06-16 | Outpatient (CLI) | payer MEDICARE, SELFPAY ==
[2023-03-14 09:40] VITALS: BMI 24.4
--- NOTE | 2023-06-16 15:50 | RAD_ITS ---
INDICATION: cough EXAMINATION/TECHNIQUE: X-RAY - XR Chest 2 Views COMPARISON: FINDINGS: LINES/DEVICES: Right venous port with tip at the distal SVC. LUNGS: No consolidation, edema or effusion. No pneumothorax. MEDIASTINUM AND CARDIOVASCULAR STRUCTURES: Cardiac silhouette not enlarged. Central airways and mediastinal contour are unremarkable. BONES AND SOFT TISSUES: There are surgical clips over the right axilla. RAD/Chest PA and Lateral IMPRESSION: No radiographic evidence of acute cardiopulmonary disease. Electronically Signed: Avtar Morel DO at 16:04 EDT ,
== END | disposition home or self-care (01) ==
LOC: RAD 15:39
PROVIDERS: PCP Internal Medicine; Referring Provider Nurse Practitioner Family; Visit Provider Nurse Practitioner Family
DX: R05.9 Cough, unspecified (principal)
CPT/HCPCS: 71046

== ENCOUNTER → 2023-08-25 | Outpatient (CLI) | payer MEDICARE, SELFPAY ==
[2023-03-14 09:40] VITALS: BMI 24.4
--- NOTE | 2023-08-25 13:19 | CT_ITS ---
INDICATION: F/U BREAST CANCER EXAMINATION: CT CHEST AND ABDOMEN WITH CONTRAST - CT Chest And Abdomen W/ Contrast Injection TECHNIQUE: Helically acquired images were obtained of the chest and abdomen. The protocol utilizes one or more of the following dose reduction techniques: automated exposure control, adjustment of mA and/or kV according to patient size,and/or use of iterative reconstruction technique. IV Contrast dosage and agent: 100 cc of Isovue-300 Oral contrast: None. COMPARISON: Prior study dated: 06/02/2023 FINDINGS: ----Chest: LUNGS, PLEURA AND LARGE AIRWAYS: No masses, consolidation, or edema. No pleural effusion or thickening. No pneumothorax. Right-sided Port-A-Cath with the tip in the right atrium. THYROID: No thyroid lesions. HEART AND PERICARDIUM: Heart size is normal. No pericardial effusion. Coronary calcifications. VESSELS: Thoracic aorta is not dilated. MEDIASTINUM AND RICARDO: No mediastinal or hilar adenopathy. Esophagus is unremarkable. No hiatal hernia. BONES: No suspicious lytic or blastic abnormality. ----Abdomen (without Pelvis): LIVER: Multiple liver masses are again seen consistent with metastases for the most part unchanged prior examination. The largest mass the right lobe adjacent to gallbladder fossa measuring about 2.1 x 2 cm. Several low-density lesions are seen in the left lobe. Atrophic changes of the right lobe are again seen. GALLBLADDER AND BILIARY TREE: Status post cholecystectomy. No intra- or extrahepatic biliary ductal dilation. PANCREAS: No focal cystic or solid mass. SPLEEN: Prominent spleen with small hypodense lesion measuring about 1 cm unchanged. ADRENAL GLANDS: No nodules. KIDNEYS AND URETERS: Tiny simple cyst in the left kidney for which no further follow-up exam is needed. No hydronephrosis. PERITONEUM: No ascites or free air. No other fluid collection. BOWEL: The appendix is not visualized. No stomach or bowel distension. No focal inflammatory change. LYMPH NODES: No enlarged mesenteric or retroperitoneal lymph nodes. VESSELS: Atherosclerotic excretions of the abdominal aorta without evidence of aneurysm. ABDOMINAL WALL: No discrete abdominal wall hernia. BONES: No lytic or blastic abnormality. CT/CT Chest AND Abd W/ Contrast IMPRESSION: Multiple low-density liver lesions consistent with metastases/unchanged. No evidence of pulmonary metastases. Stable splenic lesion unchanged. Otherwise no focal acute inflammatory process. Electronically Signed: Eliel Lujan MD at 10:26 EDT ,
[2023-08-25] MEDS: 0.9% Saline Lock 10 ML Syringe IV (13:50)
== END | disposition home or self-care (01) ==
LOC: CT 13:19
PROVIDERS: PCP Internal Medicine; Referring Provider Internal Medicine Hematology & Oncology; Visit Provider Internal Medicine Hematology & Oncology
DX: C50.919 Malignant neoplasm of unspecified site of unspecified female breast (principal); C78.7 Secondary malignant neoplasm of liver and intrahepatic bile duct
CPT/HCPCS: 71260; 74160; Q9967; A4216

== ENCOUNTER → 2023-09-09 | Outpatient (CLI) | payer MEDICARE, SELFPAY ==
[2023-03-14 09:40] VITALS: BMI 24.4
--- NOTE | 2023-09-09 11:11 | EKG12_ITS ---
Test Reason : PALPS Blood Pressure : / mmHG Vent. Rate : 075 BPM Atrial Rate : 075 BPM P-R Int : 178 ms QRS Dur : 072 ms QT Int : 408 ms P-R-T Axes : 058 021 020 degrees QTc Int : 455 ms Sinus rhythm with Premature atrial complexes Otherwise normal ECG Confirmed by SARA CRUZ, TAVARES ([id number]), photograph editor JOSE SALGADO ([id number]) on 09/10/2023 9:33:52 AM Referred By: Tonie Enrique Confirmed By:MARC RUIZ MD
== END | disposition home or self-care (01) ==
LOC: PSN 11:11
PROVIDERS: PCP Internal Medicine; Referring Provider Nurse Practitioner Family; Visit Provider Nurse Practitioner Family
DX: R00.2 Palpitations (principal); R00.1 Bradycardia, unspecified
CPT/HCPCS: 93005

== ENCOUNTER → 2023-10-20 | Outpatient (CLI) | payer MEDICARE, SELFPAY ==
[2023-03-14 09:40] VITALS: BMI 24.4
[2023-10-20 15:15] LABS: Hemoglobin 11.6 g/dL (12.0-15.0); Mean Corp Hgb Conc 31.4 g/dL (32-36); Mean Corpuscular Hgb 30.8 pg (27.0-32.0); Mean Corpuscular Volume 98.1 fL (81-99); POSITIVE COUNT YES; POSITIVE DIFFERENTIAL YES; POSITIVE MORPHOLOGY YES; Platelet Count 265 K/mm3 (150-450); RBC Distribution Width CV 15.8 % (11.6-14.6); RBC Distribution Width SD 56.1 fl (35.1-43.9); Red Blood Count 3.77 M/mm3 (4.2-5.4); White Blood Count 29.4 K/mm3 (4.4-11.0)
[2023-10-20 15:49] LABS: Thyroid Stim Hormone (TSH) 0.746 uIU/mL (0.358-3.740)
[2023-10-20 15:53] LABS: Differential Indicated MANUAL DIFF
[2023-10-20 16:01] LABS: Differential Comment MANUAL
[2023-10-20 16:10] LABS: Lymphocyte 14 % (19-41); Metamyelocyte 3 % (0-1); Monocyte 3 % (0-10); Myelocyte 2 % (0-0); Neutrophil-Band 6 % (0-5); Neutrophil-Segmented 72 % (47-70); Total Cells Counted 100 (MANUAL DIFF)
[2023-10-20 16:12] LABS: Absolute Lymphocyte Count 4.12 X10^3/uL (0.83-4.51); Atypical Lymphocyte RARE %; Reactive Lymphocyte 1+; Toxic Granulation 1+
[2023-10-20 16:13] LABS: Platelet Estimate ADEQUATE (ADEQ)
[2023-10-20 16:14] LABS: Red Cell Morphology NORM C+C NORMAL (NORM C&C)
[2023-10-21 13:54] LABS: Pathologist Review Reviewed
== END | disposition home or self-care (01) ==
LOC: BIMLAB 13:56
PROVIDERS: PCP Internal Medicine; Referring Provider Internal Medicine; Visit Provider Internal Medicine
DX: K21.9 Gastro-esophageal reflux disease without esophagitis (principal); I10 Essential (primary) hypertension; R05.9 Cough, unspecified
CPT/HCPCS: 36415; 84439; 84443; 85025; 87502; 87635

== ENCOUNTER → 2023-10-21 | Outpatient (CLI) | payer MEDICARE, SELFPAY ==
[2023-03-14 09:40] VITALS: BMI 24.4
--- NOTE | 2023-10-21 13:22 | RAD_ITS ---
STUDY: X-RAY CHEST REASON FOR EXAM: Female, 73 years old. Cough. TECHNIQUE: Frontal and lateral views of the chest. COMPARISON: June 16, 2023 FINDINGS: Stable right internal jugular catheter with tip projected over the upper SVC. Stable mild hyperinflation with diffuse interstitial pattern. There is no demonstrated pleural abnormality. Cardiomegaly unchanged. Normal mediastinum and wil. Normal visualized pulmonary arteries. Aortic tortuosity with calcification unchanged. Diffuse thoracic osteopenia with mild diffuse spondylosis and increased kyphosis. Stable clips projected over the right axilla. No abnormality of the visualized soft tissue structures of the upper abdomen. RAD/Chest PA and Lateral IMPRESSION: Stable chest with no acute or active cardiopulmonary disease. Electronically Signed: Sarmad Ji MD at 13:57 EDT ,
== END | disposition home or self-care (01) ==
LOC: RAD 13:18
PROVIDERS: PCP Internal Medicine; Referring Provider Internal Medicine; Visit Provider Internal Medicine
DX: R05.9 Cough, unspecified (principal)
CPT/HCPCS: 71046

== ENCOUNTER → 2023-12-15 | Outpatient (CLI) | payer MEDICARE, SELFPAY ==
[2023-03-14 09:40] VITALS: BMI 24.4
--- NOTE | 2023-12-15 14:02 | CT_ITS ---
INDICATION: F/U METS BREAST CANCER ON RX IV CONT ONLY EXAMINATION: CT CHEST AND ABDOMEN WITH CONTRAST - CT Chest And Abdomen W/ Contrast Injection TECHNIQUE: Helically acquired images were obtained of the chest and abdomen. The protocol utilizes one or more of the following dose reduction techniques: automated exposure control, adjustment of mA and/or kV according to patient size,and/or use of iterative reconstruction technique. IV Contrast dosage and agent: 75 cc of Isovue-300 Oral contrast: None. COMPARISON: Prior study dated: 08/25/2023 FINDINGS: ----Chest: LUNGS, PLEURA AND LARGE AIRWAYS: No masses, consolidation, or edema. No pleural effusion or thickening. No pneumothorax. Right-sided Port-A-Cath in stable position. THYROID: No thyroid lesions. HEART AND PERICARDIUM: Heart size is normal. No pericardial effusion. No significant coronary calcifications. VESSELS: Thoracic aorta is not dilated. MEDIASTINUM AND RICARDO: No mediastinal or hilar adenopathy. Esophagus is unremarkable. No hiatal hernia. Status post right mastectomy. Surgical clips in right axilla. BONES: No suspicious lytic or blastic abnormality. ----Abdomen (without Pelvis): LIVER: Multiple liver lesions are again seen for the most part unchanged. There is however a new developed subtle low-density lesion in the caudate lobe measuring about 1.3 cm best seen on axial image 26 series 3. GALLBLADDER AND BILIARY TREE: Status post cholecystectomy. No intra- or extrahepatic biliary ductal dilation. PANCREAS: No focal cystic or solid mass. SPLEEN: 8 mm splenic lesion unchanged. ADRENAL GLANDS: No nodules. KIDNEYS AND URETERS: Normal renal size and position. No hydronephrosis. PERITONEUM: No ascites or free air. No other fluid collection. BOWEL: The appendix region is not included on this exam. No stomach or bowel distension. No focal inflammatory change. Motion artifacts limiting the evaluation of the bowel loops. LYMPH NODES: No enlarged mesenteric or retroperitoneal lymph nodes. VESSELS: Atherosclerotic calcifications of the abdominal aorta without evidence of aneurysm. ABDOMINAL WALL: No discrete abdominal wall hernia. BONES: No lytic or blastic abnormality. No significant change. CT/CT Chest AND Abd W/ Contrast IMPRESSION: 1. Probable new small liver lesion in the caudate lobe as described above. Repeat PET scan might be of value. 2. Additional liver lesions for the most part unchanged. 3. Otherwise no significant change. Electronically Signed: Eliel Lujan MD at 13:42 EDT ,
[2023-12-15] MEDS: 0.9% Saline Lock 10 ML Syringe IV ×2 (14:25→14:35)
[2023-12-15] MEDS: 0.9 % NaCl (Sterile) Posiflush 10 mL IV (14:25)
--- OUTSIDE RECORDS SUMMARY | 2023-12-15 17:35 | XMS RPT_ITS | CCD ---
Author Organization [facility] Team Providers Care On Site Manager Name Role Phone Carolyn CRUZ, Jamar Gomez Unavailable GIL, DANGELO Unavailable Unavailable GILOMKARDANGELO Unavailable Unavailable IM[facility] Unavailable Unavailable Ekaterina CRUZ, Weston Chery Primary Care Provider Allergies Allergy Classification Reported Allergen(s) Allergy Type Date of Onset Reaction(s) Facility (1 source) [facility] ANTIHISTAMINE ALLERGY drug allergy 08-29-19 17 heart beats fast, headache [facility] Work Phone: (4 sources) ANTIHISTAMINES - ALKYLAMINE; Translations: [ANTIHISTAMINES - ALKYLAMINE] Propensity to adverse reactions to drug (disorder) 03-02-19 08 Other: See Comments [facility] Other [place] [facility] Medications Completed/Discontinued Medications Medication Drug Class(es) Dates Sig (Normalized) Sig (Original) acetaminophen 500 mg oral tablet (2 sources) Start: 06-14-2014 take 2 tablets by mouth every eight hours acetaminophen (TYLENOL) 500 mg tablet Take 2 tablets by mouth every 8 hours. 90 tablet 0 06/14/2014 Active Comment on above: Take 2 tablets by [facility] every 8 hours. acetaminophen 325 mg / oxyCODONE hydrochloride 5 mg oral tablet (3 sources) Opioid Agonist Start: 11-28-2016 take 1 tablet by mouth four times daily as needed for pain PERCOCET 5-325 MG TABS One tablet by mouth four times daily as needed for pain OXYCODONE-ACETAMIN OPHEN [id number] Jamar Leon MD ALPRAZolam 0.5 mg oral tablet (1 source) Benzodiazepine Start: 10-18-2016 take 1 tablet by mouth three times daily as needed for anxiety and muscle spasms XANAX 0.5 MG TABS One tablet by mouth three times daily as needed for anxiety and spasm ALPRAZOLAM [id number] Jamar Leon MD aspirin 81 mg delayed release oral tablet (1 source) Nonsteroidal Anti-inflammatory Drug Start: 08-28-2016 ASPIRIN EC 81 MG TBEC 1 po daily ASPIRIN [id number] Rosina Landeros RN SECURITY cefadroxil 500 mg oral capsule (1 source) Cephalosporin Antibacterial Start: 12-11-2016 take 1 tablet by mouth twice daily CEFADROXIL 500 MG CAPS One tablet by mouth twice daily CEFADROXIL [id number] Jamar Leon MD chlordiazePOXIDE hydrochloride 5 mg / clidinium bromide 2.5 mg oral capsule (4 sources) Anticholinergic, Benzodiazepine Start: 08-30-2016 End: 09-19-2016 LIBRAX 5-2.5 MG CAPS take 1 tablet at night prn CHLORDIAZEPOXIDE-C LIDINIUM [id number] Weston Tobar MD Start: 08-30-2016 End: 08-30-2016 LIBRAX 5-2.5 MG CAPS Take 1 tablet every 4- 6 hours as needed CHLORDIAZEPOXIDE-CLIDINIUM [id number] Weston Tobar MD fluconazole 100 mg oral tablet (1 source) Azole Antifungal Start: 12-04-2016 take 1 tablet by mouth twice daily FLUCONAZOLE 100 MG TABS One tablet by mouth twice daily FLUCONAZOLE [id number] Jamar Leon MD ibuprofen 200 mg oral capsule (2 sources) Nonsteroidal Anti-inflammatory Drug Start: 08-28-2016 End: 08-30-2016 ADVIL 200 MG CAPS 600 mg po as needed IBUPROFEN [id number] Rosina Landeros CMA levoFLOXacin 500 mg oral tablet (1 source) Quinolone Antimicrobial Start: 12-25-2016 take 1 tablet by mouth once daily LEVAQUIN 500 MG TABS One tablet by mouth daily LEVOFLOXACIN [id number] Jamar Leon MD naproxen sodium 220 mg oral capsule (2 sources) Nonsteroidal Anti-inflammatory Drug Start: 08-30-2016 End: 09-29-2016 ALEVE 220 MG CAPS NAPROXEN SODIUM [id number] Weston Tobar MD Start: 08-30-2016 End: 09-29-2016 ALEVE 220 MG CAPS take 1 cap Q12prn NAPROXEN SODIUM [id number] Weston Tobar MD omeprazole 40 mg delayed release oral capsule (1 source) Proton Pump Inhibitor Start: 08-30-2016 End: 10-29-2016 OMEPRAZOLE 40 MG CPDR 1 tablet daily 30 minutes before breakfast OMEPRAZOLE [id number] Weston Tobar MD Problems Active Problems Problem Classification Problem Date Documented Da te Episodic/Chronic Cancer of breast (1 source) Infiltrating duct carcinoma of breast; Translations: [Malignant neoplasm of unspecified site of right female breast] Onset: 7 10-15-2016 Chronic Esophageal disorders (1 source) Gastroesophageal reflux disease; Translations: [Gastro-esophageal reflux disease with esophagitis] 08-28-2016 Chronic Osteoarthritis (2 sources) Osteoarthritis of knee; Translations: [Osteoarthritis of knee, unspecified] Onset: 5 06-03-2014 Chronic Other gastrointestinal disorders (1 source) Irritable [...] Results Test Name Value Interpretation Reference Range Facility OVon 04-16-2017 [facility] Office Visit (AGCARDPOB) JARVIS FRANCES ([id number]) 1950 FDate Time Provider Department04/16/17 1:00 PM DANGELO YUANARDLING During your visit today, we recorded the following information about you: Pulse Respiration Blood pressure Weight 91/minute 16/minute 130/76 54 kg Height 1.499 Andrew Jaimes CMA 04/16/2017 1:17 PM SignedPatient denies any cardiac complaints today.Michael Garcia MD 04/16/2017 1:37 PM SignedTachycardia (Fast Heartbeat)What is tachycardia?Tachycardia is a resting heart rate that stays above 100 beats per minute whenyou are resting. The normal adult heart rate ranges from about 50 to 100 beatsper minute.What is the cause?An electrical signal in your heart starts each heartbeat, causing the heartmuscle to squeeze (contract). Normally, this signal starts in the upper rightchamber of the heart (the right atrium) at a place called the sinus node. Thesignal then follows pathways to the upper left atrium and to the lower chambersof the heart (the ventricles).Many different things can cause a fast resting heart rate. Some of theconditions that can cause your heart to beat faster are:-Anemia-High blood metyxkji-Dhnkiitqv-Qzltq-S tress-Thyroid problemsProblems with the heart can cause a fast heart rate. For example:-Changes in the electrical signal that causes your heart to beat can make yourheart beat faster.-Muscles in the upper chambers of the heart may tend to quiver and send randomsignals to the lower chambers of the heart.-The heartbeat may start in the lower chambers of the heart rather than theupper chamber.What are the symptoms?The main symptom is feeling your heart beating fast. Other symptoms may include:-Lightheadedness or giqhzgxp-Zbpetd-Hpeo sweat-Shortness of breath-Chest pain-WeaknessContact your healthcare provider if you have any of these symptoms in additionto a fast heartbeat.How is it diagnosed?Your healthcare provider will ask about your symptoms and medical history andexamine you. Tests may include:-Blood tests-Chest X-rays-An ECG (also called an EKG or electrocardiogram), which measures and recordsyour heartbeat. You may have an ECG while you are resting or while you exerciseon a treadmill. You may also be asked to wear a small portable ECG monitor fora few days or longer.-An electrophysiology study, which uses tiny wires put into your heart throughyour veins to look at the electrical paths in your heartHow is it treated?The treatment depends on the type of tachycardia that you have. Treatment mayinclude:-Medicine to slow your heartbeat-Ablation, which uses a small tube called a catheter to deliver electricalpulses to the inside of the heart. The electrical pulses make small scars thatblock abnormal electrical pathways. This helps you have a regular heart rhythm.-An implantable cardiac defibrillator (ICD), which is a device that can shockthe heart back to a regular rhythm. In cases of life-threatening heart rhythmproblems, ICDs can provide an instant, life-saving electrical shock beforemedical help arrives.You may also receive treatment for any health problems you have that may becausing tachycardia.How can I take care of myself?If you have heart disease, high blood pressure, or another medical problem,follow your treatment plan. Be sure to take all medicines as prescribed by yourprovider.Try to have a heart-healthy lifestyle:-Eat a healthy diet.-Try to keep a healthy weight. If you are overweight, lose weight.-Stay fit with the right kind of exercise for you.-Learn ways to manage stress.-If you smoke, try to quit. Talk to your healthcare provider about ways to quitsmoking.-If you want to drink alcohol, ask your healthcare provider how much is safefor you to drink.-Try to get at least 7 to 9 hours of sleep each night.Ask your provider:-How and when you will hear your test results-How long it will take to recover-What activities you should avoid and when you can return to your normalactivities-How to take care of yourself at home-What symptoms or problems you should watch for and what to do if you have themMake sure you know when you should come back for a checkup.How can I help prevent tachycardia?There is no specific way to prevent tachycardia, but a healthy lifestyle canhelp prevent heart disease, which can cause tachycardia.Developed by [employer].Published by [employer].Copyright ?2014 [employer] and/or one of its subsidiaries. All rightsreserved.Dangelo Yuan MD 04/16/2017 2:38 PM SignedCHIEF COMPLAINT:PalpitationsHIST ORY OF PRESENT ILLNESS:Ms. Frances is a 67 year old female with a history of breast cancer statuspost right mastectomy for which she has been undergoing chemotherapy whopresents to cardiology clinic for further evaluation ofpalpitations/tachycardia .Patient reports that since she completed her last course of chemotherapy on03/27/2017, she has noted that her heart rate has been elevated ranging in the90s to 100. She is used to her heart rates running in the 60s to 70s and isworried about her heart rates being so fast. She otherwise reports her heartrates are regular and she denies any associated symptoms of chest pain,shortness of breath, or lightheadedness. Of note, she does report episodes ofdehydration from her chemotherapy for which she has required IV fluids. Sheotherwise denies any infectious symptoms, specifically denying fevers, chills,night sweats, diarrhea, dysuria or urinary frequency, cough or shortness ofbreath.Otherwise, she denies any other significant complaints. She specificallydenies symptoms of chest pain, orthopnea, paroxysmal nocturnal dyspnea, lowerextremity edema, presyncope or syncope. She does endorse very mild symptoms ofshortness of breath when she goes up a flight of stairs.PAST MEDICAL HISTORYDiagnosis Date- Benign neoplasm of colon 2002 colon polyps- Esophageal reflux- Localized osteoarthrosis not specified whether primary or secondary, lowerleg right knee- Rheumatoid arthritis (HCC)- SnoringPAST SURGICAL HISTORYProcedure Laterality Date- APPENDECTOMY- , CLASSIC, ANTE/POST CA - COLONOSCOP W/ OR W/O [facility] SPEC 11/29/16 Colonoscopy- EGD W/O OR W/BRUSH/WASH 11/29/16 EGD- EXPLORATORY OF ABDOMEN 2002 Laparotomy, exp, Zheng, [place]- KNEE SCOPE,DIAGNOSTIC 10/2006 Arthroscopy, knee right- PAST SURGICAL HISTORY OF 06/13/14 left unicondylar knee replacement- REMOVAL GALLBLADDER CholecystectomyMEDICATIONS :acetaminophen (TYLENOL) 500 mg tablet Take 2 tablets by mouth every 8 hours.ALLERGIESAllergen Reactions- Antihistamines - Al* Other: See Comments Pounding headacheSOCIAL HISTORY:Social HistorySubstance Use Topics- Smoking status: Current Every Day Smoker Packs/day: 0.50 Years: 25.00 Types: Cigarettes- Smokeless tobacco: Never Used- Alcohol use No Comment: rarelyFAMILY HISTORYProblem Relation Age of Onset- Diabetes Mother- Heart Mother RI- Heart Father MIREVIEW OF SYSTEMS:GENERAL: Negative for: Fever, Chills, or Night sweatsHEENT: Negative for: Headache, Nosebleeds, Bleeding GumsNECK: Negative for: Pain, StiffnessRESPIRATORY: Negative for: Cough, Blood in Sputum, Shortness of breath, WheezingCARDIAC: Positive for palpitations; Negative history of chest pain on exertion,dyspnea on exertion, orthopnea, paroxysmal nocturnal dyspnea, lower extremityedema, presyncope, syncope, or palpitationsGASTROINTESTIN AL: Negative for: Abdominal pain, Nausea, Vomiting, Constipation,Diarrhea, Melena, HematocheziaMUSCULOSKELETA L: Positive for: Muscle or joint painNEUROLOGIC/PSYCHIATRIC : Negative for: Weakness, Numbness, Tingling, VertigoSKIN: Negative for: RashesHEMATOLOGICAL/LYMPHA TIC: Negative for: Easy bruising , Easy bleedingENDOCRINE: Negative for: Heat or cold intolerance, Excessive sweating, Frequenturination, Frequent thirst.OTHER: The rest of the review of systems is unremarkable and negative ornon-contributoryPHYSICAL EXAMINATION:BP 130/76 Pulse 91 Resp 16 Ht 4' 11ANDquot; (1.50m) Wt 119 lb (54.0kg) SpO2 96% BMI 24.02 kg/(m2).GENERAL: Well appearing, in no acute distress.SKIN: No clubbing, no cyanosis.HEENT: Extraocular movements intact; Mucous membranes moist; no JVD; no carotidbruitsLUNGS: Clear to auscultation bilaterally, no rales, wheezing, or rhonchi.HEART: Regular rate and rhythm; normal S1/S2; no murmurs, gallops, or rubsABDOMEN: Soft, nondistended, nontenderEXTREMETIES: No peripheral edema. Grade 2/4 distal pulses bilaterally.NEURO: Oriented to person, place and time. Alert, cooperative.MUSCULOSKELETA L: Normal gait.PSYCH: Normal mood/affectCARDIAC TESTING:EKG:EKG, 04/16/17: Normal sinus rhythm. Normal EKG.I have personally reviewed the Electrocardiogram.ASSESSME NT: Ms. Frances is a 67 year old female with a history of breastcancer status post right mastectomy for which she has been undergoingchemotherapy who presents to cardiology clinic for further evaluation ofpalpitations/tachycardia .PLAN AND RECOMMENDATIONS:1. Palpitations/Tachycardia: Patient reports her heart rates have been elevatedranging in the 90s to low 100s ever since she completed her last course ofchemotherapy. She otherwise denies any other associated symptoms. Her EKG isunremarkable in clinic today and reveals normal sinus rhythm with heart ratesin the 80s. I suspect she has had normal physiologically elevated heart ratessince her last course of chemotherapy potentially related to the chemotherapyitself or possibly due to dehydration. She otherwise denies any infectioussymptoms and has had unremarkable blood work recently.I reassured her that her symptoms are unlikely to be of any significantclinical concern but recommended she have a 24-hour Holter monitor to ensure noevidence of abnormal arrhythmias and an echocardiogram to ensure a structurallynormal heart. I will follow-up the results of the studies with her over thephone and assuming these studies are unremarkable, no further cardiacevaluation will be necessary.Esteban Thomas Provider: SELF [[id number]]Allergies As of Date: 04/16/2017 Noted Allergy ReactionANTIHISTAMINES - ALKYLAMINE 03/02/2007 14 - Other: See Comments Comments: Pj headacheDate Reviewed: 04/16/2017Reviewed by: Dangelo Yuan - Fully AssessedReason for Visit: New Patient [[id number]]Primary Visit Diagnosis:SOB (shortness of breath) [R06.02] Other Visit Diagnosis:Palpitations [R00.2]Order(s):EKG WITH INTERPRETATION [00166XUL] Order #: [id number]: 1 HOLTER MONITOR 24 HOUR [[id number]] Order #: [id number] FUTURE ECHO [[id number]] Order #: [id number]: 1 FUTUREPrescriptions as of 04/16/2017 Sig: ACETAMINOPHEN 500 MG TABLET Take 2 tablets by mouth every*Medication notes this encounter ALPRAZOLAM 0.5 MG TABLET >> Trang Jaimes CMA 04/16/2017 1:16 PM >> TRANG JAIMES CMA Apr 16, 2017 1:16 PM Not taking OXYCODONE-ACETAMINOPHEN 5 MG-325 MG TABLET >> Trang Jaimes CMA 04/16/2017 1:16 PM >> TRANG JAIMES CMA FriApr 16, 2017 1:16 PM Not taking LEVOFLOXACIN 500 MG TABLET >> Trang Jaimes CMA 04/16/2017 1:16 PM >> TRANG JAIMES CMA FriApr 16, 2017 1:16 PM Not takingProblem List As Of Date 04/16/2017 Noted Resolved OA (osteoarthritis) of knee [M17.10] INVALID FOR* Osteoarthrosis, unspecified whether generalized*INVALID FOR*06/13/2014 Other instructions from your clinician: Tachycardia (Fast Heartbeat) What is tachycardia? Tachycardia is a resting heart rate that stays above 100 beats per minute when you are resting. The normal adult heart rate ranges from about 50 to 100 beats per minute. What is the cause? An electrical signal in your heart starts each heartbeat, causing the heart muscle to squeeze (contract). Normally, this signal starts in the upper right chamber of the heart (the right atrium) at a place called the sinus node. The signal then follows pathways to the upper left atrium and to the lower chambers of the heart (the ventricles). Many different things can cause a fast resting heart rate. Some of the conditions that can cause your heart to beat faster are: -Anemia -High blood pressure - -Fever -Stress -Thyroid problems Problems with the heart can cause a fast heart rate. For example: -Changes in the electrical signal that causes your heart to beat can make your heart beat faster. -Muscles in the upper chambers of the heart may tend to quiver and send random signals to the lower chambers of the heart. -The heartbeat may start in the lower chambers of the heart rather than the upper chamber. What are the symptoms? The main symptom is feeling your heart beating fast. Other symptoms may include: -Lightheadedness or fainting -Nausea -Cold sweat -Shortness of breath -Chest pain -Weakness Contact your healthcare provider if you have any of these symptoms in addition to a fast heartbeat. How is it diagnosed? Your healthcare provider will ask about your symptoms and medical history and examine you. Tests may include: -Blood tests -Chest X-rays -An ECG (also called an EKG or electrocardiogram), which measures and records your heartbeat. You may have an ECG while you are resting or while you exercise on a treadmill. You may also be asked to wear a small portable ECG monitor for a few days or longer. -An electrophysiology study, which uses tiny wires put into your heart through your veins to look at the electrical paths in your heart How is it treated? The treatment depends on the type of tachycardia that you have. Treatment may include: -Medicine to slow your heartbeat -Ablation, which uses a small tube called a catheter to deliver electrical pulses to the inside of the heart. The electrical pulses make small scars that block abnormal electrical pathways. This helps you have a regular heart rhythm. -An implantable cardiac defibrillator (ICD), which is a device that can shock the heart back to a regular rhythm. In cases of life-threatening heart rhythm problems, ICDs can provide an instant, life-saving electrical shock before medical help arrives. You may also receive treatment for any health problems you have that may be causing tachycardia. How can I take care of myself? If you have heart disease, high blood pressure, or another medical problem, follow your treatment plan. Be sure to take all medicines as prescribed by your provider. Try to have a heart-healthy lifestyle: -Eat a healthy diet. -Try to keep a healthy weight. If you are overweight, lose weight. -Stay fit with the right kind of exercise for you. -Learn ways to manage stress. -If you smoke, try to quit. Talk to your healthcare provider about ways to quit smoking. -If you want to drink alcohol, ask your healthcare provider how much is safe for you to drink. -Try to get at least 7 to 9 hours of sleep each night. Ask your provider: -How and when you will hear your test results -How long it will take to recover -What activities you should avoid and when you can return to your normal activities -How to take care of yourself at home -What symptoms or problems you should watch for and what to do if you have them Make sure you know when you should come back for a checkup. How can I help prevent tachycardia? There is no specific way to prevent tachycardia, but a healthy lifestyle can help prevent heart disease, which can cause tachycardia. Developed by [employer]. Published by [employer]. Copyright ?2014 [employer] and/or one of its subsidiaries. All rights reserved.Visit Notes:>> Trang Jaimes Wed Apr 16, 2017 1:13 PM Status: SignedPatient denies any cardiac complaints today.Trang Jaimes, ARAMMedications Discontinued During This Encounter tiZANidine (ZANAFLEX) 4 mg tablet 20 t* 0 08/30/2015 04/16/2017 Route: ORAL Sig: Take 0.5 tablets by mouth three times daily as needed (muscle spasm). Disc: Reason for discontinue is not on file. levoFLOXacin (LEVAQUIN) 500 mg tablet 12/25/2016 04/16/2017 Class: Historical Med Sig: Disc: Reason for discontinue is not on file. oxyCODONE-acetaminophen (PERCOCET) 5* 01/27/2017 04/16/2017 Class: Historical Med Sig: Disc: Reason for discontinue is not on file. ALPRAZolam (XANAX) 0.5 mg tablet 01/13/2017 04/16/2017 Class: Historical Med Sig: Disc: Reason for discontinue is not on file.Disposition: Return if symptoms worsen or fail to improve.Follow-up and Disposition History RecordedEncounter Number: [id number] Status:Closed by DANGELO YUAN on 04/16/17 [facility] PROGRESSon 04-16-2017 PROGRESS HNO ID: [id number] thor: Dangelo Givenservice: (none)Author Type: PhysicianType: Progress NotesFiled: 04/16/2017 2:38 PMNote Text:CHIEF COMPLAINT:PalpitationsHIST ORY OF PRESENT ILLNESS:Ms. Frances is a 67 year old female with a history of breast cancerstatus post right mastectomy for which she has been undergoingchemotherapy who presents to cardiology clinic for further evaluation ofpalpitations/tachycardia .Patient reports that since she completed her last course of chemotherapyon 03/27/2017, she has noted that her heart rate has been elevated rangingin the 90s to 100. She is used to her heart rates running in the 60s to70s and is worried about her heart rates being so fast. She otherwisereports her heart rates are regular and she denies any associated symptomsof chest pain, shortness of breath, or lightheadedness. Of note, she doesreport episodes of dehydration from her chemotherapy for which she hasrequired IV fluids. She otherwise denies any infectious symptoms,specifically denying fevers, chills, night sweats, diarrhea, dysuria orurinary frequency, cough or shortness of breath.Otherwise, she denies any other significant complaints. She specificallydenies symptoms of chest pain, orthopnea, paroxysmal nocturnal dyspnea,lower extremity edema, presyncope or syncope. She does endorse very mildsymptoms of shortness of breath when she goes up a flight of stairs.PAST MEDICAL HISTORYDiagnosis Date- Benign neoplasm of colon 2002 colon polyps- Esophageal reflux- Localized osteoarthrosis not specified whether primary or secondary,lower leg right knee- Rheumatoid arthritis (HCC)- SnoringPAST SURGICAL HISTORYProcedure Laterality Date- APPENDECTOMY- , CLASSIC, ANTE/POST CA - COLONOSCOP W/ OR W/O [facility] SPEC 11/29/16 Colonoscopy- EGD W/O OR W/BRUSH/WASH 11/29/16 EGD- EXPLORATORY OF ABDOMEN 2002 Laparotomy, exp, Zheng, [place]- KNEE SCOPE,DIAGNOSTIC 10/2006 Arthroscopy, knee right- PAST SURGICAL HISTORY OF 06/13/14 left unicondylar knee replacement- REMOVAL GALLBLADDER CholecystectomyMEDICATIONS :acetaminophen (TYLENOL) 500 mg tablet Take 2 tablets by mouth every 8hours.ALLERGIESAllergen Reactions- Antihistamines - Al* Other: See Comments Pounding headacheSOCIAL HISTORY:Social HistorySubstance Use Topics- Smoking status: Current Every Day Smoker Packs/day: 0.50 Years: 25.00 Types: Cigarettes- Smokeless tobacco: Never Used- Alcohol use No Comment: rarelyFAMILY HISTORYProblem Relation Age of Onset- Diabetes Mother- Heart Mother RI- Heart Father MIREVIEW OF SYSTEMS:GENERAL: Negative for: Fever, Chills, or Night sweatsHEENT: Negative for: Headache, Nosebleeds, Bleeding GumsNECK: Negative for: Pain, StiffnessRESPIRATORY: Negative for: Cough, Blood in Sputum, Shortness of breath,WheezingCARDIAC: Positive for palpitations; Negative history of chest pain onexertion, dyspnea on exertion, orthopnea, paroxysmal nocturnal dyspnea,lower extremity edema, presyncope, syncope, or palpitationsGASTROINTESTIN AL: Negative for: Abdominal pain, Nausea, Vomiting,Constipation, Diarrhea, Melena, HematocheziaMUSCULOSKELETA L: Positive for: Muscle or joint painNEUROLOGIC/PSYCHIATRIC : Negative for: Weakness, Numbness, Tingling,VertigoSKIN: Negative for: RashesHEMATOLOGICAL/LYMPHA TIC: Negative for: Easy bruising , Easy bleedingENDOCRINE: Negative for: Heat or cold intolerance, Excessive sweating,Frequent urination, Frequent thirst.OTHER: The rest of the review of systems is unremarkable and negative ornon-contributoryPHYSICAL EXAMINATION:BP 130/76 Pulse 91 Resp 16 Ht 4' 11 (1.50m) Wt 119 lb (54.0kg) SpO2 96% BMI 24.02 kg/(m2).GENERAL: Well appearing, in no acute distress.SKIN: No clubbing, no cyanosis.HEENT: Extraocular movements intact; Mucous membranes moist; no JVD; nocarotid bruitsLUNGS: Clear to auscultation bilaterally, no rales, wheezing, or rhonchi.HEART: Regular rate and rhythm; normal S1/S2; no murmurs, gallops, or rubsABDOMEN: Soft, nondistended, nontenderEXTREMETIES: No peripheral edema. Grade 2/4 distal pulses bilaterally.NEURO: Oriented to person, place and time. Alert, cooperative.MUSCULOSKELETA L: Normal gait.PSYCH: Normal mood/affectCARDIAC TESTING:EKG:EKG, 04/16/17: Normal sinus rhythm. Normal EKG.I have personally reviewed the Electrocardiogram.ASSESSME NT: Ms. Frances is a 67 year old female with a history of breastcancer status post right mastectomy for which she has been undergoingchemotherapy who presents to cardiology clinic for further evaluation ofpalpitations/tachycardia .PLAN AND RECOMMENDATIONS:1. Palpitations/Tachycardia: Patient reports her heart rates have beenelevated ranging in the 90s to low 100s ever since she completed her lastcourse of chemotherapy. She otherwise denies any other associatedsymptoms. Her EKG is unremarkable in clinic today and reveals normalsinus rhythm with heart rates in the 80s. I suspect she has had normalphysiologically elevated heart rates since her last course of chemotherapypotentially related to the chemotherapy itself or possibly due todehydration. She otherwise denies any infectious symptoms and has hadunremarkable blood work recently.I reassured her that her symptoms are unlikely to be of any significantclinical concern but recommended she have a 24-hour Holter monitor toensure no evidence of abnormal arrhythmias and an echocardiogram to ensurea structurally normal heart. I will follow-up the results of the studieswith her over the phone and assuming these studies are unremarkable, nofurther cardiac evaluation will be necessary.Dangelo Yuan MD [facility] Office Visit: postop surgery 11/15/16on 12-25-2016 Documentation of current medications (procedure) Done Invalid Interpretation Code [facility] Work Phone: [phone] Fall risk assessment No Invalid Interpretation Code [facility] Work Phone: [phone] Smoking cessation education (procedure) yes Invalid Interpretation Code [facility] Work Phone: [phone] Tobacco smoking status NHIS Never Invalid Interpretation Code [facility] Work Phone: [phone] Tobacco use CPHS Current every day smoker Invali d Interpretation Code [facility] Work Phone: [phone] Replaced Document: (P) PAP I -G HPV Hi Risk 16/18on 12-11-2016 HPV HC,HGH RISK Negative Invalid Interpretation Code Negative [facility] Work Phone: [phone] Lab Report: CBC W/Diff, Auto matedon 12-04-2016 Absolute Neut 3.8 X10 3/UL Invalid Interpretation Code 2.0-7.7 [facility] Work Phone: [phone] Basophils/100 WBC Auto (Bld) 0.4 % Invalid Interpretation Code 0-1 [facility] Work Phone: [phone] Eosinophils/100 leukocytes 6.1 % High 0-5 [facility] Work Phone: [phone] Erythrocyte distribution width Auto Ratio (RBC) 12.8 % Invalid Interpretation Code 11.6-14.6 [facility] Work Phone: [phone] Erythrocytes (RBC) 4.54 10*6/uL Invalid Interpretation Code 4.2-5.4 [facility] Work Phone: [phone] Hematocrit (HCT) 41.6 % Invalid Interpretation Code 37-47 [facility] Work Phone: [phone] Hemoglobin mass conc (Bld) 13.4 g/dL Invalid Interpretation Code 12.0-15.0 [facility] Work Phone: [phone] Immature granulocytes/100 WBC (Bld) 0.100 % Invalid Interpretation Code 0.0-0.9 [facility] Work Phone: [phone] Lymphocytes 2.31 X10 3/UL Invalid Interpretation Code 0.83-4.51 [facility] Work Phone: [phone] Lymphocytes/100 leukocytes 33.0 % Invalid Interpretation Code 19-41 [facility] Work Phone: [phone] MCH 29.5 pg Invalid Interpretation Code 27.0-32.0 [facility] Work Phone: [phone] MCHC mass conc (RBC) 32.2 G/GL Invalid Interpretation Code 32-36 [facility] Work Phone: [phone] MCV 91.6 fL Invalid Interpretation Code 81-99 [facility] Work Phone: [phone] Monocytes/100 leukocytes 5.9 % Invalid Interpretation Code 0-10 [facility] Work Phone: [phone] Neutrophils/100 WBC Auto (Bld) 54.5 % Invalid Interpretation Code 47-70 [facility] Work Phone: [phone] Platelets 292 10*3/mm3 Invalid Interpretation Code 150-450 [facility] Work Phone: [phone] PMV by Gonsalo 11.5 fL Invalid Interpretation Code 6.2-12.0 [facility] Work Phone: [phone] RDW SD 42.7 fL Invalid Interpretation Code 35.1-43.9 [facility] Work Phone: [phone] WBC (Leukocytes) 7.0 10*3/uL Invalid Interpretation Code 4.4-11.0 [facility] Work Phone: [phone] Lab Report: [facility] 12-[facility]-2016 Alanine aminotransferase (ALT) 34 U/L Invalid Interpretation Code 12-78 [facility] Work Phone: [phone] Albumin 3.4 g/dL Invalid Interpretation Code 3.4-5.0 [facility] Work Phone: [phone] Albumin/Globulin Ratio 0.9 {ratio} Invalid Interpretation Code 0.9-2.4 [facility] Work Phone: [phone] Alkaline phosphatase (ALP) 131 U/L High 45-117 [facility] Work Phone: [phone] Anion gap 7 mmol/L Invalid Interpretation Code 5-15 [facility] Work Phone: [phone] Aspartate aminotransferase (AST) 20 U/L Invalid Interpretation Code 15-37 [facility] Work Phone: [phone] Bilirubin (total) 0.10 mg/dL Low 0.20-1.00 [facility] Work Phone: [phone] BUN/Creatinine Ratio 17.5 RATIO Invalid Interpretation Code 10-20 [facility] Work Phone: [phone] Calcium 9.4 mg/dL Invalid Interpretation Code 8.5-10.1 [facility] Work Phone: [phone] Chloride 102 mmol/L Invalid Interpretation Code 98-107 [facility] Work Phone: [phone] CO2 31.0 mmol/L Invalid Interpretation Code 21.0-32.0 [facility] Work Phone: [phone] Creatinine 47.85 mL/min Invalid Interpretation Code [facility] Work Phone: [phone] Creatinine 0.63 mg/dL Invalid Interpretation Code 0.55-1.02 [facility] Work Phone: [phone] eGFR (non-black) 121 mL/min/{1.73_m2} Invalid Interpretation Code >60 [facility] Work Phone: [phone] eGFR (non-black) 100 mL/min/{1.73_m2} Invalid Interpretation Code >60 [facility] Work Phone: [phone] Globulin 3.7 g/dL High 2.3-3.5 [facility] Work Phone: [phone] Glucose mass conc 85 mg/dL Invalid Interpretation Code 70-110 [facility] Work Phone: [phone] Potassium molar conc 3.8 mmol/L Invalid Interpretation Code 3.5-5.1 [facility] Work Phone: [phone] Protein 7.1 g/dL Invalid Interpretation Code 6.4-8.2 [facility] Work Phone: [phone] Sodium 140 mmol/L Invalid Interpretation Code 136-145 [facility] Work Phone: [phone] Urea nitrogen 11 mg/dL Invalid Interpretation Code 7-18 [facility] Work Phone: [phone] Replaced Document: Prealbumi non 11-16-2016 Prealbumin 19.3 mg/dL Low 20.0-40.0 [facility] Work Phone: [phone] Lab Report: Hemoglobin A1con 10-11-2016 Hemoglobin A1c/Hemoglobin.tota l mass fraction (Bld) 6.0 % Invalid Interpretation Code 4.2-6.3 [facility] Work Phone: [phone] Vital Signs Date Time Vital Sign Value Performing Clinician Eva benavides 12-25-2016 08:51-0400 BMI (Body Mass Index) 23.43 kg/m2 Jamar Leon MD [facility] Work Phone: 12-25-2016 08:51-0400 Body Temperature 97.7 [degF] Jamar Leon MD [facility] Work Phone: 12-25-2016 08:51-0400 BP Diastolic 89 mm[Hg] Jamar Leon MD [facility] Work Phone: 12-25-2016 08:51-0400 BP Systolic 152 mm[Hg] Jamar Leon MD [facility] Work Phone: 12-25-2016 08:51-0400 BSA (Body Surface Area) 1.54 m2 Jamar Leon MD [facility] Work Phone: 12-25-2016 08:51-0400 Height 154.94 cm Jamar Leon MD [facility] Work Phone: 12-25-2016 08:51-0400 Pulse (Heart Rate) 80 /min Jamar Leon MD [facility] Work Phone: 12-25-2016 08:51-0400 Respiratory Rate 16 /min Jamar Leon MD [facility] Work Phone: 12-25-2016 08:51-0400 Weight 56.25 kg [facility] Work Phone: Encounters Encounter Date Encounter Type Care Provider Facility Start: 04-28-2023 ambulatory Aimee Jain MA [facility] [place] Comment on above: Population Health Na vigation Outreach (Med adherence) Start: 05-22-2022 ambulatory Agnieszka Bethea [facility] Work Phone: [facility] Comment on above: Allied Health Visit (Medication adherence outreach) Start: 04-16-2017 End: 04-16-2017 Ambulatory DANGELO YUAN [facility] Procedures Date Procedure Procedure Detail Performing Clinician [...] screening Weston Tobar MD Work Phone: Start: 08-30-2016 End: 09-10-2016 Lipid 1996 panel - Serum or Plasma Weston Tobar MD Work Phone: Start: 11-30-2015 Colonoscopy Agnieszka Traci [facility] Work Phone: Plan of Treatment Date Care Activity Detail Author Start: 02-24-2023 Advance Directive Discussion Advance Directive Discussion [facility] Start: 02-24-2023 Depression Assessment Depression Assessment [facility] Start: 10-25-2022 Influenza vaccination [facility] Start: 02-24-2022 ADVANCE DIRECTIVE DISCUSSION ADVANCE DIRECTIVE DISCUSSION [facility] Start: 02-24-2022 DEPRESSION ASSESSMENT DEPRESSION ASSESSMENT [facility] Start: 09-10-2021 LIPID SCREEN LIPID SCREEN [facility] Start: 08-30-2021 Lipid panel Lipid Screening [facility] Start: 11-29-2020 Colonoscopy COLONOSCOPY [facility] Start: 11-29-2020 COLORECTAL CANCER SCREENING COLORECTAL CANCER SCREENING [facility] Start: 11-29-2020 Screening for malignant neoplasm of colon [facility] Start: 06-03-2017 DIABETES SCREEN DIABETES SCREEN [facility] Start: 06-03-2017 Diabetes Screening Diabetes Screening [facility] Start: 12-27-2016 End: 12-27-2016 Appointment Appointment [facility] Work Phone: Start: 12-25-2016 End: 12-25-2016 Follow Up Appt Other Follow Up Appt Other [facility] Work Phone: Start: 12-25-2016 End: 12-25-2016 Appointment Appointment [facility] Work Phone: Start: 12-11-2016 End: 12-25-2016 Follow Up Appt 2 weeks Follow Up Appt 2 weeks [facility] Work Phone: Start: 12-06-2016 End: 12-12-2016 Cytp slides c/v mnl scr under phys Pap Smear [facility] Work Phone: Start: 12-06-2016 End: 12-12-2016 Follow Up Appt 3 months Follow Up Appt 3 months [facility] Work Phone: Start: 12-04-2016 End: 12-25-2016 Follow up Appt 1 week Follow up Appt 1 week [facility] Work Phone: Start: 11-28-2016 End: 12-25-2016 Follow up Appt 1 week Follow up Appt 1 week [facility] Work Phone: Start: 11-22-2016 End: 11-22-2016 Oncology Referral Oncology Referral [facility], [address], [place], [address] [facility] Work Phone: Start: 11-01-2016 End: 11-06-2016 Follow Up Appt Other Follow Up Appt Other [facility] Work Phone: Start: 11-01-2016 End: 11-01-2016 Us exam, breast(s) US Breast(s) [facility] Work Phone: Start: 10-18-2016 End: 11-17-2016 *CDIF - Clostridium Diff. Toxin Stool *CDIF - Clostridium Diff. Toxin Stool [facility] Work Phone: Start: 10-18-2016 End: 11-01-2016 Follow Up Appt Other Follow Up Appt Other [facility] Work Phone: Start: 10-11-2016 End: 10-15-2016 Bx breast w/device 1st lesion ultrasound guid Biopsy, breast, with ultrasound guidance [facility] Work Phone: Start: 10-11-2016 End: 10-15-2016 Follow Up Appt Other Follow Up Appt Other [facility] Work Phone: Start: 09-27-2016 End: 09-30-2016 Bx breast w/device 1st lesion ultrasound guid Bx Breast, device placement, US guidance [facility] Work Phone: Start: 09-27-2016 End: 09-30-2016 Follow Up Appt Other Follow Up Appt Other [facility] Work Phone: Start: 09-13-2016 End: 09-16-2016 Follow Up after Imaging/labs Follow Up after Imaging/labs [facility] Work Phone: Start: 09-13-2016 End: 09-13-2016 Mammogram, one breast Mammogram, Diagnositic Unilateral [facility] Work Phone: Start: 09-13-2016 End: 09-13-2016 Us exam, breast(s) US Breast(s) [facility] Work Phone: Start: 08-30-2016 End: 09-10-2016 *CBC with Differential *CBC with Differential [facility] Work Phone: Start: 08-30-2016 End: 09-10-2016 *CMP Complete Metabolic Panel *CMP Complete Metabolic Panel [facility] Work Phone: Start: 08-30-2016 End: 09-10-2016 Follow Up Appt 3 months Follow Up Appt 3 months [facility] Work Phone: Start: 08-30-2016 End: 09-10-2016 Hemoglobin A1c/Hemoglobin.total mass fraction (Bld) *HgA1C [facility] Work Phone: Start: 08-30-2016 End: 09-10-2016 Lipid panel [AGGREGATE] *Lipid Profile [facility] Work Phone: Start: 08-30-2016 End: 09-10-2016 Mammogram, screening Mammogram, Screening, both breasts [facility] Work Phone: Start: 2014 BONE DENSITY BONE DENSITY [facility] Start: 2014 Screening for osteoporosis Bone Density Screening [facility] Start: 2009 RSV Vaccine (1 - 1-dose 60+ series) RSV Vaccine (1 - 1-dose 60+ series) [facility] Start: 1999 SHINGRIX VACCINE (1 of 2) SHINGRIX VACCINE (1 of 2) [facility] Start: 1994 COLOGUARD (FIT-DNA) COLOGUARD (FIT-DNA) [facility] Start: [address] COLONOGRAPHY [facility] Start: 1994 FECAL OCCULT BLOOD FECAL OCCULT BLOOD [facility] Start: 1994 Screening for malignant neoplasm of colon [facility] Start: 1994 SIGMOIDOSCOPY SIGMOIDOSCOPY [facility] Start: 1989 Mammography MAMMOGRAM [facility] Start: 1989 Screening for malignant neoplasm of breast Mammogram Screening [facility] Start: 02-03-1968 Urine microalbumin profile [facility] Start: 1967 HEPATITIS C SCREENING HEPATITIS C SCREENING [facility] Start: 1967 Hepatitis C screening Hepatitis C Screening [facility] Start: 1955 PNEUMOCOCCAL: 65+ (1 - PCV) PNEUMOCOCCAL: 65+ (1 - PCV) [facility] Start: 1949 COVID-19 VACCINE (#1) COVID-19 VACCINE (#1) [facility] Patient Education Medications [facility] Work Phone: Immunizations Immunization Date Immunization Notes Care Provider Fa flex 12-22-2019 influenza virus vacc ine, unspecified formulation Aimee Jain MA [facility] Payers Date Payer Category Payer Medicare MEDICARE MEDICAR E A AND B [id number] 2014-Present [phone] [address] [address] [place] [address] Medicare [id number] Medicare [id number] Social History Date Type Detail Facility Start: 04-16-2017 Tobacco smoking stat us SDIS Smokes tobacco daily [facility] History of tobacco use Cigarette Smoker [facility] Start: 04-16-2017 End: 01-30-2020 Cigarettes smoked current (pack per day) - Reported 0.5 [facility] Start: 04-16-2017 Tobacco use and exposure Smoke less tobacco non-user [facility] Start: 04-16-2017 Alcohol intake Current non-dr instructor physical education of alcohol (finding) [facility] Start: 11-30-2015 Alcohol Comment rarely [facility] Start: 1950 Sex Assigned At Not on file [facility] Start: 01-13-2020 End: 01-30-2020 Tobacco use panel [facility] National Score (1-10 0), lower number is lower risk Not on file [facility] Medical Equipment Procedure Code Equipment Code Equipment Origin al Text Equipment Identifier Dates Renny Bn Co Hv 40g m - [id number] Start: 06-13-2014 Bear 4mm Oxfd Ar cm Lt Menis Kn - [id number] Start: 06-13-2014 [place] Sm Uni Tw in Peg Fem Cmnt - [id number] Start: 06-13-2014 Comp Tibtry Aa L t Medial Kn - [id number] Start: 06-13-2014 Clinical Note 04-28-2023 Note Date & Type Note Facility 04-28-2023 Note Patient Outreach (JOSE [facility]NA[facility]) LUIS F FRANCES ([id number]) 1950 F Date Time Provider Department 04/28/23 AIMEE JAINV During your visit today, we recorded the following information about you: Aimee Jain MA 04/28/2023 11:14 AM Signed POPULATION HEALTH NAVIGATION OUTREACH Action/FYI April 28, 2023 Per patient , Rosuvastatin was changed to 90 day supply. Not due until 06/02/2023. Patient would like to not be called further for refills due Aimee Jain MA Reason for Outreach Med Adherence Patient Contacted: Spoke to patient/parent/or legal guardian Patient identified by name and date of : Yes Med Adherence actions taken: Patient Med Adherence responses: Patient would like to take care of managing medication(s) on their own Medication prescribed by outside provider/specialty Not due for fill yet Navigation Signature: Aimee Jain MA April 28, 2023 11:12 AM Allergies As of Date: 04/28/2023 Noted Allergy Reaction ANTIHISTAMINES - ALKYLAMINE 03/02/2007 14 - Other: See Comments Comments: Pounding headache Date Reviewed: 04/16/2017 Reviewed by: Dangelo Yuan - Fully Assessed Reason for Visit: Population Health Navigation Outreach [3910] Cmt: Med adherence Prescriptions as of 04/28/2023 - acetaminophen (TYLENOL) 500 mg tablet Take 2 tablets by mouth every 8 hours. Problem List As Of Date 04/28/2023 Noted Resolved OA (osteoarthritis) of knee [M17.9] 06/03/2014 Osteoarthrosis, unspecified whether generalized*06/13/2014 06/13/2014 Encounter Status:Closed by AIMEE JAIN on 04/28/23 [facility] Progress note 04-28-2023 Note Date & Type Note Facility 04-28-2023 Note HNO ID: [id number] Author: AIMEE JAIN MA Service: ? Author Type: Strategy Director Type: Progress Notes Filed: 04/28/2023 11:14 Note Text: POPULATION HEALTH NAVIGATION OUTREACH Action/April 28, 2023 Per patient , Rosuvastatin was changed to 90 day supply. Not due until 06/02/2023. Patient would like to not be called further for refills due Aimee Jain MA Reason for Outreach Med Adherence Patient Contacted: Spoke to patient/parent/or legal guardian Patient identified by name and date of : Yes Med Adherence actions taken: Patient Med Adherence responses: Patient would like to take care of managing medication(s) on their own Medication prescribed by outside provider/specialty Not due for fill yet Navigation Signature: Aimee Jain MA April 28, 2023 11:[address] [facility] History of Present illness Narrative 04-28-2023 Aimee Jain MA - 04/28/2023 11:11 AM EST Note Date & Type Note Facility 04-28-2023 History of Presen t illness Narrative POPULATION HEALTH NAVIGATION OUTREACH Action/April 28, 2023 Per patient , Rosuvastatin was changed to 90 day supply. Not due until 06/02/2023. Patient would like to not be called further for refills due Aimee Jain MA Reason for Outreach Med Adherence Patient Contacted: Spoke to patient/parent/or legal guardian Patient identified by name and date of : Yes Med Adherence actions taken: Patient Med Adherence responses: Patient would like to take care of managing medication(s) on their own Medication prescribed by outside provider/specialty Not due for fill yet Navigation Signature: Aimee Jain MA April 28, 2023 11:12 AM documented in this encounter [facility] Progress note 05-22-2022 Note Date & Type Note Facility 05-22-2022 Note HNO ID: [id number] Author: Do Mireles Service: ? Author Type: ? Type: Progress Notes Filed: 05/22/2022 3:36 PM Note Text: Attestation signed by Agnieszka Smith RPh at 05/27/2022 11:47 AM Approving student documentation and outreach below. Agnieszka Smith RPh PharmD BCPS Luis F Colladomami is identified through a medication adherence outreach initiative based on pharmacy claims data from [employer] (insurer) for Non-insulin DM medication(s). Patient is [...] report Do Mireles PharmD candidate [address] [facility] History of Present illness Narrative 05-22-2022 Do Mireles - 05/22/2022 3:34 PM EDT Note Date & Type Note Facility 05-22-2022 History of Presen t illness Narrative Luis F Frances is identified through a medication adherence outreach initiative based on pharmacy claims data from [employer] (insurer) for Non-insulin DM medication(s). Patient is [...] Mireles PharmD candidate 2022 Associated attestation - Agnieszka Smith RPh - 05/27/2022 11:47 AM EDT Approving student documentation and outreach below. Agnieszka Smith RPh PharmLisa BCPS documented in this encounter [facility] Clinical Note 05-22-2022 Note Date & Type Note Facility 05-22-2022 Note [facility] LUIS F FRANCES ([id number]) 1950 F Date Time Provider Department 05/22/22 [facility] During your visit today, we recorded the following information about you: Do Mireles 05/22/2022 3:36 PM Attested Attestation signed by Agnieszak Smith [facility] at 05/27/2022 11:47 AM Approving student documentation and outreach below. Agnieszka [facility] PharmD BCPS Luis F Colladomami is identified through a medication adherence outreach initiative based on pharmacy claims data from [employer] (insurer) for Non-insulin DM medication(s). Patient is [...] discontinued per out of network report Do Mireles, Toña candidate 2022 Allergies As of Date: 05/22/2022 Noted Allergy Reaction ANTIHISTAMINES - ALKYLAMINE 03/02/2007 14 - Other: See Comments Comments: Pounding headache Date Reviewed: 04/16/2017 Reviewed by: Dangelo Yuan - Fully Assessed Reason for Visit: Allied Health Visit [5] Cmt: Medication adherence outreach Prescriptions as of 05/27/2022 - acetaminophen (TYLENOL) 500 mg tablet Take 2 tablets by mouth every 8 hours. Problem List As Of Date 05/22/2022 Noted Resolved OA (osteoarthritis) of knee [M17.9] 06/03/2014 Osteoarthrosis, unspecified whether generalized*06/13/2014 06/13/2014 Encounter Status:Closed by AGNIESZKA SMITH on 05/27/22 [facility] History of Past illness Narrative 06-13-2014 Note Date & Type Note Facility 06-13-2014 History of Past i llness Narrative Problem Noted Date Resolved Date Osteoarthrosis, unspecified whether generalized or localized, lower leg 06/13/2014 06/13/2014 documented as of this encounter (statuses as of 05/27/2022) [facility] History of Past illness Narrative 06-13-2014 Note Date & Type Note Facility 06-13-2014 History of Past i llness Narrative Problem Noted Date Diagnosed Date Resolved Date Osteoarthrosis, unspecified whether generalized or localized, lower leg 06/13/201405/26 documented as of this encounter (statuses as of 04/28/2023) [facility] Summary Purpose Family History No Family History Records FoundNo Family History Records FoundNo Family History Records Found Advance Directives No Advanced Directives Records FoundNo Advanced Directives Records FoundNo Advanced Directives Records Found Additional Source Comments INFORMATION SOURCE (unrecogn ized section and content) DATE CREATED AUTHOR 08/15/2017 [facility] DATE CREATED AUTHOR AUTHOR'S ORGANIZ ATION 08/15/[address] [facility] DATE CREATED AUTHOR AUTHOR'S ORGANIZ ATION 04/29/2023 [facility] Source Comments (unrecognize d section and content) In the event this informatio n is protected by the Federal Confidentiality of Alcohol and Drug Abuse Patient Records regulations: The Federal rules restrict any use of the information to criminally investigate or prosecute any alcohol or drug abuse patient.[facility] the event this information is protected by the Federal Confidentiality of Alcohol and Drug Abuse Patient Records regulations: The Federal rules restrict any use of the information to criminally investigate or prosecute any alcohol or drug abuse patient.[facility] Reason for Visit (unrecogniz ed section and content) Reason Onset Date Comments Allied Health Visit 05/22/2022 Medication a dherence outreach Reason Onset Date Comments Population Health Navigation Outreach 04/28/2023 Med adherence Care Teams (unrecognized sec tion and content) On Site Manager Relationship Specialty Start Date End Date Weston Tobar MD [address] [facility] [place], [place] [phone] PCP - General Internal Medicine 12/20/19 On Site Manager Relationship Specialty Start Date End Date Weston Tobar MD [address] [place], [place] [phone] PCP - General Internal Medicine 12/20/19 FOR RECORDS PERTAINING TO PATIENTS WHO ARE [...] BE BASED ON THE PRIMARY CLINICAL RECORDS. [place] [facility]. provides no warranty or guarantee of the accuracy or completeness of information in this document.
== END | disposition home or self-care (01) ==
LOC: CT 14:02
PROVIDERS: PCP Internal Medicine; Referring Provider Internal Medicine Hematology & Oncology; Visit Provider Internal Medicine Hematology & Oncology
DX: C50.111 Malignant neoplasm of central portion of right female breast (principal); C78.7 Secondary malignant neoplasm of liver and intrahepatic bile duct; Z17.0 Estrogen receptor positive status [ER+]
CPT/HCPCS: 71260; 74160; Q9967; A4216

== ENCOUNTER → 2024-01-13 | Outpatient (CLI) | payer MEDICARE, SELFPAY ==
[2023-03-14 09:40] VITALS: BMI 24.4
--- NOTE | 2024-01-13 12:45 | ECHOD_ITS ---
Reason For Study: Palpitations Procedure This was a 2D Doppler, Color Flow transthoracic echocardiogram. Myocardial strain analysis was performed in this exam to aid in the assessment of cardiac function. Exam performed in department. Left Ventricle Normal size and thickness. The global longitudinal strain = -22.8 % (normal). The left ventricular ejection fraction is 65 %. Normal diastology for age. Right Ventricle Normal right ventricle. Atria There is mild biatrial dilatation. Mitral Valve Trivial mitral valve insufficiency. Tricuspid Valve Mild tricuspid valve insufficiency. Right ventricular systolic pressure estimated to be 56 mmHg. Aortic Valve Mild diffuse aortic valve calcification. Mild aortic stenosis. Mean aortic valve gradient 9 mmHg. Pulmonic Valve The pulmonic valve is not well visualized. Great Vessels Normal sized aortic root. Pericardium/Pleural No pericardial effusion. MMode/2D Measurements & Calculations LVIDd: 4.1 cm IVSd: 0.93 cm LVOT diam: 1.7 cm LVIDs: 2.2 cm LVPWd: 0.88 cm LVOT area: 2.2 cm2 RVDd: 2.9 cm FS: 44.9 % asc Aorta Diam: 2.9 cm LAV(MOD-bp): 33.9 ml LVAd ap4: 18.0 cm2 LAV(MOD-bp) Indexed: 21.5 ml/m2 LVLd ap4: 6.7 cm LAV(MOD-sp2): 31.7 ml EDV(MOD-sp4): 40.4 ml LAV(MOD-sp4): 35.7 ml EDV(sp4-el): 41.5 ml LVAs ap4: 7.8 cm2 LVLs ap4: 5.2 cm ESV(MOD-sp4): 10.0 ml ESV(sp4-el): 10.0 ml EF(MOD-sp4): 75.2 % EF(sp4-el): 75.9 % SV(MOD-sp4): 30.4 ml SV(sp4-el): 31.5 ml LA A4 area: 14.8 cm2 SI(MOD-sp4): 19.2 ml/m2 LA dimension(2D): 3.7 cm RA A4 area: 11.1 cm2 TAPSE: 2.3 cm Time Measurements MV dec time: 0.23 sec Doppler Measurements & Calculations MV E max rob: 105.7 cm/sec Lat Peak E' Rob: 12.3 cm/sec Med Peak E' Rob: 8.5 cm/sec MV A max rob: 119.5 cm/sec E/E' lat: 8.6 E/E' med: 12.5 MV E/A: 0.88 MV V2 max: 144.6 cm/sec Ao V2 max: 187.5 cm/sec MV max P.4 mmHg MV dec slope: 464.2 cm/sec2 Ao max P.1 mmHg MV V2 mean: 90.2 cm/sec Ao V2 mean: 143.1 cm/sec MV mean P.6 mmHg Ao mean P.9 mmHg MV V2 VTI: 35.5 cm Ao V2 VTI: 36.1 cm AV (velocity ratio): 0.79 MVA(VTI): 1.8 cm2 SHRUTHI(I,D): 1.8 cm2 SHRUTHI(V,D): 1.7 cm2 LV V1 max: 144.0 cm/sec SV(LVOT): 63.9 ml PA V2 max: 173.2 cm/sec LV V1 max P.3 mmHg PA V2 mean: 116.7 cm/sec LV V1 mean P.7 mmHg LV V1 mean: 101.9 cm/sec LV V1 VTI: 28.7 cm TR max rob: 358.6 cm/sec TR max P.4 mmHg ECHO/Echo Complete Interpretation Summary The left ventricular ejection fraction is 65 %. The global longitudinal strain = -22.8 % (normal). Mild tricuspid valve insufficiency. Right ventricular systolic pressure estimat ed to be 56 mmHg. Mild aortic stenosis. Ordering Physician: Matt Ashford Referring Physician: Weston Tobar Performed By: Bernie Friedman, RDCS, RVT
--- NOTE | 2024-01-13 12:45 | CDU_ITS ---
Reason For Study: CAROTID ARTERY DISEASE Rt. Velocities/BP Lt. Velocities/BP Prox CCA 130.8/24.8 cm/sec. Prox CCA 145.4/17.5 cm/sec. Mid CCA 134.4/19.4 cm/sec. Mid CCA 139.9/24.8 cm/sec. Dist CCA 94.2/19.4 cm/sec. Dist CCA 127.1/13.9 cm/sec. Prox ICA 81.5/12.1 cm/sec. Prox ICA 114.9/14.2 cm/sec. Mid ICA 123.5/21.2 cm/sec. Mid ICA 73.2/10.6 cm/sec. Dist ICA 69.5/15.5 cm/sec. Dist ICA 80.6/14.2 cm/sec. Rt. ICA/CCA = 123.5/134.4=0.9. Lt. ICA/CCA = 114.9/139.9=0.8. Prox ECA 147.2/8.4 cm/sec. Prox ECA 134.4/12.1 cm/sec. Rt. Vert. 56.0/14.2 cm/sec. Lt. Vert. 53.4/11.7 cm/sec. Right Extracranial There is homogeneous, smooth atherosclerotic plaque noted in the right common carotid artery. There is heterogeneous, irregular atherosclerotic plaque noted in the right internal carotid artery. There is heterogeneous, irregular atherosclerotic plaque noted in the right external carotid artery. Antegrade flow is noted in the right vertebral artery. Left Extracranial There is no significant atherosclerotic plaque noted in the left common carotid artery. There is heterogeneous, irregular atherosclerotic plaque noted in the left internal carotid artery. There is heterogeneous, irregular atherosclerotic plaque noted in the left external carotid artery. Antegrade flow is noted in the left vertebral artery. Procedure Carotid Duplex 23553. This is a Carotid Duplex examination using B-mode, color flow and specral Doppler. The study was technically difficult. D/T PT has a cold, deep respirations, sniffles and coughing. VL/Carotid Duplex Ultrasound Interpretation Summary Mild (<50%) stenosis right extracranial internal carotid. Mild (<50%) stenosis left extracranial internal carotid. Patent and antegrade vertebrals bilaterally. Ordering Physician: Matt Ashford Referring Physician: Weston Tobar Performed By: Slime Muro, OSCAR, RVT
== END | disposition home or self-care (01) ==
LOC: CVS 12:44
PROVIDERS: PCP Internal Medicine; Referring Provider Internal Medicine Cardiovascular Disease; Visit Provider Internal Medicine Cardiovascular Disease
DX: I65.23 Occlusion and stenosis of bilateral carotid arteries (principal); I82.C19 Acute embolism and thrombosis of unspecified internal jugular vein; I77.9 Disorder of arteries and arterioles, unspecified; R00.2 Palpitations
CPT/HCPCS: 93306; 93880

== ENCOUNTER → 2024-03-08 | Outpatient (CLI) | payer MEDICARE, SELFPAY ==
[2023-03-14 09:40] VITALS: BMI 24.4
--- NOTE | 2024-03-08 14:01 | VDLE_ITS ---
Reason For Study: Bilateral leg swelling RIGHT LEFT GSV is normal. GSV is normal. CFV is compressible, spontaneous, phasic, CFV is compressible, spontaneous, phasic, competent and demonstrates normal competent, and demonstrates normal augmentation. augmentation. FV is compressible, spontaneous, phasic, FV is compressible, spontaneous, phasic, competent and demonstrates normal competent and demonstrates normal augmentation. augmentation. POP V is compressible, spontaneous, phasic, POP V is compressible, spontaneous, phasic, competent and demonstrates normal competent and demonstrates normal augmentation. augmentation. T/P Trunk is compressible. T/P Trunk is compressible. PTV is compressible. PTV is compressible. RT PerV is compressible. LT PerV is compressible. Procedure This is a venous duplex using B-mode, color flow and spectral Doppler. Exam performed in department. A preliminary report was called and/or faxed to [facility]. VL/Venous Duplex US - Phan Extrem Interpretation Summary Deep veins of the bilateral lower extremities are patent and compressible segme ntally. There is no evidence of bilateral lower extremity deep vein thrombosis. The bilateral great saphenous veins appear patent and compressible segmentally. Ordering Physician: Tonie Enrique Referring Physician: Weston Tobar Performed By: Alysa Cantor RVT
== END | disposition home or self-care (01) ==
LOC: CVS 14:00
PROVIDERS: PCP Internal Medicine; Referring Provider Nurse Practitioner Family; Visit Provider Nurse Practitioner Family
DX: M79.89 Other specified soft tissue disorders (principal); Z91.89 Other specified personal risk factors, not elsewhere classified

== ENCOUNTER → 2024-03-11 | Outpatient (CLI) | payer MEDICARE, SELFPAY ==
[2023-03-14 09:40] VITALS: BMI 24.4
--- NOTE | 2024-03-11 15:39 | CT_ITS ---
STUDY: CT CHEST T ABDOMEN WITH CONTRAST REASON FOR EXAM: Female, 74 years old. F/U METS BREAST CANCER RADIATION DOSAGE (If Supplied By Facility): CTDIvol = ( 8.17 ) mGy, DLP = ( 482.4 ) mGycm TECHNIQUE: Transaxial imaging was performed following intravenous administration of IV 100mL Isovue-370. Multiplanar coronal and sagittal images were reformatted. Individualized dose optimization techniques were used for this CT. COMPARISON: Comparison is made with prior study dated December 15, 2023. FINDINGS: CHEST A right-sided portacatheter is seen with the tip in the superior vena cava. Surgical clips are seen in the right axilla. Patient is status post right mastectomy. The lungs are normal. There is no demonstrated pleural abnormality. There are calcifications of the coronary arteries. Normal mediastinum. Normal hilar regions. Normal unenhanced pulmonary arteries. There is atherosclerotic calcification of the aortic arch. There are degenerative changes of the thoracic spine. ABDOMEN Hepatomegaly. Since prior study, there has been an increase in size of the previously seen hypodense masses in the liver. There also has been an increase in the number of metastatic deposits. There are surgical clips in the gallbladder fossa consistent with a prior cholecystectomy. Stable 9 mm hypodensity in the inferior aspect of the spleen. Normal pancreas. Normal bilateral adrenal glands. Normal right kidney. Normal left kidney. Normal visualized stomach. Normal small intestine. Normal colon. The appendix is visualized and appears normal. Normal abdominal aorta. Normal inferior vena cava. Normal retroperitoneum. Normal abdominal wall. There are diffuse degenerative changes of the visualized lumbar spine. CT/CT Chest AND Abd W/ Contrast IMPRESSION: Progressive increase in the number and size of previously seen metastatic deposits throughout the liver. The remainder of the examination is unchanged. Electronically Signed: Channing Villanueva MD at 9:37 EST ,
[2024-03-11] MEDS: 0.9 % NaCl (Sterile) Posiflush 10 mL IV (15:50)
[2024-03-11] MEDS: 0.9% Saline Lock 10 ML Syringe IV (16:00)
== END | disposition home or self-care (01) ==
LOC: CT 15:39
PROVIDERS: PCP Internal Medicine; Referring Provider Internal Medicine Hematology & Oncology; Visit Provider Internal Medicine Hematology & Oncology
DX: C50.919 Malignant neoplasm of unspecified site of unspecified female breast (principal); C78.7 Secondary malignant neoplasm of liver and intrahepatic bile duct
CPT/HCPCS: 71260; 74160; Q9967; A4216

== ENCOUNTER → 2024-06-10 | Outpatient (CLI) | payer MEDICARE, SELFPAY ==
[2024-04-15 12:01] VITALS: BMI 24.4
[2024-06-10 08:26] VITALS: BP 127/59; PULSE 67; RESP 18; TEMP 36.7; O2SAT 97
[2024-06-10 09:00] LABS: International Normalized Ratio 1.2
[2024-06-10 09:01] LABS: Partial Thromboplast Time 26.8 Seconds (24.1-36.2)
[2024-06-10] MEDS: Lidocaine 2% (20 ml mdv) 20 ML Vial INFILT (09:15)
[2024-06-10 09:18] VITALS: BP 133/68; PULSE 66; RESP 18; O2SAT 95
[2024-06-10 09:30] VITALS: BP 138/70; PULSE 65; RESP 18; O2SAT 98
[2024-06-10 09:32] VITALS: BP 139/70; PULSE 69; RESP 18; TEMP 36.6; O2SAT 96
--- NOTE | 2024-06-10 09:36 | PCM.OPRPT ---
Problems Associated Problem List Diagnoses (1) Abdominal ascites: Multi Select Codes Radiology Radiology US Procedures: 18080 Paracentesis Operative Report (Standard) Operative Information Date of Procedure: 06/10/24 Pre-Operative Diagnosis: Abdominal ascites Post-Operative Diagnosis: Abdominal ascites Surgery/Procedure Performed: Ultrasound-guided paracentesis global transportation manager: No Type of Anesthesia: Local Procedure Start Time: 09:10 Procedure Stop Time: 09:32 Select all DRAINS/GRAFTS/IMPLANTS that apply: None Estimated Blood Loss: 0 Specimen collected: No Description of surgery: PROCEDURE: Ultrasound guided paracentesis ORDERING PROVIDER: Tonie Enrique NP INDICATION: Female, 74 years old. Abdominal ascites. PROVIDER: BRIT Barakat TECHNIQUE: The risks, benefits, and alternatives to the procedure were explained to the patient. The specific risks of bleeding, infection, and damage to bowel were detailed and accepted. Witnessed informed consent was obtained. Coagulation studies were reviewed preprocedure with Dr. Villanueva. The abdomen was ultrasonographically surveyed. An appropriate pocket of fluid was identified in the right upper quadrant of the abdomen. The skin was prepped with chlorhexidine and sterile field established. 2% lidocaine was used for local anesthetic. Using ultrasound guidance, the peritoneal cavity was accessed with a 5-Korean paracentesis needle/catheter system. The trocar was removed. A total of 2450 ml of clear yellow colored fluid was removed from the peritoneal cavity. The catheter was removed and a sterile dressing was applied. The procedure was well tolerated. There were no immediate complications. The procedure was proctored by interventional radiologist Dr. Villanueva. IMPRESSION: Successful ultrasound guided paracentesis with right upper quadrant access site. Surgical Findings: None Complications Complications: No
== END | disposition home or self-care (01) ==
LOC: US 07:53
PROVIDERS: PCP Internal Medicine; Referring Provider Nurse Practitioner Family; Visit Provider Nurse Practitioner Family
DX: R14.0 Abdominal distension (gaseous) (principal); Z91.89 Other specified personal risk factors, not elsewhere classified
CPT/HCPCS: 49083; 85610; 85730

== ENCOUNTER → 2024-06-11 | Outpatient (CLI) | payer MEDICARE, SELFPAY ==
[2024-04-15 12:01] VITALS: BMI 24.4
--- NOTE | 2024-06-11 13:21 | VDLE_ITS ---
Reason For Study Reason For Study: BLE Swelling RIGHT LEFT GSV is normal. GSV is normal. CFV is compressible, spontaneous, phasic, competent CFV is compressible, spontaneous, phasic, competent, and demonstrates normal augmentation. and demonstrates normal augmentation. FV is compressible, spontaneous, phasic, competent FV is compressible, spontaneous, phasic, competent and demonstrates normal augmentation. and demonstrates normal augmentation. POP V is compressible, spontaneous, phasic, competent POP V is compressible, spontaneous, phasic, competent and demonstrates normal augmentation. and demonstrates normal augmentation. T/P Trunk is compressible. T/P Trunk is compressible. PTV is compressible. PTV is compressible. RT PerV is compressible. LT PerV is compressible. Procedure This is a venous duplex using B-mode, color flow and spectral Doppler. Exam performed in department. The exam was diagnostic. The study was technically difficult. A preliminary report was called and/or faxed to [facility] Oncology. VL/Venous Duplex US - Phan Extrem Interpretation Summary Deep veins of the lower extremities are bilaterally patent and compressible seg mentally. There is no evidence of deep vein thrombosis on either side. Valvular competence appears intact within the p roximal deep venous systems bilaterally. The great saphenous veins appear bilaterally patent and compressible segmentall y. Ordering Physician: Tonie Enrique Referring Physician: Weston Tobar Performed By: Alvarez Graves, RVT
== END | disposition home or self-care (01) ==
LOC: CVS 13:20
PROVIDERS: PCP Internal Medicine; Referring Provider Nurse Practitioner Family; Visit Provider Nurse Practitioner Family
DX: R60.0 Localized edema (principal); M79.89 Other specified soft tissue disorders; Z91.89 Other specified personal risk factors, not elsewhere classified
CPT/HCPCS: 93970

== ENCOUNTER → 2024-06-16 | Outpatient (CLI) | payer MEDICARE, SELFPAY ==
[2024-04-15 12:01] VITALS: BMI 24.4
--- NOTE | 2024-06-16 11:32 | CT_ITS ---
PROCEDURE: CT CHEST AND ABD W/ CONTRAST 06/16/2024 REASON FOR EXAM: IV CONTRAST; M BREAST CANCER TECHNIQUE: Chest and abdomen CT with intravenous contrast. Coronal and Sagittal reconstruction series were provided. One or more dose reduction techniques were used (e.g., Automated exposure control, adjustment of the mA and/or kV according to patient size, use of iterative reconstruction technique. PATIENT PREPARATION: Per protocol ORAL CONTRAST TYPE: None. AMOUNT: mL COMPARISON: None. FINDINGS: CT CHEST: Hardware: Right internal jugular chest port. Status post right mastectomy and axillary lymph node dissection. Lymph nodes: No mediastinal, hilar, or axillary lymphadenopathy. Heart and Vasculature: Normal heart size. No pericardial effusion. Thoracic aorta and pulmonary arteries are unremarkable. Lungs and Airways: The lungs are normally expanded and clear. Pleura: No pleural effusion. CT ABDOMEN: Liver: Innumerable peripherally enhancing lesions of decreased attenuation throughout the liver consistent with metastatic disease. The largest lesion is in the anterior segment the right lobe of the liver and measures 8.5 cm. Gallbladder: Surgically absent. Spleen: Normal size. Pancreas: Normal size without evidence of mass surrounding inflammation or ductal dilation. Adrenals: Unremarkable. Kidneys: Normal renal sizes. No hydronephrosis. Bowel: Unremarkable. Lymph nodes: Unremarkable. Vasculature: Mild diffuse atherosclerotic calcifications are noted. Peritoneum / Retroperitoneum: Moderate amount of ascites. Edema of the subcutaneous fat consistent with anasarca. Bones: Chronic mild wedge compression fracture of T12. Displaced fracture of the sacrum at the level of S4. CT/CT Chest AND Abd W/ Contrast IMPRESSION: Coronary artery calcification (CAC) is was not evaluable No active disease of the chest. Innumerable hepatic metastases. Moderate amount of ascites. Anasarca. Reading Location: [id number]
--- NOTE | 2024-06-16 11:58 | NURSING ---
this rn called and talked to nurse jani at [facility], , office to inform that pt c/o pain 10/03 to her abd 10/03, abd distended. pt also c/o bilat leg swelling and that bilat legs feel numb. jani states she will send a ,essage to the
== END | disposition home or self-care (01) ==
LOC: CVS 11:30 → CT 11:32
PROVIDERS: PCP Internal Medicine; Referring Provider Nurse Practitioner Family; Visit Provider Nurse Practitioner Family
DX: C50.919 Malignant neoplasm of unspecified site of unspecified female breast (principal); C78.7 Secondary malignant neoplasm of liver and intrahepatic bile duct
CPT/HCPCS: 71260; 74160; Q9967; A4216

== ENCOUNTER 2024-06-17 22:48 | Observation (INO) | payer MEDICARE, SELFPAY ==
[2024-04-15 12:01] VITALS: BMI 24.4
[2024-06-17] VITALS (7 sets, daily range): BP systolic 148–157; BP diastolic 79–85; PULSE 81–84; RESP 17–23; TEMP 36.7–36.8; O2SAT 92–95; BMI 31.4
--- NOTE | 2024-06-17 23:18 | CT_ITS ---
PROCEDURE: CTA CHEST W/WO CONTRAST 06/18/2024 REASON FOR EXAM: PE TECHNIQUE: CTA imaging of the chest with intravenous contrast. Coronal and Sagittal reconstruction series were provided. Maximum intensity projection (MIPs) Volume rendering and CONTRAST: 100 cc Isovue 370 IV One or more dose reduction techniques were used (e.g., Automated exposure control, adjustment of the mA and/or kV according to patient size, use of iterative reconstruction technique). RADIATION DOSE SUMMARY: CTDlvol: 8.95 mGy DLP: 271.15 mGycm COMPARISON: 06/16/2024 FINDINGS: No evidence of filling defect to suggest pulmonary embolism. Thoracic aorta appears within limits. Heavy appearing proximal and mid LAD coronary calcification. No pericardial or pleural effusion. Right port. Status post right mastectomy and right axillary surgical clips. The central airways appear patent. 6 mm noncalcified subpleural pulmonary nodule above the dome of the left hemidiaphragm for example axial 94. The lungs otherwise appear clear. T12 superior endplate compression deformity again noted. CT/CTA Chest W/WO Contrast IMPRESSION: No evidence of filling defect to suggest pulmonary embolism. Heavy appearing proximal and mid LAD coronary calcification. 6 mm noncalcified subpleural pulmonary nodule above the dome of the left hemidi aphragm for example axial 94. Reading Location: [id number]
--- NOTE | 2024-06-17 23:19 | CT_ITS ---
PROCEDURE: ABDOMEN/PELVIS W IV CONT ONLY 06/18/2024 REASON FOR EXAM: ASCITES TECHNIQUE: Abdomen and pelvis CT with intravenous contrast. Coronal and Sagittal reconstruction series were provided. PATIENT PREPARATION: Per protocol ORAL CONTRAST TYPE: None. CONTRAST: 100 cc Isovue 370 IV One or more dose reduction techniques were used (e.g., Automated exposure control, adjustment of the mA and/or kV according to patient size, use of iterative reconstruction technique. RADIATION DOSE SUMMARY: CTDlvol: 17.42 mGy DLP: 800.55 mGycm COMPARISON: 06/16/2024 FINDINGS: 6 mm noncalcified subpleural pulmonary nodule above the left hemidiaphragm at the left base. Multifocal numerous varying in size and shape hepatic lesions are again noted as previously reported consistent with metastatic disease. The right hepatic lobe again appears small with hypertrophy of the left lobe suggested. Status post cholecystectomy. A moderate amount of abdominopelvic free fluid is again noted, not significantly changed. Overall the degree of anasarca appears increased since the prior study. Nonspecific small low-density focus within the spleen axial 25 again noted. The pancreas, adrenal glands and kidneys appear within limits. Status post cholecystectomy. Aortoiliac atherosclerotic changes again noted. No adenopathy identified. The ovaries/adnexa uterus and bladder appear within limits. T12 compression deformity and mild anterolisthesis L4 on L5 again noted. No bowel dilation or free air. CT/Abdomen/Pelvis W IV Cont ONLY IMPRESSION: A moderate amount of abdominopelvic free fluid is again noted, not significantl y changed. Overall the degree of anasarca appears increased since the prior study. 6 mm noncalcified subpleural pulmonary nodule above the left hemidiaphragm at t he left base. Multifocal numerous varying in size and shape hepatic lesions are again noted a s previously reported consistent with metastatic disease. Reading Location: [id number]
--- NOTE | 2024-06-17 23:28 | ED.VIS.DYS ---
HPI History of Present Illness Chief Complaint: Shortness of Breath Narrative Narrative: Chief complaint and HPI: Shortness of breath and ascites. 73-year-old female with metastatic breast cancer to the liver on oral chemotherapy, DM, HTN, HLD presents for evaluation of shortness of breath and ascites. History taken by patient, medical record, son. Patient states that she has recently developed abdominal ascites. On chart review she had a ultrasound-guided paracentesis on 06/10/2024. At that time they removed 2.45 L. Patient states over the last several days she has been having increased shortness of breath and fluid accumulation. Triage note states chest pain. Patient states that she is not having any chest pain. Squad states that she had irregular heart rate and route. Patient denies any fever, chills, nausea, vomiting, dysuria, diarrhea, constipation, abdominal pain. Review of systems: See HPI Medications: As listed on the chart Allergies: As listed on the chart PFSH: Per chart Vital signs: As listed on the chart. Reviewed. Physical exam: Gen: A&O x3, NAD Head: Normocephalic, atraumatic Eyes: No sclera icterus, conjunctiva clear ENT: Moist mucous membranes Neck: Trachea midline CV: RRR, no murmurs, + 2 bilateral peripheral edema, + port without signs of infection Resp: Lungs CTA BL but diminished in the bilateral bases, no w/r/c GI: Abd soft, distended and taut secondary to ascites, non-tender, no r/r/g Musc: Full ROM, no deformity Skin: Warm, dry Neuro: Alert, oriented, grossly intact, sensation intact Psych: Cooperative, appropriate mood and affect [facility] Medical History Edema of both lower legs At risk for bleeding Neuropathy Encounter for education At high risk for deep venous thrombosis Swelling of both lower extremities Encounter for chemotherapy management Diarrhea due to drug Bradycardia Folliculitis Bronchitis Malaise and fatigue Incomplete bladder emptying Cancer Diabetes Chronic pain Abdominal bloating Encounter for chemotherapy management Wears hearing aid Legally blind Wears dentures Anxiety History of steroid therapy DVT (deep venous thrombosis) Restless legs Dietary restriction History of edema History of stress test Metastasis to liver Recurrent breast cancer Hyperlipidemia Flu vaccine need Scalp itch Screening for thyroid disorder History of tobacco use Blurry vision Headache Obesity (BMI 30-39.9) Type 2 diabetes mellitus Hyperglycemia Venous insufficiency of both lower extremities Encounter for screening for malignant neoplasm of lung in former smoker who quit in past 15 years with 30 pack year history or greater Back pain Health care maintenance Intertriginous dermatitis associated with moisture Low back pain Macular degeneration Chest pain Hypertension Macular degeneration Neck pain Acute internal jugular vein thrombosis Cough Invasive ductal carcinoma of right breast Encounter for adjustment or management of vascular access device Breast cancer, right Hemorrhoids Rheumatoid arthritis GERD (gastroesophageal reflux disease) IBS (irritable bowel syndrome) Back problem Arthritis Home Medications ?Medication ?Instructions ?Recorded ?Last Taken ?Type aspirin 81 mg tablet,delayed 81 mg PO DAILY [facility] 05/29/18 01/27/23 History release Iris Vision Goggles #1 ea 08/11/20 Unknown Rx nystatin 100,000 unit/gram topical 1 applic topical BID PRN 05/08/21 01/27/23 Rx powder Dermatitis #60 grams latanoprost 0.005 % eye drops 1 drp EACH EYE DAILY 06/24/22 01/27/23 History alendronate 70 mg tablet 70 mg PO QWEEK #14 tabs 11/27/22 03/03/23 Rx Handicap Placard #1 ea 01/07/23 Unknown Rx Handicap Placard #1 ea 01/07/23 Unknown Rx lidocaine-prilocaine 2.5 %-2.5 % 1 applic topical ONCE PRN port 03/31/23 Unknown Rx topical cream access 30 days #30 grams nebulizers #1 ea 06/30/23 Unknown Rx escitalopram oxalate 5 mg tablet 5 mg PO QDAY Anxiety #90 tabs 11/04/23 Unknown Rx rosuvastatin 10 mg tablet 10 mg PO DAILY #90 tabs 11/04/23 Unknown Rx metoprolol succinate 50 mg 50 mg PO DAILY #90 tabs 12/11/23 Unknown Rx tablet,extended release 24 hr cholecalciferol (vitamin D3) 125 125 mcg PO DAILY #90 caps 01/26/24 Unknown Rx mcg (5,000 unit) capsule blood sugar diagnostic (OneTouch #100 ea 02/17/24 Unknown Rx Verio test strips) lancets 33 gauge (OneTouch Delica #100 ea 02/17/24 Unknown Rx Plus Lancet) blood-glucose meter (OneTouch #1 ea 03/09/24 Unknown Rx Verio Flex Meter) esomeprazole magnesium 20 mg 20 mg PO QDAY #30 caps 03/31/24 Unknown Rx capsule,delayed release hydrocodone 10 mg-acetaminophen 1 tab PO Q4 PRN pain 03/31/24 Unknown History 325 mg tablet capecitabine 500 mg tablet 1,500 mg PO BID 04/08/24 Unknown History gabapentin 100 mg capsule 100 mg PO BID #60 caps 04/22/24 Unknown Rx losartan 50 mg tablet 50 mg PO DAILY #90 tabs 05/21/24 Unknown Rx potassium chloride 10 mEq 10 meq PO DAILY #90 tabs 05/21/24 Unknown Rx tablet,extended release ondansetron HCl 4 mg tablet 4 mg PO Q8H PRN PRN nausea and 06/17/24 Unknown History vomiting oxycodone 5 mg tablet 5 mg PO Q6H PRN PRN pain 06/17/24 Unknown History sennosides 8.6 mg tablet (Katt-trinidad) 8.6 mg PO BID PRN PRN constipation 06/17/24 Unknown History Allergy/AdvReac Type Severity Reaction Status Date / Time Antihistamines - Ethanolamine Allergy Severe TACHYCARDIA Verified 06/17/24 22:52 Antihistamines - Allergy Severe TACHYCARDIA Verified 06/17/24 22:52 Ethylenediamine Antihistamines - Piperazine Allergy Severe TACHYCARDIA Verified 06/17/24 22:52 Antihistamines - Piperidine Allergy Severe TACHYCARDIA Verified 06/17/24 22:52 diphenhydramine (From Allergy Severe TACHYCARDIA Verified 06/17/24 22:52 Benadryl) Antihistamines - Alkylamine AdvReac Mild TACHYCARDIA Verified 06/17/24 22:52 Family History Mother Heart disease Diabetes Arthritis Father Heart disease Surgical History Hx of right knee surgery H/O mastectomy History of total right knee replacement (TKR) History of reconstruction of right breast History of lymph node dissection of right axilla History of right total mastectomy History of total left knee replacement History of cholecystectomy History of appendectomy H/O section Social History Smoking Status: Former smoker quit date: 04/04/20 Tobacco: How many years used: 55 Electronic Cigarette Use: not used second hand exposure: Yes quit status: has quit before alcohol intake: former substance use type: does not use caffeine: Yes (3/week) Type: tea what type of physical activity do you participate in: none and walking frequency: does not exercise seatbelt use: always EXAM Physical Exam Const Vital Signs: 06/17/24 22:49 06/17/24 23:04 06/17/24 23:15 Temperature 98.3 F Temperature Source Oral Pulse Rate 84 81 81 Respiratory Rate 17 23 H 19 H Respiratory Effort Respiratory Depth Respiratory Pattern Blood Pressure 157/83 H 153/85 H Blood Pressure Mean 107 106 Pulse Ox 95 92 95 Oxygen Delivery Method Room Air 06/17/24 23:21 06/17/24 23:30 06/17/24 23:45 Temperature Temperature Source Pulse Rate 83 82 Respiratory Rate 20 H 23 H Respiratory Effort Normal Non-Labored Respiratory Depth Normal Respiratory Pattern Normal Blood Pressure 148/84 H 154/79 H Blood Pressure Mean 102 101 Pulse Ox 94 95 Oxygen Delivery Method Room Air 06/17/24 23:58 06/18/24 00:00 06/18/24 00:15 Temperature 98.1 F Temperature Source Oral Pulse Rate 81 82 Respiratory Rate 18 19 H Respiratory Effort Respiratory Depth Respiratory Pattern Blood Pressure 154/79 H 135/78 H 136/64 H Blood Pressure Mean 104 94 84 Pulse Ox 93 95 Oxygen Delivery Method Room Air 06/18/24 00:20 06/18/24 00:30 06/18/24 00:45 Temperature Temperature Source Pulse Rate 83 85 Respiratory Rate 18 21 H Respiratory Effort Respiratory Depth Respiratory Pattern Blood Pressure 129/65 H 125/71 H Blood Pressure Mean 84 87 Pulse Ox 95 94 Oxygen Delivery Method 06/18/24 01:00 06/18/24 01:00 06/18/24 01:00 Temperature 97.4 F L Temperature Source Oral Pulse Rate 83 83 Respiratory Rate 23 H 19 H Respiratory Effort Respiratory Depth Respiratory Pattern Blood Pressure 126/70 H 126/70 H Blood Pressure Mean 88 76 Pulse Ox 96 94 Oxygen Delivery Method Room Air 06/18/24 01:15 06/18/24 01:15 06/18/24 01:30 Temperature 97.8 F Temperature Source Pulse Rate 81 82 81 Respiratory Rate 18 19 H 18 Respiratory Effort Respiratory Depth Respiratory Pattern Blood Pressure 137/72 H 137/72 H Blood Pressure Mean 93 88 Pulse Ox 95 94 93 Oxygen Delivery Method 06/18/24 01:45 06/18/24 01:57 06/18/24 02:00 Temperature 97.5 F L Temperature Source Oral Pulse Rate 82 79 80 Respiratory Rate 24 H 22 H 20 H Respiratory Effort Respiratory Depth Respiratory Pattern Blood Pressure 137/72 H 128/75 H Blood Pressure Mean 93 89 Pulse Ox 93 94 94 Oxygen Delivery Method Room Air MDM MDM MDM Narrative Medical decision making narrative: 73-year-old female with metastatic breast cancer to the liver on oral chemotherapy, DM, HTN, HLD presents for evaluation of shortness of breath and ascites. Patient had a recent paracentesis earlier this month. Differential diagnosis includes but is not limited to cirrhosis, ascites, CHF, PE. Suspect less likely ACS or viral illness. Laboratory workup ordered including CT abdomen and pelvis as well as CT chest given patient has high risk for PE with history of blood clot and cancer not on blood thinners. Patient declined COVID, flu, RSV testing. EKG reviewed see below. CBC without leukocytosis. Patient has baseline anemia and thrombocytopenia. INR unremarkable. BMP relatively unremarkable, no significant electrolyte abnormality or MANN. Patient has AST transaminitis. She has a history of this in the past. However this is uptrending to 123 from 88. Patient has baseline elevated alkaline phosphatase however uptrending to 235 from 165. Troponin unremarkable. BNP unremarkable. Albumin low at 2.8. This is likely playing into her generalized ascites. CTA of the chest negative for PE. Patient has a 6 mm noncalcified subpleural pulmonary nodule. This will need to be worked up further. She has heavy appearing proximal and mid LAD coronary calcification. CT abdomen pelvis shows ascites with moderate amount of abdominal pelvic free fluid. Anasarca increased from prior study. Patient's metastatic cancer visualized. Lasix ordered to help with the anasarca. Patient will warrant admission for continued diuresis and paracentesis. Patient was updated of all results and confirmed understanding the plan. Patient was discussed with the hospitalist service who accepted admission. EKG: Interpreted by me/EM physician: EKG shows normal sinus rhythm without any ST elevation. Heart rate 79. Impression: 1. Abdominal ascites 2. Anasarca 3. History of metastatic breast cancer to the liver on oral chemotherapy 4. Chronic anemia 5. Chronic thrombocytopenia 6. Transaminitis 5. Hypoalbuminemia Lab Data Labs: Laboratory Results - last 24 hr 06/17/24 23:06 WBC 6.2 RBC 3.59 L Hgb 11.7 L Hct 34.5 L MCV 96.1 MCH 32.6 H MCHC 33.9 RDW Std Deviation 84.5 H RDW Coeff of Awa 24.3 H Plt Count 128 L MPV 11.1 Immature Gran % (Auto) 0.300 Neut % (Auto) 69.6 Lymph % (Auto) 16.3 L [place] % (Auto) 12.7 H Eos % (Auto) 0.6 Baso % (Auto) 0.5 Absolute Neuts (auto) 4.3 Absolute Lymphs (auto) 1.02 Nucleated RBC % 0 Differential Comment SCANNED Anisocytosis RARE PT 15.9 H INR 1.3 APTT 27.0 Sodium 135 Potassium 3.7 Chloride 99 Carbon Dioxide 24.5 Anion Gap 11 BUN 13 Creatinine 0.52 L Estim Creat Clear Calc 52.31 Est GFR (MDRD) Non-Af 97 BUN/Creatinine Ratio 24.4 H Glucose 118 H Calcium 8.8 Total Bilirubin 1.06 Direct Bilirubin 0.70 H AST 123 H ALT 26 Alkaline Phosphatase 235 H Troponin T High Sens 13 NT pro BNP II 199 Total Protein 5.6 L Albumin 2.8 L Globulin 2.9 Radiography Diagnostic Testing: Clinical Impression(s) from Imaging Studies Chest CTA 06/17/24 23:18 IMPRESSION: No evidence of filling defect to suggest pulmonary embolism. Heavy appearing proximal and mid LAD coronary calcification. 6 mm noncalcified subpleural pulmonary nodule above the dome of the left hemidiaphragm for example axial 94. Reading Location: [facility] Abdomen/Pelvis CT 06/17/24 23:19 IMPRESSION: A moderate amount of abdominopelvic free fluid is again noted, not significantly changed. Overall the degree of anasarca appears increased since the prior study. 6 mm noncalcified subpleural pulmonary nodule above the left hemidiaphragm at the left base. Multifocal numerous varying in size and shape hepatic lesions are again noted as previously reported consistent with metastatic disease. Reading Location: [facility] Discharge Plan Triage Chief Complaint: Shortness of Breath ED Provider: Rick Chatman Dx/Rx/DC Orders Prescriptions: No Action (DME) Iris Vision Goggles See Rx Instructions .Route .MEDSUPPLY Qty: 1 0RF Rx Instructions: As directed nystatin 100,000 unit/gram powder 1 applic TOPICAL BID PRN (Reason: Dermatitis) Qty: 60 3RF Protocol: *Topical Application Instructions APPLICATION INSTRUCTIONS: Apply to affected area alendronate 70 mg tablet 70 mg PO QWEEK Qty: 14 3RF Patient Comments: MONDAYS (DME) Handicap Placard See Rx Instructions .ROUTE .MEDSUPPLY Qty: 1 0RF Rx Instructions: As directed, length of time 3 years (DME) Handicap Placard See Rx Instructions .ROUTE .MEDSUPPLY Qty: 1 0RF Rx Instructions: As directed, length of time 3 years lidocaine-prilocaine 2.5-2.5 % cream 1 applic topical ONCE PRN (Reason: port access) 30 Days Qty: 30 2RF metoprolol succinate 50 mg tablet extended release 24 hr 50 mg PO DAILY Qty: 90 3RF gabapentin 100 mg capsule 100 mg PO BID Qty: 60 2RF Rx Instructions: Start by QHS x 1 week then increase to BID hydrocodone-acetaminophen 10-325 mg tablet 1 tab PO Q4 PRN (Reason: pain) esomeprazole magnesium 20 mg capsule,delayed release(DR/EC) 20 mg PO QDAY Qty: 30 1RF capecitabine 500 mg tablet 1,500 mg PO BID Patient Comments: [NO ORIGINAL SIG] Rx Instructions: 2 weeks on; 1 week off aspirin 81 MG tablet,delayed release (DR/EC) 81 mg PO DAILY latanoprost 0.005 % drops 1 drp EACH EYE DAILY Patient Comments: Apply 1 drop in both eyes daily ondansetron HCl 4 mg tablet 4 mg PO Q8H PRN PRN (Reason: nausea and vomiting) oxycodone 5 mg tablet 5 mg PO Q6H PRN PRN (Reason: pain) sennosides [Katt-trin[place]] 8.6 mg tablet 8.6 mg PO BID PRN PRN (Reason: constipation) (DME) nebulizers Misc See Rx Instructions .Route Qty: 1 0RF Rx Instructions: As directed escitalopram oxalate 5 mg tablet 5 mg PO QDAY Qty: 90 2RF rosuvastatin 10 mg tablet 10 mg PO DAILY Qty: 90 1RF cholecalciferol (vitamin D3) 125 mcg (5,000 unit) capsule 125 mcg PO DAILY Qty: 90 2RF (DME) OneTouch Verio test strips Strip See Rx Instructions .Route Qty: 100 3RF Rx Instructions: As directed (DME) lancets [OneTouch Delica Plus Lancet] 33 gauge [facility] [place] See Rx Instructions .Route Qty: 100 3RF Rx Instructions: As directed to check blood glucose twice daily (DME) blood-glucose meter [OneTouch Verio Flex meter] [facility] [place] See Rx Instructions .Route Qty: 1 0RF Rx Instructions: As directed losartan 50 mg tablet 50 mg PO DAILY Qty: 90 3RF potassium chloride 10 mEq tablet extended release 10 meq PO DAILY Qty: 90 1RF Primary Care Provider: Weston Tobar Referrals: Weston Tobar MD [Primary Care Provider] - Print Language: Sami
[2024-06-17 23:35] LABS: Absolute Lymphocyte Count 1.02 X10^3/uL (0.83-4.51); Absolute Neutrophil Count 4.3 X10^3/uL (2.0-7.7); Basophil# 0.03 X10^3/uL; Basophil% 0.5 % (0-1); Eosinophil# 0.04 X10^3/uL; Eosinophils% 0.6 % (0-5); Hematocrit 34.5 % (37-47); Hemoglobin 11.7 g/dL (12.0-15.0); Lymphocyte # 1.02 X10^3/ul (0.83-4.51); Lymphocyte % 16.3 % (19-41); Mean Corp Hgb Conc 33.9 g/dL (32-36); Mean Corpuscular Hgb 32.6 pg (27.0-32.0); Mean Corpuscular Volume 96.1 fL (81-99); Mean Platelet Vol. 11.1 fl (6.2-12.0); Monocyte# 0.79 X10^3/uL; Monocyte% 12.7 % (0-10); NRBC Flagged by Analyzer 0 % (0-5); Neutrophil # 4.34 X10^3/uL (2.7-7.7); Neutrophil % 69.6 % (47-70); POSITIVE MORPHOLOGY YES; Platelet Count 128 K/mm3 (150-450); RBC Distribution Width CV 24.3 % (11.6-14.6); RBC Distribution Width SD 84.5 fl (35.1-43.9); Red Blood Count 3.59 M/mm3 (4.2-5.4); White Blood Count 6.2 K/mm3 (4.4-11.0)
[2024-06-17 23:43] LABS: Differential Indicated SCAN CRITERIA MET
[2024-06-17 23:53] LABS: International Normalized Ratio 1.3; Prothrombin Time (Protime)PT. 15.9 SECONDS (11.7-14.9)
[2024-06-18] VITALS (21 sets, daily range): BP systolic 125–142; BP diastolic 52–80; PULSE 68–87; RESP 16–24; TEMP 36.3–36.9; O2SAT 92–96; BMI 30.4
[2024-06-18 00:02] LABS: AST(SGOT) 123 U/L (<=31); Alanine Aminotransfer ALT/SGPT 26 U/L (<=34); Albumin, Serum 2.8 g/dL (3.4-4.8); Alkaline Phosphatase 235 U/L (35-104); Anion Gap 11 (5-15); BUN 13 mg/dL (4-19); BUN/Creat Ratio 24.4 RATIO (10-20); Calcium,Total 8.8 mg/dL (7.6-11.0); Carbon Dioxide 24.5 mmol/L (21.0-32.0); Chloride 99 mmol/L (98-108); Creatinine, Serum 0.52 mg/dL (0.70-1.20); EST Glomerular Filtration Rate 97 (>60); Estimated Creatinine Clearance 52.31 ml/min (50-250); Globulin 2.9 g/dL (2.2-4.2); Glucose 118 mg/dL (70-99); Potassium 3.7 mmol/L (3.3-5.1); Pro- Brain NATRIURETIC PEPTIDE 199 pg/mL (<=1800); Protein, Total 5.6 g/dL (5.9-8.4); Sodium Level 135 mmol/L (133-145); Total Bilirubin 1.06 mg/dL (0.00-1.30)
[2024-06-18 00:20] LABS: Troponin T High Sensitivity 13 ng/L (<=14)
[2024-06-18 00:46] LABS: Anisocytosis RARE; Differential Comment SCANNED
[2024-06-18] MEDS: Morphine 2 MG/ML Syringe IV ×2 (01:14→04:43)
[2024-06-18] MEDS: Furosemide 40 MG/4 ML Vial IV (01:55)
--- NOTE | 2024-06-18 02:11 | PCM.HP.STD ---
[facility] - General General Date of Admission: 06/18/24 Date of Service: 06/18/24 Chief Complaint: SOB and Worsening Ascites. HPI Narrative LUIS F FERREIRA, is a 74 F with a past medical history of essential hypertension; on metoprolol and losartan, hyperlipidemia; on rosuvastatin, obesity; with BMI of 31.4 this admission, glaucoma; on latanoprost eyedrops, GERD; on esomeprazole, depression; on escitalopram, osteoporosis; on alendronate and history of metastatic breast cancer s/p Right mastectomy; with subsequent cirrhosis and ascites on oral chemotherapy with capecitabine and recent ultrasound-guided paracentesis on June 10, 2024 with ~2.45 L of fluid removed at that time who presents to [facility] ER complaining of shortness of breath and worsening ascites. Ms. Ferreira reports her symptoms began shortly after her recent paracentesis was completed with a gradual reaccumulation of fluid in her abdomen and associated shortness of breath so she activated EMS who noted an irregular heartbeat. She admits to ~2+ bilateral peripheral edema. She denies associated chest pain, fever, chills, nausea, vomiting, diarrhea, abdominal pain, headache or rash. In the ER she was noted to have CTA of the chest with IV contrast that revealed no evidence of filling defect to suggest PE with heavy appearing proximal mid LAD coronary calcification and ~6 mm noncalcified subpleural pulmonary nodule above the dome of the Left diaphragm with CT scan of the abdomen pelvis that revealed a moderate amount of abdominopelvic free fluid not significantly changed from previous with the overall degree of anasarca appearing increased since the prior study with multifocal numerous varying in size and shape hepatic lesions again noted previously reported to be consistent with metastatic disease. She was then admitted to the general medical floor with telemetric monitoring under observation status for ongoing care for a stay that is expected to be less than 2 midnights. [facility] Medical History Edema of both lower legs At risk for bleeding Neuropathy Encounter for education At high risk for deep venous thrombosis Swelling of both lower extremities Encounter for chemotherapy management Diarrhea due to drug Bradycardia Folliculitis Bronchitis Malaise and fatigue Incomplete bladder emptying Cancer Diabetes Chronic pain Abdominal bloating Encounter for chemotherapy management Wears hearing aid Legally blind Wears dentures Anxiety History of steroid therapy DVT (deep venous thrombosis) Restless legs Dietary restriction History of edema History of stress test Metastasis to liver Recurrent breast cancer Hyperlipidemia Flu vaccine need Scalp itch Screening for thyroid disorder History of tobacco use Blurry vision Headache Obesity (BMI 30-39.9) Type 2 diabetes mellitus Hyperglycemia Venous insufficiency of both lower extremities Encounter for screening for malignant neoplasm of lung in former smoker who quit in past 15 years with 30 pack year history or greater Back pain Health care maintenance Intertriginous dermatitis associated with moisture Low back pain Macular degeneration Chest pain Hypertension Macular degeneration Neck pain Acute internal jugular vein thrombosis Cough Invasive ductal carcinoma of right breast Encounter for adjustment or management of vascular access device Breast cancer, right Hemorrhoids Rheumatoid arthritis GERD (gastroesophageal reflux disease) IBS (irritable bowel syndrome) Back problem Arthritis Home Medications ?Medication ?Instructions ?Recorded ?Last Taken ?Type aspirin 81 mg tablet,delayed 81 mg PO DAILY Heart Health 05/29/18 01/27/23 History release Iris Vision Goggles #1 ea 08/11/20 Unknown Rx nystatin 100,000 unit/gram topical 1 applic topical BID PRN 05/08/21 01/27/23 Rx powder Dermatitis #60 grams latanoprost 0.005 % eye drops 1 drp EACH EYE DAILY 06/24/22 01/27/23 History alendronate 70 mg tablet 70 mg PO QWEEK #14 tabs 11/27/22 03/03/23 Rx Handicap Placard #1 ea 01/07/23 Unknown Rx Handicap Placard #1 ea 01/07/23 Unknown Rx lidocaine-prilocaine 2.5 %-2.5 % 1 applic topical ONCE PRN port 03/31/23 Unknown Rx topical cream access 30 days #30 grams nebulizers #1 ea 06/30/23 Unknown Rx escitalopram oxalate 5 mg tablet 5 mg PO QDAY Anxiety #90 tabs 11/04/23 Unknown Rx rosuvastatin 10 mg tablet 10 mg PO DAILY #90 tabs 11/04/23 Unknown Rx metoprolol succinate 50 mg 50 mg PO DAILY #90 tabs 12/11/23 Unknown Rx tablet,extended release 24 hr cholecalciferol (vitamin D3) 125 125 mcg PO DAILY #90 caps 01/26/24 Unknown Rx mcg (5,000 unit) capsule blood sugar diagnostic (OneTouch #100 ea 02/17/24 Unknown Rx Verio test strips) lancets 33 gauge (OneTouch Delica #100 ea 02/17/24 Unknown Rx Plus Lancet) blood-glucose meter (OneTouch #1 ea 03/09/24 Unknown Rx Verio Flex Meter) esomeprazole magnesium 20 mg 20 mg PO QDAY #30 caps 03/31/24 Unknown Rx capsule,delayed release hydrocodone 10 mg-acetaminophen 1 tab PO Q4 PRN pain 03/31/24 Unknown History 325 mg tablet capecitabine 500 mg tablet 1,500 mg PO BID 04/08/24 Unknown History gabapentin 100 mg capsule 100 mg PO BID #60 caps 04/22/24 Unknown Rx losartan 50 mg tablet 50 mg PO DAILY #90 tabs 05/21/24 Unknown Rx potassium chloride 10 mEq 10 meq PO DAILY #90 tabs 05/21/24 Unknown Rx tablet,extended release ondansetron HCl 4 mg tablet 4 mg PO Q8H PRN PRN nausea and 06/17/24 Unknown History vomiting oxycodone 5 mg tablet 5 mg PO Q6H PRN PRN pain 06/17/24 Unknown History sennosides 8.6 mg tablet (Katt-trin[place]) 8.6 mg PO BID PRN PRN constipation 06/17/24 Unknown History Allergy/AdvReac Type Severity Reaction Status Date / Time Antihistamines - Ethanolamine Allergy Severe TACHYCARDIA Verified 06/17/24 22:52 Antihistamines - Allergy Severe TACHYCARDIA Verified 06/17/24 22:52 Ethylenediamine Antihistamines - Piperazine Allergy Severe TACHYCARDIA Verified 06/17/24 22:52 Antihistamines - Piperidine Allergy Severe TACHYCARDIA Verified 06/17/24 22:52 diphenhydramine (From Allergy Severe TACHYCARDIA Verified 06/17/24 22:52 Benadryl) Antihistamines - Alkylamine AdvReac Mild TACHYCARDIA Verified 06/17/24 22:52 Family History Mother Heart disease Diabetes Arthritis Father Heart disease Surgical History Hx of right knee surgery H/O mastectomy History of total right knee replacement (TKR) History of reconstruction of right breast History of lymph node dissection of right axilla History of right total mastectomy History of total left knee replacement History of cholecystectomy History of appendectomy H/O section Social History Smoking Status: Former smoker quit date: 04/04/20 Tobacco: How many years used: 55 Electronic Cigarette Use: not used second hand exposure: Yes quit status: has quit before alcohol intake: former substance use type: does not use caffeine: Yes (3/week) Type: tea what type of physical activity do you participate in: none and walking frequency: does not exercise seatbelt use: always ROS ROS Narrative Review of systems: Constitutional: Patient denies fever or chills. Eyes: Patient denies changes in vision or discharge from eyes. ENT: Patient denies runny nose, sore throat or ear pain. Resp: Patient admits to shortness of breath but she denies cough. CV: Patient denies chest pain, palpitations or heart racing but she does admit to lower extremity edema. GI: Patient admits to increasing abdominal girth due to ascites but she denies abdominal pain, nausea, vomiting or diarrhea. : Patient denies dysuria, hematuria or urinary frequency. MSK: Patient admits generalized weakness but she denies arthralgias or myalgias. Skin: Patient denies rash, abscess, wounds or jaundice. Psych: Patient denies symptoms of uncontrolled depression or anxiety. Neuro: Patient denies headache, paresthesias or focal neurologic deficits. Allergy: Patient denies lip swelling, tongue swelling or urticaria. Hematology: Patient denies easy bleeding or easy bruisability. Endocrinology: Patient denies polyuria, polydipsia, polyphagia or heat/cold intolerance. 14 point ROS otherwise negative save for positives noted above in HPI. Vital Signs Vital Signs Vital Signs: 06/17/24 22:49 06/17/24 23:04 06/17/24 23:15 Temperature 98.3 F Temperature Source Oral Pulse Rate 84 81 81 Respiratory Rate 17 23 H 19 H Respiratory Effort Respiratory Depth Respiratory Pattern Blood Pressure 157/83 H 153/85 H Blood Pressure Mean 107 106 Pulse Ox 95 92 95 Oxygen Delivery Method Room Air 06/17/24 23:21 06/17/24 23:30 06/17/24 23:45 Temperature Temperature Source Pulse Rate 83 82 Respiratory Rate 20 H 23 H Respiratory Effort Normal Non-Labored Respiratory Depth Normal Respiratory Pattern Normal Blood Pressure 148/84 H 154/79 H Blood Pressure Mean 102 101 Pulse Ox 94 95 Oxygen Delivery Method Room Air 06/17/24 23:58 06/18/24 00:00 06/18/24 00:15 Temperature 98.1 F Temperature Source Oral Pulse Rate 81 82 Respiratory Rate 18 19 H Respiratory Effort Respiratory Depth Respiratory Pattern Blood Pressure 154/79 H 135/78 H 136/64 H Blood Pressure Mean 104 94 84 Pulse Ox 93 95 Oxygen Delivery Method Room Air 06/18/24 00:20 06/18/24 00:30 06/18/24 00:45 Temperature Temperature Source Pulse Rate 83 85 Respiratory Rate 18 21 H Respiratory Effort Respiratory Depth Respiratory Pattern Blood Pressure 129/65 H 125/71 H Blood Pressure Mean 84 87 Pulse Ox 95 94 Oxygen Delivery Method 06/18/24 01:00 06/18/24 01:00 06/18/24 01:00 Temperature 97.4 F L Temperature Source Oral Pulse Rate 83 83 Respiratory Rate 23 H 19 H Respiratory Effort Respiratory Depth Respiratory Pattern Blood Pressure 126/70 H 126/70 H Blood Pressure Mean 88 76 Pulse Ox 96 94 Oxygen Delivery Method Room Air 06/18/24 01:15 06/18/24 01:15 06/18/24 01:30 Temperature 97.8 F Temperature Source Pulse Rate 81 82 81 Respiratory Rate 18 19 H 18 Respiratory Effort Respiratory Depth Respiratory Pattern Blood Pressure 137/72 H 137/72 H Blood Pressure Mean 93 88 Pulse Ox 95 94 93 Oxygen Delivery Method 06/18/24 01:45 06/18/24 01:57 06/18/24 02:00 Temperature 97.5 F L Temperature Source Oral Pulse Rate 82 79 80 Respiratory Rate 24 H 22 H 20 H Respiratory Effort Respiratory Depth Respiratory Pattern Blood Pressure 137/72 H 128/75 H Blood Pressure Mean 93 89 Pulse Ox 93 94 94 Oxygen Delivery Method Room Air Weight Weight: 150 lb 2.157 oz Body Mass Index (BMI) 31.4 Physical Exam Const alert, oriented x3 and no apparent distress General Appearance: cooperative HEENT normocephalic, head/scalp atraumatic, hearing grossly normal bilaterally and moist oral mucous membranes Eyes PERRL, EOMs intact bilaterally and conjunctivae normal Neck no lymphadenopathy and supple Resp Resp Narrative: Diminished breath sounds at bases. Cardio regular rate and regular rhythm GI normal to inspection, nondistended, normoactive bowel sounds, soft to palpation, non-tender and non-distended GI Narrative: Positive large ascites with fluid wave noted. Extremity Extremity Narrative: ~2+ bilateral symmetrical pitting lower extremity edema. Skin Skin Narrative: Patient has evidence of rash, abscess, wounds or jaundice. Neuro oriented x3, CN's II-XII intact bilaterally, moves all extremities and no focal motor deficits Sensorium / Orientation: awake, alert, oriented to person, oriented to place and oriented to time Speech: speech normal Psych affect normal Results Medical Records Data Attestation: I reviewed the patient's medical records Lab / Micro Data Attestation: I reviewed the patient's lab results. 06/17/24 23:06 06/17/24 23:06 Labs: Laboratory Results - last 24 hr 06/17/24 23:06: WBC 6.2, RBC 3.59 L, Hgb 11.7 L, Hct 34.5 L, MCV 96.1, MCH 32.6 H, MCHC 33.9, RDW Std Deviation 84.5 H, RDW Coeff of Awa 24.3 H, Plt Count 128 L, MPV 11.1, Immature Gran % (Auto) 0.300, Neut % (Auto) 69.6, Lymph % (Auto) 16.3 L, Gilmer % (Auto) 12.7 H, Eos % (Auto) 0.6, Baso % (Auto) 0.5, Absolute Neuts (auto) 4.3, Absolute Lymphs (auto) 1.02, Nucleated RBC % 0, Differential Comment SCANNED, Anisocytosis RARE, PT 15.9 H, INR 1.3, APTT 27.0, Sodium 135, Potassium 3.7, Chloride 99, Carbon Dioxide 24.5, Anion Gap 11, BUN 13, Creatinine 0.52 L, Estim Creat Clear Calc 52.31, Est GFR (MDRD) Non-Af 97, BUN/Creatinine Ratio 24.4 H, Glucose 118 H, Calcium 8.8, Total Bilirubin 1.06, Direct Bilirubin 0.70 H, AST 123 H, ALT 26, Alkaline Phosphatase 235 H, Troponin T High Sens 13, NT pro BNP II 199, Total Protein 5.6 L, Albumin 2.8 L, Globulin 2.9 Imaging Radiology Impression Chest CTA 06/17/24 23:18 IMPRESSION: No evidence of filling defect to suggest pulmonary embolism. Heavy appearing proximal and mid LAD coronary calcification. 6 mm noncalcified subpleural pulmonary nodule above the dome of the left hemidiaphragm for example axial 94. Reading Location: [facility] Abdomen/Pelvis CT 06/17/24 23:19 IMPRESSION: A moderate amount of abdominopelvic free fluid is again noted, not significantly changed. Overall the degree of anasarca appears increased since the prior study. 6 mm noncalcified subpleural pulmonary nodule above the left hemidiaphragm at the left base. Multifocal numerous varying in size and shape hepatic lesions are again noted as previously reported consistent with metastatic disease. Reading Location: [facility] Assessment & Plan Assessment/Plan (1) Abdominal ascites: QUALIFIERS: Ascites type: malignant Qualified Code(s): R18.0 - Malignant ascites (2) Edema of both lower legs: (3) Malignant neoplasm of breast metastatic to liver: (4) Obesity (BMI 30.0-34.9): PLAN: Plan 1. Reaccumulation of ascites with associated shortness of breath and ~2+ lower extremity edema in the setting of previously known metastatic breast cancer; s/p Right mastectomy with subsequent cirrhosis and ascites on oral chemotherapy with capecitabine and recent ultrasound-guided paracentesis on June 10, 2024 with ~2.45 L of fluid removed at that time - Admit to general medical floor with telemetry monitoring under observation status. Keep n.p.o. for therapeutic ultrasound-guided thoracentesis in interventional radiology in a.m. with the patient pretreated with IV albumin to allow for paracentesis without hypotension. This elderly patient is apparently determined to pillai her cancer valiantly, but unfortunately she seems to be losing the pillai and would likely benefit from palliative care or hospice consultation in a.m. on rounds with help appreciated in advance. 2. Obesity; with BMI of 31.4 this admission complicating #1 - Weight loss will be recommended but is unlikely. Check TSH. This complicates her case may hamper recovery. 3. Essential hypertension; on metoprolol and losartan - Hold scheduled antihypertensives until paracentesis been completed. 4. Hyperlipidemia; on rosuvastatin - Continue statin as before. 5. Glaucoma; on latanoprost eyedrops - Maintain current therapy. 6. GERD; on esomeprazole - Resume PPI. 7. Depression; on escitalopram - Continue escitalopram as previous. 8. Osteoporosis; on alendronate - Restart this agent after discharge. 9. DVT prophylaxis - SCD's only with impending paracentesis. Total time: Approximately (but not less than) 70 minutes. Charges/Coding Visit Charges OBSV E&M: 78891 Observ/hosp same date L2
[2024-06-18 03:55] LABS: Magnesium 1.9 mg/dL (1.5-2.2)
[2024-06-18] MEDS: Albumin Human 25% (100 mL) 25 GM/100 ML BAG IV (04:18)
[2024-06-18] MEDS: 0.9% Saline Lock 10 ML Syringe IV ×2 (04:43→14:05)
[2024-06-18 07:32] LABS: Absolute Lymphocyte Count 1.03 X10^3/uL (0.83-4.51); Absolute Neutrophil Count 3.5 X10^3/uL (2.0-7.7); Basophil# 0.02 X10^3/uL; Basophil% 0.4 % (0-1); Eosinophil# 0.06 X10^3/uL; Eosinophils% 1.1 % (0-5); Hematocrit 31.8 % (37-47); Hemoglobin 10.9 g/dL (12.0-15.0); Lymphocyte # 1.03 X10^3/ul (0.83-4.51); Lymphocyte % 19.5 % (19-41); Mean Corp Hgb Conc 34.3 g/dL (32-36); Mean Corpuscular Hgb 32.7 pg (27.0-32.0); Mean Corpuscular Volume 95.5 fL (81-99); Mean Platelet Vol. 10.6 fl (6.2-12.0); Monocyte# 0.68 X10^3/uL; Monocyte% 12.9 % (0-10); NRBC Flagged by Analyzer 0 % (0-5); Neutrophil # 3.47 X10^3/uL (2.7-7.7); Neutrophil % 65.7 % (47-70); POSITIVE MORPHOLOGY YES; Platelet Count 125 K/mm3 (150-450); RBC Distribution Width CV 24.4 % (11.6-14.6); Red Blood Count 3.33 M/mm3 (4.2-5.4); White Blood Count 5.3 K/mm3 (4.4-11.0)
[2024-06-18 07:39] LABS: Differential Indicated SCAN CRITERIA MET
[2024-06-18 08:05] LABS: Anisocytosis 1+
[2024-06-18 08:18] LABS: ALB/GLOB Ratio 1.3 RATIO (0.9-2.4); AST(SGOT) 109 U/L (<=31); Alanine Aminotransfer ALT/SGPT 25 U/L (<=34); Albumin, Serum 3.4 g/dL (3.4-4.8); Alkaline Phosphatase 210 U/L (35-104); Anion Gap 14 (5-15); BUN 12 mg/dL (4-19); BUN/Creat Ratio 20.8 RATIO (10-20); Calcium,Total 9.1 mg/dL (7.6-11.0); Carbon Dioxide 26.1 mmol/L (21.0-32.0); Chloride 99 mmol/L (98-108); Creatinine, Serum 0.56 mg/dL (0.70-1.20); EST Glomerular Filtration Rate 95 (>60); Estimated Creatinine Clearance 51.59 ml/min (50-250); Globulin 2.6 g/dL (2.2-4.2); Glucose 93 mg/dL (70-99); Phosphorus 3.3 mg/dL (2.7-4.5); Potassium 3.4 mmol/L (3.3-5.1); Sodium Level 139 mmol/L (133-145); Total Bilirubin 1.29 mg/dL (0.00-1.30)
[2024-06-18] MEDS: CAPECITABINE 500 MG TABLET 1500 MG PO (08:28)
[2024-06-18] MEDS: Morphine 4 MG/ML Syringe IM (09:49)
[2024-06-18] MEDS: Ondansetron ODT 4 MG Tablet PO (09:49)
--- NOTE | 2024-06-18 10:32 | CASEMGMT ---
Social Work SW met with pt and spouse and introduced self and role of SW. SW broached topic of hospice and palliative care with pt. Pt confirms that physician spoke to her regarding hospice and pt states that she is not ready for hospice at this time. SW then explained palliative medicine option. Pt states she currently has palliative medicine. She is uncertain of the name of the company that she utilizes but does state it is not [facility]. Pt and spouse denied any other discharge needs at this time. Physician osmany. ANASTASIA Stacy
--- NOTE | 2024-06-18 11:40 | NURSING ---
pt to radiology for procedure via bed
--- NOTE | 2024-06-18 12:03 | CASEMGMT ---
CLINTON BEE updated by hospitalist that patient will be discharging and is requesting to ask patient's active palliative team to follow-up with patient. CLINTON BEE reviewed chart and patient is established with [facility]. CLINTON BEE emailed [facility] with update and hospitalist request. CM will continue to follow this patient and plan for a safe discharge.
[2024-06-18] MEDS: Lidocaine 2% (20 ml mdv) 20 ML Vial INFILT (12:10)
--- NOTE | 2024-06-18 12:14 | PCM.DC.SUM ---
Providers Date of Admission: 06/18/24 Date of Discharge: 06/18/24 Primary Care Physician: Dr. 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 Code(s): C50.919 - Malignant neoplasm of unspecified site of unspecified female breast; C78.7 - Secondary malignant neoplasm of liver and intrahepatic bile duct (4) Obesity (BMI 30.0-34.9): Status: Acute Code(s): E66.811 - Obesity, class 1 Medications at Discharge Home Medications aspirin 81 mg tablet,delayed release 81 mg PO DAILY Heart Health 05/29/18 Iris Vision Goggles #1 ea 08/11/20 nystatin 100,000 unit/gram topical powder 1 applic topical BID PRN Dermatitis #60 grams 05/08/21 latanoprost 0.005 % eye drops 1 drp EACH EYE DAILY 06/24/22 alendronate 70 mg tablet 70 mg PO QWEEK #14 tabs 11/27/22 Handicap Placard #1 ea 01/07/23 Handicap Placard #1 ea 01/07/23 lidocaine-prilocaine 2.5 %-2.5 % topical cream 1 applic topical ONCE PRN port access 30 days #30 grams 03/31/23 nebulizers #1 ea 06/30/23 escitalopram oxalate 5 mg tablet 5 mg PO QDAY Anxiety #90 tabs 11/04/23 rosuvastatin 10 mg tablet 10 mg PO DAILY #90 tabs 11/04/23 metoprolol succinate 50 mg tablet,extended release 24 hr 50 mg PO DAILY #90 tabs 12/11/23 cholecalciferol (vitamin D3) 125 mcg (5,000 unit) capsule 125 mcg PO DAILY #90 caps 01/26/24 blood sugar diagnostic (CrowdBounceruch Verio test strips) #100 ea 02/17/24 lancets 33 gauge (Path LogicTouch Delica Plus Lancet) #100 ea 02/17/24 blood-glucose meter (OneTouch Verio Flex Meter) #1 ea 03/09/24 esomeprazole magnesium 20 mg capsule,delayed release 20 mg PO QDAY #30 caps 03/31/24 hydrocodone 10 mg-acetaminophen 325 mg tablet 1 tab PO Q4 PRN pain 03/31/24 capecitabine 500 mg tablet 1,500 mg PO BID 04/08/24 gabapentin 100 mg capsule 100 mg PO BID #60 caps 04/22/24 losartan 50 mg tablet 50 mg PO DAILY #90 tabs 05/21/24 potassium chloride 10 mEq tablet,extended release 10 meq PO DAILY #90 tabs 05/21/24 ondansetron HCl 4 mg tablet 4 mg PO Q8H PRN PRN nausea and vomiting 06/17/24 oxycodone 5 mg tablet 5 mg PO Q6H PRN PRN pain 06/17/24 sennosides 8.6 mg tablet (Katt-trinidad) 8.6 mg PO BID PRN PRN constipation 06/17/24 oxycodone 10 mg tablet,crush resistant,extended release 12 hr (OxyContin) 10 mg PO BID 7 days #14 tabs 06/18/24 Physical Exam Const alert, oriented x3, no apparent distress and no limitations; Negative for average body habitus, healthy appearing or well nourished Constitutional Narrative: Frail-appearing, elderly, white female, lying in bed, appears older than stated age, appears moderately uncomfortable but nontoxic General Appearance: cooperative, well kempt and well developed; Negative for comfortable Nutritional Appearance: overweight HEENT normocephalic and head/scalp atraumatic HEENT Narrative: Mild hearing loss, Mallampati 2, no thrush Eyes conjunctivae normal Eyes Narrative: No scleral icterus Neck supple Neck Narrative: Trachea midline Resp normal respiratory effort, no retractions, no use of accessory muscles and clear to auscultation bilaterally Auscultation: Negative for rales, rhonchi or wheezes Cardio regular rate, regular rhythm, S1 normal heart sound, S2 normal heart sound, no murmurs, no rub, no gallops and no clicks GI GI Narrative: Markedly distended abdomen that is tight, no fluid wave due to tautness, hepatomegaly noted, tender diffusely, bowel sounds are normal Extremity Extremity Narrative: Bilateral lower extremity pitting edema that is 2+, no cyanosis or clubbing, radial pulses are 2+ bilaterally Skin skin turgor normal and no jaundice Skin Narrative: Skin is pale Neuro oriented x3, moves all extremities and no focal motor deficits Neuro Narrative: Severe generalized weakness noted Speech: speech normal Psych Psych Narrative: Affect is mildly flat but appropriate for current situation, nontoxic Weight / BMI Weight Weight: 66.2 kg Body Mass Index (BMI) 30.4 ABG / Lab / Microbiology Data 06/18/24 06:57 06/18/24 06:57 Laboratory: Laboratory Results - last 24 hr 06/17/24 23:06: WBC 6.2, RBC 3.59 L, Hgb 11.7 L, Hct 34.5 L, MCV 96.1, MCH 32.6 H, MCHC 33.9, RDW Std Deviation 84.5 H, RDW Coeff of Awa 24.3 H, Plt Count 128 L, MPV 11.1, Immature Gran % (Auto) 0.300, Neut % (Auto) 69.6, Lymph % (Auto) 16.3 L, Bremer % (Auto) 12.7 H, Eos % (Auto) 0.6, Baso % (Auto) 0.5, Absolute Neuts (auto) 4.3, Absolute Lymphs (auto) 1.02, Nucleated RBC % 0, Differential Comment SCANNED, Anisocytosis RARE, PT 15.9 H, INR 1.3, APTT 27.0, Sodium 135, Potassium 3.7, Chloride 99, Carbon Dioxide 24.5, Anion Gap 11, BUN 13, Creatinine 0.52 L, Estim Creat Clear Calc 52.31, Est GFR (MDRD) Non-Af 97, BUN/Creatinine Ratio 24.4 H, Glucose 118 H, Calcium 8.8, Magnesium 1.9, Total Bilirubin 1.06, Direct Bilirubin 0.70 H, AST 123 H, ALT 26, Alkaline Phosphatase 235 H, Troponin T High Sens 13, NT pro BNP II 199, Total Protein 5.6 L, Albumin 2.8 L, Globulin 2.9 06/18/24 06:57: WBC 5.3, RBC 3.33 L, Hgb 10.9 L, Hct 31.8 L, MCV 95.5, MCH 32.7 H, MCHC 34.3, RDW Std Deviation 85.0 H, RDW Coeff of Awa 24.4 H, Plt Count 125 L, MPV 10.6, Immature Gran % (Auto) 0.400, Neut % (Auto) 65.7, Lymph % (Auto) 19.5, Bremer % (Auto) 12.9 H, Eos % (Auto) 1.1, Baso % (Auto) 0.4, Absolute Neuts (auto) 3.5, Absolute Lymphs (auto) 1.03, Nucleated RBC % 0, Anisocytosis 1+, Sodium 139, Potassium 3.4, Chloride 99, Carbon Dioxide 26.1, Anion Gap 14, BUN 12, Creatinine 0.56 L, Estim Creat Clear Calc 51.59, Est GFR (MDRD) Non-Af 95, BUN/Creatinine Ratio 20.8 H, Glucose 93, Calcium 9.1, Phosphorus 3.3, Total Bilirubin 1.29, AST 109 H, ALT 25, Alkaline Phosphatase 210 H, Total Protein 6.0, Albumin 3.4, Globulin 2.6, Albumin/Globulin Ratio 1.3, TSH 2.170 Radiography Diagnostic Testing: Radiology Impression Chest CTA 06/17/24 23:18 IMPRESSION: No evidence of filling defect to suggest pulmonary embolism. Heavy appearing proximal and mid LAD coronary calcification. 6 mm noncalcified subpleural pulmonary nodule above the dome of the left hemidiaphragm for example axial 94. Reading Location: [facility] Abdomen/Pelvis CT 06/17/24 23:19 IMPRESSION: A moderate amount of abdominopelvic free fluid is again noted, not significantly changed. Overall the degree of anasarca appears increased since the prior study. 6 mm noncalcified subpleural pulmonary nodule above the left hemidiaphragm at the left base. Multifocal numerous varying in size and shape hepatic lesions are again noted as previously reported consistent with metastatic disease. Reading Location: [facility] D/C Instructions Discharge Diet: No restrictions DC O2, CPAP, BIPAP Needs Home O2 Discharge instructions: No Meaningful Use Info Meaningful Use Meaningful Use Diagnoses (Choose all that apply): None applicable Ischemic Stroke Statin Dosing Therapy Reference: STATIN DOSE THERAPY REFERENCE: * Patients > 75 years receive moderate or high dose statin therapy. * Patients 75 years or YOUNGER should receive HIGH intensity statin dose unless contraindicated. You will be required to document reason for non-treatment if statin daily dose does not meet guidelines. HIGH DOSE STATIN THERAPY DAILY Atorvastatin > than or = to 40 mg Rosuvastatin > than or = to 20 mg Amlodipine + Atorvastatin > than or = to 2.5/40 mg Ezetimibe + Simvastatin 10/80 mg Simvastatin 80mg Discharge Plan Admission Admit Date/Time: 06/18/24 02:38 Primary Reason for Your Visit: Worsening abdominal pain secondary to ascites Attending Provider: Shanon Gerardo Primary Care Provider: Weston Tobar Consulting Providers: Edy Friedman Instructions Additional Instructions / Restrictions: 1. OxyContin low-dose was started to help with your pain. This is a twice daily pain medication that is long-acting that you take in the morning and the evening. Please continue to take your oxycodone as needed throughout the day. I would recommend you call palliative care and let them know that your pain has become more significant. I have talked to oncology and they will see you next week 2. If you develop worsening fluid in your abdomen early in the week please call oncology's office and they will be able to set up outpatient paracentesis earlier than scheduled for next Friday Discharge Orders/Prescriptions Prescriptions: New oxycodone [OxyContin] 10 mg Tablet,Oral Only,Ext.Rel.12 Hr 10 mg PO BID 7 Days Qty: 14 0RF Continued (DME) Iris Vision Goggles See Rx Instructions .Route .MEDSUPPLY Qty: 1 0RF Rx Instructions: As directed nystatin 100,000 unit/gram powder 1 applic TOPICAL BID PRN (Reason: Dermatitis) Qty: 60 3RF Protocol: *Topical Application Instructions APPLICATION INSTRUCTIONS: Apply to affected area alendronate 70 mg tablet 70 mg PO QWEEK Qty: 14 3RF Patient Comments: MONDAYS (DME) Handicap Placard See Rx Instructions .ROUTE .MEDSUPPLY Qty: 1 0RF Rx Instructions: As directed, length of time 3 years (DME) Handicap Placard See Rx Instructions .ROUTE .MEDSUPPLY Qty: 1 0RF Rx Instructions: As directed, length of time 3 years lidocaine-prilocaine 2.5-2.5 % cream 1 applic topical ONCE PRN (Reason: port access) 30 Days Qty: 30 2RF metoprolol succinate 50 mg tablet extended release 24 hr 50 mg PO DAILY Qty: 90 3RF gabapentin 100 mg capsule 100 mg PO BID Qty: 60 2RF Rx Instructions: Start by QHS x 1 week then increase to BID hydrocodone-acetaminophen 10-325 mg tablet 1 tab PO Q4 PRN (Reason: pain) esomeprazole magnesium 20 mg capsule,delayed release(DR/EC) 20 mg PO QDAY Qty: 30 1RF capecitabine 500 mg tablet 1,500 mg PO BID Patient Comments: [NO ORIGINAL SIG] Rx Instructions: 2 weeks on; 1 week off aspirin 81 MG tablet,delayed release (DR/EC) 81 mg PO DAILY latanoprost 0.005 % drops 1 drp EACH EYE DAILY Patient Comments: Apply 1 drop in both eyes daily ondansetron HCl 4 mg tablet 4 mg PO Q8H PRN PRN (Reason: nausea and vomiting) oxycodone 5 mg tablet 5 mg PO Q6H PRN PRN (Reason: pain) sennosides [Katt-trinidad] 8.6 mg tablet 8.6 mg PO BID PRN PRN (Reason: constipation) (DME) nebulizers [facility] See Rx Instructions .Route Qty: 1 0RF Rx Instructions: As directed escitalopram oxalate 5 mg tablet 5 mg PO QDAY Qty: 90 2RF rosuvastatin 10 mg tablet 10 mg PO DAILY Qty: 90 1RF cholecalciferol (vitamin D3) 125 mcg (5,000 unit) capsule 125 mcg PO DAILY Qty: 90 2RF (DME) OneTouch Verio test strips Strip See Rx Instructions .Route Qty: 100 3RF Rx Instructions: As directed (DME) lancets [OneTouch Delica Plus Lancet] 33 gauge [facility] See Rx Instructions .Route Qty: 100 3RF Rx Instructions: As directed to check blood glucose twice daily (DME) blood-glucose meter [OneTouch Verio Flex meter] [facility] See Rx Instructions .Route Qty: 1 0RF Rx Instructions: As directed losartan 50 mg tablet 50 mg PO DAILY Qty: 90 3RF potassium chloride 10 mEq tablet extended release 10 meq PO DAILY Qty: 90 1RF Referrals / Follow Up: Weston Tobar MD [Primary Care Provider] - Within 1 Week Tonie Enrique PRIMING MACHINE OPERATOR, PRIMING MACHINE OPERATOR-C [Med Staff - Adv Practice Prof] - See Referral Note (Next week as scheduled) Disposition Disposition (needs filled in before D/C Order can be placed): Home, Self Care Charges/Coding Visit Charges Inpatient E&M: 84483 Disch Hosp >30min
--- NOTE | 2024-06-18 12:33 | OP.PCM_ITS ---
Problems Associated Problem List Diagnoses (1) Abdominal ascites: Multi Select Codes Radiology Radiology US Procedures: 54072 Paracentesis Operative Report (Standard) Operative Information Date of Procedure: 06/18/24 Pre-Operative Diagnosis: Abdominal ascites Post-Operative Diagnosis: Abdominal ascites Surgery/Procedure Performed: Ultrasound-guided paracentesis automobile parts assembler: No Type of Anesthesia: Local Procedure Start Time: 12:05 Procedure Stop Time: 12:29 Select all DRAINS/GRAFTS/IMPLANTS that apply: None Estimated Blood Loss: 0 Specimen collected: No Description of surgery: PROCEDURE: Ultrasound guided paracentesis ORDERING PROVIDER: Dr. Edy Friedman INDICATION: Female, 74 years old. Abdominal ascites. PROVIDER: BRIT Barakat TECHNIQUE: The risks, benefits, and alternatives to the procedure were explained to the patient. The specific risks of bleeding, infection, and damage to bowel were detailed and accepted. Witnessed informed consent was obtained. She is on aspirin 81 mg but no other blood thinning medications. The abdomen was ultrasonographically surveyed. An appropriate pocket of fluid was identified in the right upper quadrant. The skin was prepped with chlorhexidine and sterile field established. 2% lidocaine was used for local anesthetic. Using ultrasound guidance, the peritoneal cavity was accessed with a 5-Maltese paracentesis needle/catheter system. The trocar was removed. A total of 3850 ml of clear yellow colored fluid was removed from the peritoneal cavity. The catheter was removed and a sterile dressing was applied. The procedure was well tolerated. There were no immediate complications. The procedure was proctored by interventional radiologist Dr. Villanueva. IMPRESSION: Successful ultrasound guided paracentesis with right upper quadrant access site. Surgical Findings: None Complications Complications: No
[2024-06-18] MEDS: Escitalopram Oxalate 10 MG Tablet 5 MG PO (13:12)
[2024-06-18] MEDS: Pantoprazole Sodium 20 MG Tablet PO (13:12)
--- NOTE | 2024-06-18 13:17 | NURSING ---
pt awaiting tray-will start pain meds (oxy ir) once food arrives
[2024-06-18] MEDS: oxyCODONE HCl Cr 10 MG Tablet PO (13:36)
[2024-06-18] MEDS: Potassium Chloride Oral Tablet 10 MEQ PO (13:40)
--- NOTE | 2024-06-18 14:47 | CASEMGMT ---
CLINTON BEE received email from [facility] stating they will schedule a follow-up with patient soon. Patient has order for discharge. CLINTON BEE in to discuss needs at discharge. RN CRISTAL updated patient regarding palliative follow-up. Patient denies needs or help at discharge. Patient denied further concerns and had no further questions.
--- NOTE | 2024-06-18 15:50 | CASEMGMT ---
SW completed Healthcare Power of Rubber Stamps And Dies Supervisor and Healthcare Living Will with patient per her request. Copies were made and given to patient along with originals. SW also placed a copy in patient's chart. Danika HAGER
--- NOTE | 2024-06-18 15:57 | NURSING ---
pt awaiting talking to STRUCTURAL IRONWORKER for update on POA/living will
--- NOTE | 2024-06-18 15:58 | NURSING ---
social work has completed updating pt living will etc completed d/c instructions and called for w/ch transport
--- NOTE | 2024-06-18 16:06 | CHAPLAIN ---
Type of Pastoral Visit _x__ Initial Visit ___ Follow-up Visit ___ On-call Visit ___ General Patient Visit ___ Spiritual Assessment ___ Family Conference ___ Bereavement ___ Rapid Response ___ Code Blue ___ Other (describe below) Pastoral Care Referral From _x__ Patient ___ Family ___ Nurse ___ Physician ___ Systems Support Officer ___ Outdoor Pursuits Instructor ___ Other (describe below) Sacrament/Intervention ___ Active listening ___ Anointing ___ Amish ___ Bereavement ___ Communion _x__ Idania exploration ___ ___ Life review _x__ Prayer ___ Reconciliation ___ Sacrament of Sick _x__ Supportive presence ___ Wedding ___ Other (describe below) Pastoral Comments on third attempt to see patient today she was sitting at edge of bed and waiting for a wheelchair for discharge; pt admits that my time is short, I have stage four cancer; she repeats that again later in visit; offer of listening care and support for her concerns and spiritual hope; pt's spouse is also with her and states that I think the cancer has grown but we have to wait to see the doctor to know for sure; pt requests prayers and acknowledges that she is getting through this illness because God is right here sitting on my shoulders;
== END 2024-06-18 16:02 | disposition home or self-care (01) ==
LOC: ED 06-18 01:52 → MS3 06-18 03:16
PROVIDERS: Admitting Provider Internal Medicine; Emergency Provider Surgery; PCP Internal Medicine; Visit Provider Internal Medicine
DX: C78.7 Secondary malignant neoplasm of liver and intrahepatic bile duct (principal); R18.0 Malignant ascites; M06.9 Rheumatoid arthritis, unspecified; C50.919 Malignant neoplasm of unspecified site of unspecified female breast; E11.40 Type 2 diabetes mellitus with diabetic neuropathy, unspecified; E11.39 Type 2 diabetes mellitus with other diabetic ophthalmic complication; G89.29 Other chronic pain; R91.1 Solitary pulmonary nodule; I10 Essential (primary) hypertension; I25.10 Atherosclerotic heart disease of native coronary artery without angina pectoris; D69.6 Thrombocytopenia, unspecified; Z92.21 Personal history of antineoplastic chemotherapy; E78.5 Hyperlipidemia, unspecified; E66.811 Obesity, class 1; Z68.31 Body mass index [BMI] 31.0-31.9, adult; Z87.891 Personal history of nicotine dependence; Z79.83 Long term (current) use of bisphosphonates; Z79.899 Other long term (current) drug therapy; Z86.718 Personal history of other venous thrombosis and embolism; K21.9 Gastro-esophageal reflux disease without esophagitis; Z79.82 Long term (current) use of aspirin; D64.9 Anemia, unspecified; F32.A Depression, unspecified; H42 Glaucoma in diseases classified elsewhere; R06.02 Shortness of breath
CPT/HCPCS: 36415; 49083; 71275; 74177; 80048; 80053; 80076; 83735; 83880; 84100; 84443; 84484; 85025; 85610; 85730; 93005; 96365; 96366; 96372; 96375; 96376; 99221; 99285; P9047; Q9967; A4216; G0378; J1940

== ENCOUNTER 2024-06-24 12:59 | Emergency (ER) | payer MEDICARE, SELFPAY ==
[2024-04-15 12:01] VITALS: BMI 24.4
[2024-06-24] VITALS (7 sets, daily range): BP systolic 91–111; BP diastolic 45–68; PULSE 63–69; RESP 14–20; TEMP 36.1–36.6; O2SAT 9–98; BMI 30.2
--- NOTE | 2024-06-24 13:15 | EKG12_ITS ---
Test Reason : SOB Blood Pressure : */* mmHG Vent. Rate : 63 BPM Atrial Rate : 63 BPM P-R Int : 188 ms QRS Dur : 78 ms QT Int : 452 ms P-R-T Axes : 42 4 -21 degrees QTcB Int : 462 ms Normal sinus rhythm Cannot rule out Anterior infarct (cited on or before 17-Jun-2024) Abnormal ECG Confirmed by SATYA CRUZ, STANISLAV ([id number]), food editor JOSE SALGADO ([id number]) on 06/25/2024 8:17:35 AM Referred By: Confirmed By: STANISLAV HERNADEZ MD
--- NOTE | 2024-06-24 13:15 | CT_ITS ---
PROCEDURE: CTA CHEST W/WO CONTRAST ([id number]), 06/24/2024 REASON FOR EXAM: SHORTNESS OF BREATH HISTORY OF CARCINOMA TECHNIQUE: CTA chest was performed with IV contrast. Multiplanar reformats and MIP reconstructions were generated. CONTRAST: Isovue 370 VOLUME: 100mL RADIATION DOSE SUMMARY: CTDlvol: 4.75+ 5.81 mGy DLP: 138.80 mGycm One or more dose reduction techniques were used (e.g., Automated exposure control, adjustment of the mA and/or kV according to patient size, use of iterative reconstruction technique). COMPARISON: 06/18/2024 FINDINGS: Heart/pericardium: Severe three-vessel coronary atherosclerosis and/or stents. Slight relative enlargement of the RIGHT ventricle and LEFT atrium trace aortic annular calcification.. Aorta: Mild/moderate atherosclerosis. Pulmonary arteries: Normal in caliber. No pulmonary embolism is identified. Lymph nodes: RIGHT axillary kylie dissection. No overt thoracic lymphadenopathy.. Lungs/pleura: Minimal atelectasis/scarring. 7 x 7 mm subpleural LEFT lower lobe nodule abutting the diaphragm unchanged, probably enlarged from more remote exams (series 2, image 65). 2 mm superior segment LEFT lower lobe nodule, probably unchanged allowing for technical differences (image 102). Granuloma. Airways: Mild central bronchial wall thickening.. Chest wall: RIGHT mastectomy. RIGHT chest wall port catheter.. Upper abdomen: Better evaluated on recent CT 06/16/2024, not definitely changed. Musculoskeletal: Demineralization. Multilevel spondylosis. Slightly exaggerated thoracic kyphosis. Degenerative changes of the shoulders. Mild scoliosis may be positional.. CT/CTA Chest W/WO Contrast IMPRESSION: 1. No pulmonary embolism identified. 2. Mild central bronchial wall thickening could reflect small airways disease s uch as bronchitis. 3. 7 mm subpleural LEFT lower lobe nodule is probably unchanged but enlarged fr om more remote exams, suspicious for metastasis given the context. 4. Upper abdomen better evaluated on recent CT 06/16/2024, not definitely [place] ed. 5. Additional description as above. Reading Location: [id number]
--- NOTE | 2024-06-24 13:19 | ED.VIS.DYS ---
HPI History of Present Illness Chief Complaint: Shortness of Breath Narrative Narrative: 74-year-old female past medical history of breast carcinoma with metastasis to liver with malignant ascites presents with shortness of breath. She was at the roving hauler/oncologist office today. They are trying to access her port for laboratory work. However, she became very short of breath and hypoxic. She required oxygen which she does not wear at home. Of note, she has a standing schedule for outpatient paracentesis every Friday. She was recently admitted to the hospital on Friday for paracentesis. Additionally, about a week ago she had a CTA of the lungs to rule out pulmonary embolism. She was sent back to the emergency department today by the nurse practitioner because of concern for pulmonary embolism again because she became hypoxic and short of breath. She denies any chest pain or any other symptoms. Her feels she may be more short of breath because although she had a recent paracentesis, it only has been 4 to 6 days instead of weekly that she might need a paracentesis performed again. [facility] Medical History Obesity (BMI 30.0-34.9) Edema of both lower legs At risk for bleeding Neuropathy Encounter for education At high risk for deep venous thrombosis Swelling of both lower extremities Encounter for chemotherapy management Diarrhea due to drug Bradycardia Folliculitis Bronchitis Malaise and fatigue Incomplete bladder emptying Cancer Diabetes Chronic pain Abdominal bloating Encounter for chemotherapy management Wears hearing aid Legally blind Wears dentures Anxiety History of steroid therapy DVT (deep venous thrombosis) Restless legs Dietary restriction History of edema History of stress test Metastasis to liver Recurrent breast cancer Hyperlipidemia Flu vaccine need Scalp itch Screening for thyroid disorder History of tobacco use Blurry vision Headache Obesity (BMI 30-39.9) Type 2 diabetes mellitus Hyperglycemia Venous insufficiency of both lower extremities Encounter for screening for malignant neoplasm of lung in former smoker who quit in past 15 years with 30 pack year history or greater Back pain Health care maintenance Intertriginous dermatitis associated with moisture Low back pain Macular degeneration Chest pain Hypertension Macular degeneration Neck pain Acute internal jugular vein thrombosis Cough Invasive ductal carcinoma of right breast Encounter for adjustment or management of vascular access device Breast cancer, right Hemorrhoids Rheumatoid arthritis GERD (gastroesophageal reflux disease) IBS (irritable bowel syndrome) Back problem Arthritis Home Medications ?Medication ?Instructions ?Recorded ?Last Taken ?Type aspirin 81 mg tablet,delayed 81 mg PO DAILY [facility] 05/29/18 06/23/24 History release Iris Vision Goggles #1 ea 08/11/20 Unknown Rx nystatin 100,000 unit/gram topical 1 applic topical BID PRN 05/08/21 01/27/23 Rx powder Dermatitis #60 grams latanoprost 0.005 % eye drops 1 drp EACH EYE QHS 06/24/22 06/23/24 History Handicap Placard #1 ea 01/07/23 Unknown Rx Handicap Placard #1 ea 01/07/23 Unknown Rx lidocaine-prilocaine 2.5 %-2.5 % 1 applic topical ONCE PRN port 03/31/23 Unknown Rx topical cream access 30 days #30 grams nebulizers #1 ea 06/30/23 Unknown Rx rosuvastatin 10 mg tablet 10 mg PO DAILY #90 tabs 11/04/23 06/23/24 Rx metoprolol succinate 50 mg 50 mg PO DAILY #90 tabs 12/11/23 06/24/24 Rx tablet,extended release 24 hr cholecalciferol (vitamin D3) 125 125 mcg PO DAILY #90 caps 01/26/24 06/23/24 Rx mcg (5,000 unit) capsule blood sugar diagnostic (OneTouch #100 ea 02/17/24 Unknown Rx Verio test strips) lancets 33 gauge (OneTouch Delica #100 ea 02/17/24 Unknown Rx Plus Lancet) blood-glucose meter (OneTouch #1 ea 03/09/24 Unknown Rx Verio Flex Meter) capecitabine 500 mg tablet 1,000 mg PO BID 04/08/24 06/24/24 History gabapentin 100 mg capsule 100 mg PO BID #60 caps 04/22/24 06/23/24 Rx losartan 50 mg tablet 50 mg PO DAILY #90 tabs 05/21/24 06/24/24 Rx potassium chloride 10 mEq 10 meq PO DAILY #90 tabs 05/21/24 06/23/24 Rx tablet,extended release ondansetron HCl 4 mg tablet 4 mg PO Q8H PRN nausea and vomiting 06/17/24 Unknown History oxycodone 5 mg tablet 5 mg PO Q6H PRN pain 06/17/24 Unknown History sennosides 8.6 mg tablet (Katt-trinidad) 8.6 mg PO BID PRN constipation 06/17/24 Unknown History oxycodone 10 mg tablet,crush 10 mg PO BID 7 days #14 tabs 06/18/24 06/24/24 Rx resistant,extended release 12 hr (OxyContin) alendronate 70 mg tablet 70 mg PO MO 06/24/24 Unknown History escitalopram oxalate 5 mg tablet 5 mg PO DAILY Anxiety 06/24/24 06/23/24 History esomeprazole magnesium 20 mg 20 mg PO DAILY 06/24/24 06/23/24 History capsule,delayed release Allergy/AdvReac Type Severity Reaction Status Date / Time Antihistamines - Ethanolamine Allergy Severe TACHYCARDIA Verified 06/24/24 13:05 Antihistamines - Allergy Severe TACHYCARDIA Verified 06/24/24 13:05 Ethylenediamine Antihistamines - Piperazine Allergy Severe TACHYCARDIA Verified 06/24/24 13:05 Antihistamines - Piperidine Allergy Severe TACHYCARDIA Verified 06/24/24 13:05 diphenhydramine (From Allergy Severe TACHYCARDIA Verified 06/24/24 13:05 Benadryl) Antihistamines - Alkylamine AdvReac Mild TACHYCARDIA Verified 06/24/24 13:05 Family History Mother Heart disease Diabetes Arthritis Father Heart disease Surgical History Hx of right knee surgery H/O mastectomy History of total right knee replacement (TKR) History of reconstruction of right breast History of lymph node dissection of right axilla History of right total mastectomy History of total left knee replacement History of cholecystectomy History of appendectomy H/O section Social History household members: spouse housing: house Smoking Status: Former smoker quit date: 04/04/20 Tobacco: How many years used: 55 Electronic Cigarette Use: not used second hand exposure: Yes quit status: has quit before alcohol intake: former substance use type: does not use caffeine: Yes (3/week) Type: tea what type of physical activity do you participate in: none and walking frequency: does not exercise seatbelt use: always ROS ROS ED ROS Narrative Review of systems positive for shortness of breath. No fevers or chills, no cough. Positive abdominal distention. No chest pain. EXAM Physical Exam Narrative Exam Narrative: Afebrile. Vital signs noted. Nontoxic-appearing. Cardiovascular examination of is a regular rate and rhythm. Lungs are clear to auscultation bilaterally. The abdomen is distended with fluid. No guarding or rebound. Trace pedal edema bilaterally. Neurological examination nonfocal and nonlateralizing. Const Vital Signs: 06/24/24 13:00 06/24/24 13:05 06/24/24 13:05 Temperature 97.7 F L 97.7 F L Temperature Source Oral Oral Pulse Rate 63 64 Respiratory Rate 20 H 17 Respiratory Effort Non-Labored Short of Breath Respiratory Depth Normal Respiratory Pattern Normal Blood Pressure 95/45 L Blood Pressure Mean 61 Pulse Ox 9 98 Oxygen Delivery Method Room Air Room Air Room Air 06/24/24 13:31 06/24/24 14:05 06/24/24 15:00 Temperature 97.9 F 97.9 F Temperature Source Oral Oral Pulse Rate 68 69 Respiratory Rate 18 18 Respiratory Effort Respiratory Depth Respiratory Pattern Blood Pressure 111/68 91/49 L Blood Pressure Mean 82 63 Pulse Ox 96 98 94 Oxygen Delivery Method Room Air Room Air Room Air MDM MDM MDM Narrative Medical decision making narrative: Differential diagnosis includes but not limited to dyspnea secondary to abdominal distention from malignant ascites versus pneumonia versus pneumothorax versus pulmonary embolism. History and physical does not support pneumonia or pneumothorax. Additionally, she recently had a CTA for a pulmonary embolism within the last week according to the oncology [facility]. However, she was sent down for repeat CTA and because of her hypoxia. Currently, she is satting 96% on room air. I reviewed her laboratory work and she has normal white count of 6.7, hemoglobin stable at 11.2, hematocrit 32.6, platelet count 171. Sodium is low at 131 but when compared to prior labs, she has been hyponatremic most recently with a chloride of 96 as well. BUN 22, glucose 124 and appropriately elevated with a normal anion gap of 10. EKG was obtained and interpreted by myself independently as normal sinus rhythm at 63 bpm without ectopy or acute ST changes. No STEMI. Of note, I was informed by the RN that patient's son called in. They would like a hospice consultation today. She is already on palliative care. They also inquired about a tunneled catheter for continuous/even more frequent intermittent paracentesis to draw fluid off her abdomen as she seems not to be able to make it to her weekly appointments, and does not want needle paracentesis each week or more frequently. I was told by radiology, that she would need to follow-up with general surgery to see if they would do that. I will discuss the patient with Dr. Askew on-call for surgery to see if she would be able to follow-up in a more timely fashion. I had discussed with them observation and the possibility of calling the hospitalist, but patient and declined saying that it would have to be a full admission and that they did not want observation status. I do think that perhaps she would be able to be discharged to have her paracentesis tomorrow. Additionally, I will discuss patient with Dr. Askew with general surgery to see if she can follow-up as an outpatient or if she can be evaluated and put on the preoperative schedule for a tunneled paracentesis catheter next week. I discussed the patient with Dr. Askew. He believes that only Dr. Mehta performs the Pleurx catheter procedure in the peritoneal cavity/abdomen. They will be referred to Dr. Mehta who is out of town until next Friday for follow-up. Otherwise he should have the paracentesis performed tomorrow. I discussed patient with social work. Perhaps she could get a home hospice consultation. I discussed the patient with the [facility] for oncology as well. Patient and wanted know about cancer markers and the CT scan results. She did have CT of the chest abdomen and pelvis performed. In discussion with the [facility], it is concerning/suspicious for progression of the metastatic disease and given the fact that she is reaccumulating fluid more rapidly, they were actually in the office for hospice discussion and CODE STATUS discussion as well. I informed them that the patient's CA 27/29 markers were elevated according to the [facility], as well as the concern for progression of disease and it was felt that in-home hospice consultation is appropriate. They can call hematology/oncology with further questions. They are motivated for discharge home as they are not meeting any requirements for admission currently. Disposition is discharged home in stable condition. History & Record Review Discussion w/independent historian: Patient and Family Lab Data Attestation: I reviewed the patient's lab results. Labs: Laboratory Results - last 24 hr 06/24/24 13:22 WBC 6.7 RBC 3.32 L Hgb 11.2 L Hct 32.6 L MCV 98.2 MCH 33.7 H MCHC 34.4 RDW Std Deviation 90.5 H RDW Coeff of Awa 25.4 H Plt Count 171 MPV 10.9 Immature Gran % (Auto) 0.200 Neut % (Auto) 67.8 Lymph % (Auto) 14.9 L [place] % (Auto) 15.6 H Eos % (Auto) 1.2 Baso % (Auto) 0.3 Absolute Neuts (auto) 4.5 Absolute Lymphs (auto) 0.99 Nucleated RBC % 0 Polychromasia 1+ Anisocytosis 2+ Ovalocytes 1+ Sodium 131 L Potassium 3.8 Chloride 96 L Carbon Dioxide 25.3 Anion Gap 10 BUN 22 H Creatinine 0.90 Estim Creat Clear Calc 45.68 L Est GFR (MDRD) Non-Af 67 BUN/Creatinine Ratio 24.9 H Glucose 124 H Calcium 8.6 Radiography Diagnostic Testing: Clinical Impression(s) from Imaging Studies Chest CTA 06/24/24 13:15 IMPRESSION: 1. No pulmonary embolism identified. 2. Mild central bronchial wall thickening could reflect small airways disease such as bronchitis. 3. 7 mm subpleural LEFT lower lobe nodule is probably unchanged but enlarged from more remote exams, suspicious for metastasis given the context. 4. Upper abdomen better evaluated on recent CT 06/16/2024, not definitely changed. 5. Additional description as above. Reading Location: [facility] Management Discussion w/another healthcare provider: Acls Nurse Discharge Plan Triage Chief Complaint: Shortness of Breath ED Provider: Krunal Bourgeois Dx/Rx/DC Orders Clinical Impression: Malignant neoplasm of breast metastatic to liver, SOB (shortness of breath), Encounter for hospice care discussion Instructions: Hospice- Caring for Your Loved One, Hospice Care Decisions to Make Prescriptions: No Action (DME) Iris Vision Goggles See Rx Instructions .Route .MEDSUPPLY Qty: 1 0RF Rx Instructions: As directed nystatin 100,000 unit/gram powder 1 applic TOPICAL BID PRN (Reason: Dermatitis) Qty: 60 3RF Protocol: *Topical Application Instructions APPLICATION INSTRUCTIONS: Apply to affected area (DME) Handicap Placard See Rx Instructions .ROUTE .MEDSUPPLY Qty: 1 0RF Rx Instructions: As directed, length of time 3 years (DME) Handicap Mitchell See Rx Instructions .ROUTE .MEDSUPPLY Qty: 1 0RF Rx Instructions: As directed, length of time 3 years lidocaine-prilocaine 2.5-2.5 % cream 1 applic topical ONCE PRN (Reason: port access) 30 Days Qty: 30 2RF metoprolol succinate 50 mg tablet extended release 24 hr 50 mg PO DAILY Qty: 90 3RF gabapentin 100 mg capsule 100 mg PO BID Qty: 60 2RF Rx Instructions: Start by QHS x 1 week then increase to BID capecitabine 500 mg tablet 1,000 mg PO BID Rx Instructions: 2 weeks on; 1 week off aspirin 81 MG tablet,delayed release (DR/EC) 81 mg PO DAILY latanoprost 0.005 % drops 1 drp EACH EYE QHS Patient Comments: Apply 1 drop in both eyes daily alendronate 70 mg tablet 70 mg PO MO Patient Comments: PT HASNT TAKEN IN A COUPLE MONTHS. esomeprazole magnesium 20 mg capsule,delayed release(DR/EC) 20 mg PO DAILY escitalopram oxalate 5 mg tablet 5 mg PO DAILY ondansetron HCl 4 mg tablet 4 mg PO Q8H PRN (Reason: nausea and vomiting) oxycodone 5 mg tablet 5 mg PO Q6H PRN (Reason: pain) sennosides [Katt-trinidad] 8.6 mg tablet 8.6 mg PO BID PRN (Reason: constipation) oxycodone [OxyContin] 10 mg Tablet,Oral Only,Ext.Rel.12 Hr 10 mg PO BID 7 Days Qty: 14 0RF (DME) [place] [facility] [place] .Route Qty: 1 0RF Rx Instructions: As directed rosuvastatin 10 mg tablet 10 mg PO DAILY Qty: 90 1RF cholecalciferol (vitamin D3) 125 mcg (5,000 unit) capsule 125 mcg PO DAILY Qty: 90 2RF (DME) OneTouch Verio test strips Strip See Rx Instructions .Route Qty: 100 3RF Rx Instructions: As directed (DME) lancets [OneTouch Delica Plus Lancet] 33 gauge [facility] [place] Rx Instructions .Route Qty: 100 3RF Rx Instructions: As directed to check blood glucose twice daily (DME) blood-glucose meter [OneTouch Verio Flex meter[place] [facility] [place]ructions .Route Qty: 1 0RF Rx Instructions: As directed losartan 50 mg tablet 50 mg PO DAILY Qty: 90 3RF potassium chloride 10 mEq tablet extended release 10 meq PO DAILY Qty: 90 1RF Primary Care Provider: Weston Tobar Referrals: Weston Tobar MD [Primary Care Provider] - Lorenza Esparza MD [Med Staff - Active Staff] - As soon as possible Activity Restrictions/Additional Instructions: Follow-up with Dr. Julio Mehta regarding possible placement of Pleurx catheter into your abdomen for fluid drainage. Hospice will be contacting you regarding an in-home evaluation. Have your paracentesis performed tomorrow as scheduled. Call your roving hauler/oncologist tomorrow as needed. Return with new or worsening symptoms. Print Language: Kiswahili Disposition Disposition: Home, Self Care
[2024-06-24 13:45] LABS: Absolute Lymphocyte Count 0.99 X10^3/uL (0.83-4.51); Absolute Neutrophil Count 4.5 X10^3/uL (2.0-7.7); Basophil# 0.02 X10^3/uL; Basophil% 0.3 % (0-1); Eosinophil# 0.08 X10^3/uL; Eosinophils% 1.2 % (0-5); Hematocrit 32.6 % (37-47); Hemoglobin 11.2 g/dL (12.0-15.0); Lymphocyte # 0.99 X10^3/ul (0.83-4.51); Lymphocyte % 14.9 % (19-41); Mean Corp Hgb Conc 34.4 g/dL (32-36); Mean Corpuscular Hgb 33.7 pg (27.0-32.0); Mean Corpuscular Volume 98.2 fL (81-99); Mean Platelet Vol. 10.9 fl (6.2-12.0); Monocyte# 1.04 X10^3/uL; Monocyte% 15.6 % (0-10); NRBC Flagged by Analyzer 0 % (0-5); Neutrophil # 4.52 X10^3/uL (2.7-7.7); Neutrophil % 67.8 % (47-70); POSITIVE MORPHOLOGY YES; Platelet Count 171 K/mm3 (150-450); RBC Distribution Width CV 25.4 % (11.6-14.6); RBC Distribution Width SD 90.5 fl (35.1-43.9); Red Blood Count 3.32 M/mm3 (4.2-5.4); White Blood Count 6.7 K/mm3 (4.4-11.0)
[2024-06-24 13:49] LABS: Differential Indicated SCAN CRITERIA MET
[2024-06-24 14:12] LABS: Anisocytosis 2+
[2024-06-24 14:14] LABS: Anion Gap 10 (5-15); BUN 22 mg/dL (4-19); BUN/Creat Ratio 24.9 RATIO (10-20); Calcium,Total 8.6 mg/dL (7.6-11.0); Carbon Dioxide 25.3 mmol/L (21.0-32.0); Chloride 96 mmol/L (98-108); EST Glomerular Filtration Rate 67 (>60); Estimated Creatinine Clearance 45.68 ml/min (50-250); Glucose 124 mg/dL (70-99); Potassium 3.8 mmol/L (3.3-5.1); Sodium Level 131 mmol/L (133-145)
[2024-06-24 14:19] LABS: Ovalocyte 1+; Polychromasia 1+
--- NOTE | 2024-06-24 15:47 | CM.ED ---
Social work Reason for referral: hospice/palliative care Referral source: Dr. Bourgeois/Marlene Kaplan RN This SW talked with Marlene RN about patient after patient's son, Zacarias, called Marlene RN (ph: [phone]). Per Marlene RN, Zacarias stated patient and patient's 's desire to have patient enter hospice care (patient already in palliative care). This SW met with patient and patient's , Obdulio, introducing self and role at [facility]. Patient's known to this SW from a community setting and patient stated being comfortable with this SW helping despite knowing patient's . Patient and patient's both agreed to wanting hospice care due to patient's condition. In conversation with Dr. Bourgeois, further conversations needed to be held to see if surgery could be completed at [facility] if patient were admitted prior to hospice being called. Once Dr. Bourgeois provided SW with information stated in Dr. Bourgeois's note, this SW called [facility] (ph: ) to inform of patient's desire to switch from palliative care to hospice care. [facility] stated ability to move patient's chart and call patient/patient's to complete a home evaluation. No further needs identified. Margaret Culver, SECTION LEADER AND MACHINE SETTER, MANAGER ONLINE
--- NOTE | 2024-06-25 09:38 | CM.ED ---
Social Work DANIE received call from Valeri at [facility] stating that she was having trouble getting ahold of patient and her . Valeri verified with DANIE that she had the correct phone numbers for patient and . DANIE verified same and gave Valeri phone number for patients son, Zacarias. No further needs at this time. Beba Watson, EMPLOYMENT SERVICE SPECIALIST, CRACKING UNIT OPERATOR
== END 2024-06-24 17:26 | disposition home or self-care (01) ==
PROVIDERS: Emergency Provider Emergency Medicine; PCP Internal Medicine; Visit Provider Emergency Medicine
DX: R06.02 Shortness of breath (principal); C78.7 Secondary malignant neoplasm of liver and intrahepatic bile duct; R18.0 Malignant ascites; C50.919 Malignant neoplasm of unspecified site of unspecified female breast; E11.40 Type 2 diabetes mellitus with diabetic neuropathy, unspecified; Z51.5 Encounter for palliative care; E78.5 Hyperlipidemia, unspecified; I10 Essential (primary) hypertension; Z87.891 Personal history of nicotine dependence; R09.02 Hypoxemia; K21.9 Gastro-esophageal reflux disease without esophagitis; Z79.82 Long term (current) use of aspirin; Z79.899 Other long term (current) drug therapy
CPT/HCPCS: 36591; 71275; 80048; 85025; 93005; 99283; Q9967; A4216

== ENCOUNTER → 2024-06-25 | Outpatient (CLI) | payer MEDICARE, SELFPAY ==
[2024-04-15 12:01] VITALS: BMI 24.4
[2024-06-25 11:15] VITALS: BP 111/53; PULSE 65; RESP 16; O2SAT 98
[2024-06-25] MEDS: Lidocaine 2% (20 ml mdv) 20 ML Vial INFILT (11:20)
[2024-06-25 11:30] VITALS: BP 99/51; PULSE 61; RESP 16; O2SAT 97
[2024-06-25 11:45] VITALS: BP 92/41; PULSE 64; RESP 16; O2SAT 98
[2024-06-25 11:48] VITALS: BP 95/41; PULSE 65; RESP 16; O2SAT 98
--- NOTE | 2024-06-25 11:53 | OP.PCM_ITS ---
Procedures Hospitalists Procedures: Other Procedure - See Report (Ultrasound-guided paracentesis) Operative Report (Standard) Operative Information Date of Procedure: 06/25/24 Pre-Operative Diagnosis: Malignant ascites Post-Operative Diagnosis: Malignant ascites Surgery/Procedure Performed: Paracentesis back tender cloth printing: No Type of Anesthesia: Local Procedure Start Time: 11:20 Procedure Stop Time: 11:49 Select all DRAINS/GRAFTS/IMPLANTS that apply: None Estimated Blood Loss: 0 Specimen collected: No Description of surgery: PROCEDURE: Ultrasound guided paracentesis ORDERING PROVIDER: Dr. Garcia INDICATION: Female, 74 years old. Abdominal ascites. PROVIDER: Shanon Gerardo, TECHNIQUE: The risks, benefits, and alternatives to the procedure were explained to the patient. The specific risks of bleeding, infection, and damage to bowel were detailed and accepted. Witnessed informed consent was obtained. She is on aspirin 81 mg but no other blood thinning medications. Timeout was performed prior to the procedure The abdomen was ultrasonographically surveyed. An appropriate pocket of fluid was identified in the right upper quadrant. The skin was prepped with chlorhexidine and sterile field established. 2% lidocaine was used for local anesthetic. Using ultrasound guidance, the peritoneal cavity was accessed with a 5-Ukrainian paracentesis needle/catheter system. The trocar was removed. A total of 2900 ml of clear yellow colored fluid was removed from the peritoneal cavity. The catheter was removed and a sterile dressing was applied. The procedure was well tolerated. There were no immediate complications. Surgical Findings: IMPRESSION: Successful ultrasound guided paracentesis with right upper quadrant access site. Complications Complications: No
== END | disposition home or self-care (01) ==
LOC: US 11:03
PROVIDERS: PCP Internal Medicine; Referring Provider Internal Medicine Hematology & Oncology; Visit Provider Internal Medicine Hematology & Oncology
DX: R18.8 Other ascites (principal)
CPT/HCPCS: 49083

== ENCOUNTER 2024-07-02 09:26 | Day surgery (SDC) | payer MEDICARE, SELFPAY ==
[2024-04-15 12:01] VITALS: BMI 24.4
--- NOTE | 2024-06-30 09:16 | PAT.ANESEVAL ---
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 When Was Last Pacemaker Check QUESTION #4 FULL TEXT: You/Your Family Experience fever (hyperthermia) with Anesthesia Last Oral Intake Last Oral intake: Last Oral Intake NPO since Meds taken in AM with sips of water? 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 Has anyone observed you stop No 06/30/24 08:45 breathing during sleep? STOP Results Negative 06/30/24 08:45 QUESTION #5 FULL TEXT : Do you snore loudly (louder than talking or can be heard through closed doors)? 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 Specify any problems Hx of Preganancy in last 3 No 06/30/24 08:45 Months Nurse Filling Out Transfusion VCHRISTIN 06/30/24 08:45 & Questions: Date: 06/30/24 06/30/24 08:45 Time: 08:46 06/30/24 08:45 Patient unable to answer at this time (ie. confused, unrespo /Reproduction History /Reproductive History - metal tile setter: /Reproductive Hx- metal tile setter Hx Now No 06/30/24 08:45 Gestational Age (in weeks): EDC: Hx Hx Para Hx Section SAB No 06/30/24 08:45 PFSH Medical History (Updated 06/30/24 @ 08:48 by Miguelina Markham) Uses wheelchair History of IBS Gastric reflux Shortness of breath on exertion History of pain when walking Normal Holter exam Cardiology follow-up encounter Obesity (BMI 30.0-34.9) Edema of both lower legs At risk for bleeding Neuropathy Encounter for education At high risk for deep venous thrombosis Swelling of both lower extremities Encounter for chemotherapy management Diarrhea due to drug Bradycardia Folliculitis Bronchitis Malaise and fatigue Incomplete bladder emptying Cancer Diabetes Chronic pain Abdominal bloating Encounter for chemotherapy management Wears hearing aid Legally blind Wears dentures Anxiety History of steroid therapy DVT (deep venous thrombosis) Restless legs Dietary restriction History of edema History of stress test Metastasis to liver Recurrent breast cancer Hyperlipidemia Flu vaccine need Scalp itch Screening for thyroid disorder History of tobacco use Blurry vision Headache Obesity (BMI 30-39.9) Type 2 diabetes mellitus Hyperglycemia Venous insufficiency of both lower extremities Encounter for screening for malignant neoplasm of lung in former smoker who quit in past 15 years with 30 pack year history or greater Back pain Health care maintenance Intertriginous dermatitis associated with moisture Low back pain Macular degeneration Chest pain Hypertension Macular degeneration Neck pain Acute internal jugular vein thrombosis Cough Invasive ductal carcinoma of right breast Encounter for adjustment or management of vascular access device Breast cancer, right Hemorrhoids Rheumatoid arthritis GERD (gastroesophageal reflux disease) IBS (irritable bowel syndrome) Back problem Arthritis Home Medications ?Medication ?Instructions ?Recorded ?Last Taken ?Type aspirin 81 mg tablet,delayed 81 mg PO DAILY Heart Health 05/29/18 06/23/24 History release Iris Vision Goggles #1 ea 08/11/20 Unknown Rx nystatin 100,000 unit/gram topical 1 applic topical BID PRN 05/08/21 01/27/23 Rx powder Dermatitis #60 grams latanoprost 0.005 % eye drops 1 drp EACH EYE QHS 06/24/22 06/23/24 History Handicap Placard #1 ea 01/07/23 Unknown Rx Handicap Placard #1 ea 01/07/23 Unknown Rx lidocaine-prilocaine 2.5 %-2.5 % 1 applic topical ONCE PRN port 03/31/23 Unknown Rx topical cream access 30 days #30 grams nebulizers #1 ea 06/30/23 Unknown Rx rosuvastatin 10 mg tablet 10 mg PO DAILY #90 tabs 11/04/23 06/23/24 Rx metoprolol succinate 50 mg 50 mg PO DAILY #90 tabs 12/11/23 06/24/24 Rx tablet,extended release 24 hr cholecalciferol (vitamin D3) 125 125 mcg PO DAILY #90 caps 01/26/24 06/23/24 Rx mcg (5,000 unit) capsule blood sugar diagnostic (OneTouch #100 ea 02/17/24 Unknown Rx Verio test strips) lancets 33 gauge (OneTouch Delica #100 ea 02/17/24 Unknown Rx Plus Lancet) blood-glucose meter (OneTouch #1 ea 03/09/24 Unknown Rx Verio Flex Meter) gabapentin 100 mg capsule 100 mg PO BID #60 caps 04/22/24 06/23/24 Rx losartan 50 mg tablet 50 mg PO DAILY #90 tabs 05/21/24 06/24/24 Rx potassium chloride 10 mEq 10 meq PO DAILY #90 tabs 05/21/24 06/23/24 Rx tablet,extended release ondansetron HCl 4 mg tablet 4 mg PO Q8H PRN nausea and vomiting 06/17/24 Unknown History oxycodone 5 mg tablet 5 mg PO Q6H PRN pain 06/17/24 Unknown History sennosides 8.6 mg tablet (Katt-trinidad) 8.6 mg PO BID PRN constipation 06/17/24 Unknown History oxycodone 10 mg tablet,crush 10 mg PO BID 7 days #14 tabs 06/18/24 06/24/24 Rx resistant,extended release 12 hr (OxyContin) alendronate 70 mg tablet 70 mg PO MO 06/24/24 Unknown History escitalopram oxalate 5 mg tablet 5 mg PO DAILY Anxiety 06/24/24 06/23/24 History esomeprazole magnesium 20 mg 20 mg PO DAILY 06/24/24 06/23/24 History capsule,delayed release metformin 500 mg tablet,extended 500 mg PO TID 06/30/24 Unknown History release 24 hr Allergy/AdvReac Type Severity Reaction Status Date / Time Antihistamines - Ethanolamine Allergy Severe TACHYCARDIA Verified 06/30/24 08:30 Antihistamines - Allergy Severe TACHYCARDIA Verified 06/30/24 08:30 Ethylenediamine Antihistamines - Piperazine Allergy Severe TACHYCARDIA Verified 06/30/24 08:30 Antihistamines - Piperidine Allergy Severe TACHYCARDIA Verified 06/30/24 08:30 diphenhydramine (From Allergy Severe TACHYCARDIA Verified 06/30/24 08:30 Benadryl) Antihistamines - Alkylamine AdvReac Mild TACHYCARDIA Verified 06/30/24 08:30 Family History Mother Heart disease Diabetes Arthritis Father Heart disease Surgical History (Updated 06/30/24 @ 08:41 by Miguelina Markham) Hx of surgical procedure Hx of right knee surgery H/O mastectomy History of total right knee replacement (TKR) History of reconstruction of right breast History of lymph node dissection of right axilla History of right total mastectomy History of total left knee replacement History of cholecystectomy History of appendectomy H/O section Social History household members: spouse housing: house Smoking Status: Former smoker quit date: 04/04/20 Tobacco: How many years used: 55 Electronic Cigarette Use: not used second hand exposure: Yes quit status: has quit before alcohol intake: former substance use type: does not use caffeine: Yes (3/week) Type: tea what type of physical activity do you participate in: none and walking frequency: does not exercise seatbelt use: always Audit: Pertinent Findings Pertinent Findings EKG Perinent findings: NSR Stress test pertinent findings: Negative regadenoson sestamibi myocardial perfusion study for reversible myocardial ischemia Hyperdynamic left ventricle. Echo (EF%) pertinent findings: 12/2023: EF 65%, mild triscupid valve insuffieincy RVSP 56 mmHg Mild Additional pertinent findings: 48-hour Holter monitor in normal sinus rhythm with rare PVCs and frequent PACs. Recommendation Anesthesia Recommendation Anesthesia recommendation: OPTIMIZED for anesthesia
[2024-07-02] VITALS (9 sets, daily range): BP systolic 91–103; BP diastolic 45–53; PULSE 71–73; RESP 14–16; TEMP 36.1–37.1; O2SAT 96–100; BMI 28.5
--- NOTE | 2024-07-02 09:59 | PCM.HP.BLA ---
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 Chief Complaint: pleurex catheter Allergies Antihistamines - Ethanolamine Allergy (Severe, Verified 07/01/24 08:50) TACHYCARDIAAntihistamines - Ethylenediamine Allergy (Severe, Verified 07/01/24 08:50) TACHYCARDIAAntihistamines - Piperazine Allergy (Severe, Verified 07/01/24 08:50) TACHYCARDIAAntihistamines - Piperidine Allergy (Severe, Verified 07/01/24 08:50) TACHYCARDIAdiphenhydramine (From Benadryl) Allergy (Severe, Verified 07/01/24 08:50) TACHYCARDIAAntihistamines - Alkylamine Adverse Reaction (Mild, Verified 07/01/24 08:50) TACHYCARDIA Medications ?Medication ?Instructions ?Recorded ?Confirmed ?Type aspirin 81 mg tablet,delayed 81 mg PO DAILY Heart Health 05/29/18 07/01/24 History release Iris Vision Goggles #1 ea 08/11/20 07/01/24 Rx nystatin 100,000 unit/gram topical 1 applic topical BID PRN 05/08/21 07/01/24 Rx powder Dermatitis #60 grams latanoprost 0.005 % eye drops 1 drp EACH EYE QHS 06/24/22 07/01/24 History Handicap Placard #1 ea 01/07/23 07/01/24 Rx Handicap Placard #1 ea 01/07/23 07/01/24 Rx lidocaine-prilocaine 2.5 %-2.5 % 1 applic topical ONCE PRN port 03/31/23 07/01/24 Rx topical cream access 30 days #30 grams nebulizers #1 ea 06/30/23 07/01/24 Rx rosuvastatin 10 mg tablet 10 mg PO DAILY #90 tabs 11/04/23 07/01/24 Rx metoprolol succinate 50 mg 50 mg PO DAILY #90 tabs 12/11/23 07/01/24 Rx tablet,extended release 24 hr cholecalciferol (vitamin D3) 125 125 mcg PO DAILY #90 caps 01/26/24 07/01/24 Rx mcg (5,000 unit) capsule blood sugar diagnostic (OneTouch #100 ea 02/17/24 07/01/24 Rx Verio test strips) lancets 33 gauge (OneTouch Delica #100 ea 02/17/24 07/01/24 Rx Plus Lancet) blood-glucose meter (OneTouch #1 ea 03/09/24 07/01/24 Rx Verio Flex Meter) gabapentin 100 mg capsule 100 mg PO BID #60 caps 04/22/24 07/01/24 Rx losartan 50 mg tablet 50 mg PO DAILY #90 tabs 05/21/24 07/01/24 Rx potassium chloride 10 mEq 10 meq PO DAILY #90 tabs 05/21/24 07/01/24 Rx tablet,extended release ondansetron HCl 4 mg tablet 4 mg PO Q8H PRN nausea and vomiting 06/17/24 07/01/24 History oxycodone 5 mg tablet 5 mg PO Q6H PRN pain 06/17/24 07/01/24 History sennosides 8.6 mg tablet (Katt-trin[place]) 8.6 mg PO BID PRN constipation 06/17/24 07/01/24 History oxycodone 10 mg tablet,crush 10 mg PO BID 7 days #14 tabs 06/18/24 07/01/24 Rx resistant,extended release 12 hr (OxyContin) alendronate 70 mg tablet 70 mg PO MO 06/24/24 07/01/24 History escitalopram oxalate 5 mg tablet 5 mg PO DAILY Anxiety 06/24/24 07/01/24 History esomeprazole magnesium 20 mg 20 mg PO DAILY 06/24/24 07/01/24 History capsule,delayed release metformin 500 mg tablet,extended 500 mg PO TID 06/30/24 07/01/24 History release 24 hr Have you fallen in the past year?: No PFSH Medical History Uses wheelchair History of IBS Gastric reflux Shortness of breath on exertion History of pain when walking Normal Holter exam Cardiology follow-up encounter Obesity (BMI 30.0-34.9) Edema of both lower legs At risk for bleeding Neuropathy Encounter for education At high risk for deep venous thrombosis Swelling of both lower extremities Encounter for chemotherapy management Diarrhea due to drug Bradycardia Folliculitis Bronchitis Malaise and fatigue Incomplete bladder emptying Cancer Diabetes Chronic pain Abdominal bloating Encounter for chemotherapy management Wears hearing aid Legally blind Wears dentures Anxiety History of steroid therapy DVT (deep venous thrombosis) Restless legs Dietary restriction History of edema History of stress test Metastasis to liver Recurrent breast cancer Hyperlipidemia Flu vaccine need Scalp itch Screening for thyroid disorder History of tobacco use Blurry vision Headache Obesity (BMI 30-39.9) Type 2 diabetes mellitus Hyperglycemia Venous insufficiency of both lower extremities Encounter for screening for malignant neoplasm of lung in former smoker who quit in past 15 years with 30 pack year history or greater Back pain Health care maintenance Intertriginous dermatitis associated with moisture Low back pain Macular degeneration Chest pain Hypertension Macular degeneration Neck pain Acute internal jugular vein thrombosis Cough Invasive ductal carcinoma of right breast Encounter for adjustment or management of vascular access device Breast cancer, right Hemorrhoids Rheumatoid arthritis GERD (gastroesophageal reflux disease) IBS (irritable bowel syndrome) Back problem Arthritis Surgical History Hx of surgical procedure Hx of right knee surgery H/O mastectomy History of total right knee replacement (TKR) History of reconstruction of right breast History of lymph node dissection of right axilla History of right total mastectomy History of total left knee replacement History of cholecystectomy History of appendectomy H/O section Family History Mother Heart disease Diabetes ArthritisFather Heart disease Social History household members: spouse housing: house Smoking Status: Former smoker quit date: 04/04/20 Tobacco: How many years used: 55 Electronic Cigarette Use: not used second hand exposure: Yes quit status: has quit before alcohol intake: former substance use type: does not use caffeine: Yes (3/week) Type: tea what type of physical activity do you participate in: none and walking frequency: does not exercise seatbelt use: always HPI HPI HPI: Patient is a 74-year-old female with metastatic breast cancer to the liver. She is here because she is having recurrent ascites. Her last paracentesis was 5 days ago. She is entering hospice care at this time. She is stopping chemotherapy. ROS General General: Yes weight change, fatigue and breast cancer; No appetite, colon cancer or weakness HEENT HEENT: No difficulty swallowing, eye injury, eye surgery, swollen glands or hoarseness Endo Endocrine: Yes diabetes mellitus; No thyroid disease, thyroid cancer, Hair loss, heat intolerance or cold intolerance Skin Skin: No rash or changing moles Musc Musculoskeletal: Yes back problems, arthritis and rheumatoid arthritis; No gout or joint pain Cardio Cardiovascular: Yes murmur and high blood pressure; No pacemaker, heart disease, atrial fibrillation, heart attack, heart stent, palpitations, shortness of breath with exertion or chest pain Psych Psychiatric: Yes anxiety; No depression or hearing voices Resp Respiratory: Yes shortness of breath, No sleep apnea, No cough, No COPD, No asthma, No emphysema and No wheezing Gastro Gastrointestinal: Yes abdominal pain, Yes nausea or vomiting, No diarrhea, No constipation, No blood in stool, Yes acid reflux, No hemorrhoids, No ulcers, No gallbladder problem and No black,tarry stools Bruce Hematologic: No blood thinners, No blood disorders, No bleeding, No anemia and No blood clots Neuro Neurologic: No system reviewed and no additional complaints, except as documented, No as per HPI, No abnormal gait, No abnormal hearing, No abnormal movements, No abnormal speech, No behavioral changes, No burning sensations, No confusion, No convulsions, No disequilibrium, No dizziness, No localized weakness, No frequent falls, No headache(s), No lack of coordination, No loss of vision, No memory loss, Yes numbness, No other visual disturbances, No radicular pain, No restless legs, No sensory deficit, No syncope, Yes tingling, No tremor(s), No weakness and No other Exam Const General: cooperative Orientation: alert and oriented x3 HENOR Head: normal to inspection Neck Neck: normal visual inspection and full ROM Chest Chest palpation & inspection: normal inspection of the chest Resp Effort & Inspection: normal respiratory effort Auscultation: clear to auscultation bilaterally Cardio Rate: regular rate Rhythm: regular rhythm GI Inspection: non-distended Palpation: soft and nontender Skin General: no rashes or lesions noted Neuro General: patient alert and patient oriented x3 Extrem General: full ROM Psych Appearance: grossly normal Mental Status: mental status grossly normal Assessment and Plan Assessment and Plan (1) Abdominal ascites: Status: Acute Qualifiers: Ascites type: malignant Qualified Code(s): R18.0 - Malignant ascites Plan: The patient has recurrent malignant ascites. I discussed placing a Pleurx abdominal catheter for palliative treatment of her ascites. She is entering hospice. I discussed the risks including but not limited to bleeding, infection, injury to underlying organs. Patient understands the risks and is willing to proceed. Plan on performing surgery tomorrow. Julio Mehta MD Pager: [facility] [address] [place] [address], [address] [place] [phone] Office: I have examined the patient and the H&P has been reviewed. There are no clinical changes since date of exam.
--- NOTE | 2024-07-02 10:23 | PRE.ANES_ITS ---
ASA Classification* ASA Classification ASA Classification: 3 Assessment & Plan Anesthesia* Anesthesia Assessment Anesthesia Assessment: Discussed sedation and/or anesthesia options, risks, benefits, and alternatives with patient/parents/legal guardian/POA. Questions invited. The patient/parents/legal guardian/POA seems to understand and agrees to proceed with anesthesia plan. Reviewed the physical assessment, medical history, allergy history and patient home medications list prior to surgery/procedure/anesthetic and documented any changes. Performed airway and anesthesia risk assessments. Procedural Plan Add'l anesthesia plan details: patient reporting heartburn for the past few days, worsened after she was told to stop taking antacids. ordered famotidine 20mg IV to be given now. Anesthesia Type Anesthesia Type: MAC (discussed with surgeon, plan for light sedation) History Source History Obtained from:: Patient, Chart and Significant Other Anesthesia Focused Assessment* Oxygen Delivery Method: Room Air Airway Assessment Mouth opens: >3 cm Mallampati Score: II Teeth Condition: Dentures and Full Neck Range of motion (ROM): Full ROM Focused Labs Anesthesia Preop lab: CBC WBC 6.7 K/mm3 (4.4-11.0) 06/24/24 13:06/24/24 RBC 3.32 M/mm3 (4.2-5.4) L 06/24/24 13:06/24/24 Hgb 11.2 g/dL (12.0-15.0) L 06/24/24 13: 5 Hct 32.6 % (37-47) L 06/24/24 13:06/24/24 Plt Count 171 K/mm3 (150-450) 06/24/24 13:22 06/24/24 CHEMISTRY Potassium 3.8 mmol/L (3.3-5.1) 06/24/24 13:22 06/24/24 Sodium 131 mmol/L (133-145) L 06/24/24 13:06/24/24 Magnesium 1.9 mg/dL (1.5-2.2) 06/17/24 23:06 06/17/24 Phosphorus 3.3 mg/dL (2.7-4.5) 06/18/24 06:57 06/18/24 BUN 22 mg/dL (4-19) H 06/24/24 13:22 06/24/24 Creatinine 0.90 mg/dL (0.70-1.20) 06/24/24 13:22 06/24/24 Glucose 124 mg/dL (70-99) H 06/24/24 13:22 06/24/24 POC Glucose 108 mg/dL (74-106) H 03/13/23 16:09 03/13/23 TSH 2.170 uIU/mL (0.300-4.200) 06/18/24 06:57 05/26 07/18 COAG PT 15.9 SECONDS (11.7-14.9) H 06/17/24 23:06 05/26 06/18 Pre-Assessment Diagnosis/Proposed Procedure Planned Operative Procedure(s): INSERTION TUNNELED CHEST TUBE Anesthesia History Anesthesia History - blue print control clerk: Anesthesia History - blue print control clerk Hx Hospitalization Yes 06/30/24 08:45 Any Problems With Anesthesia No 06/30/24 08:45 Cholinesterase deficiency No 06/30/24 08:45 You/Your Family Experience No 06/30/24 08:45 fever (hyperthermia) with Relationship Recent Exposure to Contagious No 04/15/24 12:01 Disease Does patient have nerve No 06/30/24 08:45 stimulator Patient instructed to have device shut off --Does patient have Pacemaker or ICD? When Was Last Pacemaker Check QUESTION #4 FULL TEXT: You/Your Family Experience fever (hyperthermia) with Anesthesia Last Oral Intake Last Oral intake: Last Oral Intake NPO since Meds taken in AM with sips of water? Meds patient instructed to take am of surgery PONV PONV - blue print control clerk: PONV - blue print control clerk Female Yes 06/30/24 08:45 HX of Motion Sickness No 06/30/24 08:45 HX of N/V After Surgery No 06/30/24 08:45 Non-Smoker Yes 06/30/24 08:45 Duration of Surgery greater Yes 06/30/24 08:45 than 60 minutes Number of Risk Factors 3 06/30/24 08:45 PONV Score Moderate Risk 06/30/24 08:45 Height & Weight Height & Weight: Anesthesia: Height & Weight Height 4 ft 10 in 07/01/24 11:19 Weight: 65.317 kg 07/01/24 11:19 Respiratory Assessment Respiratory Assessment - blue print control clerk: Respiratory Tract Infection Hx - blue print control clerk Hx Respiratory Tract Infection No 06/30/24 08:45 STOP Sleep Apnea STOP Sleep Apnea - blue print control clerk: STOP Sleep Apnea - blue print control clerk Hx Hypertension Yes: CNTROLLED ON MED 06/30/24 08:45 Hx Sleep Apnea No 06/30/24 08:45 CPAP BIPAP Do you snore loudly (louder No 06/30/24 08:45 than talking or can be heard Do you often feel tired/ No 06/30/24 08:45 fatigued/ sleepy during daytime? Has anyone observed you stop No 06/30/24 08:45 breathing during sleep? STOP Results Negative 06/30/24 08:45 QUESTION #5 FULL TEXT : Do you snore loudly (louder than talking or can be heard through closed doors)? Tobacco Use History Tobacco Use History - blue print control clerk: Tobacco Use History - blue print control clerk Tobacco Use Non-smoker 04/15/24 12:01 Smoking Status Former smoker 06/30/24 08:45 Hx Tobacco Use Yes 06/30/24 08:45 Years Smoking Packs Smoked per Day Smoking Cessation Date was Yes - quit smoking within 15 06/30/24 08:45 within the last 15 years years Hx Smoking Cessation Date 04/04/20 06/30/24 08:45 Hx Smoking Cessation Counseling Hematologic Medial History Hematologic Hx - blue print control clerk: Hematologic Medical Hx - molecular pathologist Hx of Blood Transfusion No 06/30/24 08:45 Hx of Transfusion in last 3 No 06/30/24 08:45 Months Date of Last Transfusion (if within last 3 months) Ever experience any problems No 06/30/24 08:45 with transfusion(s)? Specify any problems Hx of Preganancy in last 3 No 06/30/24 08:45 Months Nurse Filling Out Transfusion VCHRISTIN 06/30/24 08:45 & Questions: Date: 06/30/24 06/30/24 08:45 Time: 08:46 06/30/24 08:45 Patient unable to answer at this time (ie. confused, unrespo /Reproduction History /Reproductive History - blue print control clerk: /Reproductive Hx- blue print control clerk Hx Now No 06/30/24 08:45 Gestational Age (in weeks): EDC: Hx Hx Para Hx Section SAB No 06/30/24 08:45 Active Medications Active Medications: Current Medications Generic Name Dose Route Start Last Admin Trade Name Freq PRN Reason Stop Dose Admin Cefazolin Sodium 2 gm/ Sodium 110 mls @ 150 mls/hr 07/02/24 11:30 Chloride IV 07/02/24 12:13 INTRAOP ONE [facility] Medical History Uses wheelchair History of IBS Gastric reflux Shortness of breath on exertion History of pain when walking Normal Holter exam Cardiology follow-up encounter Obesity (BMI 30.0-34.9) Edema of both lower legs At risk for bleeding Neuropathy Encounter for education At high risk for deep venous thrombosis Swelling of both lower extremities Encounter for chemotherapy management Diarrhea due to drug Bradycardia Folliculitis Bronchitis Malaise and fatigue Incomplete bladder emptying Cancer Diabetes Chronic pain Abdominal bloating Encounter for chemotherapy management Wears hearing aid Legally blind Wears dentures Anxiety History of steroid therapy DVT (deep venous thrombosis) Restless legs Dietary restriction History of edema History of stress test Metastasis to liver Recurrent breast cancer Hyperlipidemia Flu vaccine need Scalp itch Screening for thyroid disorder History of tobacco use Blurry vision Headache Obesity (BMI 30-39.9) Type 2 diabetes mellitus Hyperglycemia Venous insufficiency of both lower extremities Encounter for screening for malignant neoplasm of lung in former smoker who quit in past 15 years with 30 pack year history or greater Back pain Health care maintenance Intertriginous dermatitis associated with moisture Low back pain Macular degeneration Chest pain Hypertension Macular degeneration Neck pain Acute internal jugular vein thrombosis Cough Invasive ductal carcinoma of right breast Encounter for adjustment or management of vascular access device Breast cancer, right Hemorrhoids Rheumatoid arthritis GERD (gastroesophageal reflux disease) IBS (irritable bowel syndrome) Back problem Arthritis Home Medications ?Medication ?Instructions ?Recorded ?Last Taken ?Type aspirin 81 mg tablet,delayed 81 mg PO DAILY Heart Heal th 05/29/18 06/30/24 History release Iris Vision Goggles #1 ea 08/11/20 Unknown Rx nystatin 100,000 unit/gram topical 1 applic topical BI D PRN 05/08/21 01/27/23 Rx powder Dermatitis #60 grams latanoprost 0.005 % eye drops 1 drp EACH EYE QHS 06/2406/23/24 History Handicap Placard #1 ea 01/07/23 Unknown Rx Handicap Placard #1 ea 01/07/23 Unknown Rx lidocaine-prilocaine 2.5 %-2.5 % 1 applic topical ONCE PRN port 03/31/23 Unknown Rx topical cream access 30 days #30 grams nebulizers #1 ea 06/30/23 Unknown Rx rosuvastatin 10 mg tablet 10 mg PO DAILY #90 tabs 10/2506/23/24 Rx metoprolol succinate 50 mg 50 mg PO DAILY #90 tabs 06/30/24 Rx tablet,extended release 24 hr cholecalciferol (vitamin D3) 125 125 mcg PO DAILY #90 caps 01/26/24 06/23/24 Rx mcg (5,000 unit) capsule blood sugar diagnostic (OneTouch #100 ea 02/17/24 Unkn own Rx Verio test strips) lancets 33 gauge (OneTouch Delica #100 ea 02/17/24 Unk nown Rx Plus Lancet) blood-glucose meter (OneTouch #1 ea 03/09/24 Unknown R x Verio Flex Meter) gabapentin 100 mg capsule 100 mg PO BID #60 caps 04/2206/23/24 Rx losartan 50 mg tablet 50 mg PO DAILY #90 tabs 04/2506/24/24 Rx potassium chloride 10 mEq 10 meq PO DAILY #90 tabs 06/23/24 Rx tablet,extended release ondansetron HCl 4 mg tablet 4 mg PO Q8H PRN nausea and vomiting 06/17/24 Unknown History oxycodone 5 mg tablet 5 mg PO Q6H PRN pain 5 Unknown History sennosides 8.6 mg tablet (Katt-trinidad) 8.6 mg PO BID PRN constipation 06/17/24 Unknown History oxycodone 10 mg tablet,crush 10 mg PO BID 7 days #14 t abs 06/18/24 06/24/24 Rx resistant,extended release 12 hr (OxyContin) alendronate 70 mg tablet 70 mg PO MO 06/24/24 Unknown History escitalopram oxalate 5 mg tablet 5 mg PO DAILY Anxiety 06/24/24 06/23/24 History esomeprazole magnesium 20 mg 20 mg PO DAILY 06/24/24 0 06/23/24 History capsule,delayed release metformin 500 mg tablet,extended 500 mg PO TID 5 Unknown History release 24 hr Allergy/AdvReac Type Severity Reaction Status Date / Time Antihistamines - Ethanolamine Allergy Severe TACHYCARDIA Verified 07/02/24 10:20 Antihistamines - Allergy Severe TACHYCARDIA Verified 07/02/24 10:20 Ethylenediamine Antihistamines - Piperazine Allergy Severe TACHYCARDIA Verified 07/02/24 10:20 Antihistamines - Piperidine Allergy Severe TACHYCARDIA Verified 07/02/24 10:20 diphenhydramine (From Allergy Severe TACHYCARDIA Verified 07/02/24 10:20 Benadryl) Antihistamines - Alkylamine AdvReac Mild TACHYCARDIA Verified 07/02/24 10:20 Family History Mother Heart disease Diabetes Arthritis Father Heart disease Surgical History Hx of surgical procedure Hx of right knee surgery H/O mastectomy History of total right knee replacement (TKR) History of reconstruction of right breast History of lymph node dissection of right axilla History of right total mastectomy History of total left knee replacement History of cholecystectomy History of appendectomy H/O section Social History household members: spouse housing: house Smoking Status: Former smoker quit date: 04/04/20 Tobacco: How many years used: 55 Electronic Cigarette Use: not used second hand exposure: Yes quit status: has quit before alcohol intake: former substance use type: does not use caffeine: Yes (3/week) Type: tea what type of physical activity do you participate in: none and walking frequency: does not exercise seatbelt use: always Review of Systems (Anesthesia) ROS Narrative System reviewed and no additional complaints, except as documented. Physical Exam Const alert and oriented x3 Neck full ROM Resp normal respiratory effort Cardio regular rate Extremity full ROM Neuro oriented x3
[2024-07-02] MEDS: Lactated Ringers 1,000 ML 15 ML IV (10:35)
[2024-07-02] MEDS: Famotidine 200 MG/20 ML MDV 20 MG in 0.9% Normal Saline (Pres. free 8 ML 300 MG IV (10:40)
[2024-07-02] MEDS: Cefazolin 2 GM in 0.9% Normal Saline (100mL Bag) 100 ML IV (11:08)
--- NOTE | 2024-07-02 11:32 | PCM.POST.ANE ---
Anesthesia: Postop Eval I Current Vital Signs Temperature: 97 F Pulse Rate: 72 Blood Pressure: 100/52 Respiratory Rate: 14 Pulse Ox: 97 Oxygen Delivery Method: Room Air Assessment Airway patent: Yes Spontaneous unlabored respirations: Yes Mental status: Awake nausea: No Vomiting: No Anesthesia Complication: No Fluid Hydration Crystalloid volume administer (ml): 100 Total IV fluid infused: 100 Progress Note Anesthesia document: Postop Eval 1 completed: Yes
--- NOTE | 2024-07-02 11:43 | OP.PCM_ITS ---
Operative Report (Standard) Operative Information Date of Procedure: 07/02/24 Pre-Operative Diagnosis: Malignant ascites Post-Operative Diagnosis: Malignant ascites Surgery/Procedure Performed: Ultrasound-guided Pleurx abdominal catheter placement lead shop operator: No Type of Anesthesia: Local MAC RN Documented Start/Stop Times: Operation Date: 07/02/24 11:30 Case Time Into Pre-Op 07/02/24 09:50 Out of Pre-Op 07/02/24 10:57 Anesthesia Start 07/02/24 11:01 Into Room 07/02/24 11:01 Procedure Start 07/02/24 11:12 Procedure End 07/02/24 11:22 Anesthesia End 07/02/24 11:24 Out of Room 07/02/24 11:24 Into Recovery 07/02/24 11:37 Procedure Start Time: 11:12 Procedure Stop Time: 11:22 Select all DRAINS/GRAFTS/IMPLANTS that apply: Drains Drain details: Pleurx catheter Estimated Blood Loss: 5 Specimen collected: No Description of surgery: Patient was brought back to the operating room where MAC anesthesia was induced. The right abdomen was prepped and draped in the usual sterile fashion. An area was localized under ultrasound guidance and then injected with local anesthetic. Another area inferior to this was injected with local anesthetic. 2 small incisions were made. The catheter was tunneled from the lower incision to the upper incision. Next ultrasound guidance and the needle were used to access the abdominal cavity and the ascites. The syringe was removed and a guidewire was placed through the needle and then the needle was removed. The peel-away sheath was placed over the guidewire the guidewire was removed. The catheter was placed through the peel-away sheath and then the peel-away sheath was removed. The upper incision was closed with 3-0 Vicryl suture. The catheter was sutured to the skin using 3-0 nylon suture. The catheter was connected to suction and 2 L of ascites were removed. Dressings were applied. Patient was taken to PACU in stable condition. Surgical Findings: 2 L of ascites drained Complications Complications: No Admit VTE Documentation VTE Mechan Device Prophylaxis: SCD's
--- NOTE | 2024-07-02 11:51 | DCINST_ITS ---
Discharge Instructions Diet Discharge Diet: Light diet - advance as tolerated Activity Discharge Activity: Return to Normal Activity Dressing / Incision Call your doctor if your incision/area has: Continuous Slow Oozing, Sudden Increased Bleeding, Increased Pain/ Swelling, Increased Redness, Foul Smelling Discharge and Swelling at the incision site Call your doctor if you observe: Fever of 101 or Higher Cleanse incision/area with: Soap & Water Follow Up Care Please Follow Up With: Julio Mehta MD When: as needed. [phone] Test Results: Test results from this visit will be discussed in further detail at your follow- up appointment, if applicable. Discharge Plan Admission Attending Provider: Julio Mehta Primary Care Provider: Weston Tobar Instructions Print Language: Samoan Discharge Orders/Prescriptions Prescriptions: No Action (DME) Iris Vision Goggles See Rx Instructions .Route .MEDSUPPLY Qty: 1 0RF Rx Instructions: As directed nystatin 100,000 unit/gram powder 1 applic TOPICAL BID PRN (Reason: Dermatitis) Qty: 60 3RF Protocol: *Topical Application Instructions APPLICATION INSTRUCTIONS: Apply to affected area (DME) Handicap Placard See Rx Instructions .ROUTE .MEDSUPPLY Qty: 1 0RF Rx Instructions: As directed, length of time 3 years (DME) Handicap Placard See Rx Instructions .ROUTE .MEDSUPPLY Qty: 1 0RF Rx Instructions: As directed, length of time 3 years lidocaine-prilocaine 2.5-2.5 % cream 1 applic topical ONCE PRN (Reason: port access) 30 Days Qty: 30 2RF metoprolol succinate 50 mg tablet extended release 24 hr 50 mg PO DAILY Qty: 90 3RF gabapentin 100 mg capsule 100 mg PO BID Qty: 60 2RF Rx Instructions: Start by QHS x 1 week then increase to BID aspirin 81 MG tablet,delayed release (DR/EC) 81 mg PO DAILY latanoprost 0.005 % drops 1 drp EACH EYE QHS Patient Comments: Apply 1 drop in both eyes daily alendronate 70 mg tablet 70 mg PO MO Patient Comments: PT HASNT TAKEN IN A COUPLE MONTHS. esomeprazole magnesium 20 mg capsule,delayed release(DR/EC) 20 mg PO DAILY escitalopram oxalate 5 mg tablet 5 mg PO DAILY ondansetron HCl 4 mg tablet 4 mg PO Q8H PRN (Reason: nausea and vomiting) oxycodone 5 mg tablet 5 mg PO Q6H PRN (Reason: pain) sennosides [Katt-trinidad] 8.6 mg tablet 8.6 mg PO BID PRN (Reason: constipation) oxycodone [OxyContin] 10 mg Tablet,Oral Only,Ext.Rel.12 Hr 10 mg PO BID 7 Days Qty: 14 0RF metformin 500 mg tablet extended release 24 hr 500 mg PO TID (DME) nebulizers [facility] See Rx Instructions .Route Qty: 1 0RF Rx Instructions: As directed rosuvastatin 10 mg tablet 10 mg PO DAILY Qty: 90 1RF cholecalciferol (vitamin D3) 125 mcg (5,000 unit) capsule 125 mcg PO DAILY Qty: 90 2RF (DME) OneTouch Verio test strips Strip See Rx Instructions .Route Qty: 100 3RF Rx Instructions: As directed (DME) lancets [OneTouch Delica Plus Lancet] 33 gauge [facility] See Rx Instructions .Route Qty: 100 3RF Rx Instructions: As directed to check blood glucose twice daily (DME) blood-glucose meter [OneTouch Verio Flex meter] [facility] See Rx Instructions .Route Qty: 1 0RF Rx Instructions: As directed losartan 50 mg tablet 50 mg PO DAILY Qty: 90 3RF potassium chloride 10 mEq tablet extended release 10 meq PO DAILY Qty: 90 1RF Referrals / Follow Up: Weston Tobar MD [Primary Care Provider] - Disposition Disposition (needs filled in before D/C Order can be placed): Home, Self Care
[2024-07-02] MEDS: oxyCODONE 5 MG Tablet PO (12:30)
--- NOTE | 2024-07-02 12:30 | POSTOPAN2_ITS ---
Anesthesia Postop Eval I Sum Postop Eval Completion status Anesthesia document: Postop Eval 1 completed: Yes Anesthesia Postop Eval I Summary Anesthesia Postop Eval I Summary: Anesthesia Postop Eval I: Assessment Summary Airway patent Yes 07/02/24 11:32 SUSPENSION CORD TIER.HBARR Spontaneous unlabored Yes 07/02/24 11:32 SUSPENSION CORD TIER.HBARR respirations Mental status Awake 07/02/24 11:32 SUSPENSION CORD TIER.HBARR nausea No 07/02/24 11:32 SUSPENSION CORD TIER.HBARR Vomiting No 07/02/24 11:32 SUSPENSION CORD TIER.HBARR Anesthesia Postop Eval I: Fluid Summary Crystalloid volume administer 100 07/02/24 11:32 SUSPENSION CORD TIER.HBARR (ml) Colloids volume administered ( ml) Blood Product volume administered (ml) Total IV fluid infused 100 07/02/24 11:32 SUSPENSION CORD TIER.HBARR Anesthesia Postop Eval I: Summary Notes Anesthesia Complication No 07/02/24 11:32 SUSPENSION CORD TIER.HBARR Anesthesia Complication Comment: Post-operative progress note Anesthesia: Postop Eval II Evaluation Mental status: Awake and Calm Pain Level: 3 nausea: No Vomiting: No
--- NOTE | 2024-07-02 12:30 | PCM.POSTANE2 ---
Anesthesia Postop Eval I Sum Postop Eval Completion status Anesthesia document: Postop Eval 1 completed: Yes Anesthesia Postop Eval I Summary Anesthesia Postop Eval I Summary: Anesthesia Postop Eval I: Assessment Summary Airway patent Yes 07/02/24 11:32 MANAGER FURNITURE.HBARR Spontaneous unlabored Yes 07/02/24 11:32 MANAGER FURNITURE.HBARR respirations Mental status Awake 07/02/24 11:32 MANAGER FURNITURE.HBARR nausea No 07/02/24 11:32 MANAGER FURNITURE.HBARR Vomiting No 07/02/24 11:32 MANAGER FURNITURE.HBARR Anesthesia Postop Eval I: Fluid Summary Crystalloid volume administer 100 07/02/24 11:32 MANAGER FURNITURE.HBARR (ml) Colloids volume administered ( ml) Blood Product volume administered (ml) Total IV fluid infused 100 07/02/24 11:32 MANAGER FURNITURE.HBARR Anesthesia Postop Eval I: Summary Notes Anesthesia Complication No 07/02/24 11:32 MANAGER FURNITURE.HBARR Anesthesia Complication Comment: Post-operative progress note Anesthesia: Postop Eval II Evaluation Mental status: Awake and Calm Pain Level: 3 nausea: No Vomiting: No
[2024-07-02 12:32] LABS: Bedside Glucose 106 mg/dL (74-106)
--- NOTE | 2024-07-02 14:00 | SUR.PHASEII ---
TALKED TO DR LUCAS OFFICE FOR DISCHARGE PLAN WITH PT. PER PT AND THERE IS NO HOME HEALTH OR SUPPLIES ARRANGED PRIOR. CONTACTED [facility] THIS WAS PLAN FOR POST CARE, THEY HAVE BEEN TRYING TO REACH PT AND OR SON SINCE June, HOSPICE NURSE CONTACTED AT THIS TIME BY THIS NURSE, SHE WILL BE AT THEIR HOUSE AT 4PM TODAY FOR ADMIT AND MANAGEMENT OF CARE.
== END 2024-07-02 14:10 | disposition home or self-care (01) ==
LOC: SDC 09:26 → AC 09:27
PROVIDERS: PCP Internal Medicine; Referring Provider Surgery; Visit Provider Surgery
PROC: (CPT 32550; principal; 2024-07-02 11:15)
DX: C78.7 Secondary malignant neoplasm of liver and intrahepatic bile duct (principal); R18.0 Malignant ascites; M06.9 Rheumatoid arthritis, unspecified; C50.911 Malignant neoplasm of unspecified site of right female breast; E11.40 Type 2 diabetes mellitus with diabetic neuropathy, unspecified; I10 Essential (primary) hypertension; K58.9 Irritable bowel syndrome, unspecified; E78.5 Hyperlipidemia, unspecified; K21.9 Gastro-esophageal reflux disease without esophagitis; I87.2 Venous insufficiency (chronic) (peripheral); F41.9 Anxiety disorder, unspecified; G25.81 Restless legs syndrome; G89.29 Other chronic pain; H35.30 Unspecified macular degeneration; Z90.49 Acquired absence of other specified parts of digestive tract; Z79.82 Long term (current) use of aspirin; Z79.84 Long term (current) use of oral hypoglycemic drugs; Z86.718 Personal history of other venous thrombosis and embolism; Z79.899 Other long term (current) drug therapy; Z87.891 Personal history of nicotine dependence
CPT/HCPCS: 49418; 00790; 82962; A4216; C1729; J2405